=== PATIENT | male | born 1975 | race Caucasian/White ===

== ENCOUNTER 2019-09-05 20:43 | Emergency (ER) | payer SELFPAY ==
[~2019-09-05] VITALS: Ht 182.9 cm; Wt 65.8 kg
--- OUTSIDE RECORDS SUMMARY | 2019-09-05 20:46 | XMS REPORT ---
Author Author Admin, [place] Organization Unknown Address Unknown Phone Unavailable PROBLEMS Condition Status Date Provider Notes Hepatitis B immunity active Nela Santiikanth Hepatitis A immunity active Nela Santiikanth HIV infection active Nela Santiikabethanyh Osteopenia active Sandra Monge Increased transaminase level active Sandra Monge Hypercalcemia completed - Nela Blackh Hyperkalemia completed - Nela Blackh Hyponatremia completed - Nela Blackh Immunization update active Sandra Monge Onychomycosis, toenails active Sandra Monge SPECIAL SCREENING EXAMINATION OTH SPEC VIRAL DZ completed - Edgard Martin Presbyopia - OU active Chriss Martin Regular astigmatism, bilateral active Chriss Martin Myopia - OU active Chriss Martin Hx Bronchitis acute with bronchospasm completed - Nela Schroeder Hypertriglyceridemia active Sandra Monge Flu shot completed - Nela Blackh BMI < 20 active Sandra Monge Vitamin D deficiency active Sandra Monge Immunization update completed - Nela Schroeder Hx Latent tuberculosis, s/p INH/B6 active Sandra Monge Stop date 03/16/18 COPD active Sandra Monge seen on CXR TOBACCO USE DISORDER, MODERATE active Jasper Bobo ALCOHOL USE DISORDER, MODERATE active Jasper Bobo DEPRESSIVE DISORDER, OTHER SPECIFIED active Jasper Bobo Screening for hypercholesterolemia completed - Nela Schroeder ENCOUNTERS Date Type Provider Location Encounter Diagnosis - Ambulatory Encounter Dorothy Alberts [facility] Contact [facility] UNK - Ambulatory Encounter Isi Bliss [facility] Contact [facility] UNK - Ambulatory Encounter Buck Arringtons Isi Isbell [facility] Contact [facility] UNK - Ambulatory Encounter Nela Blackh [facility] UNK - Ambulatory Encounter Nela Canasnth [facility] UNK - Ambulatory Encounter Nela Schroeder [facility] UNK - Ambulatory Encounter Nela Pineda [facility] Screening for hypercholesterolemiaImmunization updateFlu shotHx Bronchitis acute with bronchospasmHyponatremiaHyperkalemiaHypercalcemia - Ambulatory Encounter Rinal Recinos [facility] UNK - Ambulatory Encounter Rinal Recinos Cliff Jackson [facility] UNK - Ambulatory Encounter Rinal Recinos [facility] UNK - Ambulatory Encounter Mare Carbajal [facility] UNK - Ambulatory Encounter Dorothy Nash [facility] Contact [facility] UNK - Ambulatory Encounter Rinal Recinos [facility] UNK - Ambulatory Encounter Cliff Arnold [facility] UNK - Ambulatory Encounter Nela Canasnth [facility] UNK - Ambulatory Encounter Nela Canasnth [facility] Adult Medicine UNK - Ambulatory Encounter Dorothy Edwin Nela Canasbethanykirill Canasbethanyh Srinath Alberts [facility] Contact Center UNK - Ambulatory Encounter Nela Canasbethanykirill Canasbethanyh [facility] Adult Medicine UNK - Ambulatory Encounter Martha Stallworth [facility] UNK - Ambulatory Encounter Nela Rondon Santikendrabethanyh [facility] Adult Medicine UNK - Ambulatory Encounter Nela Canasbethanykirill Rondon Santikendraanthony Stallworth [facility] Adult Medicine HIV infectionHepatitis A immunityHepatitis B immunity - Ambulatory Encounter Cliff Napier [facility] Contact Center UNK - Ambulatory Encounter Mare Carbajal [facility] Adult Medicine UNK - Ambulatory Encounter Rinal Recinos Cliff Napier [facility] Adult Medicine UNK - Ambulatory Encounter Cliff Recinos [facility] Adult [facility] UNK - Ambulatory Encounter Rinal Recinos [facility] Adult Medicine UNK - Ambulatory Encounter Rinal Recinos [facility] Adult Medicine UNK - Ambulatory Encounter Jazlyn Nash [facility] Adult Medicine UNK - Ambulatory Encounter Rinal Recinos [facility] Adult Medicine UNK - Ambulatory Encounter Rinal Recinos [facility] Adult Medicine UNK - Ambulatory Encounter Rinshara Recinos [facility] Adult Medicine UNK - Ambulatory Encounter Sandra Monge [facility] Adult Medicine UNK - Ambulatory Encounter Sandra Monge [facility] Adult Medicine Osteopenia - Ambulatory Encounter Cliff Jackson [facility] Adult Medicine UNK - Ambulatory Encounter Rinshara Recinos [facility] Adult Medicine UNK - Ambulatory Encounter Destinishara Jorje Jackson [facility] Adult Medicine UNK - Ambulatory Encounter Cliff Jackson [facility] Adult Medicine UNK - Ambulatory Encounter Cliff Jackson [facility] Adult Medicine UNK - Ambulatory Encounter Sandra Monge [facility] Jeromy Recinos [facility] Adult Medicine UNK - Ambulatory Encounter Sandra Monge [facility] Meghna Arnold [facility] Adult Medicine UNK - Ambulatory Encounter [facility] En[facility] Fax [facility] - Ambulatory Encounter Fax Status [facility] UNK - Ambulatory Encounter Fax Status [facility] UNK - Ambulatory Encounter Mare Jamison Rinal Recinos Ragini Murillo [facility] Adult Medicine UNK - Ambulatory Encounter Rinal Jorje Garvey Raven [facility] Adult Medicine UNK - Ambulatory Encounter Jeromy Recinos [facility] Adult Medicine UNK - Ambulatory Encounter Meghna Nash [facility] Adult Medicine UNK - Amb[facility] - Ambulatory Encounter Sandra Monge [facility] Adult Medicine UNK - Ambulatory Encounter Sandra Rubily Nash [facility] Adult Medicine UNK - Ambulatory Encounter Lashaun Monge [facility] UNK - Ambulatory Encounter Sandra Monge [facility] Adult Medicine UNK - Ambulatory Encounter Jeromy Recinos [facility] Adult Medicine UNK - Ambulatory Encounter Jeromy Jackson [facility] Adult Medicine UNK - Ambulatory Encounter Cliff Jackson [facility] Adult Medicine UNK - Ambulatory Encounter Meghna Nash [facility] Adult Medicine UNK - Ambulatory Encounter Cliff Jackson [facility] Adult Medicine UNK - Ambulatory Encounter Fax Status [facility] Services UNK - Ambulatory Encounter Fax Status [facility] Services UNK - Ambulatory Encounter Sandra Monge [facility] Adult Medicine UNK - Ambulatory Encounter Sandra Monge [facility] Adult Medicine UNK - Ambulatory Encounter Sandra Mariposa Coffman Charity Quiles [facility] Adult Medicine Increased transaminase level - Ambulatory Encounter Sandra GoldsteinLogkendrick [facility] Adult Medicine UNK - Ambulatory Encounter Sandra Mcgowan [facility] Adult Medicine UNK - Ambulatory Encounter Sandra GoldsteinLogkendrick [facility] Adult Medicine UNK - Ambulatory Encounter Sandra Monge [facility] Adult Medicine UNK - Ambulatory Encounter Sandra Martinez [facility] Adult Medicine Hx Bronchitis acute with bronchospasmHyponatremiaHyperkalemiaHypercalcemia - Ambulatory Encounter Sandra Lanza [facility], [facility] Adult Medicine UNK - Ambulatory Encounter Sandra Lanza [facility], [facility] Adult Medicine UNK - Ambulatory Encounter Cliff Jackson [facility] Adult Medicine UNK - Ambulatory Encounter Sandra Monge [facility] Adult Medicine UNK - Ambulatory Encounter Sandra GoldsteinLogkendrick Jackson [facility] Adult Medicine UNK - Ambulatory Encounter Sandra Lanza [facility], [facility] Adult Medicine UNK - Ambulatory Encounter Sandra Lanza [facility], [facility] Adult Medicine UNK - Ambulatory Encounter Boni Cristina [facility] Public Health Services UNK - Ambulatory Encounter Jazmin Bullard [facility] Vision UNK - Ambulatory Encounter Jazmin Bullard [facility] Vision UNK - Ambulatory Encounter Sandra Monge [facility] Adult Medicine UNK - Ambulatory Encounter Sandra Monge [facility] Adult Medicine UNK - Ambulatory Encounter Sandra Monge [facility] Adult Medicine UNK - Ambulatory Encounter Sandra Martinez [facility] Adult Medicine Onychomycosis, toenailsImmunization update - Ambulatory Encounter Jazmin Bullard [facility] Vision UNK - Ambulatory Encounter Edgard Song Mario Edgard Martin [facility] Vision UNK - Ambulatory Encounter Edgard Nohemi Mario Martin [facility] Vision UNK - Ambulatory Encounter Edgard Nohemi Mario Hoffmann [facility] Vision SPECIAL SCREENING EXAMINATION OTH SPEC VIRAL DZ - Ambulatory Encounter Chrissjesus Martin [facility] Vision UNK - Ambulatory Encounter Chrissjesus Martin [facility] Vision UNK - Ambulatory Encounter Chrissjesus Martin [facility] Vision UNK - Ambulatory Encounter Chrissjesus Martin Jazmin Bullard [facility] Vision Myopia - OURegular astigmatism, bilateralPresbyopia - OU - Ambulatory Encounter Sandra GoldsteinLogic [facility] Adult Medicine UNK - Ambulatory Encounter Sandra Vargas [facility] Adult Medicine UNK - Ambulatory Encounter Sandra Vargas [facility] Adult Medicine UNK - Ambulatory Encounter [facility] - Ambulatory Encounter Sandra Lanza [facility], [facility] Adult Medicine UNK - Ambulatory Encounter Sandra Lanza [facility], [facility] Adult Medicine UNK - Ambulatory Encounter Sandra Lanza [facility], [facility] Adult Medicine UNK - Ambulatory Encounter Sandra Lanza [facility], [facility] Adult Medicine UNK - Ambulatory Encounter Sandra Lanza [facility], [facility] Adult Medicine UNK - Ambulatory Encounter Sandra Lanza [facility], [facility] Adult Medicine UNK - Ambulatory Encounter Khloe Mckeon [facility] UNK - Ambulatory Encounter hKloe Lee [facility] UNK - Ambulatory Encounter Amaury Nath [facility] Adult Medicine UNK - Ambulatory Encounter Amaury Nath [facility] Adult Medicine UNK - Ambulatory Encounter Sandra Monge [facility] Adult Medicine UNK - Ambulatory Encounter Sandra Monge [facility] Adult Medicine UNK - Ambulatory Encounter Sandra Hill [facility] Adult Medicine Hx Latent tuberculosis, s/p INH/B6Hx Bronchitis acute with bronchospasm - Ambulatory Encounter Buck Ledesma [facility] Behavioral Health UNK - Ambulatory Encounter Buck Kowalski [facility] Health UNK - Ambulatory Encounter Sandra Vargas [facility] Adult Medicine UNK - Ambulatory Encounter Sandra aVrgas [facility] Adult Medicine UNK - Ambulatory Encounter Sandra Bush [facility] Services UNK - Ambulatory Encounter Buck Ledesma [facility] Behavioral Health UNK - Ambulatory Encounter Buck Ledesma [facility] Behavioral Health UNK - Ambulatory Encounter Buck Solares [facility] Contact Center UNK - Ambulatory Encounter Sandra Camarena [facility] Services UNK - Ambulatory Encounter Sandra Castro [facility] Adult Medicine UNK - Ambulatory Encounter Sandra Monge [facility] Adult Medicine UNK - Ambulatory Encounter Sandra Monge [facility] Adult Medicine UNK - Ambulatory Encounter Sandra Kessler [facility] Adult Medicine UNK - Ambulatory Encounter Sandra Monge [facility] Adult Medicine UNK - Ambulatory Encounter Sandra Kowalski [facility] Adult Medicine UNK - Ambulatory Encounter Nancy [facility] UNK - Ambulatory Encounter Khloe Lee [facility] UNK - Ambulatory Encounter Nancy GoldsteinLogic [facility] Adult Medicine UNK - Ambulatory Encounter Buck Burris [facility] Health UNK - Ambulatory Encounter Sandra Monge [facility] Adult Medicine UNK - Ambulatory Encounter Sandra Hill [facility] Adult Medicine Hx Latent tuberculosis, s/p INH/P6Tbyfzkyzoneeothnerrz - Ambulatory Encounter Sandra Monge [facility] Adult Medicine UNK - Ambulatory Encounter Sandra Boss [facility] Adult Medicine UNK - Ambulatory Encounter Buck Clarke [facility] UNK - Ambulatory Encounter Buck Ledesma [facility] Behavioral Health UNK - Ambulatory Encounter Buck GoldsteinLogic [facility] Behavioral Health UNK - Ambulatory Encounter Sandra Monge [facility] Adult Medicine UNK - Ambulatory Encounter Buck Caro [facility] Behavior[facility] Health UNK - Ambulatory Encounter Buck Burris [facility] Behavioral Health UNK - Ambulatory Encounter Lashaun Mckeon [facility] UNK - Ambulatory Encounter [facility] UNK - Ambulatory Encounter Buck Ledesma [facility] Health UNK - Ambulatory Encounter Buck Bliss [facility] Health UNK - Ambulatory Encounter Sandra Monge [employer] Adult Medicine UNK - Ambulatory Encounter Sandra Monge [facility] Adult Medicine UNK - Ambulatory Encounter Sandra Chen [facility] Adult Medicine Flu shot - Ambulatory Encounter Sandra GoldsteinLogkendrick [facility] Adult Medicine UNK - Ambulatory Encounter Sandra Chen [facility] Adult Medicine UNK - Ambulatory Encounter Sandra Monge [facility] Adult Medicine UNK - Ambulatory Encounter Sandra Chen [facility] Adult Medicine BMI < 20 - Ambulatory Encounter Sandra GoldsteinLogic [facility] Adult Medicine UNK - Ambulatory [facility] - Ambulatory Encounter Sandra Monge [facility] Adult Medicine UNK - Ambulatory Encounter Sandra Chen [facility] Adult Medicine Immunization updateVitamin D deficiency - Ambulatory Encounter [facility] UNK - Ambulatory Encounter Jason Gilliam [facility] UNK - Ambulatory Encounter Sandra Hill [facility] Adult Medicine UNK - Ambulatory Encounter [facility] Care Coordination Desktop Dex Martinez [facility] UNK - Ambulatory Encounter Sandra Monge [facility] Adult Medicine COPDHx Latent tuberculosis, s/p INH/B6 - Ambulatory Encounter Sandra Kowalski [facility] Adult Medicine UNK - Ambulatory Encounter Maximus Yancey [facility] Hook Up Driver UNK - Ambulatory Encounter Maximus Yancey [facility] Hook Up Driver UNK - Ambulatory Encounter Jason Nath [facility] UNK - Ambulatory Encounter Sandra Kowalski [facility] Adult Medicine UNK - Ambulatory Encounter Maximus Yancey [facility] Hook Up Driver UNK - Ambulatory Encounter Sandra Mcgowan [facility] Adult Medicine UNK - Ambulatory Encounter Maximus Yancey [facility] Hook Up Driver UNK - Ambulatory Encounter Sandra Monge [facility] Adult Medicine UNK - Ambulatory Encounter Jasper Keller [facility] Behavioral Health DEPRESSIVE DISORDER, OTHER SPECIFIEDALCOHOL USE DISORDER, MODERATETOBACCO USE DISORDER, MODERATE - Ambulatory Encounter Sandra Jamison [facility] Adult Medicine - Ambulatory Encounter Sandra Kowalski [facility] Adult Medicine UNK - Ambulatory Encounter Sandra Day [facility] Adult Medicine Screening for hypercholesterolemia - Ambulatory Encounter Adrian Cristina [facility] Public Health Services UNK - Ambulatory Encounter [facility] Vision UNK VITAL SIGNS No Information Available Allergies No Known Allergy Information REASON FOR REFERRAL No Information Available RESULTS Date Observation Value Provider Reference Range Interpretation Location alanine aminotransferase (SGPT), serum 26 1/L [facility] 0-44 " aspartate aminotransferase (SGOT), serum 37 1/L [facility] 0-40 " alkaline phosphatase, serum 62 1/L [facility] 39-117 " bilirubin, serum, total 0.7 mg/dL [facility] 0.0-1.2 " albumin/globulin ratio, serum 1.9 [facility] 1.2-2.2 " globulin, serum 2.6 [facility] 1.5-4.5 " albumin, serum 4.9 g/dL [facility] 3.5-5.5 " protein, total, serum 7.5 g/dL [facility] 6.0-8.5 " calcium, serum 10.9 mg/dL [facility] 8.7-10.2 High " carbon dioxide, venous blood 25 mmol/L [facility] 20-29 " chloride, serum 96 mmol/L [facility] 96-106 " potassium, serum 5.4 mmol/L [facility] 3.5-5.2 High " sodium, serum 137 mmol/L [facility] 134-144 " urea nitrogen/creatinine ratio, serum 12 [facility] 9-20 " eGFR if 73 mL/min/((173/100).m2) [facility] >59 " Estimated Glomerular Filtration Rate (calc) 64 mL/min/((173/100).m2) [facility] >59 " creatinine, serum 1.34 mg/dL [facility] 0.76-1.27 High " urea nitrogen, blood 16 mg/dL [facility] 6-24 " blood glucose, random 103 mg/dL [facility] 65-99 High calcium, urine, 24 hour 539.6 mg/24h [facility] 100.0-300.0 High " calcium, urine 9.9 mg/dL [facility] Not Estab. " creatinine, urine, 24 hour 2076 mg/24h [facility] [id number] High " creatinine, random, urine 38.1 mg/dL [facility] Not Estab. parathormone, serum 15 pg/mL [facility] 15-65 HIV-1RNA, serum, by PCR, quantitative <20 copies/mL [facility] " alanine aminotransferase (SGPT), serum 22 1/L [facility] 0-44 " aspartate aminotransferase (SGOT), serum 31 1/L [facility] 0-40 " alkaline phosphatase, serum 65 1/L [facility] 39-117 " bilirubin, serum, total 0.4 mg/dL [facility] 0.0-1.2 " albumin/globulin ratio, serum 2.2 [facility] 1.2-2.2 " globulin, serum 2.2 [facility] 1.5-4.5 " albumin, serum 4.9 g/dL [facility] 3.5-5.5 " protein, total, serum 7.1 g/dL [facility] 6.0-8.5 " calcium, serum 10.5 mg/dL [facility] 8.7-10.2 High " carbon dioxide, venous blood 26 mmol/L [facility] 20-29 " chloride, serum 92 mmol/L [facility] 96-106 Low " potassium, serum 5.0 mmol/L [facility] 3.5-5.2 " sodium, serum 135 mmol/L [facility] 134-144 " urea nitrogen/creatinine ratio, serum 10 [facility] 9-20 " eGFR if 89 mL/min/((173/100).m2) [facility] >59 " Estimated Glomerular Filtration Rate (calc) 77 mL/min/((173/100).m2) [facility] >59 " creatinine, serum 1.14 mg/dL [facility] 0.76-1.27 " urea nitrogen, blood 11 mg/dL [facility] 6-24 " blood glucose, random 89 mg/dL [facility] 65-99 " immature granulocytes, percentage of total cells, blood 0 % [facility] Not Estab. " basophil count, absolute 0.0 x10E3/uL [facility] 0.0-0.2 " Eosinophil Absolute Count 0.2 X10E3/UL [facility] 0.0-0.4 " monocyte count, blood, automated 0.6 X10E3/UL [facility] 0.1-0.9 " lymphocyte count, blood, automated 2.7 X10E3/UL [facility] 0.7-3.1 " Absolute Neutrophils 3.6 X10E3/UL [facility] 1.4-7.0 " basophils as percent of blood leukocytes 0 % [facility] Not Estab. " eosinophils as percent of blood leukocytes 2 % [facility] Not Estab. " monocytes as percent of blood leukocytes 8 % [facility] Not Estab. " lymphocytes as percent of blood leukocytes 38 % [facility] Not Estab. " neutrophils as percent of blood leukocytes 52 % [facility] Not Estab. " platelet count 213 X10E3/UL [facility] 150-450 " red blood cell distribution width 14.6 % [facility] 12.3-15.4 " mean corpuscular hemoglobin concentration, RBC 32.8 G/DL [facility] 31.5-35.7 " mean corpuscular hemoglobin, RBC 33.6 pg [facility] 26.6-33.0 High " mean corpuscular volume, RBC 102 fL [facility] 79-97 High " hematocrit, blood 45.7 % [facility] 37.5-51.0 " hemoglobin, blood 15.0 g/dL [facility] 13.0-17.7 " erythrocyte (RBC) count 4.47 X10E6/UL [facility] 4.14-5.80 " leukocyte count, blood 7.0 X10E3/UL [facility] 3.4-10.8 " CD4/CD8 ratio 1.06 [facility] 0.92-3.72 " T-suppressor cells (CD8) as percent of blood lymphocytes 47.4 % [facility] 12.0-35.5 High " absolute CD8 1280 [facility] 109-897 High " T-helper cells (CD4) as percent of blood lymphocytes 50.1 % [facility] 30.8-58.5 " T-helper cells (CD4) count 1353 /UL [facility] [id number] parathormone, serum 16 pg/mL [facility] 15-65 " magnesium, serum 2.0 mg/dL [facility] 1.6-2.3 " phosphate, serum 3.9 mg/dL [facility] 2.5-4.5 " vitamin D 25-hydroxy, serum 32.8 ng/mL [facility] 30.0-100.0 " globulins, serum, total 2.7 g/dL [facility] 2.2-3.9 " gamma globulin, serum, monoclonal spike Not Observed [facility] Not Observed " gamma globulin, serum 900 mg/dL [facility] Units converted. See lab report for original value. " beta globulin, serum 1.0 g/dL [facility] 0.7-1.3 " alpha-2 globulin, serum 0.6 g/dL [facility] 0.4-1.0 " alpha-1 globulin, serum 0.2 g/dL [facility] 0.0-0.4 " alanine aminotransferase (SGPT), serum 48 1/L [facility] 0-44 High " aspartate aminotransferase (SGOT), serum 49 1/L [facility] 0-40 High " alkaline phosphatase, serum 69 1/L [facility] 39-117 " bilirubin, serum, total 0.3 mg/dL [facility] 0.0-1.2 " albumin/globulin ratio, serum 1.5 [facility] 0.7-1.7 " globulin, serum 2.2 [facility] 1.5-4.5 " albumin, serum 4.1 g/dL [facility] 2.9-4.4 " protein, total, serum 6.8 g/dL [facility] 6.0-8.5 " calcium, serum 10.4 mg/dL [facility] 8.7-10.2 High " carbon dioxide, venous blood 26 mmol/L [facility] 20-29 " chloride, serum 95 mmol/L [facility] 96-106 Low " potassium, serum 4.9 mmol/L [facility] 3.5-5.2 " sodium, serum 135 mmol/L [facility] 134-144 " urea nitrogen/creatinine ratio, serum 9 [facility] 9-20 " eGFR if 90 mL/min/((173/100).m2) [facility] >59 " Estimated Glomerular Filtration Rate (calc) 78 mL/min/((173/100).m2) [facility] >59 " creatinine, serum 1.14 mg/dL [facility] 0.76-1.27 " urea nitrogen, blood 10 mg/dL [facility] 6-24 " blood glucose, random 78 mg/dL [facility] 65-99 osmolality, urine 157 MOSMOL/KG [facility] " calcium, urine, 24 hour 682.7 mg/24h [facility] 100.0-300.0 High " calcium, urine 11.1 mg/dL [facility] Not Estab. " creatinine, urine, 24 hour 1562 mg/24h [facility] [id number] " creatinine, random, urine 25.4 mg/dL [facility] Not Estab. " chloride, urine random <20 mmol/L [facility] Not Estab. " potassium, urine 7.7 mmol/L [facility] Not Estab. " sodium, urine 22 mmol/L [facility] Not Estab. hepatitis A antibody, total Positive [facility] Negative Abnormal " hepatitis B core antibody, total Negative [facility] Negative " hepatitis B surface antigen Negative [facility] Negative " hepatitis C antibody, serum <0.1 [facility] 0.0-0.9 " hepatitis B surface antibody Reactive [facility] " Hepatitis C virus (HCV) RNA, PCR, quantitative HCV Not Detected IU/mL [facility] " alanine aminotransferase (SGPT), serum 73 1/L [facility] 0-44 High " aspartate aminotransferase (SGOT), serum 71 1/L [facility] 0-40 High " alkaline phosphatase, serum 69 1/L [facility] 39-117 " bilirubin, serum, total 0.5 mg/dL [facility] 0.0-1.2 " albumin/globulin ratio, serum 2.0 [facility] 1.2-2.2 " globulin, serum 2.4 [facility] 1.5-4.5 " albumin, serum 4.9 g/dL [facility] 3.5-5.5 " protein, total, serum 7.3 g/dL [facility] 6.0-8.5 " calcium, serum 10.5 mg/dL [facility] 8.7-10.2 High " carbon dioxide, venous blood 29 mmol/L [facility] 20-29 " chloride, serum 96 mmol/L [facility] 96-106 " potassium, serum 5.1 mmol/L [facility] 3.5-5.2 " sodium, serum 136 mmol/L [facility] 134-144 " urea nitrogen/creatinine ratio, serum 9 [facility] 9-20 " eGFR if 102 mL/min/((173/100).m2) [facility] >59 " Estimated Glomerular Filtration Rate (calc) 88 mL/min/((173/100).m2) [facility] >59 " creatinine, serum 1.03 mg/dL [facility] 0.76-1.27 " urea nitrogen, blood 9 mg/dL [facility] 6-24 " blood glucose, random 101 mg/dL [facility] 65-99 High parathormone, serum 15 pg/mL [facility] 15-65 " calcium, serum, ionized 5.6 mg/dL [facility] 4.5-5.6 " LDL cholesterol, serum 44 mg/dL [facility] 0-99 " very low density lipoproteins 9 mg/dL [facility] 5-40 " HDL cholesterol, serum 115 mg/dL [facility] >39 " triglyceride, serum, fasting 43 mg/dL [facility] 0-149 " cholesterol, serum 168 mg/dL [facility] 100-199 " alanine aminotransferase (SGPT), serum 121 1/L [facility] 0-44 High " aspartate aminotransferase (SGOT), serum 167 1/L [facility] 0-40 High " alkaline phosphatase, serum 78 1/L [facility] 39-117 " bilirubin, serum, total 0.6 mg/dL [facility] 0.0-1.2 " albumin/globulin ratio, serum 1.8 [facility] 1.2-2.2 " globulin, serum 2.6 [facility] 1.5-4.5 " albumin, serum 4.8 g/dL [facility] 3.5-5.5 " protein, total, serum 7.4 g/dL [facility] 6.0-8.5 " calcium, serum 11.0 mg/dL [facility] 8.7-10.2 High " carbon dioxide, venous blood 27 mmol/L [facility] 20-29 " chloride, serum 90 mmol/L [facility] 96-106 Low " potassium, serum 5.3 mmol/L [facility] 3.5-5.2 High " sodium, serum 134 mmol/L [facility] 134-144 " urea nitrogen/creatinine ratio, serum 8 [facility] 9-20 Low " eGFR if 76 mL/min/((173/100).m2) [facility] >59 " Estimated Glomerular Filtration Rate (calc) 66 mL/min/((173/100).m2) [facility] >59 " creatinine, serum 1.31 mg/dL [facility] 0.76-1.27 High " urea nitrogen, blood 11 mg/dL [facility] 6-24 " blood glucose, random 92 mg/dL [facility] 65-99 creatinine, random, urine 76.1 mg/dL [facility] Not Estab. " sodium, urine <20 mmol/L [facility] Not Estab. " urinalysis, microscopic examination MICNIP [facility] " nitrate, urine Negative [facility] Negative " urobilinogen, urine, semiquantitative (dipstick) 0.2 [facility] 0.2-1.0 " bilirubin, urine Negative [facility] Negative " ketones, urine, by test strip Negative [facility] Negative " glucose, urine, semiquantitative Negative [facility] Negative " protein, urine, semiquantitative (dipstick) Negative [facility] Negative/Trace " leukocyte esterase, urine, by dipstick Negative [facility] Negative " appearance, urine Clear [facility] Clear " urine color Yellow [facility] Yellow " pH, urine, semiquantitative 6.5 [facility] 5.0-7.5 " specific gravity, body fluid 1.011 [facility] 1.005-1.030 vitamin D 25-hydroxy, serum 14.3 ng/mL [facility] 30.0-100.0 Low " rapid plasma reagin antibody, serum Non Reactive [facility] Non Reactive " HIV-1RNA, serum, by PCR, quantitative 160 /mL [facility] " LDL cholesterol, serum 36 mg/dL [facility] 0-99 " very low density lipoproteins 14 mg/dL [facility] 5-40 " HDL cholesterol, serum 109 mg/dL [facility] >39 " triglyceride, serum, fasting 71 mg/dL [facility] 0-149 " cholesterol, serum 159 mg/dL [facility] 100-199 " alanine aminotransferase (SGPT), serum 68 1/L [facility] 0-44 High " aspartate aminotransferase (SGOT), serum 98 1/L [facility] 0-40 High " alkaline phosphatase, serum 78 1/L [facility] 39-117 " bilirubin, serum, total 0.6 mg/dL [facility] 0.0-1.2 " albumin/globulin ratio, serum 2.2 [facility] 1.2-2.2 " globulin, serum 2.3 [facility] 1.5-4.5 " albumin, serum 5.0 g/dL [facility] 3.5-5.5 " protein, total, serum 7.3 g/dL [facility] 6.0-8.5 " calcium, serum 10.7 mg/dL [facility] 8.7-10.2 High " carbon dioxide, venous blood 23 mmol/L [facility] 20-29 " chloride, serum 91 mmol/L [facility] 96-106 Low " potassium, serum 5.6 mmol/L [facility] 3.5-5.2 High " sodium, serum 130 mmol/L [facility] 134-144 Low " urea nitrogen/creatinine ratio, serum 6 [facility] 9-20 Low " eGFR if 89 mL/min/((173/100).m2) [facility] >59 " Estimated Glomerular Filtration Rate (calc) 77 mL/min/((173/100).m2) [facility] >59 " creatinine, serum 1.15 mg/dL [facility] 0.76-1.27 " urea nitrogen, blood 7 mg/dL [facility] 6-24 " blood glucose, random 89 mg/dL [facility] 65-99 " immature granulocytes, percentage of total cells, blood 0 % [facility] Not Estab. " basophil count, absolute 0.0 x10E3/uL [facility] 0.0-0.2 " Eosinophil Absolute Count 0.1 X10E3/UL [facility] 0.0-0.4 " monocyte count, blood, automated 0.5 X10E3/UL [facility] 0.1-0.9 " lymphocyte count, blood, automated 1.9 X10E3/UL [facility] 0.7-3.1 " Absolute Neutrophils 3.3 X10E3/UL [facility] 1.4-7.0 " basophils as percent of blood leukocytes 1 % [facility] Not Estab. " eosinophils as percent of blood leukocytes 2 % [facility] Not Estab. " monocytes as percent of blood leukocytes 9 % [facility] Not Estab. " lymphocytes as percent of blood leukocytes 32 % [facility] Not Estab. " neutrophils as percent of blood leukocytes 56 % [facility] Not Estab. " platelet count 209 X10E3/UL [facility] 150-379 " red blood cell distribution width 15.2 % [facility] 12.3-15.4 " mean corpuscular hemoglobin concentration, RBC 34.1 G/DL [facility] 31.5-35.7 " mean corpuscular hemoglobin, RBC 33.1 pg [facility] 26.6-33.0 High " mean corpuscular volume, RBC 97 fL [facility] 79-97 " hematocrit, blood 51.9 % [facility] 37.5-51.0 High " hemoglobin, blood 17.7 g/dL [facility] 13.0-17.7 " erythrocyte (RBC) count 5.34 X10E6/UL [facility] 4.14-5.80 " leukocyte count, blood 5.9 X10E3/UL [facility] 3.4-10.8 " CD4/CD8 ratio 0.96 [facility] 0.92-3.72 " T-suppressor cells (CD8) as percent of blood lymphocytes 46.9 % [facility] 12.0-35.5 High " absolute CD8 891 [facility] 109-897 " T-helper cells (CD4) as percent of blood lymphocytes 45.2 % [facility] 30.8-58.5 " T-helper cells (CD4) count 859 /UL [facility] [phone] vitamin D 25-hydroxy, serum 35.4 ng/mL [facility] 30.0-100.0 " rapid plasma reagin antibody, serum Non Reactive [facility] Non Reactive " HIV-1RNA, serum, by PCR, quantitative <20 copies/mL [facility] " LDL cholesterol, serum 109 mg/dL [facility] 0-99 High " very low density lipoproteins 43 mg/dL [facility] 5-40 High " HDL cholesterol, serum 85 mg/dL [facility] >39 " triglyceride, serum, fasting 216 mg/dL [facility] 0-149 High " cholesterol, serum 237 mg/dL [facility] 100-199 High " alanine aminotransferase (SGPT), serum 21 1/L [facility] 0-44 " aspartate aminotransferase (SGOT), serum 31 1/L [facility] 0-40 " alkaline phosphatase, serum 78 1/L [facility] 39-117 " bilirubin, serum, total <0.2 mg/dL [facility] 0.0-1.2 " albumin/globulin ratio, serum 1.8 [facility] 1.2-2.2 " globulin, serum 2.8 [facility] 1.5-4.5 " albumin, serum 5.1 g/dL [facility] 3.5-5.5 " protein, total, serum 7.9 g/dL [facility] 6.0-8.5 " calcium, serum 11.0 mg/dL [facility] 8.7-10.2 High " carbon dioxide, venous blood 23 mmol/L [facility] 20-29 " chloride, serum 96 mmol/L [facility] 96-106 " potassium, serum 5.2 mmol/L [facility] 3.5-5.2 " sodium, serum 138 mmol/L [facility] 134-144 " urea nitrogen/creatinine ratio, serum 15 [facility] 9-20 " eGFR if 96 mL/min/((173/100).m2) [facility] >59 " Estimated Glomerular Filtration Rate (calc) 83 mL/min/((173/100).m2) [facility] >59 " creatinine, serum 1.08 mg/dL [facility] 0.76-1.27 " urea nitrogen, blood 16 mg/dL [facility] 6-24 " blood glucose, random 53 mg/dL [facility] 65-99 Low " immature granulocytes, percentage of total cells, blood 1 % [facility] Not Estab. " basophil count, absolute 0.0 x10E3/uL [facility] 0.0-0.2 " Eosinophil Absolute Count 0.1 X10E3/UL [facility] 0.0-0.4 " monocyte count, blood, automated 0.7 X10E3/UL [facility] 0.1-0.9 " lymphocyte count, blood, automated 2.7 X10E3/UL [facility] 0.7-3.1 " Absolute Neutrophils 3.6 X10E3/UL [facility] 1.4-7.0 " basophils as percent of blood leukocytes 0 % [facility] Not Estab. " eosinophils as percent of blood leukocytes 2 % [facility] Not Estab. " monocytes as percent of blood leukocytes 9 % [facility] Not Estab. " lymphocytes as percent of blood leukocytes 38 % [facility] Not Estab. " neutrophils as percent of blood leukocytes 50 % [facility] Not Estab. " platelet count 296 X10E3/UL [facility] 150-379 " red blood cell distribution width 14.3 % [facility] 12.3-15.4 " mean corpuscular hemoglobin concentration, RBC 33.6 G/DL [facility] 31.5-35.7 " mean corpuscular hemoglobin, RBC 34.5 pg [facility] 26.6-33.0 High " mean corpuscular volume, RBC 103 fL [facility] 79-97 High " hematocrit, blood 42.6 % [facility] 37.5-51.0 " hemoglobin, blood 14.3 g/dL [facility] 13.0-17.7 " erythrocyte (RBC) count 4.15 X10E6/UL [facility] 4.14-5.80 " leukocyte count, blood 7.2 X10E3/UL [facility] 3.4-10.8 " CD4/CD8 ratio 0.90 [facility] 0.92-3.72 Low " T-suppressor cells (CD8) as percent of blood lymphocytes 50.2 % [facility] 12.0-35.5 High " absolute CD8 1355 [facility] 109-897 High " T-helper cells (CD4) as percent of blood lymphocytes 45.1 % [facility] 30.8-58.5 " T-helper cells (CD4) count 1218 /UL [facility] [id number] rapid plasma reagin antibody, serum Non Reactive [facility] Non Reactive " HIV-1RNA, serum, by PCR, quantitative <20 copies/mL [facility] " LDL cholesterol, serum 65 mg/dL [facility] 0-99 " very low density lipoproteins 39 mg/dL [facility] 5-40 " HDL cholesterol, serum 36 mg/dL [facility] >39 Low " triglyceride, serum, fasting 194 mg/dL [facility] 0-149 High " cholesterol, serum 140 mg/dL [facility] 100-199 " alanine aminotransferase (SGPT), serum 51 1/L [facility] 0-44 High " aspartate aminotransferase (SGOT), serum 96 1/L [facility] 0-40 High " alkaline phosphatase, serum 74 1/L [facility] 39-117 " bilirubin, serum, total 1.3 mg/dL [facility] 0.0-1.2 High " albumin/globulin ratio, serum 1.5 [facility] 1.2-2.2 " globulin, serum 2.8 [facility] 1.5-4.5 " albumin, serum 4.1 g/dL [facility] 3.5-5.5 " protein, total, serum 6.9 g/dL [facility] 6.0-8.5 " calcium, serum 10.0 mg/dL [facility] 8.7-10.2 " carbon dioxide, venous blood 24 mmol/L [facility] 18-29 " chloride, serum 93 mmol/L [facility] 96-106 Low " potassium, serum 4.9 mmol/L [facility] 3.5-5.2 " sodium, serum 135 mmol/L [facility] 134-144 " urea nitrogen/creatinine ratio, serum 13 [facility] 9-20 " eGFR if 68 mL/min/((173/100).m2) [facility] >59 " Estimated Glomerular Filtration Rate (calc) 59 mL/min/((173/100).m2) [facility] >59 Low " creatinine, serum 1.44 mg/dL [facility] 0.76-1.27 High " urea nitrogen, blood 18 mg/dL [facility] 6-24 " blood glucose, random 106 mg/dL [facility] 65-99 High " immature granulocytes, percentage of total cells, blood 0 % [facility] Not Estab. " basophil count, absolute 0.0 x10E3/uL [facility] 0.0-0.2 " Eosinophil Absolute Count 0.1 X10E3/UL [facility] 0.0-0.4 " monocyte count, blood, automated 0.8 X10E3/UL [facility] 0.1-0.9 " lymphocyte count, blood, automated 3.1 X10E3/UL [facility] 0.7-3.1 " Absolute Neutrophils 4.6 X10E3/UL [facility] 1.4-7.0 " basophils as percent of blood leukocytes 0 % [facility] Not Estab. " eosinophils as percent of blood leukocytes 1 % [facility] Not Estab. " monocytes as percent of blood leukocytes 9 % [facility] Not Estab. " lymphocytes as percent of blood leukocytes 36 % [facility] Not Estab. " neutrophils as percent of blood leukocytes 54 % [facility] Not Estab. " platelet count 285 X10E3/UL [facility] 150-379 " red blood cell distribution width 14.7 % [facility] 12.3-15.4 " mean corpuscular hemoglobin concentration, RBC 34.2 G/DL [facility] 31.5-35.7 " mean corpuscular hemoglobin, RBC 34.5 pg [facility] 26.6-33.0 High " mean corpuscular volume, RBC 101 fL [facility] 79-97 High " hematocrit, blood 38.6 % [facility] 37.5-51.0 " hemoglobin, blood 13.2 g/dL [facility] 13.0-17.7 " erythrocyte (RBC) count 3.83 X10E6/UL [facility] 4.14-5.80 Low " leukocyte count, blood 8.5 X10E3/UL [facility] 3.4-10.8 " CD4/CD8 ratio 0.86 [facility] 0.92-3.72 Low " T-suppressor cells (CD8) as percent of blood lymphocytes 50.3 % [facility] 12.0-35.5 High " absolute CD8 1559 [facility] 109-897 High " T-helper cells (CD4) as percent of blood lymphocytes 43.2 % [facility] 30.8-58.5 " T-helper cells (CD4) count 1339 /UL [facility] [id number] rapid plasma reagin antibody, serum Non Reactive [facility] Non Reactive " HIV-1RNA, serum, by PCR, quantitative <20 copies/mL [facility] " LDL cholesterol, serum 45 mg/dL [facility] 0-99 " very low density lipoproteins 71 mg/dL [facility] 5-40 High " HDL cholesterol, serum 55 mg/dL [facility] >39 " triglyceride, serum, fasting 357 mg/dL [facility] 0-149 High " cholesterol, serum 171 mg/dL [facility] 100-199 " alanine aminotransferase (SGPT), serum 25 1/L [facility] 0-44 " aspartate aminotransferase (SGOT), serum 37 1/L [facility] 0-40 " alkaline phosphatase, serum 54 1/L [facility] 39-117 " bilirubin, serum, total 0.3 mg/dL [facility] 0.0-1.2 " albumin/globulin ratio, serum 2.0 [facility] 1.2-2.2 " globulin, serum 2.3 [facility] 1.5-4.5 " albumin, serum 4.6 g/dL [facility] 3.5-5.5 " protein, total, serum 6.9 g/dL [facility] 6.0-8.5 " calcium, serum 10.0 mg/dL [facility] 8.7-10.2 " carbon dioxide, venous blood 24 mmol/L [facility] 18-29 " chloride, serum 100 mmol/L [facility] 96-106 " potassium, serum 5.5 mmol/L [facility] 3.5-5.2 High " sodium, serum 140 mmol/L [facility] 134-144 " urea nitrogen/creatinine ratio, serum 15 [facility] 9-20 " eGFR if 93 mL/min/((173/100).m2) [facility] >59 " Estimated Glomerular Filtration Rate (calc) 80 mL/min/((173/100).m2) [facility] >59 " creatinine, serum 1.12 mg/dL [facility] 0.76-1.27 " urea nitrogen, blood 17 mg/dL [facility] 6-24 " blood glucose, random 87 mg/dL [facility] 65-99 " immature granulocytes, percentage of total cells, blood 0 % [facility] Not Estab. " basophil count, absolute 0.0 x10E3/uL [facility] 0.0-0.2 " Eosinophil Absolute Count 0.1 X10E3/UL [facility] 0.0-0.4 " monocyte count, blood, automated 0.6 X10E3/UL [facility] 0.1-0.9 " lymphocyte count, blood, automated 2.4 X10E3/UL [facility] 0.7-3.1 " Absolute Neutrophils 3.3 X10E3/UL [facility] 1.4-7.0 " basophils as percent of blood leukocytes 1 % [facility] Not Estab. " eosinophils as percent of blood leukocytes 2 % [facility] Not Estab. " monocytes as percent of blood leukocytes 9 % [facility] Not Estab. " lymphocytes as percent of blood leukocytes 37 % [facility] Not Estab. " neutrophils as percent of blood leukocytes 51 % [facility] Not Estab. " platelet count 243 X10E3/UL [facility] 150-379 " red blood cell distribution width 13.6 % [facility] 12.3-15.4 " mean corpuscular hemoglobin concentration, RBC 33.6 G/DL [facility] 31.5-35.7 " mean corpuscular hemoglobin, RBC 35.9 pg [facility] 26.6-33.0 High " mean corpuscular volume, RBC 107 fL [facility] 79-97 High " hematocrit, blood 43.7 % [facility] 37.5-51.0 " hemoglobin, blood 14.7 g/dL [facility] 13.0-17.7 " erythrocyte (RBC) count 4.10 X10E6/UL [facility] 4.14-5.80 Low " leukocyte count, blood 6.4 X10E3/UL [facility] 3.4-10.8 " CD4/CD8 ratio 1.01 [facility] 0.92-3.72 " T-suppressor cells (CD8) as percent of blood lymphocytes 47.6 % [facility] 12.0-35.5 High " absolute CD8 1142 [facility] 109-897 High " T-helper cells (CD4) as percent of blood lymphocytes 48.2 % [facility] 30.8-58.5 " T-helper cells (CD4) count 1157 /UL [facility] [phone] rapid plasma reagin antibody, serum Non Reactive [facility] Non Reactive " HIV-1RNA, serum, by PCR, quantitative <20 copies/mL [facility] " LDL cholesterol, serum 24 mg/dL [facility] 0-99 " very low density lipoproteins 74 mg/dL [facility] 5-40 High " HDL cholesterol, serum 68 mg/dL [facility] >39 " triglyceride, serum, fasting 368 mg/dL [facility] 0-149 High " cholesterol, serum 166 mg/dL [facility] 100-199 " alanine aminotransferase (SGPT), serum 28 1/L [facility] 0-44 " aspartate aminotransferase (SGOT), serum 34 1/L [facility] 0-40 " alkaline phosphatase, serum 53 1/L [facility] 39-117 " bilirubin, serum, total 0.3 mg/dL [facility] 0.0-1.2 " albumin/globulin ratio, serum 1.7 [facility] 1.2-2.2 " globulin, serum 2.5 [facility] 1.5-4.5 " albumin, serum 4.3 g/dL [facility] 3.5-5.5 " protein, total, serum 6.8 g/dL [facility] 6.0-8.5 " calcium, serum 10.2 mg/dL [facility] 8.7-10.2 " carbon dioxide, venous blood 23 mmol/L [facility] 18-29 " chloride, serum 95 mmol/L [facility] 96-106 Low " potassium, serum 5.0 mmol/L [facility] 3.5-5.2 " sodium, serum 136 mmol/L [facility] 134-144 " urea nitrogen/creatinine ratio, serum 17 [facility] 9-20 " eGFR if 96 mL/min/((173/100).m2) [facility] >59 " Estimated Glomerular Filtration Rate (calc) 83 mL/min/((173/100).m2) [facility] >59 " creatinine, serum 1.09 mg/dL [facility] 0.76-1.27 " urea nitrogen, blood 18 mg/dL [facility] 6-24 " blood glucose, random 83 mg/dL [facility] 65-99 " immature granulocytes, percentage of total cells, blood 0 % [facility] " basophil count, absolute 0.0 x10E3/uL [facility] 0.0-0.2 " Eosinophil Absolute Count 0.1 X10E3/UL [facility] 0.0-0.4 " monocyte count, blood, automated 0.7 X10E3/UL [facility] 0.1-0.9 " lymphocyte count, blood, automated 2.7 X10E3/UL [facility] 0.7-3.1 " Absolute Neutrophils 3.4 X10E3/UL [facility] 1.4-7.0 " basophils as percent of blood leukocytes 1 % [facility] " eosinophils as percent of blood leukocytes 2 % [facility] " monocytes as percent of blood leukocytes 10 % [facility] " lymphocytes as percent of blood leukocytes 39 % [facility] " neutrophils as percent of blood leukocytes 48 % [facility] " platelet count 247 X10E3/UL [facility] 150-379 " red blood cell distribution width 13.9 % [facility] 12.3-15.4 " mean corpuscular hemoglobin concentration, RBC 34.1 G/DL [facility] 31.5-35.7 " mean corpuscular hemoglobin, RBC 35.1 pg [facility] 26.6-33.0 High " mean corpuscular volume, RBC 103 fL [facility] 79-97 High " hematocrit, blood 43.7 % [facility] 37.5-51.0 " hemoglobin, blood 14.9 g/dL [facility] 12.6-17.7 " erythrocyte (RBC) count 4.25 X10E6/UL [facility] 4.14-5.80 " leukocyte count, blood 7.0 X10E3/UL [facility] 3.4-10.8 " CD4/CD8 ratio 0.97 [facility] 0.92-3.72 " T-suppressor cells (CD8) as percent of blood lymphocytes 47.9 % [facility] 12.0-35.5 High " absolute CD8 1293 [facility] [phone] High " T-helper cells (CD4) as percent of blood lymphocytes 46.6 % [facility] 30.8-58.5 " T-helper cells (CD4) count 1258 /UL [facility] [phone] vitamin D 25-hydroxy, serum 15.4 ng/mL [facility] 30.0-100.0 Low " rapid plasma reagin antibody, serum Non Reactive [facility] Non Reactive " HIV-1RNA, serum, by PCR, quantitative 30 /mL [facility] " LDL cholesterol, serum 78 mg/dL [facility] 0-99 " very low density lipoproteins 27 mg/dL [facility] 5-40 " HDL cholesterol, serum 92 mg/dL [facility] >39 " triglyceride, serum, fasting 134 mg/dL [facility] 0-149 " cholesterol, serum 197 mg/dL [facility] 100-199 " alanine aminotransferase (SGPT), serum 15 1/L [facility] 0-44 " aspartate aminotransferase (SGOT), serum 23 1/L [facility] 0-40 " alkaline phosphatase, serum 56 1/L [facility] 39-117 " bilirubin, serum, total 0.4 mg/dL [facility] 0.0-1.2 " albumin/globulin ratio, serum 1.9 [facility] 1.2-2.2 " globulin, serum 2.5 [facility] 1.5-4.5 " albumin, serum 4.8 g/dL [facility] 3.5-5.5 " protein, total, serum 7.3 g/dL [facility] 6.0-8.5 " calcium, serum 10.3 mg/dL [facility] 8.7-10.2 High " carbon dioxide, venous blood 22 mmol/L [facility] 18-29 " chloride, serum 97 mmol/L [facility] 96-106 " potassium, serum 4.4 mmol/L [facility] 3.5-5.2 " sodium, serum 137 mmol/L [facility] 134-144 " urea nitrogen/creatinine ratio, serum 13 [facility] 9-20 " eGFR if 104 mL/min/((173/100).m2) [facility] >59 " Estimated Glomerular Filtration Rate (calc) 90 mL/min/((173/100).m2) [facility] >59 " creatinine, serum 1.02 mg/dL [facility] 0.76-1.27 " urea nitrogen, blood 13 mg/dL [facility] 6-24 " blood glucose, random 90 mg/dL [facility] 65-99 " immature granulocytes, percentage of total cells, blood 0 % [facility] " basophil count, absolute 0.0 x10E3/uL [facility] 0.0-0.2 " Eosinophil Absolute Count 0.2 X10E3/UL [facility] 0.0-0.4 " monocyte count, blood, automated 0.8 X10E3/UL [facility] 0.1-0.9 " lymphocyte count, blood, automated 2.5 X10E3/UL [facility] 0.7-3.1 " Absolute Neutrophils 5.4 X10E3/UL [facility] 1.4-7.0 " basophils as percent of blood leukocytes 0 % [facility] " eosinophils as percent of blood leukocytes 2 % [facility] " monocytes as percent of blood leukocytes 9 % [facility] " lymphocytes as percent of blood leukocytes 28 % [facility] " neutrophils as percent of blood leukocytes 61 % [facility] " platelet count 221 X10E3/UL [facility] 150-379 " red blood cell distribution width 14.3 % [facility] 12.3-15.4 " mean corpuscular hemoglobin concentration, RBC 33.9 G/DL [facility] 31.5-35.7 " mean corpuscular hemoglobin, RBC 34.8 pg [facility] 26.6-33.0 High " mean corpuscular volume, RBC 103 fL [facility] 79-97 High " hematocrit, blood 44.2 % [facility] 37.5-51.0 " hemoglobin, blood 15.0 g/dL [facility] 12.6-17.7 " erythrocyte (RBC) count 4.31 X10E6/UL [facility] 4.14-5.80 " leukocyte count, blood 9.0 X10E3/UL [facility] 3.4-10.8 " CD4/CD8 ratio 0.91 [facility] 0.92-3.72 Low " T-suppressor cells (CD8) as percent of blood lymphocytes 50.8 % [facility] 12.0-35.5 High " absolute CD8 1270 [facility] [id number] High " T-helper cells (CD4) as percent of blood lymphocytes 46.3 % [facility] 30.8-58.5 " T-helper cells (CD4) count 1158 /UL [facility] [phone] HIV genotype result done Sandra Monge Non-nucleotide Reverse Transcriptase Inhibitors none Sandra Monge " Nucleotide Reverse transcriptase inhibitor none Sandra Monge c-reactive protein, quantitative, serum <0.3 mg/L [facility] 0.0-4.9 " erythrocyte sedimentation rate 2 mm/h [facility] 0-15 " Quantiferon Gold TB blood test for tuberculosis screening Positive [facility] Negative Abnormal " vitamin D 25-hydroxy, serum 16.9 ng/mL [facility] 30.0-100.0 Low " rheumatoid factor 10.4 [iU]/mL [facility] 0.0-13.9 " folate, serum 3.5 ng/mL [facility] >3.0 " B-12, serum 471 pg/mL [facility] [phone]/04/21 human leukocyte antigen B57 negative Sandra Monge hepatitis A antibody, total Positive [facility] Negative Abnormal " hepatitis B core antibody, total Negative [facility] Negative " hepatitis B surface antigen Negative [facility] Negative " rapid plasma reagin antibody, serum Non Reactive [facility] Non Reactive " hepatitis C antibody, serum 0.2 [facility] 0.0-0.9 " HIV-2 antibodies, western blot Negative [facility] Negative " HIV-1/HIV-2 Ab, serum Positive [facility] Negative Abnormal " HIV-CMIA (Chemiluminescent Microparticle Immuno Assay) REAALG [facility] Non Reactive " toxoplasma gondii antibody, IgG <3.0 [facility] 0.0-7.1 " hepatitis B surface antibody Reactive [facility] " HIV-1RNA, serum, by PCR, quantitative <20 copies/mL [facility] " LDL cholesterol, serum 80 mg/dL [facility] 0-99 " very low density lipoproteins 22 mg/dL [facility] 5-40 " HDL cholesterol, serum 88 mg/dL [facility] >39 " triglyceride, serum, fasting 112 mg/dL [facility] 0-149 " cholesterol, serum 190 mg/dL LinkLogic 100-199 " alanine aminotransferase (SGPT), serum 12 1/L LinkLogic 0-44 " aspartate aminotransferase (SGOT), serum 19 1/L LinkLog[facility] 0-40 " alkaline phosphatase, serum 57 1/L LinkLog[facility] 39-117 " bilirubin, serum, total 0.2 mg/dL [facility]Log[facility] 0.0-1.2 " albumin/globulin ratio, serum 2.0 [employer] 1.2-2.2 " globulin, serum 2.4 LinkLogic 1.5-4.5 " albumin, serum 4.8 g/dL [facility] 3.5-5.5 " protein, total, serum 7.2 g/dL [facility]Log[facility] 6.0-8.5 " calcium, serum 9.9 mg/dL [facility] 8.7-10.2 " carbon dioxide, venous blood 22 mmol/L LinkLog[facility] 18-29 " chloride, serum 100 mmol/L LinkLog[facility] 96-106 " potassium, serum 4.7 mmol/L [facility]Log[facility] 3.5-5.2 " sodium, serum 139 mmol/L LinkLogic 134-144 " urea nitrogen/creatinine ratio, serum 16 LinkLogic 9-20 " eGFR if 100 mL/min/((173/100).m2) LinkLogic >59 " Estimated Glomerular Filtration Rate (calc) 86 mL/min/((173/100).m2) LinkLogic >59 " creatinine, serum 1.06 mg/dL LinkLog[facility] 0.76-1.27 " urea nitrogen, blood 17 mg/dL LinkLog[facility] 6-24 " blood glucose, random 85 mg/dL LinkLog[facility] 65-99 " immature granulocytes, percentage of total cells, blood 0 % [facility]Log[facility] " basophil count, absolute 0.0 x10E3/uL [facility]Log[facility] 0.0-0.2 " Eosinophil Absolute Count 0.2 X10E3/UL LinkLog[facility] 0.0-0.4 " monocyte count, blood, automated 0.7 X10E3/UL LinkLog[facility] 0.1-0.9 " lymphocyte count, blood, automated 2.7 X10E3/UL [facility]Log[facility] 0.7-3.1 " Absolute Neutrophils 5.6 X10E3/UL LinkLog[facility] 1.4-7.0 " basophils as percent of blood leukocytes 0 % [facility]Log[facility] " eosinophils as percent of blood leukocytes 2 % [facility]Log[facility] " monocytes as percent of blood leukocytes 7 % [facility]Log[facility] " lymphocytes as percent of blood leukocytes 30 % LinkLog[facility] " neutrophils as percent of blood leukocytes 61 % [facility]Log[facility] " platelet count 221 X10E3/UL LinkLog[facility] 150-379 " red blood cell distribution width 13.5 % LinkLog[facility] 12.3-15.4 " mean corpuscular hemoglobin concentration, RBC 33.7 G/DL [facility]Log[facility] 31.5-35.7 " mean corpuscular hemoglobin, RBC 34.3 pg [facility]Log[facility] 26.6-33.0 High " mean corpuscular volume, RBC 102 fL LinkLog[facility] 79-97 High " hematocrit, blood 45.1 % LinkLog[facility] 37.5-51.0 " hemoglobin, blood 15.2 g/dL [facility]Log[facility] 12.6-17.7 " erythrocyte (RBC) count 4.43 X10E6/UL LinkLog[facility] 4.14-5.80 " leukocyte count, blood 9.3 X10E3/UL [facility] 3.4-10.8 " CD4/CD8 ratio 0.90 LinkLog[facility] 0.92-3.72 Low " T-suppressor cells (CD8) as percent of blood lymphocytes 50.6 % Link[facility] 12.0-35.5 High " absolute CD8 1366 LinkLogic 109-897 High " T-helper cells (CD4) as percent of blood lymphocytes 45.4 % LinkLog[facility] 30.8-58.5 " T-helper cells (CD4) count 1226 /UL LinkLogic [id number] HISTORY OF IMMUNIZATIONS Date Vaccine Dose Lot Number Status joleneactra [facility] [id number] sanofi pasteur 0.5 mL [id number] completed HISTORY OF MEDICATION USE Medication Instructions Dates Provider Comments PIFELTRO 100 MG ORAL TABLET Take 1 tablet orally once daily Nela Schroeder ONDANSETRON 4 MG ORAL TABLET DISINTEGRATING 1 By Mouth every 8 hours as needed for nausea/vomiting. Sandra Monge PREZCOBIX 800-150 MG ORAL TABLET 1 tab by mouth daily with food - Nela Schroeder FENOFIBRATE 48 MG ORAL TABLET tk 1 t By Mouth Every Day - Nela Schroeder B12 1GM DAILY Sandra Monge AZITHROMYCIN 250 MG ORAL TABLET 2 tablets by mouth on day one then one tablet by mouth each day for a total of 5 days - Sandra Monge XOPENEX HFA 45 MCG HFA AER AD INHALE TWO PUFFS BY MOUTH EVERY 4 TO 6 HOURS NEEDED Estrellita BowserAdherperez, ok to change per Dr. Monge, due to patient side effects with Albuterol HFA MEDROL 4 MG ORAL TABLET THERAPY PACK use as directed - Sandra Monge FENOFIBRATE 40 MG TABLET TAKE ONE TABLET BY MOUTH EVERY DAY - Lashaun Mckeon TIVICAY 50 MG ORAL TABLET 1 By Mouth once a day Sandra Monge DESCOVY 200-25 MG ORAL TABLET 1 tab by mouth daily with food - Nela Shrikanth PROZAC 40 MG ORAL CAPSULE 1 By Mouth Every Day - Sandra Monge DEON D3 1,000 IUS ONE A DAY Sandra Monge PYRIDOXINE HCL 100 MG ORAL TABLET 1 By Mouth Every Day for 9 mos. STOP DATE IS 01/17/18 - Sandra Monge ISONIAZID 300 MG ORAL TABLET 1 By Mouth Every Day for 9 mos. STOP DATE IS 03/16/18 - Sandra Monge PROZAC 20 MG ORAL CAPSULE 1 By Mouth Every Day - Sandra Monge METOPROLOL SUCCINATE ER 50 MG ORAL TABLET EXTENDED RELEASE 24 HOUR 1 tab by mouth daily Sandra Monge ENALAPRIL MALEATE 20 MG TABLET TAKE ONE TABLET BY MOUTH TWO TIMES A DAY Estrellita Meadows, EPZICOM 600-300 MG ORAL TABLET 1 By Mouth Every Day with food - Sandra Monge NORVIR 100 MG ORAL TABLET 1 By Mouth Every Day - Sandra Moneg PREZISTA 800 MG ORAL TABLET 1 by mouth once a day with food - Sandra Monge SOCIAL HISTORY Date Observation Value Provider time of call 08/02/2019 4:59 PM Apurva Isbell drug use, illicit Previously Dorothy Pineda " alcohol use Currently Dorothy Edwin " social history E&M Single. Single. Parents when pt was age 16, mother and father both remarried. Relationship with father "I love him but don't like him... we talk on phone 1x a week". Relationship with mother and step-father "perfect and very good". One younger brother, "get along well, he is very busy though". Not homeless. Born in [facility]. City: [place]. State: [place]. Lives w/ mom and step-father in [place], 2 cats. Unemployed since November 2016. Highest education level: bachelor's degree. Not in workforce. Not on disability. 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 Bachelor's degree in Welsh Literature at [employer]. Sex at : Male. Sexual orientation: Palacio. Gender identity: Male. Gender of partner(s): Male. Age of first sexual intercourse: 17. Sexually Active: No. Not sexually active. Dorothy Pineda " social history reviewed E&M reviewed today Dorothy Pineda " assessment of health literacy ([employer]ITY [employer] 2014 Standards, 3C10) Adequate Dorothy Pineda " passive cigarette smoke exposure No Dorothy Pineda " smoking status current every day smoker Dorothy Pineda drug use, illicit Previously Cliff Jackson " alcohol use Currently Cliff Jackson " social history E&M Single. Single. Parents when pt was age 16, mother and father both remarried. Relationship with father "I love him but don't like him... we talk on phone 1x a week". Relationship with mother and step-father "perfect and very good". One younger brother, "get along well, he is very busy though". Not homeless. Born in [place]. City: [place]. State: [place]. Lives w/ mom and step-father in [place], cats. Unemployed since November 2016. Highest education level: bachelor's degree. Not in workforce. Not on disability. 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 Bachelor's degree in Welsh Literature at [employer]. Sex at : Male. Sexual orientation: Palacio. Gender identity: Male. Gender of partner(s): Male. Age of first sexual intercourse: 17. Sexually Active: No. Not sexually active. Cliff Jackson " social history reviewed E&M reviewed today Bethanyjaswant Manuel " is there any chance that you could be ? No Cliff Jackson " assessment of health literacy (COMM[employer]ITY [employer] 2014 Standards, 3C10) Adequate Cliff Jackson " passive cigarette smoke exposure Yes Cliff Jackson " smoking status current every day smoker Cliff Jackson time of call 05/28/2019 1:25 PM Jazlyn Arnold time of call 05/25/2019 3:44 PM Srinath Edwin time of call 05/24/2019 9:01 AM Martha Stallworth smoking status current every day smoker Kari Crawford " drug use, illicit Previously Kari Crawford " alcohol use Currently Kari Crawford " is there any chance that you could be ? No Kari Crawford " Exercise Program Referral T Kari Crawford " Weight Management Counseling Provided T Kari Crawford " Nutrition intervention T Kari Crawford time of call 05/21/2019 4:17 PM Leonor Napier drug use, illicit Previously Cliff Jackson " alcohol use Currently Sheebarachell Manuel " social history E&M Single. Single. Parents when pt was age 16, mother and father both remarried. Relationship with father "I love him but don't like him... we talk on phone 1x a week". Relationship with mother and step-father "perfect and very good". One younger brother, "get along well, he is very busy though". Not homeless. Born in [facility]. City: [place]. State: [place]. Lives w/ mom and step-father in [place], 2 cats. Unemployed since November 2016. Highest education level: bachelor's degree. Not in workforce. Not on disability. 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 Bachelor's degree in Welsh Literature at [employer]. Sex at : Male. Sexual orientation: Palacio. Gender identity: Male. Gender of partner(s): Male. Age of first sexual intercourse: 17. Sexually Active: No. Not sexually active. Cliff Jackson " social history reviewed E&M reviewed today Cliff Manuel " is there any chance that you could be ? No Bethanyjaswant Manuel " assessment of health literacy (COMMUNITY HE[employer] 2014 Standards, 3C10) Adequate Bethanylouiserachell Jackson " passive cigarette smoke exposure Yes Trenasofia Manuel " smoking status current every day smoker Bethanyjaswant Manuel " smoking, advice to quit Yes Sandra Monge " Exercise Program Referral T Sandra Monge " Weight Management Counseling Provided T Sandra Monge " Nutrition intervention T Sandra Monge " drug use, illicit Previously Angi Juan " alcohol use Currently Angi Juan " social history E&M Single. Single. Parents when pt was age 16, mother and father both remarried. Relationship with father "I love him but don't like him... we talk on phone 1x a week". Relationship with mother and step-father "perfect and very good". One younger brother, "get along well, he is very busy though". Not homeless. Born in [facility]. City: [place]. State: [place]. Lives w/ mom and step-father in [place], cats. Unemployed since November 2016. Highest education level: bachelor's degree. Not in workforce. Not on disability. 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 Bachelor's degree in Welsh Literature at [employer]. Sex at : Male. Sexual orientation: Palacio. Gender identity: Male. Gender of partner(s): Male. Age of first sexual intercourse: 17. Sexually Active: No. Not sexually active. Angi Martinez " social history reviewed E&M reviewed today Angi Martinez " sexual orientation Palacio Angi Martinez " is there any chance that you could be ? No Angi Martinez " assessment of health literacy (COMMUNITY HE[employer] 2014 Standards, 3C10) Adequate Angi Hessrod " passive cigarette smoke exposure Yes Angi Martinez " smoking status current every day smoker Angi Hessrod time of call 12/02/2018 10:35 AM Adrian Cristina Exercise Program Referral T Sandra Monge " Weight Management Counseling Provided T Sandra Monge " Nutrition intervention T Sandra Mnoge " smoking, advice to quit Yes Sandra Monge " drug use, illicit Previously Angi Martinez " alcohol use Currently Angi Martinez " social history E&M Single. Single. Parents when pt was age 16, mother and father both remarried. Relationship with father "I love him but don't like him... we talk on phone 1x a week". Relationship with mother and step-father "perfect and very good". One younger brother, "get along well, he is very busy though". Not homeless. Born in [facility]. City: [place]. State: [place]. Lives w/ mom and step-father in [place], 2 cats. Unemployed since November 2016. Highest education level: bachelor's degree. Not in workforce. Not on disability. 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 Bachelor's degree in Welsh Literature at [employer]. Sex at : Male. Sexual orientation: Palacio. Gender identity: Male. Gender of partner(s): Male. Age of first sexual intercourse: 17. Sexually Active: No. Not sexually active. Angi Martinez " social history reviewed E&M reviewed today Angi Martinez " sexual orientation Palacio Angi Martinez " is there any chance that you could be ? No Angi Martinez " assessment of health literacy (COMMUNITY HEALTH 2014 Standards, 3C10) Adequate Angi Martinez " passive cigarette smoke exposure Yes Angi Martinez " smoking status current every day smoker Angi Martinez sexual orientation Palacio Alexandra Shun sexual orientation Palacio Jazmin Bullard Exercise Program Referral Mendez Monge " Weight Management Counseling Provided Mendez Monge " Nutrition intervention T Sandra Monge " social history E&M Single. Single. Parents when pt was age 16, mother and father both remarried. Relationship with father "I love him but don't like him... we talk on phone 1x a week". Relationship with mother and step-father "perfect and very good". One younger brother, "get along well, he is very busy though". Not homeless. Born in [facility]. City: [place]. State: [place]. Lives w/ mom and step-father in [place], cats. Unemployed since November 2016. Highest education level: bachelor's degree. Not in workforce. Not on disability. 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 Bachelor's degree in Welsh Literature at [employer]. Sex at : Male. Sexual orientation: Palacio. Gender identity: Male. Gender of partner(s): Male. Age of first sexual intercourse: 17. Sexually Active: No. Not sexually active. Sandra Monge " social history reviewed E&M reviewed today Sandra Monge " drug use, illicit Previously Michelle Hill " alcohol use Currently Michelleadam Hill " is there any chance that you could be ? No Michelel Sergio " assessment of health literacy (COMMUNITY HEALTH 2014 Standards, 3C10) Adequate Michelleadam Hill " passive cigarette smoke exposure Yes Michelle Hill " smoking status current every day smoker Michelle Sergio alcohol use Currently Elizabeth Kessler " drug use, illicit Previously Elizabeth Kessler " is there any chance that you could be ? No Elizabeth Kessler " sexual orientation Palacio Elizabeth Kessler " passive cigarette smoke exposure No Elizabeth Kessler " smoking status current every day smoker Elizabethnila Wolffley " assessment of health literacy (COMMUNITY HEALTH 2014 Standards, 3C10) Adequate Elizabeth Kessler " Exercise Program Referral T Elizabeth Kessler " Weight Management Counseling Provided T Elizabeth Kessler " Nutrition intervention T Elizabeth Kessler smoking status current every day smoker Buck Keatingjagdeep Exercise Program Referral T Sandra Monge " Weight Management Counseling Provided T Sandra Monge " Nutrition intervention T Sandra Monge " drug use, illicit Previously Michelle Hill " alcohol use Currently Michelleadam Hill " is there any chance that you could be ? No Michelle Sergio " passive cigarette smoke exposure No Michelle Sergio " smoking status current every day smoker Michelel Sergio " assessment of health literacy (COMMUNITY HEALTH 2014 Standards, 3C10) Adequate Michelle Sergio smoking status current every day smoker uBck Keatingjagdeep smoking status current every day smoker Buck Keatingjagdeep alcohol use, number maximum drinks per occasion 6 pack Buck Ledesma " alcohol use, frequency daily Buck Ledesma " alcohol use Currently Buck Ledesma " smoking status current every day smoker Buck Ledesma smoking, advice to quit Yes Sandra Monge " Exercise Program Referral T Sandra Monge " Weight Management Counseling Provided T Sandra Monge " Nutrition intervention T Sandra Monge " drug use, illicit Previously Deepika Valentinoierrez " alcohol use Currently Deepika Chen " social history E&M Single. Single. Parents when pt was age 16, mother and father both remarried. Relationship with father "I love him but don't like him... we talk on phone 1x a week". Relationship with mother and step-father "perfect and very good". One younger brother, "get along well, he is very busy though". Not homeless. Born in [facility]. City: [place]. State: [place]. Lives w/ mom and step-father in [place], 2 cats. Unemployed since November 2016. Highest education level: bachelor's degree. Not in workforce. Not on disability. 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 Bachelor's degree in Welsh Literature at [employer]. Sex at : Male. Sexual orientation: Palacio. Gender identity: Male. Gender of partner(s): Male. Age of first sexual intercourse: 17. Sexually Active: No. Not sexually active. Deepika Chen " social history reviewed E&M reviewed today Deepika Chen " sexual orientation Palacio Deepika Chen " passive cigarette smoke exposure No Deepika Chen " smoking status current every day smoker Deepika Gustavo " assessment of health literacy ([facility] 2014 Standards, 3C10) Adequate Deepika Chen Exercise Program Referral T Sandra Monge " Weight Management Counseling Provided T Sandra Monge " Nutrition intervention T Sandra Monge " social history E&M Single. Single. Parents when pt was age 16, mother and father both remarried. Relationship with father "I love him but don't like him... we talk on phone 1x a week". Relationship with mother and step-father "perfect and very good". One younger brother, "get along well, he is very busy though". Not homeless. Born in [facility]. City: [place]. State: [place]. Lives w/ mom and step-father in [place], 2 cats. Unemployed since November 2016. Highest education level: bachelor's degree. Not in workforce. Not on disability. 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 Bachelor's degree in Welsh Literature at [employer]. Sex at : Male. Sexual orientation: Palacio. Gender identity: Male. Gender of partner(s): Male. Age of first sexual intercourse: 17. Sexually Active: No. Not sexually active. Deepikabeatris Chen " social history reviewed E&M reviewed today Deepika Gustavo " drug use, illicit Previously Deepika Chen " alcohol use Currently Deepika Chen " sexual orientation Palacio Deepika Chen " passive cigarette smoke exposure No Deepika Chen " smoking, advice to quit Yes Deepikabeatris Chen " smoking status current every day smoker Deepika Valentinoierrez " assessment of health literacy (COMMUNITY HEALTH 2014 Standards, 3C10) Adequate Deepikabeatris Jessicarez Exercise Program Referral T Sandra Monge " Weight Management Counseling Provided Mendez Monge " Nutrition intervention T Sandra Monge " smoking, advice to quit Yes Sandra Monge " drug use, illicit Previously Deepika Jessicarez " alcohol use Currently Deepika Chen " social history E&M Single. Single. Parents when pt was age 16, mother and father both remarried. Relationship with father "I love him but don't like him... we talk on phone 1x a week". Relationship with mother and step-father "perfect and very good". One younger brother, "get along well, he is very busy though". Not homeless. Born in [facility]. City: [place]. State: [place]. Lives w/ mom and step-father in [place], 2 cats. Unemployed since November 2016. Highest education level: bachelor's degree. Not in workforce. Not on disability. 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 Bachelor's degree in [employer] Literature at [employer]. Sex at : Male. Sexual orientation: Palacio. Gender identity: Male. Gender of partner(s): Male. Age of first sexual intercourse: 17. Sexually Active: No. Not sexually active. Deepika Jessicarez " social history reviewed E&M reviewed today Deepika Valentinoierrez " sexual orientation Palacio Deepika Valentinoierrez " passive cigarette smoke exposure No Deepika Jessicarez " smoking status current every day smoker Deepika Jessicarez " assessment of health literacy (COMMUNITY HEALTH 2014 Standards, 3C10) Adequate Deepika Jessicarez social history reviewed E&M reviewed today Jasper Bobo " social history E&M Single. Single. Parents when pt was age 16, mother and father both remarried. Relationship with father "I love him but don't like him... we talk on phone 1x a week". Relationship with mother and step-father "perfect and very good". One younger brother, "get along well, he is very busy though". Not homeless. Born in [facility]. City: [place]. State: [place]. Lives w/ mom and step-father in [place], 2 cats. Unemployed since November 2016. Highest education level: bachelor's degree. Not in workforce. Not on disability. 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 Bachelor's degree in Welsh Literature at [employer]. Sex at : Male. Sexual orientation: Palacio. Gender identity: Male. Gender of partner(s): Male. Age of first sexual intercourse: 17. Sexually Active: No. Not sexually active. Jasper Bobo " drug use, illicit Previously Jasper Bobo" alcohol use, number maximum drinks per occasion 4-5 beers Jasper Bobo " alcohol use, frequency daily Jasper Bobo " alcohol use Currently Jasper Bobo " current cigarette packs per day 1-1.5 Jasper Bobo " smoking status current every day smoker Jasper Bobo " sexual orientation Palacio Jasper Bobo " sex at Male Jasper Bobo " Occupation #1 Unemployed Jasper Bobo " patient considered to be homeless No Jasper Bobo" social history - sexual practice Not sexually active. Jasper Bobo " family support Single. Parents when pt was age 16, mother and father both remarried. Relationship with father "I love him but don't like him... we talk on phone 1x a week". Relationship with mother and step-father "perfect and very good". One younger brother, "get along well, he is very busy though". Jasper Bobo " home/family situation, assessment Lives w/ mom and step-father in [place], 2 cats. Jasper Bobo " social history reviewed E&M reviewed today Sandra Monge " social history E&M Single. Spouse/Partner/Significant Other: n/a. Family is aware and supportive. Not homeless. Born in [facility]. City: [place]. State: [place]. Lives in [facility] [place] and stepdad in [place] in [facility]. Not employed. Highest education level: bachelor's degree. Not working at this time. Sex at : Male. Sexual orientation: Palacio. Gender identity: Male. Gender of partner(s): Male. Age of first sexual intercourse: 17 . Sexually Active: No. Not sexually active since he was diagnosed with HIV. Sandra Monge " social history - sexual practice Not sexually active since he was diagnosed with HIV. Sandra Monge " home/family situation, assessment Lives in [facility] [place] and stepdad in [place] in [facility]. Sandra Monge " family support Family is aware and supportive. Sandra Monge " smoking, advice to quit Yes Sandra Monge " assessment of health literacy (COMMUNITY HEALTH 2014 Standards, 3C10) Adequate Sandra Monge " Exercise Program Referral T Sandra Monge " Weight Management Counseling Provided T Sandra Monge " Nutrition intervention T Sandra Monge " drug use, illicit Previously Michelle Hill " alcohol use 4 to 5 beers a day Michelle Hill " sexual orientation Palacio Michelle Hill " sex at Male Michelle Hill " patient considered to be homeless No Michelle Hill " passive cigarette smoke exposure No Michelle Hill " cigarettes, number smoked per day 20 to 30 Michelle Hill " smoking status current every day smoker Michelle Hill " is there any chance that you could be ? No Michelle Hill FUNCTIONAL STATUS No Information Available MENTAL STATUS Date Observation Value Provider assessment of judgment and insight E&M intact Nela Schroeder " mental status examination: orientation E&M oriented to time, place, and person Nela Schroeder " assessment of mood and affect E&M no depression, anxiety, or agitation Nela Schroeder " Generalized Anxiety Disorder Questionnaire - Question 2 0 Dorothy Pineda " Generalized Anxiety Disorder Questionnaire - Question 1 0 Dorothy Pineda assessment of judgment and insight E&M intact Rinal Recinos " mental status examination: orientation E&M oriented to time, place, and person Rinal Recinos " assessment of mood and affect E&M no depression, anxiety, or agitation Rinal Recinos " Generalized Anxiety Disorder Questionnaire - Question 2 0 Cliff Jackson " Generalized Anxiety Disorder Questionnaire - Question 1 0 Cliff Jackson assessment of judgment and insight E&M intact Nela Shrikanth " mental status examination: orientation E&M oriented to time, place, and person Nela Shrikanth " assessment of mood and affect E&M no depression, anxiety, or agitation Nela Shrikanth " Generalized Anxiety Disorder Questionnaire - Question 2 0 Kari Crawford " Generalized Anxiety Disorder Questionnaire - Question 1 0 Krai Crawford assessment of judgment and insight E&M intact Rinal Recinos " mental status examination: orientation E&M oriented to time, place, and person Rinal Recinos " assessment of mood and affect E&M no depression, anxiety, or agitation Rinal Recinos " Generalized Anxiety Disorder Questionnaire - Question 2 0 Cliff Jackson " Generalized Anxiety Disorder Questionnaire - Question 1 0 Cliff Jackson assessment of mood and affect E&M good eye contact, normal affect Sandra Mariposa " Generalized Anxiety Disorder Questionnaire - Question 2 0 Angi Martinez " Generalized Anxiety Disorder Questionnaire - Question 1 0 Angi Martinez assessment of judgment and insight E&M intact Sandra Mariposa " mental status examination: orientation E&M alert and oriented to person, place, and time Sandra Mariposa " assessment of mood and affect E&M good eye contact, normal affect Sandra Mariposa " Generalized Anxiety Disorder Questionnaire - Question 2 0 Angi Hessrod " Generalized Anxiety Disorder Questionnaire - Question 1 0 Angi Hessrod assessment of mood and affect E&M good eye contact, normal affect Edgard S Martin " mental status examination: orientation E&M alert and oriented to person, place, and time Edgard S Martin assessment of judgment and insight E&M intact Sandra Mariposa " mental status examination: orientation E&M oriented to time, place, and person Sandra Mariposa " assessment of mood and affect E&M no depression, anxiety, or agitation Sanrda Mariposa " Generalized Anxiety Disorder Questionnaire - Question 2 0 Michelle Hill " Generalized Anxiety Disorder Questionnaire - Question 1 0 Michelle Hill assessment of judgment and insight E&M intact Sandra Donovanek " mental status examination: orientation E&M oriented to time, place, and person Sandra Mariposa " assessment of mood and affect E&M no depression, anxiety, or agitation Sandra Mariposa " Generalized Anxiety Disorder Questionnaire - Question 2 0 Elizabeth Kessler " Generalized Anxiety Disorder Questionnaire - Question 1 0 Elizabeth Kessler mental status assessment, judgment fair Buck Ledesma " insight (mental status exam) fair Maryan Bulmaroijagdeep " Mental Status Exam: intelligence adequate fund of information, intact memory processes, oriented to person, oriented to place, oriented to time, oriented to situation, oriented to reality Buck Ledesma " hallucinations none Garettmaritza Ledesma " thought content (mental status exam) (E&M) lucid Buck Ledesma " mental status assessment, process able to abstract, goal-directed, logical Buck Chamberlainiudzenon " mental status assessment, sensorium alert, attentive, clear Buck Chamberlainiudzenon " affect (mental status exam) congruent, euthymic, normal intensity, normal range Maryan Bulmaroiuddin " mood (mental status exam) pleasant Maryan Bulmaroiuddin " mental status assessment, speech activity normal flow, normal pace, normal pressure, normal rate, normal tone, normal volume, spontaneous, loud Buck Chamberlainiuddin " mental status assessment, motor activity normal gait, normal posture Buck Ledesma " behavior (mental status exam) appropriate, candid, cooperative, good eye contact, polite, responsive Buck Chamberlainijagdeep " mental appearance (mental status exam) adequate hygiene, appropriate dress, looks like stated age, neat Buck Ledesma assessment of judgment and insight E&M intact Sandra Donovanek " mental status examination: orientation E&M oriented to time, place, and person Sandra Mariposa " assessment of mood and affect E&M no depression, anxiety, or agitation Sandra Monge " Generalized Anxiety Disorder Questionnaire - Question 2 0 Michelle Hill " Generalized Anxiety Disorder Questionnaire - Question 1 0 Michelle Hill mental status assessment, judgment fair Zishan Samiuddin " insight (mental status exam) fair Zishan Samiuddin " Mental Status Exam: intelligence adequate fund of information, intact memory processes, oriented to person, oriented to place, oriented to time, oriented to situation, oriented to reality Zishan Samiuddin " hallucinations none Zishan Samiuddin " thought content (mental status exam) (E&M) lucid Zishan Samiuddin " mental status assessment, process able to abstract, goal-directed, logical Zishan Samiuddin " mental status assessment, sensorium alert, attentive, clear Zishan Samiuddin " affect (mental status exam) congruent, euthymic, normal intensity, normal range Zishan Samiuddin " mood (mental status exam) pleasant Zishan Samiuddin " mental status assessment, speech activity normal flow, normal pace, normal pressure, normal rate, normal tone, normal volume, spontaneous, loud Zishan Samiuddin " mental status assessment, motor activity normal gait, normal posture Zishan Samiuddin " behavior (mental status exam) appropriate, candid, cooperative, good eye contact, polite, responsive Zishan Samiuddin " mental appearance (mental status exam) adequate hygiene, appropriate dress, looks like stated age, neat Garettshan Samiuddin mental status assessment, judgment fair Zishan Samiuddin " insight (mental status exam) fair Zishan Samiuddin " Mental Status Exam: intelligence adequate fund of information, intact memory processes, oriented to person, oriented to place, oriented to time, oriented to situation, oriented to reality Zishan Samiuddin " hallucinations none Zishan Samiuddin " thought content (mental status exam) (E&M) lucid Zishan Samiuddin " mental status assessment, process able to abstract, goal-directed, logical Zishan Samiuddin " mental status assessment, sensorium alert, attentive, clear Zishan Samiuddin " affect (mental status exam) congruent, euthymic, normal intensity, normal range Zishan Samiuddin " mood (mental status exam) pleasant Zishan Samiuddin " mental status assessment, speech activity normal flow, normal pace, normal pressure, normal rate, normal tone, normal volume, spontaneous, loud Zishan Samiuddin " mental status assessment, motor activity normal gait, normal posture Zishan Samiuddin " behavior (mental status exam) appropriate, candid, cooperative, good eye contact, polite, responsive Zishan Samiuddin " mental appearance (mental status exam) adequate hygiene, appropriate dress, looks like stated age, neat Buck Chamberlainiudzenon mood (mental status exam) pleasant Zishan Samiuddin " anxiety worry a lot, sleep disturbance Zishan Samiuddin " mental status assessment, judgment fair Zishan Samiuddin " insight (mental status exam) fair Zishan Samiuddin " Mental Status Exam: intelligence adequate fund of information, intact memory processes, oriented to person, oriented to place, oriented to time, oriented to situation, oriented to reality Garettshan Bulmaroiuddin " hallucinations none [facility] " thought content (mental status exam) (E&M) lucid Maryan Bulmaroiudzenon " mental status assessment, process able to abstract, goal-directed, logical [facility] " mental status assessment, sensorium alert, attentive, clear shan Samiuddin " affect (mental status exam) congruent, euthymic, normal intensity, normal range Garettshan Samiuddin " mental status assessment, speech activity normal flow, normal pace, normal pressure, normal rate, normal tone, normal volume, spontaneous, loud Zishan Samiuddin " mental status assessment, motor activity normal gait, normal posture Zian Bulmaroiuddin " behavior (mental status exam) appropriate, candid, cooperative, good eye contact, polite, responsive Zishan Samiuddin " mental appearance (mental status exam) adequate hygiene, appropriate dress, looks like stated age, neat Buck Chamberlainiudzenon assessment of judgment and insight E&M intact Sandra Monge " mental status examination: orientation E&M oriented to time, place, and person Sandra Monge " assessment of mood and affect E&M no depression, anxiety, or agitation Sandra Monge " Generalized Anxiety Disorder Questionnaire - Question 2 0 Deepika Chen " Generalized Anxiety Disorder Questionnaire - Question 1 0 Deepika Chen Generalized Anxiety Disorder Questionnaire - Question 2 0 Deepika Chen " Generalized Anxiety Disorder Questionnaire - Question 1 0 Deepika Chen assessment of judgment and insight E&M intact Sandra Monge " mental status examination: orientation E&M oriented to time, place, and person Sandrakaylen Monge " assessment of mood and affect E&M no depression, anxiety, or agitation Sandra Monge " Generalized Anxiety Disorder Questionnaire - Question 2 0 Deepika Chen " Generalized Anxiety Disorder Questionnaire - Question 1 0 Deepika Chen delusion No Jasper Bobo" mental status assessment, judgment fair Jasper Bobo" insight (mental status exam) fair Jasper Bobo" Mental Status Exam: intelligence adequate fund of information, intact memory processes, oriented to person, oriented to place, oriented to time, oriented to situation, oriented to reality Jasper Bobo" hallucinations none Jasper Bobo" thought content (mental status exam) (E&M) lucid Jasper Bobo" mental status assessment, process able to abstract, logical, circumstantial Jasper Bobo" mental status assessment, sensorium alert, attentive, clear Jasper Bobo" affect (mental status exam) congruent, normal intensity, normal range Jasper Bobo" mood (mental status exam) happy Jasper Bobo" mental status assessment, speech activity normal flow, normal pace, normal pressure, normal rate, normal tone, normal volume, spontaneous, loud Jasper Bobo" mental status assessment, motor activity normal gait, normal posture Jasper Bobo" behavior (mental status exam) appropriate, candid, cooperative, good eye contact, responsive Jasper Bobo" mental appearance (mental status exam) adequate hygiene, appropriate dress, looks like stated age, neat Jasper Bobo Generalized Anxiety Disorder Questionnaire - Question 2 0 Michelle Hill " Generalized Anxiety Disorder Questionnaire - Question 1 0 Michelle Hill MEDICAL EQUIPMENT No Information Available FAMILY HISTORY No Information Available INSURANCE PROVIDERS Payer name Policy type / Coverage type Covered democrat ID *Jasper White 0-100% Other [id number] Sliding Fee - Cat 1 [employer] insurance [employer] [id number] *Jasper White 0-100% Other Sliding Fee - [employer] insurance company *Jasper White 0-100% Other [id number] *Jasper White 0-100% Other Sliding Fee - Cat 1 [employer] insurance [employer] [id number] *Jasper White 0-100% Other [id number] ADVANCE DIRECTIVES Name Date DISCUSSED - NO DECISION MADE TREATMENT PLAN Date Name [employer] PRIme(SM) RNA, Real Time PCR (Graph) Comp. Metabolic Panel (14) Vitamin D, 25-Hydroxy Comp. Metabolic Panel (14) PTH, Intact Calcium, 24hr Urine Creatinine, 24-Hour Urine PTH, Intact Comp. Metabolic Panel (14) RNA, Real Time PCR (Graph) RNA, Real Time PCR (Graph) Comp. Metabolic Panel (14) CD4/CD8 Ratio Profile RNA, Real Time PCR (Graph) Creatinine, 24-Hour Urine Calcium, 24hr Urine Vitamin D, 25-Hydroxy Comp. Metabolic Panel (14) Lipid Panel Protein Elec + Interp, Serum PTH, Intact PTHRP (PTH Related Peptide) Magnesium, Serum Phosphorus, Serum Comp. Metabolic Panel (14) Vitamin D, 25-Hydroxy Calcium, 24hr Urine Creatinine, 24-Hour Urine Urine Potassium, Chloride, Sodium Osmolality, Urine Osmolality HCV RNA by PCR, Qn Rfx Damaris HCV Antibody HBsAg Screen Hep B Surface Ab Hep B Core Ab, Tot Hep A Ab, Total Comp. Metabolic Panel (14) Creatinine, Urine Sodium, Urine Urinalysis, Routine PTH, Intact Calcium, Ionized, Serum Lipid Panel Comp. Metabolic Panel (14) Vitamin D, 25-Hydroxy RPR, Rfx Qn RPR/Confirm TP Comp. Metabolic Panel (14) CBC With Differential/Platelet CD4/CD8 Ratio Profile Lipid Panel RNA, Real Time PCR (Graph) Vitamin D, 25-Hydroxy RPR, Rfx Qn RPR/Confirm TP Comp. Metabolic Panel (14) CBC With Differential/Platelet CD4/CD8 Ratio Profile Lipid Panel RNA, Real Time PCR (Graph) RPR, Rfx Qn RPR/Confirm TP Comp. Metabolic Panel (14) CBC With Differential/Platelet CD4/CD8 Ratio Profile Lipid Panel RNA, Real Time PCR (Graph) Vitamin D, 25-Hydroxy RPR, Rfx Qn RPR/Confirm TP Comp. Metabolic Panel (14) CBC With Differential/Platelet CD4/CD8 Ratio Profile Lipid Panel RNA, Real Time PCR (Graph) RPR, Rfx Qn RPR/Confirm TP Comp. Metabolic Panel (14) CBC With Differential/Platelet CD4/CD8 Ratio Profile Lipid Panel RNA, Real Time PCR (Graph) Comp. Metabolic Panel (14) Vitamin D, 25-Hydroxy RPR, Rfx Qn RPR/Confirm TP Comp. Metabolic Panel (14) CBC With Differential/Platelet CD4/CD8 Ratio Profile Lipid Panel RNA, Real Time PCR (Graph) HIV- GS Archive QuantiFERON TB Gold (In Tube) Sedimentation Rate-Westergren C-Reactive Protein, Quant Vitamin B12 and Folate Rheumatoid Arthritis Factor Vitamin D, 25-Hydroxy Toxoplasma gondii Ab, IgG, Qn RPR RNA, Real Time PCR (Graph) Lipid Panel HLA [id number] Test HIV 1/2 ANTIGEN/ANTIBODY, FOURTH GENERATION W/RFL HCV Antibody HBsAg Screen Hep B Surface Ab Hep B Core Ab, Tot Hep A Ab, Total Comp. Metabolic Panel (14) Chlamydia/GC Amplification CBC With Differential/Platelet CD4/CD8 Ratio Profile - - - - hypercalcemia - - Est Patient Exp Problem - 74162 Ofc Vst, Est Level III Est Patient Detailed - 29084 First Vx - Ix admin via ID IM or jet injects without counseling by physician Menactra Intramuscular Injectable Vision Vaccines Ordered - Print Consent/Declination Forms Ofc Vst, Est Level IV Xray - Chest - 2 Views - InHouse Handling of specimen for transfer Venipuncture Est Patient Detailed - 31587 Dispensing Visit (UNLIVSTED OPHTHALMOLOGICAL SERVICE/PROCEDURE) INFLUENZA VACCINE QUADRIVALENT 3 YRS PLUS IM Pneumovax Vaccine PPSV23 Admin of Vaccine - Injection - Each Add'l Admin of Vaccine - Injection - 1 Est Patient Detailed - 39037 Progressive lens, per lens Frames, purchases Est Patient Comprehensive Opth - 06287 New Patient Intermediate Opth - 95847 Est Patient Detailed - 98337 Est Patient Detailed - 60031 Est Patient Detailed - 38116 Est Patient Detailed - 80258 Est Patient Exp Problem - 66471 Est Patient Detailed - 74113 Diagnostic evaluation with medical - 21592 INFLUENZA VACCINE QUADRIVALENT 3 YRS PLUS IM Admin of Vaccine - Injection - 1 Est Patient Detailed - 47000 Est Patient Detailed - 13254 Prevnar (PCV13) IM TDAP Admin of Vaccine - Injection - Each Add'l Admin of Vaccine - Injection - 1 Est Patient Well Exam (40 - 64 Yrs) - 94870 Primary Care Service [facility] - Psychiatry Diagnostic evaluation (no medical) - 51287 IB Assessment - BH Associate Pathologist Primary Care Service Linkage Xray - Chest - PA & Lat - InHouse Primary Care Service Linkage Handling of specimen for transfer Venipuncture Integrated Behavioral Health Assessment (IBH) New Patient Well Exam (40 - 64 Yrs) - 09668 Handling of specimen for transfer Venipuncture HISTORY OF PROCEDURES Procedure Date Procedure Name Provider Procedure Notes Status First Vx - Ix admin via ID IM or jet injects without counseling by physician Nela Schroeder completed Menactra Intramuscular Injectable Nela Schroeder completed Vaccines Ordered - Print Consent/Declination Forms Nela Schroeder completed Venipuncture Sandra Monge completed Dispensing Visit (UNLIVSTED OPHTHALMOLOGICAL SERVICE/PROCEDURE) Jazmin Bullard completed Progressive lens, per lens Jazmin Bullard completed Frames, purchases Jazmin Bullard Frame #[id number] (Pd 60.00) completed Est Patient Comprehensive Opt - 77970 Edgard Nohemi Martin completed New Patient Intermediate Opt - 26719 Chriss Martin completed Diagnostic evaluation with medical - 50306 Buck Ledesma completed Primary Care Service [facility] Maximus Yancey Time spent with patient: 30 completed Diagnostic evaluation (no medical) - 42518 Jasper Bobo completed [facility] Assessment - Associate Pathologist Jasper Bobo completed Primary Care Service Linkage Maximus Yancey Time spent with patient: 30 completed Primary Care Service Linkage Maximus Yancey Time spent with patient: 30 completed Venipuncture Sandra Monge completed Venipuncture Sandra Monge completed GOALS No Information Available [facility] No Information Available
[2019-09-05] MEDS ORDERED: BACTRIM DS TAB1 EACH PO (21:24)
[2019-09-05] MEDS ORDERED: NAPROSYN500 MG PO (21:24)
[2019-09-05] MEDS ORDERED: ULTRAM50 MG PO (21:24)
== END 2019-09-05 21:49 | disposition home or self-care (01) ==
LOC: FSED 20:43
DX: L02.413 Cutaneous abscess of right upper limb (principal); I10 Essential (primary) hypertension; J44.9 Chronic obstructive pulmonary disease, unspecified; B20 Human immunodeficiency virus [HIV] disease
CPT/HCPCS: 87071; 87205; 99283

== ENCOUNTER 2020-02-03 02:16 | Emergency (ER) | payer SELFPAY ==
[~2020-02-03] VITALS: Ht 182.9 cm; Wt 61.2 kg
[~2020-02-03 02:16] MED LIST: BACTRIM DS TAB1 EACH PO; NAPROSYN500 MG PO; ULTRAM50 MG PO
--- OUTSIDE RECORDS SUMMARY | 2020-02-03 02:21 | XMS REPORT ---
Author Author Admin, [place] Organization Unknown Address Unknown Phone Unavailable PROBLEMS Condition Status Date Provider Notes Abscess, axilla, right active Nela Shrikanth Hepatitis B immunity active Nela Shrikanth Hepatitis A immunity active Nela Shrikanth HIV infection active Nela Shrikanth Osteopenia active Sandra Monge Increased transaminase level active Sandra Monge Hypercalcemia completed - Nela Shrikanth Hyperkalemia completed - Nela Hancockikabethanyh Hyponatremia completed - Nela Shrikanth Immunization update active Sandra Monge Onychomycosis, toenails active Sandra Monge SPECIAL SCREENING EXAMINATION OTH SPEC VIRAL DZ completed - Edgard Martin Presbyopia - OU active Chriss Martin Regular astigmatism, bilateral active Chriss Martin Myopia - OU active Chriss Martin Hx Bronchitis acute with bronchospasm completed - Nela Santiikanth Hypertriglyceridemia active Sandra Monge Flu shot completed - Nela Shrikanth BMI < 20 active Sandra Monge Vitamin D deficiency active Sandra Monge Immunization update completed - Nela Blackh Hx Latent tuberculosis, s/p INH/B6 active Sandra Monge Stop date 03/16/18 COPD active Sandra Monge seen on CXR TOBACCO USE DISORDER, MODERATE active Jasper Bobo ALCOHOL USE DISORDER, MODERATE active Jasper Bobo DEPRESSIVE DISORDER, OTHER SPECIFIED active Jasper Bobo Screening for hypercholesterolemia completed - Nela Schroeder ENCOUNTERS Date Type Provider Location Encounter Diagnosis - Ambulatory Encounter Nela Canasnth [facility] LM Adult Medicine UNK - Ambulatory Encounter Nela Blackh LM Adult Medicine UNK - Ambulatory Encounter Nela Schroeder Dylon Walker LM Adult Medicine Abscess, axilla, right - Ambulatory Encounter Sandra Lanza [facility], LM Adult Medicine UNK - Ambulatory Encounter Dorothy Alberts [facility] Contact Center UNK - Ambulatory Encounter Isi Bliss [facility] Contact Center UNK - Ambulatory Encounter Buck Arringtons Isi Isbell [facility] Contact Center UNK - Ambulatory Encounter Nela Blackh [facility] LM Adult Medicine UNK - Ambulatory Encounter Nelairina Canasnth [facility] LM Adult Medicine UNK - Ambulatory Encounter Nelairina Blackh [facility] Adult Medicine UNK - Ambulatory Encounter Nelairina Pineda LM Adult Medicine Screening for hypercholesterolemiaImmunization updateFlu shotHx Bronchitis acute with bronchospasmHyponatremiaHyperkalemiaHypercalcemia - Ambulatory Encounter Jeromy Recinos LM Adult Medicine UNK - Ambulatory Encounter Jeromy Recinos Cliff Jackson LM Adult Medicine UNK - Ambulatory Encounter Jeromy Recinos [facility] LM Adult Medicine UNK - Ambulatory Encounter Mare Carbajal [facility] Adult Medicine UNK - Ambulatory Encounter Dorothy Nash [facility] Contact Center UNK - Ambulatory Encounter Jeromy Recinos [facility] Adult Medicine UNK - Ambulatory Encounter Cliff Arnold [facility] Adult Medicine UNK - Ambulatory Encounter Nela Schroeder [facility] Adult Medicine UNK - Ambulatory Encounter Nela Schroeder [facility] Adult Medicine UNK - Ambulatory Encounter Dorothy Javed [facility] Contact Center UNK - Ambulatory Encounter Nela Schroeder [facility] Adult Medicine UNK - Ambulatory Encounter Martha Stallworth [facility] Public Health Services UNK - Ambulatory Encounter Nela Schroeder [facility] Adult Medicine UNK - Ambulatory Encounter Nela GarciaSimons [facility] Adult Medicine HIV infectionHepatitis A immunityHepatitis B immunity - Ambulatory Encounter Cliff [facility] UNK - Ambulatory Encounter Mare Raven LM Adult Medicine UNK - Ambulatory Encounter Rinal Recinos Bethanyjaswant Manuel Napier LM Adult Medicine UNK - Ambulatory Encounter Trenasofia Pinzon Recinos [facility] Adult Medicine UNK - Ambulatory Encounter Rinal Recinos [facility] Adult Medicine UNK - Ambulatory Encounter Rinal Recinos [facility] Adult Medicine UNK - Ambulatory Encounter Jazlyn Nash [facility] Adult Medicine UNK - Ambulatory Encounter Rinal Recinos [facility] Adult Medicine UNK - Ambulatory Encounter Rinal Recinos [facility] Adult Medicine UNK - Ambulatory Encounter Rinal Recinos [facility] Adult Medicine UNK - Ambulatory Encounter Sandra Monge LM Adult Medicine UNK - Ambulatory Encounter Sandra Monge [facility] Adult Medicine Osteopenia - Ambulatory Encounter Cliff Jackson LM Adult Medicine UNK - Ambulatory Encounter Rinal Recinos [facility] Adult Medicine UNK - Ambulatory Encounter Rinal Recinos Bethanyjaswant Manuel [facility] Adult Medicine UNK - Ambulatory Encounter Cliff Jackson [facility] Adult Medicine UNK - Ambulatory Encounter Cliff Jackson [facility] LM Adult Medicine UNK - Ambulatory Encounter Sandra Monge [facility] Rinal Recinos [facility] Adult Medicine UNK - Ambulatory Encounter Sandra Monge [facility] Meghnacody Arnold [facility] Adult Medicine UNK - Ambulatory Encounter Fax Status [facility] UNK - Ambulatory Encounter [facility] - [facility]ulatory En[facility] - [facility] Encounter Mare Murillo [facility] Adult Medicine UNK - Ambulatory Encounter Jeromy Recinos Link[facility] Carbajal [facility] Adult Medicine UNK - Ambulatory Encounter Jeromy Recinos [facility] Adult Medicine UNK - Ambulatory Encounter Meghna Nash [facility] Adult Medicine UNK - Ambulatory Encounter [facility] - Ambulatory Encounter Fax Status [facility] Services UNK - Ambulatory Encounter Sandra Monge [facility] Adult Medicine UNK - Ambulatory Encounter Sandra Nash [facility] Adult Medicine UNK - Ambulatory Encounter Lashaun Monge [facility] UNK - Ambulatory Encounter Sandra Monge [facility] Adult Medicine UNK - Ambulatory Encounter Jeromy Recinos [facility] Adult Medicine UNK - Ambulatory Encounter Rinal Jorje Jackson [facility] Adult Medicine UNK - Ambulatory Encounter Cliff Jackosn [facility] Adult Medicine UNK - Ambulatory Encounter Meghna Nash [facility] Adult Medicine UNK - Ambulatory Encounter Cliff Jackson [facility] Adult Medicine UNK - Ambulatory Encounter [facility] - Ambulatory Encounter Fax Status [facility] UNK - Ambulatory Encounter Sandra GoldsteinLogic [facility] Adult Medicine UNK - Ambulatory Encounter Sandra Monge [facility] Adult Medicine UNK - Ambulatory Encounter Sandra Rubily Charity Quiles [facility] Adult Medicine Increased transaminase level - Ambulatory Encounter Sandra Monge [facility] Adult Medicine UNK - Ambulatory Encounter Sandra Mcgowan [facility] Adult Medicine UNK - Ambulatory Encounter Sandra Monge [facility] Adult Medicine UNK - Ambulatory Encounter Sandra Monge [facility] Adult Medicine UNK - Ambulatory Encounter Sandra Martinez [facility] Adult Medicine Hx Bronchitis acute with bronchospasmHyponatremiaHyperkalemiaHypercalcemia - Ambulatory Encounter Sandra Lanza [facility], [facility] Adult Medicine UNK - Ambulatory Encounter Sandra Lanza [facility], [facility] Adult Medicine UNK - Ambulatory Encounter Cliff Jackson [facility] Adult Medicine UNK - Ambulatory Encounter Sandra Monge [facility] Adult Medicine UNK - Ambulatory Encounter Sandra Kowalski Cliff Jackson [facility] Adult Medicine UNK - Ambulatory Encounter Sandra Lanza [facility], [facility] Adult Medicine UNK - Ambulatory Encounter Sandra Lanza [facility], [facility] Adult Medicine UNK - Ambulatory Encounter Boni Cristina [facility] Public Health Services UNK - Ambulatory Encounter Jazmin Bullard [facility] UNK - Ambulatory Encounter Jazmin Bullard [facility] UNK - Ambulatory Encounter Sandra GoldsteinLogkendrick [facility] Adult Medicine UNK - Ambulatory Encounter Sandra GoldsteinLogic [facility] Adult Medicine UNK - Ambulatory Encounter Sandra Monge [facility] Adult Medicine UNK - Ambulatory Encounter Sandra Martinez [facility] Adult Medicine Onychomycosis, toenailsImmunization update - Ambulatory Encounter Jazmin Bullard [facility] UNK - Ambulatory Encounter Edgard Martin [facility] UNK - Ambulatory Encounter Edgard Martin [facility] UNK - Ambulatory Encounter Edgard Hoffmann [facility] SPECIAL SCREENING EXAMINATION OTH SPEC VIRAL DZ - Ambulatory Encounter Chriss Martin [facility] UNK - Ambulatory Encounter Chriss Martin [facility] UNK - Ambulatory Encounter Chriss Martin [facility] UNK - Ambulatory Encounter Chriss Bullard [facility] Vision Myopia - OURegular astigmatism, bilateralPresbyopia - OU - Ambulatory Encounter Sandra Kowalski [facility] Adult Medicine UNK - Ambulatory Encounter Sandra Vargas [facility] Adult Medicine UNK - Ambulatory Encounter Sandra Vargas [facility] Adult Medicine UNK - Ambulatory Encounter Sandra Yancey [facility] Adult Medicine UNK - Ambulatory Encounter Sandra Lazna [facility], [facility] Adult Medicine UNK - Ambulatory Encounter Sandra Lanza [facility], [facility] Adult Medicine UNK - Ambulatory Encounter Sandra Lanza [facility], [facility] Adult Medicine UNK - Ambulatory Encounter Sandra Lanza [facility], [facility] Adult Medicine UNK - Ambulatory Encounter Sandra Lanza [facility], [facility] Adult Medicine UNK - Ambulatory Encounter Sandra Lanza [facility], [facility] Adult Medicine UNK - Ambulatory Encounter Khloe Mckeon [facility] UNK - Ambulatory Encounter Khloe Lee [facility] UNK - Ambulatory Encounter Amaury Nath [facility] Adult Medicine UNK - Ambulatory Encounter Amaury Nath [facility] Adult Medicine UNK - Ambulatory Encounter Sandra Monge LM Adult Medicine UNK - Ambulatory Encounter Sandra Monge LM Adult Medicine UNK - Ambulatory Encounter Sandra Hill [facility] Adult Medicine Hx Latent tuberculosis, s/p INH/B6Hx Bronchitis acute with bronchospasm - Ambulatory Encounter Buck Ledesma [facility] UNK - Ambulatory Encounter Buck Ledesma [facility] UNK - Ambulatory Encounter Sandra Vargas [facility] Adult Medicine UNK - Ambulatory Encounter Sandra GoldsteinLogkendrick Vargas [facility] Adult Medicine UNK - Ambulatory Encounter Sandra Bush [facility] Services UNK - Ambulatory Encounter Buck Ledesma [facility] UNK - Ambulatory Encounter Buck Ledesma [facility] UNK - Ambulatory Encounter Buck Solares [facility] Center UNK - Ambulatory Encounter Sandra Castro [facility] UNK - Ambulatory Encounter Sandra Monge [facility] Leny Nicol Castro [facility] Adult Medicine UNK - Ambulatory Encounter Sandra Monge LM Adult Medicine UNK - Ambulatory Encounter Sandra Monge LM Adult Medicine UNK - Ambulatory Encounter Sandra Kessler [facility] Adult Medicine UNK - Ambulatory Encounter Sandra Monge LM Adult Medicine UNK - Ambulatory Encounter Sandra Monge [facility] Adult Medicine UNK - Ambulatory Encounter Nancy [facility] Services UNK - Ambulatory Encounter Khloe Jesus [facility] UNK - Ambulatory Encounter Nancy Jones [facility] Adult Medicine UNK - Ambulatory Encounter Buck Burris [facility] UNK - Ambulatory Encounter Sandra Monge [facility] Adult Medicine UNK - Ambulatory Encounter Sandra Hill [facility] Adult Medicine Hx Latent tuberculosis, s/p INH/A3Mngsikdjjmkykbmcolna - Ambulatory Encounter Sandra Monge [facility] Adult Medicine UNK - Ambulatory Encounter Sandra Boss [facility] Adult Medicine UNK - Ambulatory Encounter Buck Clarke [facility] UNK - Ambulatory Encounter Buck Ledesma [facility] UNK - Ambulatory Encounter Buck GoldsteinLogic [facility] UNK - Ambulatory Encounter Sandra Monge [facility] Adult Medicine UNK - Ambulatory Encounter Buck Villeda [facility] UNK - Ambulatory Encounter Buck Burris [facility] UNK - Ambulatory Encounter Lashaun Mckeon [facility] UNK - Ambulatory Encounter [facility] UNK - Ambulatory Encounter Buck Ledesma [facility] UNK - Ambulatory Encounter Garetteamon Bliss [facility] UNK - Ambulatory Encounter Sandra GoldsteinLogic [facility] Adult Medicine UNK - Ambulatory Encounter Sandra Monge [facility] Adult Medicine UNK - Ambulatory Encounter Sandra Chen [facility] Adult Medicine Flu shot - Ambulatory Encounter Sandra GoldsteinLogkendrick [facility] Adult Medicine UNK - Ambulatory Encounter Sandra Chen [facility] Adult Medicine UNK - Ambulatory Encounter Sandra Monge [facility] Adult Medicine UNK - Ambulatory Encounter Sandra Chen [facility] Adult Medicine BMI < 20 - Ambulatory Encounter Sandra GoldsteinLogkendrick [facility] Adult Medicine UNK - Ambulatory Encounter Sandra Monge [facility] Services UNK - Ambulatory Encounter Sandra Monge [facility] Adult Medicine UNK - Ambulatory Encounter Sandra Chen [facility] Adult Medicine Immunization updateVitamin D deficiency - Ambulatory Encounter Sandra Monge [facility] Services UNK - Ambulatory Encounter Jason Gilliam [facility] UNK - Ambulatory Encounter Sandra Hill [facility] Adult Medicine UNK - Ambulatory Encounter LM Care Coordination Lori Hill [facility] UNK - Ambulatory Encounter Sandra Monge [facility] Adult Medicine COPDHx Latent tuberculosis, s/p INH/B6 - Ambulatory Encounter Sandra Kowalski [facility] Adult Medicine UNK - Ambulatory Encounter Maximus Yancey [facility] [employer] Production Manager UNK - Ambulatory Encounter Maximus Yancey [facility] Reproduction Production Manager UNK - Ambulatory Encounter Jason Nath [facility] UNK - Ambulatory Encounter Sandra Kowalski [facility] Adult Medicine UNK - Ambulatory Encounter Maximus Yancey [facility] Reproduction Production Manager UNK - Ambulatory Encounter Sandra Mcgowan [facility] Adult Medicine UNK - Ambulatory Encounter Maximus Yancey [facility] Reproduction Production Manager UNK - Ambulatory Encounter Sandra Monge [facility] Adult Medicine UNK - Ambulatory Encounter Jasper Keller [facility] DEPRESSIVE DISORDER, OTHER SPECIFIEDALCOHOL USE DISORDER, MODERATETOBACCO USE DISORDER, MODERATE - Ambulatory Encounter Sandra Jamison [facility] Adult Medicine - Ambulatory Encounter Sandra GoldsteinLogkendrick [facility] Adult Medicine UNK - Ambulatory Encounter Sandra Day [facility] Adult Medicine Screening for hypercholesterolemia - Ambulatory Encounter Adrian Cristina [facility] Public Health Services UNK - Ambulatory Encounter Sandra Monge [facility] C [facility] UNK VITAL SIGNS No Information Available Allergies No Known Allergy Information REASON FOR REFERRAL No Information Available RESULTS Date Observation Value Provider Reference Range Interpretation Location HIV-1RNA, serum, by PCR, quantitative <20 copies/mL [facility] " alanine aminotransferase (SGPT), serum 21 1/L [facility] 0-44 " aspartate aminotransferase (SGOT), serum 39 1/L [facility] 0-40 " alkaline phosphatase, serum 60 1/L [facility] 39-117 " bilirubin, serum, total 0.2 mg/dL [facility] 0.0-1.2 " albumin/globulin ratio, serum 1.7 [facility] 1.2-2.2 " globulin, serum 2.7 [facility] 1.5-4.5 " albumin, serum 4.6 g/dL [facility] 3.5-5.5 " protein, total, serum 7.3 g/dL [facility] 6.0-8.5 " calcium, serum 10.5 mg/dL [facility] 8.7-10.2 High " carbon dioxide, venous blood 24 mmol/L [facility] 20-29 " chloride, serum 95 mmol/L [facility] 96-106 Low " potassium, serum 5.4 mmol/L [facility] 3.5-5.2 High " sodium, serum 136 mmol/L [facility] 134-144 " urea nitrogen/creatinine ratio, serum 13 [facility] 9-20 " eGFR if 65 mL/min/((173/100).m2) [facility] >59 " Estimated Glomerular Filtration Rate (calc) 56 mL/min/((173/100).m2) [facility] >59 Low " creatinine, serum 1.49 mg/dL [facility] 0.76-1.27 High " urea nitrogen, blood 19 mg/dL [facility] 6-24 " blood glucose, random 58 mg/dL [facility] 65-99 Low alanine aminotransferase (SGPT), serum 26 1/L [facility] [...] creatinine, urine, 24 hour 2076 mg/24h [facility] [id number] High " creatinine, random, urine 38.1 mg/dL [...] creatinine, urine, 24 hour 1562 mg/24h [facility] [id number] " creatinine, random, urine 25.4 mg/dL [facility] [...] [facility] [id number] HIV genotype result done Sandra Mariposa Non-nucleotide Reverse Transcriptase Inhibitors none Sandra Mariposa " Nucleotide Reverse transcriptase inhibitor none Sandra Mariposa c-reactive protein, quantitative, serum <0.3 mg/L [facility] 0.0-4.9 " erythrocyte sedimentation rate 2 mm/h [facility] 0-15 " Quantiferon Gold TB blood test for tuberculosis screening Positive [facility] Negative Abnormal " vitamin D 25-hydroxy, serum 16.9 ng/mL [facility] 30.0-100.0 Low " rheumatoid factor 10.4 [iU]/mL [facility] 0.0-13.9 " folate, serum 3.5 ng/mL [facility] >3.0 " B-12, serum 471 pg/mL [facility] [id number] 6428/04/21 human leukocyte antigen B57 negative Sandra Mariposa hepatitis A antibody, total Positive [facility] Negative [...] IMMUNIZATIONS Date Vaccine Dose Lot Number Status joleneact im [facility] [id number] sanofi pasteur 0.5 mL [id number] completed HISTORY OF MEDICATION USE Medication Instructions [...] BY MOUTH TWO TIMES A DAY Estrellita BowserAdherperez, EPZICOM 600-300 MG ORAL TABLET 1 By Mouth Every Day with food - Sandra Monge NORVIR 100 MG ORAL TABLET 1 By Mouth Every Day - Sandra Monge PREZISTA 800 MG ORAL TABLET 1 by mouth once a day with food - Sandra Monge SOCIAL HISTORY Date Observation Value Provider " sexual orientation Pia Walker " is there any chance that you could be ? No Dylon Walker " assessment of health literacy ([facility] 2014 Standards, 3C10) Adequate Dylon Walker " passive cigarette smoke exposure No Dylon Walker " smoking status current every day smoker Dylon Walker " alcohol use Currently Dylon Walker " social history E&M Single. Single. Parents when pt was age 16, mother and father both remarried. Relationship with father "I love him but don't like him... we talk on phone 1x a week". Relationship with mother and step-father "perfect and very good". One younger brother, "get along well, he is very busy though". Not homeless. Born in [facility]. City: [place]. State: [place]. Lives w/ mom and step-father in [place], cats. Unemployed since November 2016. Highest education level: bachelor's degree. Not in workforce. Not on disability. 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 Bachelor's degree in [employer] Literature at [employer]. Sex at : Male. Sexual orientation: Palacio. Gender identity: Male. Gender of partner(s): Male. Age of first sexual intercourse: 17. Sexually Active: No. Not sexually active. Dylon Walker " social history reviewed E&M reviewed today Dylon Walker " Exercise Program Referral T Dylon Walker " Weight Management Counseling Provided T Dylon Walker " Nutrition intervention Mendez Walker time of call 08/02/2019 4:59 PM Apurva Isbell drug use, illicit Previously Dorothy Edwin " alcohol use Currently Dorothy Edwin " [...] very busy though". Not homeless. Born in [facility]. City: [place]. State: [place]. Lives w/ mom and step-father in [place], 2 cats. Unemployed since November 2016. Highest education level: bachelor's degree. Not in workforce. Not on disability. 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 Bachelor's degree in [place] Literature at [employer]. Sex at : Male. Sexual orientation: Palacio. Gender identity: Male. Gender of partner(s): Male. Age of first sexual intercourse: 17. Sexually Active: No. Not sexually active. Dorothy Pineda " social history reviewed E&M reviewed today Dorothy Pineda " assessment of health literacy ([facility] 2014 Standards, 3C10) Adequate Dorothy Pineda " [...] very busy though". Not homeless. Born in [facility]. City: [place]. State: [place]. Lives w/ mom and step-father in [place], 2 cats. Unemployed since November 2016. Highest education level: bachelor's degree. Not in workforce. Not on disability. 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 Bachelor's degree in [place] Literature at [employer]. Sex at : Male. Sexual orientation: Palacio. Gender identity: Male. Gender of partner(s): Male. Age of first sexual intercourse: 17. Sexually Active: No. Not sexually active. Cliff Jackson " social history reviewed E&M reviewed today Cliff Jackson " is there any chance that you could be ? No Cliff Jackson " assessment of health literacy ([facility] 2014 Standards, 3C10) Adequate Cliff Jackson " [...] Provided T Kari Crawford " Nutrition intervention Mendez Crawford time of call 05/21/2019 4:17 PM [...] very busy though". Not homeless. Born in [facility]. City: [place]. State: [place]. Lives w/ mom and step-father in [place], [facility]. Unemployed since November 2016. Highest education level: bachelor's degree. Not in workforce. Not on disability. 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 Bachelor's degree in [place] Literature at [employer]. Sex at : Male. Sexual orientation: Palacio. Gender identity: Male. Gender of partner(s): Male. Age of first sexual intercourse: 17. Sexually Active: No. Not sexually active. Cliff Jackson " social history reviewed E&M reviewed today Cliff Jackson " is there any chance that you could be ? No Cliff Jackson " assessment of health literacy ([facility] 2014 Standards, 3C10) Adequate Cliff Jackson " passive cigarette smoke exposure Yes Cliff Jackson " smoking status current every day smoker Cliff Jackson " smoking, advice to quit Yes Sandra [...] very busy though". Not homeless. Born in [facility]. City: [place]. State: [place]. Lives w/ mom and step-father in [place], 2 cats. Unemployed since November 2016. Highest education level: bachelor's degree. Not in workforce. Not on disability. 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 Bachelor's degree in [employer] Literature at [employer]. Sex at : Male. Sexual orientation: Palacio. Gender identity: Male. Gender of partner(s): Male. Age of first sexual intercourse: 17. Sexually Active: No. Not sexually active. Angi Martinez " social history reviewed E&M reviewed today Angi Martinez " sexual orientation Palacio Angi Martinez " is there any chance that you could be ? No Angi Martinez " assessment of health literacy ([facility] 2014 Standards, 3C10) Adequate Angi Martinez " passive cigarette smoke exposure Yes Angi Martinez " smoking status current every day smoker Angi Martinez time of call 12/02/2018 10:35 AM Adrian [...] very busy though". Not homeless. Born in [facility]. City: [place]. State: [place]. Lives w/ mom and step-father in [place], 2 cats. Unemployed since November 2016. Highest education level: bachelor's degree. Not in workforce. Not on disability. 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 Bachelor's degree in [employer] Literature at [employer]. Sex at : Male. Sexual orientation: Palacio. Gender identity: Male. Gender of partner(s): Male. Age of first sexual intercourse: 17. Sexually Active: No. Not sexually active. Angi Martinez " social history reviewed E&M reviewed today Angi Martinez " sexual orientation Palacio Angi Martinez " is there any chance that you could be ? No Angi Martinez " assessment of health literacy ([facility] 2014 Standards, 3C10) Adequate Angi Martinez " passive cigarette smoke exposure Yes Angi Martinez " smoking status current every day smoker Angi Martinez sexual orientation Palacio Alexandra Hoffmann sexual orientation Palacio Jazmin Aleah Exercise Program Referral Mendez Monge " Weight Management Counseling Provided Mendez Monge " Nutrition intervention Mendez Monge " social history E&M Single. Single. Parents when pt was age 16, mother and father both remarried. Relationship with father "I love him but don't like him... we talk on phone 1x a week". Relationship with mother and step-father "perfect and very good". One younger brother, "get along well, he is very busy though". Not homeless. Born in [facility]. City: [place]. State: [place]. Lives w/ mom and step-father in [place], 2 cats. Unemployed since November 2016. Highest education level: bachelor's degree. Not in workforce. Not on disability. 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 Bachelor's degree in [employer] Literature at [employer]. Sex at : Male. Sexual orientation: Palacio. Gender identity: Male. Gender of partner(s): Male. Age of first sexual intercourse: 17. Sexually Active: No. Not sexually active. Sandra Monge " social history reviewed E&M reviewed today Sandra Monge " drug use, illicit Previously Michelleadam Hill " alcohol use Currently Michelle Sergio " is there any chance that you could be ? No Michelle Sergio " assessment of health literacy ([facility] 2014 Standards, 3C10) Adequate Michelle Sergio " passive cigarette smoke exposure Yes Michelle Sergio " smoking status current every day smoker Michelle Sergio alcohol use Currently Elizabethnila Wolffley " drug use, illicit Previously Elizabeth Kessler " is there any chance that you could be ? No Elizabeth Kessler " sexual orientation Palacio Elizabeth Wolffley " passive cigarette smoke exposure No Elizabeth Kessler " smoking status current every day smoker Elizabeth Kessler " assessment of health literacy ([facility] 2014 Standards, 3C10) Adequate Elizabeth Kessler " Exercise Program Referral T Elizabeth Kessler " Weight Management Counseling Provided T Elizabeth Kessler " Nutrition intervention T Elizabeth Kessler smoking status current every day smoker Buck Ledesma Exercise Program Referral T Sandra Monge " Weight Management Counseling Provided T Sandra Monge " Nutrition intervention T Sandra Monge " drug use, illicit Previously Michelle Sergio " alcohol use Currently [place] " is there any chance that you could be ? No Michelle Sergio " passive cigarette smoke exposure No Michelle Sergio " smoking status current every day smoker Michelle Sergio " assessment of health literacy ([facility] 2014 Standards, 3C10) Adequate Michelle Sergio smoking status current every day smoker Buck Ledesma smoking status current every day smoker Buck Ledesma alcohol use, number maximum drinks per occasion 6 pack Buck Mireleszenon " alcohol use, frequency daily Buck Ledesma " alcohol use Currently Buck Ledesma " smoking status current every day smoker Buck Ledesma smoking, advice to quit Yes Sandra Monge " Exercise Program Referral T Sandra Monge " Weight Management Counseling Provided T Sandra Monge " Nutrition intervention T Sandra Monge " drug use, illicit Previously Deepika Gustavo " alcohol use Currently Deepika Gustavo " social history E&M Single. Single. Parents when pt was age 16, mother and father both remarried. Relationship with father "I love him but don't like him... we talk on phone 1x a week". Relationship with mother and step-father "perfect and very good". One younger brother, "get along well, he is very busy though". Not homeless. Born [place]. City: [place]. State: [place]. Lives w/ mom and step-father in [place], 2 cats. Unemployed since November 2016. Highest education level: bachelor's degree. Not in workforce. Not on disability. 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 Bachelor's degree in [employer] Literature at [employer]. Sex at : Male. Sexual orientation: Palacio. Gender identity: Male. Gender of partner(s): Male. Age of first sexual intercourse: 17. Sexually Active: No. Not sexually active. Deepika Chen " social history reviewed E&M reviewed today Deepika Chen " sexual orientation Palacio Deepika Chen " passive cigarette smoke exposure No Deepika Chen " smoking status current every day smoker Deepika Chen " assessment of health literacy ([facility] 2014 Standards, 3C10) Adequate Deepika Chen Exercise Program Referral Mendez Monge " Weight Management Counseling Provided Mendez Monge " Nutrition intervention Mendez Monge " social history E&M Single. Single. Parents when pt was age 16, mother and father both remarried. Relationship with father "I love him but don't like him... we talk on phone 1x a week". Relationship with mother and step-father "perfect and very good". One younger brother, "get along well, he is very busy though". Not homeless. Born in [facility]. City: [place]. State: [place]. Lives w/ mom and step-father in [place], cats. Unemployed since November 2016. Highest education level: bachelor's degree. Not in workforce. Not on disability. 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 Bachelor's degree in [employer] Literature at [employer]. Sex at : Male. Sexual orientation: Palacio. Gender identity: Male. Gender of partner(s): Male. Age of first sexual intercourse: 17. Sexually Active: No. Not sexually active. Deepika Jessicarez " social history reviewed E&M reviewed today Deepika Valentinoierrez " drug use, illicit Previously Deepika Jessicarez " alcohol use Currently Deeipka Jessicarez " sexual orientation Palacio Deepika Jessicarez " passive cigarette smoke exposure No Deepika Jessicarez " smoking, advice to quit Yes Deepika Jessicarez " smoking status current every day smoker Deepika Jessicarez " assessment of health literacy ([facility] 2014 Standards, 3C10) Adequate Deepika Chen Exercise Program Referral Mendez Monge " Weight Management Counseling Provided Mendez Monge " Nutrition intervention Mendez Monge " smoking, advice to quit Yes Sandra Monge " drug use, illicit Previously Deepika Jessicarez " alcohol use Currently Deepika Jessicarez " social history E&M Single. Single. Parents when pt was age 16, mother and father both remarried. Relationship with father "I love him but don't like him... we talk on phone 1x a week". Relationship with mother and step-father "perfect and very good". One younger brother, "get along well, he is very busy though". Not homeless. Born in [facility]. City: [place]. State: [place]. Lives w/ mom and step-father in [place], [facility]. Unemployed since November 2016. Highest education level: bachelor's degree. Not in workforce. Not on disability. 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 Bachelor's degree in [employer] Literature at [employer]. Sex at : Male. Sexual orientation: Palacio. Gender identity: Male. Gender of partner(s): Male. Age of first sexual intercourse: 17. Sexually Active: No. Not sexually active. Deepika Jessicarez " social history reviewed E&M reviewed today Deepika Jessicarez " sexual orientation Palacio Deepika Jessicarez " passive cigarette smoke exposure No Deepika Jessicarez " smoking status current every day smoker Deepika Jessicarez " assessment of health literacy ([facility] 2014 Standards, 3C10) Adequate Deepika Chen social history reviewed E&M reviewed today Jasper [...] very busy though". Not homeless. Born in [facility]. City: [place]. State: [place]. Lives w/ mom and step-father in [place], [facility]. Unemployed since November 2016. Highest education level: bachelor's degree. Not in workforce. Not on disability. 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 Bachelor's degree in [place] Literature at [employer]. Sex at : Male. Sexual orientation: [...] assessment Lives w/ mom and step-father in [address] Jasper Bobo " social history reviewed E&M reviewed today Sandra Monge " social history E&M Single. Spouse/Partner/Significant Other: n/a. Family is aware and supportive. Not homeless. Born in [facility]. City: [place]. State: [place]. Lives in [facility] and [facility] in [facility]. Not employed. Highest education level: bachelor's degree. [...] Monge " home/family situation, assessment Lives [place] [facility] [place] [facility] [place] in [facility]. Sandra Monge " family support Family is aware and supportive. Sandra Monge " smoking, advice to quit Yes Sandra Monge " assessment of health literacy ([facility] 2014 Standards, 3C10) Adequate Sandra Monge " [...] oriented to time, place, and person Nela Shrikant " assessment of mood and affect E&M no depression, anxiety, or agitation Nela Shrikanth assessment of judgment and insight E&M intact Nela Shrikanth " mental status examination: orientation E&M oriented to time, place, and person Nela Shrikanth " assessment of mood and affect E&M no depression, anxiety, or agitation Nela Shrikant " Generalized Anxiety Disorder Questionnaire - Question [...] Anxiety Disorder Questionnaire - Question 1 0 Kari Crawford assessment of judgment and insight E&M [...] Question 1 0 Angi Martinez assessment of mood and affect E&M good [...] Ledesma " insight (mental status exam) fair Buck Ledesma " Mental Status Exam: intelligence adequate fund of information, intact memory processes, oriented to person, oriented to place, oriented to time, oriented to situation, oriented to reality Buck Ledesma " hallucinations none Buck Ledesma " thought content (mental status exam) (E&M) lucid Buck Ledesma " mental status assessment, process able to abstract, goal-directed, logical Buck Ledesma " mental status assessment, sensorium alert, attentive, clear Buck Ledesma " affect (mental status exam) congruent, euthymic, normal intensity, normal range Buck Ledesma " mood (mental status exam) pleasant Buck Ledesma " mental status assessment, speech activity normal flow, normal pace, normal pressure, normal rate, normal tone, normal volume, spontaneous, loud Buck Ledesma " mental status assessment, motor activity normal gait, normal posture Buck Ledesma " behavior (mental status exam) appropriate, candid, cooperative, good eye contact, polite, responsive Buck Ledesma " mental appearance (mental status exam) adequate [...] Michelle Hill mental status assessment, judgment fair Buck Ledesma " insight (mental status exam) fair Zishan [...] candid, cooperative, good eye contact, polite, responsive Garettshan Samiuddin " mental appearance (mental status exam) adequate hygiene, appropriate dress, looks like stated age, satya Chamberlainiuddin mental status assessment, judgment fair Zishan Samiuddin [...] candid, cooperative, good eye contact, polite, responsive Garettmaritza Chamberlainkaden " mental appearance (mental status exam) adequate hygiene, appropriate dress, looks like stated age, neat Buck Mireleszenon mood (mental status exam) pleasant Garettmaritza Chamberlainkaden " anxiety worry a lot, sleep disturbance Garettmaritza Bulmarokaden " mental status assessment, judgment fair Garettmaritza Chamberlainkaden " insight (mental status exam) fair Garettmaritza Chamberlainkaden " Mental Status Exam: intelligence adequate fund of information, intact memory processes, oriented to person, oriented to place, oriented to time, oriented to situation, oriented to reality Garettmaritza Bulmarokaden " hallucinations none [facility] " thought content (mental status exam) (E&M) lucid Garettmaritza Ledesma " mental status assessment, process able to abstract, goal-directed, logical Garettmaritza Chamberlainkaden " mental status assessment, sensorium alert, attentive, clear Garettmaritza Chamberlainkaden " affect (mental status exam) congruent, euthymic, normal intensity, normal range Garettmaritza Keatingjagdeep " mental status assessment, speech activity normal flow, normal pace, normal pressure, normal rate, normal tone, normal volume, spontaneous, loud Garettmaritza Keatingjagdeep " mental status assessment, motor activity normal gait, normal posture Garettmaritza Chamberlainkaden " behavior (mental status exam) appropriate, candid, cooperative, good eye contact, polite, responsive Garettmaritza Keatingjagdeep " mental appearance (mental status exam) adequate hygiene, appropriate dress, looks like stated age, satya Keatingjagdeep assessment of judgment and insight E&M intact [...] of judgment and insight E&M intact Sandra Mariposa" mental status examination: orientation E&M oriented to [...] Bobo" mood (mental status exam) happy Jasper Bobo " mental status assessment, speech activity normal [...] Covered democrat ID *Jasper White 0-100% Other [id number] Sliding Fee - Cat 1 [employer] insurance [employer] [id number] *Jasper White 0-100% Other Sliding Fee - Cat 1 [employer] insurance company *Jasper White 0-100% Other [id number] *Jasper White 0-100% Other Sliding Fee - Cat 1 [employer] insurance [employer] [id number] *Jasper White 0-100% Other [id number] ADVANCE DIRECTIVES Name Date DISCUSSED - NO [...] - - Est Patient Exp Problem - 70215 Est Patient Exp Problem - 25752 Ofc Vst, Est Level III Est Patient Detailed - 05414 First Vx - Ix admin via ID IM or jet injects without counseling by physician Menactra Intramuscular Injectable Vision Vaccines Ordered - Print Consent/Declination Forms Ofc Vst, Est Level IV Xray - Chest - 2 Views - InHouse Handling of specimen for transfer Venipuncture Est Patient Detailed - 89187 Dispensing Visit (UNLIVSTED OPHTHALMOLOGICAL SERVICE/PROCEDURE) INFLUENZA VACCINE QUADRIVALENT 3 YRS PLUS IM Pneumovax Vaccine PPSV23 Admin of Vaccine - Injection - Each Add'l Admin of Vaccine - Injection - 1 Est Patient Detailed - 55382 Progressive lens, per lens Frames, purchases Est Patient Comprehensive Opth - 55787 New Patient Intermediate Opth - 84054 Est Patient Detailed - 19892 Est Patient Detailed - 71253 Est Patient Detailed - 34321 Est Patient Detailed - 92254 Est Patient Exp Problem - 04013 Est Patient Detailed - 00984 Diagnostic evaluation with medical - 21205 INFLUENZA VACCINE QUADRIVALENT 3 YRS PLUS IM Admin of Vaccine - Injection - 1 Est Patient Detailed - 91869 Est Patient Detailed - 59306 Prevnar (PCV13) IM TDAP Admin of Vaccine - Injection - Each Add'l Admin of Vaccine - Injection - 1 Est Patient Well Exam (40 - 64 Yrs) - 80757 Primary Care Service [facility] - Psychiatry Diagnostic evaluation (no medical) - 63568 IB Assessment - Parts Technician Primary Care Service Linkage Xray - Chest - PA & Lat - InHouse Primary Care Service Linkage Handling of specimen for transfer Venipuncture Integrated Behavioral Health Assessment (IBH) New Patient Well Exam (40 - 64 Yrs) - 22147 Handling of specimen for transfer Venipuncture HISTORY [...] 60.00) completed Est Patient Comprehensive Opt - 35385 Edgard Martin completed New Patient Intermediate Opt - 59144 Chriss Martin completed Diagnostic evaluation with medical - 82297 Buck Ledesma completed Primary Care Service Linkage Maximus Yancey Time spent with patient: 30 completed Diagnostic evaluation (no medical) - 81863 Jasper Bobo completed [facility] Assessment - Parts Technician Jasper Bobo completed Primary Care Service Linkage Maximus Yancey Time spent with patient: 30 completed Primary Care Service Linkage Maximus Yancey Time spent with patient: 30 completed Venipuncture Sandra Monge completed Venipuncture Sandra Monge completed GO[facility] No Information Available [facility] No Information Available
--- OUTSIDE RECORDS SUMMARY | 2020-02-03 02:22 | XMS REPORT ---
Author Author Admin, [place] Organization Unknown Address Unknown Phone Unavailable PROBLEMS [...] - Nela Shrikanth BMI < 20 active Sadnra Monge Vitamin D deficiency active Sandra Monge Immunization update completed - Nela Blackh Hx Latent tuberculosis, s/p INH/B6 active Sandra Monge Stop date 03/16/18 COPD active Sandra Monge seen on CXR TOBACCO USE DISORDER, MODERATE active Jasper Bobo ALCOHOL USE DISORDER, MODERATE active Jasper Bobo DEPRESSIVE DISORDER, OTHER SPECIFIED active Jasper Bobo Screening for hypercholesterolemia completed - Nela Blackh ENCOUNTERS Date Type Provider Location Encounter Diagnosis - Ambulatory Encounter Marcelino Breanneoz Callizo [facility] UNK - Ambulatory Encounter Marcelino Breanneoz Callizo Thida Santos [facility] UNK - Ambulatory Encounter Nela Santiikanth Nela Shrikanth [facility] Adult Medicine UNK - Ambulatory Encounter Nela Santiikanth Nela Santiikanth LM Adult Medicine UNK - Ambulatory Encounter Nela Santiikanth Nela Santiikanth Dylon Walker [facility] Abscess, axilla, right - Ambulatory Encounter Sandra Lanza [facility]Ad[facility], [facility] UNK - Ambulatory Encounter Dorothy Hancockikanth Nela Santiikabethanyh Trinidad Alberts [facility] Services Contact Center UNK - Ambulatory Encounter Isi Bliss [facility] Contact Center UNK - Ambulatory Encounter Buck Arringtons Isi Ramsaylermo Leoz Callizo Apurva Isbell [facility] Services Contact Center UNK - Ambulatory Encounter Nela Shrikanth Nela Shrikanth [facility] LM Adult Medicine UNK - Ambulatory Encounter Nela Shrikanth Nela Shrikanth [facility] LM Adult Medicine UNK - Ambulatory Encounter Nela Shrikanth Nela Shrikanth LM Adult Medicine UNK - Ambulatory Encounter Nela Shrikanth Nela Santiikabethanyh [facility] Adult [facility] Screening for hypercholesterolemiaImmunization updateFlu shotHx Bronchitis acute with bronchospasmHyponatremiaHyperkalemiaHypercalcemia - Ambulatory Encounter Destinishara Recinos [facility] Adult Medicine UNK - Ambulatory Encounter Jeromy Recinos Cliff Jackson [facility] Adult Medicine UNK - Ambulatory Encounter Jeromy Recinos [facility] Adult Medicine UNK - Ambulatory Encounter Marepam Carbajal [facility] Adult Medicine UNK - Ambulatory Encounter Dorothy Nash [facility] Contact Center UNK - Ambulatory Encounter Destinishara Recinos [facility] Adult Medicine UNK - Ambulatory Encounter Cliff Arnold [facility] UNK - Ambulatory Encounter Nela Schroeder [facility] Adult Medicine UNK - Ambulatory Encounter Nela Schroeder [facility] Adult [facility] UNK - Ambulatory Encounter Dorothy Alberts [facility] Contact Center UNK - Ambulatory Encounter Nela Schroeder [facility] Adult [facility] UNK - Ambulatory Encounter Martha Stallworth [facility] Public Health Services UNK - Ambulatory Encounter Nela Schroeder [facility] Adult Medicine UNK - Ambulatory Encounter Nela Stallworth [facility] HIV infectionHepatitis A immunityHepatitis B immunity - Ambulatory Encounter Cliff Napier [facility] UNK - Ambulatory Encounter Mare Carbajal [facility] Adult Medicine UNK - Ambulatory Encounter Rinal Jorje Napier [facility] Adult Medicine UNK - Ambulatory Encounter Cliff Recinos [facility] Adult Medicine UNK - Ambulatory Encounter Rinal Recinos [facility] Adult Medicine UNK - Ambulatory Encounter Rinal Recinos [facility] Adult Medicine UNK - Ambulatory Encounter Jazlyn Nash [facility] Medicine UNK - Ambulatory Encounter Rinal Recinos [facility] Adult Medicine UNK - Ambulatory Encounter Rinal Recinos [facility] Adult Medicine UNK - Ambulatory Encounter Rinal Recinos [facility] Adult Medicine UNK - Ambulatory Encounter Sandra Monge LM Adult Medicine UNK - Ambulatory Encounter Sandra Monge LM Adult Medicine Osteopenia - Ambulatory Encounter Cliff Jackson [facility] Adult Medicine UNK - Ambulatory Encounter Rinal Recinos [facility] Adult Medicine UNK - Ambulatory Encounter Rinal Recinos Cliff Jackson [facility] Medicine UNK - Ambulatory Encounter Cliff Jackson [facility] Adult Medicine UNK - Ambulatory Encounter Cliff Jackson [facility] Adult Medicine UNK - Ambulatory Encounter Sandra Monge [facility]Logic Jeromy Recinos [facility] Adult Medicine UNK - Ambulatory Encounter Sandra Monge [facility]Logic Meghna Arnold [facility] Adult Medicine UNK - Ambulatory Encounter Fax Status LinkLogic [facility] Services UNK - Ambulatory Encounter Fax Status LinkLogic [facility] Services UNK - Ambulatory Encounter Fax Status LinkLog[facility] UNK - Ambulatory Encounter Fax Status Link[facility] UNK - Ambulatory Encounter Mare Murillo [facility] Adult Medicine UNK - Ambulatory Encounter Jeromy Recinos [facility] Mare Carbajal [facility] Adult Medicine UNK - Ambulatory Encounter Destinishara Recinos LinkLogic [facility] Adult Medicine UNK - Ambulatory Encounter Meghna Nash [facility] Adult Medicine UNK - Ambulatory Encounter [facility] - Ambulatory Encounter Fax Status [facility] Services UNK - Ambulatory Encounter Sandra Monge [facility] Adult Medicine UNK - Ambulatory Encounter Sandra Nash [facility] Adult Medicine UNK - Ambulatory Encounter Lashaun Monge [facility] Services UNK - Ambulatory Encounter Sandra Monge LinkLogic [facility] Adult Medicine UNK - Ambulatory Encounter Rinal Recinos [facility] Adult Medicine UNK - Ambulatory Encounter Rinal Recinos Sheebarachell Manuel [facility] Medicine UNK - Ambulatory Encounter Bethanyjaswant Manuel [facility] Adult Medicine UNK - Ambulatory Encounter Meghna Virkira [facility] Adult Medicine UNK - Ambulatory Encounter Clfif Jackson [facility] Adult Medicine UNK - Ambulatory Encounter Fax Status [facility] Services UNK - Ambulatory Encounter Fax Status [facility] UNK - Ambulatory Encounter Sandra GoldsteinLogic [facility] Adult Medicine UNK - Ambulatory Encounter Sandra Monge [facility] Medicine UNK - Ambulatory Encounter Sandra Quiles [facility] Adult Medicine Increased transaminase level - Ambulatory Encounter Sandra Monge LinkLogic [facility] Medicine UNK - Ambulatory Encounter Sandra Mcgowan [facility] Medicine UNK - Ambulatory Encounter Sandra Monge LinkLogkendrick [facility] Medicine UNK - Ambulatory Encounter Sandra Monge [facility] Medicine UNK - Ambulatory Encounter Sandra Martinez [facility] Adult [facility] Hx Bronchitis acute with bronchospasmHyponatremiaHyperkalemiaHypercalcemia - Ambulatory Encounter Sandra Lanza MedAdherence, [facility] Adult Medicine UNK - Ambulatory Encounter Sandra Lanza MedAdherence, [facility] UNK - Ambulatory Encounter Cliff Jackson [facility] UNK - Ambulatory Encounter Sandra Monge [facility] Medicine UNK - Ambulatory Encounter Sandra Monge LinkLogic Cliff Jackson [facility] Medicine UNK - Ambulatory Encounter Sandra Lanza MedAdherence, [facility] Adult Medicine UNK - Ambulatory Encounter Sandra Lanza MedAdherence, [facility] Adult Medicine UNK - Ambulatory Encounter Boni Cristina [facility] Public Health Services UNK - Ambulatory Encounter Jazmin Bullard [facility] Vision UNK - Ambulatory Encounter Jazmin Bullard [facility] Vision UNK - Ambulatory Encounter Sandra Monge LinkLogkendrick [facility] Adult Medicine UNK - Ambulatory Encounter Sandra Monge LinkLogic [facility] Medicine UNK - Ambulatory Encounter Sandra Monge [facility] Adult Medicine UNK - Ambulatory Encounter Sandra Martinez [facility] Onychomycosis, toenailsImmunization update - Ambulatory Encounter Jazmin Bullard [facility] Vision UNK - Ambulatory Encounter Edgard Martin [facility] Vision UNK - Ambulatory Encounter Edgard Martin [facility] Vision UNK - Ambulatory Encounter Edgard Hoffmann [facility] Vision SPECIAL SCREENING EXAMINATION OTH SPEC VIRAL DZ - Ambulatory Encounter Chriss Martin [facility] Vision UNK - Ambulatory Encounter Chriss Martin [facility] Vision UNK - Ambulatory Encounter Chriss Martin [facility] Vision UNK - Ambulatory Encounter Chriss Bullard [facility] Vision Myopia - OURegular astigmatism, bilateralPresbyopia - OU - Ambulatory Encounter Sandra GoldsteinLogkendrick [facility] Adult Medicine UNK - Ambulatory Encounter Sandra Vargas [facility] Adult Medicine UNK - Ambulatory Encounter Sandra Vargas [facility] Adult Medicine UNK - Ambulatory Encounter Sandra Yancey MedAdherence [facility] Adult Medicine UNK - Ambulatory Encounter Sandra Lanza MedAdherence, [facility] Medicine UNK - Ambulatory Encounter Sandra Lanza MedAdherence, [facility] Adult Medicine UNK - Ambulatory Encounter Sandra Lanza MedAdherence, [facility] Adult Medicine UNK - Ambulatory Encounter Sandra Lanza MedAdherence, [facility] Adult Medicine UNK - Ambulatory Encounter Sandra Lanza MedAdherence, [facility] Adult Medicine UNK - Ambulatory Encounter Sandra Lanza MedAdherence, [facility] Adult Medicine UNK - Ambulatory Encounter Khloe Mckeon [facility] UNK - Ambulatory Encounter Khloe Lee [facility] UNK - Ambulatory Encounter Amaury Nath [facility] Adult Medicine UNK - Ambulatory Encounter Amaury Nath [facility] Adult Medicine UNK - Ambulatory Encounter Sandra Monge LM Adult Medicine UNK - Ambulatory Encounter Sandra Monge LM Adult Medicine UNK - Ambulatory Encounter Sandra Hill [facility] Adult Medicine Hx Latent tuberculosis, s/p INH/B6Hx Bronchitis acute with bronchospasm - Ambulatory Encounter Buck Ledesma [facility] UNK - Ambulatory Encounter Buck GoldsteinLogic [facility] UNK - Ambulatory Encounter Sandra Vargas [facility] Adult Medicine UNK - Ambulatory Encounter Sandra GoldsteinLogkendrick Vargas [facility] Adult Medicine UNK - Ambulatory Encounter Sandra Bush [facility] Services UNK - Ambulatory Encounter Buck Ledesma [facility] UNK - Ambulatory Encounter Buck GoldsteinLogic [facility] UNK - Ambulatory Encounter Buck Solares [facility] Contact Center UNK - Ambulatory Encounter Sandra Castro [facility] Services UNK - Ambulatory Encounter Sandra Castro [facility] Adult Medicine UNK - Ambulatory Encounter Sandra Monge LM Adult Medicine UNK - Ambulatory Encounter Sandra Monge LM Adult Medicine UNK - Ambulatory Encounter Sandra Kessler [facility] Adult Medicine UNK - Ambulatory Encounter Sandra Monge LM Adult Medicine UNK - Ambulatory Encounter Sandra Monge LinkLogic [facility] Adult Medicine UNK - Ambulatory Encounter Nancy Abrazo [facility] Services UNK - Ambulatory Encounter Khloe Jesus [facility] Services UNK - Ambulatory Encounter Nancy Jones [facility]Logic [facility] Adult Medicine UNK - Ambulatory Encounter Buck Burris [facility] UNK - Ambulatory Encounter Sandra Monge [facility] Adult Medicine UNK - Ambulatory Encounter Sandra Hill [facility] Adult Medicine Hx Latent tuberculosis, s/p INH/[id number] - Ambulatory Encounter Sandra Monge LinkLogic [facility] Adult Medicine UNK - Ambulatory Encounter Sandra Boss [facility] Adult Medicine UNK - Ambulatory Encounter Buck Clarke [facility] Services UNK - Ambulatory Encounter Buck Ledesma [facility] Health UNK - Ambulatory Encounter Buck GoldsteinLogkendrick [facility] UNK - Ambulatory Encounter Sandra GoldsteinLogic [facility] Adult Medicine UNK - Ambulatory Encounter Buck Villeda [facility] Behavioral Health UNK - Ambulatory Encounter Marymaritza Chamberlainkaden Angi Burris [facility] UNK - Ambulatory Encounter Lashaun Hallk [facility] Services UNK - Ambulatory Encounter Sigrid Abrams[facility]ulianne [facility] UNK - Ambulatory Encounter Garetteamon Chamberlainkaden [facility] UNK - Ambulatory Encounter Marymaritza Callie Isi Bliss [facility] UNK - Ambulatory Encounter Sandra GoldsteinLogic [facility] Adult Medicine UNK - Ambulatory Encounter Sandra Monge [facility] Adult Medicine UNK - Ambulatory Encounter Sandra Chen [facility] Adult Medicine Flu shot - Ambulatory Encounter Sandra GoldsteinLogic [facility] Adult Medicine UNK - Ambulatory Encounter Sandra Chen [facility] Adult Medicine UNK - Ambulatory Encounter Sandra Monge [facility] Adult Medicine UNK - Ambulatory Encounter Sandra Chen [facility] Adult Medicine BMI < 20 - Ambulatory Encounter Sandra GoldsteinLogic [facility] Adult Medicine UNK - Ambulatory Encounter Sandra GoldsteinLogic [facility] Services UNK - Ambulatory Encounter Sandra Monge [facility] Adult Medicine UNK - Ambulatory Encounter Sandra Chen [facility] Adult Medicine Immunization updateVitamin D deficiency - [facility] - [facility]ulatory Encounter Jason Gilliam [facility] Services UNK - Ambulatory Encounter Sandra Hill [facility] Adult Medicine UNK - Ambulatory Encounter [facility] Care Coordination Desktop [facility] Services UNK - Ambulatory Encounter Sandra Monge [facility] Adult Medicine COPDHx Latent tuberculosis, s/p INH/B6 - Ambulatory Encounter Sandra Kowalski [facility] Adult Medicine UNK - Ambulatory Encounter Maximus Yancey [facility] Education Rep UNK - Ambulatory Encounter Maximus Yancey [facility] Education Rep UNK - Ambulatory Encounter Jasonyoel Gilliam Idalia Nath [facility] Services UNK - Ambulatory Encounter Sandra Kowalski [facility] Adult Medicine UNK - Ambulatory Encounter Maximus Yancey [facility] Education Rep UNK - Ambulatory Encounter Sandra Mcgowan [facility] Adult Medicine UNK - Ambulatory Encounter Maximus Yancey [facility] Education Rep UNK - Ambulatory Encounter Sandra Monge [facility] Adult Medicine UNK - Ambulatory Encounter Jasper Keller [facility] Behavior[facility] DEPRESSIVE DISORDER, OTHER SPECIFIEDALCOHOL USE DISORDER, MODERATETOBACCO USE DISORDER, MODERATE - Ambulatory Encounter Sandra Jamison [facility] Adult Medicine - Ambulatory Encounter Sandra GoldsteinLogkendrick [facility] Adult Medicine UNK - Ambulatory Encounter Sandra Mariposa Monge Ashlee Day [facility] Adult Medicine Screening for hypercholesterolemia - Ambulatory Encounter Adrian Cristina [facility] Public Health Services UNK - Ambulatory Encounter Sandra Mariposa Garridoie Mariposa LinkLogic [facility] Vision UNK VITAL SIGNS No Information Available [...] creatinine, urine, 24 hour 2076 mg/24h LinkLogic [id number] High " creatinine, random, urine 38.1 mg/dL [...] creatinine, urine, 24 hour 1562 mg/24h LinkLogic [id number] " creatinine, random, urine 25.4 mg/dL LinkLogic [...] rapid plasma reagin antibody, serum Non Reactive LinkLog Non Reactive " HIV-1RNA, serum, by PCR, [...] rapid plasma reagin antibody, serum Non Reactive LinkLog Non Reactive " HIV-1RNA, serum, by PCR, [...] rapid plasma reagin antibody, serum Non Reactive LinkLog Non Reactive " HIV-1RNA, serum, by PCR, [...] [place] Non-nucleotide Reverse Transcriptase Inhibitors none Sandra Monge [...] >3.0 " B-12, serum 471 pg/mL LinkLogic [id number]/04/21 human leukocyte antigen B57 negative Sandra Mariposa [...] LinkLogic 12.0-35.5 High " absolute CD8 1366 LinkLog [id number] High " T-helper cells (CD4) as percent of blood lymphocytes 45.4 % LinkLogic 30.8-58.5 " T-helper cells (CD4) count 1226 /UL LinkLog [id number] HISTORY OF IMMUNIZATIONS Date Vaccine Dose Lot Number Status menactra [facility] [id number] sanofi pasteur 0.5 mL [id number] completed HISTORY OF MEDICATION USE Medication Instructions Dates Provider Comments PROZAC 20 MG ORAL CAPSULE Take one capsule daily. Marcelino Flores PIFELTRO 100 MG ORAL TABLET Take 1 tablet orally once daily Nela Schroeder ONDANSETRON 4 MG ORAL TABLET DISINTEGRATING 1 By Mouth every 8 hours as needed for nausea/vomiting. Sandra Monge PREZCOBIX 800-150 MG ORAL TABLET 1 tab by mouth daily with food - Nela Shrcaleb FENOFIBRATE 48 MG ORAL TABLET tk 1 t By Mouth Every Day - Nela Blackh B12 1GM DAILY Sandra Monge AZITHROMYCIN 250 MG ORAL TABLET 2 tablets by mouth on day one then one tablet by mouth each day for a total of 5 days - Sandra Monge XOPENEX HFA 45 MCG HFA AER AD INHALE TWO PUFFS BY MOUTH EVERY 4 TO 6 HOURS NEEDED Estrellita Lanza MedAdherence, ok to change per Dr. Monge, due [...] by mouth daily with food - Nela Blackh PROZAC 40 MG ORAL CAPSULE 1 By [...] BY MOUTH TWO TIMES A DAY Estrellita Lanza MedAdherperez, EPZICOM 600-300 MG ORAL TABLET 1 By Mouth Every Day with food - Sandra Monge NORVIR 100 MG ORAL TABLET 1 By Mouth Every Day - Sandra Monge PREZISTA 800 MG ORAL TABLET 1 by mouth once a day with food - Sandra Monge SOCIAL HISTORY Date Observation Value Provider drug use, illicit Previously Marcelino Li Flores " alcohol use Currently Marcelino Flores " smoking status current every day smoker Marcelino Flores " social history E&M Single. Single. Parents when pt was age 16, mother and father both remarried. Relationship with father "I love him but don't like him... we talk on phone 1x a week". Relationship with mother and step-father "perfect and very good". One younger brother, "get along well, he is very busy though". Not homeless. Born in [facility]. City: [place]. State: [place]. Lives w/ mom and step-father in [place], cats. Unemployed since November 2016. Highest education level: bachelor's degree. Not in workforce. Not on disability. 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 Bachelor's degree in [place] [employer] at [employer]. Sex at : Male. Sexual orientation: Palacio. Gender identity: Male. Gender of partner(s): Male. Age of first sexual intercourse: 17. Sexually Active: No. Not sexually active. Marcelino Flores " social history reviewed E&M reviewed today Marcelino Flores " sexual orientation Palacio Dylon Walker " is there any chance that you could be ? No Dylon Walker " assessment of health literacy (MSQA [facility] 2014 Standards, 3C10) Adequate Dylon Belle Walker " passive cigarette smoke exposure No Dylon E Aaron " smoking status current every day smoker Dylon Walker " alcohol use Currently Dylon E Aaron " social history E&M Single. Single. Parents when pt was age 16, mother and father both remarried. Relationship with father "I love him but don't like him... we talk on phone 1x a week". Relationship with mother and step-father "perfect and very good". One younger brother, "get along well, he is very busy though". Not homeless. Born in [facility]. City: [place]. State: [place]. Lives w/ mom and step-father in [place], cats. Unemployed since November 2016. Highest education level: bachelor's degree. Not in workforce. Not on disability. 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 Bachelor's degree in [place] at [employer]. Sex at : Male. Sexual orientation: Palacio. [...] Dorothy Pineda " alcohol use Currently Dorothy Pineda " social history E&M Single. Single. Parents when pt was age 16, mother and father both remarried. Relationship with father "I love him but don't like him... we talk on phone 1x a week". Relationship with mother and step-father "perfect and very good". One younger brother, "get along well, he is very busy though". Not homeless. Born in [facility]. City: [place]. State: [place]. Lives w/ mom and step-father in [address] Unemployed since November 2016. Highest education level: bachelor's degree. Not in workforce. Not on disability. 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 Bachelor's degree in [place] at [employer]. Sex at : Male. Sexual orientation: Palacio. Gender identity: Male. Gender of partner(s): Male. Age of first sexual intercourse: 17. Sexually Active: No. Not sexually active. Dorothy Pineda " social history reviewed E&M reviewed today Dorothy Pineda " assessment of health literacy (NCQA PCMH 2014 Standards, 3C10) Adequate Dorothy Pineda " passive cigarette smoke exposure No Dorothy Pineda " smoking status current every day smoker Dorothy Pineda drug use, illicit Previously Sheebarachell Manuel " alcohol use Currently Sheebarachell Manuel " [...] very busy though". Not homeless. Born in [facility]. City: [place]. State: [place]. Lives w/ mom and step-father in [place], 2 cats. Unemployed since November 2016. Highest education level: bachelor's degree. Not in workforce. Not on disability. 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 Bachelor's degree in [place] at [employer]. Sex at : Male. Sexual orientation: Palacio. Gender identity: Male. Gender of partner(s): Male. Age of first sexual intercourse: 17. Sexually Active: No. Not sexually active. Cliff Jackson " social history reviewed E&M reviewed today Cliff Jackson " is there any chance that you could be ? No Cliff Jackson " assessment of health literacy ([facility] 2014 Standards, 3C10) Adequate Cliff Jackson " passive cigarette smoke exposure Yes Cliff Jackson " smoking status current every day smoker Cliff Jackson time of call 05/28/2019 1:25 PM Jazlyn Arnold time of call 05/25/2019 3:44 PM Srinath Pineda time of call 05/24/2019 9:01 AM Martha [...] very busy though". Not homeless. Born in [facility]. City: [place]. State: [place]. Lives w/ mom and step-father in [place], cats. Unemployed since November 2016. Highest education level: bachelor's degree. Not in workforce. Not on disability. 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 Bachelor's degree in [place] [employer] at [employer]. Sex at : Male. Sexual orientation: Palacio. Gender identity: Male. Gender of partner(s): Male. Age of first sexual intercourse: 17. Sexually Active: No. Not sexually active. Cliff Jackson " social history reviewed E&M reviewed today Cliff Jackson " is there any chance that you could be ? No Cliff Jackson " assessment of health literacy ([facility] 2014 Standards, 3C10) Adequate Cliff Jackson " [...] very busy though". Not homeless. Born in [facility]. City: [place]. State: [place]. Lives w/ mom and step-father in [place], 2 cats. Unemployed since November 2016. Highest education level: bachelor's degree. Not in workforce. Not on disability. 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 Bachelor's degree in [place] at [employer]. Sex at : Male. Sexual orientation: Palacio. Gender identity: Male. Gender of partner(s): Male. Age of first sexual intercourse: 17. Sexually Active: No. Not sexually active. Angi Martinez " social history reviewed E&M reviewed today Angi Martinez " sexual orientation Palacio Angi Martinez " is there any chance that you could be ? No Angi Martinez " assessment of health literacy ([facility] 2014 Standards, 3C10) Adequate Angi Martinez " [...] very busy though". Not homeless. Born in [facility]. City: [place]. State: [place]. Lives w/ mom and step-father in [place], 2 cats. Unemployed since November 2016. Highest education level: bachelor's degree. Not in workforce. Not on disability. 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 Bachelor's degree in [place] at [employer]. Sex at : Male. Sexual orientation: Palacio. Gender identity: Male. Gender of partner(s): Male. Age of first sexual intercourse: 17. Sexually Active: No. Not sexually active. Angi Martinez " social history reviewed E&M reviewed today Angi Forsyth " sexual orientation Palacio Angi Martinez " is there any chance that you could be ? No Angi Forsyth " assessment of health literacy ([facility] 2014 Standards, 3C10) Adequate Angi Juan " passive cigarette smoke exposure Yes Angi Martinez " smoking status current every day smoker Angi Martinez sexual orientation Palacio Alexandra Hoffmann sexual orientation Palacio Jazmin Bullard Exercise Program [...] very busy though". Not homeless. Born in [facility]. City: [place]. State: [place]. Lives w/ mom and step-father in [place], cats. Unemployed since November 2016. Highest education level: bachelor's degree. Not in workforce. Not on disability. 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 Bachelor's degree in [place] at [employer] [facility]. Sex at : Male. Sexual orientation: Palacio. Gender identity: Male. Gender of partner(s): Male. Age of first sexual intercourse: 17. Sexually Active: No. Not sexually active. Sandra Monge " social history reviewed E&M reviewed today Sandra Monge " drug use, illicit Previously Michelle Hill " alcohol use Currently Michelle Hill " is there any chance that you could be ? No Michelle Hill " assessment of health literacy ([facility] 2014 Standards, 3C10) Adequate Michelle Hill " passive cigarette smoke exposure Yes Michelle Hill " smoking status current every day smoker Michelle Hill alcohol use Currently Elizabeth Kessler " drug use, illicit Previously Elizabeth Kessler " is there any chance that you could be ? No Elizabeth Kessler " sexual orientation Palacio Elizabeth Kessler " passive cigarette smoke exposure No Elizabeth Kessler " smoking status current every day smoker Elizabeth Kessler " assessment of health literacy ([facility] 2014 Standards, 3C10) Adequate Elizabeth Kessler " [...] Previously Michelleadam Hill " alcohol use Currently Michelleadam Hill " is there any chance that you could be ? No Michelleadam Hill " passive cigarette smoke exposure No Michelleadam Hill " smoking status current every day smoker Michelle Sergio " assessment of health literacy ([facility] 2014 Standards, 3C10) Adequate Michelle Sergio smoking [...] Sandra Monge " drug use, illicit Previously Deepikabeatris Chen " alcohol use Currently Deepika Gustavo " [...] very busy though". Not homeless. Born in [facility]. City: [place]. State: [place]. Lives w/ mom and step-father in [place], 2 cats. Unemployed since November 2016. Highest education level: bachelor's degree. Not in workforce. Not on disability. 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 Bachelor's degree in [place] at [employer]. Sex at : Male. Sexual orientation: Palacio. [...] Deepika Chen " assessment of health literacy ([facility] 2014 Standards, 3C10) Adequate Deepika Chen Exercise [...] very busy though". Not homeless. Born in [facility]. City: [place]. State: [place]. Lives w/ mom and step-father in [place], cats. Unemployed since November 2016. Highest education level: bachelor's degree. Not in workforce. Not on disability. 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 Bachelor's degree in [place] at [employer]. Sex at : Male. Sexual orientation: Palacio. Gender identity: Male. Gender of partner(s): Male. Age of first sexual intercourse: 17. Sexually Active: No. Not sexually active. Deepika Chen " social history reviewed E&M reviewed today Deepika Chen " drug use, illicit Previously Deepika Chen " alcohol use Currently Deepika Chen " sexual orientation Palacio Deepika Chen " passive cigarette smoke exposure No Deepika Chen " smoking, advice to quit Yes Deepika Chen " smoking status current every day smoker Deepika Chen " assessment of health literacy ([facility] 2014 Standards, 3C10) Adequate Deepika Chen Exercise Program Referral T Sandra Monge " Weight Management Counseling Provided T Sandra Monge " Nutrition intervention Mendez Monge " smoking, advice to quit Yes Sandra Monge " drug use, illicit Previously Deepika Valentinoierrez " alcohol use Currently Deepika Gustavo " [...] very busy though". Not homeless. Born in [facility]. City: [place]. State: [place]. Lives w/ mom and step-father in [place], 2 cats. Unemployed since November 2016. Highest education level: bachelor's degree. Not in workforce. Not on disability. 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 Bachelor's degree in [place] at [employer] [facility]. Sex at : Male. Sexual orientation: Palacio. Gender identity: Male. Gender of partner(s): Male. Age of first sexual intercourse: 17. Sexually Active: No. Not sexually active. Deepika Chen " social history reviewed E&M reviewed today Deepika Chen " sexual orientation Palacio Deepikamarco antonio Chen " passive cigarette smoke exposure No Deepika Chen " smoking status current every day smoker Deepika Valentinoierrez " assessment of health literacy ([facility] 2014 Standards, 3C10) Adequate Deepika Chen social [...] very busy though". Not homeless. Born in [facility]. City: [place]. State: [place]. Lives w/ mom and step-father in [place], 2 cats. Unemployed since November 2016. Highest education level: bachelor's degree. Not in workforce. Not on disability. 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 Bachelor's degree in [place] at [employer]. Sex at : Male. Sexual orientation: Palacio. Gender identity: Male. Gender of partner(s): Male. Age of first sexual intercourse: 17. Sexually Active: No. Not sexually active. Jasper Bobo" drug use, illicit Previously Jasper Bobo" alcohol use, number maximum drinks per occasion 4-5 beers Jasper Bobo" alcohol use, frequency daily Jasper Bobo" alcohol use Currently Jasper Bobo " current cigarette packs per day 1-1.5 Jasper Bobo" smoking status current every day smoker Jasper Bobo" sexual orientation Palacio Jasper Bobo" sex at Male Jasper Bobo" Occupation #1 Unemployed Jasper Bobo" patient considered to be homeless No Jasper Bobo" social history - sexual practice Not sexually active. Jasper Bobo" family support Single. Parents when pt was age 16, mother and father both remarried. Relationship with father "I love him but don't like him... we talk on phone 1x a week". Relationship with mother and step-father "perfect and very good". One younger brother, "get along well, he is very busy though". Jasper Bobo " home/family situation, assessment Lives w/ mom and step-father in [place], [facility]. Jasper Bobo" social history reviewed E&M reviewed today Sandra Monge" social history E&M Single. Spouse/Partner/Significant Other: n/a. Family is aware and supportive. Not homeless. Born in [facility]. City: [place]. State: [place]. [place] [facility] [place] [facility] [place] [facility]. Not employed. Highest education level: bachelor's degree. Not working at this time. Sex at : Male. Sexual orientation: Palacio. Gender identity: Male. Gender of partner(s): Male. Age of first sexual intercourse: 17 . Sexually Active: No. Not sexually active since he was diagnosed with HIV. Sandra Monge" social history - sexual practice Not sexually active since he was diagnosed with HIV. Sandra Monge" home/family situation, assessment [place] [facility] [place] stepdad in [facility]. Sandra Monge " family support Family is aware and supportive. Sandra Monge " smoking, advice to quit Yes Sandra Monge " assessment of health literacy ([facility] 2014 Standards, 3C10) Adequate Sandra Monge " [...] Available MENTAL STATUS Date Observation Value Provider mental status assessment, judgment fair Marcelino Leoz Callizo " insight (mental status exam) fair Marcelino Leoz Callizo " Mental Status Exam: intelligence adequate fund of information, intact memory processes, oriented to person, oriented to place, oriented to time, oriented to situation, oriented to reality Marcelino Leoz Callizo " hallucinations none Marcelino Leoz Callizo " thought content (mental status exam) (E&M) lucid Marcelino Leoz Callizo " mental status assessment, process able to abstract, goal-directed, logical Marcelino Leoz Callizo " mental status assessment, sensorium alert, attentive, clear Marcelino Leoz Callizo " affect (mental status exam) congruent, euthymic, normal intensity, normal range, reactive Marcelino Leoz Callizo " mood (mental status exam) pleasant Marcelino Leoz Callizo " mental status assessment, speech activity normal flow, normal pace, normal pressure, normal rate, normal tone, normal volume, spontaneous, loud Marcelino Leoz Callizo " mental status assessment, motor activity normal gait, normal posture Marcelino Leoz Callizo " behavior (mental status exam) appropriate, candid, cooperative, good eye contact, polite, responsive Marcelino Leoz Callizo " mental appearance (mental status exam) adequate hygiene, appropriate dress, looks like stated age, neat, smells of heavy cigarette smoke/tobacco Marcelino Leoz Callizo assessment of judgment and insight E&M intact [...] oriented to person, place, and time Sandra Monge " assessment of mood and affect E&M good eye contact, normal affect Sandra Monge " Generalized Anxiety Disorder Questionnaire - Question 2 0 Angi Martinez " Generalized Anxiety Disorder Questionnaire - Question 1 0 Angi Martinez assessment of mood and affect E&M good eye contact, normal affect Edgard Martin " mental status examination: orientation E&M alert and oriented to person, place, and time Edgard Martin assessment of judgment and insight E&M [...] E&M no depression, anxiety, or agitation Sandra Donovanek " Generalized Anxiety Disorder Questionnaire - Question [...] oriented to situation, oriented to reality Buck Chamberlainijagdeep " hallucinations none Zishan Samiuddin " thought content (mental status exam) (E&M) lucid Buck Ledesma " mental status assessment, process able to abstract, goal-directed, logical Garettshan Samiuddin " mental status assessment, sensorium alert, attentive, clear Garettshan Samiuddin " affect (mental status exam) congruent, euthymic, normal intensity, normal range Zishan Samiuddin " mood (mental status exam) pleasant Garettshan Samiuddin " mental status assessment, speech activity normal flow, normal pace, normal pressure, normal rate, normal tone, normal volume, spontaneous, loud Garettshan Samiuddin " mental status assessment, motor activity normal gait, normal posture Buck Ledesma " behavior (mental status exam) appropriate, candid, cooperative, good eye contact, polite, responsive Buck Ledesma " mental appearance (mental status exam) adequate hygiene, appropriate dress, looks like stated age, neat Buck Keatingjagdeep assessment of judgment and insight E&M intact Sandrakaylen Monge " mental status examination: orientation E&M [...] congruent, euthymic, normal intensity, normal range Buck Chamberlainiuddin " mood (mental status exam) pleasant Buck [...] appropriate dress, looks like stated age, satya Marymaritza Chamberlainkaden mental status assessment, judgment fair Buck Ledesma [...] appropriate dress, looks like stated age, neat Zishan Samiuddin mood (mental status exam) pleasant Zishan Samiuddin [...] normal intensity, normal range Zishan Samiuddin " mental status assessment, speech activity normal flow, normal pace, normal pressure, normal rate, normal tone, normal volume, spontaneous, loud Zishan Samiuddin " mental status assessment, motor activity normal gait, normal posture Zishan Samiuddin " behavior (mental status exam) appropriate, candid, cooperative, good eye contact, polite, responsive Garetteamon eKatingjanetzenon" mental appearance (mental status exam) adequate hygiene, appropriate dress, looks like stated age, neat Buck Ledesma assessment of judgment and insight E&M intact Sandra Monge " mental status examination: orientation E&M oriented to time, place, and person Sandra Mariposa " assessment of mood and affect E&M no depression, anxiety, or agitation Sandra Donovanek " Generalized Anxiety Disorder Questionnaire - Question 2 0 Deepika Gustavo " Generalized Anxiety Disorder Questionnaire - Question 1 0 Deepikabeatris Chen Generalized Anxiety Disorder Questionnaire - Question 2 0 Deepikabeatris Chen " Generalized Anxiety Disorder Questionnaire - Question 1 0 Deepika Gustavo assessment of judgment and insight E&M intact Sandra Donovanek " mental status examination: orientation E&M oriented to time, place, and person Sandra Mariposa " assessment of mood and affect E&M no depression, anxiety, or agitation Sandra Donovanek " Generalized Anxiety Disorder Questionnaire - Question 2 0 Deepikabeatris Chen " Generalized Anxiety Disorder Questionnaire - Question 1 0 Deepika Gustavo delusion No Jasper Bobo" mental status assessment, judgment fair Jasper Bobo" insight (mental status exam) fair Jasper Bobo " Mental Status Exam: intelligence adequate fund of information, intact memory processes, oriented to person, oriented to place, oriented to time, oriented to situation, oriented to reality Jasper Bobo " hallucinations none Jasper Bobo " thought content (mental status exam) (E&M) lucid Jasper Bobo " mental status assessment, process able to abstract, logical, circumstantial Jasper Bobo" mental status assessment, sensorium alert, attentive, clear Jasper Bobo " affect (mental status exam) congruent, normal intensity, normal range Jasper Bobo" mood (mental status exam) happy Jasper Bobo " mental status assessment, speech activity normal flow, normal pace, normal pressure, normal rate, normal tone, normal volume, spontaneous, loud Jasper Bobo" mental status assessment, motor activity normal gait, normal posture Jasper Bobo " behavior (mental status exam) appropriate, candid, cooperative, good eye contact, responsive Jasper Bobo " mental appearance (mental status exam) adequate hygiene, appropriate dress, looks like stated age, satya Bobo Generalized Anxiety Disorder Questionnaire - Question 2 0 Michelleadam Hill " Generalized Anxiety Disorder Questionnaire - Question 1 0 Michelleadam Hill MEDICAL EQUIPMENT No Information Available FAMILY HISTORY No Information Available INSURANCE PROVIDERS Payer name Policy type / Coverage type Covered alliance party ID *Jasper White 0-100% Other [id number] Sliding Fee - Cat 1 Commercial insurance [email or web address] [id number] *Jasper White 0-100% Other Sliding Fee - Cat 1 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 *Jasper White 0-100% Other [id number] *Jasper White 0-100% Other Sliding Fee - Cat 1 [employer] insurance [email or web address] [id number] *Jasper White 0-100% Other [id number] ADVANCE DIRECTIVES Name Date DISCUSSED - NO [...] - - hypercalcemia - - Est Patient Detailed - 55950 Est Patient Exp Problem - 07899 Est Patient Exp Problem - 82798 Ofc Vst, Est Level III Est Patient Detailed - 42530 First Vx - Ix admin via ID IM or jet injects without counseling by physician Menactra Intramuscular Injectable Vision Vaccines Ordered - Print Consent/Declination Forms Ofc Vst, Est Level IV Xray - Chest - 2 Views - InHouse Handling of specimen for transfer Venipuncture Est Patient Detailed - 14350 Dispensing Visit (UNLIVSTED OPHTHALMOLOGICAL SERVICE/PROCEDURE) INFLUENZA VACCINE QUADRIVALENT 3 YRS PLUS IM Pneumovax Vaccine PPSV23 Admin of Vaccine - Injection - Each Add'l Admin of Vaccine - Injection - 1 Est Patient Detailed - 92466 Progressive lens, per lens Frames, purchases Est Patient Comprehensive Opth - 94634 New Patient Intermediate Opth - 45022 Est Patient Detailed - 88880 Est Patient Detailed - 03399 Est Patient Detailed - 92425 Est Patient Detailed - 65053 Est Patient Exp Problem - 01014 Est Patient Detailed - 34869 Diagnostic evaluation with medical - 80093 INFLUENZA VACCINE QUADRIVALENT 3 YRS PLUS IM Admin of Vaccine - Injection - 1 Est Patient Detailed - 05707 Est Patient Detailed - 15645 Prevnar (PCV13) IM TDAP Admin of Vaccine - Injection - Each Add'l Admin of Vaccine - Injection - 1 Est Patient Well Exam (40 - 64 Yrs) - 91263 Primary Care Service [facility] Behavior[facility] - Psychiatry Diagnostic evaluation (no medical) - 10668 IB Assessment - Facility Manager Histology Primary Care Service Linkage Xray - Chest - PA & Lat - InHouse Primary Care Service Linkage Handling of specimen for transfer Venipuncture Integrated Behavioral Health Assessment (IBH) New Patient Well Exam (40 - 64 Yrs) - 42767 Handling of specimen for transfer Venipuncture HISTORY [...] 60.00) completed Est Patient Comprehensive Opt - 76428 Edgard Martin completed New Patient Intermediate Opt - 08249 Chriss Martin completed Diagnostic evaluation with medical - 25135 Buck Ledesma completed Primary Care Service Linkage Maximus Yancey Time spent with patient: 30 completed Diagnostic evaluation (no medical) - 00563 Jasper Bobo completed IB Assessment - Facility Manager Histology Jasper Bobo completed Primary Care Service Linkage Maximus Yancey Time spent with patient: 30 completed Primary Care Service Linkage Maximus Yancey Time spent with patient: 30 completed Venipuncture Sandra Monge completed Venipuncture Sandra Monge completed GOALS No Information Available [facility] No Information Available
--- OUTSIDE RECORDS SUMMARY | 2020-02-03 02:23 | XMS REPORT ---
Author Author Admin, [place] Organization Unknown Address Unknown Phone Unavailable PROBLEMS [...] Diagnosis - Ambulatory Encounter Marcelino Breanneoz Callizo [facility] - Ambulatory Encounter Marcelino Breanneoz Callizo Thida Santos [facility] - Ambulatory Encounter Nela Santiikanth Nela Shrikanth [facility] Adult Medicine UNK - Ambulatory Encounter Nela Santiikanth Nela Santiikanth LM Adult Medicine UNK - Ambulatory Encounter Nela Santiikanth Nela Santiikanth Dylon Walker [facility] Abscess, axilla, right - Ambulatory Encounter Sandra Lanza MedAdherence, [facility] UN[place] - Ambulatory Encounter Dorothy Hancockikanth Nela Santiikabethanyh Trinidad Albetrs [facility] Contact Center UNK - Ambulatory Encounter Isi Bliss [facility] Contact Center UNK - Ambulatory Encounter Buck Arringtons Isi Ramsaylermo Leoz Callizo Apurva Isbell [facility] Contact Center UNK - Ambulatory [...] Medicine UNK - Ambulatory Encounter Dorothy Nash [facility] Contact Center UNK - Ambulatory Encounter Destinishara Recinos [facility] Adult [facility] UNK - Ambulatory Encounter Cliff Arnold [facility] UNK - Ambulatory Encounter Nela Schroeder [facility] Adult Medicine UNK - Ambulatory Encounter Nela Schroeder [facility] Adult [facility] UNK - Ambulatory Encounter Dorothy Alberts [facility] Contact Center UNK - Ambulatory Encounter Nela Schroeder [facility] Adult Medicine UNK - Ambulatory Encounter Martha Stallworth [facility] Public Health Services UNK - Ambulatory Encounter Nela Schroeder [facility] Adult [facility] UNK - Ambulatory Encounter Nela Stallworth [facility] HIV infectionHepatitis A immunityHepatitis B immunity - Ambulatory Encounter Cliff Napier [facility] UNK - Ambulatory Encounter Mare Carbajal [facility] UNK - Ambulatory Encounter Rinal Jorje Napier [facility] UNK - Ambulatory Encounter Cliff Recinos [facility] Adult [facility] UNK - Ambulatory Encounter Rinal Recinos [facility] LM Adult Medicine UNK - Ambulatory Encounter Rinal Recinos [facility] LM Adult Medicine UNK - Ambulatory Encounter Jazlyn Nash [facility] UNK - Ambulatory Encounter [...] - Ambulatory Encounter Rinal Recinos Cliff Jackson [facility] UNK - Ambulatory Encounter Cliff Jackson LM Adult Medicine UNK - Ambulatory Encounter Cliff Jackson [facility] LM Adult Medicine UNK - Ambulatory Encounter Sandra Monge [facility] Jeromy Recinos [facility] UNK - Ambulatory Encounter Sandra Monge [facility] Meghna Arnold [facility] UNK - Ambulatory Encounter Fax Status [facility] UNK - Ambulatory Encounter Fax Status [facility] UNK - Ambulatory Encounter Fax Status [facility] UNK - Ambulatory Encounter Fax Status [facility] UNK - Ambulatory Encounter Mare Murillo [facility] UNK - Ambulatory Encounter Jeromy Recinos [facility] Mare Carbajal [facility] UNK - Ambulatory Encounter Destinishara Recinos [facility] UNK - Ambulatory Encounter Meghna Nash [facility] UNK - Ambulatory Encounter Fax Status [facility] UNK - Ambulatory Encounter Fax Status [facility] UNK - Ambulatory Encounter Sandra Monge [facility] UNK - Ambulatory Encounter Sandra Nash [facility] UNK - Ambulatory Encounter Lashaun Monge [facility] UNK - Ambulatory Encounter Sandra Monge LinkLogic [facility] UNK - Ambulatory Encounter Rinal Recinos [facility] UNK - Ambulatory Encounter Rinal Recinos Sheebarachell Manuel [facility] UNK - Ambulatory Encounter Bethanyjaswant Manuel [facility] UNK - Ambulatory Encounter Meghna Virkira [facility] UNK - Ambulatory Encounter Cliff Jackson [facility] UNK - Ambulatory Encounter Fax Status [facility] Services UNK - Ambulatory Encounter [facility] - Ambulatory Encounter Sandra GoldsteinLogic [facility] UNK - Ambulatory Encounter Sandra Monge [facility] UNK - Ambulatory Encounter Sandra Quiles [facility] Increased transaminase level - Ambulatory Encounter Sandra Monge LinkLogic [facility] UNK - Ambulatory Encounter Sandra Mcgowan [facility] UNK - Ambulatory Encounter Sandra Monge LinkLogkendrick [facility] UNK - Ambulatory Encounter Sandra Monge [facility] UNK - Ambulatory Encounter Sandra Martinez [facility] Hx Bronchitis acute with bronchospasmHyponatremiaHyperkalemiaHypercalcemia - Ambulatory Encounter Sandra Lanza MedAdherence, [facility] UNK - Ambulatory Encounter Sandra Lanza MedAdherence, [facility] UNK - Ambulatory Encounter Cliff Jackson [facility] UNK - Ambulatory Encounter Sandra Monge [facility] UNK - Ambulatory Encounter Sandra Monge [facility] Cliff Jackson [facility] UNK - Ambulatory Encounter Sandra Lanza MedAdherence, [facility] UNK - Ambulatory Encounter Sandra Lanza MedAdherence, [facility] UNK - Ambulatory Encounter Boni Cristina [facility] Public Health Services UNK - Ambulatory Encounter Jazmin Bullard [facility] UNK - Ambulatory Encounter Jazmin Bullard [facility] UNK - Ambulatory Encounter Sandra Monge LinkLogkendrick [facility] UNK - Ambulatory Encounter Sandra Monge LinkLogic [facility] UNK - Ambulatory Encounter Sandra Monge [facility] UNK - Ambulatory Encounter Sandra Martinez [facility] Onychomycosis, toenailsImmunization update - Ambulatory Encounter Jazmin Bullard [facility] UNK - Ambulatory Encounter Edgard Martin [facility] UNK - Ambulatory Encounter Edgard Martin [facility] UNK - Ambulatory Encounter Edgard Hoffmann [facility] SPECIAL SCREENING EXAMINATION OTH SPEC VIRAL DZ - Ambulatory Encounter Chriss Martin [facility] UNK - Ambulatory Encounter Chriss Martin [facility] UNK - Ambulatory Encounter Chriss Martin [facility] UNK - Ambulatory Encounter Chriss Bullard [facility] Vision Myopia - OURegular astigmatism, bilateralPresbyopia - OU - Ambulatory Encounter Sandra GoldsteinLogkendrick [facility] UNK - Ambulatory Encounter Sandra Vargas [facility] UNK - Ambulatory Encounter Sandra Vargas [facility] UNK - Ambulatory Encounter Sandra Yancey MedAdherence [facility] UNK - Ambulatory Encounter Sandra Lanza MedAdherence, [facility] UNK - Ambulatory Encounter Sandra Lanza MedAdherence, [facility] UNK - Ambulatory Encounter Sandra Lanza MedAdherence, [facility] UNK - Ambulatory Encounter Sandra Lanza MedAdherence, [facility] UNK - Ambulatory Encounter Sandra Lanza MedAdherence, [facility] UNK - Ambulatory Encounter Sandra Lanza MedAdherence, [facility] UNK - Ambulatory Encounter Khloe Mckeon [facility] UNK - Ambulatory Encounter Khloe Lee [facility] UNK - Ambulatory Encounter Amaury Nath [facility] Adult Medicine UNK - Ambulatory Encounter Amaury Nath [facility] Adult Medicine UNK - Ambulatory Encounter Sandra Monge LM Adult Medicine UNK - Ambulatory Encounter Sandra Monge LM Adult Medicine UNK - Ambulatory Encounter Sandra Hill [facility] Hx Latent tuberculosis, s/p INH/B6Hx Bronchitis acute with bronchospasm - Ambulatory Encounter Buck Ledesma [facility] UN[facility] - Ambulatory Encounter Buck GoldsteinLogic [facility] UNK - Ambulatory Encounter Sanrda Vargas [facility] UNK - Ambulatory Encounter Sandra GoldsteinLogkendrick Vargas [facility] UNK - Ambulatory Encounter Sandra Bush [facility] UNK - Ambulatory Encounter Buck Ledesma [facility] UNK - Ambulatory Encounter Buck GoldsteinLogic [facility] UNK - Ambulatory Encounter Buck Solares [facility] Contact Center UNK - Ambulatory Encounter Sandra Castro [facility] UNK - Ambulatory Encounter Sandra Castro LM Adult Medicine UNK - Ambulatory Encounter Sandra Monge LM Adult Medicine UNK - Ambulatory Encounter Sandra Monge LM Adult Medicine UNK - Ambulatory Encounter Sandra Kessler [facility] UNK - Ambulatory Encounter Sandra Monge LM Adult Medicine UNK - Ambulatory Encounter Sandra Monge LinkLogic [facility] UNK - Ambulatory Encounter Nancy Banner [facility] Services UNK - Ambulatory Encounter Khloe Jesus [facility] UNK - Ambulatory Encounter Nancy Jones [facility]Log[facility] UNK - Ambulatory Encounter Buck Burris [facility] UNK - Ambulatory Encounter Sandra Monge [facility] UNK - Ambulatory Encounter Sandra Hill [facility] Hx Latent tuberculosis, s/p INH/[id number] - Ambulatory Encounter Sandra Monge LinkLogic [facility] UNK - Ambulatory Encounter Sandra Boss [facility] UNK - Ambulatory Encounter Buck Clarke [facility] UNK - Ambulatory Encounter Buck Ledesma [facility] UNK - Ambulatory Encounter Buck GoldsteinLogkendrick [facility] UNK - Ambulatory Encounter Sandra GoldsteinLogic [facility] UNK - Ambulatory Encounter Buck Villeda [facility] Behavior[facility] Health UNK - Ambulatory Encounter Marymaritza Chamberlainkaden Angi Burris [facility] UNK - Ambulatory Encounter Lashaun Hallk [facility] UNK - Ambulatory Encounter Sigrid Abrams[facility]ulianne [facility] UNK - Ambulatory Encounter Garetteamon Chamberlainkaden [facility] UNK - Ambulatory Encounter Marymaritza Callie Isi Bliss [facility] UNK - Ambulatory Encounter Sandra GoldsteinLogic [facility] UNK - Ambulatory Encounter Sandra Monge [facility] UNK - Ambulatory Encounter Sandra Chen [facility] Flu shot - Ambulatory Encounter Sandra GoldsteinLogic [facility] UNK - Ambulatory Encounter Sandra Chen [facility] UNK - Ambulatory Encounter Sandra Monge [facility] UNK - Ambulatory Encounter Sandra Chen [facility] BMI < 20 - Ambulatory Encounter Sandra GoldsteinLogic [facility] UNK - Ambulatory Encounter Sandra GoldsteinLogic [facility] UNK - Ambulatory Encounter Sandra Monge [facility] UNK - Ambulatory Encounter Sandra Chen [facility] Immunization updateVitamin D deficiency - [facility]ulatory Encounter Jason Gilliam [facility] UNK - Ambulatory Encounter Sandra Hill [facility] UNK - Ambulatory Encounter [facility] Care Coordination Desktop [facility] UNK - Ambulatory Encounter Sandra Monge [facility] COPDHx Latent tuberculosis, s/p INH/B6 - Ambulatory Encounter Sandra Kowalski [facility] UNK - Ambulatory Encounter Maximus Yancey [facility] Sign Builder Supervisor UNK - Ambulatory Encounter Maximus Yancey [facility] Sign Builder Supervisor UNK - Ambulatory Encounter Jasonyoel Gilliam Idalia Nath [facility] UNK - Ambulatory Encounter Sandra Kowalski [facility] UNK - Ambulatory Encounter Maximus Yancey [facility] Sign Builder Supervisor UNK - Ambulatory Encounter Sandra Mcgowan [facility] UNK - Ambulatory Encounter Maximus Yancey [facility] Sign Builder Supervisor UNK - Ambulatory Encounter Sandra Monge [facility] UNK - Ambulatory Encounter Jasper Keller [facility] DEPRESSIVE DISORDER, OTHER SPECIFIEDALCOHOL USE DISORDER, MODERATETOBACCO USE DISORDER, MODERATE - Ambulatory Encounter Sandra Jamison [facility] - Ambulatory Encounter Sandra GoldsteinLogkendrick [facility] UNK - Ambulatory Encounter Sandra Mariposa Monge Ashlee Day [facility] Screening for hypercholesterolemia - Ambulatory Encounter Adrian Cristina [facility] Public Health Services UNK - Ambulatory Encounter Sandra Mariposa Garridoie Mariposa LinkLogic [facility] Vision UNK VITAL SIGNS No Information [...] creatinine, urine, 24 hour 2076 mg/24h [facility] [id number] High " creatinine, random, urine 38.1 mg/dL [...] creatinine, urine, 24 hour 1562 mg/24h [facility] [id number] " creatinine, random, urine 25.4 mg/dL [facility] [...] >3.0 " B-12, serum 471 pg/mL [facility] [id number] 9918/04/21 human leukocyte antigen B57 negative Sandra Mariposa [...] Date Vaccine Dose Lot Number Status [facility] [address]-21 sanofi pasteur 0.5 mL [id number] completed HISTORY OF MEDICATION USE Medication Instructions [...] very busy though". Not homeless. Born in [facility]. City: [place]. State: [place]. Lives w/ mom and step-father in [place], cats. Unemployed since November 2016. Highest education level: bachelor's degree. Not in workforce. Not on disability. 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 Sex at : Male. Sexual orientation: Palacio. Gender identity: Male. Gender of partner(s): Male. Age of first sexual intercourse: 17. Sexually Active: No. Not sexually active. Marcelino Flores " social history reviewed E&M reviewed today Marcelino Flores " sexual orientation Palacio Dylon Walker " is there any chance that you could be ? No Dylon Walker " assessment of health literacy ([facility] 2014 Standards, 3C10) Adequate Dylon Belle Walker [...] very busy though". Not homeless. Born in [facility]. City: [place]. State: [place]. Lives w/ mom and step-father in [place], cats. Unemployed since November 2016. Highest education level: bachelor's degree. Not in workforce. Not on disability. 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 Sex at : Male. Sexual orientation: Palacio. Gender identity: Male. Gender of partner(s): Male. Age of first sexual intercourse: 17. Sexually Active: No. Not sexually active. Dylon Walker " social history reviewed E&M reviewed today Dylon Walker " Exercise Program Referral T Dylon Walker " Weight Management Counseling Provided T Dylon Walker " Nutrition intervention Mendez Walker time of call 08/02/2019 4:59 PM Apurav Isbell drug use, illicit Previously Dorothy Pineda [...] very busy though". Not homeless. Born in [facility]. City: [place]. State: [place]. Lives w/ mom and step-father in [address] Unemployed since November 2016. Highest education level: bachelor's degree. Not in workforce. Not on disability. 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 Sex at : Male. Sexual orientation: Palacio. [...] very busy though". Not homeless. Born in [facility]. City: [place]. State: [place]. Lives w/ mom and step-father in [place], 2 cats. Unemployed since November 2016. Highest education level: bachelor's degree. Not in workforce. Not on disability. 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 Sex at : Male. Sexual orientation: Palacio. Gender identity: Male. Gender of partner(s): Male. Age of first sexual intercourse: 17. Sexually Active: No. Not sexually active. Cilff Jackson " social history reviewed E&M reviewed today Cliff Jackson " is there any chance that you could be ? No Cliff Jackson " assessment of health literacy ([facility] 2014 Standards, 3C10) Adequate Cliff Jackson " [...] very busy though". Not homeless. Born in [facility]. City: [place]. State: [place]. Lives w/ mom and step-father in [place], cats. Unemployed since November 2016. Highest education level: bachelor's degree. Not in workforce. Not on disability. 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 Sex at : Male. Sexual orientation: Palacio. Gender identity: Male. Gender of partner(s): Male. Age of first sexual intercourse: 17. Sexually Active: No. Not sexually active. Cliff Jackson " social history reviewed E&M reviewed today Cliff Jackson " is there any chance that you could be ? No Cliff Jackson " assessment of health literacy ([facility] 2014 Standards, 3C10) Adequate Cliff Jackson " [...] very busy though". Not homeless. Born in [facility]. City: [place]. State: [place]. Lives w/ mom and step-father in [place], 2 cats. Unemployed since November 2016. Highest education level: bachelor's degree. Not in workforce. Not on disability. 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 Sex at : Male. Sexual orientation: Palacio. Gender identity: Male. Gender of partner(s): Male. Age of first sexual intercourse: 17. Sexually Active: No. Not sexually active. Angi Martinez " social history reviewed E&M reviewed today Angi Martinez " sexual orientation Palacio Angi Martinez " is there any chance that you could be ? No Angi Martinez " assessment of health literacy ([facility] 2014 Standards, 3C10) Adequate Angi Martinez " [...] very busy though". Not homeless. Born in [facility]. City: [place]. State: [place]. Lives w/ mom and step-father in [place], 2 cats. Unemployed since November 2016. Highest education level: bachelor's degree. Not in workforce. Not on disability. 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 Sex at : Male. Sexual orientation: Palacio. Gender identity: Male. Gender of partner(s): Male. Age of first sexual intercourse: 17. Sexually Active: No. Not sexually active. Angi Martinez " social history reviewed E&M reviewed today Angi Bristol " sexual orientation Palacio Angi Martinez " is there any chance that you could be ? No Angi Bristol " assessment of health literacy ([facility] 2014 Standards, 3C10) Adequate Angi Juan " [...] very busy though". Not homeless. Born in [facility]. City: [place]. State: [place]. Lives w/ mom and step-father in [place], cats. Unemployed since November 2016. Highest education level: bachelor's degree. Not in workforce. Not on disability. 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 Sex at : Male. Sexual orientation: Palacio. [...] " assessment of health literacy ([facility] 2014 Standards, 3C10) Adequate Michelle Hill " [...] " assessment of health literacy ([facility] 2014 Standards, 3C10) Adequate Elizabeth Kessler " [...] " assessment of health literacy ([facility] 2014 Standards, 3C10) Adequate Michelle Sergio smoking [...] very busy though". Not homeless. Born in [facility]. City: [place]. State: [place]. Lives w/ mom and step-father in [place], 2 cats. Unemployed since November 2016. Highest education level: bachelor's degree. Not in workforce. Not on disability. 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 Sex at : Male. Sexual orientation: Palacio. [...] " assessment of health literacy ([facility] 2014 Standards, 3C10) Adequate Deepika Chen Exercise [...] very busy though". Not homeless. Born in [facility]. City: [place]. State: [place]. Lives w/ mom and step-father in [place], cats. Unemployed since November 2016. Highest education level: bachelor's degree. Not in workforce. Not on disability. 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 Sex at : Male. Sexual orientation: Palacio. [...] " assessment of health literacy ([facility] 2014 Standards, 3C10) Adequate Deepika Chen Exercise [...] very busy though". Not homeless. Born in [facility]. City: [place]. State: [place]. Lives w/ mom and step-father in [place], 2 cats. Unemployed since November 2016. Highest education level: bachelor's degree. Not in workforce. Not on disability. 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 Sex at : Male. Sexual orientation: Palacio. [...] Deepika Valentinoierrez " assessment of health literacy ([facility] 2014 Standards, 3C10) Adequate Deepika Chen social [...] very busy though". Not homeless. Born in [facility]. City: [place]. State: [place]. Lives w/ mom and step-father in [place], 2 cats. Unemployed since November 2016. Highest education level: bachelor's degree. Not in workforce. Not on disability. 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 Sex at : Male. Sexual orientation: Palacio. [...] assessment Lives w/ mom and step-father in [place], [facility]. Jasper Bobo" social history reviewed E&M reviewed today Sandra Monge" social history E&M Single. Spouse/Partner/Significant Other: n/a. Family is aware and supportive. Not homeless. Born in [facility]. City: [place]. State: [place]. [place] [facility] [place] in [facility]. Not employed. Highest education level: bachelor's [...] Sandra Monge" home/family situation, assessment Lives [place] [facility] [place] and stepdad in [facility]. Sandra Monge " family support Family is aware and supportive. Sandra Monge " smoking, advice to quit Yes Sandra Monge " assessment of health literacy ([facility] 2014 Standards, 3C10) Adequate Sandra Monge " [...] candid, cooperative, good eye contact, polite, responsive Garettaemon Keatingjanetzenon" mental appearance (mental status exam) adequate hygiene, [...] name Policy type / Coverage type Covered libertarian ID *Jasper White 0-100% Other [id number] Sliding Fee - Cat 1 Commercial insurance [employer] [id number] *Jasper White 0-100% Other Sliding Fee - Cat 1 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 *Jasper White 0-100% Other [id number] *Jasper White 0-100% Other Sliding Fee - Cat 1 [employer] [id number] *Jasper White 0-100% Other [id number] ADVANCE DIRECTIVES Name Date DISCUSSED - NO [...] hypercalcemia - - Est Patient Detailed - 21289 Est Patient Exp Problem - 28540 Est Patient Exp Problem - 17105 Ofc Vst, Est Level III Est Patient Detailed - 68875 First Vx - Ix admin via ID IM or jet injects without counseling by physician Menactra Intramuscular Injectable Vision Vaccines Ordered - Print Consent/Declination Forms Ofc Vst, Est Level IV Xray - Chest - 2 Views - InHouse Handling of specimen for transfer Venipuncture Est Patient Detailed - 44357 Dispensing Visit (UNLIVSTED OPHTHALMOLOGICAL SERVICE/PROCEDURE) INFLUENZA VACCINE QUADRIVALENT 3 YRS PLUS IM Pneumovax Vaccine PPSV23 Admin of Vaccine - Injection - Each Add'l Admin of Vaccine - Injection - 1 Est Patient Detailed - 09926 Progressive lens, per lens Frames, purchases Est Patient Comprehensive Opth - 57557 New Patient Intermediate Opth - 45854 Est Patient Detailed - 60196 Est Patient Detailed - 87021 Est Patient Detailed - 47054 Est Patient Detailed - 64465 Est Patient Exp Problem - 47782 Est Patient Detailed - 71172 Diagnostic evaluation with medical - 04674 INFLUENZA VACCINE QUADRIVALENT 3 YRS PLUS IM Admin of Vaccine - Injection - 1 Est Patient Detailed - 16253 Est Patient Detailed - 11499 Prevnar (PCV13) IM TDAP Admin of Vaccine - Injection - Each Add'l Admin of Vaccine - Injection - 1 Est Patient Well Exam (40 - 64 Yrs) - 69850 Primary [facility] - Psychiatry Diagnostic evaluation (no medical) - 48246 IB Assessment - Natural Gas Engineer Primary Care Service [facility] Xray - Chest - PA & Lat - InHouse Primary [facility] Service [facility] Handling of specimen for transfer Venipuncture Integrated Behavioral Health Assessment (IBH) New Patient Well Exam (40 - 64 Yrs) - 94037 Handling of specimen for transfer Venipuncture HISTORY [...] 60.00) completed Est Patient Comprehensive Opt - 66928 Edgard Martin completed New Patient Intermediate Opt - 81359 Chriss Martin completed Diagnostic evaluation with medical - 70873 Buck Ledesma completed Primary [facility] Maximus Yancey Time spent with patient: 30 completed Diagnostic evaluation (no medical) - 75010 Jasper Bobo completed IB Assessment - Natural Gas Engineer Jasper Bobo completed Primary Care Service [facility] Maximus Yancey Time spent with patient: 30 completed Primary Care Service [facility] Maximus Yancey Time spent with patient: 30 completed Venipuncture Sandra Monge completed Venipuncture Sandra Monge completed GOALS No Information Available HEALTH [facility]ERNS No Information Available
--- OUTSIDE RECORDS SUMMARY | 2020-02-03 02:25 | XMS REPORT ---
Author Author Admin, [place] Organization Unknown Address Unknown Phone Unavailable PROBLEMS [...] active Sandra Monge Vitamin D deficiency active Sadnra oMnge Immunization update completed - Nela Blackh Hx Latent tuberculosis, s/p INH/B6 active Sandra Monge Stop date 03/16/18 COPD active Sandra Monge seen on CXR TOBACCO USE DISORDER, MODERATE active Jasper Bobo ALCOHOL USE DISORDER, MODERATE active Jasper Bobo DEPRESSIVE DISORDER, OTHER SPECIFIED active Jasper Bobo Screening for hypercholesterolemia completed - Nela Schroeder ENCOUNTERS Date Type Provider Location Encounter Diagnosis - Ambulatory Encounter Nela Lanza [facility], [facility] [place] Medicine UNK - Ambulatory Encounter Nelairina Canasnth LM Adult Medicine UNK - Ambulatory Encounter Nelairina Blackh Dorothy Pineda [facility] Adult Medicine UNK - Ambulatory Encounter Nelairina Blackh Dorothy Lanza [facility], [facility] Adult Medicine UNK - Ambulatory Encounter Marcelino Leoz Callizo [facility] Behavioral Health UNK - Ambulatory Encounter Marcelino Leoz Callizo Thida Santos [facility] UNK - Ambulatory Encounter Nela Schroeder LinkLogic [facility] Adult Medicine UNK - Ambulatory Encounter Nelairina Hancockikanth [facility] Adult Medicine UNK - Ambulatory Encounter Nela Walker [facility] Adult Medicine Abscess, axilla, right - Ambulatory Encounter Sandra Lanza [facility], [facility] Adult Medicine UNK - Ambulatory Encounter Dorothy Alberts [facility] Contact Center UNK - Ambulatory Encounter Isi Bliss [facility] Contact Center UNK - Ambulatory Encounter Zishan Samiuddin Ganga Masters Isi Isbell [facility] Services Contact Center UNK - Ambulatory Encounter Nela Canasanthony Schroeder [facility]Logic [facility] Adult Medicine UNK - Ambulatory Encounter Nela Canasanthony Canasnth [facility]Logic [facility] Adult Medicine UNK - Ambulatory Encounter Nelairina Canasanthony Blackh [facility] Adult Medicine UNK - Ambulatory Encounter Nelairina Canasanthony Pineda [facility] Adult Medicine Screening for hypercholesterolemiaImmunization updateFlu shotHx Bronchitis acute with bronchospasmHyponatremiaHyperkalemiaHypercalcemia - Ambulatory Encounter Rinal Recinos [facility] Adult Medicine UNK - Ambulatory Encounter Rinshara Jackson [facility] Adult Medicine UNK - Ambulatory Encounter Rinshara Recinos [facility]ic [facility] Adult Medicine UNK - Ambulatory Encounter Mare Carbajal [facility] Adult Medicine UNK - Ambulatory Encounter Dorothy Nash [facility] Services Contact Center UNK - Ambulatory Encounter Jeromy Recinos [facility] Adult Medicine UNK - Ambulatory Encounter Cliff Arnold [facility] Adult Medicine UNK - Ambulatory Encounter Nela Schroeder LinkLogic [facility] Adult Medicine UNK - Ambulatory Encounter Nela Schroeder LinkLogic [facility] Adult Medicine UNK - Ambulatory Encounter Dorothy Rnodon Shrikabethanykirill Rondon Santikendrabethanykirill Srinath Alberts [facility] Services Contact Center UNK - Ambulatory Encounter Nela Rondon Santikendrabethanykirill LinkLogic [facility] Adult Medicine UNK - Ambulatory Encounter Martha Stallworth [facility] Public Health Services UNK - Ambulatory Encounter Nela Rondon Alexandre [facility] Adult Medicine UNK - Ambulatory Encounter Nela Canasbethanykirill Canasbethanykirill Kari Stallworth [facility] Adult Medicine HIV infectionHepatitis A immunityHepatitis B immunity - Ambulatory Encounter Cliff Napier [facility] Services Contact Center UNK - Ambulatory Encounter Mare Carbajal [facility] Adult Medicine UNK - Ambulatory Encounter Rinal Recinos Cliff Napier LM Adult Medicine UNK - Ambulatory Encounter Cliff Pinzon Recinos [facility] Adult Medicine UNK - Ambulatory Encounter Rinal Recinos [facility]Logic [facility] Adult Medicine UNK - Ambulatory Encounter Rinal Recinos [facility]Logic [facility] Adult Medicine UNK - Ambulatory Encounter Jazlyn Nash [facility] Adult Medicine UNK - Ambulatory Encounter Rinal Recinos [facility]Logic [facility] Adult Medicine UNK - Ambulatory Encounter Rinal Recinos [facility]ic [facility] Adult Medicine UNK - Ambulatory Encounter Rinal Recinos [facility]ic [facility] Adult Medicine UNK - Ambulatory Encounter Sandra Monge LM Adult Medicine UNK - Ambulatory Encounter Sandra Monge [facility] Adult Medicine Osteopenia - Ambulatory Encounter Cliff Jackson [facility] Adult Medicine UNK - Ambulatory Encounter Jeromy Recinos [facility] Adult Medicine UNK - Ambulatory Encounter Destinishara Recinos Cliff Jackson [facility] Adult Medicine UNK - Ambulatory Encounter Cliff Jackson [facility] Adult Medicine UNK - Ambulatory Encounter Cliff Jackson LinkLogic [facility] Adult Medicine UNK - Ambulatory Encounter Sandra Monge LinkLogic Jeromy Recinos [facility] Adult Medicine UNK - Ambulatory Encounter Sandra Monge LinkLogic Meghnarachell Arnold [facility] Adult Medicine UNK - Ambulatory Encounter Fax Status [facility] - Ambulatory Encounter Fax Status [facility] - Ambulatory Encounter Fax Status [facility] UN[facility] - Ambulatory Encounter Fax Status [facility] UNK - Ambulatory Encounter Mare Murillo [facility] Adult Medicine UNK - Ambulatory Encounter Jeromy Recinos LinkLogic Mare Carbajal [facility] Adult Medicine UNK - Ambulatory Encounter Jeromy Recinos LinkLogic [facility] Adult Medicine UNK - Ambulatory Encounter Meghna Nash [facility] Adult Medicine UNK - Ambulatory Encounter Fax Status [facility] UN[facility] - Ambulatory Encounter Fax Status [facility] UN[facility] - Ambulatory Encounter Sandra Monge [facility] Adult Medicine UNK - Ambulatory Encounter Sandra Nash [facility] Adult Medicine UNK - Ambulatory Encounter Lashaun Monge [facility] UNK - Ambulatory Encounter Sandra Monge LinkLogic [facility] Adult Medicine UNK - Ambulatory Encounter Jeromy Recinos [facility] Adult Medicine UNK - Ambulatory Encounter Jeromy Recinos Bethanyjaswant Manuel [facility] Adult Medicine UNK - Ambulatory Encounter Trenasofia Jackson [facility] Adult Medicine UNK - Ambulatory Encounter Meghna Nash [facility] Adult Medicine UNK - Ambulatory Encounter Betahnyjaswant Jackson [facility] Adult Medicine UNK - Ambulatory Encounter Fax Status [facility] UNK - Ambulatory Encounter Fax Status [facility] UNK - Ambulatory Encounter Sandra Monge LinkLogic [facility] Adult Medicine UNK - Ambulatory Encounter Sandra Monge [facility] Adult Medicine UNK - Ambulatory Encounter Sandra Quiles [facility] Adult Medicine Increased transaminase level - Ambulatory Encounter Sandra Monge LinkLogic [facility] Adult Medicine UNK - Ambulatory Encounter Sandra Mcgowan [facility] Adult Medicine UNK - Ambulatory Encounter Sandra Mnoge LinkLogic [facility] Adult Medicine UNK - Ambulatory Encounter Sandra Monge [facility] Adult Medicine UNK - Ambulatory Encounter Sandra Martinez [facility] Adult Medicine Hx Bronchitis acute with bronchospasmHyponatremiaHyperkalemiaHypercalcemia - Ambulatory Encounter Sandra Lanza MedAdherence, [facility] Adult Medicine UNK - Ambulatory Encounter Sandra Lanza MedAdherence, [facility] Adult Medicine UNK - Ambulatory Encounter Cliff Jackson [facility] Adult Medicine UNK - Ambulatory Encounter Sandra Monge [facility] Adult Medicine UNK - Ambulatory Encounter Sandra Monge LinkLogic Cliff Jackson [facility] Adult Medicine UNK - Ambulatory Encounter Sandra Lanza [facility]Adherence, [facility] Adult Medicine UNK - Ambulatory Encounter Sandra Lanza [facility]Adherence, [facility] Adult Medicine UNK - Ambulatory Encounter Boni Cristina [facility] Public Health Services UNK - Ambulatory Encounter Jazmin Bullard [facility] Vision UNK - Ambulatory Encounter Jazmin Bullard [facility] Vision UNK - Ambulatory Encounter Sandra Monge LinkLogic [facility] Adult Medicine UNK - Ambulatory Encounter Sandra Monge LinkLogic [facility] Adult Medicine UNK - Ambulatory Encounter Sandra Monge [facility] Adult Medicine UNK - Ambulatory Encounter Sandra Martinez [facility] Adult Medicine Onychomycosis, toenailsImmunization update - Ambulatory Encounter Jazmin Bullard [facility] Vision UNK - Ambulatory Encounter Edgard Martin [facility] Vision UNK - Ambulatory Encounter Edgard Martin [facility] Vision UNK - Ambulatory Encounter Edgard Martin Alexandra Hoffmann [facility] Vision SPECIAL SCREENING EXAMINATION OTH SPEC VIRAL DZ - Ambulatory Encounter Chriss Martin [facility] Vision UNK - Ambulatory Encounter Chriss Martin [facility] Vision UNK - Ambulatory Encounter Chriss Martin [facility] Vision UNK - Ambulatory Encounter Chrissjesus Russellkaylen Bullard [facility] Vision Myopia - OURegular astigmatism, bilateralPresbyopia - OU - Ambulatory Encounter Sandra Kowalski [facility] Adult Medicine UNK - Ambulatory Encounter Sandra Haro Vargas [facility] Adult Medicine UNK - Ambulatory Encounter Sandra Varags [facility] Adult Medicine UNK - Ambulatory Encounter Sanrda Yancey MedAdherence [facility] Adult Medicine UNK - Ambulatory Encounter Sandra Lanza MedAdherence, [facility] Adult Medicine UNK - Ambulatory Encounter Sandra Lanza MedAdherence, [facility] Adult Medicine UNK - Ambulatory Encounter Sandra Lanza MedAdherence, [facility] Adult Medicine UNK - Ambulatory Encounter Sandra Mariposa Sandrakaylen Lanza [facility], [facility] Adult Medicine UNK - Ambulatory Encounter Sandra Lanza [facility], [facility] Adult Medicine UNK - Ambulatory Encounter Sandra BowserAdherence, [facility] Adult Medicine UNK - Ambulatory Encounter Khloe Mckeon [facility] UNK - Ambulatory Encounter Khloe Lee [facility] UNK - Ambulatory Encounter Amaury Nath [facility] Adult Medicine UNK - Ambulatory Encounter Amaury Nath [facility] Adult Medicine UNK - Ambulatory Encounter Sandra Monge [facility] Adult Medicine UNK - Ambulatory Encounter Sandra Monge [facility] Adult Medicine UNK - Ambulatory Encounter Sandra Hill [facility] Adult Medicine Hx Latent tuberculosis, s/p INH/B6Hx Bronchitis acute with bronchospasm - Ambulatory Encounter Buck Ledesma [facility] UNK - Ambulatory Encounter Buck Kowalski [facility] UNK - Ambulatory Encounter Sandra Vargas [facility] Adult Medicine UNK - Ambulatory Encounter Sandra Vargas [facility] Adult Medicine UNK - Ambulatory Encounter Sandra Bush [facility] Services UNK - Ambulatory Encounter Buck Ledesma [facility] Behavior[facility] Health UNK - Ambulatory Encounter Buck Kowalski [facility] UNK - Ambulatory [facility] - Ambulatory Encounter Sandra Childsoc Yejesus Gloria [facility] Services UNK - Ambulatory Encounter Sandra Monge LinkLogic Leny Yejesus ChildsCastro [facility] Adult Medicine UNK - Ambulatory Encounter Sandra Monge [facility] Adult Medicine UNK - Ambulatory Encounter Sandra Monge [facility] Adult Medicine UNK - Ambulatory Encounter Sandra Kessler [facility] Adult Medicine UNK - Ambulatory Encounter Sandra Monge [facility] Adult Medicine UNK - Ambulatory Encounter Sandra GoldsteinLogic [facility] Adult Medicine UNK - Ambulatory Encounter Nancy [facility] Services UNK - Ambulatory Encounter Khloe Jesus [facility] UNK - Ambulatory Encounter Nancy GoldsteinLogic [facility] Adult Medicine UNK - Ambulatory Encounter Buck Burris [facility] Health UNK - Ambulatory Encounter Sandra Monge LM Adult Medicine UNK - Ambulatory Encounter Sandra Hill [facility] Adult Medicine Hx Latent tuberculosis, s/p INH/[id number] - Ambulatory Encounter Sandra Monge LinkLogic LM Adult Medicine UNK - Ambulatory Encounter Sandra Boss [facility] Adult Medicine UNK - Ambulatory Encounter Garetteamon Chamberlainkaden Clarke [facility] Health Services UNK - Ambulatory Encounter Garetteamon Chamberlainkaden LM Behavioral Health UNK - Ambulatory Encounter Garetteamon Chamberlainkaden LinkLogic [facility] UNK - Ambulatory Encounter Sandra Monge LinkLogic [facility] Adult Medicine UNK - Ambulatory Encounter Garetteamon Chamberlainkaden Caro [facility] Behavioral Health UNK - Ambulatory Encounter Garetteamon Chamberlainkaden Burris [facility] UNK - Ambulatory Encounter Lashaun Mckeon [facility] Services UNK - Ambulatory Encounter [facility] UNK - Ambulatory Encounter Garetteamon Keatingjagdeep [facility] UNK - Ambulatory Encounter Marymaritza Callie Bliss [facility] UNK - Ambulatory Encounter Sandra Monge LinkLogic [facility] Adult Medicine UNK - Ambulatory Encounter Sandra Monge [facility] Adult Medicine UNK - Ambulatory Encounter Sandra Chen [facility] Adult Medicine Flu shot - Ambulatory Encounter Sandra Monge LinkLogic LM Adult Medicine UNK - Ambulatory Encounter Sandra Chen [facility] Adult Medicine UNK - Ambulatory Encounter Sandra Monge LM Adult Medicine UNK - Ambulatory Encounter Sandra Chen [facility] Adult Medicine BMI < 20 - Ambulatory Encounter Sandra Kowalski [facility] Adult Medicine UNK - Ambulatory Encounter Sandra Monge [facility] Services UNK - Ambulatory Encounter Sandra Monge [facility] Adult Medicine UNK - Ambulatory Encounter Sandra Chen [facility] Adult Medicine Immunization updateVitamin D deficiency - Ambulatory Encounter Sandra Monge [facility] Services UNK - Ambulatory Encounter Jason Gilliam [facility] Services UNK - Ambulatory Encounter Sandra Hill [facility] Adult Medicine UNK - Ambulatory Encounter [facility] Care Coordination Desktop [facility] UNK - Ambulatory Encounter Sandra Monge [facility] Adult Medicine COPDHx Latent tuberculosis, s/p INH/B6 - Ambulatory Encounter Sandra GoldsteinKansas Voice Centerkendrick [facility] Adult Medicine UNK - Ambulatory Encounter Maximus Yancey [facility] Editorial Cartoonist UNK - Ambulatory Encounter Maximus Yancey [facility] Editorial Cartoonist UNK - Ambulatory Encounter Jason Torreencompass healthchanda [facility] Services UNK - Ambulatory Encounter Sandra GoldsteinKansas Voice Centerkendrick [facility] Adult Medicine UNK - Ambulatory Encounter Maximuskrys Yancey [facility] Editorial Cartoonist UNK - Ambulatory Encounter Sandra Mcgowan [facility] Adult Medicine UNK - Ambulatory Encounter Maximuskrys Yancey [facility] Editorial Cartoonist UNK - Ambulatory Encounter Sandra Monge [facility] Adult Medicine UNK - Ambulatory Encounter Jasper Keller [facility] Behavioral Health DEPRESSIVE DISORDER, OTHER SPECIFIEDALCOHOL USE DISORDER, MODERATETOBACCO USE DISORDER, MODERATE - Ambulatory Encounter Sandra Jamison [facility] Adult Medicine - Ambulatory Encounter Sandra Monge LinkLogic [facility] Adult Medicine UNK - Ambulatory Encounter Sandra Day [facility] Adult Medicine Screening for hypercholesterolemia - Ambulatory Encounter Adrian Cristina [facility] Public Health Services UNK - Ambulatory Encounter Sandra Monge LinkLogkendrick [facility] Vision UNK VITAL SIGNS No Information Available [...] creatinine, urine, 24 hour 2076 mg/24h LinkLogic [id number] High " creatinine, random, urine 38.1 mg/dL [...] creatinine, urine, 24 hour 1562 mg/24h LinkLogic [id number] " creatinine, random, urine 25.4 mg/dL LinkLogic [...] " T-helper cells (CD4) count 859 /UL LinkLog [phone] vitamin D 25-hydroxy, serum 35.4 ng/mL LinkLogic 30.0-100.0 " rapid plasma reagin antibody, serum Non Reactive LinkLogic Non Reactive " HIV-1RNA, serum, by PCR, quantitative <20 copies/mL LinkLog " LDL cholesterol, serum 109 mg/dL LinkLogic [...] " T-helper cells (CD4) count 1218 /UL LinkLog [phone] rapid plasma reagin antibody, serum Non Reactive LinkLog Non Reactive " HIV-1RNA, serum, by PCR, quantitative <20 copies/mL LinkLog " LDL cholesterol, serum 65 mg/dL LinkLogic [...] X10E3/UL LinkLogic 3.4-10.8 " CD4/CD8 ratio 0.86 LinkLog 0.92-3.72 Low " T-suppressor cells (CD8) as percent of blood lymphocytes 50.3 % LinkLogic 12.0-35.5 High " absolute CD8 1559 LinkLogic [phone] High " T-helper cells (CD4) as percent of blood lymphocytes 43.2 % LinkLog 30.8-58.5 " T-helper cells (CD4) count 1339 /UL LinkLog [phone] rapid plasma reagin antibody, serum Non [facility]active [facility] Non Reactive " HIV-1RNA, serum, by PCR, quantitative <20 copies/mL LinkLog " LDL cholesterol, serum 45 mg/dL LinkLogic [...] >3.0 " B-12, serum 471 pg/mL LinkLogic [phone]/04/21 human leukocyte antigen B57 negative Sandra Monge [...] T-helper cells (CD4) count 1226 /UL LinkLogic [phone] HISTORY OF IMMUNIZATIONS Date Vaccine Dose Lot Number Status [facility] [id number] sanofi pasteur 0.5 mL [id number] completed HISTORY OF MEDICATION USE Medication Instructions Dates Provider Comments HYPERCARE 15 % EXTERNAL SOLUTION Apply once daily as needed Nela Shrikanth PROZAC 20 MG ORAL CAPSULE Take one capsule daily. Marcelino Jefferson Callizo PIFELTRO 100 MG ORAL TABLET Take 1 tablet orally once daily Nela Shrikaanthony ONDANSETRON 4 MG ORAL TABLET DISINTEGRATING 1 [...] DAY - Lashaun Mckeon TIVICAY 50 MG TABLET TAKE ONE TABLET BY MOUTH ONCE DAILY Nela Shrikantkirill DESCOVY 200-25 MG ORAL TABLET 1 tab [...] mos. STOP DATE IS 03/16/18 - Sandra Mariposa PROZAC 20 MG ORAL CAPSULE 1 By Mouth Every Day - Sandra Monge METOPROLOL SUCCINATE 50 MG TAB ER 24H TAKE ONE TABLET BY MOUTH DAILY Estrellita Lanza MedAdherence, ENALAPRIL MALEATE 20 MG TABLET TAKE ONE TABLET BY MOUTH TWO TIMES A DAY Estrellita Lanza MedAdherence, EPZICOM 600-300 MG ORAL TABLET 1 By Mouth Every Day with food - Sandra Monge NORVIR 100 MG ORAL TABLET 1 By Mouth Every Day - Sandra Monge PREZISTA 800 MG ORAL TABLET 1 by mouth once a day with food - Sandra Monge SOCIAL HISTORY Date Observation Value Provider drug use, illicit Previously Dorothy Pineda " [...] very busy though". Not homeless. Born in [facility]. City: [place]. State: [place]. Lives w/ mom and step-father in [place], cats. Unemployed since November 2016. Highest education level: bachelor's degree. Not in workforce. Not on disability. 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 Sex at : Male. Sexual orientation: Palacio. Gender identity: Male. Gender of partner(s): Male. Age of first sexual intercourse: 17. Sexually Active: No. Not sexually active. Dorothy Pineda " social history reviewed E&M reviewed today Dorothy Pineda " assessment of health literacy ([employer] [facility] 2014 Standards, 3C10) Adequate Dorothy Pineda " passive cigarette smoke exposure No Dorothy Pineda " smoking status current every day smoker Dorothy Pineda drug use, illicit Previously Marcelino Bruceo " alcohol use Currently Marcelino Bruceo " smoking status current every day smoker Marcelino Bruceo " social history E&M Single. Single. Parents when pt was age 16, mother and father both remarried. Relationship with father "I love him but don't like him... we talk on phone 1x a week". Relationship with mother and step-father "perfect and very good". One younger brother, "get along well, he is very busy though". Not homeless. Born in [facility]. City: [place]. State: [place]. Lives w/ mom and step-father in [place], 2 cats. Unemployed since November 2016. Highest education level: bachelor's degree. Not in workforce. Not on disability. 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 Sex at : Male. Sexual orientation: Palacio. Gender identity: Male. Gender of partner(s): Male. Age of first sexual intercourse: 17. Sexually Active: No. Not sexually active. Marcelino Flores " social history reviewed E&M reviewed today Marcelino Bruceo " sexual orientation Palacio Dylon E Aaron " is there any chance that you could be ? No Dylon E Aaron " assessment of health literacy ([employer] [facility] 2014 Standards, 3C10) Adequate Dylon E Aaron " passive cigarette smoke exposure No Dylon E Aaorn " smoking status current every day smoker Dylon E Aaron " alcohol use Currently Dylon E Aaron [...] very busy though". Not homeless. Born in [facility]. City: [place]. State: [place]. Lives w/ mom and step-father in [place] [id number] cats. Unemployed since November 2016. Highest education level: bachelor's degree. Not in workforce. Not on disability. 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 Sex at : Male. Sexual orientation: [...] very busy though". Not homeless. Born in [facility]. City: [place]. State: [place]. Lives w/ mom and step-father in [address] Unemployed since November 2016. Highest education level: bachelor's degree. Not in workforce. Not on disability. 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 Sex at : Male. Sexual orientation: Palacio. Gender identity: Male. Gender of partner(s): Male. Age of first sexual intercourse: 17. Sexually Active: No. Not sexually active. Dorothy Pineda " social history reviewed E&M reviewed today Dorothy Pineda " assessment of health literacy ([facility] 2014 Standards, 3C10) Adequate Dorothy Pineda [...] very busy though". Not homeless. Born in [facility]. City: [place]. State: [place]. Lives w/ mom and step-father in [place], 2 cats. Unemployed since November 2016. Highest education level: bachelor's degree. Not in workforce. Not on disability. 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 Sex at : Male. Sexual orientation: Palacio. Gender identity: Male. Gender of partner(s): Male. Age of first sexual intercourse: 17. Sexually Active: No. Not sexually active. Cliff Jackson " social history reviewed E&M reviewed today Cliff Jackson " is there any chance that you could be ? No Cliff Jackson " assessment of health literacy ([facility] 2014 Standards, 3C10) Adequate Cliff Jackson [...] that you could be ? No Kari rCawford " Exercise Program Referral T Kari Crawford [...] very busy though". Not homeless. Born in [facility]. City: [place]. State: [place]. Lives w/ mom and step-father in [place], 2 cats. Unemployed since November 2016. Highest education level: bachelor's degree. Not in workforce. Not on disability. 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 Sex at : Male. Sexual orientation: Palacio. Gender identity: Male. Gender of partner(s): Male. Age of first sexual intercourse: 17. Sexually Active: No. Not sexually active. Cliff Jackson " social history reviewed E&M reviewed today Cliff Jackson " is there any chance that you could be ? No Cliff Jackson " assessment of health literacy ([facility] 2014 Standards, 3C10) Adequate Cliff Jackson " passive cigarette smoke exposure Yes Cliff Jackson " smoking status current every day smoker Cliff Jackson " smoking, advice to quit Yes Sandra Monge " Exercise Program Referral T Sandra Monge " Weight Management Counseling Provided T Sandra Monge " Nutrition intervention T Sandra Monge " drug use, illicit Previously Angi Prospect " alcohol use Currently Angi Juan " [...] very busy though". Not homeless. Born in [facility]. City: [place]. State: [place]. Lives w/ mom and step-father in [place] [id number] cats. Unemployed since November 2016. Highest education level: bachelor's degree. Not in workforce. Not on disability. 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 Sex at : Male. Sexual orientation: Palacio. Gender identity: Male. Gender of partner(s): Male. Age of first sexual intercourse: 17. Sexually Active: No. Not sexually active. Angi Martinez " social history reviewed E&M reviewed today Angi Martinez " sexual orientation Palacio Angi Martinez " is there any chance that you could be ? No Angi Martinez " assessment of health literacy ([facility] 2014 Standards, 3C10) Adequate Angi Martinez [...] very busy though". Not homeless. Born in [facility]. City: [place]. State: [place]. Lives w/ mom and step-father in [place], [facility]. Unemployed since November 2016. Highest education level: bachelor's degree. Not in workforce. Not on disability. 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 Sex at : Male. Sexual orientation: Palacio. Gender identity: Male. Gender of partner(s): Male. Age of first sexual intercourse: 17. Sexually Active: No. Not sexually active. Angi Martinez " social history reviewed E&M reviewed today Angi Martinez " sexual orientation Palacio Angi Martinez " is there any chance that you could be ? No Angi Hessrod " assessment of health literacy ([facility] 2014 Standards, 3C10) Adequate Angi Hessrod " passive cigarette smoke exposure Yes Angi Martinez " smoking status current every day smoker Angi Martinez sexual orientation Palacio Alexandra Hoffmann sexual orientation Palacio Jazmin Bullard Exercise Program Referral Mendez Monge " Weight Management Counseling Provided T [...] very busy though". Not homeless. Born in [facility]. City: [place]. State: [place]. Lives w/ mom and step-father in [place], 2 cats. Unemployed since November 2016. Highest education level: bachelor's degree. Not in workforce. Not on disability. 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 Sex at : Male. Sexual orientation: [...] could be ? No Michelleadam Hill " assessment of health literacy ([facility] 2014 Standards, 3C10) Adequate Michelle Hill " [...] Elizabeth Kessler " assessment of health literacy ([facility] 2014 Standards, 3C10) Adequate Elizabeth Kessler [...] " smoking status current every day smoker Michelleadam Hill " assessment of health literacy ([facility] 2014 Standards, 3C10) Adequate Michelle Sergio [...] Monge " drug use, illicit Previously Deepika Chen " alcohol use Currently Deepika Gustavo [...] very busy though". Not homeless. Born in [facility]. City: [place]. State: [place]. Lives w/ mom and step-father in [place], 2 cats. Unemployed since November 2016. Highest education level: bachelor's degree. Not in workforce. Not on disability. 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 Sex at : Male. Sexual orientation: [...] Deepika Chen " assessment of health literacy ([facility] 2014 Standards, 3C10) Adequate Deepika Chen Exercise [...] very busy though". Not homeless. Born in [facility]. City: [place]. State: [place]. Lives w/ mom and step-father in [place], 2 cats. Unemployed since November 2016. Highest education level: bachelor's degree. Not in workforce. Not on disability. 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 Sex at : Male. Sexual orientation: [...] smoking status current every day smoker Deepika Cehn " assessment of health literacy ([facility] 2014 Standards, 3C10) Adequate Deepika Chen Exercise [...] very busy though". Not homeless. Born in [facility]. City: [place]. State: [place]. Lives w/ mom and step-father in [place], cats. Unemployed since November 2016. Highest education level: bachelor's degree. Not in workforce. Not on disability. 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 Sex at : Male. Sexual orientation: [...] Deepika Chen " assessment of health literacy ([facility] 2014 Standards, 3C10) Adequate Deepika Chen social [...] very busy though". Not homeless. Born in [facility]. City: [place]. State: [place]. Lives w/ mom and step-father in [place], cats. Unemployed since November 2016. Highest education level: bachelor's degree. Not in workforce. Not on disability. 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 Sex at : Male. Sexual orientation: Palacio. Gender identity: Male. Gender of partner(s): Male. Age of first sexual intercourse: 17. Sexually Active: No. Not sexually active. Jasper Bobo" drug use, illicit Previously Jasper Bobo" alcohol use, number maximum drinks per occasion 4-5 beers Jasper Bobo" alcohol use, frequency daily Jasper Bobo" alcohol use Currently Jasper Bobo" current cigarette packs per day 1-1.5 Jasper [...] assessment Lives w/ mom and step-father in [place], 2 cats. Jasper Bobo " social history reviewed E&M reviewed today Sandra Monge" social history E&M Single. Spouse/Partner/Significant Other: n/a. Family is aware and supportive. Not homeless. Born in [facility]. City: [place]. State: [place]. Lives in [facility] and [facility]. Not employed. Highest education level: bachelor's [...] Sandra Monge" home/family situation, assessment Lives in [facility] and stepdad in [facility]. Sanrda Monge" family support Family is aware and supportive. Sandra Mariposa " smoking, advice to quit Yes Sandra Monge " assessment of health literacy ([facility] 2014 Standards, 3C10) Adequate Sandra Monge " Exercise Program Referral T Sandra Monge " Weight Management Counseling Provided T Sandra Monge " Nutrition intervention T Sandra Monge " drug use, illicit Previously Michelle Sergio " alcohol use 4 to 5 beers a day Michelle Hill " sexual orientation Palacio Michelle Hill " sex at Male Michelle Sergio " patient considered to be homeless No [...] Questionnaire - Question 1 0 Dorothy Pineda mental status assessment, judgment fair Marcelino Leoz [...] motor activity normal gait, normal posture Marcelino Brucegurwinder " behavior (mental status exam) appropriate, candid, cooperative, good eye contact, polite, responsive Marcelino Farahjudah " mental appearance (mental status exam) adequate hygiene, appropriate dress, looks like stated age, neat, smells of heavy cigarette smoke/tobacco Marcelino Farahjudah assessment of judgment and insight E&M intact [...] normal intensity, normal range Garettshan Samiuddin " mood (mental status exam) pleasant Garettshan Samiuddin " mental status assessment, speech activity normal flow, normal pace, normal pressure, normal rate, normal tone, normal volume, spontaneous, loud Garettshan Samiuddin " mental status assessment, motor activity normal gait, normal posture Zian Samiuddin " behavior (mental status exam) appropriate, candid, cooperative, good eye contact, polite, responsive Garettan Samiuddin " mental appearance (mental status exam) adequate hygiene, appropriate dress, looks like stated age, neat Garettmaritza Chamberlainabeludzenon assessment of judgment and insight E&M intact [...] Michelle Hill mental status assessment, judgment fair Garettreinaan Samiuddin " insight (mental status exam) fair Garettan Bulmaroiuddin " Mental Status Exam: intelligence adequate fund of information, intact memory processes, oriented to person, oriented to place, oriented to time, oriented to situation, oriented to reality Buck Chamberlainiuddin " hallucinations none Garettan Bulmaroiuddin " thought content (mental status exam) (E&M) lucid Buck Keatingudzenon " mental status assessment, process able to abstract, goal-directed, logical Garettan Bulmaroiuddin " mental status assessment, sensorium alert, attentive, clear Garettan Bulmaroiuddin " affect (mental status exam) congruent, euthymic, normal intensity, normal range Garettshan Samiuddin " mood (mental status exam) pleasant Maryan Bulmaroiuddin " mental status assessment, speech activity normal flow, normal pace, normal pressure, normal rate, normal tone, normal volume, spontaneous, loud Garettshan Samiuddin " mental status assessment, motor activity normal gait, normal posture Garettan Bulmaroiuddin " behavior (mental status exam) appropriate, candid, cooperative, good eye contact, polite, responsive Maryan Samiuddin " mental appearance (mental status exam) adequate hygiene, appropriate dress, looks like stated age, neat Buck Chamberlainiuddin mental status assessment, judgment fair Zishan Samiuddin " insight (mental status exam) fair Garettshan Samiuddin " Mental Status Exam: intelligence adequate fund of information, intact memory processes, oriented to person, oriented to place, oriented to time, oriented to situation, oriented to reality Zishan Samiuddin " hallucinations none Zishan Samiuddin " thought content (mental status exam) (E&M) lucid Garettshan Samiuddin " mental status assessment, process able to abstract, goal-directed, logical Zishan Samiuddin " mental status assessment, sensorium alert, attentive, clear Zishan Samiuddin " affect (mental status exam) congruent, euthymic, normal intensity, normal range Garettshan Samiuddin " mood (mental status exam) pleasant Garettshan Samiuddin " mental status assessment, speech activity normal flow, normal pace, normal pressure, normal rate, normal tone, normal volume, spontaneous, loud Zishan Samiuddin " mental status assessment, motor activity normal gait, normal posture Garettshan Bulmaroiuddin " behavior (mental status exam) appropriate, candid, cooperative, good eye contact, polite, responsive Garettshan Bulmaroiuddin " mental appearance (mental status exam) adequate hygiene, appropriate dress, looks like stated age, satya Chamberlainiudzenon mood (mental status exam) pleasant Garettshan Samiuddin " anxiety worry a lot, sleep disturbance Zishmaritza Chamberlainiuddin " mental status assessment, judgment fair Garettshan Bulmaroiuddin " insight (mental status exam) fair Garettshan Samiuddin " Mental Status Exam: intelligence adequate fund of information, intact memory processes, oriented to person, oriented to place, oriented to time, oriented to situation, oriented to reality Zishan Samiuddin " hallucinations none Zishan Samiuddin " thought content (mental status exam) (E&M) lucid Garettshan Samiuddin " mental status assessment, process able to abstract, goal-directed, logical Zishan Samiuddin " mental status assessment, sensorium alert, attentive, clear Zishan Samiuddin " affect (mental status exam) congruent, euthymic, normal intensity, normal range Garettreinamaritza Ledesma " mental status assessment, speech activity normal flow, normal pace, normal pressure, normal rate, normal tone, normal volume, spontaneous, loud Garetteamon Keatingjagdeep " mental status assessment, motor activity normal gait, normal posture Garetteamon Chamberlainkaden " behavior (mental status exam) appropriate, candid, cooperative, good eye contact, polite, responsive Garetteamon Chamberlainkaden " mental appearance (mental status exam) adequate hygiene, appropriate dress, looks like stated age, neat Garetteamon Chamberlainkaden assessment of judgment and insight E&M intact [...] Disorder Questionnaire - Question 2 0 Deepika Chen" Generalized Anxiety Disorder Questionnaire - Question 1 0 Deepika Chen delusion No Jasper Bobo " mental status assessment, judgment fair Jasper Bobo " insight (mental status exam) fair Jasper Bobo " Mental Status Exam: intelligence adequate fund of information, intact memory processes, oriented to person, oriented to place, oriented to time, oriented to situation, oriented to reality Jasper Bobo " hallucinations none Jasper Bobo " thought content (mental status exam) (E&M) lucid Jasper Bobo " mental status assessment, process able to abstract, logical, circumstantial Jasper Bobo " mental status assessment, sensorium alert, attentive, clear Jasper Bobo " affect (mental status exam) congruent, normal intensity, normal range Jasper Bobo " mood (mental status exam) happy Jasper Bboo " mental status assessment, speech activity normal flow, normal pace, normal pressure, normal rate, normal tone, normal volume, spontaneous, loud Jasper Bobo " mental status assessment, motor activity normal gait, normal posture Jasper Bobo " behavior (mental status exam) appropriate, candid, cooperative, good eye contact, responsive Jasper Bobo " mental appearance (mental status exam) adequate hygiene, appropriate dress, looks like stated age, neat Jasper Bobo Generalized Anxiety Disorder Questionnaire - Question 2 0 Michelle Hill " Generalized Anxiety Disorder Questionnaire - Question 1 0 [facility] MEDICAL EQUIPMENT No Information Available FAMILY HISTORY No Information Available INSURANCE PROVIDERS Payer name Policy type / Coverage type Covered libertarian ID *Jasper White 0-100% Other [id number] Sliding Fee - Cat 1 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 Metabolic Panel (14) RPR, Rfx Qn RPR/Confirm TP CBC With Differential/Platelet CD4/CD8 Ratio Profile RNA, Real Time PCR (Graph) GenoSure PRIme(SM) RNA, Real Time PCR (Graph) [...] hypercalcemia - - Est Patient Detailed - 41348 Est Patient Detailed - 06475 Est Patient Exp Problem - 33587 Est Patient Exp Problem - 49770 Ofc Vst, Est Level III Est Patient Detailed - 34268 First Vx - Ix admin via ID IM or jet injects without counseling by physician Menactra Intramuscular Injectable Vision Vaccines Ordered - Print Consent/Declination Forms Ofc Vst, Est Level IV Xray - Chest - 2 Views - InHouse Handling of specimen for transfer Venipuncture Est Patient Detailed - 17840 Dispensing Visit (UNLIVSTED OPHTHALMOLOGICAL SERVICE/PROCEDURE) INFLUENZA VACCINE QUADRIVALENT 3 YRS PLUS IM Pneumovax Vaccine PPSV23 Admin of Vaccine - Injection - Each Add'l Admin of Vaccine - Injection - 1 Est Patient Detailed - 28871 Progressive lens, per lens Frames, purchases Est Patient Comprehensive Opth - 94449 New Patient Intermediate Opth - 76459 Est Patient Detailed - 12236 Est Patient Detailed - 20196 Est Patient Detailed - 67614 Est Patient Detailed - 33552 Est Patient Exp Problem - 99087 Est Patient Detailed - 43703 Diagnostic evaluation with medical - 83110 INFLUENZA VACCINE QUADRIVALENT 3 YRS PLUS IM Admin of Vaccine - Injection - 1 Est Patient Detailed - 16951 Est Patient Detailed - 89106 Prevnar (PCV13) IM TDAP Admin of Vaccine - Injection - Each Add'l Admin of Vaccine - Injection - 1 Est Patient Well Exam (40 - 64 Yrs) - 35818 Primary [facility] - Psychiatry Diagnostic evaluation (no medical) - 68665 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 Primary [facility] Service [facility] Xray - Chest - PA & Lat - InHouse Primary Care Service [facility] Handling of specimen for transfer Venipuncture Integrated Behavioral Health Assessment (IBH) New Patient Well Exam (40 - 64 Yrs) - 42110 Handling of specimen for transfer Venipuncture HISTORY [...] lens Jazmin Bullard completed Frames, purchases Jazmin Azadi Frame #1111 (Pd 60.00) completed Est Patient Comprehensive Opt - 80221 Edgard Martin completed New Patient Intermediate Opt - 29467 Chriss Martin completed Diagnostic evaluation with medical - 71259 Buck Ledesma completed Primary Care Service [facility] Maximus Yancey Time spent with patient: 30 completed Diagnostic evaluation (no medical) - 89680 Jasper Bobo completed 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
--- OUTSIDE RECORDS SUMMARY | 2020-02-03 02:26 | XMS REPORT ---
Author Author Admin, [place] Organization Unknown Address Unknown Phone Unavailable PROBLEMS [...] Diagnosis - Ambulatory Encounter Marcelino Breanneoz Callizo Rosy Ghosh [facility] Behavioral Health UNK - Ambulatory Encounter Nelairina Lanza MedAdherence, [facility] Adult Medicine UNK - Ambulatory Encounter Nelairina Blackh [facility] Adult Medicine UNK - Ambulatory Encounter Nelairina Pineda [facility] Adult Medicine UNK - Ambulatory Encounter Nelairina Lanza MedAdherence, [facility] Adult Medicine UNK - Ambulatory Encounter Marcelino Leoz Callizo [facility] Behavioral Health UNK - Ambulatory Encounter Marcelino Leoz Callizo Thida Santos [facility] Behavioral Health UNK - Ambulatory Encounter Nelairina Blackh LinkLogic [facility] Adult Medicine UNK - Ambulatory Encounter Nelairina Canasnth [facility] Adult Medicine UNK - Ambulatory Encounter Nelairina Blackh Nela Walker [facility] Adult Medicine Abscess, axilla, right - Ambulatory Encounter Sandra Lanza MedAdherence, [facility] Adult Medicine UNK - Ambulatory Encounter Dorothy Blackh Nela Alberts [facility] [place] [facility] UNK - Ambulatory Encounter Isi Bliss [facility] Contact Center UNK - Ambulatory Encounter Buck Arringtons Isi Isbell [facility] Contact Center UNK - Ambulatory Encounter Nela Canasnth [facility] Adult Medicine UNK - Ambulatory Encounter Nelairina Hancockikanth [facility] Adult Medicine UNK - Ambulatory Encounter Nelairina Blackh [facility] Adult Medicine UNK - Ambulatory Encounter Nela Pineda [facility] Adult Medicine Screening for hypercholesterolemiaImmunization updateFlu shotHx Bronchitis acute with bronchospasmHyponatremiaHyperkalemiaHypercalcemia - Ambulatory Encounter Rinal Recinos [facility] Adult Medicine UNK - Ambulatory Encounter Rinal Recinoscaryl Jackson [facility] Adult Medicine UNK - Ambulatory Encounter Rinal Recinos [facility] Adult Medicine UNK - Ambulatory Encounter Mare Carbajal [facility] Adult Medicine UNK - Ambulatory Encounter Dorothy Nash [facility] Contact Center UNK - Ambulatory Encounter Rinal Recinos [facility] Adult Medicine UNK - Ambulatory Encounter Cliff Arnold [facility] Adult Medicine UNK - Ambulatory Encounter Nelairina lBackh [facility] Adult Medicine UNK - Ambulatory Encounter Nelairina Canasnth [facility] Adult Medicine UNK - Ambulatory Encounter Dorothy Travisirina Canasbtehanykirill Nela Santikendraanthony Alberts [facility] Contact Center UNK - Ambulatory Encounter Nela Canasbethanykirill Rondon Alexandre [facility]Logic LM Adult Medicine UNK - Ambulatory Encounter Martha Stallworth [facility] Public Health Services UNK - Ambulatory Encounter Nela Canasbethanykirill Rondon Alexandre [facility] Adult Medicine UNK - Ambulatory Encounter Nela Canasbethanykirill Rondon Santikendraanthony Crawford Marthaиван GarciaSimons [facility] Adult Medicine HIV infectionHepatitis A immunityHepatitis B immunity - Ambulatory Encounter Cliff Napier [facility] Contact Center UNK - Ambulatory Encounter Mare Carbajal [facility] Adult Medicine UNK - Ambulatory Encounter Rinal Recinoscaryl Napier [facility] Adult Medicine UNK - Ambulatory Encounter Cliff [...] Medicine Osteopenia - Ambulatory Encounter Cliff Jackson [facility] Adult Medicine UNK - Ambulatory Encounter Jeromy Recinos LM Adult Medicine UNK - Ambulatory Encounter Destinial Jorje Jackson [facility] Adult Medicine UNK - Ambulatory Encounter Cliff Jackson [facility] Adult Medicine UNK - Ambulatory Encounter Cliff Jackson LinkLogic [facility] Adult Medicine UNK - Ambulatory Encounter Sandra Monge [facility]Logic Jeromy Recinos [facility] Adult Medicine UNK - Ambulatory Encounter Sandra Monge LinkLogic Meghna Arnold [facility] Adult Medicine UNK - Ambulatory Encounter Fax Status [facility] UNK - Ambulatory Encounter Fax Status [facility] LegBob [facility] UNK - Ambulatory Encounter Fax Status Link[facility]ic [facility] Services UNK - Ambulatory Encounter Fax Status [facility]Log[facility] LegBob [facility] UNK - Ambulatory Encounter Mare Murillo [facility] Adult Medicine UNK - Ambulatory Encounter Destinial Recinos LinkLogkendrick Carbajal [facility] Adult Medicine UNK - Ambulatory Encounter Jeromy Recinos LinkLogkendrick [facility] Adult Medicine UNK - Ambulatory Encounter Meghna Nash [facility] Adult Medicine UNK - Ambulatory Encounter Fax Status [facility]Logic [facility]Bob [facility] UNK - Ambulatory Encounter Fax Status [facility] UNK - Ambulatory Encounter Sandra Monge [facility] Adult Medicine UNK - Ambulatory Encounter Sandra Nash [facility] Adult Medicine UNK - Ambulatory Encounter Lashaun Monge [facility] UNK - Ambulatory Encounter [facility] UNK - Ambulatory Encounter Rinshara Recinos [facility] Adult Medicine UNK - Ambulatory Encounter Jeromy Recinos Cliff Jackson [facility] Adult Medicine UNK - Ambulatory Encounter Cliff Jackson [facility] Adult Medicine UNK - Ambulatory Encounter Meghna Nash [facility] Adult Medicine UNK - Ambulatory Encounter Bethanyjaswant Manuel [facility] Adult Medicine UNK - Ambulatory Encounter Fax Status [facility] UNK - Ambulatory Encounter Fax Status [facility] UNK - Ambulatory Encounter Sandra Monge LinkLogic [facility] Adult Medicine UNK - Ambulatory Encounter Sandra Monge [facility] Adult Medicine UNK - Ambulatory Encounter Sandra Quiles [facility] Adult Medicine Increased transaminase level - Ambulatory Encounter [facility] UNK - Ambulatory Encounter Sandra Mcgowan [facility] Adult Medicine UNK - Ambulatory Encounter Sandra GoldsteinLogkendrick LM Adult Medicine UNK - Ambulatory Encounter Sandra Monge [facility] Adult Medicine UNK - Ambulatory Encounter Sandra Martinez [facility] Adult Medicine Hx Bronchitis acute with bronchospasmHyponatremiaHyperkalemiaHypercalcemia - Ambulatory Encounter Sandra Lanza MedAdherence, [facility] Adult Medicine UNK - Ambulatory Encounter Sandra Lanza MedAdherence, [facility] Adult Medicine UNK - Ambulatory Encounter Cliff Jackson [facility] Adult Medicine UNK - Ambulatory Encounter Sandra Monge [facility] Adult Medicine UNK - Ambulatory Encounter Sandra Monge LinkLogic Cliff Jackson [facility] Adult Medicine UNK - Ambulatory Encounter Sandra Lanza MedAdherence, [facility] Adult Medicine UNK - Ambulatory Encounter Sandra Lanza MedAdherence, [facility] Adult Medicine UNK - Ambulatory Encounter Boni Cristina [facility] Public Health Services UNK - Ambulatory Encounter Jazmin Bullard [facility] Vision UNK - Ambulatory Encounter Jazmin Bullard [facility] Vision UNK - Ambulatory Encounter Sandra Monge LinkLogic [facility] Adult Medicine UNK - Ambulatory Encounter Sandra Monge LinkLogic [facility] Adult Medicine UNK - Ambulatory Encounter Sandra Monge [facility] Adult Medicine UNK - Ambulatory Encounter Sandra Martinez [facility] Adult Medicine Onychomycosis, toenailsImmunization update - Ambulatory Encounter Jazmin Bullard [facility] Vision UNK - Ambulatory Encounter Edgard Martin [facility] Vision UNK - Ambulatory Encounter Edgard Martin [facility] Vision UNK - Ambulatory Encounter Edgard Morris Hoffmann [facility] Vision SPECIAL SCREENING EXAMINATION OTH SPEC VIRAL DZ - Ambulatory Encounter Chriss Martin [facility] Vision UNK - Ambulatory Encounter Chrissjesus Martin [facility] Vision UNK - Ambulatory Encounter Chriss Martin [facility] Vision UNK - Ambulatory Encounter Chrissjesus Bullard [facility] Vision Myopia - OURegular astigmatism, bilateralPresbyopia - OU - Ambulatory Encounter Sandra Monge LinkLogkendrick [facility] Adult Medicine UNK - Ambulatory Encounter Sandra Vargas [facility] Adult Medicine UNK - Ambulatory Encounter Sandra Vargas [facility] Adult Medicine UNK - Ambulatory Encounter Sandra Yancey MedAdherence [facility] Adult Medicine UNK - Ambulatory Encounter Sandra Lanza MedAdherence, [facility] Adult Medicine UNK - Ambulatory Encounter Sandra Lanza MedAdherence, [facility] Adult Medicine UNK - Ambulatory Encounter Sandra Lanza MedAdherence, [facility] Adult Medicine UNK - Ambulatory Encounter Sandra Lanza MedAdherence, [facility] Adult Medicine UNK - Ambulatory Encounter Sandra Lanza MedAdherence, [facility] Adult Medicine UNK - Ambulatory Encounter Sandra Lanza MedAdherence, [facility] Adult Medicine UNK - Ambulatory Encounter Khloe Mckeon [facility] UNK - Ambulatory Encounter Khloe Lee [facility] UNK - Ambulatory Encounter Amaury Nath [facility] Adult Medicine UNK - Ambulatory Encounter Amaury Nath [facility] Adult Medicine UNK - Ambulatory Encounter Sandra Monge [facility] Adult Medicine UNK - Ambulatory Encounter Sandra Monge [facility] Adult Medicine UNK - Ambulatory Encounter Sandra Hill [facility] Adult Medicine Hx Latent tuberculosis, s/p INH/B6Hx Bronchitis acute with bronchospasm - Ambulatory Encounter Buck Ledesma [facility] Behavioral Health UNK - Ambulatory Encounter Buck GoldsteinLogkendrick [facility] Behavioral Health UNK - Ambulatory Encounter Sandra Vargas [facility] Adult Medicine UNK - Ambulatory Encounter Sandra Vargas [facility] Adult Medicine UNK - Ambulatory Encounter Sandra Bush [facility] UNK - Ambulatory Encounter Buck Bulmarokaden [facility] Behavioral Health UNK - Ambulatory Encounter Garetteamon Chamberlainkaden LinkLogic [facility] Behavioral Health UNK - Ambulatory Encounter Marymaritza Chamberlainkaden Luiiega [facility] Contact Center UNK - Ambulatory Encounter Sandra Castro [facility] UNK - Ambulatory Encounter Sandra Monge LinkLogic Leny Nicol Catsro [facility] Adult Medicine UNK - Ambulatory Encounter Sandra Monge [facility] Adult Medicine UNK - Ambulatory Encounter Sandra Monge [facility] Adult Medicine UNK - Ambulatory Encounter Sandra Kessler [facility] Adult Medicine UNK - Ambulatory Encounter Sandra Monge [facility] Adult Medicine UNK - Ambulatory Encounter Sandra GoldsteinLogic [facility] Adult Medicine UNK - Ambulatory Encounter Nancy [facility] Services UNK - Ambulatory Encounter Khloe Lee [facility] UNK - Ambulatory Encounter Nancy GoldsteinLogic [facility] Adult Medicine UNK - Ambulatory Encounter Buck Bulmarokaden Burris [facility] Behavioral Health UNK - Ambulatory Encounter Sandra Monge [facility] Adult Medicine UNK - Ambulatory Encounter Sandra Hill [facility] Adult Medicine Hx Latent tuberculosis, s/p [id number] - Ambulatory Encounter Sandra Monge [facility]Logic [facility] Adult Medicine UNK - Ambulatory Encounter Sandra Boss [facility] Adult Medicine UNK - Ambulatory Encounter Buck Clarke [facility] UNK - Ambulatory Encounter Buck Ledesma [facility] Behavioral Health UNK - Ambulatory Encounter Buck Ledesma LinkLogic [facility] Behavioral Health UNK - Ambulatory Encounter Sandra Monge LinkLogic [facility] Adult Medicine UNK - Ambulatory Encounter Buck Caro [facility] Behavioral Health UNK - Ambulatory Encounter Buck Burris [facility] Behavioral Health UNK - Ambulatory Encounter Lashaun Mckeon [facility] UNK - Ambulatory Encounter [facility] UNK - Ambulatory Encounter Buck Ledesma [facility] Behavioral Health UNK - Ambulatory Encounter Buck Bliss [facility] Behavioral Health UNK - Ambulatory Encounter Sandra Monge [facility]Log[facility] Adult Medicine UNK - Ambulatory Encounter Sandra Monge LM Adult Medicine UNK - Ambulatory Encounter Sandra Chen [facility] Adult Medicine Flu shot - Ambulatory Encounter Sandra Monge [facility]Logic LM Adult Medicine UNK - Ambulatory Encounter Sandra Chen LM Adult Medicine UNK - Ambulatory Encounter Sandra Monge [facility] Adult Medicine UNK - Ambulatory Encounter Sandra Monge Deepika Valentinoierrez [facility] Adult Medicine BMI < 20 - Ambulatory Encounter Sandra GoldsteinLogkendrick [facility] Adult Medicine UNK - Ambulatory Encounter Sandra Monge [facility] Services UNK - Ambulatory Encounter Sandra Monge [facility] Adult Medicine UNK - Ambulatory Encounter Sandra Hill Deepika Valentinoierrez [facility] Adult Medicine Immunization updateVitamin D deficiency - Ambulatory Encounter Sandra Monge [facility] Services UNK - Ambulatory Encounter Jason Gilliam [facility] UNK - Ambulatory Encounter Sandra Hill [facility] Adult Medicine UNK - Ambulatory Encounter [facility] Care Coordination Desktop [facility] Services UNK - Ambulatory Encounter Sandra Monge [facility] Adult Medicine COPDHx Latent tuberculosis, s/p INH/B6 - Ambulatory Encounter Sandra Kowalski [facility] Adult Medicine UNK - Ambulatory Encounter Maximus Yancey [facility] Pre Billing Specialist UNK - Ambulatory Encounter Maximus Yancey [facility] Pre Billing Specialist UNK - Ambulatory [facility]K - Ambulatory Encounter Sandra GoldsteinLogkendrick [facility] Adult Medicine UNK - Ambulatory Encounter Maximuskrys Yancey [facility] Pre Billing Specialist UNK - Ambulatory Encounter Sandra Mcgowan [facility] Adult Medicine UNK - Ambulatory Encounter Maximus Yancey [facility] Pre Billing Specialist UNK - Ambulatory Encounter Sandra Monge [facility] Adult Medicine UNK - Ambulatory Encounter Jasper Keller [facility] Behavioral Health DEPRESSIVE DISORDER, OTHER SPECIFIEDALCOHOL USE DISORDER, MODERATETOBACCO USE DISORDER, MODERATE - Ambulatory Encounter Sandra Jamison [facility] Adult Medicine - Ambulatory Encounter Sandra Monge LinkLogkendrick [facility] Adult Medicine UNK - Ambulatory Encounter Sandra Day [facility] Adult Medicine Screening for hypercholesterolemia - Ambulatory Encounter Adrian Cristina [facility] Health Services UNK - Ambulatory Encounter Sandra [facility]ge [facility] Vision UNK VITAL SIGNS No Information Available [...] creatinine, urine, 24 hour 2076 mg/24h LinkLogic [id number] High " creatinine, random, urine 38.1 mg/dL [...] creatinine, urine, 24 hour 1562 mg/24h LinkLogic [id number] " creatinine, random, urine 25.4 mg/dL LinkLogic [...] LinkLogic 12.0-35.5 High " absolute CD8 891 LinkLog [phone] " T-helper cells (CD4) as percent of blood lymphocytes 45.2 % [facility] 30.8-58.5 " T-helper cells (CD4) count 859 /UL [facility] [phone] vitamin D 25-hydroxy, serum 35.4 ng/mL LinkLog 30.0-100.0 " rapid plasma reagin antibody, serum Non Reactive LinkLog Non Reactive " HIV-1RNA, serum, by PCR, quantitative <20 copies/mL [facility] " LDL cholesterol, serum 109 mg/dL LinkLogic [...] 13.0-17.7 " erythrocyte (RBC) count 3.83 X10E6/UL LinkLog 4.14-5.80 Low " leukocyte count, blood 8.5 [...] rapid plasma reagin antibody, serum Non Reactive [facility] Non Reactive " HIV-1RNA, serum, by [...] >3.0 " B-12, serum 471 pg/mL LinkLogic [phone]/04/21 human leukocyte antigen B57 negative Sandra Monge [...] Vaccine Dose Lot Number Status riri klein [facility] [id number] sanofi pasteur 0.5 mL [id number] completed HISTORY OF MEDICATION USE Medication Instructions Dates Provider Comments HYPERCARE 15 % EXTERNAL SOLUTION Apply once daily as needed Nela Shrikanth PROZAC 20 MG ORAL CAPSULE Take one capsule daily. Marcelino Jefferson Callizo PIFELTRO 100 MG ORAL TABLET Take 1 tablet orally once daily Nela Blackh ONDANSETRON 4 MG ORAL TABLET DISINTEGRATING 1 By Mouth every 8 hours as needed for nausea/vomiting. Sandra Monge PREZCOBIX 800-150 MG ORAL TABLET 1 tab by mouth daily with food - Nela Schroeder FENOFIBRATE 48 MG ORAL TABLET tk 1 t By Mouth Every Day - Nela Hancockikabethanyh B12 1GM DAILY Sandra Monge AZITHROMYCIN 250 [...] ONE TABLET BY MOUTH ONCE DAILY Nela Shrikanth DESCOVY 200-25 MG ORAL TABLET 1 tab by mouth daily with food - Nela Shrikanth PROZAC 40 MG ORAL CAPSULE 1 By Mouth Every Day - Sandra Donovanek DEON D3 1,000 IUS ONE A DAY Sandra Mariposa PYRIDOXINE HCL 100 MG ORAL TABLET 1 By Mouth Every Day for 9 mos. STOP DATE IS 01/17/18 - Sandra Mariposa ISONIAZID 300 MG ORAL TABLET 1 By [...] Value Provider drug use, illicit Previously Marcelino Flores " alcohol use Currently Marcelino Flores [...] busy though". Not homeless. Born in [facility]. City: [place]. State: [place]. Lives w/ mom and step-father in [place], 2 cats. Unemployed since November 2016. Highest education level: bachelor's degree. Not in workforce. Not on disability. 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 Bachelor's degree in [place] [employer] at [employer]. Sex at : Male. Sexual orientation: Palacio. Gender identity: Male. Gender of partner(s): Male. Age of first sexual intercourse: 17. Sexually Active: No. Not sexually active. Marcelino Li Flores " social history reviewed E&M reviewed today Marcelino Li Callizo drug use, illicit Previously Dorothy Pineda " [...] busy though". Not homeless. Born in [facility]. City: [place]. State: [place]. Lives w/ mom and step-father in [place], cats. Unemployed since November 2016. Highest education level: bachelor's degree. Not in workforce. Not on disability. 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 Bachelor's degree in [place] Literature at [employer]. Sex at : Male. Sexual orientation: Palacio. Gender identity: Male. Gender of partner(s): Male. Age of first sexual intercourse: 17. Sexually Active: No. Not sexually active. Dorothy Pineda " social history reviewed E&M reviewed today Dorothy Pineda " assessment of health literacy ([facility] 2014 Standards, 3C10) Adequate Dorothy Pineda " passive cigarette smoke exposure No Dorothy Pineda " smoking status current every day smoker Dorothy Pineda drug use, illicit Previously Marcelino Leolga Callizo " alcohol use Currently Marcelino Leoz Callizo " smoking status current every day smoker Marcelino Leoz Callizo " social history E&M Single. Single. Parents when pt was age 16, mother and father both remarried. Relationship with father "I love him but don't like him... we talk on phone 1x a week". Relationship with mother and step-father "perfect and very good". One younger brother, "get along well, he is very busy though". Not homeless. Born in [facility]. City: [place]. State: [place]. Lives w/ mom and step-father in [place], 2 cats. Unemployed since November 2016. Highest education level: bachelor's degree. Not in workforce. Not on disability. 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 Bachelor's degree in [place] at [employer]. Sex at : Male. Sexual orientation: Palacio. Gender identity: Male. Gender of partner(s): Male. Age of first sexual intercourse: 17. Sexually Active: No. Not sexually active. Marcelino Flores " social history reviewed E&M reviewed today Marcelino Flores " sexual orientation Palacio Dylon Walker " is there any chance that you could be ? No Dylon Walker " assessment of health literacy ([facility] 2014 Standards, 3C10) Adequate Dylon Walker [...] busy though". Not homeless. Born in [facility]. City: [place]. State: [place]. Lives w/ mom and step-father in [place], cats. Unemployed since November 2016. Highest education level: bachelor's degree. Not in workforce. Not on disability. 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 Bachelor's degree in [place] at [employer]. Sex at : Male. Sexual orientation: Palacio. [...] PM Apurva Isbell drug use, illicit Previously Dorothychanda Pineda " alcohol use Currently Dorothychanda Pineda " social history E&M Single. Single. Parents when pt was age 16, mother and father both remarried. Relationship with father "I love him but don't like him... we talk on phone 1x a week". Relationship with mother and step-father "perfect and very good". One younger brother, "get along well, he is very busy though". Not homeless. Born in [facility]. City: [place]. State: [place]. Lives w/ mom and step-father in [place], 2 cats. Unemployed since November 2016. Highest education level: bachelor's degree. Not in workforce. Not on disability. 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 Bachelor's degree in [place] Literature at [employer]. Sex at : Male. Sexual orientation: Palacio. Gender identity: Male. Gender of partner(s): Male. Age of first sexual intercourse: 17. Sexually Active: No. Not sexually active. Dorothy Pineda " social history reviewed E&M reviewed today Dorothychanda Pineda " assessment of health literacy ([facility] Standards, 3C10) Adequate Dorothy Edwin " passive cigarette smoke exposure No Dorothy Edwin " smoking status current every day smoker Dorothy Pineda drug use, illicit Previously Cliff Jackson " alcohol use Currently Sheebarachell Jackson " social history E&M Single. Single. Parents when pt was age 16, mother and father both remarried. Relationship with father "I love him but don't like him... we talk on phone 1x a week". Relationship with mother and step-father "perfect and very good". One younger brother, "get along well, he is very busy though". Not homeless. Born in [facility]. City: [place]. State: [place]. Lives w/ mom and step-father in [place], 2 cats. Unemployed since November 2016. Highest education level: bachelor's degree. Not in workforce. Not on disability. 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 Bachelor's degree in [place] Literature at [employer]. Sex at : Male. Sexual orientation: Palacio. Gender identity: Male. Gender of partner(s): Male. Age of first sexual intercourse: 17. Sexually Active: No. Not sexually active. Cliff Jackson " social history reviewed E&M reviewed today Cliff Jackson " is there any chance that you could be ? No Cliff Jackson " assessment of health literacy ([facility] 2014 Standards, 3C10) Adequate Cliff Jackson [...] busy though". Not homeless. Born in [facility]. City: [place]. State: [place]. Lives w/ mom and step-father in [place], 2 cats. Unemployed since November 2016. Highest education level: bachelor's degree. Not in workforce. Not on disability. 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 Bachelor's degree in [place] Literature at [employer]. Sex at : Male. Sexual orientation: Palacio. Gender identity: Male. Gender of partner(s): Male. Age of first sexual intercourse: 17. Sexually Active: No. Not sexually active. Cliff Jackson" social history reviewed E&M reviewed today Cliff Jackson " is there any chance that you could be ? No Cliff Jackson " assessment of health literacy ([facility] 2014 Standards, 3C10) Adequate Cliff Jackson [...] busy though". Not homeless. Born in [facility]. City: [place]. State: [place]. Lives w/ mom and step-father in [place], 2 cats. Unemployed since November 2016. Highest education level: bachelor's degree. Not in workforce. Not on disability. 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 Bachelor's degree in [employer] Literature at [employer]. Sex at : Male. Sexual orientation: Palacio. Gender identity: Male. Gender of partner(s): Male. Age of first sexual intercourse: 17. Sexually Active: No. Not sexually active. Angi Martinez " social history reviewed E&M reviewed today Angi Martinez " sexual orientation Palacio Angi Martinez " is there any chance that you could be ? No Angi Martinez " assessment of health literacy ([facility] 2014 Standards, 3C10) Adequate Angi Martinez " passive cigarette smoke exposure Yes Angi Martinez " smoking status current every day smoker Angi Martinez time of call 12/02/2018 10:35 AM Adrianaga Cristina Exercise Program Referral Mendez Monge " Weight [...] busy though". Not homeless. Born in [facility]. City: [place]. State: [place]. Lives w/ mom and step-father in [place], 2 cats. Unemployed since November 2016. Highest education level: bachelor's degree. Not in workforce. Not on disability. 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 Bachelor's degree in [place]ese Literature at [employer]. Sex at : Male. Sexual orientation: Palacio. Gender identity: Male. Gender of partner(s): Male. Age of first sexual intercourse: 17. Sexually Active: No. Not sexually active. Angi Martinez " social history reviewed E&M reviewed today Angi Martinez " sexual orientation Palacio Angi Martinez " is there any chance that you could be ? No Angi Martinez " assessment of health literacy ([facility] 2014 Standards, 3C10) Adequate Angi Martinez " passive cigarette smoke exposure Yes Angi Martinez " smoking status current every day smoker Angi Juan sexual orientation Palacio Alexandra Shun sexual orientation [...] busy though". Not homeless. Born in [facility]. City: [place]. State: [place]. Lives w/ mom and step-father in [place], 2 cats. Unemployed since November 2016. Highest education level: bachelor's degree. Not in workforce. Not on disability. 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 Bachelor's degree in [place] Literature at [employer]. Sex at : Male. Sexual orientation: Palacio. [...] Michelle Hill " assessment of health literacy ([facility] 2014 Standards, 3C10) Adequate Michelle Hill " passive cigarette smoke exposure Yes Michelle Hill " smoking status current every day smoker Michelleadam Hill alcohol use Currently Elizabeth Kessler " drug use, illicit Previously Elizabeth Kessler " is there any chance that you could be ? No Elizabeth Kessler " sexual orientation Palacio Elizabeth Kessler " passive cigarette smoke exposure No Elizabeth Kessler " smoking status current every day smoker Elizabeth Kessler " assessment of health literacy ([facility] 2014 Standards, 3C10) Adequate Elizabeth Kessler [...] Michelle Sergio " assessment of health literacy ([facility] 2014 Standards, 3C10) Adequate Michelle Sergio [...] busy though". Not homeless. Born in [facility]. City: [place]. State: [place]. Lives w/ mom and step-father in [place], cats. Unemployed since November 2016. Highest education level: bachelor's degree. Not in workforce. Not on disability. 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 Bachelor's degree in [place] Literature at [employer]. Sex at : Male. Sexual orientation: Palacio. [...] Deepika Chen " assessment of health literacy ([facility] 2014 Standards, 3C10) Adequate Deepika Chen [...] busy though". Not homeless. Born in [facility]. City: [place]. State: [place]. Lives w/ mom and step-father in [place], 2 cats. Unemployed since November 2016. Highest education level: bachelor's degree. Not in workforce. Not on disability. 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 Bachelor's degree in [employer] Literature at [employer]. Sex at : Male. Sexual orientation: Palacio. Gender identity: Male. Gender of partner(s): Male. Age of first sexual intercourse: 17. Sexually Active: No. Not sexually active. Deepika Chen " social history reviewed E&M reviewed today Deepika Chen " drug use, illicit Previously Deepikabeatris Chen " alcohol use Currently Deepikabeatris Chen " sexual orientation Palacio Deepika Chen " passive cigarette smoke exposure No Deepika Gustavo " smoking, advice to quit Yes Deepika Chen " smoking status current every day smoker Deepika Valentinoierrez " assessment of health literacy ([facility] 2014 Standards, 3C10) Adequate Deepika Jessicarez Exercise Program Referral T Sandra Monge [...] busy though". Not homeless. Born in [facility]. City: [place]. State: [place]. Lives w/ mom and step-father in [place], 2 cats. Unemployed since November 2016. Highest education level: bachelor's degree. Not in workforce. Not on disability. 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 Bachelor's degree in [place]ese Literature at [employer]. Sex at : Male. Sexual orientation: Palacio. [...] Deepika Valentinoierrez " assessment of health literacy ([facility] 2014 Standards, 3C10) Adequate Deepika Valentinoierrez social history reviewed E&M reviewed today Jasper Bobo" social history E&M Single. Single. Parents when pt was age 16, mother and father both remarried. Relationship with father "I love him but don't like him... we talk on phone 1x a week". Relationship with mother and step-father "perfect and very good". One younger brother, "get along well, he is very busy though". Not homeless. Born in [facility]. City: [place]. State: [place]. Lives w/ mom and step-father in [place], cats. Unemployed since November 2016. Highest education level: bachelor's degree. Not in workforce. Not on disability. 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 Bachelor's degree in [place] Literature at [employer]. Sex at : Male. Sexual orientation: Palacio. [...] patient considered to be homeless No Jasper Jeramie " social history - sexual practice Not [...] assessment Lives w/ mom and step-father in [place], 2 cats. Jasper Bobo " social history reviewed E&M reviewed today Sandra Monge " social history E&M Single. Spouse/Partner/Significant Other: n/a. Family is aware and supportive. Not homeless. Born in [facility]. City: [place]. State: [place]. Lives in [facility] [place] [facility] in [place] in [facility]. Not employed. Highest education level: [...] Monge " home/family situation, assessment Lives in [facility] and stepdad in [facility]. Sandra Monge " family support Family is aware and supportive. Sandra Monge " smoking, advice to quit Yes Sandra Monge " assessment of health literacy ([facility] 2014 Standards, 3C10) Adequate Sandra Monge [...] neat, smells of heavy cigarette smoke/tobacco Marcelino Breanneoz Callizo assessment of judgment and insight E&M intact Nela Santiikabethanyh " mental status examination: orientation E&M oriented to time, place, and person Nela Wayneh " assessment of mood and affect E&M [...] E&M no depression, anxiety, or agitation Nela Santiikanth " Generalized Anxiety Disorder Questionnaire - Question [...] Question 1 0 Angi Hessrod assessment of judgment and insight E&M intact Sandra Mariposa " mental status examination: orientation E&M alert and oriented to person, place, and time Sandra Mariposa " assessment of mood and affect E&M good eye contact, normal affect Sandra Mariposa " Generalized Anxiety Disorder Questionnaire - Question 2 0 Angi Juan " Generalized Anxiety Disorder Questionnaire - Question 1 0 Angi Plessis assessment of mood and affect E&M good eye contact, normal affect Edgard Song Martin " mental status examination: orientation E&M [...] Kessler mental status assessment, judgment fair Buck Keatinguddin " insight (mental status exam) fair Garettmaritza Callie " Mental Status Exam: intelligence adequate fund of information, intact memory processes, oriented to person, oriented to place, oriented to time, oriented to situation, oriented to reality Marymaritza Chamberlainiuddin " hallucinations none Marymaritza Chamberlainiuddin " thought content (mental status exam) (E&M) lucid Buck Ledesma " mental status assessment, process able to abstract, goal-directed, logical Garettmaritza Keatinguddin " mental status assessment, sensorium alert, attentive, clear Garettmaritza Ledesma " affect (mental status exam) congruent, euthymic, normal intensity, normal range Garettmaritza Ledesma " mood (mental status exam) pleasant Buck Ledesma " mental status assessment, speech activity normal flow, normal pace, normal pressure, normal rate, normal tone, normal volume, spontaneous, loud Garettmaritza Bulmarokaden " mental status assessment, motor activity normal gait, normal posture Garettmaritza Ledesma " behavior (mental status exam) appropriate, candid, cooperative, good eye contact, polite, responsive Garettmaritza Bulmarokaden " mental appearance (mental status exam) adequate hygiene, appropriate dress, looks like stated age, neat Garettmaritza Chamberlainkaden assessment of judgment and insight E&M [...] Michelle Hill mental status assessment, judgment fair Garetteamon Chamberlainkaden " insight (mental status exam) fair Garettmaritza Callie " Mental Status Exam: intelligence adequate fund of information, intact memory processes, oriented to person, oriented to place, oriented to time, oriented to situation, oriented to reality Buck Bulmarokaden " hallucinations none Marymaritza Chamberlainkaden " thought content (mental status exam) (E&M) lucid Buck Ledesma " mental status assessment, process able to abstract, goal-directed, logical Garettan Samiuddin " mental status assessment, sensorium alert, [...] oriented to situation, oriented to reality Garettshan Samiuddin " hallucinations none Zishan Samiuddin " [...] " mental status assessment, judgment fair Zishan Samkaden " insight (mental status exam) fair [facility] " Mental Status Exam: intelligence adequate fund of information, intact memory processes, oriented to person, oriented to place, oriented to time, oriented to situation, oriented to reality [facility] " hallucinations none [facility] " thought content (mental status exam) (E&M) lucid Garettmaritza Ledesma " mental status assessment, process able to abstract, goal-directed, logical [facility] " mental status assessment, sensorium alert, attentive, clear [facility] " affect (mental status exam) congruent, euthymic, normal intensity, normal range [facility] " mental status assessment, speech activity normal flow, normal pace, normal pressure, normal rate, normal tone, normal volume, spontaneous, loud [facility] " mental status assessment, motor activity normal gait, normal posture [facility] " behavior (mental status exam) appropriate, candid, cooperative, good eye contact, polite, responsive [facility] " mental appearance (mental status exam) adequate hygiene, appropriate dress, looks like stated age, neat [facility] assessment of judgment and insight E&M intact [...] Anxiety Disorder Questionnaire - Question 2 0 Deeipka Chen " Generalized Anxiety Disorder Questionnaire - Question 1 0 Deepika Chen delusion No Jasper Jeramie " mental status assessment, judgment fair Jasper Bobo" [...] Covered democrat ID *Jasper White 0-100% Other [id number] Sliding Fee - Cat 1 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 [id number] *Jasper White 0-100% Other Sliding Fee - Cat 1 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 *Jasper White 0-100% Other [id number] *Jasper White 0-100% Other Sliding Fee - Cat 1 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 [id number] *Jasper White 0-100% Other [id number] ADVANCE DIRECTIVES Name Date DISCUSSED - NO [...] - - Est Patient Exp Problem - 80704 Est Patient Detailed - 75018 Est Patient Detailed - 57999 Est Patient Exp Problem - 79847 Est Patient Exp Problem - 17175 Ofc Vst, Est Level III Est Patient Detailed - 82868 First Vx - Ix admin via ID IM or jet injects without counseling by physician Menactra Intramuscular Injectable Vision Vaccines Ordered - Print Consent/Declination Forms Ofc Vst, Est Level IV Xray - Chest - 2 Views - InHouse Handling of specimen for transfer Venipuncture Est Patient Detailed - 23454 Dispensing Visit (UNLIVSTED OPHTHALMOLOGICAL SERVICE/PROCEDURE) INFLUENZA VACCINE QUADRIVALENT 3 YRS PLUS IM Pneumovax Vaccine PPSV23 Admin of Vaccine - Injection - Each Add'l Admin of Vaccine - Injection - 1 Est Patient Detailed - 93611 Progressive lens, per lens Frames, purchases Est Patient Comprehensive Opth - 73933 New Patient Intermediate Opth - 71161 Est Patient Detailed - 79334 Est Patient Detailed - 64784 Est Patient Detailed - 23975 Est Patient Detailed - 64846 Est Patient Exp Problem - 51887 Est Patient Detailed - 94412 Diagnostic evaluation with medical - 04110 INFLUENZA VACCINE QUADRIVALENT 3 YRS PLUS IM Admin of Vaccine - Injection - 1 Est Patient Detailed - 57772 Est Patient Detailed - 04596 Prevnar (PCV13) IM TDAP Admin of Vaccine - Injection - Each Add'l Admin of Vaccine - Injection - 1 Est Patient Well Exam (40 - 64 Yrs) - 54885 [facility] - Psychiatry Diagnostic evaluation (no medical) - 07154 IB 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 Primary [facility] Xray - Chest - PA & Lat - InHouse [facility] Handling of specimen for transfer Venipuncture Integrated [facility]al [facility] Assessment (IBH) New Patient Well Exam (40 - 64 Yrs) - 60765 Handling of specimen for transfer Venipuncture HISTORY [...] per lens Jazmin Bullard completed Frames, purchases Jazminkaylen Bullard Frame #1111 (Pd 60.00) completed Est Patient Comprehensive Opt - 64154 Edgard Martin completed New Patient Intermediate Opt - 46651 Chriss Martin completed Diagnostic evaluation with medical - 58374 Buck Ledesma completed [facility] Maximus Yancey Time spent with patient: 30 completed Diagnostic evaluation (no medical) - 36031 Jasper Bobo completed [facility] 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 Jasper Bobo completed [facility] Service [facility] Maximus Yancey Time spent with patient: 30 completed Primary [facility] Service [facility] Maximus Yancey Time spent with patient: 30 completed Venipuncture Sandra Monge completed Venipuncture Sandra Monge completed [facility] No Information Available [facility] No Information Available
--- OUTSIDE RECORDS SUMMARY | 2020-02-03 02:27 | XMS REPORT ---
Author Author Admin, [employer] Organization Unknown Address Unknown Phone Unavailable PROBLEMS [...] Location Encounter Diagnosis - Ambulatory Encounter Nela Alexandre Schroeder [facility] Adult Medicine UNK - Ambulatory Encounter Nelairina Cruz [facility] UNK - Ambulatory Encounter Marcelino Leoz Callizo Rosy Ghosh [facility] Behavioral Health UNK - Ambulatory Encounter Nelairina Lanza MedAdherence, [facility] Adult Medicine UNK - Ambulatory Encounter Nelairina Schroeder [facility] Adult Medicine UNK - Ambulatory Encounter Nelairina Pineda [facility] Adult Medicine UNK - Ambulatory Encounter Nelairina Lanza MedAdherence, LM Adult Medicine UNK - Ambulatory Encounter Marcelino Leoz Callizo [facility] Behavioral Health UNK - Ambulatory Encounter Marcelino Leoz Callizo Thida Santos [facility] UNK - Ambulatory Encounter Nela Wayneh Nela Schroeder LinkLogkendrick LM Adult Medicine UNK - Ambulatory Encounter Nela Wayneh Nela Canasnth LM Adult Medicine UNK - Ambulatory Encounter Nela Missaelnth Nela Blackh Dylon Walker [facility] Adult Medicine Abscess, axilla, right - Ambulatory Encounter Sandra Lanza MedAdherence, [facility] Adult Medicine UNK - Ambulatory Encounter Dorothy Alberts [facility] Contact Center UNK - Ambulatory Encounter Isi Bliss [facility] Contact Center UNK - Ambulatory Encounter Buck Arringtons Isi Isbell [facility] Contact Center UNK - Ambulatory Encounter Nela Santiikanth Nela Santiikanth [facility] Adult Medicine UNK - Ambulatory Encounter Nela Missaelnth Nlea Santiikanth [facility]ic [facility] Adult Medicine UNK - Ambulatory Encounter Nelairina Blackh [facility] Adult Medicine UNK - Ambulatory Encounter Nelairina Blackh Nela Alexandre Pineda LM Adult Medicine Screening for hypercholesterolemiaImmunization updateFlu shotHx Bronchitis acute with bronchospasmHyponatremiaHyperkalemiaHypercalcemia - Ambulatory Encounter Rinal Recinos [facility] Adult Medicine UNK - Ambulatory Encounter Rinal Recinos Cliff Jackson [facility] Adult Medicine UNK - Ambulatory Encounter Rinal Recinos [facility] Adult Medicine UNK - Ambulatory Encounter Mare Carbajal [facility] Adult Medicine UNK - Ambulatory Encounter Dorothy Nash [facility] Contact Center UNK - Ambulatory Encounter Rinal Recinos LinkLogic LM Adult Medicine UNK - Ambulatory Encounter Nazjely Manuel Arnold [facility] Adult Medicine UNK - Ambulatory Encounter Nela Canasbethanykirill [facility]ic [facility] Adult Medicine UNK - Ambulatory Encounter Nela Canasnth [facility]Logic [facility] Adult Medicine UNK - Ambulatory Encounter Dorothy Travisirina Canasbethanykirill Canasbethanyh Srinath Javed [facility] Contact Center UNK - Ambulatory Encounter Nela Canasbethanykirill Rondon Santikendraanthony LinkLogic LM Adult Medicine UNK - Ambulatory Encounter Martha Stallworth [facility] Public Health Services UNK - Ambulatory Encounter Nela Canasbethanykirill Rondon Santikendraanthony LM Adult Medicine UNK - Ambulatory Encounter Nela Canasbethanykirill Kari Stallworth [facility] Adult Medicine HIV infectionHepatitis A immunityHepatitis B immunity - Ambulatory Encounter Cliff Napier [facility] Contact Center UNK - Ambulatory Encounter Mare Carbajal LM Adult Medicine UNK - Ambulatory Encounter Rinal Recinos Cliff Napier LM Adult Medicine UNK - Ambulatory Encounter Cliff Annel [facility] Adult Medicine UNK - Ambulatory Encounter Rinal Recinos [facility]ic [facility] Adult Medicine UNK - Ambulatory Encounter Rinal Recinos LinkLogic LM Adult Medicine UNK - Ambulatory Encounter Jazlyn Nash LM Adult Medicine UNK - Ambulatory Encounter Rinal Recinos LinkLogic LM Adult Medicine UNK - Ambulatory Encounter Rinal Recinos LinkLogic LM Adult Medicine UNK - Ambulatory Encounter Rinal Recinos LinkLogic LM Adult Medicine UNK - Ambulatory Encounter Sandra Monge LM Adult Medicine UNK - Ambulatory Encounter Sandra Monge [facility] Adult Medicine Osteopenia - Ambulatory Encounter Cliff Jackson LM Adult Medicine UNK - Ambulatory Encounter Destinishara Recinos LM Adult Medicine UNK - Ambulatory Encounter Rinal Recinos Cliff Jackson [facility] Adult Medicine UNK - Ambulatory Encounter Cliff Jackson [facility] Adult Medicine UNK - Ambulatory Encounter Cliff Jackson LinkLogic [facility] Adult Medicine UNK - Ambulatory Encounter Sandra Monge LinkLogic Destinial Recinos [facility] Adult Medicine UNK - Ambulatory Encounter Sandra Monge LinkLogic Meghna Arnold [facility] Adult Medicine UNK - Ambulatory Encounter Fax Status [facility] UNK - Ambulatory Encounter Fax Status [facility] UNK - Ambulatory Encounter Fax Status LinkLogic [facility] UNK - Ambulatory Encounter Fax Status [facility] UNK - Ambulatory Encounter Mare Georgesal Recinos Ragini Murillo [facility] Adult Medicine UNK - Ambulatory Encounter Rinal Recinos LinkLogic Mare Carbajla [facility] Adult Medicine UNK - Ambulatory Encounter Jeromy Recinos TristonLogic [facility] Adult Medicine UNK - Ambulatory Encounter Meghna Nash [facility] Adult Medicine UNK - Ambulatory Encounter Fax Status [facility] Services UNK - Ambulatory Encounter Fax Status [facility] UNK - Ambulatory Encounter Sandra Monge [facility] Adult Medicine UNK - Ambulatory Encounter Sandra Nash [facility] Adult Medicine UNK - Ambulatory Encounter Lashaun Monge [facility] UNK - Ambulatory Encounter Sandra Monge [facility] Adult Medicine UNK - Ambulatory Encounter Jeromy Recinos [facility] Adult Medicine UNK - Ambulatory Encounter Jeromy Jackson [facility] Adult Medicine UNK - Ambulatory Encounter Cliff Jackson [facility] Adult Medicine UNK - Ambulatory Encounter Meghna Nash [facility] Adult Medicine UNK - Ambulatory Encounter Cliff Jackson [facility] Adult Medicine UNK - Ambulatory Encounter Fax Status [facility] Services UNK - Ambulatory Encounter Fax Status [facility] Services UNK - Ambulatory Encounter Sandra Monge LinkLogic [facility] Adult Medicine UNK - Ambulatory Encounter Sandra Monge [facility] Adult Medicine UNK - Ambulatory Encounter Sandra Zhaoberrachell Quiles [facility] Adult Medicine Increased transaminase level - Ambulatory Encounter Sandra GoldsteinLogkendrick [facility] Adult Medicine UNK - Ambulatory Encounter Sandra Ballardra [facility] Adult Medicine UNK - Ambulatory Encounter Sandra GoldsteinLogkendrick [facility] Adult Medicine UNK - Ambulatory Encounter Sandra Monge [facility] Adult Medicine UNK - Ambulatory Encounter Sandra Tellez Ausra Anginava Martinez [facility] Adult Medicine Hx Bronchitis acute with bronchospasmHyponatremiaHyperkalemiaHypercalcemia - Ambulatory Encounter Sandra Lanza MedAdherence, [facility] Adult Medicine UNK - Ambulatory Encounter Sandra Lanza MedAdherence, [facility] Adult Medicine UNK - Ambulatory Encounter Cliff Jackson [facility] Adult Medicine UNK - Ambulatory Encounter Sandra Monge [facility] Adult Medicine UNK - Ambulatory Encounter Sandra Jackson [facility] Adult Medicine UNK - Ambulatory Encounter Sandra Lanza MedAdherence, [facility] Adult Medicine UNK - Ambulatory Encounter Sandra Lanza MedAdherence, [facility] Adult Medicine UNK - Ambulatory Encounter Boni Cristina [facility] Public Health Services UNK - Ambulatory Encounter Jazmin Bullard [facility] Vision UNK - Ambulatory Encounter Jazmin Bullard [facility] Vision UNK - Ambulatory Encounter Sandra GoldsteinLogic [facility] Adult Medicine UNK - Ambulatory Encounter Sandra GoldsteinLogkendrick [facility] Adult Medicine UNK - Ambulatory Encounter Sandra Monge [facility] Adult Medicine UNK - Ambulatory Encounter Sandra Martinez [facility] Adult Medicine Onychomycosis, toenailsImmunization update - Ambulatory Encounter Jazmin Bullard [facility] Vision UNK - Ambulatory Encounter Edgard Song Martinmargi Martin [facility] Vision UNK - Ambulatory Encounter Edgard Martin [facility] Vision UNK - Ambulatory Encounter Edgard Song Mario Hoffmann [facility] Vision SPECIAL SCREENING EXAMINATION OTH SPEC VIRAL DZ - Ambulatory Encounter Chriss Martin [facility] Vision UNK - Ambulatory Encounter Chrissjesus Martin [facility] UNK - Ambulatory Encounter Chrissjesus Martin [facility] UNK - Ambulatory Encounter Chrissjesus Bullard [facility] Vision Myopia - OURegular astigmatism, bilateralPresbyopia - OU - Ambulatory Encounter Sandra Monge LinkLogic [facility] Adult Medicine UNK - Ambulatory Encounter Sandra Vargas [facility] Adult Medicine UNK - Ambulatory Encounter Sandra Vargas [facility] Adult Medicine UNK - Ambulatory Encounter Sandra Yancey MedAdherence [facility] Adult Medicine UNK - Ambulatory Encounter Sandra Lanza MedAdherence, [facility] Adult Medicine UNK - Ambulatory Encounter Sandra Lanza MedAdherence, LM Adult Medicine UNK - Ambulatory Encounter Sandra Lanza MedAdherence, [facility] Adult Medicine UNK - Ambulatory Encounter Sandra Lanza MedAdherence, [facility] Adult Medicine UNK - Ambulatory Encounter Sandra Lanza MedAdherence, [facility] Adult Medicine UNK - Ambulatory Encounter Sandra Lanza MedAdherence, [facility] Adult Medicine UNK - Ambulatory Encounter Khloe Mckeon [facility] UNK - Ambulatory Encounter Khloe Lee [facility] UNK - Ambulatory Encounter Amaury Nath [facility] Adult Medicine UNK - Ambulatory Encounter Amaury Nath [facility] Adult Medicine UNK - Ambulatory Encounter Sandra Monge [facility] Adult Medicine UNK - Ambulatory Encounter Sandra Monge [facility] Adult Medicine UNK - Ambulatory Encounter Sandra Hill [facility] Adult Medicine Hx Latent tuberculosis, s/p INH/B6Hx Bronchitis acute with bronchospasm - Ambulatory Encounter Buck Ledesma [facility] Behavioral Health UNK - Ambulatory Encounter Buck Kowalski [facility] UNK - Ambulatory Encounter Sandra Vargas [facility] Adult Medicine UNK - Ambulatory Encounter Sandra Vargas [facility] Adult Medicine UNK - Ambulatory Encounter aSndra Bush [facility] UNK - Ambulatory Encounter Buck Ledesma [facility]al Health UNK - Ambulatory Encounter Buck Ledesma LinkLogic [facility] Behavioral Health UNK - Ambulatory Encounter Buck Solares [facility] Contact Center UNK - Ambulatory Encounter Sandra Castro [facility] UNK - Ambulatory Encounter Sandra Castro [facility] Adult Medicine UNK - Ambulatory Encounter Sandra Monge [facility] Adult Medicine UNK - Ambulatory Encounter Sandra Monge [facility] Adult Medicine UNK - Ambulatory Encounter Sandra Kessler [facility] Adult Medicine UNK - Ambulatory Encounter Sandra Monge LM Adult Medicine UNK - Ambulatory Encounter Sandra Kowalski [facility] Adult Medicine UNK - Ambulatory Encounter Nancy [facility] Services UNK - Ambulatory Encounter Khloe Lee [facility] UNK - Ambulatory Encounter Nancy Grafic [facility] Adult Medicine UNK - Ambulatory Encounter Buck Burris [facility]al [facility] UNK - Ambulatory Encounter Sandra Monge [facility] Adult Medicine UNK - Ambulatory Encounter Sandra Hill [facility] Adult Medicine Hx Latent tuberculosis, s/p INH/H6Mwfiicobmxcybkvgslkh - Ambulatory Encounter Sandra Monge LinkLogic [facility] Adult Medicine UNK - Ambulatory Encounter Sandra Boss [facility] Adult Medicine UNK - Ambulatory Encounter Buck Clarke [facility] UNK - Ambulatory Encounter Buck Ledesma [facility] Behavioral Health UNK - Ambulatory Encounter Buck GoldsteinLogic [facility] Behavioral Health UNK - Ambulatory Encounter Sandra GoldsteinLogkendrick [facility] Adult Medicine UNK - Ambulatory Encounter Buck Caro [facility] Behavioral Health UNK - Ambulatory Encounter Buck Burris [facility] Behavioral Health UNK - Ambulatory Encounter Lashaun Mckeon [facility] UNK - Ambulatory Encounter [facility] UNK - Ambulatory Encounter Buck Ledesma [facility] Behavioral Health UNK - Ambulatory Encounter Buck Bliss [facility] UNK - Ambulatory Encounter Sandra GoldsteinLogic [facility] Adult Medicine UNK - Ambulatory Encounter Sandra Monge [facility] Adult Medicine UNK - Ambulatory Encounter Sadnra Chen [facility] Adult Medicine Flu shot - Ambulatory Encounter Sandra GoldsteinLogkendrick [facility] Adult Medicine UNK - Ambulatory Encounter Sandra Chen [facility] Adult Medicine UNK - Ambulatory Encounter Sandra Monge [facility] Adult Medicine UNK - Ambulatory Encounter Sandra Chen [facility] Adult Medicine BMI < 20 - Ambulatory Encounter Sandra GoldsteinLogic [facility] Adult Medicine UNK - Ambulatory Encounter Sandra Monge [facility] Services UNK - Ambulatory Encounter Sandra Monge [facility] Adult Medicine UNK - Ambulatory Encounter Sandra Chen [facility] Adult Medicine Immunization updateVitamin D deficiency - [facility] - [facility]ulatory Encounter Jason Gilliam [facility] UNK - Ambulatory Encounter Sandra Hill [facility] Adult Medicine UNK - Ambulatory Encounter [facility] Care Coordination Desktop Dex Hill [facility] UNK - Ambulatory Encounter Sandra Monge [facility] Adult Medicine COPDHx Latent tuberculosis, s/p INH/B6 - Ambulatory Encounter Sandra Kowalski [facility] Adult Medicine UNK - Ambulatory Encounter Maximus Yancey [facility] [employer] UNK - Ambulatory Encounter Maximus Yancey [facility] [employer] UNK - Ambulatory Encounter Jason Nath [facility] UNK - Ambulatory Encounter Sandra GoldsteinLogkendrick [facility] Adult Medicine UNK - Ambulatory Encounter Maximus Yancey [facility] [employer] UNK - Ambulatory Encounter Sandra Mcgowan [facility] Adult Medicine UNK - Ambulatory Encounter Maximus Yancey [facility] San[employer] UNK - Ambulatory Encounter Sandra Monge [facility] Adult Medicine UNK - Ambulatory Encounter Jasper Keller [facility] Behavioral Health DEPRESSIVE DISORDER, OTHER SPECIFIEDALCOHOL USE DISORDER, MODERATETOBACCO USE DISORDER, MODERATE - Ambulatory Encounter Sandra Jamison [facility] Adult Medicine - Ambulatory Encounter Sandra GoldsteinLogkendrick [facility] Adult Medicine UNK - Ambulatory Encounter Sandra Day [facility] Adult Medicine Screening for hypercholesterolemia - Ambulatory Encounter Adrian Cristina [facility] Public Health Services UNK - Ambulatory Encounter Sandra Monge LinkLogkendrick [facility] Vision UNK VITAL SIGNS No Information Available [...] creatinine, urine, 24 hour 2076 mg/24h LinkLogic [id number] High " creatinine, random, urine 38.1 mg/dL [...] creatinine, urine, 24 hour 1562 mg/24h LinkLogic [id number] " creatinine, random, urine 25.4 mg/dL LinkLogic [...] % LinkLogic " platelet count 247 X10E3/UL LinkLog 150-379 " red blood cell distribution width 13.9 % LinkLogic 12.3-15.4 " mean corpuscular hemoglobin concentration, RBC 34.1 G/DL LinkLogic 31.5-35.7 " mean corpuscular hemoglobin, RBC 35.1 pg LinkLogic 26.6-33.0 High " mean corpuscular volume, RBC 103 fL LinkLog 79-97 High " hematocrit, blood 43.7 % LinkLog 37.5-51.0 " hemoglobin, blood 14.9 g/dL LinkLog 12.6-17.7 " erythrocyte (RBC) count 4.25 X10E6/UL LinkLog 4.14-5.80 " leukocyte count, blood 7.0 X10E3/UL LinkLog 3.4-10.8 " CD4/CD8 ratio 0.97 LinkLog 0.92-3.72 " T-suppressor cells (CD8) as percent of blood lymphocytes 47.9 % LinkLogic 12.0-35.5 High " absolute CD8 1293 [phone] High " T-helper cells (CD4) as percent of blood lymphocytes 46.6 % [facility] 30.8-58.5 " T-helper cells (CD4) count 1258 /UL LinkLog [phone] vitamin D 25-hydroxy, serum 15.4 ng/mL [facility] 30.0-100.0 Low " rapid plasma reagin antibody, serum Non Reactive LinkLog Non Reactive " HIV-1RNA, serum, by PCR, quantitative 30 /mL [facility] " LDL cholesterol, serum 78 mg/dL LinkLog 0-99 " very low density lipoproteins 27 mg/dL LinkLogic 5-40 " HDL cholesterol, serum 92 mg/dL LinkLogic >39 " triglyceride, serum, fasting 134 mg/dL LinkLog 0-149 " cholesterol, serum 197 mg/dL LinkLogic [...] LinkLogic 12.0-35.5 High " absolute CD8 1270 LinkLog [phone] High " T-helper cells (CD4) [...] >3.0 " B-12, serum 471 pg/mL LinkLogic [phone]/04/21 human leukocyte antigen B57 negative Sandra Monge [...] Vaccine Dose Lot Number Status joleneact im [facility] [address]-64 sanofi pasteur 0.5 mL [id number] completed HISTORY OF MEDICATION USE Medication Instructions Dates Provider Comments DRYSOL 20 % EXTERNAL SOLUTION Apply once daily Nela Shrikanth HYPERCARE 15 % EXTERNAL SOLUTION Apply once daily as needed Nela Hancockikaanthony PROZAC 20 MG ORAL CAPSULE Take one [...] ONE TABLET BY MOUTH ONCE DAILY Nela Schroeder DESCOVY 200-25 MG ORAL TABLET 1 tab by mouth daily with food - Nela Schroeder PROZAC 40 MG ORAL CAPSULE 1 By [...] very busy though". Not homeless. Born in [facility]. City: [place]. State: [place]. Lives w/ mom and step-father in [address] Unemployed since November 2016. Highest education level: bachelor's degree. Not in workforce. Not on disability. 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 Sex at : Male. Sexual orientation: Palacio. Gender identity: Male. Gender of partner(s): Male. Age of first sexual intercourse: 17. Sexually Active: No. Not sexually active. Marcelino Flores " social history reviewed E&M reviewed today Marcelino Flores drug use, illicit Previously Dorothy Pineda " [...] very busy though". Not homeless. Born in [facility]. City: [place]. State: [place]. Lives w/ mom and step-father in [address] Unemployed since November 2016. Highest education level: bachelor's degree. Not in workforce. Not on disability. 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 Sex at : Male. Sexual orientation: Palacio. Gender identity: Male. Gender of partner(s): Male. Age of first sexual intercourse: 17. Sexually Active: No. Not sexually active. Dorothy Pineda " social history reviewed E&M reviewed today Dorothy Pineda " assessment of health literacy ([facility] 2014 Standards, 3C10) Adequate Dorothy Pineda " passive cigarette smoke exposure No Dorothy Pineda " smoking status current every day smoker Dorothy Pineda drug use, illicit Previously Marcelino Bruceo " alcohol use Currently Marcelino Li Farahizo " smoking status current every day smoker [...] though". Not homeless. Born in [place]. City: [place] State: [place]. Lives w/ mom and step-father in [place], [place]. Unemployed since November 2016. Highest education level: bachelor's degree. Not in workforce. Not on disability. 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 Sex at : Male. Sexual orientation: Palacio. Gender identity: Male. Gender of partner(s): Male. Age of first sexual intercourse: 17. Sexually Active: No. Not sexually active. Marcelino Flores " social history reviewed E&M reviewed today Marcelino Flores " sexual orientation Palacio Dylon Walker " is there any chance that you could be ? No Dylon Walker " assessment of health literacy ([facility] 2014 Standards, 3C10) Adequate Dylon Belle SuárezAaron " passive cigarette smoke exposure No Dylon [...] though". Not homeless. Born in [place]. City: [place]. State: [place]. Lives w/ mom and step-father in [place], [place]. Unemployed since November 2016. Highest education level: bachelor's degree. Not in workforce. Not on disability. 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 Sex at : Male. Sexual orientation: Palacio. Gender identity: Male. Gender of partner(s): Male. Age of first sexual intercourse: 17. Sexually Active: No. Not sexually active. Dylon Walker " social history reviewed E&M reviewed today Dylon Walker " Exercise Program Referral Mendez Walker " Weight Management Counseling Provided Mendez Walker " Nutrition intervention Mendez Walker time of call 08/02/2019 4:59 PM pAurva Isbell drug use, illicit Previously Dorothy Pineda [...] very busy though". Not homeless. Born in [facility]. City: [place]. State: [place]. Lives w/ mom and step-father in [place], [place]. Unemployed since November 2016. Highest education level: bachelor's degree. Not in workforce. Not on disability. 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 Sex at : Male. Sexual orientation: Palacio. Gender identity: Male. Gender of partner(s): Male. Age of first sexual intercourse: 17. Sexually Active: No. Not sexually active. Dorothy Pineda " social history reviewed E&M reviewed today Dorothy Pineda " assessment of health literacy ([facility] 2014 Standards, 3C10) Adequate Dorothy Pineda [...] very busy though". Not homeless. Born in [facility]. City: [place]. State: [place]. Lives w/ mom and step-father in [place], 2 cats. Unemployed since November 2016. Highest education level: bachelor's degree. Not in workforce. Not on disability. 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 Sex at : Male. Sexual orientation: Palacio. Gender identity: Male. Gender of partner(s): Male. Age of first sexual intercourse: 17. Sexually Active: No. Not sexually active. Cliff Jackson " social history reviewed E&M reviewed today Cliff Jackson " is there any chance that you could be ? No Cliff Jackson " assessment of health literacy ([facility] 2014 Standards, 3C10) Adequate Cliff Jackson " [...] very busy though". Not homeless. Born in [facility]. City: [place]. State: [place]. Lives w/ mom and step-father in [place], 2 cats. Unemployed since November 2016. Highest education level: bachelor's degree. Not in workforce. Not on disability. 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 Sex at : Male. Sexual orientation: Palacio. Gender identity: Male. Gender of partner(s): Male. Age of first sexual intercourse: 17. Sexually Active: No. Not sexually active. Cliff Jackson " social history reviewed E&M reviewed today Cliff Jackson " is there any chance that you could be ? No Cliff Jackson " assessment of health literacy ([facility] 2014 Standards, 3C10) Adequate Cliff Jackson " passive cigarette smoke exposure Yes Cliff Jackson " smoking status current every day smoker Cliff Jackson " smoking, advice to quit Yes Sandra Monge " Exercise Program Referral T Sandra Monge " Weight Management Counseling Provided T Sandra Monge " Nutrition intervention T Sandra Monge " drug use, illicit Previously Angi Blue [place] " alcohol use Currently Angi Juan " [...] though". Not homeless. Born in [place]. City: [place]. State: [place]. Lives w/ mom and step-father in [place], cats. Unemployed since November 2016. Highest education level: bachelor's degree. Not in workforce. Not on disability. 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 Sex at : Male. Sexual orientation: Palacio. Gender identity: Male. Gender of partner(s): Male. Age of first sexual intercourse: 17. Sexually Active: No. Not sexually active. Angi [place] " social history reviewed E&M reviewed today Angi Juan " sexual orientation Palacio Angi Hessrod " is there any chance that you could be ? No Angi Juan " assessment of health literacy ([facility] 2014 Standards, 3C10) Adequate Angi Juan " passive cigarette smoke exposure Yes Angi Hessrod " smoking status current every day smoker Angi Martinez time of call 12/02/2018 10:35 AM Adrian Cristina Exercise Program Referral T Sandra Monge " Weight Management Counseling Provided T Sandra Monge " Nutrition intervention T Sandra Monge " smoking, advice to quit Yes Sandra Monge " drug use, illicit Previously Angi [place] " alcohol use Currently Anginava Martinez " social history E&M Single. Single. Parents when pt was age 16, mother and father both remarried. Relationship with father "I love him but don't like him... we talk on phone 1x a week". Relationship with mother and step-father "perfect and very good". One younger brother, "get along well, he is very busy though". Not homeless. Born in [facility]. City: [place]. State: [place]. Lives w/ mom and step-father in [place], [facility]. Unemployed since November 2016. Highest education level: bachelor's degree. Not in workforce. Not on disability. 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 Sex at : Male. Sexual orientation: Palacio. Gender identity: Male. Gender of partner(s): Male. Age of first sexual intercourse: 17. Sexually Active: No. Not sexually active. Angi Blue [place] " social history reviewed E&M reviewed today Angi Juan " sexual orientation Palacio Angi Hessrod " is there any chance that you could be ? No Angi [place] " assessment of health literacy ([facility] 2014 Standards, 3C10) Adequate Angi Juan " passive cigarette smoke exposure Yes Angi Hessrod " smoking status current every day smoker Angi [place] sexual orientation Palacio Alexandra Hoffmann sexual orientation Palacio Jazminkaylen Bullard Exercise Program Referral T Sandra Monge " [...] very busy though". Not homeless. Born in [facility]. City: [place]. State: [place]. Lives w/ mom and step-father in [place], 2 cats. Unemployed since November 2016. Highest education level: bachelor's degree. Not in workforce. Not on disability. 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 Sex at : Male. Sexual orientation: Palacio. Gender identity: Male. Gender of partner(s): Male. Age of first sexual intercourse: 17. Sexually Active: No. Not sexually active. Sandra Monge " social history reviewed E&M reviewed today Sandra Monge " drug use, illicit Previously Michelle Hill " alcohol use Currently iMchelle Hill " is there any chance that you could be ? No Michelle Hill " assessment of health literacy ([facility] 2014 Standards, 3C10) Adequate Michelleadam Hill " [...] Elizabeth Kessler " assessment of health literacy ([facility] 2014 Standards, 3C10) Adequate Elizabeth Kessler " Exercise Program Referral T Elizabeth Kessler " Weight Management Counseling Provided Mendez Kessler " Nutrition intervention Mendez Kessler smoking status current every day smoker Buck Ledesma Exercise Program Referral T Sandra Monge " Weight Management Counseling Provided T Sandra Monge " Nutrition intervention T Sandra Monge " drug use, illicit Previously Michelle Hill " alcohol use Currently Michelle Sergio " is there any chance that you could be ? No Michelle Hill " passive cigarette smoke exposure No Michelle Hill " smoking status current every day smoker Michelle Hill " assessment of health literacy ([facility] 2014 Standards, 3C10) Adequate Michelle Sergio smoking [...] very busy though". Not homeless. Born in [facility]. City: [place]. State: [place]. Lives w/ mom and step-father in [place], 2 cats. Unemployed since November 2016. Highest education level: bachelor's degree. Not in workforce. Not on disability. 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 Sex at : Male. Sexual orientation: [...] Deepika Chen " assessment of health literacy ([facility] 2014 Standards, 3C10) Adequate Deepika Chen Exercise [...] very busy though". Not homeless. Born in [facility]. City: [place]. State: [place]. Lives w/ mom and step-father in [place], 2 cats. Unemployed since November 2016. Highest education level: bachelor's degree. Not in workforce. Not on disability. 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 Sex at : Male. Sexual orientation: Palacio. Gender identity: Male. Gender of partner(s): Male. Age of first sexual intercourse: 17. Sexually Active: No. Not sexually active. Deepika Chen " social history reviewed E&M reviewed today Deepika Chen " drug use, illicit Previously Deepika Chen " alcohol use Currently Deepika Chen " sexual orientation Palacio Deepika Valentinoierrez " passive cigarette smoke exposure No Deepika Chen " smoking, advice to quit Yes Deepika Valentinoierrez " smoking status current every day smoker Deepika Chen " assessment of health literacy ([facility] 2014 Standards, 3C10) Adequate Deepika Chen Exercise [...] very busy though". Not homeless. Born in [facility]. City: [place]. State: [place]. Lives w/ mom and step-father in [place], cats. Unemployed since November 2016. Highest education level: bachelor's degree. Not in workforce. Not on disability. 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 Sex at : Male. Sexual orientation: [...] Deepika Chen " assessment of health literacy ([facility] 2014 Standards, 3C10) Adequate Deepika Chen social [...] very busy though". Not homeless. Born in [facility]. City: [place]. State: [place]. Lives w/ mom and step-father in [place], cats. Unemployed since November 2016. Highest education level: bachelor's degree. Not in workforce. Not on disability. 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 Sex at : Male. Sexual orientation: Palacio. Gender identity: Male. Gender of partner(s): Male. Age of first sexual intercourse: 17. Sexually Active: No. Not sexually active. Jasper Bobo " drug use, illicit Previously Jasper Bobo " alcohol use, number maximum drinks per occasion [...] patient considered to be homeless No Jasper Bobo " social history - sexual practice Not [...] assessment Lives w/ mom and step-father in [place], 2 cats. Jasper Bobo " social history reviewed E&M reviewed today Sandra Monge " social history E&M Single. Spouse/Partner/Significant Other: n/a. Family is aware and supportive. Not homeless. Born in [facility]. City: [place]. State: [place]. Lives in [facility] in [facility]. Not employed. Highest education level: bachelor's [...] Monge " home/family situation, assessment Lives [place] [facility] [facility] [place] and stepdad in [facility]. Sandra Monge " family support Family is aware and supportive. Sandra Monge " smoking, advice to quit Yes Sandra Monge " assessment of health literacy ([facility] 2014 Standards, 3C10) Adequate Sandra Monge [...] oriented to time, place, and person Nela Santiikabethanyh " assessment of mood and affect E&M no depression, anxiety, or agitation Nela Wayneh " Generalized Anxiety Disorder Questionnaire - Question [...] oriented to situation, oriented to reality Marcelino Leolga Callizo " hallucinations none Marcelino Leoz Callizo " thought content (mental status exam) (E&M) lucid Marcelino Breanneolga Callizo " mental status assessment, process able to abstract, goal-directed, logical Marcelino Breanneolga Callizo " mental status assessment, sensorium alert, attentive, clear Marcelino Leoz Callizo " affect (mental status exam) congruent, euthymic, normal intensity, normal range, reactive Marcelino Leoz Callizo " mood (mental status exam) pleasant Marcelino Leoz Callizo " mental status assessment, speech activity normal flow, normal pace, normal pressure, normal rate, normal tone, normal volume, spontaneous, loud Marcelino Breanneolga Callizo " mental status assessment, motor activity normal gait, normal posture Marcelino Li Callizo " behavior (mental status exam) appropriate, candid, cooperative, good eye contact, polite, responsive Marcelinojoaquin Jefferson Callizo " mental appearance (mental status exam) adequate hygiene, appropriate dress, looks like stated age, neat, smells of heavy cigarette smoke/tobacco Marcelino Jefferson Callizo assessment of judgment and insight E&M [...] of judgment and insight E&M intact Rinal Recions " mental status examination: orientation E&M oriented [...] process able to abstract, goal-directed, logical Garettmaritza Ledesma " mental status assessment, sensorium alert, attentive, clear Garettmaritza Ledesma " affect (mental status exam) congruent, euthymic, normal intensity, normal range Garettmaritza Ledesma " mood (mental status exam) pleasant Buck Ledesma " mental status assessment, speech activity normal flow, normal pace, normal pressure, normal rate, normal tone, normal volume, spontaneous, loud Garettmaritza Ledesma " mental status assessment, motor activity normal gait, normal posture Garettmaritza Ledesma " behavior (mental status exam) appropriate, candid, cooperative, good eye contact, polite, responsive Garettmaritza Ledesma " mental appearance (mental status exam) [...] appropriate dress, looks like stated age, satya Bajwamaritza Chamberlainkaden mood (mental status exam) pleasant Garettmaritza Bulmarokaden " anxiety worry a lot, sleep disturbance Garettmaritza Bulmarokaden " mental status assessment, judgment fair Buck Ledesma " insight (mental status exam) fair Garettmaritza Ledesma " Mental Status Exam: intelligence adequate fund of information, intact memory processes, oriented to person, oriented to place, oriented to time, oriented to situation, oriented to reality Garettmaritza Ledesma " hallucinations none [facility] " thought content (mental status exam) (E&M) lucid Garettmaritza Ledesma " mental status assessment, process able to abstract, goal-directed, logical Garettmaritza Bulmarokaden " mental status assessment, sensorium alert, attentive, clear Garettmaritza Bulmarokaden " affect (mental status exam) congruent, euthymic, normal intensity, normal range Garettmaritza Bulmarokaden " mental status assessment, speech activity normal flow, normal pace, normal pressure, normal rate, normal tone, normal volume, spontaneous, loud Garettmaritza Chamberlainkaden " mental status assessment, motor activity normal gait, normal posture Garettmaritza Bulmarokaden " behavior (mental status exam) appropriate, candid, cooperative, good eye contact, polite, responsive Garettmaritza Chamberlainkaden " mental appearance (mental status exam) adequate hygiene, appropriate dress, looks like stated age, satya Garetteamon Chamberlainkaden assessment of judgment and insight [...] of judgment and insight E&M intact Sandra Monge" mental status examination: orientation E&M oriented to [...] alliance party ID *Jasper White 0-100% Other [id number] Sliding Fee - Cat 1 [email or web address] [id number] *Jasper White 0-100% Other Sliding Fee - Cat 1 [email or web address] insurance company *Jasper White 0-100% Other [id number] *Jasper White 0-100% Other Sliding Fee - Cat 1 [email or web address] [id number] *Jasper White 0-100% Other [id number] ADVANCE DIRECTIVES Name Date DISCUSSED - NO [...] - - Est Patient Exp Problem - 52224 Est Patient Detailed - 53866 Est Patient Detailed - 46770 Est Patient Exp Problem - 73750 Est Patient Exp Problem - 06510 Ofc Vst, Est Level III Est Patient Detailed - 51950 First Vx - Ix admin via ID IM or jet injects without counseling by physician Menactra Intramuscular Injectable Vision Vaccines Ordered - Print Consent/Declination Forms Ofc Vst, Est Level IV Xray - Chest - 2 Views - InHouse Handling of specimen for transfer Venipuncture Est Patient Detailed - 44320 Dispensing Visit (UNLIVSTED OPHTHALMOLOGICAL SERVICE/PROCEDURE) INFLUENZA VACCINE QUADRIVALENT 3 YRS PLUS IM Pneumovax Vaccine PPSV23 Admin of Vaccine - Injection - Each Add'l Admin of Vaccine - Injection - 1 Est Patient Detailed - 51264 Progressive lens, per lens Frames, purchases Est Patient Comprehensive Opth - 17004 New Patient Intermediate Opth - 52803 Est Patient Detailed - 32701 Est Patient Detailed - 60337 Est Patient Detailed - 51505 Est Patient Detailed - 82508 Est Patient Exp Problem - 41607 Est Patient Detailed - 93810 Diagnostic evaluation with medical - 65293 INFLUENZA VACCINE QUADRIVALENT 3 YRS PLUS IM Admin of Vaccine - Injection - 1 Est Patient Detailed - 48217 Est Patient Detailed - 54539 Prevnar (PCV13) IM TDAP Admin of Vaccine - Injection - Each Add'l Admin of Vaccine - Injection - 1 Est Patient Well Exam (40 - 64 Yrs) - 72227 Primary Care Service [facility] Behavior[facility] - Psychiatry Diagnostic evaluation (no medical) - 58709 [facility] Assessment - Line Controller Primary Care Service Linkage Xray - Chest - PA & Lat - InHouse Primary Care Service Linkage Handling of specimen for transfer Venipuncture Integrated Behavioral Health Assessment (IBH) New Patient Well Exam (40 - 64 Yrs) - 13159 Handling of specimen for transfer Venipuncture HISTORY OF PROCEDURES Procedure Date Procedure Name Provider Procedure Notes Status First Vx - Ix admin via ID IM or jet injects without counseling by physician Nela Schroeder completed Menactra Intramuscular Injectable Nela Schroeder completed Vaccines Ordered - Print Consent/Declination Forms Nelairian Schroeder completed Venipuncture Sandra Monge completed Dispensing Visit (UNLIVSTED OPHTHALMOLOGICAL SERVICE/PROCEDURE) Jazmin Bullard completed Progressive lens, per lens Jazmin Bullard completed Frames, purchases Jazmin Bullard Frame #1111 (Pd 60.00) completed Est Patient Comprehensive Opt - 15855 Edgard Martin completed New Patient Intermediate Opth - 72021 Chriss Martin completed Diagnostic evaluation with medical - 06617 Buck Ledesma completed Primary Care Service Linkage Maximus Yancey Time spent with patient: 30 completed Diagnostic evaluation (no medical) - 81883 Jasper Bobo completed [facility] Assessment - Line Controller Jasper Bobo completed Primary Care Service Linkage Maxiums Yancey Time spent with patient: 30 completed Primary Care Service Linkage Maximus Yancey Time spent with patient: 30 completed Venipuncture Sandra Monge completed Venipuncture Sandra Monge completed [facility] No Information Available [facility] No Information Available
--- OUTSIDE RECORDS SUMMARY | 2020-02-03 02:28 | XMS REPORT ---
Author Author Admin, [place] Organization Unknown Address Unknown Phone Unavailable PROBLEMS [...] Diagnosis - Ambulatory Encounter Nela Alexandre Schroeder [facility] Adult Medicine UNK - Ambulatory Encounter Nelairina Cruz [facility] UNK - Ambulatory Encounter Marcelino Leoz Callizo Rosy Ghosh [facility] Behavioral Health UNK - Ambulatory Encounter Nelairina Lanza MedAdherence, [facility] Adult Medicine UNK - Ambulatory Encounter Nelairina Schroeder [facility] Adult Medicine UNK - Ambulatory Encounter Nelairina Pineda [facility] Adult Medicine UNK - Ambulatory Encounter Nelairina Lanza MedAdherence, [facility] Adult Medicine UNK - Ambulatory Encounter Marcelino Leoz Callizo [facility] Behavioral Health UNK - Ambulatory Encounter Marcelino Leoz Callizo Thida Santos [facility] Behavior[facility] UNK - Ambulatory Encounter Nela Wayneh Nela Schroeder LinkLogkendrick [facility] Adult Medicine UNK - Ambulatory Encounter Nela Wayneh Nela Canasnth LM Adult Medicine UNK - Ambulatory Encounter Nela Missaelnth Nela Blackh Dylon Walker [facility] Adult Medicine Abscess, axilla, right - Ambulatory Encounter Sandra Lanza MedAdherence, [facility] Adult Medicine UNK - Ambulatory Encounter Dorothy Alberts [facility] UNK - Ambulatory Encounter Isi Bliss [facility] UNK - Ambulatory Encounter Buck Arringtons Isi Isbell [facility] UNK - Ambulatory Encounter Nela Santiikanth Nela Santiikanth [facility] Adult Medicine UNK - Ambulatory Encounter Nela Missaelnth Nela Santiikanth [facility] Adult Medicine UNK [...] Medicine UNK - Ambulatory Encounter Dorothy Nash [facility] Contact [facility] UNK - Ambulatory Encounter Rinal Recinos LinkLogic LM Adult Medicine UNK - Ambulatory Encounter Nazjely Manuel Arnold [facility] Adult Medicine UNK - Ambulatory Encounter Nela Canasbethanykirill [facility] Adult Medicine UNK - Ambulatory Encounter Nela Canasnth [facility] Adult Medicine UNK - Ambulatory Encounter Dorothy Travisirina Canasbethanykirill Canasbethanyh Srinath Javed [facility] Contact Center UNK - Ambulatory Encounter Nela Canasbethanykirill Rondon Santikendraanthony LinkLogic LM Adult Medicine UNK - Ambulatory Encounter Martha Stallworth [facility] Public Health Services UNK - Ambulatory Encounter Nela Canasbethanykirill Rondon Santikendraanthony LM Adult Medicine UNK - Ambulatory Encounter Nela Canasbethanykirill Kari Stallworth [facility] Adult Medicine HIV infectionHepatitis A immunityHepatitis B immunity - Ambulatory Encounter Cliff Napier [facility] Contact [facility] UNK - Ambulatory Encounter [...] Medicine UNK - Ambulatory Encounter Sandra Monge [facility] Adult Medicine Osteopenia - Ambulatory Encounter Cliff Jackson [facility] Adult Medicine UNK - Ambulatory Encounter Destinishara Recinos [facility] Adult Medicine UNK - Ambulatory Encounter Rinal Recinos Cliff Jackson [facility] Adult Medicine UNK - Ambulatory Encounter Cliff Jackson [facility] Adult Medicine UNK - Ambulatory Encounter Cliff Jackson LinkLogic [facility] Adult Medicine UNK - Ambulatory Encounter Sandra Monge LinkLogic Destinial Recinos [facility] Adult Medicine UNK - Ambulatory Encounter Sandra Monge LinkLogic Meghna Arnold [facility] Adult Medicine UNK - Ambulatory Encounter Fax Status [facility] UNK - Ambulatory Encounter Fax Status [facility] UNK - Ambulatory Encounter Fax Status [facility] Health [facility] UNK - Ambulatory Encounter Fax Status [facility] UNK - Ambulatory Encounter Mare Georgesal Recinos Ragini Murillo [facility] Adult Medicine UNK - Ambulatory Encounter Rinal Recinos LinkLogic Mare Carbajal [facility] Adult Medicine UNK - Ambulatory Encounter Jeromy Recinos TristonLogic [facility] Adult Medicine UNK - Ambulatory Encounter Meghna Nash [facility] Adult Medicine UNK - Ambulatory Encounter Fax Status [facility] Services UNK - Ambulatory Encounter Fax Status [facility] UNK - Ambulatory Encounter Sandra Monge [facility] Adult Medicine UNK - Ambulatory Encounter Sandra Nash [facility] Adult Medicine UNK - Ambulatory Encounter Lashaun Monge [facility] UNK - Ambulatory En[facility] - Ambulatory Encounter Jeromy Recinos [facility] Adult Medicine UNK - Ambulatory Encounter Jeromy Jackson [facility] Adult Medicine UNK - Ambulatory Encounter Cliff Jackson [facility] Adult Medicine UNK - Ambulatory Encounter Meghna Nash [facility] Adult Medicine UNK - Ambulatory Encounter Cliff Jackson [facility] Adult Medicine UNK - Ambulatory Encounter Fax Status [facility] Services UNK - Ambulatory Encounter Fax Status [facility] Services UNK - Ambulatory Encounter Sandra Monge LinkLogic [facility] Adult Medicine UNK - Ambulatory Encounter Sandra Monge [facility] Adult Medicine UNK - Ambulatory Encounter Sandra Zhaoberrachell Quiles [facility] Adult Medicine Increased transaminase level - Ambulatory Encounter Sandra GoldsteinLogkendrick [facility] Adult Medicine UNK - Ambulatory Encounter Sandra Ballardra [facility] Adult Medicine UNK - Ambulatory Encounter Sandra GoldsteinLogkendrick [facility] Adult Medicine UNK - Ambulatory Encounter Sandra Monge [facility] Adult Medicine UNK - Ambulatory Encounter Sandra Tellez Ausra Anginava Martinez [facility] Adult Medicine Hx Bronchitis acute with bronchospasmHyponatremiaHyperkalemiaHypercalcemia - Ambulatory Encounter Sandra Lanza MedAdherence, [facility] Adult Medicine UNK - Ambulatory Encounter Sandra Lanza MedAdherence, [facility] Adult Medicine UNK - Ambulatory Encounter Cliff Jackson [facility] Adult Medicine UNK - Ambulatory Encounter Sandra Monge [facility] Adult Medicine UNK - Ambulatory Encounter Sandra Jackson [facility] Adult Medicine UNK - Ambulatory Encounter Sandra Lanza MedAdherence, [facility] Adult Medicine UNK - Ambulatory Encounter Sandra Lanza MedAdherence, [facility] Adult Medicine UNK - Ambulatory Encounter Boni Cristina [facility] Public Health Services UNK - Ambulatory Encounter Jazmin Bullard [facility] Vision UNK - Ambulatory Encounter Jazmin Bullard [facility] Vision UNK - Ambulatory Encounter Sandra GoldsteinLogic [facility] Adult Medicine UNK - Ambulatory Encounter Sandra GoldsteinLogkendrick [facility] Adult Medicine UNK - Ambulatory Encounter Sandra Monge [facility] Adult Medicine UNK - Ambulatory Encounter Sandra Martinez [facility] Adult Medicine Onychomycosis, toenailsImmunization update - Ambulatory Encounter Jazmin Bullard [facility] Vision UNK - Ambulatory Encounter Edgard Song Martinmargi Martin [facility] Vision UNK - Ambulatory Encounter Edgard Martin [facility] Vision UNK - Ambulatory Encounter Edgard Song Mario Hoffmann [facility] Vision SPECIAL SCREENING EXAMINATION OTH SPEC VIRAL DZ - Ambulatory Encounter Chriss Martin [facility] UNK - Ambulatory Encounter Chrissjesus Martin [facility] UNK - Ambulatory Encounter Chrissjesus Martin [facility] UNK - Ambulatory Encounter Chrissjesus Bullard [facility] Vision Myopia - OURegular astigmatism, bilateralPresbyopia - OU - Ambulatory Encounter Sandra Monge LinkLogic [facility] Adult Medicine UNK - Ambulatory Encounter Sandra Vargas [facility] Adult Medicine UNK - Ambulatory Encounter Sandra Vargas [facility] Adult Medicine UNK - Ambulatory Encounter Sandra Yancey MedAdherence [facility] Adult Medicine UNK - Ambulatory Encounter Sandra Lanza MedAdherence, [facility] Adult Medicine UNK - Ambulatory Encounter Sandra Lanza MedAdherence, [facility] Adult Medicine UNK - Ambulatory Encounter Sandra Lanza MedAdherence, [facility] Adult Medicine UNK - Ambulatory Encounter Snadra Lanza MedAdherence, [facility] Adult Medicine UNK - Ambulatory Encounter Sandra Lanza MedAdherence, [facility] Adult Medicine UNK - Ambulatory Encounter Sandra Lanza MedAdherence, [facility] Adult Medicine UNK - Ambulatory Encounter Khloe Mckeon [facility] UNK - Ambulatory Encounter Khloe Lee [facility] UNK - Ambulatory Encounter Amaury Nath [facility] Adult Medicine UNK - Ambulatory Encounter Amaury Nath [facility] Adult Medicine UNK - Ambulatory Encounter Sandra Monge [facility] Adult Medicine UNK - Ambulatory Encounter Sandra Monge [facility] Adult Medicine UNK - Ambulatory Encounter Sandra Hill [facility] Adult Medicine Hx Latent tuberculosis, s/p INH/B6Hx Bronchitis acute with bronchospasm - Ambulatory Encounter Buck Ledesma [facility] Behavioral Health UNK - Ambulatory Encounter Buck Kowalski [facility] UNK - Ambulatory Encounter Sandra Vargas [facility] Adult Medicine UNK - Ambulatory Encounter Sandra Vargas [facility] Adult Medicine UNK - Ambulatory Encounter Sandra Bush [facility] Services UNK - Ambulatory Encounter Buck Ledesma [facility] Behavioral Health UNK - Ambulatory Encounter Buck Ledesma LinkLogic [facility] Behavioral Health UNK - Ambulatory Encounter Buck Solarse [facility] Contact Center UNK - Ambulatory Encounter Sandra Castro [facility] Services UNK - Ambulatory Encounter Sandra Castro [facility] Adult Medicine UNK - Ambulatory Encounter Sandra Monge [facility] Adult Medicine UNK - Ambulatory Encounter Sandra Monge [facility] Adult Medicine UNK - Ambulatory Encounter Sandra Kessler [facility] Adult Medicine UNK - Ambulatory Encounter Sandra Monge LM Adult Medicine UNK - Ambulatory Encounter Sandra Kowalski [facility] Adult Medicine UNK - Ambulatory Encounter Nancy [facility] Services UNK - Ambulatory Encounter Khloe Lee [facility] Services UNK - Ambulatory Encounter Nancy Grafic [facility] Adult Medicine UNK - Ambulatory Encounter Buck Burris [facility] Behavioral Health UNK - Ambulatory Encounter Sandra Monge [facility] Adult Medicine UNK - Ambulatory Encounter Sandra Hill [facility] Adult Medicine Hx Latent tuberculosis, s/p [id number]/[id number] - Ambulatory Encounter Sandra Monge LinkLogic [facility] Adult Medicine UNK - Ambulatory Encounter Sandra Boss [facility] Adult Medicine UNK - Ambulatory Encounter Buck Clarke [facility] Services UNK - Ambulatory Encounter Buck Ledesma [facility] Behavioral Health UNK - Ambulatory Encounter Buck GoldsteinLogic [facility] Behavioral Health UNK - Ambulatory Encounter Sandra GoldsteinLogkendrick [facility] Adult Medicine UNK - Ambulatory Encounter Buck Caro Me[facility] Behavioral Health UNK - Ambulatory Encounter Buck Burris [facility] UNK - Ambulatory Encounter Lashaun Mckeon [facility] Services UNK - Ambulatory Encounter [facility] UNK - Ambulatory Encounter Buck Ledesma [facility] UNK - Ambulatory Encounter Buck Bliss [facility] UNK - Ambulatory Encounter Sandra GoldsteinLogic [facility] Adult Medicine UNK - Ambulatory Encounter Sandra Monge [facility] Adult Medicine UNK - Ambulatory Encounter Sandra Chen [facility] Adult Medicine Flu shot - Ambulatory Encounter Sandra GoldsteinLogkendrick [facility] Adult Medicine UNK - Ambulatory Encounter Sandra Chen [facility] Adult Medicine UNK - Ambulatory Encounter Sandra Monge [facility] Adult Medicine UNK - Ambulatory Encounter Sandra Chen [facility] Adult Medicine BMI < 20 - Ambulatory Encounter Sandra GoldsteinLogic [facility] Adult Medicine UNK - Ambulatory Encounter Sandra Monge [facility] Services UNK - Ambulatory Encounter Sandra Monge [facility] Adult Medicine UNK - Ambulatory Encounter Sandra Chen [facility] Adult Medicine Immunization updateVitamin D deficiency - [facility] - [facility] Encounter Jason Gilliam [facility] Services UNK - Ambulatory Encounter Sandra Hill [facility] Adult Medicine UNK - Ambulatory Encounter [facility] Care Coordination Desktop Dex Hill [facility] Services UNK - Ambulatory Encounter Sandra Monge [facility] Adult Medicine COPDHx Latent tuberculosis, s/p INH/B6 - Ambulatory Encounter Sandar Kowalski [facility] Adult Medicine UNK - Ambulatory Encounter Maximus Yancey [facility] [employer] UNK - Ambulatory Encounter Maximus Yancey [facility] [employer] UNK - Ambulatory Encounter Jason Nath [facility] Services UNK - Ambulatory Encounter Sandra GoldsteinLogkendrick [facility] Adult Medicine UNK - Ambulatory Encounter Maximus Yancey [facility] [employer] UNK - Ambulatory Encounter Sandra Mcgowan [facility] Adult Medicine UNK - Ambulatory Encounter Maximus Yancey [facility] [employer] UNK - Ambulatory Encounter Sandra Monge [facility] Adult Medicine UNK - Ambulatory Encounter Jasper Keller [facility] Behavioral Health DEPRESSIVE DISORDER, OTHER SPECIFIEDALCOHOL USE DISORDER, MODERATETOBACCO USE DISORDER, MODERATE - Ambulatory Encounter Sandra Jamison [facility] Adult Medicine - Ambulatory Encounter Sandra GoldsteinLogkendrick [facility] Adult Medicine UNK - Ambulatory Encounter Sandra Day [facility] Adult Medicine Screening for hypercholesterolemia - Ambulatory Encounter Adrian Cristina [facility] Public Health Services UNK - Ambulatory Encounter Sandra Monge LinkLogkendrick [facility] Vision UNK VITAL SIGNS No Information Available [...] creatinine, urine, 24 hour 2076 mg/24h LinkLogic [id number] High " creatinine, random, urine 38.1 mg/dL [...] creatinine, urine, 24 hour 1562 mg/24h LinkLogic [id number] " creatinine, random, urine 25.4 mg/dL LinkLogic [...] LinkLogic 12.0-35.5 High " absolute CD8 1293 [phone] High " T-helper cells (CD4) as percent of blood lymphocytes 46.6 % [facility] 30.8-58.5 " T-helper cells (CD4) count 1258 /UL LinkLog [phone] vitamin D 25-hydroxy, serum 15.4 ng/mL [facility] 30.0-100.0 Low " rapid plasma reagin antibody, serum Non Reactive LinkLog Non Reactive " HIV-1RNA, serum, by PCR, quantitative 30 /mL [facility] " LDL cholesterol, serum 78 mg/dL LinkLog [...] >3.0 " B-12, serum 471 pg/mL LinkLogic [phone]/04/21 human leukocyte antigen B57 negative Sandra Monge [...] Vaccine Dose Lot Number Status joleneact im [facility] [address]-26 sanofi pasteur 0.5 mL [id number] completed HISTORY OF MEDICATION USE Medication Instructions [...] very busy though". Not homeless. Born in [facility]. City: [place]. State: [place]. Lives w/ mom and step-father in [address] Unemployed since November 2016. Highest education level: bachelor's degree. Not in workforce. Not on disability. 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 Bachelor's degree in [employer] Literature at [employer]. Sex at : Male. Sexual orientation: Palacio. [...] very busy though". Not homeless. Born in [facility]. City: [place]. State: [place]. Lives w/ mom and step-father in [address] Unemployed since November 2016. Highest education level: bachelor's degree. Not in workforce. Not on disability. 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 Bachelor's degree in [employer] Literature at [employer]. Sex at : Male. Sexual orientation: Palacio. Gender identity: Male. Gender of partner(s): Male. Age of first sexual intercourse: 17. Sexually Active: No. Not sexually active. Dorothy Pineda " social history reviewed E&M reviewed today Dorohty Pineda " assessment of health literacy ([facility] 2014 Standards, 3C10) Adequate Dorothy Pineda [...] though". Not homeless. Born [place]. City: [place]. State: [place]. Lives w/ mom and step-father in [place], cats. Unemployed since November 2016. Highest education level: bachelor's degree. Not in workforce. Not on disability. 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 Bachelor's degree in [place] Literature at [employer]. Sex at : Male. Sexual orientation: Palacio. Gender identity: Male. Gender of partner(s): Male. Age of first sexual intercourse: 17. Sexually Active: No. Not sexually active. Marcelino Flores " social history reviewed E&M reviewed today Marcelino Flores " sexual orientation Palacio Dylon Walker " is there any chance that you could be ? No Dylon Walker " assessment of health literacy ([facility] 2014 Standards, 3C10) Adequate Dylon Belle SuárezAaron " passive cigarette smoke exposure No Dylon E Aaron " smoking status current every day smoker Dylon Walker " alcohol use Currently Ydlon E Aaron " social history E&M Single. Single. Parents when pt was age 16, mother and father both remarried. Relationship with father "I love him but don't like him... we talk on phone 1x a week". Relationship with mother and step-father "perfect and very good". One younger brother, "get along well, he is very busy though". Not homeless. Born [place] City: [place]. State: [place]. Lives w/ mom and step-father in [place], cats. Unemployed since November 2016. Highest education level: bachelor's degree. Not in workforce. Not on disability. 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 Bachelor's degree in [place] Literature at [employer]. Sex at : Male. Sexual orientation: Palacio. [...] very busy though". Not homeless. Born in [facility]. City: [place]. State: [place]. Lives w/ mom and step-father in [place], cats. Unemployed since November 2016. Highest education level: bachelor's degree. Not in workforce. Not on disability. 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 Bachelor's degree in [place] Literature at [employer]. Sex at : Male. Sexual orientation: Palacio. Gender identity: Male. Gender of partner(s): Male. Age of first sexual intercourse: 17. Sexually Active: No. Not sexually active. Dorothy Pineda " social history reviewed E&M reviewed today Dorothy Pineda " assessment of health literacy ([facility] 2014 Standards, 3C10) Adequate Dorothy Pineda [...] very busy though". Not homeless. Born in [facility]. City: [place]. State: [place]. Lives w/ mom and step-father in [place], 2 cats. Unemployed since November 2016. Highest education level: bachelor's degree. Not in workforce. Not on disability. 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 Bachelor's degree in [place] Literature at [employer]. Sex at : Male. Sexual orientation: Palacio. Gender identity: Male. Gender of partner(s): Male. Age of first sexual intercourse: 17. Sexually Active: No. Not sexually active. Cliff Jackson " social history reviewed E&M reviewed today Cliff Jackson " is there any chance that you could be ? No Cliff Jackson " assessment of health literacy ([facility] 2014 Standards, 3C10) Adequate Cliff Jackson [...] very busy though". Not homeless. Born in [facility]. City: [place]. State: [place]. Lives w/ mom and step-father in [place], 2 cats. Unemployed since November 2016. Highest education level: bachelor's degree. Not in workforce. Not on disability. 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 Bachelor's degree in [place] Literature at [employer]. Sex at : Male. Sexual orientation: Palacio. Gender identity: Male. Gender of partner(s): Male. Age of first sexual intercourse: 17. Sexually Active: No. Not sexually active. Cliff Jackson " social history reviewed E&M reviewed today Cliff Jackson " is there any chance that you could be ? No Cliff Jackson " assessment of health literacy ([facility] 2014 Standards, 3C10) Adequate Cliff Jackson " passive cigarette smoke exposure Yes Cliff Jackson " smoking status current every day smoker Cliff Jackson " smoking, advice to quit Yes Sandra Monge " Exercise Program Referral T Sandra Monge " Weight Management Counseling Provided T Sandra Monge " Nutrition intervention T Sandra Monge " drug use, illicit Previously Angi [place] " alcohol use Currently Angi Juan " [...] though". Not homeless. Born [place] City: [place]. State: [place]. Lives w/ mom and step-father in [place], cats. Unemployed since November 2016. Highest education level: bachelor's degree. Not in workforce. Not on disability. 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 Bachelor's degree in [place] Literature at [employer]. Sex at : Male. Sexual orientation: Palacio. Gender identity: Male. Gender of partner(s): Male. Age of first sexual intercourse: 17. Sexually Active: No. Not sexually active. Angi [place] " social history reviewed E&M reviewed today Angi Juan " sexual orientation Palacio Angi Hessrod " is there any chance that you could be ? No Angi Juan " assessment of health literacy ([facility] 2014 Standards, 3C10) Adequate Angi Juan " [...] Monge " drug use, illicit Previously Angi [place] " alcohol use Currently Anginava Martinez " [...] very busy though". Not homeless. Born in [facility]. City: [place]. State: [place]. Lives w/ mom and step-father in [place], [facility]. Unemployed since November 2016. Highest education level: bachelor's degree. Not in workforce. Not on disability. 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 Bachelor's degree in [place] Literature at [employer]. Sex at : Male. Sexual orientation: Palacio. Gender identity: Male. Gender of partner(s): Male. Age of first sexual intercourse: 17. Sexually Active: No. Not sexually active. Angi [place] " social history reviewed E&M reviewed today Angi Juan " sexual orientation Palacio Angi Hessrod " is there any chance that you could be ? No Angi [place] " assessment of health literacy ([facility] 2014 Standards, 3C10) Adequate Angi Juan " passive cigarette smoke exposure Yes Angi Hessrod " smoking status current every day smoker Angi [place] sexual orientation Palacio Alexandra Hoffmann sexual orientation [...] very busy though". Not homeless. Born in [facility]. City: [place]. State: [place]. Lives w/ mom and step-father in [place], 2 cats. Unemployed since November 2016. Highest education level: bachelor's degree. Not in workforce. Not on disability. 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 Bachelor's degree in [place] Literature at [employer]. Sex at : Male. Sexual orientation: Palacio. [...] Michelle Hill " assessment of health literacy ([facility] 2014 Standards, 3C10) Adequate Michelleadam Hill " [...] " assessment of health literacy ([facility] 2014 Standards, 3C10) Adequate Elizabeth Kessler " Exercise Program Referral T Elizabeth Kessler " Weight Management Counseling Provided Mendez Kessler " Nutrition intervention Mendez Kessler smoking status current every day smoker Buck Ledesma Exercise Program Referral T Sandra Monge " Weight Management Counseling Provided T Sandra Monge " Nutrition intervention T Sandra Monge " drug use, illicit Previously Micehlle Hill " alcohol use Currently Michelle Sergio " is there any chance that you could be ? No Michelle Hill " passive cigarette smoke exposure No Michelle Hill " smoking status current every day smoker Michelle Hill " assessment of health literacy ([facility] 2014 Standards, 3C10) Adequate Michelle Sergio [...] very busy though". Not homeless. Born in [facility]. City: [place]. State: [place]. Lives w/ mom and step-father in [place], 2 cats. Unemployed since November 2016. Highest education level: bachelor's degree. Not in workforce. Not on disability. 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 Bachelor's degree in [place] Literature at [employer]. Sex at : Male. Sexual orientation: Palacio. [...] Deepika Chen " assessment of health literacy ([facility] 2014 Standards, 3C10) Adequate Depeika Chen Exercise Program Referral Mendez Monge " [...] very busy though". Not homeless. Born in [facility]. City: [place]. State: [place]. Lives w/ mom and step-father in [place], 2 cats. Unemployed since November 2016. Highest education level: bachelor's degree. Not in workforce. Not on disability. 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 Bachelor's degree in [place] Literature at [employer]. Sex at : Male. Sexual orientation: Palacio. [...] Deepika Chen " assessment of health literacy ([facility] 2014 Standards, 3C10) Adequate Deepika Chen Exercise Program Referral Mendez Monge " Weight Management Counseling Provided Mendez Monge " Nutrition intervention Mendez Monge " smoking, advice to quit Yes Sandra Monge " drug use, illicit Previously Deepika Chen " alcohol use Currently Deepika Cehn " social history E&M Single. Single. Parents when pt was age 16, mother and father both remarried. Relationship with father "I love him but don't like him... we talk on phone 1x a week". Relationship with mother and step-father "perfect and very good". One younger brother, "get along well, he is very busy though". Not homeless. Born in [facility]. City: [place]. State: [place]. Lives w/ mom and step-father in [place], cats. Unemployed since November 2016. Highest education level: bachelor's degree. Not in workforce. Not on disability. 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 Bachelor's degree in [place] Literature at [employer]. Sex at : Male. Sexual orientation: Palacio. [...] Deepika Chen " assessment of health literacy ([facility] 2014 Standards, 3C10) Adequate Deepika Chen [...] very busy though". Not homeless. Born in [facility]. City: [place]. State: [place]. Lives w/ mom and step-father in [place], cats. Unemployed since November 2016. Highest education level: bachelor's degree. Not in workforce. Not on disability. 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 Bachelor's degree in [place] Literature at [employer]. Sex at : Male. Sexual orientation: Palacio. [...] assessment Lives w/ mom and step-father in [place], 2 cats. Jasper Bobo " social history reviewed E&M reviewed today Sandra Monge " social history E&M Single. Spouse/Partner/Significant Other: n/a. Family is aware and supportive. Not homeless. Born in [facility]. City: [place]. State: [place]. Lives in [facility] in [facility]. Not employed. Highest education level: bachelor's degree. [...] Monge " home/family situation, assessment [place] in [facility] and stepdad in [facility]. Sandra Monge " family support Family is aware and supportive. Sandra Monge " smoking, advice to quit Yes Sandra Monge " assessment of health literacy ([facility] 2014 Standards, 3C10) Adequate Sandra Monge [...] reality Garettmaritza Ledesma " hallucinations none [facility]itza [facility] " thought content (mental status exam) (E&M) [...] E&M no depression, anxiety, or agitation Sandra oMnge " Generalized Anxiety Disorder Questionnaire - Question [...] name Policy type / Coverage type Covered republican ID *Jasper White 0-100% Other [id number] Sliding Fee - Cat 1 [employer] insurance [place] [id number] *Jasper White 0-100% Other Sliding Fee - Cat 1 [employer] insurance company *Jasper White 0-100% Other [id number] *Jasper White 0-100% Other Sliding Fee - Cat 1 [employer] insurance [place] [id number] *Jasper White 0-100% Other [id number] ADVANCE DIRECTIVES Name Date DISCUSSED - NO [...] - - Est Patient Exp Problem - 41963 Est Patient Detailed - 94499 Est Patient Detailed - 12410 Est Patient Exp Problem - 79449 Est Patient Exp Problem - 44525 Ofc Vst, Est Level III Est Patient Detailed - 58435 First Vx - Ix admin via ID IM or jet injects without counseling by physician Menactra Intramuscular Injectable Vision Vaccines Ordered - Print Consent/Declination Forms Ofc Vst, Est Level IV Xray - Chest - 2 Views - InHouse Handling of specimen for transfer Venipuncture Est Patient Detailed - 97621 Dispensing Visit (UNLIVSTED OPHTHALMOLOGICAL SERVICE/PROCEDURE) INFLUENZA VACCINE QUADRIVALENT 3 YRS PLUS IM Pneumovax Vaccine PPSV23 Admin of Vaccine - Injection - Each Add'l Admin of Vaccine - Injection - 1 Est Patient Detailed - 08122 Progressive lens, per lens Frames, purchases Est Patient Comprehensive Opth - 75653 New Patient Intermediate Opth - 43461 Est Patient Detailed - 39417 Est Patient Detailed - 84341 Est Patient Detailed - 62759 Est Patient Detailed - 92127 Est Patient Exp Problem - 07197 Est Patient Detailed - 43677 Diagnostic evaluation with medical - 69843 INFLUENZA VACCINE QUADRIVALENT 3 YRS PLUS IM Admin of Vaccine - Injection - 1 Est Patient Detailed - 80761 Est Patient Detailed - 06772 Prevnar (PCV13) IM TDAP Admin of Vaccine - Injection - Each Add'l Admin of Vaccine - Injection - 1 Est Patient Well Exam (40 - 64 Yrs) - 33069 Primary Care Service [facility] - Psychiatry Diagnostic evaluation (no medical) - 54810 [facility] Assessment - French Professor Primary Care Service Link[facility] Xray - Chest - PA & Lat - InHouse Primary Care Service Linkage Handling of specimen for transfer Venipuncture Integrated Behavioral Health Assessment (IBH) New Patient Well Exam (40 - 64 Yrs) - 70030 Handling of specimen for transfer Venipuncture HISTORY OF PROCEDURES Procedure Date Procedure Name Provider Procedure Notes Status First Vx - Ix admin via ID IM or jet injects without counseling by physician Nela Schroeder completed Menactra Intramuscular Injectable Nela Schroeder completed Vaccines Ordered - Print Consent/Declination Forms Nelairina Schroeder completed Venipuncture Sandra Monge completed Dispensing Visit (UNLIVSTED OPHTHALMOLOGICAL SERVICE/PROCEDURE) Jazmin Bullard completed Progressive lens, per lens Jazmin Bullard completed Frames, purchases Jazmin Bullard Frame #1111 (Pd 60.00) completed Est Patient Comprehensive Opt - 36588 Edgard Martin completed New Patient Intermediate Opth - 45353 Chriss Martin completed Diagnostic evaluation with medical - 04348 Buck Ledesma completed Primary [facility] Service [facility] Maximus Yancey Time spent with patient: 30 completed Diagnostic evaluation (no medical) - 13311 Jasper Bobo completed [facility] Assessment - French Professor Jasper Bobo completed Primary Care Service Linkage Maximus Yancey Time spent with patient: 30 completed Primary Care Service Linkage Maximus Yancey Time spent with patient: 30 completed Venipuncture Sandra Monge completed Venipuncture Sandra Monge completed GOALS No Information Available [facility] No Information Available
--- OUTSIDE RECORDS SUMMARY | 2020-02-03 02:29 | XMS REPORT ---
Author Author Admin, [place] Organization Unknown Address Unknown Phone Unavailable PROBLEMS [...] Diagnosis - Ambulatory Encounter Nela Alexandre Schroeder [facility] Adult Medicine UNK - Ambulatory Encounter Nelairina Cruz [facility] UNK - Ambulatory Encounter Marcelino Leoz Callizo Rosy Ghosh [facility] Behavioral Health UNK - Ambulatory Encounter Nelairina Lanza MedAdherence, [facility] Adult Medicine UNK - Ambulatory Encounter Nelairina Schroeder [facility] Adult Medicine UNK - Ambulatory Encounter Nelairina Pineda [facility] Adult Medicine UNK - Ambulatory Encounter Nelairina Lanza MedAdherence, [facility] Adult Medicine UNK - Ambulatory Encounter Marcelino Leoz Callizo [facility] Behavioral Health UNK - Ambulatory Encounter Marcelino Leoz Callizo Thida Santos [facility] Behavioral Health UNK - Ambulatory Encounter Nela Wayneh Nela Schroeder LinkLogkendrick LM Adult Medicine UNK - Ambulatory Encounter Nela Wayneh Nela Canasnth [facility] Adult Medicine UNK - Ambulatory Encounter Nela Missaelnth Nela Blackh Dylon Walker [facility] Adult Medicine Abscess, axilla, right - Ambulatory Encounter Sandra Lanza MedAdherence, [facility] Adult Medicine UNK - Ambulatory Encounter Dorothy Alberts [facility] Contact Center UNK - Ambulatory Encounter Isi Bliss [facility] Contact Center UNK - Ambulatory Encounter Buck Arringtons Isi Isbell [facility] Contact Center UNK - Ambulatory [...] Medicine UNK - Ambulatory Encounter Dorothy Nash [facility] Contact Center UNK - Ambulatory Encounter Rinal Recinos LinkLogic LM Adult Medicine UNK - Ambulatory Encounter Nazjely Manuel [facility] Adult Medicine UNK - Ambulatory Encounter Nela Canasbethanykirill [facility]ic [facility] Adult Medicine UNK - Ambulatory Encounter Nela Canasnth [facility] Adult Medicine UNK - Ambulatory Encounter Dorothy Travisirina Canasbethanykirill Canasbethanyh Srinath Javed [facility] Contact Center UNK - Ambulatory Encounter Nela Canasbethanykirill Rondon Santikendraanthony LinkLogic LM Adult Medicine UNK - Ambulatory Encounter Martha Stallworth [facility] Public Health Services UNK - Ambulatory Encounter Nela Canasbethanykirill [place]ondon Santikendraanthony LM Adult Medicine UNK - Ambulatory Encounter Nela Canasbethanykirill Kari Stallworth [facility] Adult Medicine HIV infectionHepatitis A immunityHepatitis B immunity - Ambulatory Encounter Cliff Napier [facility] Contact Center UNK - Ambulatory [...] Medicine UNK - Ambulatory Encounter Sandra Monge [facility] Adult Medicine Osteopenia - Ambulatory Encounter Cliff Jackson [facility] Adult Medicine UNK - Ambulatory Encounter Destinishara Recinos [facility] Adult Medicine UNK - Ambulatory Encounter Rinal Recinos Cliff Jackson [facility] Adult Medicine UNK - Ambulatory Encounter Cliff Jackson [facility] Adult Medicine UNK - Ambulatory Encounter Cliff Jackson LinkLogic [facility] Adult Medicine UNK - Ambulatory Encounter Sandra Monge LinkLogic Destinial Recinos [facility] Adult Medicine UNK - Ambulatory Encounter Sandra Monge LinkLogic Meghna Arnold [facility] Adult Medicine UNK - Ambulatory Encounter Fax Status [facility] - [facility]ulatory Encounter Fax Status [facility] UN[facility] - Ambulatory Encounter Fax Status LinkLogic [facility] Services UNK - Ambulatory Encounter Fax Status [facility] UN[facility] - Ambulatory Encounter Mare Georgesal Recinos Ragini Murillo [facility] Adult Medicine UNK - Ambulatory Encounter Rinal Recinos LinkLogic Mare Carbajal [facility] Adult Medicine UNK - Ambulatory Encounter Jeromy Recinos TristonLogic [facility] Adult Medicine UNK - Ambulatory Encounter Meghna Nash [facility] Adult Medicine UNK - Ambulatory Encounter Fax Status [facility] Services UNK - Ambulatory Encounter Fax Status [facility] UNK - Ambulatory Encounter Sandra Monge [facility] Adult Medicine UNK - Ambulatory Encounter Sandra Nash [facility] Adult Medicine UNK - Ambulatory Encounter Lashaun Monge [facility] UNK - Ambulatory [facility] - Ambulatory Encounter Jeromy Recinos [facility] Adult Medicine UNK - Ambulatory Encounter Jeromy Jackson [facility] Adult Medicine UNK - Ambulatory Encounter Cliff Jackson [facility] Adult Medicine UNK - Ambulatory Encounter Meghna Nash [facility] Adult Medicine UNK - Ambulatory Encounter Cliff Jackson [facility] Adult Medicine UNK - Ambulatory Encounter Fax Status [facility] Services UNK - Ambulatory Encounter Fax Status [facility] UNK - Ambulatory Encounter Sandra Monge LinkLogic [facility] Adult Medicine UNK - Ambulatory Encounter Sandra Monge [facility] Adult Medicine UNK - Ambulatory Encounter Sandra Zhaoberrachell Quiles [facility] Adult Medicine Increased transaminase level - Ambulatory Encounter Sandra GoldsteinLogkendrick [facility] Adult Medicine UNK - Ambulatory Encounter Sandra Ballardra [facility] Adult Medicine UNK - Ambulatory Encounter Sandra GoldsteinLogkendrick [facility] Adult Medicine UNK - Ambulatory Encounter Sandra Monge [facility] Adult Medicine UNK - Ambulatory Encounter Sandra Tellez Ausra Anginava Martinez [facility] Adult Medicine Hx Bronchitis acute with bronchospasmHyponatremiaHyperkalemiaHypercalcemia - Ambulatory Encounter Sandra Lanza MedAdherence, [facility] Adult Medicine UNK - Ambulatory Encounter Sandra Lanza MedAdherence, [facility] Adult Medicine UNK - Ambulatory Encounter Cliff Jackson [facility] Adult Medicine UNK - Ambulatory Encounter Sandra Monge [facility] Adult Medicine UNK - Ambulatory Encounter Sandra Jackson [facility] Adult Medicine UNK - Ambulatory Encounter Sandra Lanza MedAdherence, [facility] Adult Medicine UNK - Ambulatory Encounter Sandra Lanza MedAdherence, [facility] Adult Medicine UNK - Ambulatory Encounter Boni Cristina [facility] Public Health Services UNK - Ambulatory Encounter Jazmin Bullard [facility] Vision UNK - Ambulatory Encounter Jazmin Bullard [facility] Vision UNK - Ambulatory Encounter Sandra GoldsteinLogic [facility] Adult Medicine UNK - Ambulatory Encounter Sandra GoldsteinLogkendrick [facility] Adult Medicine UNK - Ambulatory Encounter Sandra Monge [facility] Adult Medicine UNK - Ambulatory Encounter Sandra Martinez [facility] Adult Medicine Onychomycosis, toenailsImmunization update - Ambulatory Encounter Jazmin Bullard [facility] Vision UNK - Ambulatory Encounter Edgard Song Martinmargi Martin [facility] Vision UNK - Ambulatory Encounter Edgard Martin [facility] Vision UNK - Ambulatory Encounter Edgard Song Mario Hoffmann [facility] Vision SPECIAL SCREENING EXAMINATION OTH SPEC VIRAL DZ - Ambulatory Encounter Chriss [facility] Vision UNK - Ambulatory Encounter Chrissjesus Martin [facility] Vision UNK - Ambulatory Encounter Chrissjesus Martin [facility] Vision UNK - Ambulatory Encounter Chrissjesus Bullard [facility] Vision Myopia - OURegular astigmatism, bilateralPresbyopia - OU - Ambulatory Encounter Sandra Monge LinkLogic [facility] Adult Medicine UNK - Ambulatory Encounter Sandra Vargas [facility] Adult Medicine UNK - Ambulatory Encounter Sandra Vargas [facility] Adult Medicine UNK - Ambulatory Encounter Sandra Yancey MedAdherence [facility] Adult Medicine UNK - Ambulatory Encounter Sandra Lanza MedAdherence, [facility] Adult Medicine UNK - Ambulatory Encounter Sandra Lanza [facility]herence, [facility] Adult Medicine UNK - Ambulatory Encounter Sandra Lanza MedAdherence, [facility] Adult Medicine UNK - Ambulatory Encounter Sandra Lanza MedAdherence, [facility] Adult Medicine UNK - Ambulatory Encounter Sandra Lanza MedAdherence, [facility] Adult Medicine UNK - Ambulatory Encounter Sandra Lanza MedAdherence, [facility] Adult Medicine UNK - Ambulatory Encounter Khloe Mckeon [facility] UNK - Ambulatory Encounter Khloe Lee [facility] UNK - Ambulatory Encounter Amaury Nath [facility] Adult Medicine UNK - Ambulatory Encounter Amaury Nath [facility] Adult Medicine UNK - Ambulatory Encounter Sandra Monge [facility] Adult Medicine UNK - Ambulatory Encounter Sandra Monge [facility] Adult Medicine UNK - Ambulatory Encounter Sandra Hill [facility] Adult Medicine Hx Latent tuberculosis, s/p INH/B6Hx Bronchitis acute with bronchospasm - Ambulatory Encounter Buck Ledesma [facility] Behavioral Health UNK - Ambulatory Encounter Buck Kowalski [facility] Behavioral Health UNK - Ambulatory Encounter Sandra Vargas [facility] Adult Medicine UNK - Ambulatory Encounter Sandra Vargas [facility] Adult Medicine UNK - Ambulatory Encounter Sandra Bush [facility] Services UNK - Ambulatory Encounter Buck Ledesma [facility] Behavioral Health UNK - Ambulatory Encounter Buck Ledesma LinkLogic [facility] Behavioral Health UNK - Ambulatory Encounter Buck Solares [facility] Services Contact Center UNK - Ambulatory Encounter Sandra Castro [facility] Services UNK - Ambulatory Encounter Sandra Castro [facility] Adult Medicine UNK - Ambulatory Encounter Sandra Monge [facility] Adult Medicine UNK - Ambulatory Encounter Sandra Monge [facility] Adult Medicine UNK - Ambulatory Encounter Sandra Kessler [facility] Adult Medicine UNK - Ambulatory Encounter Sandra Monge [facility] Adult Medicine UNK - Ambulatory Encounter Sandra Kowalski [facility] Adult Medicine UNK - Ambulatory Encounter Nancy [facility] Services UNK - Ambulatory Encounter Khloe Lee [facility] Services UNK - Ambulatory Encounter Nancy Grafic [facility] Adult Medicine UNK - Ambulatory Encounter Buck Burris [facility] Behavioral Health UNK - Ambulatory Encounter Sandra Monge [facility] Adult Medicine UNK - Ambulatory Encounter Sandra Hill [facility] Adult Medicine Hx Latent tuberculosis, s/p [id number] - Ambulatory Encounter Sandra Monge LinkLogic [facility] Adult Medicine UNK - Ambulatory Encounter Sandra Boss [facility] Adult Medicine UNK - Ambulatory Encounter Buck Clarke [facility] Services UNK - Ambulatory Encounter Buck Ledesma [facility] Behavioral Health UNK - Ambulatory Encounter Buck GoldsteinLogic [facility] Behavioral Health UNK - Ambulatory Encounter Sandra GoldsteinLogkendrick [facility] Adult Medicine UNK - Ambulatory Encounter Buck Caro [facility] Behavioral Health UNK - Ambulatory Encounter Buck Burris [facility] Behavioral Health UNK - Ambulatory Encounter Lashaun Mckeon [facility] Services UNK - Ambulatory Encounter [facility] UNK - Ambulatory Encounter Buck Ledesma [facility] Behavioral Health UNK - Ambulatory Encounter Buck Bliss [facility] Behavioral Health UNK - Ambulatory Encounter Sandra GoldsteinLogic [facility] Adult Medicine UNK - Ambulatory Encounter Sandra Monge [facility] Adult Medicine UNK - Ambulatory Encounter Sandra Chen [facility] Adult Medicine Flu shot - Ambulatory Encounter Sandra GoldsteinLogkendrick [facility] Adult Medicine UNK - Ambulatory Encounter Sandra Chen [facility] Adult Medicine UNK - Ambulatory Encounter Sandra Monge [facility] Adult Medicine UNK - Ambulatory Encounter Sandra Chen [facility] Adult Medicine BMI < 20 - Ambulatory Encounter Sandra GoldsteinLogic [facility] Adult Medicine UNK - Ambulatory Encounter Sandra Monge [facility] UNK - Ambulatory Encounter Sandra Monge [facility] Adult Medicine UNK - Ambulatory Encounter Sandra Chen [facility] Adult Medicine Immunization updateVitamin D deficiency - [facility] - Ambulatory Encounter Jason Gilliam [facility] Services UNK - Ambulatory Encounter Sandra Hill [facility] Adult Medicine UNK - Ambulatory Encounter [facility] Care Coordination Desktop Dex Hill [facility] Services UNK - Ambulatory Encounter Sandra Monge [facility] Adult Medicine COPDHx Latent tuberculosis, s/p INH/B6 - Ambulatory Encounter Sandra Kowalski [facility] Adult Medicine UNK - Ambulatory Encounter Maximus Yancey [facility] Machine [employer] UNK - Ambulatory Encounter Maximus Yancey [facility] Machine [employer] UNK - Ambulatory Encounter Jason Nath [facility] Services UNK - Ambulatory Encounter Sandra GoldsteinLogkendrick [facility] Adult Medicine UNK - Ambulatory Encounter Maximus Yancey [facility] Machine [employer] UNK - Ambulatory Encounter Sandra Mcgowan [facility] Adult Medicine UNK - Ambulatory Encounter Maximus Yancey [facility] Machine [employer] UNK - Ambulatory Encounter Sandra Monge [facility] Adult Medicine UNK - Ambulatory Encounter Jasper Keller [facility] Behavioral Health DEPRESSIVE DISORDER, OTHER SPECIFIEDALCOHOL USE DISORDER, MODERATETOBACCO USE DISORDER, MODERATE - Ambulatory Encounter Sandra Jamison [facility] Adult Medicine - Ambulatory Encounter Sandra GoldsteinLogkendrick [facility] Adult Medicine UNK - Ambulatory Encounter Sandra Day [facility] Adult Medicine Screening for hypercholesterolemia - Ambulatory Encounter Adrian Cristina [facility] Public Health Services UNK - Ambulatory Encounter Sandra Monge LinkLogkendrick [facility] Vision UNK VITAL SIGNS No [...] creatinine, urine, 24 hour 2076 mg/24h LinkLogic [id number] High " creatinine, random, urine 38.1 mg/dL [...] creatinine, urine, 24 hour 1562 mg/24h LinkLogic [id number] " creatinine, random, urine 25.4 mg/dL LinkLogic [...] LinkLogic 12.0-35.5 High " absolute CD8 1293 [phone] High " T-helper cells (CD4) as percent of blood lymphocytes 46.6 % [facility] 30.8-58.5 " T-helper cells (CD4) count 1258 /UL LinkLog [phone] vitamin D 25-hydroxy, serum 15.4 ng/mL [facility] 30.0-100.0 Low " rapid plasma reagin antibody, serum Non Reactive LinkLog Non Reactive " HIV-1RNA, serum, by PCR, quantitative 30 /mL [facility] " LDL cholesterol, serum 78 mg/dL LinkLog [...] >3.0 " B-12, serum 471 pg/mL LinkLogic [phone]/04/21 human leukocyte antigen B57 negative Sandra Monge [...] Vaccine Dose Lot Number Status joleneact im [facility] [address]-41 sanofi pasteur 0.5 mL [id number] completed HISTORY OF MEDICATION USE Medication Instructions [...] very busy though". Not homeless. Born in [facility]. City: [place]. State: [place]. Lives w/ mom and step-father in [address] Unemployed since November 2016. Highest education level: bachelor's degree. Not in workforce. Not on disability. 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 Sex at : Male. [...] very busy though". Not homeless. Born in [facility]. City: [place]. State: [place]. Lives w/ mom and step-father in [address] Unemployed since November 2016. Highest education level: bachelor's degree. Not in workforce. Not on disability. 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 Sex at : Male. Sexual orientation: Palacio. Gender identity: Male. Gender of partner(s): Male. Age of first sexual intercourse: 17. Sexually Active: No. Not sexually active. Dorothy Pineda " social history reviewed E&M reviewed today Dorothy Pineda " assessment of health literacy ([facility] 2014 Standards, 3C10) Adequate Dorothy Pineda " [...] though". Not homeless. Born in [place]. City: [place]. State: [place]. Lives w/ mom and step-father in [place], cats. Unemployed since November 2016. Highest education level: bachelor's degree. Not in workforce. Not on disability. 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 Sex at : Male. [...] Dylon Walker " assessment of health literacy ([facility] 2014 Standards, 3C10) Adequate Dylon Belle SuárezAaron [...] though". Not homeless. Born in [place]. City: [place]. State: [place]. Lives w/ mom and step-father in [place], cats. Unemployed since November 2016. Highest education level: bachelor's degree. Not in workforce. Not on disability. 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 Sex at : Male. [...] very busy though". Not homeless. Born in [facility]. City: [place]. State: [place]. Lives w/ mom and step-father in [place], cats. Unemployed since November 2016. Highest education level: bachelor's degree. Not in workforce. Not on disability. 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 Sex at : Male. Sexual orientation: Palacio. Gender identity: Male. Gender of partner(s): Male. Age of first sexual intercourse: 17. Sexually Active: No. Not sexually active. Dorothy Pineda " social history reviewed E&M reviewed today Dorothy Pineda " assessment of health literacy ([facility] 2014 Standards, 3C10) Adequate Dorothy Pineda " [...] very busy though". Not homeless. Born in [facility]. City: [place]. [place]: [place]. Lives w/ mom and step-father in [place], 2 cats. Unemployed since November 2016. Highest education level: bachelor's degree. Not in workforce. Not on disability. 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 Sex at : Male. Sexual orientation: Palacio. Gender identity: Male. Gender of partner(s): Male. Age of first sexual intercourse: 17. Sexually Active: No. Not sexually active. Cliff Jackson " social history reviewed E&M reviewed today Cliff Jackson " is there any chance that you could be ? No Cliff Jackson " assessment of health literacy ([facility] 2014 Standards, 3C10) Adequate Cliff Jackson " [...] very busy though". Not homeless. Born in [facility]. City: [place]. [place]: [place]. Lives w/ mom and step-father in [place], 2 cats. Unemployed since November 2016. Highest education level: bachelor's degree. Not in workforce. Not on disability. 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 Sex at : Male. Sexual orientation: Palacio. Gender identity: Male. Gender of partner(s): Male. Age of first sexual intercourse: 17. Sexually Active: No. Not sexually active. Cliff Jackson " social history reviewed E&M reviewed today Cliff Jackson " is there any chance that you could be ? No Cliff Jackson " assessment of health literacy ([facility] 2014 Standards, 3C10) Adequate Cliff Jackson " passive cigarette smoke exposure Yes Cliff Jackson " smoking status current every day smoker Cliff Jackson " smoking, advice to quit Yes Sandra Monge " Exercise Program Referral T Sandra Monge " Weight Management Counseling Provided T Sandra Monge " Nutrition intervention T Sandra Monge " drug use, illicit Previously Angi Stowell " alcohol use Currently Angi Juan " [...] though". Not homeless. Born in [place]. City: [place]. [place]: [place]. Lives w/ mom and step-father in [place], cats. Unemployed since November 2016. Highest education level: bachelor's degree. Not in workforce. Not on disability. 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 Sex at : Male. Sexual orientation: Palacio. Gender identity: Male. Gender of partner(s): Male. Age of first sexual intercourse: 17. Sexually Active: No. Not sexually active. Angi Stowell " social history reviewed E&M reviewed today Angi Juan " sexual orientation Palacio Angi Hessrod " is there any chance that you could be ? No Angi Juan " assessment of health literacy ([facility] 2014 Standards, 3C10) Adequate Angi Juan " [...] Monge " drug use, illicit Previously Angi Stowell " alcohol use Currently Anginava Martinez " [...] very busy though". Not homeless. Born in [facility]. City: [place]. State: [place]. Lives w/ mom and step-father in [place], [facility]. Unemployed since November 2016. Highest education level: bachelor's degree. Not in workforce. Not on disability. 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 Sex at : Male. Sexual orientation: Palacio. Gender identity: Male. Gender of partner(s): Male. Age of first sexual intercourse: 17. Sexually Active: No. Not sexually active. Angi Stowell " social history reviewed E&M reviewed today Angi Juan " sexual orientation Palacio Angi Hessrod " is there any chance that you could be ? No Angi Stowell " assessment of health literacy ([facility] 2014 Standards, 3C10) Adequate Angi Juan " passive cigarette smoke exposure Yes Angi Hessrod " smoking status current every day smoker Angi Stowell sexual orientation Palacio Alexandra Hoffmann sexual orientation [...] very busy though". Not homeless. Born in [facility]. City: [place]. State: [place]. Lives w/ mom and step-father in [place], 2 cats. Unemployed since November 2016. Highest education level: bachelor's degree. Not in workforce. Not on disability. 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 Sex at : Male. [...] Michelle Hill " assessment of health literacy ([facility] 2014 Standards, 3C10) Adequate Michelleadam Hill " [...] " assessment of health literacy ([facility] 2014 Standards, 3C10) Adequate Elizabeth Kessler " [...] Michelle Hill " assessment of health literacy ([facility] 2014 Standards, 3C10) Adequate Michelle Sergio smoking [...] very busy though". Not homeless. Born in [facility]. City: [place]. State: [place]. Lives w/ mom and step-father in [place], 2 cats. Unemployed since November 2016. Highest education level: bachelor's degree. Not in workforce. Not on disability. 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 Sex at : Male. [...] " assessment of health literacy ([facility] 2014 Standards, 3C10) Adequate Deepika Chen Exercise [...] very busy though". Not homeless. Born in [facility]. City: [place]. State: [place]. Lives w/ mom and step-father in [place], 2 cats. Unemployed since November 2016. Highest education level: bachelor's degree. Not in workforce. Not on disability. 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 Sex at : Male. Sexual orientation: Palacio. Gender identity: Male. Gender of partner(s): Male. Age of first sexual intercourse: 17. Sexually Active: No. Not sexually active. Deepika Chen " social history reviewed E&M reviewed today Deepika Chen " drug use, illicit Previously Deepika Chen " alcohol use Currently Deepika Chen " sexual orientation Aplacio Deepika Valentinoierrez " passive cigarette smoke exposure No Deepika Chen " smoking, advice to quit Yes Deepika Valentinoierrez " smoking status current every day smoker Deepika Chen " assessment of health literacy ([facility] 2014 Standards, 3C10) Adequate Deepika Chen Exercise [...] very busy though". Not homeless. Born in [facility]. City: [place]. [place]: [place]. Lives w/ mom and step-father in [place], cats. Unemployed since November 2016. Highest education level: bachelor's degree. Not in workforce. Not on disability. 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 Sex at : Male. [...] " assessment of health literacy ([facility] 2014 Standards, 3C10) Adequate Deepika Chen social [...] very busy though". Not homeless. Born in [facility]. City: [place]. [place]: [place]. Lives w/ mom and step-father in [place], cats. Unemployed since November 2016. Highest education level: bachelor's degree. Not in workforce. Not on disability. 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 Sex at : Male. [...] assessment Lives w/ mom and step-father in [place], 2 cats. Jasper Bobo " social history reviewed E&M reviewed today Sandra Monge " social history E&M Single. Spouse/Partner/Significant Other: n/a. Family is aware and supportive. Not homeless. Born in [facility]. City: [place]. State: [place]. Lives in [facility] in [facility]. Not employed. Highest education level: bachelor's [...] Monge " home/family situation, assessment Lives in [place] [facility] and stepdad in [facility] [facility]. Sandra Monge " family support Family is aware and supportive. Sandra Monge " smoking, advice to quit Yes Sandra Monge " assessment of health literacy ([facility] 2014 Standards, 3C10) Adequate Sandra [...] reality Garettmaritza Ledesma " hallucinations none [facility]itza [facility] " thought content (mental status exam) (E&M) [...] Covered republican ID *Jasper White 0-100% Other [id number] Sliding Fee - Cat 1 Docurated insurance [employer] [id number] *Jasper White 0-100% Other Sliding Fee - Cat 1 Docurated insurance company *Jasper White 0-100% Other [id number] *Jasper White 0-100% Other Sliding Fee - Cat 1 Docurated insurance [employer] [id number] *Jasper White 0-100% Other [id number] ADVANCE DIRECTIVES Name Date DISCUSSED - NO [...] - - Est Patient Exp Problem - 37915 Est Patient Detailed - 89427 Est Patient Detailed - 08578 Est Patient Exp Problem - 02411 Est Patient Exp Problem - 89806 Ofc Vst, Est Level III Est Patient Detailed - 17661 First Vx - Ix admin via ID IM or jet injects without counseling by physician Menactra Intramuscular Injectable Vision Vaccines Ordered - Print Consent/Declination Forms Ofc Vst, Est Level IV Xray - Chest - 2 Views - InHouse Handling of specimen for transfer Venipuncture Est Patient Detailed - 13076 Dispensing Visit (UNLIVSTED OPHTHALMOLOGICAL SERVICE/PROCEDURE) INFLUENZA VACCINE QUADRIVALENT 3 YRS PLUS IM Pneumovax Vaccine PPSV23 Admin of Vaccine - Injection - Each Add'l Admin of Vaccine - Injection - 1 Est Patient Detailed - 78513 Progressive lens, per lens Frames, purchases Est Patient Comprehensive Opth - 12242 New Patient Intermediate Opth - 32448 Est Patient Detailed - 16243 Est Patient Detailed - 97620 Est Patient Detailed - 92298 Est Patient Detailed - 57650 Est Patient Exp Problem - 44539 Est Patient Detailed - 64784 Diagnostic evaluation with medical - 30876 INFLUENZA VACCINE QUADRIVALENT 3 YRS PLUS IM Admin of Vaccine - Injection - 1 Est Patient Detailed - 42200 Est Patient Detailed - 90636 Prevnar (PCV13) IM TDAP Admin of Vaccine - Injection - Each Add'l Admin of Vaccine - Injection - 1 Est Patient Well Exam (40 - 64 Yrs) - 56026 Primary Care Service [facility] - Psychiatry Diagnostic evaluation (no medical) - 58937 [facility] Assessment - [employer] Fixed Income Primary Care Service Linkage Xray - Chest - PA & Lat - InHouse Primary Care Service Linkage Handling of specimen for transfer Venipuncture Integrated Behavioral Health Assessment (IBH) New Patient Well Exam (40 - 64 Yrs) - 83670 Handling of specimen for transfer Venipuncture HISTORY [...] 60.00) completed Est Patient Comprehensive Opt - 65736 Edgard Martin completed New Patient Intermediate Opth - 03851 Chriss Martin completed Diagnostic evaluation with medical - 94565 Buck Ledesma completed Primary Care Service [facility] Maximus Yancey Time spent with patient: 30 completed Diagnostic evaluation (no medical) - 74597 Jasper Bobo completed [facility] Assessment - [employer] Income Jasper Bobo completed Primary Care Service Link[facility] Maximus Yancey Time spent with patient: 30 completed Primary Care Service Linkage Maximus Yancey Time spent with patient: 30 completed Venipuncture Sandra Moneg completed Venipuncture Sandra Monge completed [facility] No Information Available [facility] No Information Available
--- OUTSIDE RECORDS SUMMARY | 2020-02-03 02:30 | XMS REPORT ---
Author Author Admin, [employer] Organization Unknown Address Unknown Phone Unavailable PROBLEMS [...] Jasper Bobo Screening for hypercholesterolemia completed - Nelairina Canasnth ENCOUNTERS Date Type Provider Location Encounter Diagnosis - Ambulatory Encounter Martha Stallworth [facility] Public Health Services UNK - Ambulatory Encounter Nela Santiikanth Nela Hancockikanth [facility] [place] [place] Adult Medicine UNK - Ambulatory Encounter Nela Santiikanth Nela Santiikanth Nancy [facility] UNK - Ambulatory Encounter Marcelino Bruceo Rosy Ghosh [facility] [place] [place] Behavioral Health UNK - Ambulatory Encounter Nela Santiikanth Nela Missaelnth Estrellita Lanza [facility], [facility] [place] [place] Adult Medicine UNK - Ambulatory Encounter Nela Santiikanth Nela Santiikanth [facility] [place] [place] Adult Medicine UNK - Ambulatory Encounter Nela Santiikanth Nela Santiikabethanyh Dorothy Pineda [facility] [place] [place] Adult Medicine UNK - Ambulatory Encounter Nela Santiikanth Nela Santiikanth Dorothy Lanza MedAdherence, [facility] [place] [place] Adult Medicine UNK - Ambulatory Encounter Marcelino Breanneoz Callizo [facility] [place] [place] Behavioral Health UNK - Ambulatory Encounter Marcelino Leoz Callizo Natalyada Danielle [facility] [place] [place] Behavioral Health UNK - Ambulatory Encounter Nela Santiikanth Nela Santiikanth [employer] [facility] [place] [place] Adult Medicine UNK - Ambulatory Encounter Nela Shrikanth Nela Shrikanth [facility] [place] [place] Adult Medicine UNK - Ambulatory Encounter Nela Shrikanth Nela Santiikanth Dylon Walker [facility] [place] [place] Adult Medicine Abscess, axilla, right - Ambulatory Encounter [facility] - [facility] - Ambulatory Encounter Isi Bliss [facility] UNK - Ambulatory Encounter Buck Arringtons Isi Isbell [facility] Contact Center UNK - Ambulatory Encounter Nela Canasntkirill [facility] Adult Medicine UNK - Ambulatory Encounter Nela Blackh LinkLogic [...] Ambulatory Encounter Dorothy Edwin Nela Canasbethanykirill Canasbethanyh Sirnath Alberts [facility] Contact Center UNK - Ambulatory Encounter Nela Canasbethanykirill Canasbethanyh LinkLogic [facility] [place] [place] Adult Medicine UNK - Ambulatory Encounter Martha Stallworth [facility] Public Health Services UNK - Ambulatory Encounter Nela Canasbethanykirill Rondon Santikendrabethanyh [facility] [place] [place] Adult Medicine UNK - Ambulatory Encounter Nela Canasbethanykirill Rondon Alexandre Stallworth [facility] [place] [place] Adult Medicine HIV infectionHepatitis A immunityHepatitis B immunity - Ambulatory Encounter Cliff Napier [facility] Contact Center UNK - Ambulatory Encounter Mare Carbajal LM Adult Medicine UNK - Ambulatory Encounter Rinal Recinos Cliff Napier LM Adult Medicine UNK - Ambulatory Encounter Cliff Recinos [facility] Adult Medicine UNK - Ambulatory Encounter Rinal Recinos [facility] LM Adult Medicine UNK - Ambulatory Encounter Rinal Recinos [facility] LM Adult Medicine UNK - Ambulatory Encounter Jazlyn Nash [facility] [place] [place] Adult Medicine UNK - Ambulatory Encounter Rinal Recinos [facility] LM Adult Medicine UNK - Ambulatory Encounter Rinal Recinos [facility] LM Adult Medicine UNK - Ambulatory Encounter Rinshara Recinos [facility] Adult Medicine UNK - Ambulatory Encounter Sandra Monge [facility] [place] [place] Adult Medicine UNK - Ambulatory Encounter Sandra Monge [facility] [place] [place] Adult Medicine Osteopenia - Ambulatory Encounter Cliff Jackson [facility] [place] [place] Adult Medicine UNK - Ambulatory Encounter Rinshara Recinos [facility] [place] [place] Adult Medicine UNK - Ambulatory Encounter Destinishara Anncaryl Jackson [facility] [place] [place] Adult Medicine UNK - Ambulatory Encounter Cliff Jackson [facility] [place] [place] Adult Medicine UNK - Ambulatory Encounter Cliff Jackson LinkLogic [facility] [place] [place] Adult Medicine UNK - Ambulatory Encounter Sandra Monge [employer]Logic Destinishara Recinos [facility] [place] [place] Adult Medicine UNK - Ambulatory Encounter Sandra Monge [employer]Logic Meghna Arnold [facility] [place] [place] Adult Medicine UNK - Ambulatory Encounter Fax Status [facility] UN[facility] - Ambulatory Encounter Fax Status [facility] Health Services UNK - Ambulatory Encounter Fax Status [facility] Health Services UNK - Ambulatory Encounter Fax Status [facility] UNK - Ambulatory Encounter Mare Jamison Rinal Recinos Ragini Murillo [facility] [place] [place] Adult Medicine UNK - Ambulatory Encounter Rinal Jorje GodlsteinLogkendrick NolenMare Raven [facility] [place] [place] Adult Medicine UNK - Ambulatory Encounter Jeromy GoldsteinLogic [facility] [place] [place] Adult Medicine UNK - Ambulatory Encounter Meghna Nash [facility] [place] [place] Adult Medicine UNK - Ambulatory Encounter F[facility] - Ambulatory Encounter F[facility] - Ambulatory Encounter Sandra Monge [facility] [place] [place] Adult Medicine UNK - Ambulatory Encounter Sandra Rubirachell Nash [facility] [place] [place] Adult Medicine UNK - Ambulatory Encounter Lashaun Monge [facility] UNK - Ambulatory Encounter Sandra Monge [employer] [facility] [place] [place] Adult Medicine UNK - Ambulatory Encounter Jeromy Recinos [facility] [place] [place] Adult Medicine UNK - Ambulatory Encounter Jeromy Jackson [facility] [place] [place] Adult Medicine UNK - Ambulatory Encounter Cliff Jackson [facility] [place] [place] Adult Medicine UNK - Ambulatory Encounter Meghna Nash [facility] [place] [place] Adult Medicine UNK - Ambulatory Encounter Cliff Jackson [facility] [place] [place] Adult Medicine UNK - Ambulatory Encounter Fax Status [facility] - Ambulatory Encounter Fax Status [facility] Services UNK - Ambulatory Encounter Sandra Monge LinkLogic [facility] [place] [place] Adult Medicine UNK - Ambulatory Encounter Sandra Monge [facility] [place] [place] Adult Medicine UNK - Ambulatory Encounter Sandra Mariposamelly Coffman Charity Frederick Kb [facility] [place] [place] Adult Medicine Increased transaminase level - Ambulatory Encounter Sandra GoldsteinLogkendrick [facility] [place] [place] Adult Medicine UNK - Ambulatory Encounter Sandra Mcgowan [facility] [place] [place] Adult Medicine UNK - Ambulatory Encounter Sandra GoldsteinLogkendrick [facility] [place] [place] Adult Medicine UNK - Ambulatory Encounter Sandra Monge [facility] [place] [place] Adult Medicine UNK - Ambulatory Encounter Sandra Martinez [facility] [place] [place] Adult Medicine Hx Bronchitis acute with bronchospasmHyponatremiaHyperkalemiaHypercalcemia - Ambulatory Encounter Sandra Lanza MedAdherence, [facility] [place] [place] Adult Medicine UNK - Ambulatory Encounter Sandra Lanza MedAdherence, [facility] [place] [place] Adult Medicine UNK - Ambulatory Encounter Cliff Jackson [facility] [place] [place] Adult Medicine UNK - Ambulatory Encounter Sandra Monge [facility] [place] [place] Adult Medicine UNK - Ambulatory Encounter Sandra Jackson [facility] [place] [place] Adult Medicine UNK - Ambulatory Encounter Sandra Lanza Med[facility]herence, [facility] [place] [place] Adult Medicine UNK - Ambulatory Encounter Sandra Lanza MedAdherence, [facility] [place] [place] Adult Medicine UNK - Ambulatory Encounter Boni Cristina [facility] Public Health Services UNK - Ambulatory Encounter Jazmin Bullard [facility] [place] [place] Vision UNK - Ambulatory Encounter Jazmin Bullard [facility] [place] [place] Vision UNK - Ambulatory Encounter Sandra Monge LinkLogic [facility] [place] [place] Adult Medicine UNK - Ambulatory Encounter Sandra Monge LinkLogic [facility] [place] [place] Adult Medicine UNK - Ambulatory Encounter Sandra Monge [facility] [place] [place] Adult Medicine UNK - Ambulatory Encounter Sandra Martinez [facility] [place] [place] Adult Medicine Onychomycosis, toenailsImmunization update - Ambulatory Encounter Jazmin Bullard [facility] [place] [place] Vision UNK - Ambulatory Encounter Edgard Song Mario Edgard Martin [facility] [place] [place] Vision UNK - Ambulatory Encounter Edgard Song Mario Rene Nohemi Mario [facility] [place] [place] Vision UNK - Ambulatory Encounter Edgard Sogn Mario Rene Nohemi Mario Hoffmann [facility] [place] [place] Vision SPECIAL SCREENING EXAMINATION OTH SPEC VIRAL DZ - Ambulatory Encounter Chrissjesus Martin [facility] Vision UNK - Ambulatory Encounter Chrissjesus Martin LM Vision UNK - Ambulatory Encounter Chriss Martin [facility] [place] [place] Vision UNK - Ambulatory Encounter Chrissjesus Martin Jazmin Bullard [facility] [place] [place] Vision Myopia - OURegular astigmatism, bilateralPresbyopia - OU - Ambulatory Encounter Sandra GoldsteinLogic [facility] [place] [place] Adult Medicine UNK - Ambulatory Encounter Sandra Vargas [facility] [place] [place] Adult Medicine UNK - Ambulatory Encounter Sandra Vargas [facility] [place] [place] Adult Medicine UNK - Ambulatory Encounter Sandra Yancey MedAdherence [facility] [place] [place] Adult Medicine UNK - Ambulatory Encounter Sandra Lanza MedAdherence, [facility] [place] [place] Adult Medicine UNK - Ambulatory Encounter Sandra Lanza MedAdherence, [facility] [place] [place] Adult Medicine UNK - Ambulatory Encounter Sandra Lanza MedAdherence, [facility] [place] [place] Adult Medicine UNK - Ambulatory Encounter Sandra Lanza MedAdherence, [facility] [place] [place] Adult Medicine UNK - Ambulatory Encounter Sandra Lanza MedAdherence, [facility] [place] [place] Adult Medicine UNK - Ambulatory Encounter Sandra Lanza MedAdherence, [facility] [place] [place] Adult Medicine UNK - Ambulatory Encounter Khloe Mckeon [facility] UNK - Ambulatory Encounter Khloe Lee [facility] UNK - Ambulatory Encounter Amaury Nath [facility] [place] [place] Adult Medicine UNK - Ambulatory Encounter Amaury Nath [facility] [place] [place] Adult Medicine UNK - Ambulatory Encounter Sandra Monge [facility] [place] [place] Adult Medicine UNK - Ambulatory Encounter Sandra Monge [facility] [place] [place] Adult Medicine UNK - Ambulatory Encounter Sandra Hill [facility] [place] [place] Adult Medicine Hx Latent tuberculosis, s/p INH/B6Hx Bronchitis acute with bronchospasm - Ambulatory Encounter Buck Ledesma [facility] [place] [place] Behavior[facility] Health UNK - Ambulatory Encounter Buck Kowalski [facility] [place] [place] [facility] UNK - Ambulatory Encounter Sandra Vargas [facility] [place] [place] Adult Medicine UNK - Ambulatory Encounter Sandra Vargas [facility] [place] [place] Adult Medicine UNK - Ambulatory Encounter Sandra Bush [facility] UNK - Ambulatory Encounter Buck Ledesma [facility] [place] [place] [facility] Health UNK - Ambulatory Encounter Buck Ledesma LinkLogic [facility] [place] [place] [facility] UNK - Ambulatory Encounter Buck Solares [facility] Contact Center UNK - Ambulatory Encounter Sandra Camarena [facility] Services UNK - Ambulatory Encounter Sandra Childsuyen [facility] [place] [place] Adult Medicine UNK - Ambulatory Encounter Sandra Monge [facility] [place] [place] Adult Medicine UNK - Ambulatory Encounter Sandra Monge [facility] [place] [place] Adult Medicine UNK - Ambulatory Encounter Sandra Kessler [facility] [place] [place] Adult Medicine UNK - Ambulatory Encounter Sandra Monge LM Adult Medicine UNK - Ambulatory Encounter Sandra Kowalski [facility] [place] [place] Adult Medicine UNK - Ambulatory Encounter Nancy [facility] Services UNK - Ambulatory Encounter Khloe Lee [facility] UNK - Ambulatory Encounter Nancy GoldsteinLogic [facility] [place] [place] Adult Medicine UNK - Ambulatory Encounter Buck Burris [facility] [place] [place] [facility] UNK - Ambulatory Encounter Sandra Monge [facility] [place] [place] Adult Medicine UNK - Ambulatory Encounter Sandra Hill [facility] [place] [place] Adult Medicine Hx Latent tuberculosis, s/p [id number] - Ambulatory Encounter Sandra Monge LinkLogic [facility] [place] [place] Adult Medicine UNK - Ambulatory Encounter Sandra Boss [facility] [place] [place] Adult Medicine UNK - Ambulatory Encounter Buck Clarke [facility] UNK - Ambulatory Encounter Buck Ledesma [facility] [place] [place] [facility] UNK - Ambulatory Encounter Buck GoldsteinLogic [facility] [place] [place] [facility] UNK - Ambulatory Encounter Sandra Monge LinkLogic [facility] [place] [place] Adult Medicine UNK - [facility] - Ambulatory Encounter Buck Burris [facility] [place] [place] [facility] UNK - Ambulatory Encounter Lashaun Mckeon [facility] UNK - Ambulatory Encounter Sig[facility] UNK - Ambulatory Encounter Buck Ledesma [facility] [place] [place] [facility] UNK - Ambulatory Encounter Buck Bliss [facility] [place] [place] [facility] UNK - Ambulatory Encounter Sandra Monge [employer]Logic [facility] [place] [place] Adult Medicine UNK - Ambulatory Encounter Sandra Monge [facility] [place] [place] Adult Medicine UNK - Ambulatory Encounter Sandra Chen [facility] [place] [place] Adult Medicine Flu shot - Ambulatory Encounter Sandra GoldsteinLogkendrick [facility] [place] [place] Adult Medicine UNK - Ambulatory Encounter Sandra Chen [facility] [place] [place] Adult Medicine UNK - Ambulatory Encounter Sandra Monge [facility] [place] [place] Adult Medicine UNK - Ambulatory Encounter Sandra Chen [facility] [place] [place] Adult Medicine BMI < 20 - Ambulatory Encounter Sandra Monge LinkLogic [facility] [place] [place] Adult Medicine UNK - Ambulatory Encounter [facility] UN[facility] - Ambulatory Encounter Sandra Monge [facility] [place] [place] Adult Medicine UNK - Ambulatory Encounter Sandra Chen [facility] [place] [place] Adult Medicine Immunization updateVitamin D deficiency - Ambulatory Encounter [facility] UNK - Ambulatory Encounter Jason Gilliam [facility] UNK - Ambulatory Encounter Sandra Hill [facility] [place] [place] Adult Medicine UNK - Ambulatory Encounter [facility] [place] [place] Care Coordination Desktop Dex Hill [facility] UNK - Ambulatory Encounter Sandra Monge [facility] [place] [place] Adult Medicine COPDHx Latent tuberculosis, s/p INH/B6 - Ambulatory Encounter Sandra Kowalski [facility] [place] [place] Adult Medicine UNK - Ambulatory Encounter Maximus Yancey [facility] [place] [place] Manager Combination UNK - Ambulatory Encounter Maximus Yancey [facility] [place] [place] Manager Combination UNK - Ambulatory Encounter Jason Gilliam Idaliakirill Nath [facility] UNK - Ambulatory Encounter Sandra Kowalski [facility] [place] [place] Adult Medicine UNK - Ambulatory Encounter Maximus Yancey [facility] [place] [place] Manager Combination UNK - Ambulatory Encounter Sandra Mcgowan [facility] [place] [place] Adult Medicine UNK - Ambulatory Encounter Maximus Yancey [facility] [place] [place] Manager Combination UNK - Ambulatory Encounter Sandra Monge [facility] [place] [place] Adult Medicine UNK - Ambulatory Encounter Jasper Keller [facility] [place] [place] [facility] DEPRESSIVE DISORDER, OTHER SPECIFIEDALCOHOL USE DISORDER, MODERATETOBACCO USE DISORDER, MODERATE - Ambulatory Encounter Sandra Jamison [facility] [place] [place] Adult Medicine - Ambulatory Encounter Sandra Kowalski [facility] [place] [place] Adult Medicine UNK - Ambulatory Encounter Sandra Day [facility] [place] [place] Adult Medicine Screening for hypercholesterolemia - Ambulatory Encounter Adrian Cristina [facility] Public Health Services UNK - Ambulatory Encounter Sandra GoldsteinWilson County Hospitalkendrick [facility] [place] [place] Vision UNK VITAL SIGNS Date Observation Value Provider method used to obtain blood pressure automatic Rosy Ghosh " Blood Pressure Position 01 sitting Rosy Ghosh " blood pressure, site #1 right arm Rosy Ghosh " blood pressure, diastolic 86 mm[Hg] Rosy Ghosh " blood pressure, systolic 128 mm[Hg] Rosy Ghosh " pulse rate E&M 85 /min Rosy Ghosh " weight E&M 137.38 lbs. Rosy Ghosh " weight in kilograms E&M 62.45 kg Rosy Ghosh " height E&M 72 [in_i] Rosy Ghosh " height in centimeters E&M 182.88 cm Rosy Ghosh oxygen saturation, oximetry 98 % Dorothy Pineda " pulse rate E&M 72 /min Dorothychanda Pineda " blood pressure, diastolic 89 mm[Hg] Dorothy Pineda " blood pressure, systolic 134 mm[Hg] Dorothy Pineda " temperature E&M 98.7 [degF] Dorothy Pineda " weight E&M 138.13 lbs. Dorothy Pineda " weight in kilograms E&M 62.79 kg Dorothy Pineda " method used to obtain blood pressure automatic Dorothy Pineda " Blood Pressure Position 01 sitting Dorothy Pineda " blood pressure, site #1 left arm Dorothy Pineda " temperature site oral Dorothy Pineda " height E&M 72 [in_i] Dorothy Pineda " height in centimeters E&M 182.88 cm Dorothy Edwin method used to obtain blood pressure automatic Thida Santos " Blood Pressure Position 01 sitting Thida Santos " blood pressure, site #1 left arm Thida Santos " blood pressure, diastolic 84 mm[Hg] Thida Santos " blood pressure, systolic 133 mm[Hg] Thida Santos " pulse rate E&M 121 /min Thida Santos " weight E&M 140.80 lbs. Thida Santos " weight in kilograms E&M 64 kg Thida Santos " height E&M 72 [in_i] Thida Santos " height in centimeters E&M 182.88 cm Thida Santos blood pressure, site #1 right arm Dylon Walker " Blood Pressure Position 01 sitting Dylon E Aaron " method used to obtain blood pressure automatic Dylon E Aaron " temperature site oral Dylon Walker " weight E&M 141 lbs. Dylon Walker " weight in kilograms E&M 64.09 kg Dylon Walker " height E&M 72 [in_i] Dylon Walker " height in centimeters E&M 182.88 cm Dylon Walker blood pressure, diastolic 96 mm[Hg] Dorothybarby Pineda " blood pressure, systolic 125 mm[Hg] Dorothy Pindea " oxygen saturation, oximetry 98 % Dorothybarby Pineda " pulse rate E&M 82 /min Dorothy Pineda " temperature E&M 98.5 [degF] Dorothy Pineda " weight E&M 139 lbs. Dorothy Pineda " weight in kilograms E&M 63.18 kg Dorothy Pineda " method used to obtain blood pressure automatic Dorothy Pineda " Blood Pressure Position 01 sitting Dorothy Pineda " blood pressure, site #1 left arm Dorothy Pineda " temperature site oral Dorothy Pineda " height E&M 72 [in_i] Dorothy Pineda " height in centimeters E&M 182.88 cm Dorothy Pineda oxygen saturation, oximetry 98 % Bethanyjaswant Manuel " blood pressure, diastolic 70 mm[Hg] Bethanyjaswant Jackson " blood pressure, systolic 108 mm[Hg] Bethanyjaswant Jackson " pulse rate E&M 86 /min Trenasofia Jackson " temperature E&M 98.9 [degF] Cliff Jackson " weight E&M 140.40 lbs. Cliff Jackson " weight in kilograms E&M 63.82 kg Cliff Jackson " blood pressure, site #1 right arm Cliff Jackson " Blood Pressure Position 01 sitting Cliff Jackson " method used to obtain blood pressure automatic Trenatolouiserachell Jackson " temperature site oral Cliff Jackson " height E&M 72 [in_i] Cliff Jackson " height in centimeters E&M 182.88 cm Bethanyjaswant Jackson temperature site oral Kari Crawford " oxygen saturation, oximetry 98 % Kari Crawford " pulse rate E&M 88 /min Kari Crawford " temperature E&M 98.3 [degF] Kari Crawford " blood pressure, diastolic 82 mm[Hg] Kari Crawford " blood pressure, systolic 117 mm[Hg] Kari Mcdermottvez " weight E&M 145.13 lbs. Kari Crawford " weight in kilograms E&M 65.97 kg Kari Crawford " height E&M 72 [in_i] Kari Crawford " height in centimeters E&M 182.88 cm Kari Crawford " method used to obtain blood pressure automatic Kari Crawford " Blood Pressure Position 01 sitting Kari Ty " blood pressure, site #1 left arm Kari Ty blood pressure, diastolic 84 mm[Hg] Cliff Jackson " blood pressure, systolic 122 mm[Hg] Cliff Jackson " pulse rate E&M 90 /min Cliff Jackson " oxygen saturation, oximetry 97 % Cliff Jackson " temperature E&M 99.1 [degF] Cliff Jackson " weight E&M 146 lbs. Cliff Jackson " weight in kilograms E&M 66.36 kg Cliff Jackson " blood pressure, site #1 right arm Cliff Jackson " Blood Pressure Position 01 sitting Cliff Jackson " method used to obtain blood pressure automatic Trenatolouiserachell Jackson " temperature site oral Cliff Jackson " height E&M 72 [in_i] Cliff Jackson " height in centimeters E&M 182.88 cm Bethanyjaswant Jackson blood pressure, diastolic 79 mm[Hg] Angi [place] " blood pressure, systolic 114 mm[Hg] Angi [place] " oxygen saturation, oximetry 98 % Angi [place] " pulse rate E&M 88 /min Angi [place] " temperature E&M 98.9 [degF] Angi [place] " weight E&M 145.13 lbs. Angi Juan " weight in kilograms E&M 65.97 kg Agni [place] " method used to obtain blood pressure automatic Angi Juan " Blood Pressure Position 01 sitting Angi [place] " blood pressure, site #1 left arm Angi Juan " temperature site oral Angi Juan " height E&M 72 [in_i] Agni Juan " height in centimeters E&M 182.88 cm Angi Juan oxygen saturation, oximetry 95 % Angi Juan " blood pressure, diastolic 88 mm[Hg] Angi Juan " blood pressure, systolic 129 mm[Hg] Angi [place] " pulse rate E&M 96 /min Angi [place] " temperature E&M 98.4 [degF] Angi [place] " weight E&M 142 lbs. Angi [place] " weight in kilograms E&M 64.55 kg Angi [place] " method used to obtain blood pressure automatic Angi Juan " Blood Pressure Position 01 sitting Angi Juan " blood pressure, site #1 left arm Angi [place] " temperature site oral Angi [place] " height E&M 72 [in_i] Angi [place] " height in centimeters E&M 182.88 cm Angi Juan blood pressure, diastolic 62 mm[Hg] Michelle Hill " blood pressure, systolic 99 mm[Hg] Michelle Hill " oxygen saturation, oximetry 96 % Michelle Hill " pulse rate E&M 105 /min Michelle Hill " temperature E&M 97.4 [degF] Michelle Hill " weight E&M 129 lbs. Michelle Hill " weight in kilograms E&M 58.64 kg Michelle Hill " method used to obtain blood pressure automatic Michelle Hill " Blood Pressure Position 01 sitting Michelleadam Hill " blood pressure, site #1 right arm Michelleadam Hill " temperature site oral Michelleadam Hill " height E&M 72 [in_i] Michelleadam Hill " height in centimeters E&M 182.88 cm Michelle Sergio oxygen saturation, oximetry 99 % Elizabeth Kessler " blood pressure, diastolic 64 mm[Hg] Elizabeth Kessler " blood pressure, systolic 98 mm[Hg] Elizabeth Checo " pulse rate E&M 83 /min Elizabeth Kessler " temperature E&M 98.5 [degF] Elizabeth Wolffley " weight E&M 130.40 lbs. Elizabeth Kessler " weight in kilograms E&M 59.27 kg Elizabeth Kessler " method used to obtain blood pressure automatic Elizabeth Checo " Blood Pressure Position 01 sitting Elizabeth Checo " blood pressure, site #1 right arm Elizabeth Checo " temperature site tympanic Elizabeth Checo " height E&M 72 [in_i] Elizabeth Checo " height in centimeters E&M 182.88 cm Elizabeth Wolffley method used to obtain blood pressure automatic Angi Burris " Blood Pressure Position 01 sitting Angi Burris " blood pressure, site #1 left arm Angi Burris " blood pressure, diastolic 80 mm[Hg] Angi Burris " blood pressure, systolic 113 mm[Hg] Angi Burris " pulse rate E&M 80 /min Nagi Burris " weight E&M 128.80 lbs. Angi Burris " weight in kilograms E&M 58.55 kg Anginava Burris " height E&M 72 [in_i] Anginava Burris " height in centimeters E&M 182.88 cm Angi Burris blood pressure, diastolic 106 mm[Hg] Michelle Sergio " blood pressure, systolic 151 mm[Hg] Michelle Hill " pulse rate E&M 98 /min Michelle Sergio " oxygen saturation, oximetry 99 % Michelle Sergio " temperature E&M 97.8 [degF] Michelleadam Hill " weight E&M 127 lbs. Michelle Hill " weight in kilograms E&M 57.73 kg Michelleadam Hill " method used to obtain blood pressure automatic Michelle Sergio " Blood Pressure Position 01 sitting Michelle Sergio " blood pressure, site #1 right arm Michelle Sergio " temperature site tympanic Michelle Hill " height E&M 72 [in_i] Michelle Sergio " height in centimeters E&M 182.88 cm Michelle Hill method used to obtain blood pressure automatic Emil Caro " Blood Pressure Position 01 sitting Emil Caro " blood pressure, site #1 right arm Emil Caro " blood pressure, diastolic 71 mm[Hg] Emil Caro " blood pressure, systolic 104 mm[Hg] Emil Caro " pulse rate E&M 89 /min Emil Caro " weight E&M 131.25 lbs. Buck Ledesma " weight in kilograms E&M 59.66 kg Buck Ledesma " height E&M 72 [in_i] Emil Caro " height in centimeters E&M 182.88 cm Emil Caro method used to obtain blood pressure automatic Angi Burris " Blood Pressure Position 01 sitting Angi Burris " blood pressure, site #1 left arm Angi Burris " blood pressure, diastolic 74 mm[Hg] Angi Burris " blood pressure, systolic 105 mm[Hg] Angi Burris " pulse rate E&M 97 /min Angi Burris " weight E&M 130 lbs. Angi Burris " weight in kilograms E&M 59.09 kg Angi Burris " height E&M 72 [in_i] Angi Burris " height in centimeters E&M 182.88 cm Angi Burris method used to obtain blood pressure automatic Isi Bliss " Blood Pressure Position 01 sitting Isi Bliss " blood pressure, site #1 right arm Isi Bliss " blood pressure, diastolic 75 mm[Hg] Isi Bliss " blood pressure, systolic 110 mm[Hg] Isi Bliss " pulse rate E&M 120 /min Isi Bliss " weight E&M 136 lbs. Isi lBiss " weight in kilograms E&M 61.82 kg Isi Bliss " height E&M 72 [in_i] Isi Bliss " height in centimeters E&M 182.88 cm Isichanda Bliss blood pressure, diastolic 74 mm[Hg] Deepika Chen " blood pressure, systolic 109 mm[Hg] Deepika Chen " pulse rate E&M 80 /min Deepika Chen " oxygen saturation, oximetry 99 % Deepika Chen " temperature E&M 97.0 [degF] Deepika Chen " weight E&M 136.80 lbs. Deepika Chen " weight in kilograms E&M 62.18 kg Deepika Chen " method used to obtain blood pressure automatic Deepika Chen " Blood Pressure Position 01 sitting Deepika Chen " blood pressure, site #1 left arm Deepika Chen " temperature site tympanic Deepika Chen " height E&M 72 [in_i] Deepika Chen " height in centimeters E&M 182.88 cm Deepika Chen blood pressure, diastolic 78 mm[Hg] Deepika Chen " blood pressure, systolic 113 mm[Hg] Deepika Chen " pulse rate E&M 81 /min Deepika Chen " oxygen saturation, oximetry 98 % Deepika Chen " temperature E&M 97.6 [degF] Deepika Chen " weight E&M 141.60 lbs. Deepika Chen " weight in kilograms E&M 64.36 kg Deepika Chen " method used to obtain blood pressure automatic Deepika Chen " Blood Pressure Position 01 sitting Deepika Chen " blood pressure, site #1 left arm Deepika Chen " temperature site tympanic Deeipka Chen " height E&M 72 [in_i] Deepika Chen " height in centimeters E&M 182.88 cm Deepika Chen blood pressure, diastolic 73 mm[Hg] Deepika Chen " blood pressure, systolic 113 mm[Hg] Deepika Chen " respiratory rate E&M 14 /min Deepika Chen " pulse rate E&M 86 /min Deepika Chen " method used to obtain blood pressure automatic Deepika Chen " Blood Pressure Position 01 sitting Deepika Chen " blood pressure, site #1 right arm Deepika Chen " temperature site tympanic Deepika Chen " oxygen saturation, oximetry 97 % Deepika Chen " temperature E&M 96.2 [degF] Deepika Chen " weight E&M 140.20 lbs. Deepika Chen " weight in kilograms E&M 63.73 kg Deepika Chen " height E&M 72 [in_i] Deepika Chen " height in centimeters E&M 182.88 cm Deepika Chen blood pressure, diastolic 109 mm[Hg] Michelle Hill " blood pressure, systolic 156 mm[Hg] Michelle Hill " oxygen saturation, oximetry 98 % Michelle Hill " pulse rate E&M 86 /min Michelle Hill " temperature E&M 97.4 [degF] Michelle Hill " height E&M 72 [in_i] Michelle Hill " height in centimeters E&M 182.88 cm Michelle Hill " weight E&M 141 lbs. Michelle Hill " weight in kilograms E&M 64.09 kg Michelle Hill " method used to obtain blood pressure automatic Michelle Hill " Blood Pressure Position 01 sitting Michelle Hill " blood pressure, site #1 right arm Michelle Hill " temperature site tympanic Michelle Hill Allergies No Known Allergy Information REASON FOR [...] creatinine, urine, 24 hour 2076 mg/24h [facility] [id number] High " creatinine, random, urine 38.1 mg/dL [...] creatinine, urine, 24 hour 1562 mg/24h [facility] [id number] " creatinine, random, urine 25.4 mg/dL [facility] [...] >3.0 " B-12, serum 471 pg/mL [facility] [id number]/04/21 human leukocyte antigen B57 negative Sandra Mariposa [...] Date Vaccine Dose Lot Number Status menactra im [facility] [address]-40 sanofi pasteur 0.5 mL [id number] completed HISTORY OF MEDICATION USE Medication Instructions Dates Provider Comments DRYSOL 20 % EXTERNAL SOLUTION Apply once daily Nela Shrikanth HYPERCARE 15 % EXTERNAL SOLUTION Apply once daily as needed Nela Schroeder PROZAC 20 MG ORAL CAPSULE Take one capsule daily. Marcelino Farahizo PIFELTRO 100 MG ORAL TABLET Take 1 [...] by mouth daily with food - Nela Hancockikabethanyh PROZAC 40 MG ORAL CAPSULE 1 By [...] Date Observation Value Provider time of call 11/15/2019 1:21 PM Martha Stallworth drug use, illicit Previously Marcelino Brucegurwinder " alcohol use Currently Marcelino Farahjudah " smoking status current every day smoker Marcelinochayito Farahjudah " social history E&M Single. Single. Parents when pt was age 16, mother and father both remarried. Relationship with father "I love him but don't like him... we talk on phone 1x a week". Relationship with mother and step-father "perfect and very good". One younger brother, "get along well, he is very busy though". Not homeless. Born in [facility]. City: [place]. State: [place]. Lives w/ mom and step-father in [place], cats. Unemployed since November 2016. Highest education level: bachelor's degree. Not in workforce. Not on disability. 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 Bachelor's degree in [place] Literature at [employer]. Sex at : Male. Sexual orientation: Palacio. Gender identity: Male. Gender of partner(s): Male. Age of first sexual intercourse: 17. Sexually Active: No. Not sexually active. Marcelino Farahjudah " social history reviewed E&M reviewed today Marcelino Farahjudah drug use, illicit Previously Dorothy Pineda " [...] very busy though". Not homeless. Born in [facility]. City: [place]. State: [place]. Lives w/ mom and step-father in [place], 2 cats. Unemployed since November 2016. Highest education level: bachelor's degree. Not in workforce. Not on disability. 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 Bachelor's degree in [place] Literature at [employer]. Sex at : Male. Sexual orientation: Palacio. Gender identity: Male. Gender of partner(s): Male. Age of first sexual intercourse: 17. Sexually Active: No. Not sexually active. Dorothychanda Pineda " social history reviewed E&M reviewed today Dorothy Pineda " assessment of health literacy ([facility] 2014 Standards, 3C10) Adequate Dorothy Edwin " passive cigarette smoke exposure No Dorothychanda Pineda " smoking status current every day smoker Dorothy Pineda drug use, illicit Previously Marcelino Leoz Callizo " alcohol use Currently Marcelino Leoz [...] very busy though". Not homeless. Born in [facility]. City: [place]. State: [place]. Lives w/ mom and step-father in [place], [facility]. Unemployed since November 2016. Highest education level: bachelor's degree. Not in workforce. Not on disability. 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 Bachelor's degree in [place] Literature at [employer]. Sex at : Male. Sexual orientation: Palacio. Gender identity: Male. Gender of partner(s): Male. Age of first sexual intercourse: 17. Sexually Active: No. Not sexually active. Marcelino Leoz Callizo " social history reviewed E&M reviewed today Marcelino Leoz Callizo " sexual orientation Palacio Dylon E Aaron " is there any chance that you could be ? No Dylon E Aaron " assessment of health literacy ([facility] 2014 Standards, 3C10) Adequate Dylon E Aaron [...] very busy though". Not homeless. Born in [facility]. City: [place]. State: [place]. Lives w/ mom and step-father in [place], 2 cats. Unemployed since November 2016. Highest education level: bachelor's degree. Not in workforce. Not on disability. 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 Bachelor's degree in [place] Literature at [employer]. Sex at : Male. Sexual orientation: Palacio. [...] though". Not homeless. Born in [place]. City: [place]. State: [place]. Lives w/ mom and step-father in [place], 2 cats. Unemployed since November 2016. Highest education level: bachelor's degree. Not in workforce. Not on disability. 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 Bachelor's degree in [place] Literature at [employer]. Sex at : Male. Sexual orientation: Palacio. Gender identity: Male. Gender of partner(s): Male. Age of first sexual intercourse: 17. Sexually Active: No. Not sexually active. Dorothy Pineda " social history reviewed E&M reviewed today Dorothychanda Pineda " assessment of health literacy ([facility] 2014 Standards, 3C10) Adequate Dorothy Pineda " passive cigarette smoke exposure No Dorothy Pineda " smoking status current every day smoker Dorothybarby Pineda drug use, illicit Previously Cliff Jackson [...] very busy though". Not homeless. Born in [facility]. City: [place]. State: [place]. Lives w/ mom and step-father in [place], 2 cats. Unemployed since November 2016. Highest education level: bachelor's degree. Not in workforce. Not on disability. 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 Bachelor's degree in [place] Literature at [employer]. Sex at : Male. Sexual orientation: Palacio. Gender identity: Male. Gender of partner(s): Male. Age of first sexual intercourse: 17. Sexually Active: No. Not sexually active. Cliff Jackson " social history reviewed E&M reviewed today Cliff Jackson " is there any chance that you could be ? No Cliff Jackson " assessment of health literacy ([facility] 2014 Standards, 3C10) Adequate Cliff Jackson " [...] T Kari Crawford " Nutrition intervention Mendez Carwford time of call 05/21/2019 4:17 PM Leonor [...] very busy though". Not homeless. Born in [facility]. City: [place]. State: [place]. Lives w/ mom and step-father in [place], cats. Unemployed since November 2016. Highest education level: bachelor's degree. Not in workforce. Not on disability. 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 Bachelor's degree in [place] Literature at [employer]. Sex at : Male. Sexual orientation: Palacio. Gender identity: Male. Gender of partner(s): Male. Age of first sexual intercourse: 17. Sexually Active: No. Not sexually active. Cliff Jackson " social history reviewed E&M reviewed today Cliff Jackson " is there any chance that you could be ? No Cliff Jackson " assessment of health literacy ([facility] 2014 Standards, 3C10) Adequate Cliff Jackson " passive cigarette smoke exposure Yes Cliff Jackson " smoking status current every day smoker Cliff Jackson " smoking, advice to quit Yes Sandra Monge " Exercise Program Referral T Sandra Monge " Weight Management Counseling Provided T Sandra Monge " Nutrition intervention T Sandra Monge " drug use, illicit Previously Angi [place] " alcohol use Currently Angi [place] " social history E&M Single. Single. Parents when pt was age 16, mother and father both remarried. Relationship with father "I love him but don't like him... we talk on phone 1x a week". Relationship with mother and step-father "perfect and very good". One younger brother, "get along well, he is very busy though". Not homeless. Born in [place]. City: [place]. State: [place]. Lives w/ mom and step-father in [place], 2 cats. Unemployed since November 2016. Highest education level: bachelor's degree. Not in workforce. Not on disability. 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 Bachelor's degree in [place] Literature at [employer]. Sex at : Male. Sexual orientation: Palacio. Gender identity: Male. Gender of partner(s): Male. Age of first sexual intercourse: 17. Sexually Active: No. Not sexually active. Angi Martinez " social history reviewed E&M reviewed today Angi Martinez " sexual orientation Palacio Angi Martinez " is there any chance that you could be ? No Angi Martinez " assessment of health literacy ([facility] 2014 Standards, 3C10) Adequate Angi Martinez " [...] very busy though". Not homeless. Born in [facility]. City: [place]. State: [place]. Lives w/ mom and step-father in [place], 2 cats. Unemployed since November 2016. Highest education level: bachelor's degree. Not in workforce. Not on disability. 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 Bachelor's degree in [place] Literature at [employer]. Sex at : Male. Sexual orientation: Palacio. Gender identity: Male. Gender of partner(s): Male. Age of first sexual intercourse: 17. Sexually Active: No. Not sexually active. Angi Martinez " social history reviewed E&M reviewed today Angi Martinez " sexual orientation Palacio Angi Juan " is there any chance that you could be ? No Angi Martinez " assessment of health literacy ([facility] 2014 Standards, 3C10) Adequate Angi Martinez " passive cigarette smoke exposure Yes Angi Martinez " smoking status current every day smoker Angi [place] sexual orientation Palacio Alexandra Hoffmann sexual orientation Palacio Jazmin Bullard Exercise Program Referral T Sandra Monge [...] very busy though". Not homeless. Born in [facility]. City: [place]. State: [place]. Lives w/ mom and step-father in [place], [facility]. Unemployed since November 2016. Highest education level: bachelor's degree. Not in workforce. Not on disability. 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 Bachelor's degree in [place] Literature at [employer]. Sex at : Male. Sexual orientation: Palacio. [...] Michelle Hill " assessment of health literacy ([facility] 2014 Standards, 3C10) Adequate Michelle Hill " passive cigarette smoke exposure Yes Michelle Hill " smoking status current every day smoker Michelle Hill alcohol use Currently Elizabeth Wolffley " drug use, illicit Previously Elizabeth Wolffley " is there any chance that you could be ? No Elizabeth Checo " sexual orientation Palacio Elizabeth Kessler " passive cigarette smoke exposure No Elizabeth Cehco " smoking status current every day smoker Elizabeth Kessler " assessment of health literacy ([facility] 2014 Standards, 3C10) Adequate Elizabeth Kessler " [...] Michelleadam Hill " alcohol use Currently Michelle Hill " is there any chance that you could be ? No Michelleadam Hill " passive cigarette smoke exposure No Michelle Hill " smoking status current every day smoker Michelle Hill " assessment of health literacy ([facility] 2014 Standards, 3C10) Adequate Michelle Sergio smoking status current every day smoker Buck Ledesma smoking status current every day smoker Buck Ledesma alcohol use, number maximum drinks per occasion 6 pack Buck Keatingudzenon " alcohol use, frequency daily Buck Keatingudzenon " alcohol use Currently Buck Ledesma " [...] very busy though". Not homeless. Born in [facility]. City: [place]. State: [place]. Lives w/ mom and step-father in [place], 2 cats. Unemployed since November 2016. Highest education level: bachelor's degree. Not in workforce. Not on disability. 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 Bachelor's degree in [place] Literature at [employer]. Sex at : Male. Sexual orientation: Palacio. [...] Deepika Chen " assessment of health literacy ([facility] 2014 Standards, 3C10) Adequate Deepika Chen Exercise [...] very busy though". Not homeless. Born in [facility]. City: [place]. State: [place]. Lives w/ mom and step-father in [place], 2 cats. Unemployed since November 2016. Highest education level: bachelor's degree. Not in workforce. Not on disability. 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 Bachelor's degree in [place] Literature at [employer]. Sex at : Male. Sexual orientation: Palacio. [...] Deepika Chen " assessment of health literacy ([facility] 2014 Standards, 3C10) Adequate Deepika Jessicarez Exercise Program Referral T Sandra Monge " Weight Management Counseling Provided T Sandra Monge " Nutrition intervention T Sandra Monge " smoking, advice to quit Yes Sandra Mariposa " drug use, illicit Previously Deepika Chen [...] very busy though". Not homeless. Born in [facility]. City: [place]. State: [place]. Lives w/ mom and step-father in [place], cats. Unemployed since November 2016. Highest education level: bachelor's degree. Not in workforce. Not on disability. 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 Bachelor's degree in [place] Literature at [employer]. Sex at : Male. Sexual orientation: Palacio. Gender identity: Male. Gender of partner(s): Male. Age of first sexual intercourse: 17. Sexually Active: No. Not sexually active. Deepika Valentinoierrez " social history reviewed E&M reviewed today Deepika Gustavo " sexual orientation Palacio Deepika Chen " passive cigarette smoke exposure No Deepika Chen " smoking status current every day smoker Deepika Chen " assessment of health literacy ([facility] 2014 Standards, 3C10) Adequate Deepika Valentinoierrez social [...] very busy though". Not homeless. Born in [facility]. City: [place]. State: [place]. Lives w/ mom and step-father in [address] Unemployed since November 2016. Highest education level: bachelor's degree. Not in workforce. Not on disability. 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 Bachelor's degree in [place] Literature at [employer]. Sex at : Male. Sexual orientation: Palacio. Gender identity: Male. Gender of partner(s): Male. Age of first sexual intercourse: 17. Sexually Active: No. Not sexually active. aJsper Bobo" drug use, illicit Previously Jasper Bobo" alcohol use, number maximum drinks per occasion 4-5 beers Jasper Bobo" alcohol use, frequency daily Jasper Bobo" alcohol use Currently Jasper Bobo " current cigarette packs per day 1-1.5 Jasper Bobo" smoking status current every day smoker Jasper Bobo" sexual orientation Palacio Jasper Bobo " sex [...] assessment Lives w/ mom and step-father in [address] Jasper Bobo " social history reviewed E&M reviewed today Sandra Monge " social history E&M Single. Spouse/Partner/Significant Other: n/a. Family is aware and supportive. Not homeless. Born in [facility]. City: [place]. State: [place]. Lives in [facility] and stepdad in [place] in [facility]. Not employed. Highest education level: bachelor's degree. Not working at this time. Sex at : Male. Sexual orientation: Palacoi. Gender identity: Male. Gender of partner(s): Male. Age of first sexual intercourse: 17 . Sexually Active: No. Not sexually active since he was diagnosed with HIV. Sandra Monge " social history - sexual practice Not sexually active since he was diagnosed with HIV. Sandra Monge " home/family situation, assessment Lives in [facility] and stepdad in [place] in [facility]. Sandra Monge " family support Family is aware and supportive. Sandra Monge " smoking, advice to quit Yes Sandra Monge " assessment of health literacy ([facility] 2014 Standards, 3C10) Adequate Sandra Monge " [...] assessment of judgment and insight E&M intact [facility] " mental status examination: orientation E&M oriented to time, place, and person [facility] " assessment of mood and affect E&M no depression, anxiety, or agitation [facility] " Generalized Anxiety Disorder Questionnaire - Question [...] of judgment and insight E&M intact Nela [facility] " mental status examination: orientation E&M oriented to time, place, and person Nela Shrikanth " assessment of mood and affect E&M no depression, anxiety, or agitation Nela Shrikanth assessment of judgment and insight E&M intact Nlea Shrikanth " mental status examination: orientation E&M [...] Elizabeth Kessler mental status assessment, judgment fair Zishan Samijanetdin " insight (mental status exam) fair Zishan Samiuddin " Mental Status Exam: intelligence adequate fund of information, intact memory processes, oriented to person, oriented to place, oriented to time, oriented to situation, oriented to reality Maryan Samiudzenon " hallucinations none Zishan Samiuddin " thought content (mental status exam) (E&M) lucid Garettshan Bulmaroijanetdin " mental status assessment, process able to [...] " insight (mental status exam) fair Maryan Bulmaroiudzenon " Mental Status Exam: intelligence adequate fund of information, intact memory processes, oriented to person, oriented to place, oriented to time, oriented to situation, oriented to reality Garettshan Samiuddin " hallucinations none Zishan Samiuddin " thought content (mental status exam) (E&M) lucid Buck Ledesma " mental status assessment, process able to abstract, goal-directed, logical Maryan Bulmaroiuddin " mental status assessment, sensorium alert, attentive, clear Garettshan Samiuddin " affect (mental status exam) congruent, euthymic, normal intensity, normal range Garettshan Samiuddin " mood (mental status exam) pleasant Garettshan Bulmaroiuddin " mental status assessment, speech activity [...] dress, looks like stated age, satya Marymaritza Callie mental status assessment, judgment fair Garettshan Bulmaroiuddin " insight (mental status exam) fair Garettshan Bulmaroiuddin " Mental Status Exam: intelligence adequate [...] dress, looks like stated age, satya Garetteamon Callie assessment of judgment and insight E&M intact [...] Questionnaire - Question 1 0 Deepikabeatris Chen assessment of judgment and insight E&M [...] Bobo" mental status assessment, judgment fair Jasper Bobo [...] appropriate dress, looks like stated age, satya Jasper Bobo Generalized Anxiety Disorder Questionnaire - Question 2 0 Michelle Hill " Generalized Anxiety Disorder Questionnaire - Question 1 0 Michelle Sergio MEDICAL EQUIPMENT No Information Available FAMILY HISTORY No Information Available INSURANCE PROVIDERS Payer name Policy type / Coverage type Covered green party ID *Jasper White 0-100% Other [id number] Sliding Fee - Cat 1 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 [id number] *Jasper White 0-100% Other Sliding Fee - Cat 1 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 *Jasper White 0-100% Other [id number] *Jasper White 0-100% Other Sliding Fee - Cat 1 [employer] [place] [id number] *Jasper White 0-100% Other [id number] ADVANCE DIRECTIVES Name Date DISCUSSED - NO [...] - - Est Patient Exp Problem - 21864 Est Patient Detailed - 70043 Est Patient Detailed - 27526 Est Patient Exp Problem - 16432 Est Patient Exp Problem - 46591 Ofc Vst, Est Level III Est Patient Detailed - 37937 First Vx - Ix admin via ID IM or jet injects without counseling by physician Menactra Intramuscular Injectable Vision Vaccines Ordered - Print Consent/Declination Forms Ofc Vst, Est Level IV Xray - Chest - 2 Views - InHouse Handling of specimen for transfer Venipuncture Est Patient Detailed - 93776 Dispensing Visit (UNLIVSTED OPHTHALMOLOGICAL SERVICE/PROCEDURE) INFLUENZA VACCINE QUADRIVALENT 3 YRS PLUS IM Pneumovax Vaccine PPSV23 Admin of Vaccine - Injection - Each Add'l Admin of Vaccine - Injection - 1 Est Patient Detailed - 93258 Progressive lens, per lens Frames, purchases Est Patient Comprehensive Opth - 78267 New Patient Intermediate Opth - 56797 Est Patient Detailed - 90304 Est Patient Detailed - 54490 Est Patient Detailed - 70332 Est Patient Detailed - 96681 Est Patient Exp Problem - 07396 Est Patient Detailed - 79340 Diagnostic evaluation with medical - 56752 INFLUENZA VACCINE QUADRIVALENT 3 YRS PLUS IM Admin of Vaccine - Injection - 1 Est Patient Detailed - 41074 Est Patient Detailed - 89878 Prevnar (PCV13) IM TDAP Admin of Vaccine - Injection - Each Add'l Admin of Vaccine - Injection - 1 Est Patient Well Exam (40 - 64 Yrs) - 16487 Primary [facility] - Psychiatry Diagnostic evaluation (no medical) - 87460 [facility] Assessment - Testing Director Primary Care Service [facility] Xray - Chest - PA & Lat - InHouse Primary Care Service [facility] Handling of specimen for transfer Venipuncture Integrated [facility]al [facility] Assessment (IB) New Patient Well Exam (40 - 64 Yrs) - 06635 Handling of specimen for transfer Venipuncture HISTORY [...] lens Jazmin Bullard completed Frames, purchases Jazmin Face-Me Frame #1111 (Pd 60.00) completed Est Patient Comprehensive Opt - 26158 Edgard Martin completed New Patient Intermediate Opth - 80258 Chriss Martin completed Diagnostic evaluation with medical - 96730 Buck Ledesma completed [facility] Maximus Yancey Time spent with patient: 30 completed Diagnostic evaluation (no medical) - 58934 Jasper Bobo completed [facility] 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
--- OUTSIDE RECORDS SUMMARY | 2020-02-03 02:31 | XMS REPORT ---
Author Author Admin, Santa [employer] Organization Unknown Address Unknown Phone Unavailable PROBLEMS Condition Status Date Provider Notes Encounter for exam of eyes and vision- abnormal findings active Chriss Martin Abscess, axilla, right active Nela Shrikanth Hepatitis B immunity active Nela Shrikanth Hepatitis A immunity active Nela Shrikanth HIV infection active Nela Shrikanth Osteopenia active Sandra Monge Increased transaminase level active Sandra Monge Hypercalcemia completed - Nela Shrikanth Hyperkalemia completed - Nela Shrikanth Hyponatremia completed - Nela Shrikanth Immunization update active Sandra Monge Onychomycosis, toenails active Sandra Monge SPECIAL SCREENING EXAMINATION OTH SPEC VIRAL DZ completed - Edgard Martin Presbyopia - OU active Chriss Martin Regular astigmatism, bilateral active Chriss Martin Myopia - OU active Chriss Martin Hx Bronchitis acute with bronchospasm completed - Nela Shrikanth Hypertriglyceridemia active Sandra Monge Flu shot completed - Nela Shrikabethanyh BMI < 20 active Sandra Monge Vitamin D deficiency active Sandra Monge Immunization update completed - Nela Blackh Hx Latent tuberculosis, s/p INH/B6 active Sandra Monge Stop date 03/16/18 COPD active Sandra Monge seen on CXR TOBACCO USE DISORDER, MODERATE active Jasper Bobo ALCOHOL USE DISORDER, MODERATE active Jasper Bobo DEPRESSIVE DISORDER, OTHER SPECIFIED active Jasper Bobo Screening for hypercholesterolemia completed - Nelairina Blackh ENCOUNTERS Date Type Provider Location Encounter Diagnosis - Ambulatory Encounter Chriss [place] [facility] [place] - Ambulatory Encounter Chrissjesus Martin [facility] [place] [facility] [place] - Ambulatory Encounter Chriss Martin [facility] [place] [facility] [place] - Ambulatory Encounter Chrissjesus Barajas [facility] [place] [facility] Encounter for exam of eyes and vision- abnormal findings - Ambulatory Encounter Betzaida Dunlap [facility] UNK - Ambulatory Encounter Martha Stallworth [facility] UNK - Ambulatory Encounter Nela Missaelnth Nela Schroeder [facility] [facility] UNK - Ambulatory Encounter Nela Santiikabethanyh Nela Wayneh Nancy Jones [facility] UNK - Ambulatory Encounter Marcelino Ghosh [facility] [place] [facility] UNK - Ambulatory Encounter Nela Santiikanth Nela Alexandre Lanza [facility], [facility] [facility] UNK - Ambulatory Encounter Nela Shrikanth Nela Santiikabethanyh [facility] [place] [facility] UNK - Ambulatory Encounter Nela Shrikanth Nela Shrikanth Dorothy Pineda [facility] [facility] UNK - Ambulatory Encounter Nela Shrikanth Nela Santiikanth Dorothy Lanza [facility], [facility] [place] [facility] UNK - Ambulatory Encounter Marcelinojoaquin Jefferson Callizo LM Behavioral Health UNK - Ambulatory Encounter Marcelino Breanneoz Callizo Natalyada Santos [facility] [facility] UNK - Ambulatory Encounter Nela Schroeder [facility] LM Adult Medicine UNK - Ambulatory Encounter Nela Schroeder LM Adult Medicine UNK - Ambulatory Encounter Nela Schroeder Dylongurwinder Walker LM Adult Medicine Abscess, axilla, right - Ambulatory Encounter Sandra Lanza [facility], [facility] [place] [facility] UN[place] - Ambulatory Encounter Dorothy Alberts [facility] UNK - Ambulatory Encounter Isi Bliss [facility] UNK - Ambulatory Encounter Buck Arringtons Isi Jefferson Callizo Apurva Isbell [facility] Contact Center UNK - Ambulatory Encounter Nela Schroeder LinkLogic [facility] [place] [facility] UNK - Ambulatory Encounter Nela Schroeder [facility] LM Adult Medicine UNK - Ambulatory Encounter Nela Schroeder LM Adult Medicine UNK - Ambulatory Encounter Nela Pineda [facility] [place] [facility] Screening for hypercholesterolemiaImmunization updateFlu shotHx Bronchitis acute with bronchospasmHyponatremiaHyperkalemiaHypercalcemia - Ambulatory Encounter Jeromy Recinos [facility] Adult [facility] UNK - Ambulatory Encounter Jeromy Recinos Cliff Jackson [facility] Adult [facility] UNK - Ambulatory Encounter Jeromy Recinos [facility] LM Adult Medicine UNK - Ambulatory Encounter Mare Carbajal [facility] Adult Medicine UNK - Ambulatory Encounter Dorothy Nash [facility] UNK - Ambulatory Encounter Jeromy Recinos [facility] LM Adult Medicine UNK - Ambulatory Encounter Cliff Arnold [facility] [place] [facility] UNK - Ambulatory Encounter Nela Schroeder [facility] Adult Medicine UNK - Ambulatory Encounter Nela Schroeder [facility] Adult Medicine UNK - [facility] - Ambulatory Encounter Nela Schroeder LinkLogic [facility] [facility] UNK - Ambulatory Encounter Martha Stallworth [facility] UNK - Ambulatory Encounter Nela Schroeder LM Adult Medicine UNK - Ambulatory Encounter Nela Stallworth [facility] [place] Adult Medicine HIV infectionHepatitis A immunityHepatitis B immunity - Ambulatory Encounter Cliff Galvez [facility] UNK - Ambulatory Encounter Mare Raven [facility] Adult Medicine UNK - Ambulatory Encounter Rinal Recinos Sheebaracehll Manuel [facility] Adult Medicine UNK - Ambulatory Encounter Bethanyjaswant Pinzon [facility] UNK - Ambulatory Encounter Rinal Recinos [facility] Adult [facility] UNK - Ambulatory Encounter Rinal Recinos [facility] Adult [facility] UNK - Ambulatory Encounter Jazlyn Nash [facility] [facility] UNK - Ambulatory Encounter Rinal Recinos [facility] LM Adult Medicine UNK - Ambulatory Encounter Rinal Recinos [facility] LM Adult Medicine UNK - Ambulatory Encounter Rinal Recinos [facility] UNK - Ambulatory Encounter Sandra Monge LM Adult Medicine UNK - Ambulatory Encounter Sandra Monge [facility] [place] [facility] Osteopenia - Ambulatory Encounter Cliff Jackson [facility] Adult Medicine UNK - Ambulatory Encounter Destinial Recinos [facility] Adult [facility] UNK - Ambulatory Encounter Rinal Recinos Cliff Jackson LM Adult Medicine UNK - Ambulatory Encounter Cliff Jackson LM Adult Medicine UNK - Ambulatory Encounter Cliff Jackson [facility] LM Adult Medicine UNK - Ambulatory Encounter Sandra Monge [facility] Rinal Recinos LM Adult Medicine UNK - Ambulatory Encounter Sandra Monge [facility] Meghnarachell Arnold [facility] [place] [place] [facility] UNK - Ambulatory Encounter Fax Status [facility] UNK - Ambulatory Encounter F[facility] - Ambulatory Encounter Fax [facility] - Ambulatory Encounter Fax Status [facility] UNK - Ambulatory Encounter Mare Murillo [facility] [place] [facility] UNK - Ambulatory Encounter Jeromy Recinos LinkLogkendrick Carbajal [facility] [facility] Medicine UNK - Ambulatory Encounter Jeromy Recinos LinkLogic [facility] [place] [facility] Medicine UNK - Ambulatory Encounter Meghna Nash [facility] [place] [facility] Medicine UNK - Ambulatory Encounter Fax Status [facility] - Ambulatory Encounter F[facility]ulatory Encounter Sandra Monge [facility] [place] [facility] Medicine UNK - Ambulatory Encounter Sandra Nash [facility] [place] [facility] UNK - Ambulatory Encounter Lashaun Monge [facility] UNK - Ambulatory Encounter Sandra Monge LinkLogic [facility] [place] [facility] Medicine UNK - Ambulatory Encounter Jeromy Recinos [facility] [place] [place] [facility] Medicine UNK - Ambulatory Encounter Rinal Jorje Jackson [facility] [place] [facility] UNK - Ambulatory Encounter Cliff Jackson [facility] [place] [facility] UNK - Ambulatory Encounter Meghna Nash [facility] [place] [facility] Medicine UNK - Ambulatory Encounter Cliff Jackson [facility] [place] [place] [facility] Medicine UNK - Ambulatory Encounter Fax Status [facility] - Ambulatory Encounter Fax Status [facility] UNK - Ambulatory Encounter Sandra GoldsteinLogic [facility] [place] [facility] UNK - Ambulatory Encounter Sandra Monge [facility] [place] [facility] Medicine UNK - Ambulatory Encounter Sandra Rubirachell Virktim Quiles [facility] [place] [facility] Medicine Increased transaminase level - Ambulatory Encounter Sandra Monge LinkLogic [facility] [place] [facility] Medicine UNK - Ambulatory Encounter Sandra Mcgowan [facility] [place] [facility] Medicine UNK - Ambulatory Encounter Sandra Monge LinkLogkendrick [facility] [place] [facility] UNK - Ambulatory Encounter Sandra Monge [facility] [place] [facility] Medicine UNK - Ambulatory Encounter Sandra Martinez [facility] [place] [facility] Hx Bronchitis acute with bronchospasmHyponatremiaHyperkalemiaHypercalcemia - Ambulatory Encounter Sandra Lanza [facility], [facility] [place] [facility] UNK - Ambulatory Encounter Sandra Lanza [facility], [facility] [place] [facility] UNK - Ambulatory Encounter Cliff Jackson [facility] [place] [facility] UNK - Ambulatory Encounter Sandra Monge [facility] UNK - Ambulatory Encounter Sandra Kowalski Cliff Jackson [facility] [place] [facility] UNK - Ambulatory Encounter Sandra Lanza [facility], [facility] [place] [facility] UNK - Ambulatory Encounter Sandra Lanza [facility], [facility] [place] [facility] UNK - Ambulatory Encounter Boni Cristina [facility] UNK [facility] Ambulatory Encounter Jazmin Bullard [facility] [place] [facility] - Ambulatory Encounter Jazmin Bullard [facility] [place] [facility]K - Ambulatory Encounter Sandra GoldsteinLogkendrick [facility] [place] [facility] UNK - Ambulatory Encounter Sandra GoldsteinLogic [facility] Medicine UNK - Ambulatory Encounter Sanrda Monge [facility] [place] [facility] UNK - Ambulatory Encounter Sandra Martinez [facility] Onychomycosis, toenailsImmunization update - Ambulatory Encounter Jazmin Bullard [facility] [place] [place] [facility] - Ambulatory Encounter Edgard Martin [facility] [place] [facility] Ambulatory Encounter Edgard [facility] UNK - Ambulatory Encounter Edgard Hoffmann [facility] [place] [facility] SPECIAL SCREENING EXAMINATION OTH SPEC VIRAL DZ - Ambulatory Encounter Chriss Martin [facility] UNK - Ambulatory Encounter Chriss Martin [facility] UNK - Ambulatory Encounter Chriss Martin [facility] UNK - Ambulatory Encounter Chriss Bullard [facility] Myopia - OURegular astigmatism, bilateralPresbyopia - OU - Ambulatory Encounter Sandra Kowalski [facility] [place] [facility] UNK - Ambulatory Encounter Sandra Vargas [facility] [place] [facility] UNK - Ambulatory Encounter Sandra Vargas [facility] UNK - Ambulatory Encounter Sandra Yancey MedAdherence [facility] UNK - Ambulatory Encounter Sandra Lanza [facility], [facility] UNK - Ambulatory Encounter Sandra Lanza [facility], [facility] UNK - Ambulatory Encounter Sandra Lanza [facility], [facility] UNK - Ambulatory Encounter Sandra Lanza [facility], [facility] UNK - Ambulatory Encounter Sandra Lanza [facility], [facility] UNK - Ambulatory Encounter Sandra Lanza [facility], [facility] UNK - Ambulatory Encounter Khloe Mckeon [facility] UNK - Ambulatory Encounter Khloe Lee [facility] UNK - Ambulatory Encounter Amaury Nath [facility] UNK - Ambulatory Encounter Amaury Nath [facility] UNK - Ambulatory Encounter Sandra Monge LM Adult Medicine UNK - Ambulatory Encounter Sandra Monge LM Adult Medicine UNK - Ambulatory Encounter Sandra Hill [facility] Hx Latent tuberculosis, s/p INH/B6Hx Bronchitis acute with bronchospasm - Ambulatory Encounter Buck Ledesma [facility] UNK - Ambulatory Encounter Buck Ledesma LinkLogic [facility] UNK - Ambulatory Encounter Sandra Vargas [facility] Medicine UNK - Ambulatory Encounter Sandra GoldsteinLogkendrick Vargas [facility] Medicine UNK - Ambulatory Encounter Sandra Bush [facility] UNK - Ambulatory Encounter Buck Ledesma [facility] UNK - Ambulatory Encounter Buck Ledesma LinkLogic [facility] UNK - Ambulatory Encounter Buck Solares [facility] UNK - Ambulatory Encounter Sandra Castro [facility] UNK - Ambulatory Encounter Sandra Monge [employer]Log[employer] Leny Nicol Castro [facility] UNK - Ambulatory Encounter Sandra Monge LM Adult Medicine UNK - Ambulatory Encounter Sandra Monge LM Adult Medicine UNK - Ambulatory Encounter Sandra Kessler [facility] UNK - Ambulatory Encounter Sandra Monge LM Adult Medicine UNK - Ambulatory Encounter Sandra Monge [facility] LM Adult Medicine UNK - Ambulatory Encounter Nancy [facility] UNK - Ambulatory Encounter Khloe Jesus [facility] UNK - Ambulatory Encounter Nancy Jones LinkLogic [facility] UNK - Ambulatory Encounter Buck Burris [facility] UNK [facility] Ambulatory Encounter Sandra Monge [facility] UNK - Ambulatory Encounter Sandra Hill [facility] Hx Latent tuberculosis, s/p INH/[id number] - Ambulatory Encounter Sandra Monge [facility] LM Adult Medicine UNK - Ambulatory Encounter Sandra Boss [facility] UNK - Ambulatory Encounter Buck Clarke [facility] UNK - Ambulatory Encounter Buck Ledesma [facility] UNK - Ambulatory Encounter Buck GoldsteinLogic [facility] UNK - Ambulatory Encounter Sandra Monge LinkLogic [facility] UNK - Ambulatory Encounter Buck Villeda [facility] UNK - Ambulatory Encounter Buck Burris [facility] UNK - Ambulatory Encounter Lashaun Mckeon [facility] UNK - Ambulatory Encounter [facility] UNK - Ambulatory Encounter Garetteamon Keatingjanetzenon [facility] UNK - Ambulatory Encounter Garetteamon Bliss [facility] UNK - Ambulatory Encounter Sandra GoldsteinLogkendrick [facility] UNK - Ambulatory Encounter Sandra Monge [facility] UNK - Ambulatory Encounter Sandra Chen [facility] [place] Adult Medicine Flu shot - Ambulatory Encounter Sandra GoldsteinLogkendrick [facility] UNK - Ambulatory Encounter Sandra Chen [facility] Medicine UNK - Ambulatory Encounter Sandra Monge [facility] Medicine UNK - Ambulatory Encounter Sandra Chen [facility] Adult Medicine BMI < 20 - Ambulatory Encounter Sandra GoldsteinLogkendrick [facility] [place] [facility] UNK - Amb[facility] - Ambulatory Encounter Sandra Monge [facility] UNK - Ambulatory Encounter Sandra Chen [facility] Adult Medicine Immunization updateVitamin D deficiency - Ambulatory Encounter Sandra Monge [facility] UNK - Ambulatory Encounter Jason Gilliam [facility] UNK - Ambulatory Encounter Sandra Hill [facility] Medicine UNK - Ambulatory Encounter [facility] Care Coordination Desktop Dex Hill [facility] UNK - Ambulatory Encounter Sandra Monge [facility] Adult Medicine COPDHx Latent tuberculosis, s/p INH/B6 - Ambulatory Encounter Sandra Kowalski [facility] [place] [facility] UNK - Ambulatory Encounter Maximus Yancey [facility] Final Inspector Shuttle UNK - Ambulatory Encounter Maximus Yancey [facility] [place] Final Inspector Shuttle UNK - Ambulatory Encounter Jason Nath [facility] UNK - Ambulatory Encounter Sandra Kowalski [facility] Medicine UNK - Ambulatory Encounter Maximus Yancey [facility] [place] Final Inspector Shuttle UNK - Ambulatory Encounter Sandra Mcgowan [facility] Medicine UNK - Ambulatory Encounter Maximus Yancey [facility] [place] Final Inspector Shuttle UNK - Ambulatory Encounter Sandra Monge [facility] Medicine UNK - Ambulatory Encounter Jasper Keller [facility] DEPRESSIVE DISORDER, OTHER SPECIFIEDALCOHOL USE DISORDER, MODERATETOBACCO USE DISORDER, MODERATE - Ambulatory Encounter Sandra Jamison [facility] [place] [facility] Medicine - Amb[facility] - Ambulatory Encounter Sandra Day [facility] Adult Medicine Screening for hypercholesterolemia - Ambulatory Encounter Adrian Cristina [facility] UNK - Ambulatory Encounter Sandra Mariposamelly Flores Mariposa LinkLogic [facility] Vision UNK VITAL SIGNS Date Observation Value [...] Pineda " pulse rate E&M 72 /min Dorothy Pineda " blood pressure, diastolic 89 mm[Hg] Dorothy Pineda " blood pressure, systolic 134 mm[Hg] Dorothy Pineda " temperature E&M 98.7 [degF] Dorothy Pineda " weight E&M 138.13 lbs. Dorothy Pineda " weight in kilograms E&M 62.79 kg Dorothy Pineda " method used to obtain blood pressure automatic Dorothy Pindea " Blood Pressure Position 01 sitting Dorothy Pineda " blood pressure, site #1 left arm Dorothy Pineda " temperature site oral Dorothy Pineda " height E&M 72 [in_i] Dorothy Pineda " height in centimeters E&M 182.88 cm Dorothy Pineda method used to obtain blood pressure automatic [...] blood pressure, site #1 right arm Dylon E Aaron " Blood Pressure Position 01 sitting Dylon Walker " method used to obtain blood pressure automatic Dylon Belle Walker " temperature site oral Dylon Walker " weight E&M 141 lbs. Dylon Belle Walker " weight in kilograms E&M 64.09 kg Dylon Walker " height E&M 72 [in_i] Dylon Walker " height in centimeters E&M 182.88 cm Dylon Walker blood pressure, diastolic 96 mm[Hg] Dorothy Edwin " blood pressure, systolic 125 mm[Hg] Dorothy Edwin " oxygen saturation, oximetry 98 % Dorothy Pineda " pulse rate E&M 82 /min Dorothy Pineda " temperature E&M 98.5 [degF] Dorothy Edwin " weight E&M 139 lbs. Dorothy Edwin " weight in kilograms E&M 63.18 kg Dorothy Edwin " method used to obtain blood pressure automatic Dorothy Pineda " Blood Pressure Position 01 sitting Dorothy Edwin " blood pressure, site #1 left arm Dorothy Edwin " temperature site oral Dorothychanda Pineda " height E&M 72 [in_i] Dorothy Edwin " height in centimeters E&M 182.88 cm Dorothy Pineda oxygen saturation, oximetry 98 % Cliff Jackson " blood pressure, diastolic 70 mm[Hg] Cliff Jackson " blood pressure, systolic 108 mm[Hg] Cliff Jackson " pulse rate E&M 86 /min Cliff Jackson " temperature E&M 98.9 [degF] Cliff Jackson " weight E&M 140.40 lbs. Cliff Jackson " weight in kilograms E&M 63.82 kg Cliff Jackson " blood pressure, site #1 right arm Cliff Jackson " Blood Pressure Position 01 sitting Cliff Jackson " method used to obtain blood pressure automatic Cliff Jackson " temperature site oral Cliff Jackson " height E&M 72 [in_i] Cliff Jackson " height in centimeters E&M 182.88 cm Cliff Jackson temperature site oral Kari Crawford " oxygen saturation, oximetry 98 % Kari Crawford " pulse rate E&M 88 /min Kari Crawford " temperature E&M 98.3 [degF] Kari Crawford " blood pressure, diastolic 82 mm[Hg] Kari Crawford " blood pressure, systolic 117 mm[Hg] Kari Crawford " weight E&M 145.13 lbs. Karianam Vegaz " weight in kilograms E&M 65.97 kg Kari Crawford " height E&M 72 [in_i] Kari Crawford " height in centimeters E&M 182.88 cm Kari Crawford " method used to obtain blood pressure automatic Kari Crawford " Blood Pressure Position 01 sitting Kari Ty " blood pressure, site #1 left arm Kari Crawford blood pressure, diastolic 84 mm[Hg] Cliff Jackson " blood pressure, systolic 122 mm[Hg] Cliff Jackson " pulse rate E&M 90 /min Cliff Jackson " oxygen saturation, oximetry 97 % Bethanyjaswant Jackson " temperature E&M 99.1 [degF] Bethanyjaswant Jackson " weight E&M 146 lbs. Trenasofia Jackson " weight in kilograms E&M 66.36 kg Bethanyjaswant Jackson " blood pressure, site #1 right arm Bethanyjaswant Jackson " Blood Pressure Position 01 sitting Bethanyjaswant Jackson " method used to obtain blood pressure automatic Cliff Jackson " temperature site oral Bethanyjaswant Jackson " height E&M 72 [in_i] Bethanylouiserachell Manuel " height in centimeters E&M 182.88 cm Bethanylouiserachell Manuel blood pressure, diastolic 79 mm[Hg] Angi Gold Creek " blood pressure, systolic 114 mm[Hg] Angi Gold Creek " oxygen saturation, oximetry 98 % Angi Gold Creek " pulse rate E&M 88 /min Angi Gold Creek " temperature E&M 98.9 [degF] Angi Juan " weight E&M 145.13 lbs. Angi Gold Creek " weight in kilograms E&M 65.97 kg Angi Gold Creek " method used to obtain blood pressure automatic Angi Gold Creek " Blood Pressure Position 01 sitting Angi Gold Creek " blood pressure, site #1 left arm Angi Juan " temperature site oral Angi Hessrod " height E&M 72 [in_i] Angi Hessrod " height in centimeters E&M 182.88 cm Angi Martinez oxygen saturation, oximetry 95 % Angi Hessrod " blood pressure, diastolic 88 mm[Hg] Angi Gold Creek " blood pressure, systolic 129 mm[Hg] Angi Gold Creek " pulse rate E&M 96 /min Angi Juan " temperature E&M 98.4 [degF] Angi Juan " weight E&M 142 lbs. Angi Hessrod " weight in kilograms E&M 64.55 kg Angi Gold Creek " method used to obtain blood pressure automatic Angi Hessrod " Blood Pressure Position 01 sitting Angi Martinez " blood pressure, site #1 left arm Angi Gold Creek " temperature site oral Angi Hessrod " height E&M 72 [in_i] Angi Hessrod " height in centimeters E&M 182.88 cm Angi Martinez blood pressure, diastolic 62 mm[Hg] Michelle Sergio " blood pressure, systolic 99 mm[Hg] Michelle Sergio " oxygen saturation, oximetry 96 % Michelle Sergio " pulse rate E&M 105 /min Michelle Sergio " temperature E&M 97.4 [degF] Michelle Sergio " weight E&M 129 lbs. Michelle Sergio " weight in kilograms E&M 58.64 kg Mcihelle Sergio " method used to obtain blood pressure automatic Michelle Sergio " Blood Pressure Position 01 sitting Michelle Sergio " blood pressure, site #1 right arm Michelle Sergio " temperature site oral Michelle Sergio " height E&M 72 [in_i] Michelle Sergio " height in centimeters E&M 182.88 cm Michelle Sergio oxygen saturation, oximetry 99 % Elizabeth Kessler " blood pressure, diastolic 64 mm[Hg] Elizabeth Kessler " blood pressure, systolic 98 mm[Hg] Elizabeth Kessler " pulse rate E&M 83 /min Elizabeth Kessler " temperature E&M 98.5 [degF] Elizabeth Kessler " weight E&M 130.40 lbs. Elizabeth Kessler " weight in kilograms E&M 59.27 kg Elizabeth Kessler " method used to obtain blood pressure automatic Elizabeth Kessler " Blood Pressure Position 01 sitting Elizabeth Checo " blood pressure, site #1 right arm Elizabeth Checo " temperature site tympanic Elizabeth Checo " height E&M 72 [in_i] Elizabeth Checo " height in centimeters E&M 182.88 cm Elizabeth Checo method used to obtain blood pressure automatic Angi Burris " Blood Pressure Position 01 sitting Angi Burris " blood pressure, site #1 left arm Angi Burris " blood pressure, diastolic 80 mm[Hg] Angi Burris " blood pressure, systolic 113 mm[Hg] Angi Burris " pulse rate E&M 80 /min Angi Burris " weight E&M 128.80 lbs. Angi Burris " weight in kilograms E&M 58.55 kg Angi Burris " height E&M 72 [in_i] Angi Burris " height in centimeters E&M 182.88 cm Angi Burris blood pressure, diastolic 106 mm[Hg] Michelle Hill " blood pressure, systolic 151 mm[Hg] Michelle Hill " pulse rate E&M 98 /min Michelle Hill " oxygen saturation, oximetry 99 % Michelle Hill " temperature E&M 97.8 [degF] Michelle Hill " weight E&M 127 lbs. Michelle Hill " weight in kilograms E&M 57.73 kg Michelle Hill " method used to obtain blood pressure automatic Michelle Hill " Blood Pressure Position 01 sitting Michelle Hill " blood pressure, site #1 right arm Michelle Hill " temperature site tympanic Michelle Hill " height E&M 72 [in_i] Michelle Hill " height in centimeters E&M 182.88 cm Michelle Hill method used to obtain blood pressure automatic Emil Caro " Blood Pressure Position 01 sitting Emil Caro " blood pressure, site #1 right arm Emil Caro " blood pressure, diastolic 71 mm[Hg] Emil Najeramez " blood pressure, systolic 104 mm[Hg] Emil Caro " pulse rate E&M 89 /min Emil Caro " weight E&M 131.25 lbs. Buck Ledesma " weight in kilograms E&M 59.66 kg Buck Ledesma " height E&M 72 [in_i] Emil Caro " height in centimeters E&M 182.88 cm Emil Gordo method used to obtain blood pressure automatic [...] " blood pressure, systolic 110 mm[Hg] Isi Ruthy " pulse rate E&M 120 /min Isi Ruthy " weight E&M 136 lbs. Isi Bliss " weight in kilograms E&M 61.82 kg Isi Bliss " height E&M 72 [in_i] Isi Bliss " height in centimeters E&M 182.88 cm Isi Bliss blood pressure, diastolic 74 mm[Hg] Deepika Chen " blood pressure, systolic 109 mm[Hg] Deepika Chen " pulse rate E&M 80 /min Deepika Gustavo " oxygen saturation, oximetry 99 % Deepika Chen " temperature E&M 97.0 [degF] Deepika Chen " weight E&M 136.80 lbs. Deepika Chen " weight in kilograms E&M 62.18 kg Deepika Chen " method used to obtain blood pressure automatic Deepika Chen " Blood Pressure Position 01 sitting Deepikabeatris Chen " blood pressure, site #1 left [...] creatinine, urine, 24 hour 2076 mg/24h [employer] [id number] High " creatinine, random, urine 38.1 mg/dL [...] creatinine, urine, 24 hour 1562 mg/24h [employer] [id number] " creatinine, random, urine 25.4 mg/dL [employer] [...] >3.0 " B-12, serum 471 pg/mL [employer] 359-029 3061/04/21 human leukocyte antigen B57 negative Sandra Monge [...] Vaccine Dose Lot Number Status riri klein [facility] [id number] sanofi pasteur 0.5 mL [id number] completed HISTORY OF MEDICATION USE Medication Instructions Dates Provider Comments DRYSOL 20 % EXTERNAL SOLUTION Apply once daily Nela Hancockikaanthony HYPERCARE 15 % EXTERNAL SOLUTION Apply once daily as needed Nela Shrikanth PROZAC 20 MG ORAL CAPSULE Take one capsule daily. Marcelino Flores PIFELTRO 100 MG ORAL TABLET Take 1 tablet orally once daily Nela Santikendranth ONDANSETRON 4 MG ORAL TABLET DISINTEGRATING 1 By Mouth every 8 hours as needed for nausea/vomiting. Sandra Monge PREZCOBIX 800-150 MG ORAL TABLET 1 tab by mouth daily with food - Nela Santicaleb FENOFIBRATE 48 MG ORAL TABLET tk 1 [...] Mouth Every Day with food - Sandra Mariposa NORVIR 100 MG ORAL TABLET 1 By Mouth Every Day - Sandra Mariposa PREZISTA 800 MG ORAL TABLET 1 by mouth once a day with food - Sandra Monge SOCIAL HISTORY Date Observation Value Provider sexual orientation Palacio Jess Karl time of call 11/15/2019 1:21 PM Martha Stallworth drug use, illicit Previously Marcelino Flores " [...] very busy though". Not homeless. Born in [facility]. City: [place]. State: [place]. Lives w/ mom and step-father in [place], cats. Unemployed since November 2016. Highest education level: bachelor's degree. Not in workforce. Not on disability. 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 Bachelor's degree in Norwegian Literature at [employer]. Sex at : Male. Sexual orientation: Palacio. Gender identity: Male. Gender of partner(s): Male. Age of first sexual intercourse: 17. Sexually Active: No. Not sexually active. Marcelino Flores " social history reviewed E&M reviewed today Marcelino Flores drug use, illicit Previously Dorothy Edwin " alcohol use Currently Dorothychanda Pineda " [...] though". Not homeless. Born in [place] City: [place]. State: [place]. Lives w/ mom and step-father in [place], 2 cats. Unemployed since November 2016. Highest education level: bachelor's degree. Not in workforce. Not on disability. 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 Bachelor's degree in Norwegian Literature at [employer]. Sex at : Male. Sexual orientation: Palacio. Gender identity: Male. Gender of partner(s): Male. Age of first sexual intercourse: 17. Sexually Active: No. Not sexually active. Dorothy Edwin " social history reviewed E&M reviewed today Dorothychanda Pineda " assessment of health literacy (COMMUNITY HEALTH 2014 Standards, 3C10) Adequate Dorothy Edwin " passive cigarette smoke exposure No Dorothychanda Pineda " smoking status current every day smoker Dorothybarby Pineda drug use, illicit Previously Marcelino Leoz Callizo " alcohol use Currently Marcelino Leolga Callizo " smoking status current every day [...] very busy though". Not homeless. Born in [facility]. City: [place]. State: [place]. Lives w/ mom and step-father in [place], 2 cats. Unemployed since November 2016. Highest education level: bachelor's degree. Not in workforce. Not on disability. 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 Bachelor's degree in Norwegian Literature at [employer]. Sex at : Male. Sexual orientation: Palacio. Gender identity: Male. Gender of partner(s): Male. Age of first sexual intercourse: 17. Sexually Active: No. Not sexually active. Marcelino Flores " social history reviewed E&M reviewed today Marcelino Flores " sexual orientation Palacio Dylon Walker " is there any chance that you could be ? No Dylon Walker " assessment of health literacy (COMMUNITY HEALTH 2014 Standards, 3C10) Adequate Dylon Walker " [...] very busy though". Not homeless. Born in [facility]. City: [place]. State: [place]. Lives w/ mom and step-father in [place], [facility]. Unemployed since November 2016. Highest education level: bachelor's degree. Not in workforce. Not on disability. 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 Bachelor's degree in Norwegian Literature at [employer]. Sex at : Male. Sexual orientation: [...] very busy though". Not homeless. Born in [facility]. City: [place]. State: [place]. Lives w/ mom and step-father in [place], 2 cats. Unemployed since November 2016. Highest education level: bachelor's degree. Not in workforce. Not on disability. 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 Bachelor's degree in [employer] Literature at [employer]. Sex at : Male. Sexual orientation: [...] though". Not homeless. Born [place] City: [place]. State: [place]. Lives w/ mom and step-father in [place], 2 cats. Unemployed since November 2016. Highest education level: bachelor's degree. Not in workforce. Not on disability. 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 Bachelor's degree in [employer] Literature at [employer]. Sex at : Male. Sexual orientation: [...] PM Leonor Napier drug use, illicit Previously Sheebarachell Manuel " alcohol use Currently Bethanyjaswant Jackson " social history E&M Single. Single. Parents when pt was age 16, mother and father both remarried. Relationship with father "I love him but don't like him... we talk on phone 1x a week". Relationship with mother and step-father "perfect and very good". One younger brother, "get along well, he is very busy though". Not homeless. Born in [facility]. City: [place]. State: [place]. Lives w/ mom and step-father in [place], 2 cats. Unemployed since November 2016. Highest education level: bachelor's degree. Not in workforce. Not on disability. 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 Bachelor's degree in [employer] Literature at [employer]. Sex at : Male. Sexual orientation: Palacio. Gender identity: Male. Gender of partner(s): Male. Age of first sexual intercourse: 17. Sexually Active: No. Not sexually active. Cliff Jackson " social history reviewed E&M reviewed today Cliff Manuel " is there any chance that you could be ? No Sheebarachell Manuel " assessment of health literacy (COMMUNITY HEALTH 2014 Standards, 3C10) Adequate Bethanylouiserachell Jackson " passive cigarette smoke exposure Yes Sheebarachell Manuel " smoking status current every day smoker Sheebarachell Manuel " smoking, advice to quit Yes Sandra Monge " Exercise Program Referral T Sandra Monge " Weight Management Counseling Provided T Sandra Monge " Nutrition intervention T Sandra Monge " drug use, illicit Previously Angi Gold Creek " alcohol use Currently Angi Gold Creek " social history E&M Single. Single. Parents when pt was age 16, mother and father both remarried. Relationship with father "I love him but don't like him... we talk on phone 1x a week". Relationship with mother and step-father "perfect and very good". One younger brother, "get along well, he is very busy though". Not homeless. Born in [facility]. City: [place]. State: [place]. Lives w/ mom and step-father in [place], cats. Unemployed since November 2016. Highest education level: bachelor's degree. Not in workforce. Not on disability. 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 Bachelor's degree in Norwegian Literature at [employer]. Sex at : Male. Sexual orientation: [...] very busy though". Not homeless. Born in [facility]. City: [place]. State: [place]. Lives w/ mom and step-father in [place], 2 cats. Unemployed since November 2016. Highest education level: bachelor's degree. Not in workforce. Not on disability. 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 Bachelor's degree in Norwegian Literature at [employer]. Sex at : Male. Sexual orientation: [...] very busy though". Not homeless. Born in [facility]. City: [place]. State: [place]. Lives w/ mom and step-father in [place], cats. Unemployed since November 2016. Highest education level: bachelor's degree. Not in workforce. Not on disability. 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 Bachelor's degree in [employer] Literature at [employer]. Sex at : Male. Sexual orientation: [...] Michelle Sergio " assessment of health literacy (COMMUNITY [...] Kessler " Exercise Program Referral T Elizabeth Ksesler " Weight Management Counseling Provided T Elizabeth [...] Michelle Sergio " assessment of health literacy (COMMUNITY HEALTH 2014 Standards, 3C10) Adequate Michelle Sergio smoking status current every day smoker Buck Chamberlainkaden smoking status current every day smoker Buck Chamberlainijagdeep alcohol use, number maximum drinks per occasion [...] very busy though". Not homeless. Born in [facility]. City: [place]. State: [place]. Lives w/ mom and step-father in [place], 2 cats. Unemployed since November 2016. Highest education level: bachelor's degree. Not in workforce. Not on disability. 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 Bachelor's degree in [employer] Literature at [employer]. Sex at : Male. Sexual orientation: [...] Deepika Gustavo " assessment of health literacy ([facility] 2014 Standards, 3C10) Adequate Deepika Chen [...] very busy though". Not homeless. Born in [facility]. City: [place]. State: [place]. Lives w/ mom and step-father in [place], 2 cats. Unemployed since November 2016. Highest education level: bachelor's degree. Not in workforce. Not on disability. 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 Bachelor's degree in [employer] Literature at [employer]. Sex at : Male. Sexual orientation: Palacio. Gender identity: Male. Gender of partner(s): Male. Age of first sexual intercourse: 17. Sexually Active: No. Not sexually active. Deepikabeatris Chen " social history reviewed E&M reviewed today Deepika Gustavo " drug use, illicit Previously Deepika Chen " alcohol use Currently Deepika Chen " sexual orientation Palacio Deepikabeatris Chen " passive cigarette smoke exposure No Deepikabeatris Jessicarez " smoking, advice to quit Yes Deepiakbeatris Chen " smoking status current every day smoker Deepika Chen " assessment of health literacy (COMMUNITY HEALTH 2014 Standards, 3C10) Adequate Deepika Jessicarez Exercise Program Referral T Sandra Monge " Weight Management Counseling Provided T Sandra Monge " Nutrition intervention T Sandra Monge " smoking, advice to quit Yes Sandra Monge " drug use, illicit Previously Deepika Jessicarez " alcohol use Currently Deepika Chne " social history E&M Single. Single. Parents when pt was age 16, mother and father both remarried. Relationship with father "I love him but don't like him... we talk on phone 1x a week". Relationship with mother and step-father "perfect and very good". One younger brother, "get along well, he is very busy though". Not homeless. Born in [facility]. City: [place]. State: [place]. Lives w/ mom and step-father in [place], 2 cats. Unemployed since November 2016. Highest education level: bachelor's degree. Not in workforce. Not on disability. 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 Bachelor's degree in [employer] Literature at [employer]. Sex at : Male. Sexual orientation: Palacio. Gender identity: Male. Gender of partner(s): Male. Age of first sexual intercourse: 17. Sexually Active: No. Not sexually active. Deepika Jessicarez " social history reviewed E&M reviewed today Deepika Jessicarez " sexual orientation Palacio Deepika Valentinoierrez " passive cigarette smoke exposure No Deepika Jessicarez " smoking status current every day smoker Deepika Chen " assessment of health literacy (COMMUNITY HEALTH [...] very busy though". Not homeless. Born in [facility]. City: [place]. State: [place]. Lives w/ mom and step-father in [place], 2 cats. Unemployed since November 2016. Highest education level: bachelor's degree. Not in workforce. Not on disability. 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 Bachelor's degree in [employer] Literature at [employer]. Sex at : Male. Sexual orientation: [...] assessment Lives w/ mom and step-father in [place], 2 cats. Jasper Bobo " social history reviewed E&M reviewed today Sandra Monge " social history E&M Single. Spouse/Partner/Significant Other: n/a. Family is aware and supportive. Not homeless. Born in [facility]. City: [place]. State: [place]. Lives in [facility] and stepdad in [place] in [facility]. Not employed. Highest education level: bachelor's [...] Monge " home/family situation, assessment Lives in Mom and stepdad in [place] in [facility]. Sandra Monge " family support Family [...] Provider mental status assessment, judgment fair Marcelino Flores " insight (mental status exam) fair Marcelino Flores " Mental Status Exam: intelligence adequate fund of information, intact memory processes, oriented to person, oriented to place, oriented to time, oriented to situation, oriented to reality Marcelino Flores " hallucinations none Marcelino Leoz Callizo " [...] euthymic, normal intensity, normal range, reactive Marcelino Breanneoz Callizo " mood (mental status exam) pleasant Marcelino Leoz Callizo " mental status assessment, speech activity normal flow, normal pace, normal pressure, normal rate, normal tone, normal volume, spontaneous, loud Marcelino Li Callizo " mental status assessment, motor activity normal gait, normal posture Marcelino Li Callizo " behavior (mental status exam) appropriate, candid, cooperative, good eye contact, polite, responsive Marcelino Li Callizo " mental appearance (mental status exam) adequate hygiene, appropriate dress, looks like stated age, neat, smells of heavy cigarette smoke/tobacco Marcelino Li Callizo assessment of judgment and insight E&M [...] E&M good eye contact, normal affect Edgard Nohemi Mario " mental status examination: orientation E&M alert and oriented to person, place, and time Edgard Martin assessment of judgment and insight E&M intact Sanrda Mariposa " mental status examination: orientation E&M [...] content (mental status exam) (E&M) lucid Maryan Bulmaroiuddin " mental status assessment, process able to [...] normal tone, normal volume, spontaneous, loud Garettmaritza Keatinguddin " mental status assessment, motor activity normal gait, normal posture Garettmaritza Ledesma " behavior (mental status exam) appropriate, candid, cooperative, good eye contact, polite, responsive Garettmaritza Keatingudzenon " mental appearance (mental status exam) adequate hygiene, appropriate dress, looks like stated age, neat Marymaritza Callie assessment of judgment and insight E&M [...] Michelle Hill mental status assessment, judgment fair Maryan Bulmaroiudzenon " insight (mental status exam) fair Buck Chamberlainijagdeep " Mental Status Exam: intelligence adequate fund of information, intact memory processes, oriented to person, oriented to place, oriented to time, oriented to situation, oriented to reality Buck Ledesma " hallucinations none Garettan Bulmaroiuddin " thought content (mental status exam) (E&M) lucid Buck Ledesma " mental status assessment, process able to abstract, goal-directed, logical Garettan Bulmaroiuddin " mental status assessment, sensorium alert, attentive, clear Garettan Bulmaroiuddin " affect (mental status exam) congruent, euthymic, normal intensity, normal range Maryan Samiuddin " mood (mental status exam) pleasant [...] appropriate dress, looks like stated age, neat Maryan Bulmaroiuddin mental status assessment, judgment fair Zishan Samiuddin " insight (mental status exam) fair Zishan Samiuddin " Mental Status Exam: intelligence adequate fund of information, intact memory processes, oriented to person, oriented to place, oriented to time, oriented to situation, oriented to reality Zishan Samiuddin " hallucinations none Zishan Samiuddin " thought content (mental status exam) (E&M) lucid Maryan Bulmaroiuddin " mental status assessment, process able to [...] appropriate dress, looks like stated age, neat Maryan Bulmaroiuddin mood (mental status exam) pleasant Zishan Samiuddin [...] reality Zishan Samiuddin " hallucinations none Zishan Samiudzenon " thought content (mental status exam) (E&M) lucid [facility] " mental status assessment, process able to abstract, goal-directed, logical [facility] " mental status assessment, sensorium alert, attentive, clear [facility] " affect (mental status exam) congruent, euthymic, normal intensity, normal range [facility] " mental status assessment, speech activity normal flow, normal pace, normal pressure, normal rate, normal tone, normal volume, spontaneous, loud [facility] Chamberlainjagdeep " mental status assessment, motor activity normal gait, normal posture [facility], [facility] [facility] " behavior (mental status exam) appropriate, candid, cooperative, good eye contact, polite, responsive [facility] " mental appearance (mental status exam) adequate hygiene, appropriate dress, looks like stated age, neat [facility] Chamberlainjagdeep assessment of judgment and insight E&M intact [...] Jasper Bobo " mental status assessment, judgment beck Bobo " insight (mental status exam) beck Bobo " Mental Status Exam: intelligence adequate [...] alliance party ID *Jasper White [id number]% Other [id number] Sliding Fee - Cat 1 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 [id number] *Jasper White 0-100% Other Sliding Fee - [employer] 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 *Jasper White 0-100% Other [id number] *Jasper White 0-100% Other Sliding Fee - [employer] 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 [id number] *Jasper White 0-100% Other [id number] ADVANCE DIRECTIVES Name Date DISCUSSED - NO [...] - - hypercalcemia - - Est Patient Intermediate Opth - 02056 Est Patient Exp Problem - 88630 Est Patient Detailed - 43868 Est Patient Detailed - 73957 Est Patient Exp Problem - 81757 Est Patient Exp Problem - 22285 Ofc Vst, Est Level III Est Patient Detailed - 38566 First Vx - Ix admin via ID IM or jet injects without counseling by physician Menactra Intramuscular Injectable Vision Vaccines Ordered - Print Consent/Declination Forms Ofc Vst, Est Level IV Xray - Chest - 2 Views - InHouse Handling of specimen for transfer Venipuncture Est Patient Detailed - 31787 Dispensing Visit (UNLIVSTED OPHTHALMOLOGICAL SERVICE/PROCEDURE) INFLUENZA VACCINE QUADRIVALENT 3 YRS PLUS IM Pneumovax Vaccine PPSV23 Admin of Vaccine - Injection - Each Add'l Admin of Vaccine - Injection - 1 Est Patient Detailed - 87276 Progressive lens, per lens Frames, purchases Est Patient Comprehensive Opth - 41315 New Patient Intermediate Opth - 81912 Est Patient Detailed - 18635 Est Patient Detailed - 72979 Est Patient Detailed - 30076 Est Patient Detailed - 71128 Est Patient Exp Problem - 24190 Est Patient Detailed - 52594 Diagnostic evaluation with medical - 88313 INFLUENZA VACCINE QUADRIVALENT 3 YRS PLUS IM Admin of Vaccine - Injection - 1 Est Patient Detailed - 64585 Est Patient Detailed - 24810 Prevnar (PCV13) IM TDAP Admin of Vaccine - Injection - Each Add'l Admin of Vaccine - Injection - 1 Est Patient Well Exam (40 - 64 Yrs) - 50483 [facility] - Psychiatry Diagnostic evaluation (no medical) - 85580 [facility] Assessment - Photograph Retoucher [facility] Xray - Chest - PA & Lat - InHouse [facility] Handling of specimen for transfer Venipuncture Integrated Behavioral [facility] Assessment (IBH) New Patient Well Exam (40 - 64 Yrs) - 79704 Handling of specimen for transfer Venipuncture HISTORY OF PROCEDURES Procedure Date Procedure Name Provider Procedure Notes Status Est Patient Intermediate Opt - 40996 Chriss Martin completed First Vx - Ix admin via ID [...] 60.00) completed Est Patient Comprehensive Opt - 53088 Edgard Martin completed New Patient Intermediate Opt - 28593 Chriss Martin completed Diagnostic evaluation with medical - 31591 Buck Ledesma completed [facility] Maximus Yancey Time spent with patient: 30 completed Diagnostic evaluation (no medical) - 36570 Jasper Bobo completed [facility] Assessment - Photograph Retoucher Jasper Bobo completed [facility] Maximus Yancey Time spent with patient: 30 completed [facility] Maximus Yancey Time spent with patient: 30 completed Venipuncture Sandra Monge completed Venipuncture Sandra Monge completed GOALS No Information Available [facility] No Information Available
--- OUTSIDE RECORDS SUMMARY | 2020-02-03 02:33 | XMS REPORT ---
Author Author Admin, [place] Organization Unknown Address Unknown Phone Unavailable PROBLEMS Condition Status Date Provider Notes SPECIAL SCREENING EXAMINATION OTH SPEC VIRAL DZ active Edgard Martin Encounter for exam of eyes and vision- abnormal findings active Chriss aMrtin Abscess, axilla, right active Nela Shrikanth Hepatitis [...] Provider Location Encounter Diagnosis - Ambulatory Encounter Edgard Song [facility] Vision UNK - Ambulatory Encounter Edgard Martin [facility] Vision UNK - Ambulatory Encounter Edgard Martin [facility] Vision SPECIAL SCREENING EXAMINATION OTH SPEC VIRAL DZ - Ambulatory Encounter Chrissjesus Martin [facility] Vision UNK - Ambulatory Encounter Chrissjesus Martin LM Vision UNK - Ambulatory Encounter Chrissjesus Martin [facility] Vision UNK - Ambulatory Encounter Chrissjesus Barajas [facility] Vision Encounter for exam of eyes and vision- abnormal findings - Ambulatory Encounter Betzaida Dunlap [facility] UNK - Ambulatory Encounter Martha Stallworth [facility] Public Health Services UNK - Ambulatory Encounter Nela Schroeder [facility] Adult Medicine UNK - Ambulatory Encounter Nela Jones [facility] UNK - Ambulatory Encounter Marcelino Ghosh [facility] Behavioral Health UNK - Ambulatory Encounter Nela Lanza [facility], [facility] Adult Medicine UNK - Ambulatory Encounter Nela Schroeder LM Adult Medicine UNK - Ambulatory Encounter Nela Pineda LM Adult Medicine UNK - Ambulatory Encounter Nela Waynekirill Nela Alexandre Lanza [facility], [facility] Adult Medicine UNK - Ambulatory Encounter Marcelino Leoz Callizo LM Behavioral Health UNK - Ambulatory Encounter Marcelino Leoz Callizo Thida Santos [facility] Behavioral Health UNK - Ambulatory Encounter Nela Schroeder [facility] LM Adult Medicine UNK - Ambulatory Encounter Nela Schroeder LM Adult Medicine UNK - Ambulatory Encounter Nela Walker LM Adult Medicine Abscess, axilla, right - Ambulatory Encounter Sandra Lanza [facility]herence, [facility] Adult Medicine UNK - Ambulatory Encounter Dorothy Alberts [facility] Contact Center UNK - Ambulatory Encounter Isi Bliss [facility] Contact Center UNK - Ambulatory Encounter Buck Arringtons Isi Ramsaylermo Leoz Callizo Apurva Sukhi [facility] Contact Center UNK - Ambulatory Encounter Nelairina Schroeder [facility] LM Adult Medicine UNK - Ambulatory Encounter Nelairina Blackh [facility] LM Adult Medicine UNK - Ambulatory Encounter Nela Schroeder [facility] Adult Medicine UNK - Ambulatory Encounter Nela Pineda [facility] Adult Medicine Screening for hypercholesterolemiaImmunization updateFlu shotHx Bronchitis acute with bronchospasmHyponatremiaHyperkalemiaHypercalcemia - Ambulatory Encounter Destinishara Jorje [facility] Adult Medicine UNK - Ambulatory Encounter Rinal Recinos Cliff Jackson [facility] Adult Medicine UNK - Ambulatory Encounter Rinshara Recinos [facility] Adult Medicine UNK - Ambulatory Encounter Mare Carbajal [facility] Adult Medicine UNK - Ambulatory Encounter Dorothy Nash [facility] Contact Center UNK - Ambulatory Encounter Destinishara Recinos [facility] Adult Medicine UNK - Ambulatory Encounter Cliff Arnold LM Adult Medicine UNK - Ambulatory Encounter Nela Schroeder [facility] Adult Medicine UNK - Ambulatory Encounter Nela Schroeder [facility] Adult [facility] UNK - [facility]ulatory Encounter Nela Schroeder [facility] LM Adult Medicine UNK - Ambulatory Encounter Martha Stallworth [facility] Public Health Services UNK - Ambulatory Encounter Nela Schroeder LM Adult Medicine UNK - Ambulatory Encounter Nela Stallworth [facility] Adult Medicine HIV infectionHepatitis A immunityHepatitis B immunity - Ambulatory Encounter Cliff Napier [facility] UNK - Ambulatory Encounter Mare Carbajal [facility] Adult Medicine UNK - Ambulatory Encounter Rinal Recinoscaryl Napier [facility] Adult Medicine UNK - Ambulatory Encounter Cliff Recinos LM Adult Medicine UNK - Ambulatory [...] Medicine UNK - Ambulatory Encounter Sandra Monge [facility] Adult Medicine UNK - Ambulatory Encounter Sandra Monge LM Adult Medicine Osteopenia - Ambulatory Encounter Cliff Jackson LM Adult Medicine UNK - Ambulatory Encounter Rinal Jorje [facility] Adult Medicine UNK - Ambulatory Encounter Rinal Recinoscaryl Jackson LM Adult Medicine UNK - Ambulatory Encounter Cliff Jackson [facility] Adult Medicine UNK - Ambulatory Encounter Cliff Jackson [facility] Adult Medicine UNK - Ambulatory Encounter Sandra Monge [facility] Jeromy Recinos [facility] Adult Medicine UNK - Ambulatory Encounter Sandra Monge [facility] Meghna Arnold [facility] Adult Medicine UNK - Ambulatory Encounter Fax Status [facility] UNK - Ambulatory Encounter Fax Status [facility] UNK - Ambulatory Encounter Fax Status [facility] UNK - Ambulatory Encounter Fax Status [facility] UNK - Ambulatory Encounter Mare Murillo [facility] Adult Medicine UNK - Ambulatory Encounter Jeromy Recinos [facility] Mare Carbajal [facility] Adult Medicine UNK - Ambulatory Encounter Jeromy Recinos [facility] Adult Medicine UNK - Ambulatory Encounter Meghna Nash [facility] Adult Medicine UNK - Ambulatory Encounter Fax Status [facility] UNK - Ambulatory Encounter Fax Status [facility] UNK - Ambulatory Encounter Sandra Monge [facility] Adult Medicine UNK - Ambulatory Encounter Sandra Nash [facility] Adult Medicine UNK - Ambulatory Encounter Lashaun Monge [facility] UNK - Ambulatory Encounter Sandra Monge [facility] Adult Medicine UNK - Ambulatory Encounter Jeromy Recinos [facility] Adult Medicine UNK - Ambulatory Encounter Jeromy Jackson [facility] Adult Medicine UNK - Ambulatory Encounter Cliff Jackson [facility] Adult Medicine UNK - Ambulatory Encounter Meghna Nash [facility] Adult Medicine UNK - Ambulatory Encounter Cliff Jackson [facility] Adult Medicine UNK - Ambulatory Encounter [facility] - [facility] - [facility] Encounter Sandra Monge [facility] Adult Medicine UNK - Ambulatory Encounter Sandra Monge [facility] Adult Medicine UNK - Ambulatory Encounter Sandra Quiles [facility] Adult Medicine Increased transaminase level - Ambulatory Encounter Sandra Monge [facility] Adult Medicine UNK - Ambulatory Encounter Sandra Mcgowan [facility] Adult Medicine UNK - Ambulatory Encounter Sandra Monge [facility] Adult Medicine UNK - Ambulatory Encounter Sandra Monge [facility] Adult Medicine UNK - Ambulatory Encounter Sandra Martinez [facility] Adult Medicine Hx Bronchitis acute with bronchospasmHyponatremiaHyperkalemiaHypercalcemia - Ambulatory Encounter Sandra Lanza [facility]Adherence, [facility] Adult Medicine UNK - Ambulatory Encounter Sandra Lanza [facility]herence, [facility] Adult Medicine UNK - Ambulatory Encounter Cliff Jackson [facility] Adult Medicine UNK - Ambulatory Encounter Sandra Monge [facility] Adult Medicine UNK - Ambulatory Encounter Sandra Monge [facility] Cliff Jackson [facility] Adult Medicine UNK - Ambulatory Encounter Sandra Lanza [facility], [facility] Adult Medicine UNK - Ambulatory Encounter Sandra Lanza [facility]herence, [facility] Adult Medicine UNK - Ambulatory Encounter Boni Cristina [facility] Public Health Services UNK - Ambulatory Encounter Jazmin Perezers [facility] Vision UNK - Ambulatory Encounter Jazmin Bullard [facility] Vision UNK - Ambulatory Encounter Sandra Monge [facility] Adult Medicine UNK - Ambulatory Encounter Sandra Monge [facility] Adult Medicine UNK - Ambulatory Encounter Sandra Monge [facility] Adult Medicine UNK - Ambulatory Encounter Sandra Martinez [facility] Adult Medicine Onychomycosis, toenailsImmunization update - Ambulatory Encounter Jazmin Perezers [facility] Vision UNK - Ambulatory Encounter Edgard Martin [facility] Vision UNK - Ambulatory Encounter Edgard Martin [facility] Vision UNK - Ambulatory Encounter Edgard Hoffmann [facility] Vision SPECIAL SCREENING EXAMINATION OTH SPEC VIRAL DZ - Ambulatory Encounter Chriss Martin [facility] Vision UNK - Ambulatory Encounter Chriss Martin [facility] Vision UNK - Ambulatory Encounter Chriss Martin [facility] Vision UNK - Ambulatory Encounter Chrissjseus Bullard [facility] Vision Myopia - OURegular astigmatism, bilateralPresbyopia - OU - Ambulatory Encounter Sandra Kowalski [facility] Adult Medicine UNK - Ambulatory Encounter Sandra Vargas [facility] Adult Medicine UNK - Ambulatory Encounter Sandra Vargas [facility] Adult Medicine UNK - Ambulatory Encounter Sandra Yancey MedAdherence [facility] Adult Medicine UNK - Ambulatory Encounter Sandra Lanza [facility]herence, [facility] Adult Medicine UNK - Ambulatory Encounter Sandra Lanza MedAdherence, [facility] Adult Medicine UNK - Ambulatory Encounter Sandra Lanza MedAdherence, [facility] Adult Medicine UNK - Ambulatory Encounter Sandra Lanza [facility]herence, [facility] Adult Medicine UNK - Ambulatory Encounter Sandra Lanza [facility]herence, [facility] Adult Medicine UNK - Ambulatory Encounter Sandra Lanza [facility]Adherence, [facility] Adult Medicine UNK - Ambulatory Encounter Khloe Mckeon [facility] UNK - Ambulatory Encounter Khloe Jesus [facility] UNK - Ambulatory Encounter Amaury Nath [facility] Adult Medicine UNK - Ambulatory Encounter Amaury Marquezchanda [facility] Adult Medicine UNK - Ambulatory Encounter Sandra Monge [facility] Adult Medicine UNK - Ambulatory Encounter Sandra Monge [facility] Adult Medicine UNK - Ambulatory Encounter Sandra Hill [facility] Adult Medicine Hx Latent tuberculosis, s/p INH/B6Hx Bronchitis acute with bronchospasm - Ambulatory Encounter Buck Ledesma [facility] Behavioral Health UNK - Ambulatory Encounter Buck Ledesma LinkLogic [facility] Behavioral Health UNK - Ambulatory Encounter Sandra Vargas [facility] Adult Medicine UNK - Ambulatory Encounter Sandra GoldsteinLogkendrick Vargas [facility] Adult Medicine UNK - Ambulatory Encounter Sandra Bush [facility] UNK - Ambulatory Encounter Buck Ledesma [facility] Behavioral Health UNK - Ambulatory Encounter Buck Ledesma [facility] Behavioral Health UNK - Ambulatory Encounter Buck Solares [facility] Contact Center UNK - Ambulatory Encounter Sandra Castro [facility] UNK - Ambulatory Encounter Sandra Monge [facility] Leny Nicol Castro LM Adult Medicine UNK - Ambulatory Encounter Sandra Monge LM Adult Medicine UNK - Ambulatory Encounter Sandra Monge LM Adult Medicine UNK - Ambulatory Encounter Sandra Kessler [facility] Adult Medicine UNK - Ambulatory Encounter Sandra Monge [facility] Adult Medicine UNK - Ambulatory Encounter Sandra Monge [facility] Adult Medicine UNK - Ambulatory Encounter Nancy [facility] UNK - Ambulatory Encounter Khloe Lee [facility] UNK - Ambulatory Encounter Nancy GoldsteinLogic [facility] Adult Medicine UNK - Ambulatory Encounter Buck Burris [facility] Behavioral Health UNK - Ambulatory Encounter Sandra Monge [facility] Adult Medicine UNK - Ambulatory Encounter Sandra Hill [facility] Adult Medicine Hx Latent tuberculosis, s/p INH/[id number] - Ambulatory Encounter Sandra GoldsteinLogic LM Adult Medicine UNK - Ambulatory Encounter Sandra Boss [facility] Adult Medicine UNK - Ambulatory Encounter Buck Clarke [facility] UNK - Ambulatory Encounter Buck Ledesma [facility] Behavioral Health UNK - Ambulatory Encounter Buck Kowalski [facility] Behavioral Health UNK - Ambulatory Encounter Sandra GoldsteinLogkendrick LM Adult Medicine UNK - Ambulatory Encounter Garetteamon Chamberlainkaden [facility] UN[facility] - Ambulatory Encounter Garetteamon Chamberlaincorbinzenon Burris [facility] Behavioral Health UNK - Ambulatory Encounter Lashaun Mckeon [facility] UNK - Ambulatory Encounter Sigridrach [facility] UNK - Ambulatory Encounter Garetteamon Chamberlainkaden [facility] Behavioral Health UNK - Ambulatory Encounter Marymaritza Callie Isifilippo Bliss [facility] Behavioral Health UNK - Ambulatory Encounter Sandra GoldsteinLogic [facility] Adult Medicine UNK - Ambulatory Encounter Sandra Monge [facility] Adult Medicine UNK - Ambulatory Encounter Sandra Chen [facility] Adult Medicine Flu shot - Ambulatory Encounter Sandra Monge [employer] [facility] Adult Medicine UNK - Ambulatory Encounter Sandra Chen [facility] Adult Medicine UNK - Ambulatory Encounter Sandra Monge [facility] Adult Medicine UNK - Ambulatory Encounter Sandra Chen [facility] Adult Medicine BMI < 20 - Ambulatory Encounter Sandra Monge [employer] [facility] Adult Medicine UNK - Ambulatory Encounter Sandra GoldsteinLogic [facility] UNK - Ambulatory Encounter Sandra Monge [facility] Adult Medicine UNK - Ambulatory Encounter Sandra Hill Deepika Jessicarez [facility] Adult Medicine Immunization updateVitamin D deficiency - Ambulatory Encounter Sandra Monge [facility] Services UNK - Ambulatory Encounter Jason Gilliam [facility] UNK - Ambulatory Encounter Sandra Hill [facility] Adult Medicine UNK - Ambulatory Encounter [facility] Care Coordination Desktop [facility] UNK - Ambulatory Encounter Sandra Monge [facility] Adult Medicine COPDHx Latent tuberculosis, s/p INH/B6 - Ambulatory Encounter Sandra GoldsteinHeartland Lasik Centerkendrick [facility] Adult Medicine UNK - Ambulatory Encounter Maximus Yancey [facility] [employer] UNK - Ambulatory Encounter Maximus Yancey [facility] [employer] UNK - Ambulatory Encounter Jasonyoel Gilliam [facility] UNK - Ambulatory Encounter Sandra Kowalski [facility] Adult Medicine UNK - Ambulatory Encounter Maximus Yancey [facility] [employer] UNK - Ambulatory Encounter Sandra Mcgowan [facility] Adult Medicine UNK - Ambulatory Encounter Maximus Yancey [facility] [employer] UNK - Ambulatory Encounter Sandra Monge [facility] Adult Medicine UNK - Ambulatory Encounter Jasper Keller [facility] Behavioral Health DEPRESSIVE DISORDER, OTHER SPECIFIEDALCOHOL USE DISORDER, MODERATETOBACCO USE DISORDER, MODERATE - Ambulatory Encounter Sandra Jamison [facility] Adult Medicine - Ambulatory Encounter Sandra Kowalski [facility] Adult Medicine UNK - Ambulatory Encounter Sandra Day [facility] Adult Medicine Screening for hypercholesterolemia - Ambulatory Encounter Adrian Cristina [facility] Public Health Services UNK - Ambulatory Encounter Sandra Monge [facility] Vision UNK VITAL SIGNS Date Observation Value [...] arm Dorothy Pineda " temperature site oral Dortohy Pineda " height E&M 72 [in_i] Dorothy Pineda " height in centimeters E&M 182.88 cm Dorothy Pineda method used to obtain blood pressure automatic Thida Santos " Blood Pressure Position 01 sitting Thida Santos " blood pressure, site #1 left arm Thida Santso " blood pressure, diastolic 84 mm[Hg] Thida Santos " blood pressure, systolic 133 mm[Hg] Thida Santos " pulse rate E&M 121 /min Thida Santos " weight E&M 140.80 lbs. Thida Santos " weight in kilograms E&M 64 kg Thida Santos " height E&M 72 [in_i] Thida Santos " height in centimeters E&M 182.88 cm Thida Santos blood pressure, site #1 right arm Dylon Belle Aaron " Blood Pressure Position 01 sitting Dylon E Aaron " method used to obtain blood pressure automatic Dylon Belle Aaron " temperature site oral Dylon E Aaron " weight E&M 141 lbs. Dylon Belle Walker " weight in kilograms E&M 64.09 kg Dylon Belle Aaron " height E&M 72 [in_i] Dylon Belle Aaron " height in centimeters E&M 182.88 cm Dylon Walker blood pressure, diastolic 96 mm[Hg] Dorothy Pineda " blood pressure, systolic 125 mm[Hg] Dorothy Pineda " oxygen saturation, oximetry 98 % Dorothy [...] arm Dorothy Edwin " temperature site oral Dorothy Pineda " [...] blood pressure, site #1 right arm Bethanyjaswant Manuel " Blood Pressure Position 01 sitting Cliff [...] Kari Crawford " weight E&M 145.13 lbs. Kari Crawford " weight in kilograms E&M 65.97 kg Kari Crawford " height E&M 72 [in_i] Kari Crawford " height in centimeters E&M 182.88 cm Kari Crawford " method used to obtain blood pressure automatic Kari Crawford " Blood Pressure Position 01 sitting Kari Crawford " blood pressure, site #1 left arm [...] blood pressure, site #1 right arm Bethanyjaswant Manuel " Blood Pressure Position 01 sitting Cliff Jackson " method used to obtain blood pressure automatic Cliff Jackson " temperature site oral Cliff Jackson " height E&M 72 [in_i] Cliff Jackson " height in centimeters E&M 182.88 cm Cliff Jackson blood pressure, diastolic 79 mm[Hg] Angi Martinez " blood pressure, systolic 114 mm[Hg] Angi Juan " oxygen saturation, oximetry 98 % Angi Juan " pulse rate E&M 88 /min Angi Aplington " temperature E&M 98.9 [degF] Angi Juan " weight E&M 145.13 lbs. Angi Aplington " weight in kilograms E&M 65.97 kg Angi Aplington " method used to obtain blood pressure automatic Angi Aplington " Blood Pressure Position 01 sitting Angi Aplington " blood pressure, site #1 left arm Angi Juan " temperature site oral Angi Aplington " height E&M 72 [in_i] Angi Aplington " height in centimeters E&M 182.88 cm Angi Aplington oxygen saturation, oximetry 95 % Angi Juan " blood pressure, diastolic 88 mm[Hg] Angi Juan " blood pressure, systolic 129 mm[Hg] Angi Aplington " pulse rate E&M 96 /min Angi Aplington " temperature E&M 98.4 [degF] Angi Juan " weight E&M 142 lbs. Angi Aplington " weight in kilograms E&M 64.55 kg Angi Juan " method used to obtain blood pressure automatic Angi Aplington " Blood Pressure Position 01 sitting Angi Aplington " blood pressure, site #1 left arm Angi Aplington " temperature site oral Angi Juan " height E&M 72 [in_i] Angi Aplington " height in centimeters E&M 182.88 cm [...] right arm Michelle Hill " temperature site oral Michelle Hill " height E&M 72 [in_i] Michelle Hill " height in centimeters E&M 182.88 cm Michelle Hill oxygen saturation, oximetry 99 % Elizabeth Kessler [...] " Blood Pressure Position 01 sitting Elizabeth Kessler " blood pressure, site #1 right arm Elizabeth Kessler " temperature site tympanic Elizabeth Kessler " height E&M 72 [in_i] Elizabeth Kessler " height in centimeters E&M 182.88 cm [...] used to obtain blood pressure automatic Isi Ruthy " Blood Pressure Position 01 sitting Isi Bliss " blood pressure, site #1 right arm Isichanda Bliss " blood pressure, diastolic 75 mm[Hg] Isi Ruthy " blood pressure, systolic 110 mm[Hg] Isi Ruthy " pulse rate E&M 120 /min Isichanda Bliss " weight E&M 136 lbs. Isi Bliss " weight in kilograms E&M 61.82 kg Isi Bliss " height E&M 72 [in_i] Isi Balboa " height in centimeters E&M 182.88 cm Isi Bliss blood pressure, diastolic 74 mm[Hg] Deepika Chen " blood pressure, systolic 109 mm[Hg] Deepika Chen " pulse rate E&M 80 /min Deepika Chen " oxygen saturation, oximetry 99 % Deepiak Chen " temperature E&M 97.0 [degF] Deepika [...] Chen " temperature E&M 96.2 [degF] Deepika Jessicarez " weight E&M 140.20 lbs. Deepika Jessicarez " weight in kilograms E&M 63.73 kg Deepika Jessicarez " height E&M 72 [in_i] Deepika Jessicarez " height in centimeters E&M 182.88 cm Deepika Jessicarez blood pressure, diastolic 109 mm[Hg] Michelle Hill [...] creatinine, urine, 24 hour 2076 mg/24h [facility] [id number] High " creatinine, random, urine 38.1 mg/dL [...] creatinine, urine, 24 hour 1562 mg/24h [facility] [id number] " creatinine, random, urine 25.4 mg/dL [facility] [...] 13.0-17.7 " erythrocyte (RBC) count 4.15 X10E6/UL LinkLog 4.14-5.80 " leukocyte count, blood 7.2 X10E3/UL [...] " T-helper cells (CD4) count 1157 /UL [facility] [phone] rapid plasma reagin antibody, [...] >3.0 " B-12, serum 471 pg/mL [facility] [phone]/04/21 human leukocyte antigen B57 negative Sandra Monge [...] T-helper cells (CD4) count 1226 /UL [facility] [phone] HISTORY OF IMMUNIZATIONS Date Vaccine Dose Lot Number Status riri klein [facility] [id number] sanofi pasteur 0.5 mL [id number] completed HISTORY OF MEDICATION USE Medication Instructions [...] Observation Value Provider sexual orientation Palacio Jess Barajas time of call 11/15/2019 1:21 PM Martha [...] very busy though". Not homeless. Born in [facility]. City: [place]. State: [place]. Lives w/ mom and step-father in [place], 2 cats. Unemployed since November 2016. Highest education level: bachelor's degree. Not in workforce. Not on disability. 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 Bachelor's degree in [place] Literature at [employer]. Sex at : Male. Sexual orientation: Palacio. [...] very busy though". Not homeless. Born in [facility]. City: [place]. State: [place]. Lives w/ mom and step-father in [place], 2 cats. Unemployed since November 2016. Highest education level: bachelor's degree. Not in workforce. Not on disability. 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 Bachelor's degree in [place] Literature at [employer]. Sex at : Male. Sexual orientation: Palacio. Gender identity: Male. Gender of partner(s): Male. Age of first sexual intercourse: 17. Sexually Active: No. Not sexually active. Dorothy Pineda " social history reviewed E&M reviewed today Dorothy Pineda " assessment of health literacy ([facility] 2014 Standards, 3C10) Adequate Dorothy Pineda " passive cigarette smoke exposure No Dorothy Pineda " smoking status current every day smoker Dorothy Pineda drug use, illicit Previously Marcelino Flores " alcohol use Currently Marcelino Flores " smoking status current every day smoker Marcleino Bruceo " social history E&M Single. Single. Parents when pt was age 16, mother and father both remarried. Relationship with father "I love him but don't like him... we talk on phone 1x a week". Relationship with mother and step-father "perfect and very good". One younger brother, "get along well, he is very busy though". Not homeless. Born in [facility]. City: [place]. State: [place]. Lives w/ mom and step-father in [place], cats. Unemployed since November 2016. Highest education level: bachelor's degree. Not in workforce. Not on disability. 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 Bachelor's degree in [place] [employer] at [employer]. Sex at : Male. Sexual orientation: Palacio. Gender identity: Male. Gender of partner(s): Male. Age of first sexual intercourse: 17. Sexually Active: No. Not sexually active. Marcelino Flores " social history reviewed E&M reviewed today Marcelino Flores " sexual orientation Palacio Dylon Walker " is there any chance that you could be ? No Dylon Walker " assessment of health literacy ([facility] 2014 Standards, 3C10) Adequate Dylon Belle Walker " passive cigarette smoke exposure No Dylon Belle Walker " smoking status current every day smoker Dylon Belle Walker " alcohol use Currently Dylon E [...] very busy though". Not homeless. Born in [facility]. City: [place]. State: [place]. Lives w/ mom and step-father in [place], cats. Unemployed since November 2016. Highest education level: bachelor's degree. Not in workforce. Not on disability. 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 Bachelor's degree in [place] Literature at [employer]. Sex at : Male. Sexual orientation: Palacio. Gender identity: Male. Gender of partner(s): Male. Age of first sexual intercourse: 17. Sexually Active: No. Not sexually active. Dylon Walker " social history reviewed E&M reviewed today Dylon Walker " Exercise Program Referral Mendez Walker " Weight Management Counseling Provided Mendez Walker " Nutrition intervention Mendez Walker time of call 08/02/2019 4:59 PM Apurva Elliottubias drug use, illicit Previously Dorothy Pineda " [...] very busy though". Not homeless. Born in [facility]. City: [place]. State: [place]. Lives w/ mom and step-father in [place], 2 cats. Unemployed since November 2016. Highest education level: bachelor's degree. Not in workforce. Not on disability. 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 Bachelor's degree in [place] Literature at [employer]. Sex at : Male. Sexual orientation: Palacio. Gender identity: Male. Gender of partner(s): Male. Age of first sexual intercourse: 17. Sexually Active: No. Not sexually active. Dorothy Pineda " social history reviewed E&M reviewed today Dorothy Edwin " assessment of health literacy ([facility] 2014 Standards, 3C10) Adequate Dorothy Pineda " passive cigarette smoke exposure No Dorothy Edwin " smoking status current every day smoker Dorothychanda Pineda drug use, illicit Previously Cliff Jackson [...] very busy though". Not homeless. Born in [facility]. City: [place]. State: [place]. Lives w/ mom and step-father in [place], 2 cats. Unemployed since November 2016. Highest education level: bachelor's degree. Not in workforce. Not on disability. 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 Bachelor's degree in [place] Literature at [employer]. Sex at : Male. Sexual orientation: Palacio. Gender identity: Male. Gender of partner(s): Male. Age of first sexual intercourse: 17. Sexually Active: No. Not sexually active. Cliff Jackson " social history reviewed E&M reviewed today Cliff Jackson " is there any chance that you could be ? No Cliff Jackson " assessment of health literacy ([facility] 2014 Standards, 3C10) Adequate Cliff Jackson " [...] very busy though". Not homeless. Born in [facility]. City: [place]. State: [place]. Lives w/ mom and step-father in [place], 2 cats. Unemployed since November 2016. Highest education level: bachelor's degree. Not in workforce. Not on disability. 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 Bachelor's degree in [place] Literature at [employer]. Sex at : Male. Sexual orientation: Palacio. Gender identity: Male. Gender of partner(s): Male. Age of first sexual intercourse: 17. Sexually Active: No. Not sexually active. Cliff Jackson " social history reviewed E&M reviewed today Cliff Jackson " is there any chance that you could be ? No Cliff Jackson " assessment of health literacy ([facility] 2014 Standards, 3C10) Adequate Cliff Jackson [...] very busy though". Not homeless. Born in [facility]. City: [place]. State: [place]. Lives w/ mom and step-father in [place], 2 cats. Unemployed since November 2016. Highest education level: bachelor's degree. Not in workforce. Not on disability. 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 Bachelor's degree in [place] Literature at [employer]. Sex at : Male. Sexual orientation: Palacio. Gender identity: Male. Gender of partner(s): Male. Age of first sexual intercourse: 17. Sexually Active: No. Not sexually active. Angi Martinez " social history reviewed E&M reviewed today Angi Martinez " sexual orientation Palacio Angi Martinez " is there any chance that you could be ? No Angi Martinez " assessment of health literacy ([facility] 2014 Standards, 3C10) Adequate Angi Juan " passive cigarette smoke exposure Yes Angi Martinez " smoking status current every day smoker Anginava Martinez time of call 12/02/2018 10:35 AM Adrian Jonnie Exercise Program Referral T Sandra Monge " Weight Management Counseling Provided T Sandra Monge " Nutrition intervention T Sandra Monge " smoking, advice to quit Yes Sandra Monge " drug use, illicit Previously Angi Martinez " alcohol use Currently Angi Aplington " social history E&M Single. Single. Parents when pt was age 16, mother and father both remarried. Relationship with father "I love him but don't like him... we talk on phone 1x a week". Relationship with mother and step-father "perfect and very good". One younger brother, "get along well, he is very busy though". Not homeless. Born in [facility]. City: [place]. State: [place]. Lives w/ mom and step-father in [place], 2 cats. Unemployed since November 2016. Highest education level: bachelor's degree. Not in workforce. Not on disability. 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 Bachelor's degree in [place] Literature at [employer]. Sex at : Male. Sexual orientation: Palacio. Gender identity: Male. Gender of partner(s): Male. Age of first sexual intercourse: 17. Sexually Active: No. Not sexually active. Angi Martinez " social history reviewed E&M reviewed today Angi Martinez " sexual orientation Palacio Angi Martinez " is there any chance that you could be ? No Angi Hessrod " assessment of health literacy ([facility] 2014 Standards, 3C10) Adequate Angi Hessrod " passive cigarette smoke exposure Yes Angi Martinez " smoking status current every day smoker Angi Juan sexual orientation Palacio Alexandra Hoffmann sexual orientation Palacio Jazmin Aleah Exercise Program Referral T Sandra Monge " [...] very busy though". Not homeless. Born in [facility]. City: [place]. State: [place]. Lives w/ mom and step-father in [place], 2 cats. Unemployed since November 2016. Highest education level: bachelor's degree. Not in workforce. Not on disability. 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 Bachelor's degree in [place] Literature at [employer]. Sex at : Male. Sexual orientation: Palacio. [...] " assessment of health literacy ([facility] 2014 Standards, 3C10) Adequate Michelle Hill " passive cigarette smoke exposure Yes Michelleadam Hill " smoking status current every [...] " assessment of health literacy ([facility] 2014 Standards, 3C10) Adequate Elizabeth Kessler " Exercise Program Referral T Elizabeth Kessler " Weight Management Counseling Provided T Elizabeth Kessler " Nutrition intervention Mendez Kessler smoking status current every day smoker Garetteamon Callie Exercise Program Referral T Sandra Monge " [...] Michelle Sergio " assessment of health literacy ([facility] 2014 Standards, 3C10) Adequate Michelle Sergio smoking [...] very busy though". Not homeless. Born in [facility]. City: [place]. State: [place]. Lives w/ mom and step-father in [place], [facility]. Unemployed since November 2016. Highest education level: bachelor's degree. Not in workforce. Not on disability. 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 Bachelor's degree in [place] Literature at [employer]. Sex at : Male. Sexual orientation: Palacio. [...] " assessment of health literacy ([facility] 2014 Standards, 3C10) Adequate Deepika Chen Exercise [...] very busy though". Not homeless. Born in [facility]. City: [place]. State: [place]. Lives w/ mom and step-father in [place], 2 cats. Unemployed since November 2016. Highest education level: bachelor's degree. Not in workforce. Not on disability. 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 Bachelor's degree in [place] Literature at [employer]. Sex at : Male. Sexual orientation: Palacio. [...] " assessment of health literacy ([facility] 2014 Standards, 3C10) Adequate Deepika Chen Exercise [...] though". Not homeless. Born [place] City: [place]. State: [place]. Lives w/ mom and step-father in [place], cats. Unemployed since November 2016. Highest education level: bachelor's degree. Not in workforce. Not on disability. 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 Bachelor's degree in [place] Literature at [employer]. Sex at : Male. Sexual orientation: Palacio. [...] " assessment of health literacy ([facility] 2014 Standards, 3C10) Adequate Deepika Chen social [...] very busy though". Not homeless. Born in [facility]. City: [place]. [place]: [place]. Lives w/ mom and step-father in [place], cats. Unemployed since November 2016. Highest education level: bachelor's degree. Not in workforce. Not on disability. 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 Bachelor's degree in [place] Literature at [employer]. Sex at : Male. Sexual orientation: Palacio. [...] assessment Lives w/ mom and step-father in [place], 2 cats. Jasper Bobo " social history reviewed E&M reviewed today Sandra Monge " social history E&M Single. Spouse/Partner/Significant Other: n/a. Family is aware and supportive. Not homeless. Born in [facility]. City: [place]. State: [place]. Lives in [facility] and stepdad in [facility]. Not employed. Highest education level: bachelor's [...] Monge " home/family situation, assessment Lives in [facility] [place] and stepdad in [facility]. Sandra Monge " family support Family is aware and supportive. Sandra Monge " smoking, advice to quit Yes Sandra Monge " assessment of health literacy ([facility] 2014 Standards, 3C10) Adequate Sandra Monge [...] STATUS Date Observation Value Provider assessment of mood and affect E&M good eye contact, normal affect Edgard Martin " mental status examination: orientation E&M alert and oriented to person, place, and time Edgard Croninyer mental status assessment, judgment fair Marcelino Leoz [...] oriented to time, place, and person Nela Santiikanth " assessment of mood and affect E&M [...] time, oriented to situation, oriented to reality Marcelinojoaqiun Bruceo " hallucinations none Marcelino Leolga Farahizo " thought content (mental status exam) (E&M) lucid Marcelino Farahizo " mental status assessment, process able to abstract, goal-directed, logical Marcelinojoaquin Farahizo " mental status assessment, sensorium alert, attentive, clear Marcelino Leolga Callizo " affect (mental status exam) congruent, euthymic, normal intensity, normal range, reactive Marcelino Leoz Callizo " mood (mental status exam) pleasant Marcelino Leoz Callizo " mental status assessment, speech activity normal flow, normal pace, normal pressure, normal rate, normal tone, normal volume, spontaneous, loud Marcelinojoaquin Farahizo " mental status assessment, motor activity normal gait, normal posture Marcelinojoaquin Bruceo " behavior (mental status exam) appropriate, candid, cooperative, good eye contact, polite, responsive Marcelino Jefferson Callizo " mental appearance (mental status exam) adequate hygiene, appropriate dress, looks like stated age, neat, smells of heavy cigarette smoke/tobacco Marcelino Farahizo assessment of judgment and insight E&M intact [...] Disorder Questionnaire - Question 2 0 Angi Aplington " Generalized Anxiety Disorder Questionnaire - Question 1 0 Angi Aplington assessment of mood and affect E&M good eye contact, normal affect Edgard S Martin " mental status examination: orientation E&M alert and oriented to person, place, and time Edgard Song Martin assessment of judgment and insight E&M [...] Elizabeth Kessler mental status assessment, judgment fair Garettreinamaritza Ledesma " insight (mental status exam) fair Garettmaritza Ledesma " Mental Status Exam: intelligence adequate fund of information, intact memory processes, oriented to person, oriented to place, oriented to time, oriented to situation, oriented to reality Garettmaritza Ledesma " hallucinations none [facility] " thought content (mental status exam) (E&M) lucid Garettmaritza Ledesma " mental status assessment, process able to abstract, goal-directed, logical Garettmaritza Ledesma " mental status assessment, sensorium alert, attentive, clear Garettmaritza Ledesma " affect (mental status exam) congruent, euthymic, normal intensity, normal range Garettmaritza Ledesma " mood (mental status exam) pleasant Garettmaritza Ledesma " mental status assessment, speech activity normal flow, normal pace, normal pressure, normal rate, normal tone, normal volume, spontaneous, loud Garettamritza Ledesma " mental status assessment, motor activity normal gait, normal posture Garettmaritza [facility] " behavior (mental status exam) appropriate, candid, cooperative, good eye contact, polite, responsive Garettmaritza Ledesma " mental appearance (mental status exam) adequate hygiene, appropriate dress, looks like stated age, neat Garettmaritza Ledesma assessment of judgment and insight E&M [...] looks like stated age, neat Garetteamon Chamberlainkaden mood (mental status exam) pleasant Buck Ledesma " anxiety worry a lot, sleep disturbance Garettmraitza Ledesma " mental status assessment, judgment fair Garettmaritza Ledesma " insight (mental status exam) fair Garettmaritza Ledesma " Mental Status Exam: intelligence adequate fund of information, intact memory processes, oriented to person, oriented to place, oriented to time, oriented to situation, oriented to reality Garettmaritza Ledesma " hallucinations none Garettmaritza Ledesma " thought content (mental status exam) (E&M) lucid Buck Ledesma " mental status assessment, process able to abstract, goal-directed, logical Garettmaritza Ledesma " mental status assessment, sensorium alert, attentive, clear Garettmaritza Ledesma " affect (mental status exam) congruent, euthymic, normal intensity, normal range Garettmaritza Ledesma " mental status assessment, speech activity [...] Covered democrat ID *Jasper White 0-100% Other [id number] Sliding Fee - Cat 1 [id number] [id number] *Jasper White 0-100% Other Sliding Fee - Cat 1 [employer] insurance company *Jasper White 0-100% Other [id number] *Jasper White 0-100% Other Sliding Fee - Cat 1 [employer] insurance [employer] [id number] *Jasper White 0-100% Other [id number] ADVANCE DIRECTIVES Name Date DISCUSSED - NO [...] - - hypercalcemia - - Est Patient Comprehensive Opth - 46753 Est Patient Intermediate Opth - 26425 Est Patient Exp Problem - 45763 Est Patient Detailed - 88672 Est Patient Detailed - 63046 Est Patient Exp Problem - 68729 Est Patient Exp Problem - 62973 Ofc Vst, Est Level III Est Patient Detailed - 36762 First Vx - Ix admin via ID IM or jet injects without counseling by physician Menactra Intramuscular Injectable Vision Vaccines Ordered - Print Consent/Declination Forms Ofc Vst, Est Level IV Xray - Chest - 2 Views - InHouse Handling of specimen for transfer Venipuncture Est Patient Detailed - 86600 Dispensing Visit (UNLIVSTED OPHTHALMOLOGICAL SERVICE/PROCEDURE) INFLUENZA VACCINE QUADRIVALENT 3 YRS PLUS IM Pneumovax Vaccine PPSV23 Admin of Vaccine - Injection - Each Add'l Admin of Vaccine - Injection - 1 Est Patient Detailed - 49222 Progressive lens, per lens Frames, purchases Est Patient Comprehensive Opth - 91321 New Patient Intermediate Opth - 17002 Est Patient Detailed - 08246 Est Patient Detailed - 36611 Est Patient Detailed - 58386 Est Patient Detailed - 86855 Est Patient Exp Problem - 90147 Est Patient Detailed - 01168 Diagnostic evaluation with medical - 99342 INFLUENZA VACCINE QUADRIVALENT 3 YRS PLUS IM Admin of Vaccine - Injection - 1 Est Patient Detailed - 50515 Est Patient Detailed - 48688 Prevnar (PCV13) IM TDAP Admin of Vaccine - Injection - Each Add'l Admin of Vaccine - Injection - 1 Est Patient Well Exam (40 - 64 Yrs) - 01505 Primary Care Service [facility] - Psychiatry Diagnostic evaluation (no medical) - 05139 [facility] 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 Primary Care Service Link[facility] Xray - Chest - PA & Lat - InHouse Primary Care Service [facility] Handling of specimen for transfer Venipuncture Integrated Behavioral [facility] Assessment (IBH) New Patient Well Exam (40 - 64 Yrs) - 72552 Handling of specimen for transfer Venipuncture HISTORY OF PROCEDURES Procedure Date Procedure Name Provider Procedure Notes Status Est Patient Comprehensive Opt - 73428 Edgard Martin completed Est Patient Intermediate Opt - 87809 Chriss Martin completed First Vx - Ix [...] 60.00) completed Est Patient Comprehensive Opt - 45847 Edgard Martin completed New Patient Intermediate Opt - 99488 Chriss Martin completed Diagnostic evaluation with medical - 81163 Buck Ledesma completed [facility] Maximus Yancey Time spent with patient: 30 completed Diagnostic evaluation (no medical) - 58850 Jasper Bobo completed [facility] 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 Jasper Bobo completed Primary Care Service [facility] Maximus Yancey Time spent with patient: 30 completed Primary Care Service Link[facility] Maximus Yancey Time spent with patient: 30 completed Venipuncture Sandra Monge completed Venipuncture Sandra Mnoge completed [facility] No Information Available [facility] No Information Available
--- OUTSIDE RECORDS SUMMARY | 2020-02-03 02:34 | XMS REPORT ---
Author Author Admin, [place] Organization Unknown Address Unknown Phone Unavailable PROBLEMS [...] Encounter Diagnosis - Ambulatory Encounter Edgard Song [facility] Vision UNK - Ambulatory Encounter Edgard Martin [facility] Vision UNK - Ambulatory Encounter Edgard Martin [facility] Vision SPECIAL SCREENING EXAMINATION OTH SPEC VIRAL DZ - Ambulatory Encounter Chrissjesus Martin [facility] Vision UNK - Ambulatory Encounter Chrissjesus Martin LM Vision UNK - Ambulatory Encounter Chrissjesus Martin [facility] Vision UNK - Ambulatory Encounter Chrissjesus Barajas [facility] Vision Encounter for exam of eyes and vision- abnormal findings - Ambulatory Encounter Betzaida Dunlap [facility] Services UNK - Ambulatory Encounter Martha Stallworth [facility] Public Health Services UNK - Ambulatory Encounter Nela Schroeder [facility] Adult Medicine UNK - Ambulatory Encounter Nela Jones [facility] Services UNK - Ambulatory Encounter Marcelino Ghosh [facility] Behavioral Health UNK - Ambulatory Encounter Nela Lanza MedAdherence, [facility] Adult Medicine UNK - Ambulatory Encounter Nela Schroeder LM Adult Medicine UNK - Ambulatory Encounter Nela Pineda LM Adult Medicine UNK - Ambulatory Encounter Nela Waynekirill Nela Alexandre Lanza [facility]herence, [facility] Adult Medicine UNK - Ambulatory Encounter Marcelino Leoz Callizo LM Behavioral Health UNK - Ambulatory Encounter Marcelino Leoz Callizo Thida Santos [facility] Behavioral Health UNK - Ambulatory Encounter Nela Schroeder [facility] LM Adult Medicine UNK - Ambulatory Encounter Nela Schroeder LM Adult Medicine UNK - Ambulatory Encounter Nela Walker LM Adult Medicine Abscess, axilla, right - Ambulatory Encounter Sandra Lanza MedAdherence, [facility] Adult Medicine UNK - Ambulatory Encounter Dorothy Alberts [facility] Services Contact Center UNK - Ambulatory Encounter Isi Bliss [facility] Contact Center UNK - Ambulatory Encounter Buck Arringtons Isi Ramsaylermo Leoz Callizo Apurva Sukhi [facility] Services Contact Center [...] - Ambulatory Encounter Rinal Recinos Cliff Jackson [facility] Adult Medicine UNK - Ambulatory Encounter Rinshara Recinos [facility] Adult Medicine UNK - Ambulatory Encounter Mare Carbajal LM Adult Medicine UNK - Ambulatory Encounter Dorothy Nash [facility] Contact Center UNK - Ambulatory Encounter Destinishara Recinos [facility] Adult Medicine UNK - Ambulatory Encounter Cliff Arnold LM Adult Medicine UNK - Ambulatory Encounter Nela Schroeder [facility] Adult Medicine UNK - Ambulatory Encounter Nela Schroeder [facility] Adult Medicine UNK - [facility] - Ambulatory Encounter Nela Schroeder [facility] LM Adult Medicine UNK - Ambulatory Encounter Martha Stallworth [facility] Public Health Services UNK - Ambulatory Encounter Nela Schroeder LM Adult Medicine UNK - Ambulatory Encounter Nela Stallworth [facility] Adult Medicine HIV infectionHepatitis A immunityHepatitis B immunity - Ambulatory Encounter Cliff Napier [facility] UNK - Ambulatory Encounter Mare Carbajal [facility] Adult Medicine UNK - Ambulatory Encounter Rinal Recinoscaryl Napier [facility] Adult Medicine UNK - Ambulatory Encounter Cliff [...] Medicine UNK - Ambulatory Encounter Cliff Jackson [facility] Adult Medicine UNK - Ambulatory Encounter Cliff Jackson [facility] Adult Medicine UNK - Ambulatory Encounter Sandra Monge [facility] Jeromy Recinos [facility] Adult Medicine UNK - Ambulatory Encounter Sandra Monge [facility] Meghna Arnold [facility] Adult Medicine UNK - Ambulatory Encounter Fax Status [facility] Services UNK - Ambulatory Encounter Fax Status [facility] UNK - Ambulatory Encounter Fax Status [facility] Services UNK - Ambulatory Encounter Fax Status [facility] Services UNK - Ambulatory Encounter Mare Murillo [facility] Adult Medicine UNK - Ambulatory Encounter Jeromy Recinos [facility] Mare Carbajal [facility] Adult Medicine UNK - Ambulatory Encounter Jeromy Recinos [employer]ic [facility] Adult Medicine UNK - Ambulatory Encounter Meghna Nash [facility] Adult Medicine UNK - Ambulatory Encounter Fax Status [facility] Services UNK - Ambulatory Encounter Fax Status [facility] Services UNK - Ambulatory Encounter Sandra Monge [facility] Adult Medicine UNK - Ambulatory Encounter Sandra Nash [facility] Adult Medicine UNK - Ambulatory Encounter Lashaun Monge [facility] Services UNK - Ambulatory Encounter Sandra Monge [employer]ic [facility] Adult Medicine UNK - Ambulatory Encounter Jeromy Recinos [facility] Adult Medicine UNK - Ambulatory Encounter Jeromy Jackson [facility] Adult Medicine UNK - Ambulatory Encounter Cliff Jackson [facility] Adult Medicine UNK - Ambulatory Encounter Meghna Nash [facility] Adult Medicine UNK - Ambulatory Encounter Cliff Jackson [facility] Adult Medicine UNK - Ambulatory Encounter [facility] - [facility]ulatory Encounter Sandra Monge [facility]Logic [facility] Adult Medicine UNK - Ambulatory Encounter Sandra Monge [facility] Adult Medicine UNK - Ambulatory Encounter Sandra Quiles [facility] Adult Medicine Increased transaminase level - Ambulatory Encounter Sandra Monge LinkLogic [facility] Adult Medicine UNK - Ambulatory Encounter Sandra Mcgowan [facility] Adult Medicine UNK - Ambulatory Encounter Sandra Monge [employer] Adult Medicine UNK - Ambulatory Encounter Sandra Monge [facility] Adult Medicine UNK - Ambulatory Encounter Sandra Martinez [facility] Adult Medicine Hx Bronchitis acute with bronchospasmHyponatremiaHyperkalemiaHypercalcemia - Ambulatory Encounter Sandra Lanza MedAdherence, [facility] Adult Medicine UNK - Ambulatory Encounter Sandra Lanza MedAdherence, [facility] Adult Medicine UNK - Ambulatory Encounter Cliff Jackson [facility] Adult Medicine UNK - Ambulatory Encounter Sandra Monge [facility] Adult Medicine UNK - Ambulatory Encounter Sandra Monge [facility] Cliff Jackson [facility] Adult Medicine UNK - Ambulatory Encounter Sandra Lanza MedAdherence, [facility] Adult Medicine UNK - Ambulatory Encounter Sandra Lanza MedAdherence, [facility] Adult Medicine UNK - Ambulatory Encounter Boni Cristina [facility] Public Health Services UNK - Ambulatory Encounter Jazmin Perezers [facility] Vision UNK - Ambulatory Encounter Jazmin Bullard [facility] Vision UNK - Ambulatory Encounter Sandra Monge [employer]ic [facility] Adult Medicine UNK - Ambulatory Encounter Sandra Monge LinkLogic [facility] Adult Medicine UNK - Ambulatory Encounter Sandra Monge [facility] Adult Medicine UNK - Ambulatory Encounter Sandra Martinez [facility] Adult Medicine Onychomycosis, toenailsImmunization update - Ambulatory Encounter Jazmin Perezers [facility] Vision UNK - Ambulatory Encounter Edgard Martin [facility] Vision UNK - Ambulatory Encounter Edgard Martin [facility] Vision UNK - Ambulatory Encounter Edgard Hoffmann [facility] Vision SPECIAL SCREENING EXAMINATION OTH SPEC VIRAL DZ - Ambulatory Encounter Chriss Martin [facility] Vision UNK - Ambulatory Encounter Chriss Martin [facility] Vision UNK - Ambulatory Encounter Chriss Martin [facility] Vision UNK - Ambulatory Encounter Chrissjesus Bullard [facility] Vision Myopia - OURegular astigmatism, bilateralPresbyopia - OU - Ambulatory Encounter Sandra Kowalski [facility] Adult Medicine UNK - Ambulatory Encounter Sandra Vargas [facility] Adult Medicine UNK - Ambulatory Encounter Sandra Vargas [facility] Adult Medicine UNK - Ambulatory Encounter Sandra Yancey MedAdherence [facility] Adult Medicine UNK - Ambulatory Encounter Sandra Lanza MedAdherence, [facility] Adult Medicine UNK - Ambulatory Encounter Sandra Lanza MedAdherence, [facility] Adult Medicine UNK - Ambulatory Encounter Sandra Lanza MedAdherence, [facility] Adult Medicine UNK - Ambulatory Encounter Sandra Lanza MedAdherence, [facility] Adult Medicine UNK - Ambulatory Encounter Sandra Lanza MedAdherence, [facility] Adult Medicine UNK - Ambulatory Encounter Sandra Lanza MedAdherence, [facility] Adult Medicine UNK - Ambulatory Encounter Khloe Mckeon [facility] Services UNK - Ambulatory Encounter Khloe Jesus [facility] UNK - Ambulatory Encounter Amaury Nath [facility] Adult Medicine UNK - Ambulatory Encounter Amaury Marquezchanda [facility] Adult Medicine UNK - Ambulatory Encounter Sandra Monge [facility] Adult Medicine UNK - Ambulatory Encounter Sandra Monge [facility] Adult Medicine UNK - Ambulatory Encounter Sandra Hill [facility] Adult Medicine Hx Latent tuberculosis, s/p INH/B6Hx Bronchitis acute with bronchospasm - Ambulatory Encounter Buck Ledesma [facility] Behavioral Health UNK - Ambulatory Encounter Buck Ledesma LinkLogic [facility] Behavioral Health UNK - Ambulatory Encounter Sandra Vargas [facility] Adult Medicine UNK - Ambulatory Encounter Sandra GoldsteinLogkendrick Vargas [facility] Adult Medicine UNK - Ambulatory Encounter Sandra Bush [facility] Services UNK - Ambulatory Encounter Buck Ledesma [facility] Behavioral Health UNK - Ambulatory Encounter Buck Ledesma LinkLogic [facility] Behavioral Health UNK - Ambulatory Encounter Buck Solares [facility] Contact Center UNK - Ambulatory Encounter Sandra Castro [facility] UNK - Ambulatory Encounter Sandra Monge [facility] Leny Nicol Castro LM Adult Medicine UNK - Ambulatory Encounter Sandra Monge LM Adult Medicine UNK - Ambulatory Encounter Sandra Monge LM Adult Medicine UNK - Ambulatory Encounter Sandra Kessler [facility] Adult Medicine UNK - Ambulatory Encounter Sandra Monge [facility] Adult Medicine UNK - Ambulatory Encounter Sandra Monge LinkLogic [facility] Adult Medicine UNK - Ambulatory Encounter Nancy [facility] UNK - Ambulatory Encounter Khloe Lee [facility] UNK - Ambulatory Encounter Nancy GoldsteinLogic [facility] Adult Medicine UNK - Ambulatory Encounter uBck Burris [facility] Behavioral Health UNK - Ambulatory Encounter Sandra Monge [facility] Adult Medicine UNK - Ambulatory Encounter Sandra Hill [facility] Adult Medicine Hx Latent tuberculosis, s/p [id number] - Ambulatory Encounter Sandra GoldsteinLogic LM Adult Medicine UNK - Ambulatory Encounter Sandra Boss [facility] Adult Medicine UNK - Ambulatory Encounter Buck Clarke [facility] Services UNK - Ambulatory Encounter Buck Ledesma [facility] Behavioral Health UNK - Ambulatory Encounter Buck Kowalski [facility] Behavioral Health UNK - Ambulatory Encounter Sandra GoldsteinLogkendrick LM Adult Medicine UNK - Ambulatory Encounter Garetteamon Chamberlainkaden [facility] UNK - Ambulatory Encounter Garetteamon Chamberlaincorbinzenon Burris [facility] Behavioral Health UNK - Ambulatory Encounter Lashaun Mckeon [facility] UNK - Ambulatory Encounter Sigridrach [facility] UNK - Ambulatory Encounter Garetteamon Chamberlainkaden [facility] Behavioral Health UNK - Ambulatory Encounter Maryamritza Callie Isifilippo Bliss [facility] Behavioral Health UNK - Ambulatory Encounter Sandra GoldsteinLogic [facility] Adult Medicine UNK - Ambulatory Encounter Sandra Monge [facility] Adult Medicine UNK - Ambulatory Encounter Sandra Chen [facility] Adult Medicine Flu shot - Ambulatory Encounter Sandra Monge LinkLogic [facility] Adult Medicine UNK - Ambulatory Encounter Sandra Chen [facility] Adult Medicine UNK - Ambulatory Encounter Sandra Monge [facility] Adult Medicine UNK - Ambulatory Encounter Sandra Chen [facility] Adult Medicine BMI < 20 - Ambulatory Encounter Sandra Monge LinkLogic [facility] Adult Medicine UNK - Ambulatory Encounter Sandra GoldsteinLogic [facility] Services UNK - Ambulatory Encounter Sandra Monge [facility] Adult Medicine UNK - Ambulatory Encounter Sandra Hill Deepika Jessicarez [facility] Adult Medicine Immunization updateVitamin D deficiency - Ambulatory Encounter Sandra Monge [facility] Services UNK - Ambulatory Encounter Jason Gilliam [facility] UNK - Ambulatory Encounter Sandra Hill [facility] Adult Medicine UNK - Ambulatory Encounter [facility] Care Coordination Desktop [facility] UNK - Ambulatory Encounter Sandra Monge [facility] Adult Medicine COPDHx Latent tuberculosis, s/p INH/B6 - Ambulatory Encounter [facility] Adult Medicine UNK - Ambulatory Encounter Maximus Yancey [facility] Insurance Licensing Supervisor UNK - Ambulatory Encounter Maximus Yancey [facility] Insurance Licensing Supervisor UNK - Ambulatory Encounter Jasonyoel Gilliam [place] [facility] UNK - Ambulatory Encounter Sandra Kowalski [facility] Adult Medicine UNK - Ambulatory Encounter Maximus Yancey [facility] Insurance Licensing Supervisor UNK - Ambulatory Encounter Sandra Mcgowan [facility] Adult Medicine UNK - Ambulatory Encounter Maximus Yancey [facility] Insurance Licensing Supervisor UNK - Ambulatory Encounter Sandra Monge [facility] Adult Medicine UNK - Ambulatory Encounter Jasper Keller [facility] Behavioral Health DEPRESSIVE DISORDER, OTHER SPECIFIEDALCOHOL USE DISORDER, MODERATETOBACCO USE DISORDER, MODERATE - Ambulatory Encounter Sandra Jamison [facility] Adult Medicine - Ambulatory Encounter Sandra Kowalski [facility] Adult Medicine UNK - Ambulatory Encounter Sandra Day [facility] Adult Medicine Screening for hypercholesterolemia - Ambulatory Encounter Adrian Cristina [facility] Public Health Services UNK - Ambulatory Encounter Sandra Monge [facility] Vision UNK VITAL SIGNS Date Observation Value [...] " pulse rate E&M 88 /min Angi Zeeland " temperature E&M 98.9 [degF] Angi Juan " weight E&M 145.13 lbs. Angi Zeeland " weight in kilograms E&M 65.97 kg Angi Zeeland " method used to obtain blood pressure automatic Angi Zeeland " Blood Pressure Position 01 sitting Angi Zeeland " blood pressure, site #1 left arm Angi Juan " temperature site oral Angi Zeeland " height E&M 72 [in_i] Angi Zeeland " height in centimeters E&M 182.88 cm Angi Zeeland oxygen saturation, oximetry 95 % Angi Juan " blood pressure, diastolic 88 mm[Hg] Angi Juan " blood pressure, systolic 129 mm[Hg] Angi Zeeland " pulse rate E&M 96 /min Angi Zeeland " temperature E&M 98.4 [degF] Angi Juan " weight E&M 142 lbs. Angi Zeeland " weight in kilograms E&M 64.55 kg Angi Juan " method used to obtain blood pressure automatic Angi Zeeland " Blood Pressure Position 01 sitting Angi Zeeland " blood pressure, site #1 left arm Angi Zeeland " temperature site oral Angi Juan " height E&M 72 [in_i] Angi Zeeland " height in centimeters E&M 182.88 cm [...] weight in kilograms E&M 59.09 kg Angi Burirs " height E&M 72 [in_i] Angi Burris [...] creatinine, urine, 24 hour 2076 mg/24h [facility] [id number] High " creatinine, random, urine 38.1 mg/dL [...] creatinine, urine, 24 hour 1562 mg/24h [facility] [id number] " creatinine, random, urine 25.4 mg/dL [facility] [...] >3.0 " B-12, serum 471 pg/mL [facility] [id number] 5095/04/21 human leukocyte antigen B57 negative Sandra Monge [...] T-helper cells (CD4) count 1226 /UL [facility] [id number] HISTORY OF IMMUNIZATIONS Date Vaccine Dose Lot Number Status riri klein [facility] [address]-61 sanofi pasteur 0.5 mL [id number] completed HISTORY OF MEDICATION USE Medication Instructions [...] very busy though". Not homeless. Born in [facility]. City: [place]. State: [place]. Lives w/ mom and step-father in [place], 2 cats. Unemployed since November 2016. Highest education level: bachelor's degree. Not in workforce. Not on disability. 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 Bachelor's degree in [place] [employer] at [employer]. Sex at : Male. Sexual orientation: [...] very busy though". Not homeless. Born in [facility]. City: [place]. State: [place]. Lives w/ mom and step-father in [place], 2 cats. Unemployed since November 2016. Highest education level: bachelor's degree. Not in workforce. Not on disability. 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 Bachelor's degree in [place] [employer] at [employer]. Sex at : Male. Sexual orientation: Palacio. Gender identity: Male. Gender of partner(s): Male. Age of first sexual intercourse: 17. Sexually Active: No. Not sexually active. Dorothy Pineda " social history reviewed E&M reviewed today Dorothy Pineda " assessment of health literacy (MDQA [facility] 2014 Standards, 3C10) Adequate Dorothy Pineda " [...] very busy though". Not homeless. Born in [facility]. City: [place]. State: [place]. Lives w/ mom and step-father in [place], cats. Unemployed since November 2016. Highest education level: bachelor's degree. Not in workforce. Not on disability. 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 Bachelor's degree in [place] [employer] at [employer]. Sex at : Male. Sexual orientation: Palacio. Gender identity: Male. Gender of partner(s): Male. Age of first sexual intercourse: 17. Sexually Active: No. Not sexually active. Marcelino Flores " social history reviewed E&M reviewed today Marcelino Flores " sexual orientation Palacio Dylon Walker " is there any chance that you could be ? No Dylon Walker " assessment of health literacy ([facility] 2014 Standards, 3C10) Adequate Dylon Belle Walker [...] very busy though". Not homeless. Born in [facility]. City: [place]. State: [place]. Lives w/ mom and step-father in [place], cats. Unemployed since November 2016. Highest education level: bachelor's degree. Not in workforce. Not on disability. 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 Bachelor's degree in [place] [employer] at [employer]. Sex at : Male. Sexual orientation: [...] very busy though". Not homeless. Born in [facility]. City: [place]. State: [place]. Lives w/ mom and step-father in [place], 2 cats. Unemployed since November 2016. Highest education level: bachelor's degree. Not in workforce. Not on disability. 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 Bachelor's degree in [place] [employer] at [employer]. Sex at : Male. Sexual orientation: Palacio. Gender identity: Male. Gender of partner(s): Male. Age of first sexual intercourse: 17. Sexually Active: No. Not sexually active. Dorothy Pineda " social history reviewed E&M reviewed today Dorothy Edwin " assessment of health literacy ([facility] 2014 Standards, 3C10) Adequate Dorothy [...] very busy though". Not homeless. Born in [facility]. City: [place]. State: [place]. Lives w/ mom and step-father in [place], 2 cats. Unemployed since November 2016. Highest education level: bachelor's degree. Not in workforce. Not on disability. 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 Bachelor's degree in [place] [employer] at [employer]. Sex at : Male. Sexual orientation: Palacio. Gender identity: Male. Gender of partner(s): Male. Age of first sexual intercourse: 17. Sexually Active: No. Not sexually active. Cliff Jackson " social history reviewed E&M reviewed today Cliff Jackson " is there any chance that you could be ? No Cliff Jackson " assessment of health literacy ([facility] 2014 Standards, 3C10) Adequate Cliff Jackson " [...] very busy though". Not homeless. Born in [facility]. City: [place]. State: [place]. Lives w/ mom and step-father in [place], 2 cats. Unemployed since November 2016. Highest education level: bachelor's degree. Not in workforce. Not on disability. 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 Bachelor's degree in [place] [employer] at [employer]. Sex at : Male. Sexual orientation: Palacio. Gender identity: Male. Gender of partner(s): Male. Age of first sexual intercourse: 17. Sexually Active: No. Not sexually active. Cliff Jackson " social history reviewed E&M reviewed today Cliff Jackson " is there any chance that you could be ? No Cliff Jackson " assessment of health literacy (NCQA [facility] 2014 Standards, 3C10) Adequate Cliff Jackson " [...] very busy though". Not homeless. Born in [facility]. City: [place]. State: [place]. Lives w/ mom and step-father in [place], 2 cats. Unemployed since November 2016. Highest education level: bachelor's degree. Not in workforce. Not on disability. 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 Bachelor's degree in [place] [employer] at [employer]. Sex at : Male. Sexual orientation: [...] " assessment of health literacy ([facility] 2014 Standards, 3C10) Adequate Angi Juan " [...] Angi Martinez " alcohol use Currently Angi Zeeland " social history E&M Single. Single. Parents when pt was age 16, mother and father both remarried. Relationship with father "I love him but don't like him... we talk on phone 1x a week". Relationship with mother and step-father "perfect and very good". One younger brother, "get along well, he is very busy though". Not homeless. Born in [facility]. City: [place]. State: [place]. Lives w/ mom and step-father in [place], 2 cats. Unemployed since November 2016. Highest education level: bachelor's degree. Not in workforce. Not on disability. 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 Bachelor's degree in [place] [employer] at [employer]. Sex at : Male. Sexual orientation: Palacio. Gender identity: Male. Gender of partner(s): Male. Age of first sexual intercourse: 17. Sexually Active: No. Not sexually active. Anig Martinez " social history reviewed E&M reviewed today Angi Martinez " sexual orientation Palacio Angi Martinez " is there any chance that you could be ? No Angi Hessrod " assessment of health literacy ([facility] 2014 Standards, 3C10) Adequate Angi Hessrod " [...] very busy though". Not homeless. Born in [facility]. City: [place]. State: [place]. Lives w/ mom and step-father in [place], 2 cats. Unemployed since November 2016. Highest education level: bachelor's degree. Not in workforce. Not on disability. 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 Bachelor's degree in [place] [employer] at [employer]. Sex at : Male. Sexual orientation: [...] " assessment of health literacy ([facility] 2014 Standards, 3C10) Adequate Michelle Hill " [...] " assessment of health literacy ([facility] 2014 Standards, 3C10) Adequate Elizabeth Kessler " [...] " assessment of health literacy ([facility] 2014 Standards, 3C10) Adequate Michelle Sergio smoking [...] very busy though". Not homeless. Born in [facility]. City: [place]. State: [place]. Lives w/ mom and step-father in [place], [facility]. Unemployed since November 2016. Highest education level: bachelor's degree. Not in workforce. Not on disability. 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 Bachelor's degree in [place] [employer] at [employer]. Sex at : Male. Sexual orientation: [...] " assessment of health literacy ([facility] 2014 Standards, 3C10) Adequate Deepika Chen Exercise [...] very busy though". Not homeless. Born in [facility]. City: [place]. State: [place]. Lives w/ mom and step-father in [place], 2 cats. Unemployed since November 2016. Highest education level: bachelor's degree. Not in workforce. Not on disability. 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 Bachelor's degree in [place] [employer] at [employer]. Sex at : Male. Sexual orientation: [...] " assessment of health literacy ([facility] 2014 Standards, 3C10) Adequate Deepika Chen Exercise [...] though". Not homeless. Born in [place]. City: [place]. State: [place]. Lives w/ mom and step-father in [place], cats. Unemployed since November 2016. Highest education level: bachelor's degree. Not in workforce. Not on disability. 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 Bachelor's degree in [place] [employer] at [employer]. Sex at : Male. Sexual orientation: [...] " assessment of health literacy ([facility] 2014 Standards, 3C10) Adequate Deepika Chen social [...] very busy though". Not homeless. Born in [facility]. City: [place]. State: [place]. Lives w/ mom and step-father in [place], cats. Unemployed since November 2016. Highest education level: bachelor's degree. Not in workforce. Not on disability. 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 Bachelor's degree in [place] [employer] at [employer]. Sex at : Male. Sexual orientation: [...] assessment Lives w/ mom and step-father in [place], 2 cats. Jasper Bobo " social history reviewed E&M reviewed today Sandra Monge " social history E&M Single. Spouse/Partner/Significant Other: n/a. Family is aware and supportive. Not homeless. Born in [facility]. City: [place]. State: [place]. Lives in [facility] and stepdad in [facility]. Not employed. Highest education level: bachelor's [...] [facility] and stepdad in [facility]. Sandra Monge " family support Family is aware and supportive. Sandra Monge " smoking, advice to quit Yes Sandra Monge " assessment of health literacy (NCQA [facility] 2014 Standards, 3C10) Adequate Sandra Monge [...] time, oriented to situation, oriented to reality Marcelinojoaquin Bruceo " hallucinations none Marcelino Leolga aFrahizo " thought content (mental status exam) (E&M) [...] Disorder Questionnaire - Question 2 0 Angi Zeeland " Generalized Anxiety Disorder Questionnaire - Question 1 0 Angi Zeeland assessment of mood and affect E&M good [...] to reality Garettmaritza Ledesma " hallucinations none [facility] " thought content (mental status exam) [...] motor activity normal gait, normal posture Garettmaritza [facility] " behavior (mental status exam) appropriate, candid, [...] anxiety worry a lot, sleep disturbance Garettmaritza Ledesma " mental status assessment, judgment fair [...] green party ID *Jasper White 0-100% Other [id number] Sliding Fee - Cat 1 [employer] [id number] *Jasper White 0-100% Other Sliding Fee - Cat 1 [employer] insurance company *Jasper White 0-100% Other [id number] *Jasper White 0-100% Other Sliding Fee - Cat 1 [employer] [id number] *Jasper White 0-100% Other [id number] ADVANCE DIRECTIVES Name Date DISCUSSED - NO [...] - - Est Patient Comprehensive Opth - 05930 Est Patient Intermediate Opth - 84895 Est Patient Exp Problem - 56079 Est Patient Detailed - 34868 Est Patient Detailed - 24987 Est Patient Exp Problem - 70701 Est Patient Exp Problem - 84363 Ofc Vst, Est Level III Est Patient Detailed - 59181 First Vx - Ix admin via ID IM or jet injects without counseling by physician Menactra Intramuscular Injectable Vision Vaccines Ordered - Print Consent/Declination Forms Ofc Vst, Est Level IV Xray - Chest - 2 Views - InHouse Handling of specimen for transfer Venipuncture Est Patient Detailed - 71841 Dispensing Visit (UNLIVSTED OPHTHALMOLOGICAL SERVICE/PROCEDURE) INFLUENZA VACCINE QUADRIVALENT 3 YRS PLUS IM Pneumovax Vaccine PPSV23 Admin of Vaccine - Injection - Each Add'l Admin of Vaccine - Injection - 1 Est Patient Detailed - 56900 Progressive lens, per lens Frames, purchases Est Patient Comprehensive Opth - 60354 New Patient Intermediate Opth - 09796 Est Patient Detailed - 72233 Est Patient Detailed - 42344 Est Patient Detailed - 70061 Est Patient Detailed - 07210 Est Patient Exp Problem - 87273 Est Patient Detailed - 13390 Diagnostic evaluation with medical - 67418 INFLUENZA VACCINE QUADRIVALENT 3 YRS PLUS IM Admin of Vaccine - Injection - 1 Est Patient Detailed - 33891 Est Patient Detailed - 51779 Prevnar (PCV13) IM TDAP Admin of Vaccine - Injection - Each Add'l Admin of Vaccine - Injection - 1 Est Patient Well Exam (40 - 64 Yrs) - 48196 [facility] - Psychiatry Diagnostic evaluation (no medical) - 48548 [facility] Assessment - Registered Massage Therapist Primary Care Service [facility] Xray - Chest - PA & Lat - InHouse Primary Care Service [facility] Handling of specimen for transfer Venipuncture Integrated [facility]al [facility] Assessment (IBH) New Patient Well Exam (40 - 64 Yrs) - 69290 Handling of specimen for transfer Venipuncture HISTORY OF PROCEDURES Procedure Date Procedure Name Provider Procedure Notes Status Est Patient Comprehensive Opt - 75301 Edgard Martin completed Est Patient Intermediate Opt - 20298 Chriss Martin completed First Vx - Ix [...] 60.00) completed Est Patient Comprehensive Opt - 84056 Edgard Martin completed New Patient Intermediate Opt - 67212 Chriss Martin completed Diagnostic evaluation with medical - 16188 Buck Ledesma completed [facility] Maximus Yancey Time spent with patient: 30 completed Diagnostic evaluation (no medical) - 59174 Jasper Bobo completed [facility] Assessment - Registered Massage Therapist Jasper Bobo completed [facility] Maximus Yancey Time spent with patient: 30 completed Primary [facility] Service [facility] Maximus Yancey Time spent with patient: 30 completed Venipuncture Sandra Monge completed Venipuncture Sandra Monge completed [facility] No Information Available [facility] No Information Available
--- OUTSIDE RECORDS SUMMARY | 2020-02-03 02:35 | XMS REPORT ---
Author Author Admin, [place] Organization Unknown Address Unknown Phone Unavailable PROBLEMS [...] Encounter Diagnosis - Ambulatory Encounter Edgard Song [facility] Vision UNK - Ambulatory Encounter Edgard Martin [facility] Vision UNK - Ambulatory Encounter Edgard Martin [facility] Vision SPECIAL SCREENING EXAMINATION OTH SPEC VIRAL DZ - Ambulatory Encounter Chrissjesus Martin [facility] Vision UNK - Ambulatory Encounter Chrissjesus Martin LM Vision UNK - Ambulatory Encounter Chrissjesus Martin [facility] Vision UNK - Ambulatory Encounter Chrissjesus Barajas [facility] Vision Encounter for exam of eyes and vision- abnormal findings - Ambulatory Encounter Betzaida Dunlap [facility] UNK - Ambulatory Encounter Martha Stallworth [facility] Public Health Services UNK - Ambulatory Encounter Nela Schroeder [facility] Adult Medicine UNK - Ambulatory Encounter Nela Jones [facility] UNK - Ambulatory Encounter Marcelino Ghosh [facility] Behavioral Health UNK - Ambulatory Encounter Nela Lanza [facility], [facility] Adult Medicine UNK - Ambulatory Encounter Nela Schroeder LM Adult Medicine UNK - Ambulatory Encounter Nela Pineda LM Adult Medicine UNK - Ambulatory Encounter Nela Waynekirill Nela Alexandre Lanza [facility], [facility] Adult Medicine UNK - Ambulatory Encounter Marcelino Leoz Callizo LM Behavioral Health UNK - Ambulatory Encounter Marcelino Leoz Callizo Thida Santos [facility] Behavioral Health UNK - Ambulatory Encounter Nela Schroeder [facility] LM Adult Medicine UNK - Ambulatory Encounter Nela Schroeder LM Adult Medicine UNK - Ambulatory Encounter Nela Walker LM Adult Medicine Abscess, axilla, right - Ambulatory Encounter Sandra Lanza [facility], [facility] Adult Medicine UNK - Ambulatory Encounter Dorothy Alberts [facility] Contact Center UNK - Ambulatory Encounter Isi Bliss [facility] Contact Center UNK - Ambulatory Encounter Buck Arringtons Isi Ramsaylermo Leoz Callizo Apurva Sukhi [facility] Contact Center UNK - Ambulatory [...] - Ambulatory Encounter Rinal Recinos Cliff Jackson [facility] Adult Medicine UNK - Ambulatory Encounter Rinshara Recinos [facility] Adult Medicine UNK - Ambulatory Encounter Mare Carbajal LM Adult Medicine UNK - Ambulatory Encounter Dorothy Nash [facility] Contact Center UNK - Ambulatory Encounter Destinishara Recinos [facility] Adult Medicine UNK - Ambulatory Encounter Cliff Arnold LM Adult Medicine UNK - Ambulatory Encounter Nela Schroeder [facility] Adult Medicine UNK - Ambulatory Encounter Nela Schroeder [facility] Adult [facility] UNK - [facility] - Ambulatory Encounter Nela Schroedre [facility] LM Adult Medicine UNK - Ambulatory Encounter Martha Stallworth [facility] Public Health Services UNK - Ambulatory Encounter Nela Schroeder LM Adult Medicine UNK - Ambulatory Encounter Nela Stallworth [facility] Adult Medicine HIV infectionHepatitis A immunityHepatitis B immunity - Ambulatory Encounter Cliff Napier [facility] UNK - Ambulatory Encounter Mare Carbajal [facility] Adult Medicine UNK - Ambulatory Encounter Rinal Recinoscaryl Napier [facility] Adult Medicine UNK - Ambulatory Encounter Cliff [...] Medicine UNK - Ambulatory Encounter Cliff Jackson [facility] Adult Medicine UNK - Ambulatory Encounter Cliff Jackson [facility] Adult Medicine UNK - Ambulatory Encounter Sandra Monge [facility] Jeromy Recinos [facility] Adult Medicine UNK - Ambulatory Encounter Sandra Monge [facility] Meghna Arnold [facility] Adult Medicine UNK - Ambulatory Encounter Fax Status [facility] UNK - Ambulatory Encounter Fax Status [facility] UNK - Ambulatory Encounter Fax Status [facility] UNK - Ambulatory Encounter Fax Status [facility] UNK - Ambulatory Encounter Mare Murillo [facility] Adult Medicine UNK - Ambulatory Encounter Jeromy Recinos [facility] Mare Carbajal [facility] Adult Medicine UNK - Ambulatory Encounter Jeromy Recinos [facility] Adult Medicine UNK - Ambulatory Encounter Meghna Nash [facility] Adult Medicine UNK - Ambulatory Encounter Fax Status [facility] UNK - Ambulatory Encounter Fax Status [facility] UNK - Ambulatory Encounter Sandra Monge [facility] Adult Medicine UNK - Ambulatory Encounter Sandra Nash [facility] Adult Medicine UNK - Ambulatory Encounter Lashaun Monge [facility] UNK - Ambulatory Encounter Sandra Monge [employer] Adult Medicine UNK - Ambulatory Encounter Jeromy Recinos [facility] Adult Medicine UNK - Ambulatory Encounter Jeromy Jackson [facility] Adult Medicine UNK - Ambulatory Encounter Cliff Jackson [facility] Adult Medicine UNK - Ambulatory Encounter Meghna Nash [facility] Adult Medicine UNK - Ambulatory Encounter Cliff Jackson [facility] Adult Medicine UNK - Ambulatory Encounter F[facility] - [facility]ulatory Encounter Sandra Monge [employer] Adult Medicine UNK - Ambulatory Encounter Sandra Monge [facility] Adult Medicine UNK - Ambulatory Encounter Sandra Quiles [facility] Adult Medicine Increased transaminase level - Ambulatory Encounter Sandra Monge [employer] Adult Medicine UNK - Ambulatory Encounter Sandra Mcgowan [facility] Adult Medicine UNK - Ambulatory Encounter Sandra Monge [facility] Adult Medicine UNK - Ambulatory Encounter Sandra Monge [facility] Adult Medicine UNK - Ambulatory Encounter Sandra Martinez [facility] Adult Medicine Hx Bronchitis acute with bronchospasmHyponatremiaHyperkalemiaHypercalcemia - Ambulatory Encounter Sandra Lanza [facility], [facility] Adult Medicine UNK - Ambulatory Encounter Sandra Lanza [facility], [facility] Adult Medicine UNK - Ambulatory Encounter Cliff Jackson [facility] Adult Medicine UNK - Ambulatory Encounter Sandra Monge [facility] Adult Medicine UNK - Ambulatory Encounter Sandra Monge [facility] Cliff Jackson [facility] Adult Medicine UNK - Ambulatory Encounter Sandra Lanza [facility], [facility] Adult Medicine UNK - Ambulatory Encounter Sandra Lanza [facility], [facility] Adult Medicine UNK - Ambulatory Encounter Boni Cristina [facility] Public Health Services UNK - Ambulatory Encounter Jazmin Perezers [facility] Vision UNK - Ambulatory Encounter Jazmin Bullard [facility] Vision UNK - Ambulatory Encounter Sandra Monge [employer] Adult Medicine UNK - Ambulatory Encounter Sandra Monge [employer]ic [facility] Adult Medicine UNK - Ambulatory Encounter Sandra Monge [facility] Adult Medicine UNK - Ambulatory Encounter Sandra Martinez [facility] Adult Medicine Onychomycosis, toenailsImmunization update - Ambulatory Encounter Jazmin Perezers [facility] Vision UNK - Ambulatory Encounter Edgard Martin [facility] Vision UNK - Ambulatory Encounter Edgard Martin [facility] Vision UNK - Ambulatory Encounter Edgard Hoffmann [facility] Vision SPECIAL SCREENING EXAMINATION OTH SPEC VIRAL DZ - Ambulatory Encounter Chriss Martin [facility] Vision UNK - Ambulatory Encounter Chriss Martin [facility] Vision UNK - Ambulatory Encounter Chriss Martin [facility] Vision UNK - Ambulatory Encounter Chrissjesus Bullard [facility] Vision Myopia - OURegular astigmatism, bilateralPresbyopia - OU - Ambulatory Encounter Sandra Kowalski [facility] Adult Medicine UNK - Ambulatory Encounter Sandra Vargas [facility] Adult Medicine UNK - Ambulatory Encounter Sandra Vargas [facility] Adult Medicine UNK - Ambulatory Encounter Sandra Yancey [facility] Adult Medicine UNK - Ambulatory Encounter Sandra Lanza [facility], [facility] Adult Medicine UNK - Ambulatory Encounter Sandra Lanza [facility], [facility] Adult Medicine UNK - Ambulatory Encounter Sandra Lanza [facility], [facility] Adult Medicine UNK - Ambulatory Encounter Sandra Lanza [facility], [facility] Adult Medicine UNK - Ambulatory Encounter Sandra Lanza [facility], [facility] Adult Medicine UNK - Ambulatory Encounter Sandra Lanza [facility], [facility] Adult Medicine UNK - Ambulatory Encounter Khloe Mckeon [facility] UNK - Ambulatory Encounter Khloe Jesus [facility] UNK - Ambulatory Encounter Amaury Nath [facility] Adult Medicine UNK - Ambulatory Encounter Amaury Marquezchanda [facility] Adult Medicine UNK - Ambulatory Encounter Sandra Monge [facility] Adult Medicine UNK - Ambulatory Encounter Sandra Monge [facility] Adult Medicine UNK - Ambulatory Encounter Sandra Hill [facility] Adult Medicine Hx Latent tuberculosis, s/p INH/B6Hx Bronchitis acute with bronchospasm - Ambulatory Encounter Buck Ledesma [facility] Behavioral Health UNK - Ambulatory Encounter Buck Ledesma [facility]ic [facility] Behavioral Health UNK - Ambulatory Encounter Sandra Vargas [facility] Adult Medicine UNK - Ambulatory Encounter Sandra GoldsteinLogkendrick Vargas [facility] Adult Medicine UNK - Ambulatory Encounter Sandra Bush [facility] UNK - Ambulatory Encounter Buck Ledesma [facility] Behavioral Health UNK - Ambulatory Encounter Buck Ledesma [employer]ic [facility] Behavioral Health UNK - Ambulatory Encounter Buck Solares [facility] Contact Center UNK - Ambulatory Encounter Sandra Castro [facility] UNK - Ambulatory Encounter Sandra Monge [facility] Leny Nicol Castro LM Adult Medicine UNK - Ambulatory Encounter Sandra Monge LM Adult Medicine UNK - Ambulatory Encounter Sandra Monge LM Adult Medicine UNK - Ambulatory Encounter Sandra Kessler [facility] Adult Medicine UNK - Ambulatory Encounter Sandra Monge [facility] Adult Medicine UNK - Ambulatory Encounter Sandra Monge [employer] [facility] Adult Medicine UNK - Ambulatory Encounter Nancy [facility] UNK - Ambulatory Encounter Khloe Lee [facility] UNK - Ambulatory Encounter Nancy GoldsteinLogic [facility] Adult Medicine UNK - Ambulatory Encounter Buck Burris [facility] Behavioral Health UNK - Ambulatory Encounter Sandra Monge [facility] Adult Medicine UNK - Ambulatory Encounter Sandra Hill [facility] Adult Medicine Hx Latent tuberculosis, s/p INH/[id number] - Ambulatory Encounter Sandra GoldsteinLogic LM Adult Medicine UNK - Ambulatory Encounter Sandra Boss [facility] Adult Medicine UNK - Ambulatory Encounter Buck Clarke [facility] UNK - Ambulatory Encounter Buck Ledesma [facility] Behavioral Health UNK - Ambulatory Encounter Buck Kowalski [facility] Behavioral Health UNK - Ambulatory Encounter Sandra GoldsteinLogkendrick LM Adult Medicine UNK - Ambulatory Encounter Garetteamon Chamberlainkaden [facility] UNK - Ambulatory Encounter Garetteamon Chamberlaincorbinzenon Burris [facility] Behavioral Health UNK - Ambulatory Encounter Lashaun Mckeon [facility] UNK - Ambulatory Encounter Sigridrach [facility] UNK - Ambulatory Encounter Garetteamon Chamberlainkaden [facility] Behavioral Health UNK - Ambulatory Encounter Marymaritza Callie Isifilippo Bliss [facility] Behavioral Health UNK - Ambulatory Encounter Sandra GoldsteinLogic [facility] Adult Medicine UNK - Ambulatory Encounter Sandra Monge [facility] Adult Medicine UNK - Ambulatory Encounter Sandra Chen [facility] Adult Medicine Flu shot - Ambulatory Encounter Sandra Monge [employer] [facility] Adult Medicine UNK - Ambulatory Encounter Sandra Chen [facility] Adult Medicine UNK - Ambulatory Encounter Sandra Monge [facility] Adult Medicine UNK - Ambulatory Encounter Sandra Chen [facility] Adult Medicine BMI < 20 - Ambulatory Encounter Sandra Monge [employer] [facility] Adult Medicine UNK - Ambulatory Encounter Sandra GoldsteinLogic [facility] UNK - Ambulatory Encounter Sandra Monge [facility] Adult Medicine UNK - Ambulatory Encounter Sandra Hill Deepika Jessicarez [facility] Adult Medicine Immunization updateVitamin D deficiency - Ambulatory Encounter Sandra Monge [facility] UNK - Ambulatory Encounter Jason Gilliam [facility] UNK - Ambulatory Encounter Sandra Hill [facility] Adult Medicine UNK - Ambulatory Encounter [facility] Care Coordination Desktop [facility] UNK - Ambulatory Encounter Sandra Monge [facility] Adult Medicine COPDHx Latent tuberculosis, s/p INH/B6 - Ambulatory Encounter Sadn[facility] Adult Medicine UNK - Ambulatory Encounter Maximus Yancey [facility] Auto Phone Installer UNK - Ambulatory Encounter Maximus Yancey [facility] Auto Phone Installer UNK - Ambulatory Encounter Jasonyoel Gilliam Id[facility] UNK - Ambulatory Encounter Sandra Kowalski [facility] Adult Medicine UNK - Ambulatory Encounter Maximus Yancey [facility] Auto Phone Installer UNK - Ambulatory Encounter Sandra Mcgowan [facility] Adult Medicine UNK - Ambulatory Encounter Maximus Yancey [facility] Auto Phone Installer UNK - Ambulatory Encounter Sandra Monge [facility] Adult Medicine UNK - Ambulatory Encounter Jasper Keller [facility] Behavioral Health DEPRESSIVE DISORDER, OTHER SPECIFIEDALCOHOL USE DISORDER, MODERATETOBACCO USE DISORDER, MODERATE - Ambulatory Encounter Sandra Jamison [facility] Adult Medicine - Ambulatory Encounter Sandra Kowalski [facility] Adult Medicine UNK - Ambulatory Encounter Sandra Day [facility] Adult Medicine Screening for hypercholesterolemia - Ambulatory Encounter Adrian Cristina [facility] Public Health Services UNK - Ambulatory Encounter Sandra Monge [facility] Vision UNK VITAL SIGNS Date Observation Value [...] " blood pressure, systolic 133 mm[Hg] Thida Sanots " pulse rate E&M 121 /min Thida [...] Pineda " temperature E&M 98.5 [degF] Dorothy Pnieda " weight E&M 139 lbs. Dorothy Pineda [...] " pulse rate E&M 88 /min Angi Spraggs " temperature E&M 98.9 [degF] Angi Juan " weight E&M 145.13 lbs. Angi Spraggs " weight in kilograms E&M 65.97 kg Angi Spraggs " method used to obtain blood pressure automatic Angi Spraggs " Blood Pressure Position 01 sitting Angi Spraggs " blood pressure, site #1 left arm Angi Juan " temperature site oral Angi Spraggs " height E&M 72 [in_i] Angi Spraggs " height in centimeters E&M 182.88 cm Angi Spraggs oxygen saturation, oximetry 95 % Angi Juan " blood pressure, diastolic 88 mm[Hg] Angi Juan " blood pressure, systolic 129 mm[Hg] Angi Spraggs " pulse rate E&M 96 /min Angi Spraggs " temperature E&M 98.4 [degF] Angi Juan " weight E&M 142 lbs. Angi Spraggs " weight in kilograms E&M 64.55 kg Angi Juan " method used to obtain blood pressure automatic Angi Spraggs " Blood Pressure Position 01 sitting Angi Spraggs " blood pressure, site #1 left arm Angi Spraggs " temperature site oral Angi Juan " height E&M 72 [in_i] Angi Spraggs " height in centimeters E&M 182.88 cm [...] creatinine, urine, 24 hour 2076 mg/24h [facility] [id number] High " creatinine, random, urine 38.1 mg/dL [...] creatinine, urine, 24 hour 1562 mg/24h [facility] [id number] " creatinine, random, urine 25.4 mg/dL [facility] [...] >3.0 " B-12, serum 471 pg/mL [facility] [id number] 4933/04/21 human leukocyte antigen B57 negative Sandra Monge [...] T-helper cells (CD4) count 1226 /UL [facility] [id number] HISTORY OF IMMUNIZATIONS Date Vaccine Dose Lot Number Status riri klein [facility] [id number] sanofi pasteur 0.5 mL [id number] completed HISTORY OF MEDICATION USE Medication Instructions [...] very busy though". Not homeless. Born in [facility]. City: [place]. State: [place]. Lives w/ mom and step-father in [place], 2 cats. Unemployed since November 2016. Highest education level: bachelor's degree. Not in workforce. Not on disability. 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 Sex at : Male. Sexual orientation: Palacio. [...] very busy though". Not homeless. Born in [facility]. City: [place]. State: [place]. Lives w/ mom and step-father in [place], 2 cats. Unemployed since November 2016. Highest education level: bachelor's degree. Not in workforce. Not on disability. 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 Sex at : Male. Sexual orientation: Palacio. Gender identity: Male. Gender of partner(s): Male. Age of first sexual intercourse: 17. Sexually Active: No. Not sexually active. Dorothy Pineda " social history reviewed E&M reviewed today Dorothy Pineda " assessment of health literacy ([facility] 2014 Standards, 3C10) Adequate Dorothy [...] very busy though". Not homeless. Born in [facility]. City: [place]. State: [place]. Lives w/ mom and step-father in [place], cats. Unemployed since November 2016. Highest education level: bachelor's degree. Not in workforce. Not on disability. 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 Sex at : Male. Sexual orientation: Palacio. [...] [facility] 2014 Standards, 3C10) Adequate Dylon Belle Walker [...] very busy though". Not homeless. Born in [facility]. City: [place]. State: [place]. Lives w/ mom and step-father in [place], cats. Unemployed since November 2016. Highest education level: bachelor's degree. Not in workforce. Not on disability. 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 Sex at : Male. Sexual orientation: Palacio. [...] very busy though". Not homeless. Born in [facility]. City: [place]. State: [place]. Lives w/ mom and step-father in [place], 2 cats. Unemployed since November 2016. Highest education level: bachelor's degree. Not in workforce. Not on disability. 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 Sex at : Male. Sexual orientation: Palacio. Gender identity: Male. Gender of partner(s): Male. Age of first sexual intercourse: 17. Sexually Active: No. Not sexually active. Dorothy Pineda " social history reviewed E&M reviewed today Dorothy Edwin " assessment of health literacy ([facility] 2014 Standards, 3C10) Adequate Dorothy Pineda " [...] very busy though". Not homeless. Born in [facility]. City: [place]. State: [place]. Lives w/ mom and step-father in [place], 2 cats. Unemployed since November 2016. Highest education level: bachelor's degree. Not in workforce. Not on disability. 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 Sex at : Male. Sexual orientation: Palacio. [...] very busy though". Not homeless. Born in [facility]. City: [place]. State: [place]. Lives w/ mom and step-father in [place], 2 cats. Unemployed since November 2016. Highest education level: bachelor's degree. Not in workforce. Not on disability. 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 Sex at : Male. Sexual orientation: Palacio. Gender identity: Male. Gender of partner(s): Male. Age of first sexual intercourse: 17. Sexually Active: No. Not sexually active. Cliff Jackson " social history reviewed E&M reviewed today Cliff Jackson " is there any chance that you could be ? No Cliff Jackson " assessment of health literacy ([facility] 2014 Standards, 3C10) Adequate Cliff Jackson [...] very busy though". Not homeless. Born in [facility]. City: [place]. State: [place]. Lives w/ mom and step-father in [place], 2 cats. Unemployed since November 2016. Highest education level: bachelor's degree. Not in workforce. Not on disability. 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 Sex at : Male. Sexual orientation: Palacio. [...] [facility] 2014 Standards, 3C10) Adequate Angi Juan [...] Angi Martinez " alcohol use Currently Angi Spraggs " social history E&M Single. Single. Parents when pt was age 16, mother and father both remarried. Relationship with father "I love him but don't like him... we talk on phone 1x a week". Relationship with mother and step-father "perfect and very good". One younger brother, "get along well, he is very busy though". Not homeless. Born in [facility]. City: [place]. State: [place]. Lives w/ mom and step-father in [place], 2 cats. Unemployed since November 2016. Highest education level: bachelor's degree. Not in workforce. Not on disability. 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 Sex at : Male. Sexual orientation: Palacio. Gender identity: Male. Gender of partner(s): Male. Age of first sexual intercourse: 17. Sexually Active: No. Not sexually active. Angi Martinez " social history reviewed E&M reviewed today Angi Martinez " sexual orientation Palacio Angi Martinez " is there any chance that you could be ? No Angi Hessrod " assessment of health literacy ([facility] 2014 Standards, 3C10) Adequate Angi Hessrod " [...] very busy though". Not homeless. Born in [facility]. City: [place]. State: [place]. Lives w/ mom and step-father in [place], 2 cats. Unemployed since November 2016. Highest education level: bachelor's degree. Not in workforce. Not on disability. 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 Sex at : Male. Sexual orientation: Palacio. [...] Garetteamon Callie Exercise Program Referral T Sandra oMnge " Weight Management Counseling Provided T Sandra [...] very busy though". Not homeless. Born in [facility]. City: [place]. State: [place]. Lives w/ mom and step-father in [place], [facility]. Unemployed since November 2016. Highest education level: bachelor's degree. Not in workforce. Not on disability. 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 Sex at : Male. Sexual orientation: Palacio. [...] Deepika Chen " assessment of health literacy ([facility] 2014 Standards, 3C10) Adequate Deepika Chen [...] very busy though". Not homeless. Born in [facility]. City: [place]. State: [place]. Lives w/ mom and step-father in [place], 2 cats. Unemployed since November 2016. Highest education level: bachelor's degree. Not in workforce. Not on disability. 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 Sex at : Male. Sexual orientation: Palacio. [...] Deepika Chen " assessment of health literacy ([facility] 2014 Standards, 3C10) Adequate Deepika Chen [...] though". Not homeless. Born in [place]. City: [place]. State: [place]. Lives w/ mom and step-father in [place], cats. Unemployed since November 2016. Highest education level: bachelor's degree. Not in workforce. Not on disability. 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 Sex at : Male. Sexual orientation: Palacio. [...] Deepika Chen " assessment of health literacy ([facility] 2014 Standards, 3C10) Adequate Deepika Chen [...] very busy though". Not homeless. Born in [facility]. City: [place]. State: [place]. Lives w/ mom and step-father in [place], cats. Unemployed since November 2016. Highest education level: bachelor's degree. Not in workforce. Not on disability. 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 Sex at : Male. Sexual orientation: Palacio. [...] assessment Lives w/ mom and step-father in [place], 2 cats. Jasper Bobo " social history reviewed E&M reviewed today Sandra Monge " social history E&M Single. Spouse/Partner/Significant Other: n/a. Family is aware and supportive. Not homeless. Born in [facility]. City: [place]. State: [place]. Lives in [facility] and stepdad in [facility]. Not employed. Highest education level: bachelor's [...] Monge " home/family situation, assessment Lives in [facility] and stepdad in [facility]. Sandra Monge " family support Family is aware and supportive. Sandra Monge " smoking, advice to quit Yes Sandra Monge " assessment of health literacy ([facility] 2014 Standards, 3C10) Adequate Sandra [...] Marcelinojoaquin Bruceo " hallucinations none Marcelino Leolga Farahizo [...] Disorder Questionnaire - Question 2 0 Angi Spraggs " Generalized Anxiety Disorder Questionnaire - Question 1 0 Angi Spraggs assessment of mood and affect E&M good [...] to reality Garettmaritza Ledesma " hallucinations [facility] " thought content (mental status [...] motor activity normal gait, normal posture [facility]itza [facility] " behavior (mental status exam) appropriate, [...] Hill mental status assessment, judgment fair Buck Ledemsa " insight (mental status exam) fair Garettmaritza [...] name Policy type / Coverage type Covered constitution party ID *Jasper White 0-100% Other [id number] Sliding Fee - Cat 1 [employer] [id number] *Jasper White 0-100% Other Sliding Fee - Cat 1 [employer] insurance company *Jasper White 0-100% Other [id number] *Jasper White 0-100% Other Sliding Fee - Cat 1 [employer] insurance [employer] [facility] [facility] [id number] *Jasper White 0-100% Other [id number] ADVANCE DIRECTIVES Name Date DISCUSSED - NO [...] - - Est Patient Comprehensive Opth - 75179 Est Patient Intermediate Opth - 38411 Est Patient Exp Problem - 47833 Est Patient Detailed - 59021 Est Patient Detailed - 55766 Est Patient Exp Problem - 30296 Est Patient Exp Problem - 83952 Ofc Vst, Est Level III Est Patient Detailed - 92560 First Vx - Ix admin via ID IM or jet injects without counseling by physician Menactra Intramuscular Injectable Vision Vaccines Ordered - Print Consent/Declination Forms Ofc Vst, Est Level IV Xray - Chest - 2 Views - InHouse Handling of specimen for transfer Venipuncture Est Patient Detailed - 51496 Dispensing Visit (UNLIVSTED OPHTHALMOLOGICAL SERVICE/PROCEDURE) INFLUENZA VACCINE QUADRIVALENT 3 YRS PLUS IM Pneumovax Vaccine PPSV23 Admin of Vaccine - Injection - Each Add'l Admin of Vaccine - Injection - 1 Est Patient Detailed - 54321 Progressive lens, per lens Frames, purchases Est Patient Comprehensive Opth - 79590 New Patient Intermediate Opth - 43606 Est Patient Detailed - 30604 Est Patient Detailed - 22007 Est Patient Detailed - 21119 Est Patient Detailed - 94494 Est Patient Exp Problem - 27762 Est Patient Detailed - 00654 Diagnostic evaluation with medical - 23140 INFLUENZA VACCINE QUADRIVALENT 3 YRS PLUS IM Admin of Vaccine - Injection - 1 Est Patient Detailed - 30395 Est Patient Detailed - 10144 Prevnar (PCV13) IM TDAP Admin of Vaccine - Injection - Each Add'l Admin of Vaccine - Injection - 1 Est Patient Well Exam (40 - 64 Yrs) - 17005 [facility] - Psychiatry Diagnostic evaluation (no medical) - 44598 [facility] Assessment - Loop Tacker Primary Care Service [facility] Xray - Chest - PA & Lat - InHouse Primary Care Service [facility] Handling of specimen for transfer Venipuncture Integrated Behavioral Health Assessment (IBH) New Patient Well Exam (40 - 64 Yrs) - 94406 Handling of specimen for transfer Venipuncture HISTORY OF PROCEDURES Procedure Date Procedure Name Provider Procedure Notes Status Est Patient Comprehensive Opt - 40936 Edgard Martin completed Est Patient Intermediate Opt - 25482 Chriss Martin completed First Vx - Ix [...] 60.00) completed Est Patient Comprehensive Opt - 09464 Edgard Martin completed New Patient Intermediate Opt - 38237 Chriss Martin completed Diagnostic evaluation with medical - 52865 Buck Ledesma completed [facility] Maximus Yancey Time spent with patient: 30 completed Diagnostic evaluation (no medical) - 87721 Jasper Bobo completed [facility] Assessment - Loop Tacker Jasper Bobo completed [facility] Maximus Yancey Time spent with patient: 30 completed [facility] Service [facility] Maximus Yancey Time spent with patient: 30 completed Venipuncture Sandra Monge completed Venipuncture Sandra Monge completed [facility] No Information Available [facility] No Information Available
--- OUTSIDE RECORDS SUMMARY | 2020-02-03 02:36 | XMS REPORT ---
Author Author Admin, [place] Organization Unknown Address Unknown Phone Unavailable PROBLEMS Condition Status Date Provider Notes Chronic back pain active Nela Shrikanth Arthralgia active Nela Shrikanth SPECIAL SCREENING EXAMINATION OTH SPEC VIRAL DZ [...] Bronchitis acute with bronchospasm completed - Nela Shrikabethanyh Hypertriglyceridemia active Sandra Monge Flu shot completed [...] Location Encounter Diagnosis - Ambulatory Encounter Nela Schroeder [facility] Adult Medicine UNK - Ambulatory Encounter Nela Pineda [facility] Adult Medicine ArthralgiaChronic back pain - Ambulatory Encounter Edgard Martin [facility] Vision UNK - Ambulatory Encounter Edgard Martin [facility] Vision UNK - Ambulatory Encounter Edgard Martin [facility] Vision SPECIAL SCREENING EXAMINATION OTH SPEC VIRAL DZ - Ambulatory Encounter Chrissjesus Martin [facility] Vision UNK - Ambulatory Encounter Chrissjesus Martin [facility] Vision UNK - Ambulatory Encounter Chrissjesus Martin [facility] Vision UNK - Ambulatory Encounter Chrissjesus Barajas [facility] Vision Encounter for exam of eyes and vision- abnormal findings - Ambulatory Encounter Betzaida Dunlap [facility] Services UNK - Ambulatory Encounter Martha Stallworth [facility] Public Health Services UNK - Ambulatory Encounter Nela Schroeder [facility] Adult Medicine UNK - Ambulatory Encounter Nela Jones [facility] Services UNK - Ambulatory Encounter Marcelino Leoz Callizo Rosy Ghosh [facility] Behavioral Health UNK - Ambulatory Encounter Nelairina Lanza MedAdherence, [facility] Adult Medicine UNK - Ambulatory Encounter Nelairina Schroeder [facility] Adult Medicine UNK - Ambulatory Encounter Nelairina Pineda [facility] Adult Medicine UNK - Ambulatory Encounter Nelairina Lanza MedAdherence, [facility] Adult Medicine UNK - Ambulatory Encounter Marcelino Leoz Callizo [facility] Behavioral Health UNK - Ambulatory Encounter Marcelino Leoz Callizo Natalyada Santos [facility] Behavioral Health UNK - Ambulatory Encounter Nelairina Schroeder LinkLogkendrick [facility] Adult Medicine UNK - Ambulatory Encounter Nelairina Schroeder [facility] Adult Medicine UNK - Ambulatory Encounter Nelairina Walker [facility] Adult Medicine Abscess, axilla, right - Ambulatory Encounter Sandra Lanza MedAdherence, [facility] Adult Medicine UNK - Ambulatory Encounter Dorothy Alberts [facility] Contact Center UNK - Ambulatory Encounter Isi Bliss [facility] Contact Center UNK - Ambulatory Encounter Buck Arringtons Isi Isbell [facility] Contact Center UNK - Ambulatory Encounter [...] Medicine UNK - Ambulatory Encounter Dorothy Nash [facility] Contact Center UNK - Ambulatory Encounter Rinal Recinos [facility] Adult Medicine UNK - Ambulatory Encounter Cliff Arnold [facility] Adult Medicine UNK - Ambulatory Encounter Nela Schroeder [facility] Adult Medicine UNK - Ambulatory Encounter Nela Schroeder [facility] Adult Medicine UNK - Ambulatory Encounter Dorothy Blackkirill Srinath Alberts [facility] Services Contact Center UNK - Ambulatory Encounter Nela Rondon Santikendraanthony [facility] Adult Medicine UNK - Ambulatory Encounter Martha Stallworth [facility] Public Health Services UNK - Ambulatory Encounter Nela Canasbethanykirill Rondon [facility] Adult Medicine UNK - Ambulatory Encounter Nela Canasbethanykirill Canasbethanykirill Kari Stallworth [facility] Adult Medicine HIV infectionHepatitis A immunityHepatitis B immunity - Ambulatory Encounter Cliff Napier [facility] Contact Center UNK - Ambulatory Encounter Mare Carbajal [facility] Adult Medicine UNK - Ambulatory Encounter Rinal Recinos Cliff Napier [facility] Adult Medicine UNK - Ambulatory Encounter [...] Medicine UNK - Ambulatory Encounter Sandra Monge [facility] Adult Medicine Osteopenia - Ambulatory Encounter Cliff Jackson [facility] Adult Medicine UNK - Ambulatory Encounter Jeromy Recinos [facility] Adult Medicine UNK - Ambulatory Encounter Destinishara Jorje Jackson [facility] Adult Medicine UNK - Ambulatory Encounter Cliff Jackson [facility] Adult Medicine UNK - Ambulatory Encounter Cliff Jackson LinkLogic [facility] Adult Medicine UNK - Ambulatory Encounter Sandra Monge [facility] Jeromy Recinos [facility] Adult Medicine UNK - Ambulatory Encounter Sandra Monge [facility]Logic Meghna Arnold [facility] Adult Medicine UNK - Ambulatory Encounter Fax Status [facility] UN[facility] - Ambulatory Encounter Fax Status [facility] Health Services UNK - Ambulatory Encounter Fax Status [facility] Services UNK - Ambulatory Encounter Fax Status [facility] Health Services UNK - Ambulatory Encounter Mare Murillo [facility] Adult Medicine UNK - Ambulatory Encounter Jeromy Recinos [facility] Mare Carbajal [facility] Adult Medicine UNK - Ambulatory Encounter Jeromy Recinos LinkLogic [facility] Adult Medicine UNK - Ambulatory Encounter Meghna Nash [facility] Adult Medicine UNK - Ambulatory Encounter Fax Status [facility] UNK - Ambulatory Encounter Fax Status [facility] Services UNK - Ambulatory Encounter Sandra Monge [facility] Adult Medicine UNK - Ambulatory Encounter Sandra Nash [facility] Adult Medicine UNK - Ambulatory Encounter Lashaun Monge [facility] Services UNK - Ambulatory Encounter Sandra Monge LinkLogic [facility] Adult Medicine UNK - Ambulatory Encounter Rinshara Recinos [facility] Adult Medicine UNK - Ambulatory Encounter Jeromy Recinos Trenasofia Manuel [facility] Adult Medicine UNK - Ambulatory Encounter Trenasofia Jackson [facility] Adult Medicine UNK - Ambulatory Encounter Meghna Nash [facility] Adult Medicine UNK - Ambulatory Encounter Bethanyjaswant Jackson [facility] Adult Medicine UNK - Ambulatory Encounter Fax Status [facility] Services UNK - Ambulatory Encounter Fax Status [facility] Services UNK - Ambulatory Encounter Sandra Monge LinkLogic [facility] Adult Medicine UNK - Ambulatory Encounter Sandra Monge [facility] Adult Medicine UNK - Ambulatory Encounter Sandra Quiles [facility] Adult Medicine Increased transaminase level - Ambulatory Encounter Sandra Monge LinkLogic [facility] Adult Medicine UNK - Ambulatory Encounter Sandra Mcgowan [facility] Adult Medicine UNK - Ambulatory Encounter Sandra Monge LinkLogic [facility] Adult Medicine UNK - Ambulatory Encounter Sandra Monge [facility] Adult Medicine UNK - Ambulatory Encounter Sandra Martinez [facility] Adult Medicine Hx Bronchitis acute with bronchospasmHyponatremiaHyperkalemiaHypercalcemia - Ambulatory Encounter Sandra Lanza MedAdherence, [facility] Adult Medicine UNK - Ambulatory Encounter Sandra Lanza MedAdherence, [facility] Adult Medicine UNK - Ambulatory Encounter Cliff Jackson [facility] Adult Medicine UNK - Ambulatory Encounter Sandra Monge [facility] Adult Medicine UNK - Ambulatory Encounter Sandra Monge LinkLogic Cliff Jackson [facility] Adult Medicine UNK - Ambulatory Encounter Sandra Lanza MedAdherence, [facility] Adult Medicine UNK - Ambulatory Encounter Sandra Lomashmisela [facility], [facility] Adult Medicine UNK - Ambulatory Encounter Boni Cristina [facility] Public Health Services UNK - Ambulatory Encounter Jazmin Bullard [facility] Vision UNK - Ambulatory Encounter Jazmin Bullard [facility] Vision UNK - Ambulatory Encounter Sandra Monge LinkLogic [facility] Adult Medicine UNK - Ambulatory Encounter Sandra Monge LinkLogic [facility] Adult Medicine UNK - Ambulatory Encounter Sandra Monge [facility] Adult Medicine UNK - Ambulatory Encounter Sandra Martinez [facility] Adult Medicine Onychomycosis, toenailsImmunization update - Ambulatory Encounter Jazmin Perezers [facility] Vision UNK - Ambulatory Encounter Edgard Martin [facility] Vision UNK - Ambulatory Encounter Edgard Martin [facility] Vision UNK - Ambulatory Encounter Edgard Martin Alexandra Hoffmann [facility] Vision SPECIAL SCREENING EXAMINATION OTH SPEC VIRAL DZ - Ambulatory Encounter Chrissjesus Martin [facility] Vision UNK - Ambulatory Encounter Chriss Martin [facility] Vision UNK - Ambulatory Encounter Chriss Martin [facility] Vision UNK - Ambulatory Encounter Chrissjesus Martin Jazmin Bullard [facility] Vision Myopia - OURegular astigmatism, bilateralPresbyopia - OU - Ambulatory Encounter Sandra Kowalski [facility] Adult Medicine UNK - Ambulatory Encounter Sandra Vargas [facility] Adult Medicine UNK - Ambulatory Encounter Sandra Vargas [facility] Adult Medicine UNK - Ambulatory Encounter Sandra Yancey MedAdherence [facility] Adult Medicine UNK - Ambulatory Encounter Sandra Lanza MedAdherence, [facility] Adult Medicine UNK - Ambulatory Encounter Sandra Lanza MedAdherence, [facility] Adult Medicine UNK - Ambulatory Encounter Sandra Lanza MedAdherence, [facility] Adult Medicine UNK - Ambulatory Encounter Sandra GoldsteinLogkendrick Lanza [facility], [facility] Adult Medicine UNK - Ambulatory Encounter Sandra Lanza [facility], [facility] Adult Medicine UNK - Ambulatory Encounter Sandra Lanza MedAdherence, [facility] Adult Medicine UNK - Ambulatory Encounter Khloe Mckeon [facility] UNK - Ambulatory Encounter Khloe Lee [facility] UNK - Ambulatory Encounter Amaury Nath [facility] Adult Medicine UNK - Ambulatory Encounter Amaury Nath [facility] Adult Medicine UNK - Ambulatory Encounter Sandra Monge [facility] Adult Medicine UNK - Ambulatory Encounter Sandra Monge [facility] Adult Medicine UNK - Ambulatory Encounter Sandra Hill [facility] Adult Medicine Hx Latent tuberculosis, s/p [id number] Bronchitis acute with bronchospasm - Ambulatory Encounter Buck Ledesma [facility] Behavioral Health UNK - Ambulatory Encounter Buck Kowalski [facility] Behavioral Health UNK - Ambulatory Encounter Sandra Vargas [facility] Adult Medicine UNK - Ambulatory Encounter Sandra Vargas [facility] Adult Medicine UNK - Ambulatory Encounter Sandra Bush [facility] Services UNK - Ambulatory Encounter Buck Ledesma [facility] Behavioral Health UNK - Ambulatory Encounter Buck GoldsteinLogic [facility] Behavioral Health UNK - Ambulatory Encounter Buck Luiiega [facility] Contact Center UNK - Ambulatory Encounter Sandra Michele Yejesus Gloria [facility] Services UNK - Ambulatory Encounter Sandra Monge [facility] Leny Yejesus ChildsCastro [facility] Adult Medicine UNK - Ambulatory Encounter Sandra Monge [facility] Adult Medicine UNK - Ambulatory Encounter Sandra Monge [facility] Adult Medicine UNK - Ambulatory Encounter Sandra Kessler [facility] Adult Medicine UNK - Ambulatory Encounter Sandra Monge [facility] Adult Medicine UNK - Ambulatory Encounter Sandra Monge LinkLogic [facility] Adult Medicine UNK - Ambulatory Encounter Nancy [facility] Services UNK - Ambulatory Encounter Khloe Jesus [facility] UNK - Ambulatory Encounter [facility] UNK - Ambulatory Encounter Buck Burris [facility] Behavioral Health UNK - Ambulatory Encounter Sandra Monge [facility] Adult Medicine UNK - Ambulatory Encounter Sandra Hill [facility] Adult Medicine Hx Latent tuberculosis, s/p [id number]/[id number] - Ambulatory Encounter Sandra Monge [facility]ic [facility] Adult Medicine UNK - Ambulatory Encounter Sandra Boss [facility] Adult Medicine UNK - Ambulatory Encounter Marymaritza Callie Ashlee Vince [facility] Services UNK - Ambulatory Encounter Garetteamon Chamberlainkaden [facility] Behavioral Health UNK - Ambulatory Encounter Garetteamon Chamberlainkaden LinkLogic [facility] Behavioral Health UNK - Ambulatory Encounter Sandra Monge LinkLogic [facility] Adult Medicine UNK - Ambulatory Encounter Garetteamon Chamberlainkaden Caro [facility] Behavior[facility] Health UNK - Ambulatory Encounter Garetteamon Chamberlainkaden Burris [facility] Behavioral Health UNK - Ambulatory Encounter Lashaun Mckeon [facility] Services UNK - Ambulatory Encounter Sigrid [facility] UNK - Ambulatory Encounter Garetteamon Keatingjagdeep [facility] Behavioral Health UNK - Ambulatory Encounter Marymaritza Chamberlainkaden Bliss [facility] Behavioral Health UNK - Ambulatory Encounter Sandra GoldsteinLogic [facility] Adult Medicine UNK - Ambulatory Encounter Sandra Monge [facility] Adult Medicine UNK - Ambulatory Encounter Sandra Chen [facility] Adult Medicine Flu shot - Ambulatory Encounter Sandra Monge [facility] LM Adult Medicine UNK - Ambulatory Encounter Sandra Chen [facility] Adult Medicine UNK - Ambulatory Encounter Sandra Monge [facility] Adult Medicine UNK - Ambulatory Encounter Sandra Chen [facility] Adult Medicine BMI < 20 - Ambulatory Encounter Sandra Kowalski [facility] Adult Medicine UNK - Ambulatory Encounter Sandra Monge [facility] Services UNK - Ambulatory Encounter Sandra Monge [facility] Adult Medicine UNK - Ambulatory Encounter Sandra Chen [facility] Adult Medicine Immunization updateVitamin D deficiency - Ambulatory Encounter Sandra Monge [facility] Services UNK - Ambulatory Encounter Jason Gilliam [facility] Services UNK - Ambulatory Encounter Sandra Hill [facility] Adult Medicine UNK - Ambulatory Encounter [facility] Care Coordination Desktop [facility] Michelle [facility] Services UNK - Ambulatory Encounter Sandra Monge [facility] Adult Medicine COPDHx Latent tuberculosis, s/p INH/B6 - Ambulatory Encounter [facility] Adult Medicine UNK - Ambulatory Encounter Maximus Yancey [facility] Condenser Setter UNK - Ambulatory Encounter Maximuskrys Yancey [facility] Condenser Setter UNK - Ambulatory Encounter Jason Nath [facility] Services UNK - Ambulatory Encounter Sandra GoldsteinLogkendrick [facility] Adult Medicine UNK - Ambulatory Encounter Maximuskrys Yancey [facility] Condenser Setter UNK - Ambulatory Encounter Sandra Mcgowan [facility] Adult Medicine UNK - Ambulatory Encounter Maximuskrys Yancey [facility] Condenser Setter UNK - Ambulatory Encounter Sandra Monge [facility] Adult Medicine UNK - Ambulatory Encounter aJsper Keller [facility] Behavioral Health DEPRESSIVE DISORDER, OTHER SPECIFIEDALCOHOL USE DISORDER, MODERATETOBACCO USE DISORDER, MODERATE - Ambulatory Encounter Sandra Jamison [facility] Adult Medicine - Ambulatory Encounter Sandra Monge LinkLogkendrick [facility] Adult Medicine UNK - Ambulatory Encounter Sandra Day [facility] Adult Medicine Screening for hypercholesterolemia - Ambulatory Encounter Adrian Cristina [facility] Public Health Services UNK - Ambulatory Encounter Sandra Monge [facility] Vision UNK VITAL SIGNS Date Observation Value Provider BP diastolic #1 102 mm[Hg] Nela Shrikanth " BP systolic #1 162 mm[Hg] Nela Shrikanth " blood pressure, diastolic, second observation 100 mm[Hg] Nela Shrikanth " blood pressure, systolic, second observation 150 mm[Hg] Nela Shrikanth " blood pressure, diastolic 100 mm[Hg] Nela Shrikanth " blood pressure, systolic 150 mm[Hg] Nela Shrikanth " oxygen saturation, oximetry 96 % Dorothy Pineda " pulse rate E&M 103 /min Dorothy Pineda " temperature E&M 98.4 [degF] Dorothy Pineda " weight E&M 139.38 lbs. Dorothy Pineda " weight in kilograms E&M 63.35 kg Dorothy Pineda " method used to [...] " weight in kilograms E&M 62.45 kg oRsy Ghosh " height E&M 72 [in_i] Rosy [...] Dorothy Pineda " temperature site oral Dorothy Edwin " height E&M 72 [in_i] Dorothy Pineda [...] used to obtain blood pressure automatic Dylon Walker " temperature site oral Dylon Walker " weight E&M 141 lbs. Dylon Walker " weight in kilograms E&M 64.09 kg Dylon Walker " height E&M 72 [in_i] Dylon Walker " height in centimeters E&M 182.88 cm Dylon Walker blood pressure, diastolic 96 mm[Hg] Dorothy Edwin " blood pressure, systolic 125 mm[Hg] Dorothy Edwin " oxygen saturation, oximetry 98 % Dorothy Edwin " pulse rate E&M 82 /min Dorothy Pineda " temperature E&M 98.5 [degF] Dorothy Edwin " weight E&M 139 lbs. Dorothychanda Pineda " weight in kilograms E&M 63.18 kg Dorothychanda Pineda " method used to obtain blood pressure automatic Dorothy iPneda " Blood Pressure Position 01 sitting Dorothy Edwin " blood pressure, site #1 left arm Dorothy Edwin " temperature site oral Dorothy Pineda " height E&M 72 [in_i] Dorothychanda Pineda " height in centimeters E&M 182.88 cm Dorothy Edwin oxygen saturation, oximetry 98 % Cliff Jackson [...] Kari Crawford " height E&M 72 [in_i] Karianam Mcdermottvez " height in centimeters E&M 182.88 cm Kari Crawford " method used to obtain blood pressure automatic Kari Crawford " Blood Pressure Position 01 sitting Kari Crawford " blood pressure, site #1 left arm Kari Crawford blood pressure, diastolic 84 mm[Hg] Sheebaly Manuel " blood pressure, systolic 122 mm[Hg] Cliff Jackson " pulse rate E&M 90 /min Trenacolumbaly Manuel " oxygen saturation, oximetry 97 % Trenasofia Jackson " temperature E&M 99.1 [degF] Cliff Jackson " weight E&M 146 lbs. Cliff Jackson " weight in kilograms E&M 66.36 kg Cliff Jackson " blood pressure, site #1 right arm Cliff Jackson " Blood Pressure Position 01 sitting Cliff Jackson " method used to obtain blood pressure automatic Sheebaly Manuel " temperature site oral Cliff Jackson " height E&M 72 [in_i] Cliff Jackson " height in centimeters E&M 182.88 cm Bethanyjaswant Jackson blood pressure, diastolic 79 mm[Hg] Angi Northridge " blood pressure, systolic 114 mm[Hg] Angi Juan " oxygen saturation, oximetry 98 % Angi Juan " pulse rate E&M 88 /min Angi Juan " temperature E&M 98.9 [degF] Angi Juan " weight E&M 145.13 lbs. Angi Juan " weight in kilograms E&M 65.97 kg Angi Northridge " method used to obtain blood pressure automatic Angi Northridge " Blood Pressure Position 01 sitting Angi Northridge " blood pressure, site #1 left arm Angi Northridge " temperature site oral Angi Northridge " height E&M 72 [in_i] Angi Northridge " height in centimeters E&M 182.88 cm Angi Northridge oxygen saturation, oximetry 95 % Angi Northridge " blood pressure, diastolic 88 mm[Hg] Angi Northridge " blood pressure, systolic 129 mm[Hg] Angi Juan " pulse rate E&M 96 /min Angi Juan " temperature E&M 98.4 [degF] Angi Northridge " weight E&M 142 lbs. Angi Northridge " weight in kilograms E&M 64.55 kg Angi Northridge " method used to obtain blood pressure automatic Angi Northridge " Blood Pressure Position 01 sitting Angi Juan " blood pressure, site #1 left arm Angi Northridge " temperature site oral Angi Northridge " height E&M 72 [in_i] Angi Northridge " height in centimeters E&M 182.88 cm Angi Juan blood pressure, diastolic 62 mm[Hg] Michelle Sergio " blood pressure, systolic 99 mm[Hg] Michelle Sergio " oxygen saturation, oximetry 96 % Michelle Sergio " pulse rate E&M 105 /min Michelle Hill " temperature E&M 97.4 [degF] Michelleadam Hill " weight E&M 129 lbs. Michelleadam Hill " weight in kilograms E&M 58.64 kg Michelle Sergio " method used to obtain blood pressure automatic Michelle Sergio " Blood Pressure Position 01 sitting Michelleadam Hill " blood pressure, site #1 right arm Michelle Sergio " temperature site oral Michelleadam Hill " height E&M 72 [in_i] Michelle Sergio " height in centimeters E&M 182.88 cm Michelle Hill oxygen saturation, oximetry 99 % Elizabeth Kessler " blood pressure, diastolic 64 mm[Hg] Elizabeth Kessler " blood pressure, systolic 98 mm[Hg] Elizabeth Kessler " pulse rate E&M 83 /min Elizabeth Kessler " temperature E&M 98.5 [degF] Elizabeth Checo " weight E&M 130.40 lbs. Elizabeth Kessler " weight in kilograms E&M 59.27 kg Elizabeth Kessler " method used to obtain blood pressure automatic Elizabeth Kessler " Blood Pressure Position 01 sitting Elizabeth Kessler " blood pressure, site #1 right arm Elizabeth Checo " temperature site tympanic Elizabeth Kessler " height E&M 72 [in_i] Elizabeth Kessler " height in centimeters E&M 182.88 cm Elizabeth Kessler method used to obtain blood pressure automatic [...] Michelle Hill " temperature site tympanic Michelle iHll " height E&M 72 [in_i] Michelle Hill [...] " Blood Pressure Position 01 sitting Deepikabeatris Jessicarez " blood pressure, site #1 left arm Deepika Chen " temperature site tympanic Deepika Chen " height E&M 72 [in_i] Deepika Chen " height in centimeters E&M 182.88 cm Deepikabeatris Chen blood pressure, diastolic 78 mm[Hg] Deepika [...] Hill " temperature E&M 97.4 [degF] Michelle Sergio " height E&M 72 [in_i] Michelle Hill " height in centimeters E&M 182.88 cm Michelle Hill " weight E&M 141 lbs. Michelle Sergio " weight in kilograms E&M 64.09 kg Michelle Sergio " method used to obtain blood pressure automatic Michelle Hill " Blood Pressure Position 01 sitting Michelle Sergio " blood pressure, site #1 right arm Michelle Sergio " temperature site tympanic Michelle Hill Allergies [...] creatinine, urine, 24 hour 2076 mg/24h [facility] [id number] High " creatinine, random, urine 38.1 mg/dL [...] creatinine, urine, 24 hour 1562 mg/24h [employer] [id number] " creatinine, random, urine 25.4 mg/dL [employer] [...] >3.0 " B-12, serum 471 pg/mL [employer] [id number] 0964/04/21 human leukocyte antigen B57 negative Sandra Monge [...] Vaccine Dose Lot Number Status menactra im [facility] [address]-12 sanofi pasteur 0.5 mL [id number] completed HISTORY OF MEDICATION USE Medication Instructions Dates Provider Comments MELOXICAM 7.5 MG ORAL TABLET Take 1 tablet orally once daily as needed Nela Shrikanth DRYSOL 20 % EXTERNAL SOLUTION Apply once daily Nela Shrikanth HYPERCARE 15 % EXTERNAL SOLUTION Apply once daily as needed Nela Shrikanth PROZAC 20 MG ORAL CAPSULE Take one capsule daily. Marcelino Flores PIFELTRO 100 MG ORAL TABLET Take 1 tablet orally once daily Nelairina Cnaasbethanykirill ONDANSETRON 4 MG ORAL TABLET DISINTEGRATING 1 [...] ONE TABLET BY MOUTH ONCE DAILY Nela Santiikabethanyh DESCOVY 200-25 MG ORAL TABLET 1 tab by mouth daily with food - Nela Santiikanth PROZAC 40 MG ORAL CAPSULE 1 By [...] By Mouth Every Day - Sandra Mariposa METOPROLOL SUCCINATE 50 MG TAB ER 24H [...] busy though". Not homeless. Born in [facility]. City: [place]. State: [place]. Lives w/ mom and step-father in [place], [facility]. Unemployed since November 2016. Highest education level: bachelor's degree. Not in workforce. Not on disability. 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 Bachelor's degree in [employer] at [employer]. Sex at : Male. Sexual orientation: Palacio. Gender identity: Male. Gender of partner(s): Male. Age of first sexual intercourse: 17. Sexually Active: No. Not sexually active. Dorothy Pineda " social history reviewed E&M reviewed today Dorothy Pineda " assessment of health literacy ([facility] 2014 Standards, 3C10) Adequate Dorothy Pineda " passive cigarette smoke exposure No Dorothy Pineda " smoking status current every day smoker Dorothy Pineda sexual orientation Palacio Jess Karl time of call 11/15/2019 1:21 PM Martha AustinMichaelSimons drug use, illicit Previously Marcelino Brucegurwinder " [...] busy though". Not homeless. Born in [facility]. City: [place]. State: [place]. Lives w/ mom and step-father in [address] Unemployed since November 2016. Highest education level: bachelor's degree. Not in workforce. Not on disability. 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 Bachelor's degree in [employer] Literature at [employer]. Sex at : Male. Sexual orientation: Palacio. Gender identity: Male. Gender of partner(s): Male. Age of first sexual intercourse: 17. Sexually Active: No. Not sexually active. Marcelino Farahjudah " social history reviewed E&M reviewed today Marcelino Farahjudah drug use, illicit Previously Dorothy Edwin " [...] busy though". Not homeless. Born in [facility]. City: [place]. State: [place]. Lives w/ mom and step-father in [place], cats. Unemployed since November 2016. Highest education level: bachelor's degree. Not in workforce. Not on disability. 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 Bachelor's degree in [employer] Literature at [employer]. Sex at : Male. Sexual orientation: Palacio. Gender identity: Male. Gender of partner(s): Male. Age of first sexual intercourse: 17. Sexually Active: No. Not sexually active. Dorothychanda Pineda " social history reviewed E&M reviewed today Dorothy Pineda " assessment of health literacy ([facility] 2014 Standards, 3C10) Adequate Dorothy Pineda [...] busy though". Not homeless. Born in [facility]. City: [place]. State: [place]. Lives w/ mom and step-father in [place], cats. Unemployed since November 2016. Highest education level: bachelor's degree. Not in workforce. Not on disability. 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 Bachelor's degree in [employer] Literature at [employer]. Sex at : Male. Sexual orientation: Palacio. [...] E Aaron " assessment of health literacy ([facility] 2014 Standards, 3C10) Adequate Dylon E Aaron [...] though". Not homeless. Born in [place] City[place]. State: [place]. Lives w/ mom and step-father in [place], 2 cats. Unemployed since November 2016. Highest education level: bachelor's degree. Not in workforce. Not on disability. 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 Bachelor's degree in [employer] Literature at [employer]. Sex at : Male. Sexual orientation: Palacio. [...] Dorothy Edwin " alcohol use Currently Dorothy Pineda " [...] though". Not homeless. Born in [place] City[place] State: [place]. Lives w/ mom and step-father in [place], cats. Unemployed since November 2016. Highest education level: bachelor's degree. Not in workforce. Not on disability. 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 Bachelor's degree in [employer] Literature at [employer]. Sex at : Male. Sexual orientation: Palacio. Gender identity: Male. Gender of partner(s): Male. Age of first sexual intercourse: 17. Sexually Active: No. Not sexually active. Dorothy Pineda " social history reviewed E&M reviewed today Dorothy Pineda " assessment of health literacy ([facility] 2014 Standards, 3C10) Adequate Dorothychanda Pineda " passive cigarette smoke exposure No Dorothychanda [...] busy though". Not homeless. Born in [facility]. City: [place]. State: [place]. Lives w/ mom and step-father in [place], cats. Unemployed since November 2016. Highest education level: bachelor's degree. Not in workforce. Not on disability. 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 Bachelor's degree in [employer] Literature at [employer]. Sex at : Male. Sexual orientation: Palacio. Gender identity: Male. Gender of partner(s): Male. Age of first sexual intercourse: 17. Sexually Active: No. Not sexually active. Cilff Jackson " social history reviewed E&M reviewed today Sheebarachell Manuel " is there any chance that you could be ? No Cliff Jackson " assessment of health literacy ([facility] 2014 Standards, 3C10) Adequate Cliff Jackson " passive cigarette smoke exposure Yes Cliff Jackson " smoking status current every day smoker Bethanyjaswatn Manuel time of call 05/28/2019 1:25 PM Jazlyn [...] busy though". Not homeless. Born in [facility]. City: [place]. State: [place]. Lives w/ mom and step-father in [place], 2 cats. Unemployed since November 2016. Highest education level: bachelor's degree. Not in workforce. Not on disability. 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 Bachelor's degree in [employer] Literature at [employer]. Sex at : Male. Sexual orientation: Palacio. Gender identity: Male. Gender of partner(s): Male. Age of first sexual intercourse: 17. Sexually Active: No. Not sexually active. Cliff Jackson " social history reviewed E&M reviewed today Cliff Jackson " is there any chance that you could be ? No Cliff Jackson " assessment of health literacy ([facility] Standards, 3C10) Adequate Cliff Jackson [...] busy though". Not homeless. Born in [facility]. City: [place]. State: [place]. Lives w/ mom and step-father in [place], 2 cats. Unemployed since November 2016. Highest education level: bachelor's degree. Not in workforce. Not on disability. 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 Bachelor's degree in [employer] Literature at [employer]. Sex at : Male. Sexual orientation: Palacio. Gender identity: Male. Gender of partner(s): Male. Age of first sexual intercourse: 17. Sexually Active: No. Not sexually active. Angi Martinez " social history reviewed E&M reviewed today Angi Martinez " sexual orientation Palacio Angi Martinez " is there any chance that you could be ? No Angi Martinez " assessment of health literacy ([facility] 2014 Standards, 3C10) Adequate Angi Martinez [...] busy though". Not homeless. Born in [facility]. City: [place]. State: [place]. Lives w/ mom and step-father in [place], 2 cats. Unemployed since November 2016. Highest education level: bachelor's degree. Not in workforce. Not on disability. 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 Bachelor's degree in [employer] Literature at [employer]. Sex at : Male. Sexual orientation: Palacio. Gender identity: Male. Gender of partner(s): Male. Age of first sexual intercourse: 17. Sexually Active: No. Not sexually active. Angi Juan " social history reviewed E&M reviewed today Anginava Martinez " sexual orientation Palacio Angi Martinez " is there any chance that you could be ? No Angi Martinez " assessment of health literacy ([facility] 2014 Standards, 3C10) Adequate Angi Martinez [...] busy though". Not homeless. Born in [facility]. City: [place]. State: [place]. Lives w/ mom and step-father in [place], cats. Unemployed since November 2016. Highest education level: bachelor's degree. Not in workforce. Not on disability. 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 Bachelor's degree in [employer] Literature at [employer]. Sex at : Male. Sexual orientation: Palacio. [...] Michelle Hill " assessment of health literacy ([facility] 2014 Standards, 3C10) Adequate Michelle Hill [...] Elizabeth Kessler " assessment of health literacy ([facility] 2014 Standards, 3C10) Adequate Elizabeth Kessler [...] Michelleadam Hill " assessment of health literacy ([facility] 2014 Standards, 3C10) Adequate Michelle Sergio [...] busy though". Not homeless. Born in [facility]. City: [place]. State: [place]. Lives w/ mom and step-father in [place], 2 cats. Unemployed since November 2016. Highest education level: bachelor's degree. Not in workforce. Not on disability. 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 Bachelor's degree in [employer] Literature at [employer]. Sex at : Male. Sexual orientation: Palacio. [...] Deepika Chen " assessment of health literacy ([facility] 2014 Standards, 3C10) Adequate Deepika Chen [...] busy though". Not homeless. Born in [facility]. City: [place]. State: [place]. Lives w/ mom and step-father in [place], [facility]. Unemployed since November 2016. Highest education level: bachelor's degree. Not in workforce. Not on disability. 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 Bachelor's degree in [employer] Literature at [employer]. Sex at : Male. Sexual orientation: Palacio. [...] Deepika Chen " assessment of health literacy ([facility] 2014 Standards, 3C10) Adequate Deepika Gustavo Exercise Program Referral T Sandra Monge " Weight Management Counseling Provided T Sandra Monge " Nutrition intervention T Sandra Monge " smoking, advice to quit Yes Sandra Monge " drug use, illicit Previously Deepika Valentinoierrez " alcohol use Currently Deepika Valentinoierrez " social history E&M Single. Single. Parents when pt was age 16, mother and father both remarried. Relationship with father "I love him but don't like him... we talk on phone 1x a week". Relationship with mother and step-father "perfect and very good". One younger brother, "get along well, he is very busy though". Not homeless. Born in [facility]. City: [place]. State: [place]. Lives w/ mom and step-father in [place], cats. Unemployed since November 2016. Highest education level: bachelor's degree. Not in workforce. Not on disability. 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 Bachelor's degree in [employer] Literature at [employer]. Sex at : Male. Sexual orientation: Palacio. Gender identity: Male. Gender of partner(s): Male. Age of first sexual intercourse: 17. Sexually Active: No. Not sexually active. Deepika Chen " social history reviewed E&M reviewed today Deepika Chen " sexual orientation Palacio Deepika Chen " passive cigarette smoke exposure No Deepikabeatris Chen " smoking status current every day smoker Deepika Jessicarez " assessment of health literacy ([facility] 2014 Standards, 3C10) Adequate Deepika Gustavo social history reviewed E&M reviewed today Jasper [...] busy though". Not homeless. Born in [facility]. City: [place]. State: [place]. Lives w/ mom and step-father in [place], 2 cats. Unemployed since November 2016. Highest education level: bachelor's degree. Not in workforce. Not on disability. 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 Bachelor's degree in [employer] Literature at [employer]. Sex at : Male. Sexual orientation: Palacio. [...] assessment Lives w/ mom and step-father in [place], [facility]. Jasper Bobo " social history reviewed E&M reviewed today Sandra Monge " social history E&M Single. Spouse/Partner/Significant Other: n/a. Family is aware and supportive. Not homeless. Born in [facility]. City: [place]. State: [place]. Lives in [facility] and stepdad in [place] in [facility]. Not employed. Highest education level: [...] Monge " home/family situation, assessment Lives in [facility] and stepdad in [place] in [facility]. Sandra Mariposa " family support Family is aware and supportive. Sandra Donovanek " smoking, advice to quit Yes Sandra Mariposa " assessment of health literacy ([facility] 2014 Standards, 3C10) Adequate Sandra Monge [...] and insight E&M intact Nela Schroeder " assessment of mood and affect E&M good eye contact, normal affect Nela Schroeder " Generalized Anxiety Disorder Questionnaire - Question 2 0 Dorothy Pineda " Generalized Anxiety Disorder Questionnaire - Question 1 0 Dorothy Pineda assessment of mood and affect E&M good eye contact, normal affect Edgard Martin " mental status examination: orientation E&M alert and oriented to person, place, and time Edgard Martin mental status assessment, judgment fair Marcelino Raymundooz Teoo " insight (mental status exam) fair Marcelino Leoz Callizo " Mental Status Exam: intelligence adequate fund of information, intact memory processes, oriented to person, oriented to place, oriented to time, oriented to situation, oriented to reality Marcelino Leoz Calltyo " hallucinations none Marcelino Leoz Callizo " thought content (mental status exam) (E&M) lucid Marcelino Raymundooz Teoo " mental status assessment, process able to abstract, goal-directed, logical Marcelino Breanneoz Callizo " mental status assessment, sensorium alert, attentive, clear Marcelino Breanneoz Callizo " affect (mental status exam) congruent, [...] cooperative, good eye contact, polite, responsive Marcelino Flores " mental appearance (mental status exam) adequate hygiene, appropriate dress, looks like stated age, neat, smells of heavy cigarette smoke/tobacco Marcelino Flores assessment of judgment and insight E&M intact [...] looks like stated age, neat Zishan Samiuddin assessment of judgment and insight E&M intact [...] looks like stated age, neat Zishan Samiuddin mental status assessment, judgment fair Zishan [...] appropriate dress, looks like stated age, satya Keatingudzenon mood (mental status exam) pleasant Zishan Samiuddin " anxiety worry a lot, sleep disturbance Garettshan Samiuddin " mental status assessment, judgment fair [...] congruent, euthymic, normal intensity, normal range Zishan Samijagdeep " mental status assessment, speech activity normal flow, normal pace, normal pressure, normal rate, normal tone, normal volume, spontaneous, loud Garetteamon Keatingjanetzenon " mental status assessment, motor activity normal gait, normal posture Garetteamon Keatingjanetzenon " behavior (mental status exam) appropriate, candid, cooperative, good eye contact, polite, responsive Garetteamon Keatingjanetzenon " mental appearance (mental status exam) adequate hygiene, appropriate dress, looks like stated age, neat Garetteamon Keatingjagdeep assessment of judgment and insight E&M [...] Disorder Questionnaire - Question 2 0 Michelle Sergio " Generalized Anxiety Disorder Questionnaire - Question 1 0 Michelle Sergio MEDICAL EQUIPMENT No Information Available FAMILY HISTORY No Information Available INSURANCE PROVIDERS Payer name Policy type / Coverage type Covered libertarian ID *Jasper White 0-100% Other [id number] Sliding Fee - Cat 1 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 Metabolic Panel (14) RPR, Rfx Qn [...] hypercalcemia - - Est Patient Detailed - 87604 Est Patient Comprehensive Opth - 80687 Est Patient Intermediate Opth - 28222 Est Patient Exp Problem - 49629 Est Patient Detailed - 70422 Est Patient Detailed - 01131 Est Patient Exp Problem - 90301 Est Patient Exp Problem - 68344 Ofc Vst, Est Level III Est Patient Detailed - 08052 First Vx - Ix admin via ID IM or jet injects without counseling by physician Menactra Intramuscular Injectable Vision Vaccines Ordered - Print Consent/Declination Forms Ofc Vst, Est Level IV Xray - Chest - 2 Views - InHouse Handling of specimen for transfer Venipuncture Est Patient Detailed - 58291 Dispensing Visit (UNLIVSTED OPHTHALMOLOGICAL SERVICE/PROCEDURE) INFLUENZA VACCINE QUADRIVALENT 3 YRS PLUS IM Pneumovax Vaccine PPSV23 Admin of Vaccine - Injection - Each Add'l Admin of Vaccine - Injection - 1 Est Patient Detailed - 90595 Progressive lens, per lens Frames, purchases Est Patient Comprehensive Opth - 70013 New Patient Intermediate Opth - 81198 Est Patient Detailed - 48979 Est Patient Detailed - 35404 Est Patient Detailed - 06395 Est Patient Detailed - 94721 Est Patient Exp Problem - 86344 Est Patient Detailed - 96466 Diagnostic evaluation with medical - 30292 INFLUENZA VACCINE QUADRIVALENT 3 YRS PLUS IM Admin of Vaccine - Injection - 1 Est Patient Detailed - 79366 Est Patient Detailed - 74399 Prevnar (PCV13) IM TDAP Admin of Vaccine - Injection - Each Add'l Admin of Vaccine - Injection - 1 Est Patient Well Exam (40 - 64 Yrs) - 51835 Primary Care Service [facility] - Psychiatry Diagnostic evaluation (no medical) - 65524 [facility] 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 Primary Care Service Link[facility] Xray - Chest - PA & Lat - InHouse Primary Care Service Linkage Handling of specimen for transfer Venipuncture Integrated Behavioral Health Assessment (IBH) New Patient Well Exam (40 - 64 Yrs) - 99924 Handling of specimen for transfer Venipuncture HISTORY OF PROCEDURES Procedure Date Procedure Name Provider Procedure Notes Status Est Patient Comprehensive Opt - 98028 Edgard Martin completed Est Patient Intermediate Opt - 26556 Chriss Martin completed First Vx - Ix [...] #1111 (Pd 60.00) completed Est Patient Comprehensive Opth - 54137 Edgard Martin completed New Patient Intermediate Opth - 86615 Chriss Martin completed Diagnostic evaluation with medical - 34108 Buck Ledesma completed Primary [facility] Service [facility] Maximus Yancey Time spent with patient: 30 completed Diagnostic evaluation (no medical) - 61195 Jasper Bobo completed [facility] 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
--- OUTSIDE RECORDS SUMMARY | 2020-02-03 02:38 | XMS REPORT ---
Author Author Admin, [place] Organization Unknown Address Unknown Phone Unavailable PROBLEMS [...] active Sandra Monge Onychomycosis, toenails active Sandra Moneg SPECIAL SCREENING EXAMINATION OTH SPEC VIRAL DZ [...] Encounter Diagnosis - Ambulatory Encounter Nela Schroeder [facility] Adult Medicine UNK - Ambulatory Encounter Nela Pineda [facility] Adult Medicine ArthralgiaChronic back pain - Ambulatory Encounter Edgard Martin [facility] Vision UNK - Ambulatory Encounter Edgard Martin [facility] Vision UNK - Ambulatory Encounter Edgard Martin [facility] Vision SPECIAL SCREENING EXAMINATION OTH SPEC VIRAL DZ - Ambulatory Encounter Chrissjesus Martin [facility] Vision UNK - Ambulatory Encounter Chrissjesus Martin [facility] Vision UNK - Ambulatory Encounter Chrsisjesus Martin [facility] Vision UNK - Ambulatory Encounter Chrissjesus Barajas [facility] Vision Encounter for exam of eyes and vision- abnormal findings - Ambulatory Encounter Betzaida Dunlap [facility] Services UNK - Ambulatory Encounter Martha Stallworth [facility] Public Health Services UNK - Ambulatory Encounter Nela Schroeder [facility] Adult Medicine UNK - Ambulatory Encounter Nela Jones [facility] Services UNK - Ambulatory Encounter Marcelino Leoz Callizo Rosy Ghosh [facility] Behavioral Health UNK - Ambulatory Encounter Nelairina Lanza [facility], [facility] Adult Medicine UNK - Ambulatory Encounter Nelairina Schroeder [facility] Adult Medicine UNK - Ambulatory Encounter Nelairina Pineda [facility] Adult Medicine UNK - Ambulatory Encounter Nelairina Lanza MedAdherence, [facility] Adult Medicine UNK - Ambulatory Encounter Marcelino Leoz Callizo [facility] Behavioral Health UNK - Ambulatory Encounter Marcelino Leoz Callizo Natalyada Santos [facility] Behavioral Health UNK - Ambulatory Encounter Nelairina Schroeder LinkLogkendrick [facility] Adult Medicine UNK - Ambulatory Encounter Nelairina Schroeder [facility] Adult Medicine UNK - Ambulatory Encounter Nelairina Walker [facility] Adult Medicine Abscess, axilla, right - Ambulatory Encounter Sandra Lanza MedAdherence, [facility] Adult Medicine UNK - Ambulatory Encounter Dorothy Alberts [facility] Contact Center UNK - Ambulatory Encounter Isi Bliss [facility] Contact Center UNK - Ambulatory Encounter Buck Arringtons Isi Isbell [facility] Services Contact Center UNK - [...] Medicine UNK - Ambulatory Encounter Dorothy Nash [facility] Services Contact Center UNK - Ambulatory Encounter Rinal Recinos [facility] Adult Medicine UNK - Ambulatory Encounter Cliff Arnold [facility] Adult Medicine UNK - Ambulatory Encounter Nela Schroeder [facility] Adult Medicine UNK - Ambulatory Encounter Nela Schroeder [facility] Adult Medicine UNK - Ambulatory Encounter Dorothy Blackkirill Srinath Alberts [facility] Services Contact Center UNK - Ambulatory Encounter Nela Rondon Santikendraanthony [facility] Adult Medicine UNK - Ambulatory Encounter Martha Stallworth [facility] Public Health Services UNK - Ambulatory Encounter Nela Canasbethanykirill Rondon Alexandre LM Adult Medicine UNK - Ambulatory Encounter Nela Canasbethanykirill Canasbethanykirill Kari Stallworth [facility] Adult Medicine HIV infectionHepatitis A immunityHepatitis B immunity - Ambulatory Encounter Cliff Napier [facility] Services Contact Center UNK - [...] Medicine UNK - Ambulatory Encounter Sandra Monge [facility] Adult Medicine Osteopenia - Ambulatory Encounter Cliff Jackson [facility] Adult Medicine UNK - Ambulatory Encounter Jeromy Recinos [facility] Adult Medicine UNK - Ambulatory Encounter Destinishara Jorje Jackson [facility] Adult Medicine UNK - Ambulatory Encounter Cliff Jackson [facility] Adult Medicine UNK - Ambulatory Encounter Cliff Jackson LinkLogic [facility] Adult Medicine UNK - Ambulatory Encounter Sandra Monge LinkLogic Jeromy Recinos [facility] Adult Medicine UNK - Ambulatory Encounter Sandar Monge [facility] Meghna Arnold [facility] Adult Medicine UNK - Ambulatory Encounter Fax Status [facility] Services UNK - Ambulatory Encounter Fax Status [facility] Health Services UNK - Ambulatory Encounter Fax Status [facility] Health Services UNK - Ambulatory Encounter Fax Status [facility]Log[facility] Health Services UNK - Ambulatory Encounter Mare Murillo [facility] Adult Medicine UNK - Ambulatory Encounter Jeromy Recinos [facility]Logic Mare Carbajal [facility] Adult Medicine UNK - Ambulatory Encounter Jeromy Recinos LinkLogic [facility] Adult Medicine UNK - Ambulatory Encounter Meghna Nash [facility] Adult Medicine UNK - Ambulatory Encounter Fax Status [facility] Services UNK - Ambulatory Encounter Fax Status [facility] Health Services UNK - Ambulatory Encounter Sandra Monge [facility] Adult Medicine UNK - Ambulatory Encounter Sandra Nash [facility] Adult Medicine UNK - Ambulatory Encounter Lashaun Monge [facility] Services UNK - Ambulatory Encounter Sandra Monge LinkLogic [facility] Adult Medicine UNK - Ambulatory Encounter Rinshara Recinos [facility] Adult Medicine UNK - Ambulatory Encounter Jeromy Recinos Trenasofia Manuel [facility] Adult Medicine UNK - Ambulatory Encounter Trenasofia Jackson [facility] Adult Medicine UNK - Ambulatory Encounter Meghna Nash [facility] Adult Medicine UNK - Ambulatory Encounter Bethanyjaswant Jackson [facility] Adult Medicine UNK - Ambulatory Encounter Fax Status [facility] Services UNK - Ambulatory Encounter Fax Status [facility] Services UNK - Ambulatory Encounter Sandra Monge LinkLogic [facility] Adult Medicine UNK - Ambulatory Encounter Sandra Monge [facility] Adult Medicine UNK - Ambulatory Encounter Sandra Quiles [facility] Adult Medicine Increased transaminase level - Ambulatory Encounter Sandra Monge LinkLogic [facility] Adult Medicine UNK - Ambulatory Encounter Sandra Mcgowan [facility] Adult Medicine UNK - Ambulatory Encounter Sandra Monge LinkLogic [facility] Adult Medicine UNK - Ambulatory Encounter Sandra Monge [facility] Adult Medicine UNK - Ambulatory Encounter Sandra Martinez [facility] Adult Medicine Hx Bronchitis acute with bronchospasmHyponatremiaHyperkalemiaHypercalcemia - Ambulatory Encounter Sandra Lanza MedAdherence, [facility] Adult Medicine UNK - Ambulatory Encounter Sandra Lanza MedAdherence, [facility] Adult Medicine UNK - Ambulatory Encounter Cliff Jackson [facility] Adult Medicine UNK - Ambulatory Encounter Sandra Monge [facility] Adult Medicine UNK - Ambulatory Encounter Sandra Monge LinkLogic Cliff Jackson [facility] Adult Medicine UNK - Ambulatory Encounter Sandra Lanza MedAdherence, [facility] Adult Medicine UNK - Ambulatory Encounter Sandra Lomashmisela MedAdherence, [facility] Adult Medicine UNK - Ambulatory Encounter Boni Cristina [facility] Public Health Services UNK - Ambulatory Encounter Jazmin Bullard [facility] Vision UNK - Ambulatory Encounter Jazmin Bullard [facility] Vision UNK - Ambulatory Encounter Sandra Monge LinkLogic [facility] Adult Medicine UNK - Ambulatory Encounter Sandra Monge LinkLogic [facility] Adult Medicine UNK - Ambulatory Encounter Sandra Monge [facility] Adult Medicine UNK - Ambulatory Encounter Sandra Martinez [facility] Adult Medicine Onychomycosis, toenailsImmunization update - Ambulatory Encounter Jazmin Perezers [facility] Vision UNK - Ambulatory Encounter Edgard Martin [facility] Vision UNK - Ambulatory Encounter Edgard Martin [facility] Vision UNK - Ambulatory Encounter Edgard Martin Alexandra Hoffmann [facility] Vision SPECIAL SCREENING EXAMINATION OTH SPEC VIRAL DZ - Ambulatory Encounter Chrissjesus Martin [facility] Vision UNK - Ambulatory Encounter Chriss Martin [facility] Vision UNK - Ambulatory Encounter Chriss Martin [facility] Vision UNK - Ambulatory Encounter Chrissjesus Martin Jazmin Bullard [facility] Vision Myopia - OURegular astigmatism, bilateralPresbyopia - OU - Ambulatory Encounter Sandra Kowalski [facility] Adult Medicine UNK - Ambulatory Encounter Sandra Vargas [facility] Adult Medicine UNK - Ambulatory Encounter Sandra Vargas [facility] Adult Medicine UNK - Ambulatory Encounter Sandra Yancey MedAdherence [facility] Adult Medicine UNK - Ambulatory Encounter Sandra Lanza MedAdherence, [facility] Adult Medicine UNK - Ambulatory Encounter Sandra Lanza MedAdherence, [facility] Adult Medicine UNK - Ambulatory Encounter Sandra Lanza MedAdherence, [facility] Adult Medicine UNK - Ambulatory Encounter Sandra GoldsteinLogkendrick Lanza [facility] Adult Medicine UNK - Ambulatory Encounter Sandra Lanza [facility], [facility] Adult Medicine UNK - Ambulatory Encounter Sandra Lanza MedAdherence, [facility] Adult Medicine UNK - Ambulatory Encounter Khloe Mckeon [facility] UNK - Ambulatory Encounter Khloe Lee [facility] UNK - Ambulatory Encounter Amaury Nath [facility] Adult Medicine UNK - Ambulatory Encounter Amaury Nath [facility] Adult Medicine UNK - Ambulatory Encounter Sandra Monge [facility] Adult Medicine UNK - Ambulatory Encounter Sandra Monge [facility] Adult Medicine UNK - Ambulatory Encounter Sandra Hill [facility] Adult Medicine Hx Latent tuberculosis, s/p INH/B6Hx Bronchitis acute with bronchospasm - Ambulatory Encounter Buck Ledesma [facility] Behavioral Health UNK - Ambulatory Encounter Buck Kowalski [facility] Behavioral Health UNK - Ambulatory Encounter Sandra Vargsa [facility] Adult Medicine UNK - Ambulatory Encounter Sandra Vargas [facility] Adult Medicine UNK - Ambulatory Encounter Sandra Bush [facility] Services UNK - Ambulatory Encounter Buck Ledesma [facility] Behavioral Health UNK - Ambulatory Encounter Buck GoldsteinLogic [facility] Behavioral Health UNK - Ambulatory Encounter Buck Luiiega [facility] Contact Center UNK - Ambulatory Encounter Sandra Michele Yejesus Gloria [facility] Services UNK - Ambulatory Encounter Sandra Monge LinkLogic Leny Yejesus ChildsCastro [facility] Adult Medicine UNK - Ambulatory Encounter Sandra Monge [facility] Adult Medicine UNK - Ambulatory Encounter Sandra Monge [facility] Adult Medicine UNK - Ambulatory Encounter Sandra Kessler [facility] Adult Medicine UNK - Ambulatory Encounter Sandra Monge [facility] Adult Medicine UNK - Ambulatory Encounter Sandra Monge LinkLogic [facility] Adult Medicine UNK - Ambulatory Encounter Nancy [facility] Services UNK - Ambulatory Encounter Khloe Jesus [facility] UNK - Ambulatory Encounter [facility] - Ambulatory Encounter Buck Burris [facility] Behavioral Health UNK - Ambulatory Encounter Sandra Monge LM Adult Medicine UNK - Ambulatory Encounter Sandra Hill [facility] Adult Medicine Hx Latent tuberculosis, s/p [id number] - Ambulatory Encounter Sandra Monge [facility]Logic [facility] Adult Medicine UNK - Ambulatory Encounter Sandra Boss [facility] Adult Medicine UNK - Ambulatory Encounter Marymaritza Callie Ashlee Vince [facility] Health Services UNK - Ambulatory Encounter Garetteamon Chamberlainkaden [facility] Behavioral Health UNK - Ambulatory Encounter Garetteamon Chamberlainkaden LinkLogic [facility] Behavioral Health UNK - Ambulatory Encounter Sandra Monge LinkLogic [facility] Adult Medicine UNK - Ambulatory Encounter Garetteamon Chamberlainkaden Caro [facility] Behavioral Health UNK - Ambulatory Encounter Garetteamon Chamberlainkaden Burris [facility] Behavioral Health UNK - Ambulatory Encounter Lashaun Mckeon [facility] Services UNK - Ambulatory Encounter [facility] UNK - Ambulatory Encounter Garetteamon Keatingjagdeep [facility] Behavioral Health UNK - Ambulatory Encounter Marymaritza Chamberlainkaden Bliss [facility] Behavioral Health UNK - Ambulatory Encounter Sandra GoldsteinLogic [facility] Adult Medicine UNK - Ambulatory Encounter Sandra Monge [facility] Adult Medicine UNK - Ambulatory Encounter Sandra Chen [facility] Adult Medicine Flu shot - Ambulatory Encounter Sandra Monge [facility]Log[facility] LM Adult Medicine UNK - Ambulatory Encounter Sandra Chen LM Adult Medicine UNK - Ambulatory Encounter Sandra Monge LM Adult Medicine UNK - Ambulatory Encounter Sandra Chen [facility] Adult Medicine BMI < 20 - Ambulatory Encounter Sandra Kowalski [facility] Adult Medicine UNK - Ambulatory Encounter Sandra Monge [facility] Services UNK - Ambulatory Encounter Sandra Monge [facility] Adult Medicine UNK - Ambulatory Encounter Sandra Chen [facility] Adult Medicine Immunization updateVitamin D deficiency - Ambulatory Encounter Sandra Monge [facility] Services UNK - Ambulatory Encounter Jason Gilliam [facility] Services UNK - Ambulatory Encounter Sandra Hill [facility] Adult Medicine UNK - Ambulatory Encounter [facility] Care Coordination Desktop [facility] Michelle [facility] Services UNK - Ambulatory Encounter Sandra Monge [facility] Adult Medicine COPDHx Latent tuberculosis, s/p INH/B6 - Ambulatory Encounter [facility] Health[facility] Adult Medicine UNK - Ambulatory Encounter Maximus Yancey [facility] Clinical Specialist UNK - Ambulatory Encounter Maximuskrys Yancey [facility] Clinical Specialist UNK - Ambulatory Encounter Jason Nath [facility] Services UNK - Ambulatory Encounter Sandra GoldsteinLogkendrick [facility] Adult Medicine UNK - Ambulatory Encounter Maximuskrys Yancey [facility] Clinical Specialist UNK - Ambulatory Encounter Sandra Mcgowan [facility] Adult Medicine UNK - Ambulatory Encounter Maximuskrys Yancey [facility] Clinical Specialist UNK - Ambulatory Encounter Sandra Monge [facility] Adult Medicine UNK - Ambulatory Encounter Jasper Keller [facility] Behavioral Health DEPRESSIVE DISORDER, OTHER SPECIFIEDALCOHOL USE DISORDER, MODERATETOBACCO USE DISORDER, MODERATE - Ambulatory Encounter Sandra Jamison [facility] Adult Medicine - Ambulatory Encounter Sandra Monge LinkLogkendrick [facility] Adult Medicine UNK - Ambulatory Encounter Sandra Day [facility] Adult Medicine Screening for hypercholesterolemia - Ambulatory Encounter Adrian Cristina [facility] Public Health Services UNK - Ambulatory Encounter Sandra Monge [facility] Vision UNK VITAL SIGNS Date Observation Value [...] Jackson blood pressure, diastolic 79 mm[Hg] Angi Roseglen " blood pressure, systolic 114 mm[Hg] Angi Juan " oxygen saturation, oximetry 98 % Angi Juan " pulse rate E&M 88 /min Angi Juan " temperature E&M 98.9 [degF] Angi Juan " weight E&M 145.13 lbs. Angi Juan " weight in kilograms E&M 65.97 kg Angi Roseglen " method used to obtain blood pressure automatic Angi Roseglen " Blood Pressure Position 01 sitting Angi Roseglen " blood pressure, site #1 left arm Angi Roseglen " temperature site oral Angi Roseglen " height E&M 72 [in_i] Angi Roseglen " height in centimeters E&M 182.88 cm Angi Roseglen oxygen saturation, oximetry 95 % Angi Roseglen " blood pressure, diastolic 88 mm[Hg] Angi Roseglen " blood pressure, systolic 129 mm[Hg] Angi Juan " pulse rate E&M 96 /min Angi Juan " temperature E&M 98.4 [degF] Angi Roseglen " weight E&M 142 lbs. Angi Roseglen " weight in kilograms E&M 64.55 kg Angi Roseglen " method used to obtain blood pressure automatic Angi Roseglen " Blood Pressure Position 01 sitting Angi Juan " blood pressure, site #1 left arm Angi Roseglen " temperature site oral Angi Roseglen " height E&M 72 [in_i] Angi Roseglen " height in centimeters E&M 182.88 cm [...] Angi Burris " weight E&M 130 lbs. nAgi Burris " weight in kilograms E&M 59.09 [...] Deepikabeatris Chen blood pressure, diastolic 78 mm[Hg] Deepkia Chen " blood pressure, systolic 113 mm[Hg] [...] creatinine, urine, 24 hour 2076 mg/24h [facility]Logic [id number] High " creatinine, random, urine 38.1 mg/dL [...] creatinine, urine, 24 hour 1562 mg/24h [facility] [id number] " creatinine, random, urine 25.4 mg/dL [employer]ic [...] >3.0 " B-12, serum 471 pg/mL [facility] 982-010 8913/04/21 human leukocyte antigen B57 negative Sandra Monge [...] Vaccine Dose Lot Number Status menactra im [facility] [address]-83 sanofi pasteur 0.5 mL [id number] completed HISTORY OF MEDICATION USE Medication Instructions [...] Take 1 tablet orally once daily Nelairina Canasbethanykirill ONDANSETRON 4 MG ORAL TABLET DISINTEGRATING 1 [...] busy though". Not homeless. Born in [facility]. City: [place]. State: [place]. Lives w/ mom and step-father in [place], [facility]. Unemployed since November 2016. Highest education level: bachelor's degree. Not in workforce. Not on disability. 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 Bachelor's degree in [employer] Literature at [employer]. Sex at : Male. Sexual orientation: Palacio. Gender identity: Male. Gender of partner(s): Male. Age of first sexual intercourse: 17. Sexually Active: No. Not sexually active. Dorothy Pineda " social history reviewed E&M reviewed today Dorothy Pineda " assessment of health literacy ([employer] [facility] 2014 Standards, 3C10) Adequate Dorothy Pineda [...] busy though". Not homeless. Born in [facility]. City: [place]. State: [place]. Lives w/ mom and step-father in [address] Unemployed since November 2016. Highest education level: bachelor's degree. Not in workforce. Not on disability. 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 Bachelor's degree in [employer] Literature at [employer]. Sex at : Male. Sexual orientation: [...] busy though". Not homeless. Born in [facility]. City: [place]. State: [place]. Lives w/ mom and step-father in [place], [place]. Unemployed since November 2016. Highest education level: bachelor's degree. Not in workforce. Not on disability. 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 Bachelor's degree in [employer] Literature at [employer]. Sex at : Male. Sexual orientation: Palacio. Gender identity: Male. Gender of partner(s): Male. Age of first sexual intercourse: 17. Sexually Active: No. Not sexually active. Dorothychanda Pineda " social history reviewed E&M reviewed today Dorothy Pineda " assessment of health literacy ([facility] 2014 Standards, 3C10) Adequate Dorothy Pineda " [...] busy though". Not homeless. Born in [facility]. City: [place]. State: [place]. Lives w/ mom and step-father in [place], cats. Unemployed since November 2016. Highest education level: bachelor's degree. Not in workforce. Not on disability. 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 Bachelor's degree in [employer] Literature at [employer]. Sex at : Male. Sexual orientation: [...] E Aaron " assessment of health literacy ([facility] 2014 Standards, 3C10) Adequate Dylon E Aaron [...] though". Not homeless. Born [place]. City: [place]. State: [place]. Lives w/ mom and step-father in [place], 2 cats. Unemployed since November 2016. Highest education level: bachelor's degree. Not in workforce. Not on disability. 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 Bachelor's degree in [employer] Literature at [employer]. Sex at : Male. Sexual orientation: [...] though". Not homeless. Born in [place]. City: [place]. State: [place]. Lives w/ mom and step-father in [place], cats. Unemployed since November 2016. Highest education level: bachelor's degree. Not in workforce. Not on disability. 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 Bachelor's degree in [employer] Literature at [employer]. Sex at : Male. Sexual orientation: Palacio. Gender identity: Male. Gender of partner(s): Male. Age of first sexual intercourse: 17. Sexually Active: No. Not sexually active. Dorothy Pineda " social history reviewed E&M reviewed today Dorothy Pineda " assessment of health literacy ([facility] 2014 Standards, 3C10) Adequate Dorothychanda Pineda " [...] busy though". Not homeless. Born in [facility]. City: [place]. State: [place]. Lives w/ mom and step-father in [place], cats. Unemployed since November 2016. Highest education level: bachelor's degree. Not in workforce. Not on disability. 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 Bachelor's degree in [employer] Literature at [employer]. Sex at : Male. Sexual orientation: Palacio. Gender identity: Male. Gender of partner(s): Male. Age of first sexual intercourse: 17. Sexually Active: No. Not sexually active. Cliff Jackson " social history reviewed E&M reviewed today Sheebarachell Manuel " is there any chance that you could be ? No Cliff Jackson " assessment of health literacy ([facility] 2014 Standards, 3C10) Adequate Cliff Jackson " passive cigarette smoke exposure Yes Cliff Jackson " smoking status current every day smoker Bethanyjaswant Manuel time of call 05/28/2019 1:25 PM [...] busy though". Not homeless. Born in [facility]. City: [place]. State: [place]. Lives w/ mom and step-father in [place], 2 cats. Unemployed since November 2016. Highest education level: bachelor's degree. Not in workforce. Not on disability. 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 Bachelor's degree in [employer] Literature at [employer]. Sex at : Male. Sexual orientation: Palacio. Gender identity: Male. Gender of partner(s): Male. Age of first sexual intercourse: 17. Sexually Active: No. Not sexually active. Cliff Jackson " social history reviewed E&M reviewed today Cliff Jackson " is there any chance that you could be ? No Cliff Jackson " assessment of health literacy ([facility] 2014 Standards, 3C10) Adequate Cliff Jackson " [...] busy though". Not homeless. Born in [facility]. City: [place]. State: [place]. Lives w/ mom and step-father in [place], 2 cats. Unemployed since November 2016. Highest education level: bachelor's degree. Not in workforce. Not on disability. 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 Bachelor's degree in [employer] Literature at [employer]. Sex at : Male. Sexual orientation: Palacio. Gender identity: Male. Gender of partner(s): Male. Age of first sexual intercourse: 17. Sexually Active: No. Not sexually active. Angi Martinez " social history reviewed E&M reviewed today Angi Martinez " sexual orientation Palacio Angi Martinez " is there any chance that you could be ? No Angi Martinez " assessment of health literacy ([facility] 2014 Standards, 3C10) Adequate Angi Martinez " [...] busy though". Not homeless. Born in [facility]. City: [place]. State: [place]. Lives w/ mom and step-father in [place], 2 cats. Unemployed since November 2016. Highest education level: bachelor's degree. Not in workforce. Not on disability. 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 Bachelor's degree in [employer] Literature at [employer]. Sex at : Male. Sexual orientation: Palacio. Gender identity: Male. Gender of partner(s): Male. Age of first sexual intercourse: 17. Sexually Active: No. Not sexually active. Angi Juan " social history reviewed E&M reviewed today Anginava Martinez " sexual orientation Palacio Angi Martinez " is there any chance that you could be ? No Angi Martinez " assessment of health literacy ([facility] 2014 Standards, 3C10) Adequate Angi Martinez " [...] busy though". Not homeless. Born in [facility]. City: [place]. State: [place]. Lives w/ mom and step-father in [place], cats. Unemployed since November 2016. Highest education level: bachelor's degree. Not in workforce. Not on disability. 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 Bachelor's degree in [employer] Literature at [employer]. Sex at : Male. Sexual orientation: [...] Michelle Hill " assessment of health literacy ([facility] 2014 Standards, 3C10) Adequate Michelle Hill " [...] Elizabeth Kessler " assessment of health literacy ([facility] 2014 Standards, 3C10) Adequate Elizabeth Kessler " [...] Michelleadam Hill " assessment of health literacy ([facility] 2014 Standards, 3C10) Adequate Michelle Sergio smoking status current every day smoker Bukc Ledesma smoking status current every day smoker [...] busy though". Not homeless. Born in [facility]. City: [place]. State: [place]. Lives w/ mom and step-father in [place], 2 cats. Unemployed since November 2016. Highest education level: bachelor's degree. Not in workforce. Not on disability. 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 Bachelor's degree in [employer] Literature at [employer]. Sex at : Male. Sexual orientation: [...] Deepika Chen " assessment of health literacy ([facility] 2014 Standards, 3C10) Adequate Deepika Chen Exercise [...] busy though". Not homeless. Born in [facility]. City: [place]. State: [place]. Lives w/ mom and step-father in [place], [facility]. Unemployed since November 2016. Highest education level: bachelor's degree. Not in workforce. Not on disability. 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 Bachelor's degree in [employer] Literature at [employer]. Sex at : Male. Sexual orientation: [...] Deepika Chen " assessment of health literacy ([facility] 2014 Standards, 3C10) Adequate Deepika Gustavo Exercise [...] busy though". Not homeless. Born in [facility]. City: [place]. State: [place]. Lives w/ mom and step-father in [place], cats. Unemployed since November 2016. Highest education level: bachelor's degree. Not in workforce. Not on disability. 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 Bachelor's degree in [employer] Literature at [employer]. Sex at : Male. Sexual orientation: [...] Deepika Jessicarez " assessment of health literacy ([facility] 2014 Standards, 3C10) Adequate Deepika Gustavo social [...] busy though". Not homeless. Born in [facility]. City: [place]. State: [place]. Lives w/ mom and step-father in [place], 2 cats. Unemployed since November 2016. Highest education level: bachelor's degree. Not in workforce. Not on disability. 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 Bachelor's degree in [employer] Literature at [employer]. Sex at : Male. Sexual orientation: [...] assessment Lives w/ mom and step-father in [place], [facility]. Jasper Bobo " social history reviewed E&M reviewed today Sandra Monge " social history E&M Single. Spouse/Partner/Significant Other: n/a. Family is aware and supportive. Not homeless. Born in [facility]. City: [place]. State: [place]. Lives in [place] [facility] [place] and stepdad in [place] in [facility]. Not employed. Highest education level: bachelor's [...] Monge " home/family situation, assessment Lives in [place] [place] and stepdad in [place] in [facility]. Sandra Mariposa " family support Family is aware and supportive. 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 [id number] *Jasper White 0-100% Other [id number] ADVANCE DIRECTIVES Name Date DISCUSSED - NO [...] hypercalcemia - - Est Patient Detailed - 13801 Est Patient Comprehensive Opth - 06988 Est Patient Intermediate Opth - 80271 Est Patient Exp Problem - 93118 Est Patient Detailed - 22046 Est Patient Detailed - 63618 Est Patient Exp Problem - 56243 Est Patient Exp Problem - 89638 Ofc Vst, Est Level III Est Patient Detailed - 73275 First Vx - Ix admin via ID IM or jet injects without counseling by physician Menactra Intramuscular Injectable Vision Vaccines Ordered - Print Consent/Declination Forms Ofc Vst, Est Level IV Xray - Chest - 2 Views - InHouse Handling of specimen for transfer Venipuncture Est Patient Detailed - 84822 Dispensing Visit (UNLIVSTED OPHTHALMOLOGICAL SERVICE/PROCEDURE) INFLUENZA VACCINE QUADRIVALENT 3 YRS PLUS IM Pneumovax Vaccine PPSV23 Admin of Vaccine - Injection - Each Add'l Admin of Vaccine - Injection - 1 Est Patient Detailed - 00697 Progressive lens, per lens Frames, purchases Est Patient Comprehensive Opth - 68299 New Patient Intermediate Opth - 52822 Est Patient Detailed - 66673 Est Patient Detailed - 70130 Est Patient Detailed - 11806 Est Patient Detailed - 91723 Est Patient Exp Problem - 03919 Est Patient Detailed - 63546 Diagnostic evaluation with medical - 46912 INFLUENZA VACCINE QUADRIVALENT 3 YRS PLUS IM Admin of Vaccine - Injection - 1 Est Patient Detailed - 16829 Est Patient Detailed - 50354 Prevnar (PCV13) IM TDAP Admin of Vaccine - Injection - Each Add'l Admin of Vaccine - Injection - 1 Est Patient Well Exam (40 - 64 Yrs) - 31582 [facility] - Psychiatry Diagnostic evaluation (no medical) - 56712 [facility] Assessment - Shirring Tender Primary [facility] Service [facility] Xray - Chest - PA & Lat - InHouse [facility] Handling of specimen for transfer Venipuncture [facility] Assessment ([facility]) New Patient Well Exam (40 - 64 Yrs) - 33637 Handling of specimen for transfer Venipuncture HISTORY OF PROCEDURES Procedure Date Procedure Name Provider Procedure Notes Status Est Patient Comprehensive Opt - 23905 Edgard Martin completed Est Patient Intermediate Opt - 69713 Chriss Martin completed First Vx - Ix [...] 60.00) completed Est Patient Comprehensive Opth - 08467 Edgard Martin completed New Patient Intermediate Opth - 32763 Chriss Martin completed Diagnostic evaluation with medical - 12724 Buck Ledesma completed [facility] Maximus Yancey Time spent with patient: 30 completed Diagnostic evaluation (no medical) - 19961 Jasper Bobo completed [facility] Assessment - [place]ring Tender Jasper Bobo completed [facility] Maximus Yancey Time spent with patient: 30 completed Primary [facility] Service [facility] Maximus Yancey Time spent with patient: 30 completed Venipuncture Sandra Monge completed Venipuncture Sandra Monge completed [facility] No Information Available [facility] No Information Available
--- OUTSIDE RECORDS SUMMARY | 2020-02-03 02:39 | XMS REPORT ---
Author Author Admin, [place] Organization Unknown Address Unknown Phone Unavailable PROBLEMS [...] Provider Location Encounter Diagnosis - Ambulatory Encounter Nelairina Mcgowan LM Adult Medicine UNK - Ambulatory Encounter Nelairina Blackh Nela Canasnth [facility] LM Adult Medicine UNK - Ambulatory Encounter Nelairina Blackh Nela Santiikanth [facility] Services UNK - Ambulatory Encounter [facility]elairina Blackh [facility] - Ambulatory Encounter Nelairina Blakch LM Adult Medicine UNK - Ambulatory Encounter Nelairina Blackh Nela Blackh Dorothy Mcgowan LM Adult Medicine ArthralgiaChronic back pain - Ambulatory Encounter Edgard Martin [facility] Vision UNK - Ambulatory Encounter Edgard Martin [facility] Vision UNK - Ambulatory Encounter Edgard Martin [facility] Vision SPECIAL SCREENING EXAMINATION OTH SPEC VIRAL DZ - Ambulatory Encounter Chriss Martin [facility] Vision UNK - Ambulatory Encounter Chriss Martin [facility] Vision UNK - Ambulatory Encounter Chriss Martin [facility] Vision UNK - Ambulatory Encounter Chrissjesus Barajas [facility] Vision Encounter for exam of eyes and vision- abnormal findings - Ambulatory Encounter Betzaida Dunlap [facility], [facility] Services UNK - Ambulatory Encounter Martha AustinMichaelRonak [facility] Public Health Services UNK - Ambulatory Encounter Nela Schroeder [facility] Adult Medicine UNK - Ambulatory Encounter Nelairina Blackh Nela Blackh [facility] UNK - Ambulatory Encounter Marcelino Leoz Callizo Rosy Ghosh [facility] Behavioral Health UNK - Ambulatory Encounter Nela Lanza [facility], [facility] Adult Medicine UNK - Ambulatory Encounter Nela Alexandre Blackh [facility] Adult Medicine UNK - Ambulatory Encounter Nelairina Pineda [facility] Adult Medicine UNK - Ambulatory Encounter Nela Wayneh Nela Lanza [facility], [facility] Adult Medicine UNK - Ambulatory Encounter Marcelino Leoz Callizo [facility] Behavioral Health UNK - Ambulatory Encounter Marcelino Leoz Callizo Thida Santos [facility] Health UNK - Ambulatory Encounter Nela Missaelnth Nela Schroeder [facility] LM Adult Medicine UNK - Ambulatory Encounter Nela Santiikanth Nela Santiikanth [facility] Adult Medicine UNK - Ambulatory Encounter Nela Missaelnth Nela Walker [facility] Adult Medicine Abscess, axilla, right - Ambulatory En[facility] UNK - Ambulatory Encounter Dorothy Alberts [facility] Contact Center UNK - Ambulatory Encounter Isi Bliss [facility], [facility] Services Contact Center UNK - Ambulatory Encounter Buck Arringtons Isi Isbell [facility] Contact Center UNK - Ambulatory Encounter Nela Canasnth [facility] LM Adult Medicine UNK - Ambulatory Encounter Nela Canasnth [facility] LM Adult Medicine UNK - Ambulatory Encounter Nela Schroeder LM Adult Medicine UNK - Ambulatory Encounter Nela Pineda [facility] Adult Medicine Screening for hypercholesterolemiaImmunization updateFlu shotHx Bronchitis acute with bronchospasmHyponatremiaHyperkalemiaHypercalcemia - Ambulatory Encounter Rinal Recinos [facility] Adult Medicine UNK - Ambulatory Encounter Rinal Recinos Cliff Jackson LM Adult Medicine UNK - Ambulatory Encounter Rinal Recinos [facility] LM Adult Medicine UNK - Ambulatory Encounter Mare Carbajal LM Adult Medicine UNK - Ambulatory Encounter Dorothy Nash [facility], [facility] Services Contact Center UNK - Ambulatory Encounter Rinal Recinos [facility] Adult Medicine UNK - Ambulatory Encounter Cliff Arnold LM Adult Medicine UNK - Ambulatory Encounter Nela Canasbethanykirill Hancockikanth [facility] Adult Medicine UNK - Ambulatory Encounter Nela Canasbethanykirill Rondon Santiikanth [facility] LM Adult Medicine UNK - Ambulatory Encounter Dorothy Travisirina Canasbethanyh Nela Wayneh Srinath Javed [facility] Contact Center UNK - Ambulatory Encounter Nela Canasbethanykirill Rondon Wayneh [facility] Adult Medicine UNK - Ambulatory Encounter Martha Stallworth [facility] Public Health Services UNK - Ambulatory Encounter Nela Canasbethanykirill Rondon Wayneh LM Adult Medicine UNK - Ambulatory Encounter Nela Canasbethanykirill Rondon Alexandre Stallworth [facility] Adult Medicine HIV infectionHepatitis A immunityHepatitis B immunity - Ambulatory Encounter Cliff Napier [facility] Contact Center UNK - [...] Medicine UNK - Ambulatory Encounter Sandra Monge [facility] Adult Medicine UNK - Ambulatory Encounter Sandra Monge [facility] Adult Medicine Osteopenia - Ambulatory Encounter Cliff Jackson [facility] Adult Medicine UNK - Ambulatory Encounter Rinshara Recinos [facility] Adult Medicine UNK - Ambulatory Encounter Destinial Jorje Jackson [facility] Adult Medicine UNK - Ambulatory Encounter Cliff Jackson [facility] Adult Medicine UNK - Ambulatory Encounter Cliff Jackson [facility] Adult Medicine UNK - Ambulatory Encounter Sandra Monge [facility] Rinal Recinos [facility] Adult Medicine UNK - Ambulatory Encounter Sandra Monge [facility] Meghna Arnold [facility] Adult Medicine UNK - Ambulatory Encounter Fax Status [facility] - Ambulatory Encounter Fax Status [facility] UNK - Ambulatory Encounter Fax Status [facility] UNK - Ambulatory Encounter Fax Status [facility] - Ambulatory Encounter Mare Jamison Rinal Recinos Ragini Murillo [facility] Adult Medicine UNK - Ambulatory Encounter Rinal Recinos LinkLogkendrick Carbajal [facility] Adult Medicine UNK - Ambulatory Encounter Rinshara Recinos [facility] Adult Medicine UNK - Ambulatory Encounter Meghna Nash [facility] Adult Medicine UNK - Ambulatory Encounter Fax Status [employer] [facility] Services UNK - Ambulatory Encounter Fax Status [facility] UNK - Ambulatory Encounter Sandra Monge [facility] Adult Medicine UNK - Ambulatory Encounter Sandra Rubirachell Nash [facility] Adult Medicine UNK - Ambulatory Encounter Lashaun Monge [facility] Services UNK - Ambulatory Encounter Sandra Monge [facility] Adult Medicine UNK - Ambulatory Encounter Jeromy Recinos [facility] Adult Medicine UNK - Ambulatory Encounter Destinial Jorje Jackson [facility] Adult Medicine UNK - Ambulatory Encounter Cliff Jackson [facility] Adult Medicine UNK - Ambulatory Encounter Meghna Nash [facility] Adult Medicine UNK - Ambulatory Encounter Cliff Jackson [facility] Adult Medicine UNK - Ambulatory Encounter Fax Status [employer] [facility] Services UNK - Ambulatory Encounter Fax Status [employer] [facility] Services UNK - Ambulatory Encounter Sandra Monge [facility] Adult Medicine UNK - Ambulatory Encounter Sandra Monge [facility] Adult Medicine UNK - Ambulatory Encounter Sandra Coffman Charity Frederick Kb [facility] Adult Medicine Increased transaminase level - Ambulatory Encounter Sandra GoldsteinLogkendrick [facility] Adult Medicine UNK - Ambulatory Encounter Sandra Mcgowan [facility] Adult Medicine UNK - Ambulatory Encounter Sandra GoldsteinLogkendrick [facility] Adult Medicine UNK - Ambulatory Encounter Sandra Monge [facility] Adult Medicine UNK - Ambulatory Encounter Sandra Tellez Ausra Angi Martinez [facility] Adult Medicine Hx Bronchitis acute with bronchospasmHyponatremiaHyperkalemiaHypercalcemia - Ambulatory Encounter Sandra Lanza [facility]herence, [facility] Adult Medicine UNK - Ambulatory Encounter Sandra Lanaz [facility], [facility] Adult Medicine UNK - Ambulatory Encounter Cliff Jackson [facility] Adult Medicine UNK - Ambulatory Encounter Sandra Monge [facility] Adult Medicine UNK - Ambulatory Encounter Sandra GoldsteinLogkendrick Jackson [facility] Adult Medicine UNK - Ambulatory Encounter Sandra Lanza Med[facility]herence, [facility] Adult Medicine UNK - Ambulatory Encounter Sandra Lanza MedAdherence, [facility] Adult Medicine UNK - Ambulatory Encounter Boni Cristina [facility] Public Health Services UNK - Ambulatory Encounter Jazmin Bullard [facility] Vision UNK - Ambulatory Encounter Jazmin Bullard [facility] Vision UNK - Ambulatory Encounter Sandra Monge [facility] Adult Medicine UNK - Ambulatory Encounter Sandra Monge [facility] Adult Medicine UNK - Ambulatory Encounter Sandra Monge [facility] Adult Medicine UNK - Ambulatory Encounter Sandra Martinez [facility] Adult Medicine Onychomycosis, toenailsImmunization update - Ambulatory Encounter Jazmin Bullard [facility] Vision UNK - Ambulatory Encounter Edgard Martin [facility] Vision UNK - Ambulatory Encounter Edgard Martin [facility] Vision UNK - Ambulatory Encounter Edgard Hoffmann [facility] Vision SPECIAL SCREENING EXAMINATION OTH SPEC VIRAL DZ - Ambulatory Encounter Chrissjesus Martin [facility] Vision UNK - Ambulatory Encounter Chrissjesus Martin [facility] Vision UNK - Ambulatory Encounter Chriss Martin [facility] Vision UNK - Ambulatory Encounter Chrissjesus Martin Jazmin Bullard [facility] Vision Myopia - OURegular astigmatism, bilateralPresbyopia - OU - Ambulatory Encounter Sandra GoldsteinLogic [facility] Adult Medicine UNK - Ambulatory Encounter Sandra Haro Vargas [facility] Adult Medicine UNK - Ambulatory Encounter Sandra Vargas [facility] Adult Medicine UNK - Ambulatory Encounter Sandra Yancey MedAdherence [facility] Adult Medicine UNK - Ambulatory Encounter Sandra Lanza MedAdherence, [facility] Adult Medicine UNK - Ambulatory Encounter Sandra Lanza MedAdherence, [facility] Adult Medicine UNK - Ambulatory Encounter Sandra Lanza MedAdherence, [facility] Adult Medicine UNK - Ambulatory Encounter Sandra Lanza MedAdherence, [facility] Adult Medicine UNK - Ambulatory Encounter Sandra Lanza [facility]herence, [facility] Adult Medicine UNK - Ambulatory Encounter Sandra Lanza MedAdherence, [facility] Adult Medicine UNK - Ambulatory Encounter Khloe Mckeon [facility] UNK - Ambulatory Encounter Khloe Lee [facility] UNK - Ambulatory Encounter Amaury Nath [facility] Adult Medicine UNK - Ambulatory Encounter Amaury Nath [facility] Adult Medicine UNK - Ambulatory Encounter Sandra Monge [facility] Adult Medicine UNK - Ambulatory Encounter Sandra Monge [facility] Adult Medicine UNK - Ambulatory Encounter Sandra Hill [facility] Adult Medicine Hx Latent tuberculosis, s/p INH/B6Hx Bronchitis acute with bronchospasm - Ambulatory Encounter Buck Ledesma [facility] Behavioral Health UNK - Ambulatory Encounter Buck Kowalski [facility] Health UNK - Ambulatory Encounter Sandra Vargas LM Adult Medicine UNK - Ambulatory Encounter Sandra Monge LinkLogkendrick Vargas [facility] Adult Medicine UNK - Ambulatory Encounter Sandra Bush [facility] Services UNK - Ambulatory Encounter Buck Ledesma C Behavioral Health UNK - Ambulatory Encounter Buck Ledesma [facility] Behavioral Health UNK - Ambulatory Encounter Buck Solares [facility] Contact Center UNK - Ambulatory Encounter Sandra Camarena [facility] Services UNK - Ambulatory Encounter Sandra Monge [facility] Leny Nicol Castro [facility] Adult Medicine UNK - Ambulatory Encounter Sandra Monge [facility] Adult Medicine UNK - Ambulatory Encounter Sandra Monge [facility] Adult Medicine UNK - Ambulatory Encounter Sandra Kessler [facility] Adult Medicine UNK - Ambulatory Encounter Sandra Monge LM Adult Medicine UNK - Ambulatory Encounter Sandra GoldsteinLogkendrick LM Adult Medicine UNK - Ambulatory Encounter Nancy [facility] Services UNK - Ambulatory Encounter Khloe Lee [facility] Services UNK - Ambulatory Encounter Nancy GoldsteinLogic [facility] Adult Medicine UNK - Ambulatory Encounter Buck Burris [facility] Behavioral Health UNK - Ambulatory Encounter Sandra Monge [facility] Adult Medicine UNK - Ambulatory Encounter Sandra Hill [facility] Adult Medicine Hx Latent tuberculosis, s/p INH/[id number] - Ambulatory Encounter Sandra Monge [facility] Adult Medicine UNK - Ambulatory Encounter Sandra Varelao [facility] Adult Medicine UNK - Ambulatory Encounter Buck Clarke [facility] Services UNK - Ambulatory Encounter Buck Bulmarokaden [facility] Behavioral Health UNK - Ambulatory Encounter Buck GoldsteinLogic [facility] UNK - Ambulatory Encounter Sandra Monge LinkLogic [facility] Adult Medicine UNK - Ambulatory Encounter Buck Caro [facility] Behavioral Health UNK - Ambulatory Encounter Buck Whitley Burris [facility] Health UNK - Ambulatory Encounter Lashaun Mckeon [facility] Services UNK - Ambulatory Encounter [facility] UNK - Ambulatory Encounter Buck Bulmarokaden [facility] Health UNK - Ambulatory Encounter Buck Bliss [facility] UNK - Ambulatory Encounter Sandra Monge [employer] Adult Medicine UNK - Ambulatory Encounter Sandra Monge LM Adult Medicine UNK - Ambulatory Encounter Sandra Chen [facility] Adult Medicine Flu shot - Ambulatory Encounter Sandra GoldsteinLogkendrick [facility] Adult Medicine UNK - Ambulatory Encounter Sandra Chen [facility] Adult Medicine UNK - Ambulatory Encounter Sandra Monge [facility] Adult Medicine UNK - Ambulatory Encounter Sandra Jessicarez [facility] Adult Medicine BMI < 20 - Ambulatory Encounter Sandra Monge [facility] Adult Medicine UNK - [facility] - Ambulatory Encounter Sandra Monge [facility] Adult Medicine UNK - Ambulatory Encounter Sandra Chen [facility] Adult Medicine Immunization updateVitamin D deficiency - [facility] - Ambulatory Encounter Jason Gilliam [facility] Services UNK - Ambulatory Encounter Sandra Hill [facility] Adult Medicine UNK - Ambulatory Encounter [facility] Care Coordination Desktop Dex Hill [facility] Services UNK - Ambulatory Encounter Sandra Monge [facility] Adult Medicine COPDHx Latent tuberculosis, s/p INH/B6 - Ambulatory Encounter Sandra Kowalski [facility] Adult Medicine UNK - Ambulatory Encounter Maximus Yancey [facility] Inventory Control Associate UNK - Ambulatory Encounter Maximus Yancey [facility] Inventory Control Associate UNK - Ambulatory Encounter Jason Nolenles Idaliakirill Nath [facility] Services UNK - Ambulatory Encounter Sandra Kowalski [facility] Adult Medicine UNK - Ambulatory Encounter Maximus Yancey [facility] Inventory Control Associate UNK - Ambulatory Encounter Sandra Mcgowan [facility] Adult Medicine UNK - Ambulatory Encounter Maximus Yancey [facility] Inventory Control Associate UNK - Ambulatory Encounter Sandra Monge [facility] Adult Medicine UNK - Ambulatory Encounter Jasper Keller [facility]al Health DEPRESSIVE DISORDER, OTHER SPECIFIEDALCOHOL USE DISORDER, MODERATETOBACCO USE DISORDER, MODERATE - Ambulatory Encounter Sandra Jamison [facility] Adult Medicine - Ambulatory Encounter Sandra Kowalski [facility] Adult Medicine UNK - Ambulatory Encounter Sandra Day [facility] Adult Medicine Screening for hypercholesterolemia - Ambulatory Encounter Adrian Cristina [facility] Public Health Services UNK - Ambulatory Encounter [facility] Hospit[facility] Vision UNK VITAL SIGNS Date Observation Value Provider BP diastolic #1 102 mm[Hg] Nela Shrikanth " BP systolic #1 162 mm[Hg] Nela Santiikaanthony " blood pressure, diastolic, second observation 100 mm[Hg] Nela Shrikanth " blood pressure, systolic, second observation 150 mm[Hg] Nela Shrikantkirill " blood pressure, diastolic 100 mm[Hg] Nela Shrikanth " blood pressure, systolic 150 mm[Hg] Nela Shrikanth " oxygen saturation, oximetry 96 % Dorothy Pineda " pulse rate E&M 103 /min Dorothy Pineda " temperature E&M 98.4 [degF] Dorothychanda Pineda " weight E&M 139.38 lbs. Dorothychanda Pineda " weight in kilograms E&M 63.35 kg Dorothybarby Pineda " method used to obtain blood pressure automatic Dorothy Edwin " Blood Pressure Position 01 sitting Dorothychanda Pineda " blood pressure, site #1 left [...] Rosy Ghosh " weight E&M 137.38 lbs. Rosyelsa Ghosh " weight in kilograms E&M 62.45 kg Rosy Weber " height E&M 72 [in_i] Rosy Ghosh " height in centimeters E&M 182.88 cm Rosy Ghosh oxygen saturation, oximetry 98 % Dorothy Edwin " pulse rate E&M 72 /min Dorothy Edwin " blood pressure, diastolic 89 mm[Hg] Dorothychanda Pineda " blood pressure, systolic 134 mm[Hg] Dorothy Edwin " temperature E&M 98.7 [degF] Dorothychanda Pineda " weight E&M 138.13 lbs. Dorothy Edwin " weight in kilograms E&M 62.79 kg Dorothy Edwin " method used to obtain blood pressure automatic Dorothy Edwin " Blood Pressure Position 01 sitting Dorothychanda Pineda " blood pressure, site #1 left arm Dorothybarby Pineda " temperature site oral Dorothychanda Pineda " [...] E Aaron " temperature site oral Dylon Belle Walker " weight E&M 141 lbs. Dylon Belle SuárezAaron " weight in kilograms E&M 64.09 kg Dylon Belle Walker " height E&M 72 [in_i] Dylon Belle Aaron " height in centimeters E&M 182.88 cm Dylon Walker blood pressure, diastolic 96 mm[Hg] Dorothy Pineda " blood pressure, systolic 125 mm[Hg] Dorothy Edwin " oxygen saturation, oximetry 98 % Dorothy Pineda " pulse rate E&M 82 /min Dorothy Pineda " temperature E&M 98.5 [degF] Dorothy Edwin " weight E&M 139 lbs. Dorothy Pineda [...] " blood pressure, site #1 right arm Sheebarachell Manuel " Blood Pressure Position 01 sitting Cliff Jackson " method used to obtain blood pressure automatic Cliff Jackson " temperature site oral Cliff Jackson " height E&M 72 [in_i] Cliff Jackson " height in centimeters E&M 182.88 cm Cliff Jackson temperature site oral Kari Crawford " oxygen saturation, oximetry 98 % Kair Crawford " pulse rate E&M 88 /min [...] Jackson blood pressure, diastolic 79 mm[Hg] Angi Juan " blood pressure, systolic 114 mm[Hg] Angi Juan " oxygen saturation, oximetry 98 % Angi Corona " pulse rate E&M 88 /min Angi Corona " temperature E&M 98.9 [degF] Angi Juan " weight E&M 145.13 lbs. Angi Juan " weight in kilograms E&M 65.97 kg Angi Juan " method used to obtain blood pressure automatic Angi Corona " Blood Pressure Position 01 sitting Angi Juan " blood pressure, site #1 left arm Angi Juan " temperature site oral Angi Corona " height E&M 72 [in_i] Angi Juan " height in centimeters E&M 182.88 cm Angi Corona oxygen saturation, oximetry 95 % Angi Corona " blood pressure, diastolic 88 mm[Hg] Angi Juan " blood pressure, systolic 129 mm[Hg] Angi Juan " pulse rate E&M 96 /min Angi Juan " temperature E&M 98.4 [degF] Angi Corona " weight E&M 142 lbs. Angi Juan " weight in kilograms E&M 64.55 kg Angi Corona " method used to obtain blood pressure automatic Angi Corona " Blood Pressure Position 01 sitting Angi Juan " blood pressure, site #1 left arm Angi Corona " temperature site oral Angi Corona " height E&M 72 [in_i] Angi Juan " height in centimeters E&M 182.88 cm Angi Corona blood pressure, diastolic 62 mm[Hg] Michelle Hill [...] Hill oxygen saturation, oximetry 99 % Elizabeth Checo " blood pressure, diastolic 64 mm[Hg] Elizabeth [...] blood pressure, site #1 right arm Isi Balbleon " blood pressure, diastolic 75 mm[Hg] Isichanda Bliss " blood pressure, systolic 110 mm[Hg] Isichanda Bliss " pulse rate E&M 120 /min Isi Ruthy " weight E&M 136 lbs. Isi Bliss " weight in kilograms E&M 61.82 kg Isi Bliss " height E&M 72 [in_i] Isichanda Bliss " height in centimeters E&M 182.88 [...] Observation Value Provider Reference Range Interpretation Location c-reactive protein, quantitative, serum <1 mg/L [facility] 0-10 " erythrocyte sedimentation rate 2 mm/h [facility] 0-15 " uric acid, serum 6.2 mg/dL [facility] 3.7-8.6 " rheumatoid factor 11.5 [iU]/mL [facility] 0.0-13.9 HIV-1RNA, serum, by PCR, quantitative <20 copies/mL [...] creatinine, urine, 24 hour 2076 mg/24h [facility] [id number] High " creatinine, random, urine 38.1 mg/dL [...] creatinine, urine, 24 hour 1562 mg/24h [facility] [id number] " creatinine, random, urine 25.4 mg/dL [facility] [...] X10E3/UL [facility] 3.4-10.8 " CD4/CD8 ratio 0.97 [facility] 0.92-3.72 " T-suppressor cells (CD8) as percent of blood lymphocytes 47.9 % [facility] 12.0-35.5 High " absolute CD8 1293 [phone] High " T-helper cells (CD4) as percent of blood lymphocytes 46.6 % [facility] 30[facility]8-58.5 " T-helper cells (CD4) count 1258 /UL [facility] [phone] vitamin D 25-hydroxy, serum 15.4 ng/mL [facility] 30.0-100.0 Low " rapid plasma reagin antibody, serum Non Reactive [facility] Non Reactive " HIV-1RNA, serum, by PCR, quantitative 30 /mL [facility] " LDL cholesterol, serum 78 mg/dL [facility] [...] >3.0 " B-12, serum 471 pg/mL [facility] [phone]/04/21 human leukocyte antigen B57 negative Sandra Moneg hepatitis A antibody, total Positive LinkLogic Negative [...] Dose Lot Number Status joleneact im [facility] [id number] sanofi pasteur 0.5 mL [id number] completed HISTORY OF MEDICATION USE Medication Instructions Dates Provider Comments MELOXICAM 7.5 MG ORAL TABLET Take 1 tablet orally once daily as needed Nela Shrikanth DRYSOL 20 % EXTERNAL SOLUTION Apply once daily Neal Shrikanth HYPERCARE 15 % EXTERNAL SOLUTION Apply once daily as needed Nela Hancockikabethanyh PROZAC 20 MG ORAL CAPSULE Take one [...] very busy though". Not homeless. Born in [facility]. City: [place]. State: [place]. Lives w/ mom and step-father in [place], 2 cats. Unemployed since November 2016. Highest education level: bachelor's degree. Not in workforce. Not on disability. 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 Bachelor's degree in [place] [employer] at [employer]. Sex at : Male. Sexual orientation: Palacio. Gender identity: Male. Gender of partner(s): Male. Age of first sexual intercourse: 17. Sexually Active: No. Not sexually active. Dorothy Pineda " social history reviewed E&M reviewed today Dorothy Pineda " assessment of health literacy ([facility] 2014 Standards, 3C10) Adequate Dorothy Pineda " passive cigarette smoke exposure No Dorothy Pineda " smoking status current every day smoker Dorothy Pineda sexual orientation Palacio Jess Karl time of call 11/15/2019 1:21 PM Martha Stallworth drug use, illicit Previously Marcelino Li Calljudah " alcohol use Currently Marcelino Leoz Calltyo " smoking status current every day smoker [...] very busy though". Not homeless. Born in [facility]. City: [place]. State: [place]. Lives w/ mom and step-father in [place], cats. Unemployed since November 2016. Highest education level: bachelor's degree. Not in workforce. Not on disability. 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 Bachelor's degree in [place] [employer] at [employer]. Sex at : Male. Sexual orientation: Palacio. Gender identity: Male. Gender of partner(s): Male. Age of first sexual intercourse: 17. Sexually Active: No. Not sexually active. Marcelino Leoz Callizo " social history reviewed E&M reviewed today Marcelino Farahizo drug use, illicit Previously Dorothy Edwin " [...] though". Not homeless. Born in [place]. City: [place]. State: [place]. Lives w/ mom and step-father in [place], 2 cats. Unemployed since November 2016. Highest education level: bachelor's degree. Not in workforce. Not on disability. 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 Bachelor's degree in [place] [employer] at [employer]. Sex at : Male. Sexual orientation: Palacio. Gender identity: Male. Gender of partner(s): Male. Age of first sexual intercourse: 17. Sexually Active: No. Not sexually active. Dorothy Edwin " social history reviewed E&M reviewed today Dorothychanda Pineda " assessment of health literacy ([facility] 2014 Standards, 3C10) Adequate Dorothy Edwin " passive cigarette smoke exposure No Dorothychanda Pineda " smoking status current every day smoker Dorothychanda Pineda drug use, illicit Previously Marcelino Li Bruceo " alcohol use Currently Marcelino Li Farahizo " smoking status current every day smoker Marcelino Leolga Callizo " social history E&M Single. Single. Parents when pt was age 16, mother and father both remarried. Relationship with father "I love him but don't like him... we talk on phone 1x a week". Relationship with mother and step-father "perfect and very good". One younger brother, "get along well, he is very busy though". Not homeless. Born in [facility]. City: [place]. State: [place]. Lives w/ mom and step-father in [place], 2 cats. Unemployed since November 2016. Highest education level: bachelor's degree. Not in workforce. Not on disability. 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 Bachelor's degree in [place] [employer] at [employer]. Sex at : Male. Sexual orientation: Palacio. Gender identity: Male. Gender of partner(s): Male. Age of first sexual intercourse: 17. Sexually Active: No. Not sexually active. Marcelino Flores " social history reviewed E&M reviewed today Marcelino Flores " sexual orientation Palacio Dylon Walker " is there any chance that you could be ? No Dylon Walker " assessment of health literacy ([facility] 2014 Standards, 3C10) Adequate Dylon Walker " [...] very busy though". Not homeless. Born in [facility]. City: [place]. State: [place]. Lives w/ mom and step-father in [place], cats. Unemployed since November 2016. Highest education level: bachelor's degree. Not in workforce. Not on disability. 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 Bachelor's degree in [place] [employer] at [employer]. Sex at : Male. Sexual orientation: Palacio. Gender identity: Male. Gender of partner(s): Male. Age of first sexual intercourse: 17. Sexually Active: No. Not sexually active. Dylon Walker " social history reviewed E&M reviewed today Dylon Walker " Exercise Program Referral T Dylon Walker " Weight Management Counseling Provided Mendez [...] very busy though". Not homeless. Born in [facility]. City: [place]. State: [place]. Lives w/ mom and step-father in [place], cats. Unemployed since November 2016. Highest education level: bachelor's degree. Not in workforce. Not on disability. 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 Bachelor's degree in [place] [employer] at [employer]. Sex at : Male. Sexual orientation: Palacio. Gender identity: Male. Gender of partner(s): Male. Age of first sexual intercourse: 17. Sexually Active: No. Not sexually active. Dorothy Edwin " social history reviewed E&M reviewed today Dorothy Edwin " assessment of health literacy ([facility] 2014 Standards, 3C10) Adequate Dorothy Edwin " passive cigarette smoke exposure No Dorothy Edwin " smoking status current every day smoker Dorothychanda Pineda drug use, illicit Previously Cliff Jackson " alcohol use Currently Trenasofia Jackson " social history E&M Single. Single. Parents when pt was age 16, mother and father both remarried. Relationship with father "I love him but don't like him... we talk on phone 1x a week". Relationship with mother and step-father "perfect and very good". One younger brother, "get along well, he is very busy though". Not homeless. Born in [facility]. City: [place]. State: [place]. Lives w/ mom and step-father in [place], cats. Unemployed since November 2016. Highest education level: bachelor's degree. Not in workforce. Not on disability. 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 Bachelor's degree in [place] [employer] at [employer]. Sex at : Male. Sexual orientation: Palacio. Gender identity: Male. Gender of partner(s): Male. Age of first sexual intercourse: 17. Sexually Active: No. Not sexually active. Cliff Jackson " social history reviewed E&M reviewed today Bethanyjaswant Manuel " is there any chance that you could be ? No Cliff Jackson " assessment of health literacy ([facility] 2014 Standards, 3C10) Adequate Bethanyjaswant Manuel " passive cigarette smoke exposure Yes Cliff [...] PM Leonor Napier drug use, illicit Previously Trenasofia Jackson " alcohol use Currently Trenasofia Jackson " social history E&M Single. Single. Parents when pt was age 16, mother and father both remarried. Relationship with father "I love him but don't like him... we talk on phone 1x a week". Relationship with mother and step-father "perfect and very good". One younger brother, "get along well, he is very busy though". Not homeless. Born in [facility]. City: [place]. State: [place]. Lives w/ mom and step-father in [place], 2 cats. Unemployed since November 2016. Highest education level: bachelor's degree. Not in workforce. Not on disability. 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 Bachelor's degree in [place] [employer] at [employer]. Sex at : Male. Sexual orientation: Palacio. Gender identity: Male. Gender of partner(s): Male. Age of first sexual intercourse: 17. Sexually Active: No. Not sexually active. Cliff Jackson " social history reviewed E&M reviewed today Bethanyjaswant Manuel " is there any chance that you could be ? No Cliff Jackson " assessment of health literacy ([facility] 2014 Standards, 3C10) Adequate Cliff Jackson " passive cigarette smoke exposure Yes Cliff Jackson " smoking status current every day smoker Cliff Jackson " smoking, advice to quit Yes Sandra Monge " Exercise Program Referral Mendez Monge " Weight [...] very busy though". Not homeless. Born in [facility]. City: [place]. State: [place]. Lives w/ mom and step-father in [place], cats. Unemployed since November 2016. Highest education level: bachelor's degree. Not in workforce. Not on disability. 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 Bachelor's degree in [place] [employer] at [employer]. Sex at : Male. Sexual orientation: Palacio. Gender identity: Male. Gender of partner(s): Male. Age of first sexual intercourse: 17. Sexually Active: No. Not sexually active. Angi Martinez " social history reviewed E&M reviewed today Angi Corona " sexual orientation Palacio Angi Juan " is there any chance that you could be ? No Angi Martinez " assessment of health literacy ([facility] 2014 Standards, 3C10) Adequate Angi [...] very busy though". Not homeless. Born in [facility]. City: [place]. State: [place]. Lives w/ mom and step-father in [place], 2 cats. Unemployed since November 2016. Highest education level: bachelor's degree. Not in workforce. Not on disability. 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 Bachelor's degree in [place] [employer] at [employer]. Sex at : Male. Sexual orientation: Palacio. Gender identity: Male. Gender of partner(s): Male. Age of first sexual intercourse: 17. Sexually Active: No. Not sexually active. Angi Martinez " social history reviewed E&M reviewed today Angi Martinez " sexual orientation Palacio Angi Martinez " is there any chance that you could be ? No Angi Martinez " assessment of health literacy ([facility] 2014 Standards, 3C10) Adequate Angi [...] very busy though". Not homeless. Born in [facility]. City: [place]. State: [place]. Lives w/ mom and step-father in [place], 2 cats. Unemployed since November 2016. Highest education level: bachelor's degree. Not in workforce. Not on disability. 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 Bachelor's degree in [place] [employer] at [employer]. Sex at : Male. Sexual orientation: Palacio. [...] Michelle Hill " assessment of health literacy ([facility] 2014 Standards, 3C10) Adequate Michelle [...] Elizabethnila Wolffley " assessment of health literacy ([facility] 2014 Standards, 3C10) Adequate Elizabeth Kessler " Exercise Program Referral T Elizabeth Kessler " Weight Management Counseling Provided Mendez Kessler " Nutrition intervention Mnedez Kessler smoking status current every day smoker [...] Michelleadam Hill " assessment of health literacy ([facility] 2014 Standards, 3C10) Adequate Michelleadam Hill smoking status current every day smoker Buck Bulmaroijagdeep smoking status current every day smoker Garetteamon Bulmaroijagdeep alcohol use, number maximum drinks per occasion [...] Deepika Jessicarez " alcohol use Currently Deepika Valentinoierrez " [...] very busy though". Not homeless. Born in [facility]. City: [place]. State: [place]. Lives w/ mom and step-father in [place], cats. Unemployed since November 2016. Highest education level: bachelor's degree. Not in workforce. Not on disability. 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 Bachelor's degree in [place] [employer] at [employer]. Sex at : Male. Sexual orientation: Palacio. [...] Deepika Valentinoierrez " assessment of health literacy ([facility] 2014 Standards, 3C10) Adequate Deepika Chen [...] very busy though". Not homeless. Born in [facility]. City: [place]. State: [place]. Lives w/ mom and step-father in [place], 2 cats. Unemployed since November 2016. Highest education level: bachelor's degree. Not in workforce. Not on disability. 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 Bachelor's degree in [place] [employer] at [employer]. Sex at : Male. Sexual orientation: Palacio. Gender identity: Male. Gender of partner(s): Male. Age of first sexual intercourse: 17. Sexually Active: No. Not sexually active. Deepika Valentinoierrez " social history reviewed E&M reviewed today Deepika Valentinoierrez " drug use, illicit Previously Deepika Chen " alcohol use Currently Deepika Chen " sexual orientation Palacio Deepika Valentinoierrez " passive cigarette smoke exposure No Deepika Chen " smoking, advice to quit Yes Deepika Valentinoierrez " smoking status current every day smoker Deepika Jessicarez " assessment of health literacy ([facility] 2014 Standards, 3C10) Adequate Deepika [...] very busy though". Not homeless. Born in [facility]. City: [place]. State: [place]. Lives w/ mom and step-father in [place], 2 cats. Unemployed since November 2016. Highest education level: bachelor's degree. Not in workforce. Not on disability. 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 Bachelor's degree in [place] [employer] at [employer]. Sex at : Male. Sexual orientation: Palacio. [...] Deepika Jessicarez " assessment of health literacy ([facility] 2014 Standards, 3C10) Adequate Deepika [...] very busy though". Not homeless. Born in [facility]. City: [place]. State: [place]. Lives w/ mom and step-father in [place], cats. Unemployed since November 2016. Highest education level: bachelor's degree. Not in workforce. Not on disability. 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 Bachelor's degree in [place] [employer] at [employer]. Sex at : Male. Sexual orientation: Palacio. Gender identity: Male. Gender of partner(s): Male. Age of first sexual intercourse: 17. Sexually Active: No. Not sexually active. Jasper Bobo" drug use, illicit Previously Jasper Bobo" alcohol use, number maximum drinks per occasion 4-5 beers Jasper Bobo " alcohol use, frequency daily Jasper Bobo " alcohol use Currently Jasper Bboo " current cigarette packs per day 1-1.5 [...] assessment Lives w/ mom and step-father in [place], 2 cats. Jasper Bobo " social history reviewed E&M reviewed today Sandra Monge " social history E&M Single. Spouse/Partner/Significant Other: n/a. Family is aware and supportive. Not homeless. Born in [facility]. City: [place]. State: [place]. Lives in [facility] [place] and stepdad in [place] in [facility]. Not employed. Highest [...] assessment Lives in Mom and stepdad in [place] in [facility]. Sandra Monge " family support Family is aware and supportive. Sandra Monge " smoking, advice to quit Yes Sandra Monge " assessment of health literacy ([facility] 2014 Standards, 3C10) Adequate [...] oriented to person, place, and time Edgard Nohemi Mario mental status assessment, judgment fair Marcelino Leoz [...] oriented to situation, oriented to reality Marcelinojoaquin Farahizo " hallucinations none Marcelino Leoz Callizo " thought content (mental status exam) (E&M) lucid Marcelino Farahizo " mental status assessment, process able to abstract, goal-directed, logical Marcelino Leoz Callizo " mental status assessment, sensorium alert, attentive, clear Marcelino Leoz Callizo " affect (mental status exam) congruent, euthymic, normal intensity, normal range, reactive Marcelino Leoz Callizo " mood (mental status exam) pleasant Marcelino Breanneoz Callizo " mental status assessment, speech activity normal flow, normal pace, normal pressure, normal rate, normal tone, normal volume, spontaneous, loud Marcelinojoaquin Jefferson Callizo " mental status assessment, motor activity [...] looks like stated age, neat Garettmaritza Chamberlainkaden mood (mental status exam) pleasant Garettmaritza Ledesma " anxiety worry a lot, sleep disturbance Garettmaritza Ledesma " mental status assessment, judgment fair Garettmaritza Ledesma " insight (mental status exam) fair Garettmaritza Ledesma " Mental Status Exam: intelligence adequate fund of information, intact memory processes, oriented to person, oriented to place, oriented to time, oriented to situation, oriented to reality Garettmaritza Ledesma " hallucinations none [facility] " thought content (mental status exam) [...] Covered democrat ID *Jasper White 0-100% Other [id number] Sliding Fee - Cat 1 [employer] [id number] *Jasper White 0-100% Other Sliding Fee - Cat 1 [employer] insurance company *Jasper White 0-100% Other [id number] *Jasper White 0-100% Other Sliding Fee - Cat 1 [employer] [id number] *Jasper White 0-100% Other [id number] ADVANCE DIRECTIVES Name Date DISCUSSED - NO [...] CD4/CD8 Ratio Profile - - - - - hypercalcemia - - Xray - Spine - Lumboacral - InHouse Est Patient Detailed - 41216 Est Patient Comprehensive Opth - 89818 Est Patient Intermediate Opth - 40409 Est Patient Exp Problem - 99567 Est Patient Detailed - 19780 Est Patient Detailed - 20234 Est Patient Exp Problem - 54114 Est Patient Exp Problem - 03916 Ofc Vst, Est Level III Est Patient Detailed - 64731 First Vx - Ix admin via ID IM or jet injects without counseling by physician Menactra Intramuscular Injectable Vision Vaccines Ordered - Print Consent/Declination Forms Ofc Vst, Est Level IV Xray - Chest - 2 Views - InHouse Handling of specimen for transfer Venipuncture Est Patient Detailed - 98264 Dispensing Visit (UNLIVSTED OPHTHALMOLOGICAL SERVICE/PROCEDURE) INFLUENZA VACCINE QUADRIVALENT 3 YRS PLUS IM Pneumovax Vaccine PPSV23 Admin of Vaccine - Injection - Each Add'l Admin of Vaccine - Injection - 1 Est Patient Detailed - 99963 Progressive lens, per lens Frames, purchases Est Patient Comprehensive Opth - 33586 New Patient Intermediate Opth - 66219 Est Patient Detailed - 04105 Est Patient Detailed - 18884 Est Patient Detailed - 80812 Est Patient Detailed - 62105 Est Patient Exp Problem - 81808 Est Patient Detailed - 01402 Diagnostic evaluation with medical - 69694 INFLUENZA VACCINE QUADRIVALENT 3 YRS PLUS IM Admin of Vaccine - Injection - 1 Est Patient Detailed - 82885 Est Patient Detailed - 88416 Prevnar (PCV13) IM TDAP Admin of Vaccine - Injection - Each Add'l Admin of Vaccine - Injection - 1 Est Patient Well Exam (40 - 64 Yrs) - 25532 Primary Care Service [facility] - Psychiatry Diagnostic evaluation (no medical) - 81478 IB Assessment - Contract Agent Primary Care Service [facility] Xray - Chest - PA & Lat - InHouse Primary [facility] Service [facility] Handling of specimen for transfer Venipuncture Integrated Behavioral Health Assessment (IBH) New Patient Well Exam (40 - 64 Yrs) - 11137 Handling of specimen for transfer Venipuncture HISTORY OF PROCEDURES Procedure Date Procedure Name Provider Procedure Notes Status Est Patient Comprehensive Opt - 23296 Edgard Nohemi Martin completed Est Patient Intermediate Opt - 27141 Chriss Martin completed First Vx - Ix [...] 60.00) completed Est Patient Comprehensive Opt - 89138 Edgard Martin completed New Patient Intermediate Opt - 42988 Chriss Martin completed Diagnostic evaluation with medical - 83236 Buck Ledesma completed Primary [facility] Service [facility] Maximus Yancey Time spent with patient: 30 completed Diagnostic evaluation (no medical) - 04848 Jasper Bobo completed IBH Assessment - Contract Agent Jasper Bobo completed Primary Care Service Linkage Maximus Yancey Time spent with patient: 30 completed Primary Care Service Linkage Maximus Yancey Time spent with patient: 30 completed Venipuncture Sandra Monge completed Venipuncture Sandra Monge completed GOALS No Information Available [facility] No Information Available
--- OUTSIDE RECORDS SUMMARY | 2020-02-03 02:40 | XMS REPORT ---
Author Author Admin, Maljamar Organization Unknown Address Unknown Phone Unavailable PROBLEMS [...] Location Encounter Diagnosis - Ambulatory Encounter Nela Wayneh Nela Santiikanth [facility] UNK - Ambulatory Encounter Nela Missaelnth Nela Santiikanth [facility] UNK - Ambulatory Encounter Nela Santiikanth Nela Santiikanth [facility] UNK - Ambulatory Encounter Nelairina Mcgowan [facility] UNK - Ambulatory Encounter Nela Santiikanth Nela Santiikanth [facility] UNK - Ambulatory Encounter Nela Santiikanth Nela Santiikanth [facility] UNK - Ambulatory Encounter Nela Santiikanth Nela Santiikanth [facility] UNK - Ambulatory Encounter Nela Santiikanth Nela Santiikanth [facility] UNK - Ambulatory Encounter Nela Santiikanth Nela Missaelnth Dorothy Mcgowan [facility] ArthralgiaChronic back pain - Ambulatory Encounter Edgard Martin [facility] UNK - Ambulatory Encounter Edgard Martin [facility] Vision UNK - Ambulatory Encounter Edgard Martin [facility] Vision SPECIAL SCREENING EXAMINATION OTH SPEC VIRAL DZ - Ambulatory Encounter Chriss Martin [facility] Vision UNK - Ambulatory Encounter Chrissjesus Martin [facility] Vision UNK - Ambulatory Encounter Chriss Martin [facility] Vision UNK - Ambulatory Encounter Chrissjesus Barajas [facility] Vision Encounter for exam of eyes and vision- abnormal findings - Ambulatory Encounter Betzaida Dunlap [facility] Services UNK - Ambulatory Encounter Martha Stallworth [facility] Services UNK - Ambulatory Encounter Nela Schroeder [facility] Adult Medicine UNK - Ambulatory Encounter Nela Jones [facility] Services UNK - Ambulatory Encounter Marcelino Leoz Callizo Rosy Ghosh [facility] Behavioral Health UNK - Ambulatory Encounter Nela Lanza MedAdherence, [facility] Adult Medicine UNK - Ambulatory Encounter Nela Schroeder [facility] Adult Medicine UNK - Ambulatory Encounter Nela Pineda [facility] Adult Medicine UNK - Ambulatory Encounter Nelairina Lanza MedAdherence, [facility] Adult Medicine UNK - Ambulatory Encounter Marcelino Leoz Callizo [facility] Behavioral Health UNK - Ambulatory Encounter Marcelino Leoz Callizo Thida Danielle [facility] Behavioral Health UNK - Ambulatory Encounter Nela Schroeder [facility] UNK - Ambulatory Encounter Nela Schroeder [facility] UNK - Ambulatory Encounter Nela Schroeder Dylon Belle Walker [facility] Abscess, axilla, right - Ambulatory Encounter Sandra Lanza MedAdherence, [facility] UNK - Ambulatory Encounter Dorothy [facility] UNK - Ambulatory Encounter Isi [facility] UNK - Ambulatory Encounter Buck Arringtons Isi Jefferson Calljudah [facility] UNK - Ambulatory Encounter [...] Medicine UNK - Ambulatory Encounter Dorothy Nash [facility] UNK - Ambulatory Encounter Jeromy Recinos [facility] UNK - Ambulatory Encounter Cliff Arnold [facility] UNK - Ambulatory Encounter Nela Schroeder [facility] UNK - Ambulatory Encounter Nela Schroeder [facility] UNK - Ambulatory Encounter Dorothy [facility] UNK - Ambulatory Encounter Nela Schroeder [facility] UNK - Ambulatory Encounter Martha Stallworth [facility] Public Health Services UNK - Ambulatory Encounter Nela Schroeder [facility] UNK - Ambulatory Encounter Nela Stallworth [facility] Adult Medicine HIV infectionHepatitis A immunityHepatitis B immunity - Ambulatory Encounter Cliff [facility] UNK - Ambulatory Encounter Mare Carbajal [facility] UNK - Ambulatory Encounter Jeromy Galvez Napier [facility] UNK - Ambulatory Encounter Bethanyjaswant Annel [facility] UNK - Ambulatory [...] Medicine UNK - Ambulatory Encounter Sandra Monge [facility] Adult Medicine Osteopenia - Ambulatory Encounter Cliff Jackson [facility] Adult Medicine UNK - Ambulatory Encounter Rinal Recinos [facility] UNK - Ambulatory Encounter Rinal Recinos Cliff Jackson [facility] Adult Medicine UNK - Ambulatory Encounter Cliff Jackson [facility] UNK - Ambulatory Encounter Cliff Jackson [facility] UNK - Ambulatory Encounter Sandra Monge [facility] Rinal Recinos [facility] UNK - Ambulatory Encounter Sandra Monge [facility] Meghna Arnold [facility] Adult Medicine UNK - Ambulatory Encounter Fax Status [facility] Services UNK - Ambulatory Encounter Fax Status [facility] Services UNK - Ambulatory Encounter Fax Status [facility] UNK - Ambulatory Encounter Fax Status [facility] UNK - Ambulatory Encounter Mare Jamison Rinal Jorje Murillo [facility] Adult Medicine UNK - Ambulatory Encounter Rinal Recinos [facility] Mare Carbajal [facility] Adult Medicine UNK - Ambulatory Encounter Jeromy Recinos [facility] Adult Medicine UNK - Ambulatory Encounter Meghna Nsah [facility] Adult Medicine UNK - Ambulatory Encounter Fax Status [facility] UNK - Ambulatory Encounter Fax Status [facility] UNK - Ambulatory Encounter Sandra Monge [facility] Adult Medicine UNK - Ambulatory Encounter Sandra Nash [facility] Adult Medicine UNK - Ambulatory Encounter Lashaun Monge [facility] Services UNK - Ambulatory Encounter Sandra Monge [facility] Adult Medicine UNK - Ambulatory Encounter Jeromy Recinos [facility] Adult Medicine UNK - Ambulatory Encounter Destinial Recinoscaryl Jackson [facility] Adult Medicine UNK - Ambulatory Encounter Cliff Jackson [facility] Adult Medicine UNK - Ambulatory Encounter Meghna Nash [facility] Adult Medicine UNK - Ambulatory Encounter Cliff Jackson [facility] Adult Medicine UNK - Ambulatory Encounter [facility] - [facility] - Ambulatory Encounter Sandra GoldsteinLogkendrick [facility] Adult Medicine UNK - Ambulatory Encounter Sandra Monge [facility] Adult Medicine UNK - Ambulatory Encounter Sandra Quiles [facility] Adult Medicine Increased transaminase level - Ambulatory Encounter Sandra GoldsteinLogkendrick [facility] Adult Medicine UNK - Ambulatory Encounter Sandra Mcgowan [facility] Adult Medicine UNK - Ambulatory Encounter Sandra GoldsteinLogkendrick [facility] Adult Medicine UNK - Ambulatory Encounter Sandra Monge [facility] Adult Medicine UNK - Ambulatory Encounter Sandra Martinez [facility] Adult Medicine Hx Bronchitis acute with bronchospasmHyponatremiaHyperkalemiaHypercalcemia - Ambulatory Encounter Sandra Lanza MedAdherence, [facility] Adult Medicine UNK - Ambulatory Encounter Sandra Lanza MedAdherence, [facility] Adult Medicine UNK - Ambulatory Encounter Cliff Jackson [facility] Adult Medicine UNK - Ambulatory Encounter Sandra Monge [facility] Adult Medicine UNK - Ambulatory Encounter Sandra Monge [facility] Cliff Jackson [facility] Adult Medicine UNK - Ambulatory Encounter Sandra Lanza MedAdherence, [facility] Adult Medicine UNK - Ambulatory Encounter Sandra Lanza MedAdherence, [facility] Adult Medicine UNK - Ambulatory Encounter Bonichanda Cristina [facility] Public Health Services UNK - Ambulatory Encounter Jazmin Bullard [facility] Vision UNK - Ambulatory Encounter Jazmin Bullard [facility] Vision UNK - Ambulatory Encounter Sandra Monge [facility] Adult Medicine UNK - Ambulatory Encounter Sandra Monge [facility] Adult Medicine UNK - Ambulatory Encounter Sandra Monge [facility] Adult Medicine UNK - Ambulatory Encounter Sandra Martinez [facility] Adult Medicine Onychomycosis, toenailsImmunization update - Ambulatory Encounter Jazmin Aleah [facility] Vision UNK - Ambulatory Encounter Edgard Martin [facility] Vision UNK - Ambulatory Encounter Edgard Martin [facility] Vision UNK - Ambulatory Encounter Edgard Hoffmann [facility] Vision SPECIAL SCREENING EXAMINATION OTH SPEC VIRAL DZ - Ambulatory Encounter Chriss Martin [facility] Vision UNK - Ambulatory Encounter Chriss Martin [facility] Vision UNK - Ambulatory Encounter Chriss Martin [facility] Vision UNK - Ambulatory Encounter Chrissjesus Martin Jazmin Bullard [facility] Vision Myopia - OURegular astigmatism, bilateralPresbyopia - OU - Ambulatory Encounter Sandra GoldsteinLogic [facility] Adult Medicine UNK - Ambulatory Encounter Sandra Tijerinaan [facility] Adult Medicine UNK - Ambulatory Encounter Sandra Vargas [facility] Adult Medicine UNK - Ambulatory Encounter Sandra Yancye [facility]herence [facility] Adult Medicine UNK - Ambulatory Encounter Sandra Lanza [facility], [facility] UNK - Ambulatory Encounter Sandra Lanza [facility]herence, [facility] UNK - Ambulatory Encounter Sandra Lanza [facility], [facility] Adult Medicine UNK - Ambulatory Encounter Sandra GoldsteinLogic Estrellita Lanza [facility], [facility] Adult Medicine UNK - Ambulatory Encounter Sandra GoldsteinLogkendrick Lanza [facility], [facility] Adult Medicine UNK - Ambulatory Encounter Sandra GoldsteinLogkendrick Lanza [facility], [facility] Adult Medicine UNK - Ambulatory Encounter Khloe Mckeon [facility] Services UNK - Ambulatory Encounter Khloe Lee [facility] Services UNK - Ambulatory Encounter Amaury Nath [facility] Adult Medicine UNK - Ambulatory Encounter Amaury Nath [facility] Adult Medicine UNK - Ambulatory Encounter Sandra Monge [facility] Adult Medicine UNK - Ambulatory Encounter Sandra Monge [facility] Adult Medicine UNK - Ambulatory Encounter Sandra Hill [facility] Adult Medicine Hx Latent tuberculosis, s/p INH/B6Hx Bronchitis acute with bronchospasm - Ambulatory Encounter Buck Ledesma [facility] Behavioral Health UNK - Ambulatory Encounter Buck Ledesma [facility]ic [facility] Behavioral Health UNK - Ambulatory Encounter Sandra Vargas [facility] Adult Medicine UNK - Ambulatory Encounter Sandra GoldsteinLogkendrick Vargas [facility] Adult Medicine UNK - Ambulatory Encounter Sandra Bush [facility] UNK - Ambulatory Encounter Buck Ledesma [facility] Behavioral Health UNK - Ambulatory Encounter Garettmaritza Bulmarokaden [facility]ic [facility] Behavioral Health UNK - Ambulatory Encounter Buck Solares [facility] Contact Center UNK - Ambulatory Encounter Sandra Casrto [facility] Services UNK - Ambulatory Encounter Sandra Castro [facility] Adult Medicine UNK - Ambulatory Encounter Sandra Monge [facility] Adult Medicine UNK - Ambulatory Encounter Sandra Monge [facility] Adult Medicine UNK - Ambulatory Encounter Sandra Kessler [facility] Adult Medicine UNK - Ambulatory Encounter Sandra Monge [facility] Adult Medicine UNK - Ambulatory Encounter Sandra GoldsteinLogic [facility] Adult Medicine UNK - Ambulatory Encounter Nancy Jones [facility] Services UNK - Ambulatory Encounter Khloe Lee [facility] Services UNK - Ambulatory Encounter Jamesdavis Jones [facility] Adult Medicine UNK - Ambulatory Encounter Buck Burris [facility] Behavioral Health UNK - Ambulatory Encounter Sandra Monge [facility] Adult Medicine UNK - Ambulatory Encounter Sandra Hill [facility] Adult Medicine Hx Latent tuberculosis, s/p INH/D5Okarykeapsrwqtbuievd - Ambulatory Encounter Sandra Monge [facility] Adult Medicine UNK - Ambulatory Encounter Sandra Boss [facility] Adult Medicine UNK - Ambulatory Encounter Buck Clarke [facility] Services UNK - Ambulatory Encounter Buck Ledesma [facility] Behavioral Health UNK - Ambulatory Encounter Buck GoldsteinLogic [facility] Behavioral Health UNK - Ambulatory Encounter Sandra Monge [facility] Adult Medicine UNK - Ambulatory Encounter Buck Villeda [facility] Behavior[facility] Health UNK - Ambulatory Encounter Buck Burris [facility] Behavioral Health UNK - Ambulatory Encounter Lashaun Mckeon [facility] Services UNK - Ambulatory Encounter [facility] UNK - Ambulatory Encounter Buck Ledesma [facility] Behavioral Health UNK - Ambulatory Encounter Marymaritza Keatingjanetzenon Bliss [facility] Behavioral Health UNK - Ambulatory Encounter Sandra GoldsteinLogic [facility] Adult Medicine UNK - Ambulatory Encounter Sandra Monge [facility] Adult Medicine UNK - Ambulatory Encounter Sandra Chen [facility] Adult Medicine Flu shot - Ambulatory Encounter Sandra GoldsteinLogic [facility] Adult Medicine UNK - Ambulatory Encounter Sandra Chen [facility] Adult Medicine UNK - Ambulatory Encounter Sandra Monge [facility] Adult Medicine UNK - Ambulatory Encounter Sandra Chen [facility] Adult Medicine BMI < 20 - Ambulatory Encounter Sandra GoldsteinLogic [facility] Adult Medicine UNK - Ambulatory Encounter Sandra Monge [facility] Services UNK - Ambulatory Encounter Sandra Monge [facility] Adult Medicine UNK - Ambulatory Encounter Sandra Chen [facility] Adult Medicine Immunization updateVitamin D deficiency - Ambulatory Encounter [facility] - Ambulatory Encounter Jason Gilliam [facility] UNK - Ambulatory Encounter Sandra Hill [facility] Adult Medicine UNK - Ambulatory Encounter LM Care Coordination Desktop [facility] UNK - Ambulatory Encounter Sandra Monge [facility] Adult Medicine COPDHx Latent tuberculosis, s/p INH/B6 - Ambulatory Encounter Sandra Kowalski [facility] Adult Medicine UNK - Ambulatory Encounter Maximus Yancey [facility] Women'S Studies Lecturer UNK - Ambulatory Encounter Maximus Yancey [facility] Women'S Studies Lecturer UNK - Ambulatory Encounter [facility] UNK - Ambulatory Encounter Sandra Kowalski [facility] Adult Medicine UNK - Ambulatory Encounter Maximus Yancey [facility] Women'S Studies Lecturer UNK - Ambulatory Encounter Sandra Mcgowan [facility] Adult Medicine UNK - Ambulatory Encounter Maximus Yancey [facility] Women'S Studies Lecturer UNK - Ambulatory Encounter Sandra Monge [facility] Adult Medicine UNK - Ambulatory Encounter Jasper Keller [facility] Behavioral Health DEPRESSIVE DISORDER, OTHER SPECIFIEDALCOHOL USE DISORDER, MODERATETOBACCO USE DISORDER, MODERATE - Ambulatory Encounter Sandra Jamison [facility] Adult Medicine - Ambulatory Encounter Sandra Kowalski [facility] Adult Medicine UNK - Ambulatory Encounter Sandra Day [facility] Adult Medicine Screening for hypercholesterolemia - Ambulatory Encounter Adrian Cristina [facility] Public Health Services UNK - Ambulatory Encounter [facility] Vision UNK VITAL SIGNS Date Observation Value Provider BP diastolic #1 102 mm[Hg] Nela Schroeder" BP systolic #1 162 mm[Hg] Nela Shrikanth [...] Dorothy Edwin " temperature site oral Dorothy Edwin " [...] pressure, site #1 right arm Dylon Belle Walker " Blood Pressure Position 01 sitting Dylon E Aaron " method used to obtain blood pressure automatic Dylon E Aaron " temperature site oral Dylon Belle Walker " weight E&M 141 lbs. Dylon E Aaron " weight in kilograms E&M 64.09 kg Dylon E Aaron " height E&M 72 [in_i] Dylon E Aaron " height in centimeters E&M 182.88 cm Dylon Belle SuárezAaron blood pressure, diastolic 96 mm[Hg] Dorothy Edwin [...] " weight in kilograms E&M 63.82 kg lCiff Jackson " blood pressure, site #1 right [...] Jackson blood pressure, diastolic 79 mm[Hg] Angi [place] " blood pressure, systolic 114 mm[Hg] Angi [place] " oxygen saturation, oximetry 98 % Angi Juan " pulse rate E&M 88 /min Angi [place] " temperature E&M 98.9 [degF] Angi [place] " weight E&M 145.13 lbs. Angi [place] " weight in kilograms E&M 65.97 kg Angi [place] " method used to obtain blood pressure automatic Angi [place] " Blood Pressure Position 01 sitting Angi [place] " blood pressure, site #1 left arm Angi Juan " temperature site oral Angi Juan " height E&M 72 [in_i] Angi Juan " height in centimeters E&M 182.88 cm Angi Juan oxygen saturation, oximetry 95 % Angi [place] " blood pressure, diastolic 88 mm[Hg] Angi [place] " blood pressure, systolic 129 mm[Hg] Angi Juan " pulse rate E&M 96 /min Angi Jaun " temperature E&M 98.4 [degF] Angi [place] " weight E&M 142 lbs. Angi [place] " weight in kilograms E&M 64.55 kg Angi Juan " method used to obtain blood pressure automatic Angi [place] " Blood Pressure Position 01 sitting Angi [place] " blood pressure, site #1 left arm Angi Juan " temperature site oral Angi Juan " height E&M 72 [in_i] Angi [place] " height in centimeters E&M 182.88 cm [...] Michelle Sergio " temperature site oral Michelle Hill " [...] Burris " Blood Pressure Position 01 sitting Anginava Burris " blood pressure, site #1 left arm Angi Burris " blood pressure, diastolic 80 mm[Hg] Angi Burris " blood pressure, systolic 113 mm[Hg] Angi Burris " pulse rate E&M 80 /min Angi Burris " weight E&M 128.80 lbs. Angi Burris " weight in kilograms E&M 58.55 kg Angi Burris " height E&M 72 [in_i] Nagi Burris " height in centimeters E&M 182.88 [...] right arm Michelleadam Hill " temperature site tympanic Michelle Hill [...] Caro " weight E&M 131.25 lbs. Buck Keatingjagdeep " weight in kilograms E&M 59.66 kg Buck Keatingjagdeep " height E&M 72 [in_i] Emil Caro [...] used to obtain blood pressure automatic Isi Balboa " Blood Pressure Position 01 sitting Isi Balboa " blood pressure, site #1 right arm Isi Balboa " blood pressure, diastolic 75 mm[Hg] Isi Balboa " blood pressure, systolic 110 mm[Hg] Isi Balboa " pulse rate E&M 120 /min Isi Balboa " weight E&M 136 lbs. Isi Balboa " weight in kilograms E&M 61.82 kg Isi Balboa " height E&M 72 [in_i] Isi Balbleon " height in centimeters E&M 182.88 cm [facility] blood pressure, diastolic 74 mm[Hg] Deepika Chen [...] " respiratory rate E&M 14 /min Deepika Jessicarez " pulse rate E&M 86 /min Deepika Jessicarez " method used to obtain blood pressure automatic Deepika Chen " Blood Pressure Position 01 sitting Deepika Valentinoierrez " blood pressure, site #1 right arm Deepika Jessicarez " temperature site tympanic Deepika Jessicarez " oxygen saturation, oximetry 97 % Deepika Valentinoierrez " temperature E&M 96.2 [degF] Deepika Jessicarez [...] creatinine, urine, 24 hour 2076 mg/24h [facility] [id number] High " creatinine, random, urine 38.1 mg/dL [...] creatinine, urine, 24 hour 1562 mg/24h [facility] [id number] " creatinine, random, urine 25.4 mg/dL [facility] [...] >3.0 " B-12, serum 471 pg/mL [facility] [id number] 5535/04/21 human leukocyte antigen B57 negative Sandra Monge [...] Date Vaccine Dose Lot Number Status [facility] [id number] sanofi pasteur 0.5 mL [id number] completed HISTORY OF MEDICATION USE Medication Instructions Dates Provider Comments MELOXICAM 7.5 MG ORAL TABLET Take 1 tablet orally once daily as needed Nela Shrikanth DRYSOL 20 % EXTERNAL SOLUTION Apply once daily Nela Shrikanth HYPERCARE 15 % EXTERNAL SOLUTION Apply once daily as needed Nela Shrikanth PROZAC 20 MG ORAL CAPSULE Take one capsule daily. Marcelino Bruceo PIFELTRO 100 MG ORAL TABLET Take 1 tablet orally once daily Nela Black ONDANSETRON 4 MG ORAL TABLET DISINTEGRATING 1 By Mouth every 8 hours as needed for nausea/vomiting. Sandra Monge PREZCOBIX 800-150 MG ORAL TABLET 1 tab by mouth daily with food - Nela Shrikabethany FENOFIBRATE 48 MG ORAL TABLET tk 1 [...] EVERY 4 TO 6 HOURS NEEDED Estrellita BowserAdherence, ok to change per Dr. Monge, due [...] TAKE ONE TABLET BY MOUTH DAILY Estrellita BowserAdherperez, ENALAPRIL MALEATE 20 MG TABLET TAKE ONE [...] Observation Value Provider drug use, illicit Previously Dorothychanda Pineda " [...] very busy though". Not homeless. Born in [facility]. City: [place]. State: [place]. Lives w/ mom and step-father in [place], 2 cats. Unemployed since November 2016. Highest education level: bachelor's degree. Not in workforce. Not on disability. 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 Bachelor's degree in Malaysian Literature at [employer]. Sex at : Male. Sexual orientation: Palacio. Gender identity: Male. Gender of partner(s): Male. Age of first sexual intercourse: 17. Sexually Active: No. Not sexually active. Dorothy Pineda " social history reviewed E&M reviewed today Dorothychanda Pineda " assessment of health literacy ([facility] 2014 Standards, 3C10) Adequate Dorothy Pineda " passive cigarette smoke exposure No Dorothy Edwin " smoking status current every day smoker Dorothychanda Pineda sexual orientation Palacio Jess Barajas time of call 11/15/2019 1:21 PM Martha Stallworth drug use, illicit Previously Marcelino Leoz Calltyo " alcohol use Currently Marcelino Leoz Callizo [...] very busy though". Not homeless. Born in [facility]. City: [place]. State: [place]. Lives w/ mom and step-father in [place], 2 cats. Unemployed since November 2016. Highest education level: bachelor's degree. Not in workforce. Not on disability. 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 Bachelor's degree in Malaysian Literature at [employer]. Sex at : Male. Sexual orientation: Palacio. Gender identity: Male. Gender of partner(s): Male. Age of first sexual intercourse: 17. Sexually Active: No. Not sexually active. Marcelino Li Calljudah " social history reviewed E&M reviewed today Marcelino Breanneoz Callizo drug use, illicit Previously Dorothy Pineda [...] very busy though". Not homeless. Born in [facility]. City: [place]. State: [place]. Lives w/ mom and step-father in [place], 2 cats. Unemployed since November 2016. Highest education level: bachelor's degree. Not in workforce. Not on disability. 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 Bachelor's degree in Malaysian Literature at [employer]. Sex at : Male. Sexual orientation: Palacio. Gender identity: Male. Gender of partner(s): Male. Age of first sexual intercourse: 17. Sexually Active: No. Not sexually active. Dorothy Pineda " social history reviewed E&M reviewed today Dorothy Pineda " assessment of health literacy ([facility] 2014 Standards, 3C10) Adequate Dorothy Pineda " passive cigarette smoke exposure No Dorothy Pineda " smoking status current every day smoker Dorothy Pineda drug use, illicit Previously Marcelino Li Callizo " alcohol use Currently Marcelino Leolga [...] though". Not homeless. Born in [place]. City: [place]. State: [place]. Lives w/ mom and step-father in [place], 2 cats. Unemployed since November 2016. Highest education level: bachelor's degree. Not in workforce. Not on disability. 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 Bachelor's degree in Malaysian Literature at [employer]. Sex at : Male. Sexual orientation: [...] " assessment of health literacy ([facility] 2014 Standards, 3C10) Adequate Dylon Belle [...] though". Not homeless. Born in [place]. City: [place]. State: [place]. Lives w/ mom and step-father in [place], 2 cats. Unemployed since November 2016. Highest education level: bachelor's degree. Not in workforce. Not on disability. 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 Bachelor's degree in Malaysian Literature at [employer]. Sex at : Male. Sexual orientation: [...] very busy though". Not homeless. Born in [facility]. City: [place]. State: [place]. Lives w/ mom and step-father in [place], [facility]. Unemployed since November 2016. Highest education level: bachelor's degree. Not in workforce. Not on disability. 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 Bachelor's degree in Malaysian Literature at [employer]. Sex at : Male. Sexual orientation: Palacio. Gender identity: Male. Gender of partner(s): Male. Age of first sexual intercourse: 17. Sexually Active: No. Not sexually active. Dorothy Pineda " social history reviewed E&M reviewed today Dorothy Pineda " assessment of health literacy ([facility] 2014 Standards, 3C10) Adequate Dorothy Pineda " [...] though". Not homeless. Born in [place]. City: [place]. State: [place]. Lives w/ mom and step-father in [place], 2 cats. Unemployed since November 2016. Highest education level: bachelor's degree. Not in workforce. Not on disability. 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 Bachelor's degree in Malaysian Literature at [employer]. Sex at : Male. Sexual orientation: Palacio. Gender identity: Male. Gender of partner(s): Male. Age of first sexual intercourse: 17. Sexually Active: No. Not sexually active. Cliff Jackson " social history reviewed E&M reviewed today Cliff Jackson " is there any chance that you could be ? No Cliff Jackson " assessment of health literacy ([facility] 2014 Standards, 3C10) Adequate Cliff Jackson [...] very busy though". Not homeless. Born in [facility]. City: [place]. State: [place]. Lives w/ mom and step-father in [place], cats. Unemployed since November 2016. Highest education level: bachelor's degree. Not in workforce. Not on disability. 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 Bachelor's degree in Malaysian Literature at [employer]. Sex at : Male. Sexual orientation: Palacio. Gender identity: Male. Gender of partner(s): Male. Age of first sexual intercourse: 17. Sexually Active: No. Not sexually active. Cliff Jackson " social history reviewed E&M reviewed today Cliff Jackson " is there any chance that you could be ? No Cliff Jackson " assessment of health literacy ([facility] 2014 Standards, 3C10) Adequate Cliff Jackson " passive cigarette smoke exposure Yes Cliff Jackson " smoking status current every day smoker Cliff Jackson " smoking, advice to quit Yes Sandra Monge " Exercise Program Referral T Sandra Monge " Weight Management Counseling Provided T Sandra Monge " Nutrition intervention T Sandra Monge " drug use, illicit Previously Angi [place] " alcohol use Currently Angi Juan " [...] very busy though". Not homeless. Born in [facility]. City: [place]. State: [place]. Lives w/ mom and step-father in [place], cats. Unemployed since November 2016. Highest education level: bachelor's degree. Not in workforce. Not on disability. 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 Bachelor's degree in Malaysian Literature at [employer]. Sex at : Male. Sexual orientation: Palacio. Gender identity: Male. Gender of partner(s): Male. Age of first sexual intercourse: 17. Sexually Active: No. Not sexually active. Angi Martinez " social history reviewed E&M reviewed today Angi Martinez " sexual orientation Palacio Angi Martinez " is there any chance that you could be ? No Angi Hessrod " assessment of health literacy ([facility] 2014 Standards, 3C10) Adequate Angi Juan " passive cigarette smoke exposure Yes Angi Hessrod " smoking status current every day smoker Angi Hessrod time of call 12/02/2018 10:35 AM Adrian Merlosez Exercise Program Referral T Sandra Monge " Weight Management Counseling Provided Mendez Monge " Nutrition intervention T Sandra Monge " smoking, advice to quit Yes Sandra Monge " drug use, illicit Previously Angi Martinez " alcohol use Currently Angi Juan " [...] very busy though". Not homeless. Born in [facility]. City: [place]. State: [place]. Lives w/ mom and step-father in [place], cats. Unemployed since November 2016. Highest education level: bachelor's degree. Not in workforce. Not on disability. 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 Bachelor's degree in Malaysian Literature at [employer]. Sex at : Male. Sexual orientation: Palacio. Gender identity: Male. Gender of partner(s): Male. Age of first sexual intercourse: 17. Sexually Active: No. Not sexually active. Angi Martinez " social history reviewed E&M reviewed today Angi Juan " sexual orientation Palacio Angi Martinez " is there any chance that you could be ? No Angi [place] " assessment of health literacy ([facility] 2014 Standards, 3C10) Adequate Angi [place] " passive cigarette smoke exposure Yes Angi [...] very busy though". Not homeless. Born in [facility]. City: [place]. State: [place]. Lives w/ mom and step-father in [place], 2 cats. Unemployed since November 2016. Highest education level: bachelor's degree. Not in workforce. Not on disability. 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 Bachelor's degree in Malaysian Literature at [employer]. Sex at : Male. Sexual orientation: [...] " assessment of health literacy ([facility] 2014 Standards, 3C10) Adequate Michelle Hill [...] " assessment of health literacy ([facility] 2014 Standards, 3C10) Adequate Elizabeth Kessler [...] " assessment of health literacy ([facility] 2014 Standards, 3C10) Adequate Michelle Hill smoking status current every day smoker [...] Deepika Gustavo " alcohol use Currently Deepika Chen " [...] very busy though". Not homeless. Born in [facility]. City: [place]. State: [place]. Lives w/ mom and step-father in [place], [facility]. Unemployed since November 2016. Highest education level: bachelor's degree. Not in workforce. Not on disability. 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 Bachelor's degree in Malaysian Literature at [employer]. Sex at : Male. Sexual orientation: [...] " assessment of health literacy ([facility] 2014 Standards, 3C10) Adequate Deepika Chen [...] very busy though". Not homeless. Born in [facility]. City: [place]. State: [place]. Lives w/ mom and step-father in [place], 2 cats. Unemployed since November 2016. Highest education level: bachelor's degree. Not in workforce. Not on disability. 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 Bachelor's degree in Malaysian Literature at [employer]. Sex at : Male. Sexual orientation: Palacio. Gender identity: Male. Gender of partner(s): Male. Age of first sexual intercourse: 17. Sexually Active: No. Not sexually active. Deepika Chen " social history reviewed E&M reviewed today Deepika Chen " drug use, illicit Previously Deepika Gustavo " alcohol use Currently Deepikabeatris Chen " sexual orientation Palacio Deepika Chen " passive cigarette smoke exposure No Deepika Chen " smoking, advice to quit Yes Deepika Chen " smoking status current every day smoker Deepika Chen " assessment of health literacy ([facility] 2014 Standards, 3C10) Adequate Deepika Chen [...] very busy though". Not homeless. Born in [facility]. City: [place]. State: [place]. Lives w/ mom and step-father in [address] Unemployed since November 2016. Highest education level: bachelor's degree. Not in workforce. Not on disability. 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 Bachelor's degree in Malaysian Literature at [employer]. Sex at : Male. Sexual orientation: Palacio. Gender identity: Male. Gender of partner(s): Male. Age of first sexual intercourse: 17. Sexually Active: No. Not sexually active. Deepika Chen " social history reviewed E&M reviewed today Deepika Chen " sexual orientation Palacio Deepika Chne " passive cigarette smoke exposure No Deepika Chen " smoking status current every day smoker Deepika Chen " assessment of health literacy ([facility] 2014 Standards, 3C10) Adequate Deepika Chen [...] very busy though". Not homeless. Born in [facility]. City: [place]. State: [place]. Lives w/ mom and step-father in [address] Unemployed since November 2016. Highest education level: bachelor's degree. Not in workforce. Not on disability. 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 Bachelor's degree in Malaysian Literature at [employer]. Sex at : Male. Sexual orientation: [...] assessment Lives w/ mom and step-father in [place], 2 cats. Jasper Bobo " social history reviewed E&M reviewed today Sandra Monge " social history E&M Single. Spouse/Partner/Significant Other: n/a. Family is aware and supportive. Not homeless. Born in [facility]. City: [place]. State: [place]. Lives in [facility] in [facility]. Not employed. Highest education level: bachelor's [...] Monge " home/family situation, assessment [place] [facility] [place] [facility] in [facility]. Sandra Monge " family support Family is aware and supportive. Sandra Monge " smoking, advice to quit Yes Sandra Monge " assessment of health literacy ([facility] 2014 Standards, 3C10) Adequate Sandra Monge " [...] good eye contact, normal affect Edgard Nohemi Martin " mental status examination: orientation E&M alert and oriented to person, place, and time Edgard Martin mental status assessment, judgment fair Marcelino Leoz [...] oriented to time, place, and person Nela [facility] " assessment of mood and affect E&M no depression, anxiety, or agitation [facility] " Generalized Anxiety Disorder Questionnaire - Question 2 0 Dorothy Edwin " Generalized Anxiety Disorder Questionnaire - Question 1 0 Dorothy Edwin mental status assessment, judgment fair Marcelino Leoz [...] of judgment and insight E&M intact [facility] " mental status examination: orientation E&M oriented to time, place, and person [facility]ela [facility] " assessment of mood and affect E&M no depression, anxiety, or agitation Nela Shrikanth assessment of judgment and insight E&M intact Nela [facility] " mental status examination: orientation E&M oriented to time, place, and person Nela [facility] " assessment of mood and affect [...] affect E&M no depression, anxiety, or agitation Asndra Mariposa " Generalized Anxiety Disorder Questionnaire - [...] oriented to time, place, and person Sandra Donovanek " assessment of mood and affect E&M [...] appropriate dress, looks like stated age, satya Mireleszenon mood (mental status exam) pleasant Garettshan Samiuddin " anxiety worry a lot, sleep disturbance Garettan Bulmaroiuddin " mental status assessment, judgment fair Zishan Samiuddin " insight (mental status exam) fair shan Samiuddin " Mental Status Exam: intelligence adequate fund of information, intact memory processes, oriented to person, oriented to place, oriented to time, oriented to situation, oriented to reality Garettan Bulmaroiudzenon " hallucinations none [facility] " thought content (mental status exam) (E&M) lucid Maryan Bulmaroiuddin " mental status assessment, process able to abstract, goal-directed, logical [facility] Sami[facility] " mental status assessment, sensorium alert, [...] adequate hygiene, appropriate dress, looks like stated emma, satya Mireleszenon assessment of judgment and insight E&M intact Sandra Monge " mental status examination: orientation E&M oriented to time, place, and person Sandra Monge " assessment of mood and affect E&M no depression, anxiety, or agitation Sandra Monge " Generalized Anxiety Disorder Questionnaire - Question 2 0 Deepika Gustavo " Generalized Anxiety Disorder Questionnaire - Question 1 0 Deepika Gustavo Generalized Anxiety Disorder Questionnaire - Question 2 0 Deepika Gustavo " Generalized Anxiety Disorder Questionnaire - Question 1 0 Deepika Jessicarez assessment of judgment and insight E&M intact Sandra Mariposa " mental status examination: orientation E&M oriented to time, place, and person Sandra Mariposa " assessment of mood and affect E&M no depression, anxiety, or agitation Sandra Mariposa " Generalized Anxiety Disorder Questionnaire - Question 2 0 Deepika Gustavo " Generalized Anxiety Disorder Questionnaire - Question 1 0 Deepika Gustavo delusion No Jasper Bobo " mental status [...] status exam) congruent, normal intensity, normal range Jasepr Bobo" mood (mental status exam) happy Jasper [...] alliance party ID *Jasper White 0-100% Other [id number] Sliding Fee - Cat 1 quitchen insurance [employer] [id number] *Jasper White 0-100% Other Sliding Fee - Cat 1 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 *Jasper White 0-100% Other [id number] *Jasper White 0-100% Other Sliding Fee - Cat 1 Commercial insurance [employer] [id number] *Jasper White 0-100% Other [id number] ADVANCE DIRECTIVES Name Date DISCUSSED - NO [...] Lumboacral - InHouse Est Patient Detailed - 70378 Est Patient Comprehensive Opth - 53920 Est Patient Intermediate Opth - 95325 Est Patient Exp Problem - 96080 Est Patient Detailed - 33093 Est Patient Detailed - 65176 Est Patient Exp Problem - 66340 Est Patient Exp Problem - 82216 Ofc Vst, Est Level III Est Patient Detailed - 52027 First Vx - Ix admin via ID IM or jet injects without counseling by physician Menactra Intramuscular Injectable Vision Vaccines Ordered - Print Consent/Declination Forms Ofc Vst, Est Level IV Xray - Chest - 2 Views - InHouse Handling of specimen for transfer Venipuncture Est Patient Detailed - 05981 Dispensing Visit (UNLIVSTED OPHTHALMOLOGICAL SERVICE/PROCEDURE) INFLUENZA VACCINE QUADRIVALENT 3 YRS PLUS IM Pneumovax Vaccine PPSV23 Admin of Vaccine - Injection - Each Add'l Admin of Vaccine - Injection - 1 Est Patient Detailed - 02110 Progressive lens, per lens Frames, purchases Est Patient Comprehensive Opth - 41616 New Patient Intermediate Opth - 10609 Est Patient Detailed - 82419 Est Patient Detailed - 33751 Est Patient Detailed - 57399 Est Patient Detailed - 33493 Est Patient Exp Problem - 77855 Est Patient Detailed - 33578 Diagnostic evaluation with medical - 98376 INFLUENZA VACCINE QUADRIVALENT 3 YRS PLUS IM Admin of Vaccine - Injection - 1 Est Patient Detailed - 16793 Est Patient Detailed - 95667 Prevnar (PCV13) IM TDAP Admin of Vaccine - Injection - Each Add'l Admin of Vaccine - Injection - 1 Est Patient Well Exam (40 - 64 Yrs) - 67614 [facility] - Psychiatry Diagnostic evaluation (no medical) - 55097 [facility] Assessment - Drying Machine Back Tender Primary Care Service [facility] Xray - Chest - PA & Lat - InHouse Primary Care Service [facility] Handling of specimen for transfer Venipuncture Integrated Behavioral Health Assessment (IBH) New Patient Well Exam (40 - 64 Yrs) - 04878 Handling of specimen for transfer Venipuncture HISTORY OF PROCEDURES Procedure Date Procedure Name Provider Procedure Notes Status Est Patient Comprehensive Opt - 39152 Edgard Martin completed Est Patient Intermediate Opt - 70656 Chriss Martin completed First Vx - Ix admin via ID IM or jet injects without counseling by physician Nela Schroeder completed Menactra Intramuscular Injectable Nela Schroeder completed Vaccines Ordered - Print Consent/Declination Forms Nela Schroeder completed Venipuncture Sandra Monge completed Dispensing Visit (UNLIVSTED OPHTHALMOLOGICAL SERVICE/PROCEDURE) Jazmin Bullard completed Progressive lens, per lens Jazmin Bullard completed Frames, purchases Jazmin Respicardia Frame #1111 (Pd 60.00) completed Est Patient Comprehensive Opt - 80366 Edgard Martin completed New Patient Intermediate Opt - 71082 Chriss Martin completed Diagnostic evaluation with medical - 65631 Buck Ledesma completed [facility] Maximus Yancey Time spent with patient: 30 completed Diagnostic evaluation (no medical) - 52487 Jasper Bobo completed [facility] Assessment - Drying Machine Back Tender Jasper Bobo completed Primary Care Service Link[facility] Maximus Yancey Time spent with patient: 30 completed Primary Care Service [facility] Maximus Yancey Time spent with patient: 30 completed Venipuncture Sandra Monge completed Venipuncture Sandra Monge completed GOALS No Information Available HEALTH CONCERNS No Information Available
--- NOTE | 2020-02-03 02:45 | NUR ---
PER . PT TO BE MSE.
[2020-02-03 02:50] VITALS: BP 126/83
[2020-02-04] MEDS ORDERED: TIVICAY50 MG PO (21:10)
[2020-02-04] MEDS ORDERED: VASOTEC5 MG PO (21:10)
[2020-02-04] MEDS ORDERED: PROZAC20 MG PO (21:10)
[2020-02-04] MEDS ORDERED: PIFELTRO100 MG PO (21:10)
[2020-02-04] MEDS ORDERED: METOPROLOL SUCC50 MG PO (21:10)
[2020-02-04] MEDS ORDERED: LEVALBUTEROL TA15 GM IH (21:10)
== END 2020-02-03 02:52 | disposition left against medical advice (07) ==
LOC: FSED 02:16
DX: G47.00 Insomnia, unspecified (principal)

== ENCOUNTER 2020-02-03 08:33 | Emergency (ER) | payer SELFPAY ==
[~2020-02-03] VITALS: Ht 182.9 cm; Wt 61.2 kg
[2020-02-04] MEDS ORDERED: PIFELTRO100 MG PO (21:10)
[2020-02-04] MEDS ORDERED: PROZAC20 MG PO (21:10)
[2020-02-04] MEDS ORDERED: METOPROLOL SUCC50 MG PO (21:10)
[2020-02-04] MEDS ORDERED: VASOTEC5 MG PO (21:10)
[2020-02-04] MEDS ORDERED: LEVALBUTEROL TA15 GM IH (21:10)
[2020-02-04] MEDS ORDERED: TIVICAY50 MG PO (21:10)
== END 2020-02-03 09:37 | disposition home or self-care (01) ==
LOC: ER 08:33
DX: F51.04 Psychophysiologic insomnia (principal); I10 Essential (primary) hypertension; J44.9 Chronic obstructive pulmonary disease, unspecified; B20 Human immunodeficiency virus [HIV] disease; F41.9 Anxiety disorder, unspecified; F17.210 Nicotine dependence, cigarettes, uncomplicated
CPT/HCPCS: 99283

== ENCOUNTER 2020-02-03 21:19 | Inpatient (IN) | payer SELFPAY ==
[~2020-02-03] VITALS: Ht 182.9 cm; Wt 60.5 kg
--- NOTE | 2020-02-03 21:20 | NUR ---
PT TO ROOM AND PLACED IN GOWN AND ON CARDIAC MACHINE, NO ACUTE DISTRESS NOTED AT THIS TIME; RESP EVEN/UNLABORED; SKIN WNL; NO NEURO DEFICITS NOTED; EQUAL HAND HEALTH COORDINATOR; PT HAS UPRIGHT AND STEADY GAIT; PT STATED HE FEELS DEHYDRATED AND UNABLE TO URINATE AT THIS TIME, PT APPEARS ANXIOUS AND JUST KEEPS STATING HE DOESNT FEEL GOOD.
[2020-02-03] MEDS ORDERED: SODIUM CHLORIDE 0.9% 1000ML 1,000 ML IV ONE (22:00)
[2020-02-03 22:03] LABS: BASOPHILS % 0.1 % (0.0-1.0); EOSINOPHILS % 0.2 % (0.0-6.0); HEMATOCRIT 36.3 % (38.2-49.6); LYMPHOCYTES # (AUTO) 1.5 (1.0-3.2); LYMPHOCYTES % 12.9 % (18.0-39.1); MEAN CORPUSCULAR HEMOGLOBIN 33.6 pg (28-32); MEAN CORPUSCULAR HGB CONC 38.6 g/dL (31-35); MEAN CORPUSCULAR VOLUME 87.1 fL (81-99); MONOCYTES # (AUTO) 1.6 (0.2-0.8); MONOCYTES % 13.7 % (4.4-11.3); NEUTROPHILS # (AUTO) 8.6 (2.1-6.9); NEUTROPHILS % 72.4 % (38.7-80.0); PLATELET COUNT 152 x10e3/uL (140-360); RED BLOOD COUNT 4.17 x10e6/uL (4.3-5.7); RED CELL DISTRIBUTION WIDTH 10.9 % (11.7-14.4)
[2020-02-03] MEDS ORDERED: SODIUM CHLORIDE 0.9% 1000ML 1,000 ML ONE (22:06)
[2020-02-03 22:19] LABS: ANION GAP 21.7 mmol/L (8-16); BLOOD UREA NITROGEN 10 mg/dL (7-26); BUN/CREATININE RATIO 8 (6-25); CALCIUM 9.7 mg/dL (8.4-10.2); CARBON DIOXIDE 29 mmol/L (22-29); CHLORIDE 58 mmol/L (98-107); CREATININE, SERUM 1.21 mg/dL (0.72-1.25); EST GLOMERULAR FILTRATION RATE > 60 ML/MIN (60-); GLUCOSE 98 mg/dL (74-118)
[2020-02-03 22:27] LABS: POTASSIUM 2.7 mmol/L (3.5-5.1); SODIUM 106 mmol/L (136-145)
--- NOTE | 2020-02-03 22:28 | Diagnostic Imaging Report ---
EXAMINATION: CHEST 2 VIEWS INDICATION: ^SOB, H/PO COPD ^[id number] ^2199 ^Y COMPARISON: None FINDINGS: PA and lateral views TUBES and LINES: None. LUNGS: Diffuse hyperinflation. There is no evidence of pneumonia or pulmonary edema. No mass. PLEURA: No pleural effusion or pneumothorax. Bilateral costophrenic angle blunting suggesting pleural thickening. HEART AND MEDIASTINUM: The cardiomediastinal silhouette is unremarkable.. BONES AND SOFT TISSUES: No focal osseous lesions. Soft tissues are unremarkable. UPPER ABDOMEN: Unremarkable. IMPRESSION: Diffuse air trapping without pneumothorax. No infiltrates. Signed by: Dr. Gregg Billings MD on 02/03/2020 10:24 PM
[2020-02-03] MEDS ORDERED: POTASSIUM CHLORIDE 20 MEQ TAB CR PO STA (22:44)
[2020-02-03] MEDS ORDERED: ONDANSETRON HCL INJ 2MG/ML 2ML 2 MG/ML VIAL IV PRN (22:45)
--- OUTSIDE RECORDS SUMMARY | 2020-02-03 22:57 | XMS REPORT ---
Author Author [facility] Address Unknown Phone Unavailable Care Team Providers Care Temporary Receptionist Name Role Phone Joi HAM Unavailable Unavailable Problems This patient has no known problems. Allergies, Adverse Reactions, Alerts This patient has no known allergies or adverse reactions. Medications This patient has no known medications. Results Test Description Test Time Test Comments Text Results Atomic Results Result Comments CHEST 2 VIEWS 2020-02-03 22:23:00 [facility] [address] [address] Patient Name: WHITNEY MORALES MR #: [id number] : 1975 Age/Sex: 44/M Req #: [id number] Adm Physician: Ordered by: GALLO HAM MD Report #: [id number] Location: ER Room/Bed: Procedure: [id number] DX/CHEST 2 VIEWS Exam Date: 02/03/20 Exam Time: 2199 REPORT STATUS: Signed EXAMINATION: CHEST 2 VIEWS INDICATION: SOB, H/PO COPD [id number] Y COMPARISON: None FINDINGS: PA and lateral views TUBES and LINES: None. LUNGS: Diffuse hyperinflation. There is no evidence of pneumonia or pulmonary edema. No mass. PLEURA: No pleural effusion or pneumothorax. Bilateral costophrenic angle blunting suggesting pleural thickening. HEART AND MEDIASTINUM: The cardiomed iastinal silhouette is unremarkable.. BONES AND SOFT TISSUES: No focal osseous lesions. Soft tissues are unremarkable. UPPER ABDOMEN: Unremarkable. IMPRESSION: Diffuse air trapping without pneumothorax. No infiltrates. Signed by: Dr. Braydon Billings MD on 02/03/2020 10:24 PM Dictated By: BRAYDON BILLINGS MD 23 Transcribed By: BETO on 02/03/202223 COPY TO: GALLO HAM MD
[2020-02-03] MEDS: FOLIC ACID 1 MG TAB PO SCH (23:10)
[2020-02-03] MEDS: THIAMINE HCL 100 MG TAB PO SCH (23:10)
[2020-02-03] MEDS: KCL 20MEQ/.9 SOD CHL 1,000 ML IV SCH (23:10)
--- NOTE | 2020-02-03 23:18 | NUR ---
PT TO BE ADMITTED TO ICU, PT AWARE OF POC, VITAL SIGNS STABLE,
[2020-02-04] VITALS (25 sets, daily range): BP systolic 105–149; BP diastolic 67–99
--- NOTE | 2020-02-04 | NUR ---
Received to 190 from ER. Placed on EKG, pulse ox & NBP for monitoring. Room air with sats 98-100%. IV NS with 20KCL @ 50ml/hr. Admission history, initial admission assessmet and vaccine history completed.
--- NOTE | 2020-02-04 01:00 | NUR ---
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 I asked "Are you sure". Repeated that he wanted me to throw them away.
[2020-02-04 01:10] LABS: AMPHETAMINES SCREEN,URINE NEGATIVE (NEGATIVE); BENZODIAZEPINES SCREEN,URINE NEGATIVE (NEGATIVE); BILIRUBIN,URINE NEGATIVE (NEGATIVE); CLARITY,URINE CLEAR (CLEAR); COLOR,URINE YELLOW (YELLOW); KETONES,URINE TRACE (NEGATIVE); LEUKOCYTE ESTERASE ,URINE NEGATIVE (NEGATIVE); NITRITE,URINE NEGATIVE (NEGATIVE); PHENCYCLIDINE SCREEN,URINE NEGATIVE (NEGATIVE); PROTEIN,URINE DIPSTICK 1+ (NEGATIVE); URINE UROBILINOGEN 0.2 mg/dL (0.2 - 1)
--- NOTE | 2020-02-04 01:15 | NUR ---
Blood drawn for lab.
[2020-02-04 01:16] LABS: BACTERIA,URINE FEW /HPF; EPITHELIAL CELLS,URINE FEW /LPF; RBC,URINE 0-5 /HPF (0-5); RENAL EPITHELIAL CELLS,URINE FEW; TRANSITIONAL EPI CELLS,URINE FEW; WBC,URINE (MAN) 0-5 /HPF (0-5)
[2020-02-04 01:52] LABS: ANION GAP 17.9 mmol/L (8-16); BLOOD UREA NITROGEN 10 mg/dL (7-26); BUN/CREATININE RATIO 10 (6-25); CALCIUM 9.7 mg/dL (8.4-10.2); CARBON DIOXIDE 28 mmol/L (22-29); CHLORIDE 62 mmol/L (98-107); CREATININE, SERUM 1.02 mg/dL (0.72-1.25); EST GLOMERULAR FILTRATION RATE > 60 ML/MIN (60-); GLUCOSE 98 mg/dL (74-118)
[2020-02-04 01:59] LABS: SODIUM 105 mmol/L (136-145)
[2020-02-04 02:00] LABS: POTASSIUM 2.9 mmol/L (3.5-5.1)
--- NOTE | 2020-02-04 02:10 | NUR ---
Call to Dr. Ortiz. Awaiting call back.
--- NOTE | 2020-02-04 02:12 | NUR ---
Dr. Villatoro called back. Advised of Sodium & potassium. Orders given.
[2020-02-04] MEDS ORDERED: POTASSIUM CHLORIDE 20 MEQ TAB CR PO STA (02:13)
--- NOTE | 2020-02-04 02:15 | NUR ---
Potassium 40 mEq po given.
--- NOTE | 2020-02-04 02:50 | NUR ---
Vomited dark green emesis. Medicated with Zofran,
[2020-02-04 05:42] LABS: ANION GAP 18.3 mmol/L (8-16); BLOOD UREA NITROGEN 10 mg/dL (7-26); BUN/CREATININE RATIO 11 (6-25); CALCIUM 9.2 mg/dL (8.4-10.2); CARBON DIOXIDE 29 mmol/L (22-29); CHLORIDE 63 mmol/L (98-107); EST GLOMERULAR FILTRATION RATE > 60 ML/MIN (60-); GLUCOSE 88 mg/dL (74-118); POTASSIUM 3.3 mmol/L (3.5-5.1)
[2020-02-04 05:46] LABS: SODIUM 107 mmol/L (136-145)
--- NOTE | 2020-02-04 06:15 | NUR ---
Paged Dr. Ortiz re: labs. Awaiting call back.
[2020-02-04] MEDS ORDERED: POTASSIUM CHLORIDE 20 MEQ TAB CR PO ONE ×2 (06:45→11:58)
--- NOTE | 2020-02-04 07:53 | NUR ---
GAVE PACKET OF INFORMATION WITH [facility] FOR ASSISTANCE WITH LOW TO NO INCOME TO PATIENT. RESOURCES THAT PATIENT MAY BE ABLE TO FOLLOW UP UPON DISCHARGE. PT EDUCATED ON EACH RESOURCE AND UNDERSTANDING HOW TO FOLLOW UP TO SEE IF QUALIFIED FOR EACH RESOURCE.
[2020-02-04] MEDS: SODIUM CHLORIDE 1 GM TAB PO SCH ×3 (08:26→18:06)
[2020-02-04] MEDS: FOLIC ACID 1 MG TAB PO SCH (08:26)
[2020-02-04] MEDS: THIAMINE HCL 100 MG TAB PO SCH (08:26)
[2020-02-04] MEDS ORDERED: LORAZEPAM INJ 2 MG/ML VIAL ONE (08:39)
[2020-02-04] MEDS: LORAZEPAM INJ 2 MG/ML VIAL IV PRN ×2 (08:40→12:19)
--- NOTE | 2020-02-04 08:41 | Consultation ---
DATE OF CONSULTATION: 02/04/2020 Renal Consultation REASON FOR CONSULTATION: Hyponatremia and hypokalemia. HISTORY OF PRESENT ILLNESS: A 44-year-old male with history of HIV, hypertension, and hyponatremia, who presented to [facility], because he was feeling "terrible." The patient had multiple complaints including hallucinations, shortness of breath, insomnia, and severe fatigue. The patient apparently was in his normal state of health until approximately one week ago when he developed congestion and fatigue. He went to [facility], was given Medrol Dosepak and azithromycin. He denies having any fever or cough at that time. The patient has had insomnia and has not been eating, but has been drinking at least 9 to 10 beers daily. The patient's symptoms progressively got worse and he eventually presented to [facility]. When he arrived, his blood pressure is 102/74 with a heart rate of 90 and temperature of 98.2 and 100% saturation on room air. The patient was found to have severe hyponatremia, suspected beer potomania, hypokalemia, and Nephrology consultation was called. The patient has been also taking Naprosyn for pain. REVIEW OF SYSTEMS: A 12-point review of systems completed. All systems negative other than in the HPI above. PAST MEDICAL HISTORY: 1. History of hyponatremia. 2. HIV for more than 20 years. 3. COPD. 4. Hypertension. PAST SURGICAL HISTORY: 1. Tympanoplasty in 1982. 2. Lipoma removed. 3. Sebaceous cyst removed. SOCIAL HISTORY: At least 9-10 beers daily. Positive tobacco. Denies IV drugs. FAMILY HISTORY: Positive for diabetes. ALLERGIES: NO KNOWN DRUG ALLERGIES. CURRENT MEDICATIONS: See list. Home medications does not recall except for Bactrim and Naprosyn. PHYSICAL EXAMINATION: VITAL SIGNS: Blood pressure 126/91, pulse 88, respiratory rate 17,and temperature 98.3. GENERAL: In no apparent distress. HEENT: Oropharynx clear. No scleral icterus. No peripheral edema. NECK: Supple. No elevation in jugular venous pressure. CHEST: Clear to auscultation anteriorly bilaterally. CARDIOVASCULAR: Regular rhythm. No murmurs or rubs. ABDOMEN: Soft. Positive bowel sounds. No tenderness. No rebound. EXTREMITIES: No edema. No clubbing. No cyanosis. SKIN: Warm. IMAGING: Chest x-ray, diffuse air trapping without pneumothorax, no infiltrate. LABORATORY DATA: Sodium was 107, was 106 on admission, potassium 3.3, chloride 63, CO2 29, BUN 10, creatinine 0.9. White count 11.7, hemoglobin 14, hematocrit 36, platelets 152. Urine, 1+ protein, trace ketones, 1-5 granular casts. Urine sodium 25, urine osmolarity pending. ASSESSMENT AND PLAN: 1. Severe hyponatremia, chronic, asymptomatic, suspect secondary to multiple reasons including beer potomania, non-steroidal anti-inflammatory drugs, and possibly medication/HIV related. The patient has not been eating, but just drinking beer for the last five days. We will add sodium chloride tablets. Continue with normal saline with 20 mEq of potassium chloride at 50 mL an hour and continue checking sodium q.6 hours. The patient is at high risk for osmotic demyelination syndrome. We will raise his sodium no faster than 0.25 millimoles per liter per hour with a goal of reaching 112 this evening and await for urine osmolarity. 2. Volume depleted on exam. Continue with IV fluids as above. 3. Human immunodeficiency virus. Nurse to call pharmacy and get his medications. 4. Hypertension. Blood pressure currently controlled. 5. Chronic obstructive pulmonary disease, compensated. MD NAYELI Galvez/MODL /[id number]
--- NOTE | 2020-02-04 08:43 | NUR ---
pt was observed what appeared to be a seizure. pt also stated to dr crandall of daily alcohol intake being "9-10 beers a day". updated dr torres, new orders recvd. pt stable and resting but anxious at this time
[2020-02-04 09:34] LABS: ANION GAP 19.4 mmol/L (8-16); BLOOD UREA NITROGEN 10 mg/dL (7-26); BUN/CREATININE RATIO 9 (6-25); CALCIUM 9.6 mg/dL (8.4-10.2); CARBON DIOXIDE 27 mmol/L (22-29); CHLORIDE 65 mmol/L (98-107); EST GLOMERULAR FILTRATION RATE > 60 ML/MIN (60-); GLUCOSE 103 mg/dL (74-118); POTASSIUM 3.4 mmol/L (3.5-5.1)
[2020-02-04 09:38] LABS: SODIUM 108 mmol/L (136-145)
[2020-02-04] MEDS ORDERED: CHLORDIAZEPOXIDE HCL 25 MG CAP PO SCH (12:00)
[2020-02-04] MEDS ORDERED: ACETAMINOPHEN 325 MG TAB PO PRN (13:00)
[2020-02-04] MEDS ORDERED: ALBUTEROL/IPRATROPIUM 3 ML NEB NEB PRN (13:00)
[2020-02-04] MEDS ORDERED: BENZONATATE 100 MG CAP PO PRN (13:00)
[2020-02-04] MEDS: ALBUTEROL/IPRATROPIUM 3 ML NEB NEB SCH ×2 (13:00→20:20)
[2020-02-04] MEDS: CHLORDIAZEPOXIDE HCL 25 MG CAP PO SCH ×2 (13:01→21:30)
[2020-02-04] MEDS: NICOTINE 21 MG/EA PATCH TOP SCH (13:56)
[2020-02-04 15:29] LABS: ANION GAP 15.8 mmol/L (8-16); BLOOD UREA NITROGEN 10 mg/dL (7-26); BUN/CREATININE RATIO 10 (6-25); CALCIUM 9.5 mg/dL (8.4-10.2); CARBON DIOXIDE 30 mmol/L (22-29); CHLORIDE 68 mmol/L (98-107); CREATININE, SERUM 1.04 mg/dL (0.72-1.25); EST GLOMERULAR FILTRATION RATE > 60 ML/MIN (60-); GLUCOSE 86 mg/dL (74-118); POTASSIUM 3.8 mmol/L (3.5-5.1)
[2020-02-04 15:34] LABS: SODIUM 110 mmol/L (136-145)
[2020-02-04] MEDS: KCL 20MEQ/.9 SOD CHL 1,000 ML IV SCH (16:39)
[2020-02-04] MEDS: ENOXAPARIN SOD INJ 40 MG/0.4 ML SYR SC SCH (18:06)
--- NOTE | 2020-02-04 19:02 | NUR ---
pt rested through shift. levels of confusion vary. vs stable.
--- NOTE | 2020-02-04 19:16 | NUR ---
1800 bmp results still pending, night nurse made aware to call dr corrales with results
[2020-02-04 19:32] LABS: ANION GAP 17.8 mmol/L (8-16); BLOOD UREA NITROGEN 10 mg/dL (7-26); BUN/CREATININE RATIO 10 (6-25); CALCIUM 9.5 mg/dL (8.4-10.2); CARBON DIOXIDE 27 mmol/L (22-29); CHLORIDE 72 mmol/L (98-107); CREATININE, SERUM 1.01 mg/dL (0.72-1.25); EST GLOMERULAR FILTRATION RATE > 60 ML/MIN (60-); GLUCOSE 91 mg/dL (74-118); POTASSIUM 3.8 mmol/L (3.5-5.1)
[2020-02-04 19:40] LABS: SODIUM 113 mmol/L (136-145)
--- NOTE | 2020-02-04 20:15 | NUR ---
lab results called to dr soria. orders received to d/c ivf, continue bmp q6h, call with next results only if Na is greater than 115.
--- NOTE | 2020-02-04 21:00 | NUR ---
Spoke with Dr Santos, orders received to continue home meds. Patient family member brought new unopened bottles of antiviral meds. Call placed to pharmacy to verify meds, was instructed to use pill identifier in clinical pharmacaology to very meds. Meds were in sealed factory bottles with prescription labels attached. bottles opened and pills identified as being the medications as labeled per matching picture and imprint using clinical pharmacology pill identifier.
[2020-02-04] MEDS ORDERED: PIFELTRO100 MG PO (21:10)
[2020-02-04] MEDS ORDERED: TIVICAY50 MG PO (21:10)
[2020-02-04] MEDS ORDERED: VASOTEC5 MG PO (21:10)
[2020-02-04] MEDS ORDERED: PROZAC20 MG PO (21:10)
[2020-02-04] MEDS ORDERED: METOPROLOL SUCC50 MG PO (21:10)
[2020-02-04] MEDS ORDERED: LEVALBUTEROL TA15 GM IH (21:10)
[2020-02-04] MEDS ORDERED: TRAMADOL HCL 50 MG TAB PO PRN (21:15)
[2020-02-04] MEDS ORDERED: FLUOXETINE HCL 20 MG CAP ONE (21:28)
[2020-02-04] MEDS: FLUOXETINE HCL 20 MG CAP PO SCH (21:30)
[2020-02-04] MEDS: HOME MEDICATION--PATIENTS OWN PO SCH ×2 (21:30)
[2020-02-05] VITALS (16 sets, daily range): BP systolic 107–145; BP diastolic 67–96
[2020-02-05 01:15] LABS: ANION GAP 14.5 mmol/L (8-16); BLOOD UREA NITROGEN 9 mg/dL (7-26); BUN/CREATININE RATIO 9 (6-25); CALCIUM 8.9 mg/dL (8.4-10.2); CARBON DIOXIDE 24 mmol/L (22-29); CHLORIDE 78 mmol/L (98-107); CREATININE, SERUM 0.96 mg/dL (0.72-1.25); EST GLOMERULAR FILTRATION RATE > 60 ML/MIN (60-); GLUCOSE 90 mg/dL (74-118); POTASSIUM 5.5 mmol/L (3.5-5.1)
[2020-02-05 01:21] LABS: SODIUM 111 mmol/L (136-145)
[2020-02-05 05:07] LABS: BASOPHILS % 0.1 % (0.0-1.0); EOSINOPHILS # (AUTO) 0.1 (0.0-0.4); EOSINOPHILS % 0.6 % (0.0-6.0); HEMATOCRIT 33.5 % (38.2-49.6); HEMOGLOBIN 12.5 g/dL (14.0-18.0); LYMPHOCYTES # (AUTO) 1.5 (1.0-3.2); LYMPHOCYTES % 14.2 % (18.0-39.1); MEAN CORPUSCULAR HEMOGLOBIN 32.7 pg (28-32); MEAN CORPUSCULAR HGB CONC 37.3 g/dL (31-35); MEAN CORPUSCULAR VOLUME 87.7 fL (81-99); MONOCYTES % 9.8 % (4.4-11.3); NEUTROPHILS # (AUTO) 7.8 (2.1-6.9); NEUTROPHILS % 74.6 % (38.7-80.0); PLATELET COUNT 142 x10e3/uL (140-360); RED BLOOD COUNT 3.82 x10e6/uL (4.3-5.7); RED CELL DISTRIBUTION WIDTH 10.9 % (11.7-14.4)
[2020-02-05 05:51] LABS: ANION GAP 14.2 mmol/L (8-16); BLOOD UREA NITROGEN 9 mg/dL (7-26); BUN/CREATININE RATIO 10 (6-25); CALCIUM 9.3 mg/dL (8.4-10.2); CARBON DIOXIDE 25 mmol/L (22-29); CHLORIDE 77 mmol/L (98-107); CREATININE, SERUM 0.94 mg/dL (0.72-1.25); EST GLOMERULAR FILTRATION RATE > 60 ML/MIN (60-); GLUCOSE 88 mg/dL (74-118); MAGNESIUM 1.9 MG/DL (1.3-2.1); PHOSPHORUS 0.8 MG/DL (2.3-4.7); POTASSIUM 3.2 mmol/L (3.5-5.1)
[2020-02-05 06:03] LABS: SODIUM 113 mmol/L (136-145)
[2020-02-05] MEDS: CHLORDIAZEPOXIDE HCL 25 MG CAP PO SCH ×3 (06:28→21:58)
--- NOTE | 2020-02-05 06:47 | NUR ---
Call placed to Dr Ortiz to report AM labs, awaiting return call
[2020-02-05] MEDS ORDERED: POTASSIUM CHLORIDE 20 MEQ TAB CR PO STA (06:50)
--- NOTE | 2020-02-05 06:51 | NUR ---
Dr Rashid returned call, new orders received for PO potassium replacement
[2020-02-05] MEDS: ALBUTEROL/IPRATROPIUM 3 ML NEB NEB SCH ×5 (07:00→18:50)
[2020-02-05] MEDS: THIAMINE HCL 100 MG TAB PO SCH (08:58)
[2020-02-05] MEDS: FLUOXETINE HCL 20 MG CAP PO SCH (08:58)
[2020-02-05] MEDS: NICOTINE 21 MG/EA PATCH TOP SCH (08:58)
[2020-02-05] MEDS: HOME MEDICATION--PATIENTS OWN PO SCH ×2 (08:58)
[2020-02-05] MEDS: CYANOCOBALAMIN INJ 1,000 MCG/ML VIAL IM SCH (08:58)
[2020-02-05] MEDS: FOLIC ACID 1 MG TAB PO SCH (08:58)
[2020-02-05] MEDS: SODIUM CHLORIDE 1 GM TAB PO SCH ×2 (08:58→12:55)
[2020-02-05] MEDS ORDERED: NICOTINE 21 MG/EA PATCH TOP SCH (09:00)
[2020-02-05] MEDS ORDERED: HOME MEDICATION--PATIENTS OWN PO SCH ×2 (09:00)
[2020-02-05 13:22] LABS: ANION GAP 14.7 mmol/L (8-16); BLOOD UREA NITROGEN 9 mg/dL (7-26); BUN/CREATININE RATIO 8 (6-25); CALCIUM 9.8 mg/dL (8.4-10.2); CARBON DIOXIDE 29 mmol/L (22-29); CHLORIDE 79 mmol/L (98-107); CREATININE, SERUM 1.14 mg/dL (0.72-1.25); EST GLOMERULAR FILTRATION RATE > 60 ML/MIN (60-); GLUCOSE 164 mg/dL (74-118); POTASSIUM 3.7 mmol/L (3.5-5.1)
[2020-02-05 13:23] LABS: SODIUM 119 mmol/L (136-145)
--- NOTE | 2020-02-05 13:55 | NUR ---
RCD PT FROM ICU BY WHEEL CHAIR PT IS ALERT AND ORIENTED VITALS CHECKED PT RESTING ON BED BED LOW AND LOCKED CALL LIGHT IN REACH
[2020-02-05] MEDS: ENOXAPARIN SOD INJ 40 MG/0.4 ML SYR SC SCH (16:56)
[2020-02-05 18:32] LABS: ANION GAP 15.4 mmol/L (8-16); BLOOD UREA NITROGEN 12 mg/dL (7-26); BUN/CREATININE RATIO 10 (6-25); CALCIUM 9.9 mg/dL (8.4-10.2); CARBON DIOXIDE 29 mmol/L (22-29); CHLORIDE 81 mmol/L (98-107); CREATININE, SERUM 1.17 mg/dL (0.72-1.25); EST GLOMERULAR FILTRATION RATE > 60 ML/MIN (60-); GLUCOSE 161 mg/dL (74-118); POTASSIUM 3.4 mmol/L (3.5-5.1); SODIUM 122 mmol/L (136-145)
--- NOTE | 2020-02-05 18:40 | NUR ---
PT RESTING ON BED BED SIDE REPORT GIVEN TO ONCOMING NURSE
--- NOTE | 2020-02-05 19:09 | NUR ---
PAGED DR BENITEZ TO NOTIFY THE LABS
--- NOTE | 2020-02-05 19:56 | NUR ---
SPOKE TO DR. POWER COVERING FOR DR. JHA AT THIS TIME. NEW ORDERS RECEIVED FOR POTASSIUM 40MG PO ONCE, STOP Q6H BMP, CHECK BMP AND MAGNESIUM TOMORROW AT 0600, INCREASE FLUID RESTRICTION TO 1.5L.
[2020-02-05] MEDS ORDERED: POTASSIUM CHLORIDE 20 MEQ TAB CR PO ONE (20:00)
[2020-02-06] VITALS: BP 142/94
[2020-02-06] MEDS: ALBUTEROL/IPRATROPIUM 3 ML NEB NEB SCH ×2 (01:00→07:30)
[2020-02-06 06:00] VITALS: BP 127/92
[2020-02-06] MEDS: CHLORDIAZEPOXIDE HCL 25 MG CAP PO SCH (06:14)
[2020-02-06 06:36] LABS: ANION GAP 12.1 mmol/L (8-16); BLOOD UREA NITROGEN 11 mg/dL (7-26); BUN/CREATININE RATIO 10 (6-25); CALCIUM 9.8 mg/dL (8.4-10.2); CARBON DIOXIDE 28 mmol/L (22-29); CHLORIDE 87 mmol/L (98-107); CREATININE, SERUM 1.09 mg/dL (0.72-1.25); EST GLOMERULAR FILTRATION RATE > 60 ML/MIN (60-); GLUCOSE 95 mg/dL (74-118); POTASSIUM 4.1 mmol/L (3.5-5.1); SODIUM 123 mmol/L (136-145)
--- NOTE | 2020-02-06 07:10 | NUR ---
RCD PT AT BED PT IS ALERT AND ORIENTED PT RESTING ON BED NO SIGNS OF ANY DISTRESS NOTED IV PATENT BED LOW AND LOCKED CALL LIGHT IN REACH
[2020-02-06 08:26] VITALS: BP 135/97
[2020-02-06 08:50] VITALS: BP 135/97
[2020-02-06] MEDS: NICOTINE 21 MG/EA PATCH TOP SCH (09:00)
[2020-02-06] MEDS: CYANOCOBALAMIN INJ 1,000 MCG/ML VIAL IM SCH (09:00)
[2020-02-06] MEDS ORDERED: SODIUM CHLORIDE 1 GM TAB PO SCH ×2 (09:00)
[2020-02-06] MEDS: THIAMINE HCL 100 MG TAB PO SCH (09:00)
[2020-02-06] MEDS: FOLIC ACID 1 MG TAB PO SCH (09:00)
[2020-02-06] MEDS: HOME MEDICATION--PATIENTS OWN PO SCH ×2 (09:00)
[2020-02-06] MEDS: FLUOXETINE HCL 20 MG CAP PO SCH (09:00)
[2020-02-06] MEDS ORDERED: LIBRIUM PO (10:48)
[2020-02-06] MEDS ORDERED: NEBULIZER (10:48)
[2020-02-06] MEDS ORDERED: ALBUTEROL0.63 MG/3 INH (10:49)
--- NOTE | 2020-02-06 11:37 | NUR ---
PT WENT HOME IN SAFE CONDITION WITH HIS FRIEND
--- NOTE | 2020-02-06 12:08 | Discharge Summary ---
[employer] [place]: Dr. Miguelito Ortiz. FINAL DIAGNOSIS: Severe hyponatremia on hypokalemia secondary to alcoholism and drinking many beers. SUMMARY: A 44-year-old male, alcoholic, HIV, COPD, came in to the hospital with a very low sodium level of 106. The patient was having hallucination and fatigueness, but there was no other significant problem of chest pain or shortness of breath. He was drinking approximately 9 to 12 beers per day. He was also hypokalemic. Those number has been better and his sodium is 123, potassium 4.1, chloride 87, bicarb 20, BUN 11, creatinine 1.09. The patient is otherwise stable. Discussed with the patient at length and he is saying that he is no longer will be drinking or smoking. He does request a nebulizer and medication for that and his COPD. He does have a family physician where he go and get his medication. He is a patient of the [facility]. The patient is stable, discharged home. No more alcohol consumption and smoking tobacco as the patient already wishes. He will take albuterol 0.083% nebs q.4 hours as needed and Librium 25 mg one q.6 hours as needed for alcohol withdrawal symptoms. I will give the patient 30 tablets only. The patient has to follow up with his family physician for further evaluation and treatment of his alcoholism and tobacco cessation. The patient is stable and discharged today. MD KEVIN Back/AMANDAL /[id number]
== END 2020-02-06 11:37 | disposition home or self-care (01) | DRG 641 ==
LOC: ER 21:19 → ERHOLD 22:47 → ICU 23:57 → MED/SURG 02-05 13:37
PROVIDERS: ADMIT Internal Medicine; ATTEND Internal Medicine
DX: E87.1 Hypo-osmolality and hyponatremia (principal); F10.251 Alcohol dependence with alcohol-induced psychotic disorder with hallucinations; E87.6 Hypokalemia; F17.210 Nicotine dependence, cigarettes, uncomplicated; I10 Essential (primary) hypertension; Z21 Asymptomatic human immunodeficiency virus [HIV] infection status; Z83.3 Family history of diabetes mellitus
CPT/HCPCS: 36415; 71046; 80048; 80307; 81001; 82607; 82746; 83735; 83935; 84100; 84300; 84443; 85025; 99284; J1650; J2060; J2405; J3411; J3420; J7030

== ENCOUNTER 2020-02-10 13:53 | Emergency (ER) | payer SELFPAY ==
[~2020-02-10] VITALS: Ht 182.9 cm; Wt 60.3 kg
[~2020-02-10 13:53] MED LIST changes: +ALBUTEROL0.63 MG/3 INH; +LEVALBUTEROL TA15 GM IH; +LIBRIUM PO; +METOPROLOL SUCC50 MG PO; +NEBULIZER; +PIFELTRO100 MG PO; +PROZAC20 MG PO; +TIVICAY50 MG PO; +VASOTEC5 MG PO
--- OUTSIDE RECORDS SUMMARY | 2020-02-10 14:13 | XMS REPORT ---
Author Author Admin, Kerrick Organization Unknown Address Unknown Phone Unavailable PROBLEMS [...] active Sandra Monge Immunization update completed - Nelairina Blackh Hx Latent tuberculosis, s/p INH/B6 active Sandra Monge Stop date 03/16/18 COPD active Sandra Monge seen on CXR TOBACCO USE DISORDER, MODERATE active Jasper Garduno ALCOHOL USE DISORDER, MODERATE active Jasper Garduno DEPRESSIVE DISORDER, OTHER SPECIFIED active Jasper Garduno Screening for hypercholesterolemia completed - Nelairina Canasnth ENCOUNTERS Date Type Provider Location Encounter Diagnosis - Ambulatory Encounter Nela Wayneh Nelairina Blackh Dorothy Pineda [facility] Adult Medicine UNK - Ambulatory Encounter Dorothy Dun[facility] Contact Center UNK - Ambulatory Encounter Marcelino Flores [facility] Behavioral Health UNK - Ambulatory Encounter Nela Santiikanth Nela Santiikanth [facility] Adult Medicine UNK - Ambulatory Encounter Nela Shrikanth Nela Santiikanth [facility] Adult Medicine UNK - Ambulatory Encounter Nela Shrikanth Nela Santiikanth [facility] Adult Medicine UNK - Ambulatory Encounter Nela Santiikanth Nela Alexandre Mcgowan [facility] Adult Medicine UNK - Ambulatory Encounter Nela Shrikanth Nela Shrikanth [facility] Adult Medicine UNK - Ambulatory En[facility] - Ambulatory Encounter Nela Shrikanth Nela Shrikanth [facility] Adult Medicine UNK - Ambulatory Encounter Nela Mcgowan [facility] Adult Medicine ArthralgiaChronic back pain - Ambulatory Encounter Edgard Martin [facility] Vision UNK - Ambulatory Encounter Edgard Martin [facility] Vision UNK - Ambulatory Encounter Edgard Song Martin [facility] Vision SPECIAL SCREENING EXAMINATION OTH SPEC VIRAL DZ - Ambulatory Encounter Chrissjesus Martin [facility] Vision UNK - Ambulatory Encounter Chrissjesus Martin [facility] Vision UNK - Ambulatory Encounter Chrissjesus Martin [facility] Vision UNK - Ambulatory Encounter Chrissjesus Barajas [facility] Vision Encounter for exam of eyes and vision- abnormal findings - Ambulatory Encounter Betzaida Dunlap [facility] UNK - Ambulatory Encounter Martha Stallworth [facility] Public Health Services UNK - Ambulatory Encounter Nela Schroeder [facility] Adult Medicine UNK - Ambulatory Encounter Nela Jones [facility] UNK - Ambulatory Encounter Marcelino Ghosh [facility] Behavioral Health UNK - Ambulatory Encounter Nela Lanza [facility]herence, [facility] Adult Medicine UNK - Ambulatory Encounter Nela Schroeder [facility] Adult Medicine UNK - Ambulatory Encounter Nela Pineda [facility] Adult Medicine UNK - Ambulatory Encounter Nela Lanza [facility], [facility] Adult Medicine UNK - Ambulatory Encounter Marcelino Leoz Callizo LM Behavioral Health UNK - Ambulatory Encounter Marcelino Leoz Callizo Thida Santos [facility] Behavioral Health UNK - Ambulatory Encounter Nelairina Hancockikanth [facility] Adult Medicine UNK - Ambulatory Encounter Nelairina Blackh Nela Hancockikanth [facility] Adult Medicine UNK - Ambulatory Encounter Nelairina Walker [facility] Adult Medicine Abscess, axilla, right - Ambulatory Encounter Sandra Lanza [facility], [facility] Adult Medicine UNK - Ambulatory Encounter Dorothy Blackh Trinidad [facility] Contact Center UNK - Ambulatory Encounter Isi Bliss [facility] Contact Center UNK - Ambulatory Encounter Buck Arringtons Isi Cordovamo Leoz Callizo Apurva Isbell [facility] Contact Center UNK - Ambulatory Encounter Nelairina Hancockikabethanyh [facility] Adult Medicine UNK - Ambulatory Encounter Nela Wayneh Nela Hancockikanth [facility] Adult Medicine UNK - Ambulatory Encounter Nela Alexandre Hancockikanth [facility] Adult Medicine UNK - Ambulatory Encounter Nelairina Pineda [facility] Adult Medicine Screening for hypercholesterolemiaImmunization updateFlu shotHx [...] Medicine UNK - Ambulatory Encounter Cliff Arnold [facility] Adult Medicine UNK - Ambulatory Encounter Nelairina Blackh [facility] Adult Medicine UNK - Ambulatory Encounter Nelairina Blackh [facility] Adult Medicine UNK - Ambulatory Encounter Dorothy Alberts [facility] Contact Center UNK - Ambulatory Encounter Nelairina Canasnth [facility] Adult Medicine UNK - Ambulatory Encounter Martha Stallworth [facility] Public Health Services UNK - Ambulatory Encounter Nela Wayneh Nela Santiikanth [facility] Adult Medicine UNK - Ambulatory Encounter Nela Missaelnth Nela Shrcaleb Stallworth [facility] Adult Medicine HIV infectionHepatitis A immunityHepatitis B immunity - Ambulatory Encounter Cliff Napier [facility] UNK - Ambulatory Encounter Mare Watersado [facility] Adult Medicine UNK - Ambulatory Encounter Jeromy Napier [facility] Adult Medicine UNK - Ambulatory Encounter Cliff Recinos [facility] Adult Medicine UNK - Ambulatory Encounter Rinal Recinos [facility] Adult Medicine UNK - Ambulatory Encounter Rinshara Recinos [facility] Adult Medicine UNK - Ambulatory Encounter Jazlyn Nash [facility] Adult Medicine UNK - Ambulatory Encounter Rinal Recinos [facility] Adult Medicine UNK - Ambulatory Encounter Rinal Recinos [facility] Adult Medicine UNK - Ambulatory Encounter Rinal Recinos [facility] Adult Medicine UNK - Ambulatory Encounter Sandra Monge LM Adult Medicine UNK - Ambulatory Encounter Sandra Monge [facility] Adult Medicine Osteopenia - Ambulatory Encounter Cliff Jackson [facility] Adult Medicine UNK - Ambulatory Encounter Rinal Jorje [facility] Adult Medicine UNK - Ambulatory Encounter Rinal Recinos Cliff Jackson [facility] Adult Medicine UNK - Ambulatory Encounter Cliff Jackson [facility] Adult Medicine UNK - Ambulatory Encounter Cliff Jackson [facility] Adult Medicine UNK - Ambulatory Encounter Sandra Monge [facility] Jeromy Recinos [facility] Adult Medicine UNK - Ambulatory Encounter Sandra Monge [facility] Meghna Arnold [facility] Adult Medicine UNK - Ambulatory Encounter Fax Status [facility] UNK - Ambulatory Encounter Fax Status [facility] UNK - Ambulatory Encounter Fax Status [facility] Services UNK - Ambulatory [facility] - [facility] Encounter Mare Jamison Rinal Jorje Murillo [facility] Adult Medicine UNK - Ambulatory Encounter Rinal Recinos [facility] Mare Carbajal [facility] Adult Medicine UNK - Ambulatory Encounter Rinal Recinos [facility] Adult Medicine UNK - Ambulatory Encounter Meghna Nash [facility] Adult Medicine UNK - Ambulatory Encounter [facility] - [facility]ulatory Encounter [facility] - Ambulatory Encounter Sandra Monge [facility] Adult Medicine UNK - Ambulatory Encounter Sandra Nash [facility] Adult Medicine UNK - Ambulatory Encounter Lashaun Monge [facility] UNK - Ambulatory Encounter Sandra Monge [facility] Adult Medicine UNK - Ambulatory Encounter Rinal Recinos [facility] Adult Medicine UNK - Ambulatory Encounter Rinal Recinos Cliff Jackson [facility] Adult Medicine UNK - Ambulatory Encounter Sheebarachell Manuel [facility] Adult Medicine UNK - Ambulatory Encounter Meghna Charity [facility] Adult Medicine UNK - Ambulatory Encounter Bethanyjaswant Manuel [facility] Adult Medicine UNK - Ambulatory Encounter Fax Status [facility] Services UNK - Ambulatory Encounter Fax Status [facility] UNK - Ambulatory Encounter Sandra Monge [employer] Adult Medicine UNK - Ambulatory Encounter Sandra Monge [facility] Adult Medicine UNK - Ambulatory Encounter Sandra Quiles [facility] Adult Medicine Increased transaminase level - Ambulatory Encounter Sandra Monge [facility] Adult Medicine UNK - Ambulatory Encounter Sandra Mcgowan [facility] Adult Medicine UNK - Ambulatory Encounter Sandra Monge [facility] Adult Medicine UNK - Ambulatory Encounter Sandra Monge [facility] Adult Medicine UNK - Ambulatory Encounter Sandra Martinez [facility] Adult Medicine Hx Bronchitis acute with bronchospasmHyponatremiaHyperkalemiaHypercalcemia - Ambulatory Encounter Sandra Lanza [facility], [facility] Adult Medicine UNK - Ambulatory Encounter Sandra Lanza [facility], [facility] Adult Medicine UNK - Ambulatory Encounter Cliff Jackson [facility] Adult Medicine UNK - Ambulatory Encounter Sandra Monge [facility] Adult Medicine UNK - Ambulatory Encounter Sandra Monge [facility] Cliff Jackson [facility] Adult Medicine UNK - Ambulatory Encounter Sandra Lanza [facility], [facility] Adult Medicine UNK - Ambulatory Encounter Sandra Lanza [facility], [facility] Adult Medicine UNK - Ambulatory Encounter Boni Cristina [facility] Public Health Services UNK - Ambulatory Encounter Jazmin Bullard [facility] Vision UNK - Ambulatory Encounter Jazmin Bullard [facility] Vision UNK - Ambulatory Encounter Sandra Monge [employer]Log[facility] Adult Medicine UNK - Ambulatory Encounter Sandra Monge [facility]Logic [facility] Adult Medicine UNK - Ambulatory Encounter Sandra Monge [facility] Adult Medicine UNK - Ambulatory Encounter Sandra Martinez [facility] Adult Medicine Onychomycosis, toenailsImmunization update - Ambulatory Encounter Jazminkaylen Bullard [facility] Vision UNK - Ambulatory Encounter Edgard Martin [facility] Vision UNK - Ambulatory Encounter Edgard Martin [facility] Vision UNK - Ambulatory Encounter Edgard Hoffmann [facility] Vision SPECIAL SCREENING EXAMINATION OTH SPEC VIRAL DZ - Ambulatory Encounter Chriss Martin [facility] Vision UNK - Ambulatory Encounter Chriss Martin [facility] Vision UNK - Ambulatory Encounter Chriss Martin [facility] Vision UNK - Ambulatory Encounter Chrissjesus Bullard [facility] Vision Myopia - OURegular astigmatism, bilateralPresbyopia - OU - Ambulatory Encounter Sandra GoldsteinLogkendrick [facility] Adult Medicine UNK - Ambulatory Encounter Sandra Vargas [facility] Adult Medicine UNK - Ambulatory Encounter Sandra Vargas [facility] Adult Medicine UNK - Ambulatory Encounter Sandra Yancey MedAdherence [facility] Adult Medicine UNK - Ambulatory Encounter Sandra Lanza [facility]herence, [facility] Adult Medicine UNK - Ambulatory Encounter Sandra Lanza [facility]herence, [facility] Adult Medicine UNK - Ambulatory Encounter Sandra Lomashmisela [facility], [facility] Adult Medicine UNK - Ambulatory Encounter Sandra Lanza [facility], [facility] Adult Medicine UNK - Ambulatory Encounter Sandra Lanza [facility], [facility] Adult Medicine UNK - Ambulatory Encounter Sandra Lomashmisela [facility], [facility] Adult Medicine UNK - Ambulatory Encounter Khloe Mckeon [facility] UNK - Ambulatory Encounter Khloe Lee [facility] UNK - Ambulatory Encounter Amaury Nath [facility] Adult Medicine UNK - Ambulatory Encounter Amaury Nath [facility] Adult Medicine UNK - Ambulatory Encounter Sandra Monge [facility] Adult Medicine UNK - Ambulatory Encounter Sandra Monge [facility] Adult Medicine UNK - Ambulatory Encounter Sandra Hill [facility] Adult Medicine Hx Latent tuberculosis, s/p INH/B6Hx Bronchitis acute with bronchospasm - Ambulatory Encounter Buck Ledesma [facility] Behavioral Health UNK - Ambulatory Encounter Buck Ledesma LinkLogic [facility] Behavioral Health UNK - Ambulatory Encounter Sandra Vargas [facility] Adult Medicine UNK - Ambulatory Encounter Sandra GoldsteinLogkendrick Vargas [facility] Adult Medicine UNK - Ambulatory Encounter Sandra Bush [facility] UNK - Ambulatory Encounter Buck Ledesma [facility] Behavioral Health UNK - Ambulatory Encounter Buck GoldsteinLogkendrick [facility] Behavioral Health UNK - Ambulatory Encounter Buck Solares [facility] Contact Center UNK - Ambulatory Encounter Sandra Castro [facility] UNK - Ambulatory Encounter Sandra Castro [facility] Adult Medicine UNK - Ambulatory Encounter Sandra Monge [facility] Adult Medicine UNK - Ambulatory Encounter Sandra Monge [facility] Adult Medicine UNK - Ambulatory Encounter Sandra Kessler [facility] Adult Medicine UNK - Ambulatory Encounter Sandra Monge LM Adult Medicine UNK - Ambulatory Encounter Sandra Monge [employer]Log[employer] [facility] Adult Medicine UNK - Ambulatory Encounter [facility] UNK - Ambulatory Encounter Khloe Jesus [facility] UNK - Ambulatory Encounter Nancy Jones [facility] Adult Medicine UNK - Ambulatory Encounter Buck Burris [facility] Behavioral Health UNK - Ambulatory Encounter Sandra Monge [facility] Adult Medicine UNK - Ambulatory Encounter Sandra Hill [facility] Adult Medicine Hx Latent tuberculosis, s/p INH/N1Nenmovnxxdlsezjqvmfl - Ambulatory Encounter Sandra Monge [facility]Log[facility] Adult Medicine UNK - Ambulatory Encounter Sandra Boss [facility] Adult Medicine UNK - Ambulatory Encounter Buck Clarke [facility] UNK - Ambulatory Encounter Buck Ledesma [facility] Behavioral Health UNK - Ambulatory Encounter Buck GoldsteinLogic [facility] Behavioral Health UNK - Ambulatory Encounter Sandra GoldsteinLogic [facility] Adult Medicine UNK - Ambulatory Encounter Buck Villeda [facility] UNK - Ambulatory Encounter Marymaritza Callie Angi Burris [facility] Behavioral Health UNK - Ambulatory Encounter Lashaun Mike [facility] UNK - Ambulatory Encounter Sigrid Abramsjulianne [facility] UNK - Ambulatory Encounter Garetteamon Chamberlainkaden [facility] Behavioral Health UNK - Ambulatory Encounter Buck Ledesma Isi Mildredleon [facility] Behavioral Health UNK - Ambulatory Encounter Sandra GlodsteinLogkendrick [facility] Adult Medicine UNK - Ambulatory Encounter Sandra Monge [facility] Adult Medicine UNK - Ambulatory Encounter Sandra Chen [facility] Adult Medicine Flu shot - Ambulatory Encounter Sandra GoldsteinLogic [facility] Adult Medicine UNK - Ambulatory Encounter Sandra Chen [facility] Adult Medicine UNK - Ambulatory Encounter Sandra Monge [facility] Adult Medicine UNK - Ambulatory Encounter Sandra Chen [facility] Adult Medicine BMI < 20 - Ambulatory Encounter Sandra GoldsteinLogkendrick [facility] Adult Medicine UNK - Ambulatory Encounter Sandra Kowalski [facility] UNK - Ambulatory Encounter Sandra Monge [facility] Adult Medicine UNK - Ambulatory Encounter Sandra Chen [facility] Adult Medicine Immunization updateVitamin D deficiency - Ambulatory Encounter Sandra Mariposa Sandra Mariposa [facility] Services UNK - Ambulatory Encounter Jason Gilliam [facility] UNK - Ambulatory Encounter Sandra Hill [facility] Adult Medicine UNK - Ambulatory Encounter [facility] Care Coordination Desktop [facility] Michelle Hill [facility] UNK - Ambulatory Encounter Sandra Monge [facility] Adult Medicine COPDHx Latent tuberculosis, s/p INH/B6 - Ambulatory Encounter Sandra GoldsteinLogkendrick [facility] Adult Medicine UNK - Ambulatory Encounter Maximus Yancey [facility] Cannery Worker UNK - Ambulatory Encounter Maximuskrys Yancey [facility] Cannery Worker UNK - Ambulatory Encounter Jasonyoel Gilliam Idalia Nath [facility] UNK - Ambulatory Encounter Sandar Kowalski [facility] Adult Medicine UNK - Ambulatory Encounter Maximus Yancey [facility] Cannery Worker UNK - Ambulatory Encounter Sandra Mcgowan [facility] Adult Medicine UNK - Ambulatory Encounter Maximus Yancey [facility] Cannery Worker UNK - Ambulatory Encounter Sandra Monge [facility] Adult Medicine UNK - Ambulatory Encounter Jasper Keller [facility] Behavioral Health DEPRESSIVE DISORDER, OTHER SPECIFIEDALCOHOL USE DISORDER, MODERATETOBACCO USE DISORDER, MODERATE - Ambulatory Encounter Sandra Jamison [facility] Adult Medicine - Ambulatory Encounter Sandra Monge [employer] Adult Medicine UNK - Ambulatory Encounter Sandra Day [facility] Adult Medicine Screening for hypercholesterolemia - Ambulatory Encounter Adrian Cristina [facility] Public Health Services UNK - Ambulatory Encounter Sandra Monge LinkLogic [facility] Vision UNK VITAL SIGNS Date Observation Value Provider pulse rate E&M 96 /min Dorothy Pineda " oxygen saturation, oximetry 99 % Dorothy Pineda " blood pressure, diastolic 74 mm[Hg] Dorothy Edwin " blood pressure, systolic 114 mm[Hg] Dorothy Edwin " temperature E&M 98.2 [degF] Dorothy Edwin " weight E&M 135 lbs. Dorothy Pineda " weight in kilograms E&M 61.36 kg Dorothy Pineda " method used to obtain blood pressure automatic Dorothy Pineda " Blood Pressure Position 01 sitting Dorothy Pineda " blood pressure, site #1 right arm Dorothy Pineda " temperature site oral Dorothy Pineda " height E&M 72 [in_i] Dorothy Pineda " height in centimeters E&M 182.88 cm Dorothy Pineda BP diastolic #1 102 mm[Hg] Nela Shrikanth [...] Pineda " temperature E&M 98.4 [degF] Dorothy Edwin " weight E&M 139.38 lbs. Dorothy Pineda " weight in kilograms E&M 63.35 kg Dorothy Pineda " method used to obtain blood pressure automatic Dorothy Pineda " Blood Pressure Position 01 sitting Dorothy Pineda " blood pressure, site #1 left arm Dorothy Edwin " temperature site oral Dorothybarby Pineda " height E&M 72 [in_i] Dorothy [...] " blood pressure, systolic 108 mm[Hg] Cliff aJckson " pulse rate E&M 86 /min Cliff [...] " weight in kilograms E&M 65.97 kg Karianam Mcdermottvez " height E&M 72 [in_i] Kari Crawford [...] " blood pressure, systolic 114 mm[Hg] Angi Ogema " oxygen saturation, oximetry 98 % Angi Ogema " pulse rate E&M 88 /min Angi Juan " temperature E&M 98.9 [degF] Angi Juan " weight E&M 145.13 lbs. Angi Ogema " weight in kilograms E&M 65.97 kg Angi Juan " method used to obtain blood pressure automatic Angi Ogema " Blood Pressure Position 01 sitting Angi Juan " blood pressure, site #1 left arm Angi Juan " temperature site oral Angi Juan " height E&M 72 [in_i] Angi Ogema " height in centimeters E&M 182.88 cm Angi Hessrod oxygen saturation, oximetry 95 % Angi Hessrod " blood pressure, diastolic 88 mm[Hg] Angi Ogema " blood pressure, systolic 129 mm[Hg] Angi Juan " pulse rate E&M 96 /min Angi Ogema " temperature E&M 98.4 [degF] Angi Juan " weight E&M 142 lbs. Angi Ogema " weight in kilograms E&M 64.55 kg Angi Juan " method used to obtain blood pressure automatic Angi Hessrod " Blood Pressure Position 01 sitting Angi Hessrod " blood pressure, site #1 left arm Angi Ogema " temperature site oral Angi Ogema " height E&M 72 [in_i] Angi Hessrod " height in centimeters E&M 182.88 cm Angi Martinez blood pressure, diastolic 62 mm[Hg] Michelleadam Hill " blood pressure, systolic 99 mm[Hg] Michelle Sergio " oxygen saturation, oximetry 96 % Michelle Hill " pulse rate E&M 105 /min Michelleadam Hill " temperature E&M 97.4 [degF] Michelle [...] arm Elizabeth Checo " temperature site tympanic Elizabethnila Kessler " height E&M 72 [in_i] Elizabeth Checo [...] " blood pressure, systolic 104 mm[Hg] Emil Najeramez " pulse rate E&M 89 /min Emil Najeramez " weight E&M 131.25 lbs. Buck Ledesma " weight in kilograms E&M 59.66 kg Buck Ledesma " height E&M 72 [in_i] Emil Coronaz " height in centimeters E&M 182.88 cm [...] Bliss " weight E&M 136 lbs. Isi Bilss " weight in kilograms E&M 61.82 kg [...] used to obtain blood pressure automatic Deepika Cehn " Blood Pressure Position 01 sitting Deepika [...] creatinine, urine, 24 hour 2076 mg/24h [facility] [id number] High " creatinine, random, urine 38.1 mg/dL [...] creatinine, urine, 24 hour 1562 mg/24h [facility] [id number] " creatinine, random, urine 25.4 mg/dL [facility] [...] [facility] 12.0-35.5 High " absolute CD8 1142 LinkLog [id number] High " T-helper cells (CD4) as percent of blood lymphocytes 48.2 % [facility] 30.8-58.5 " T-helper cells (CD4) count 1157 /UL [facility] [phone] rapid plasma reagin antibody, serum Non [facility] " HIV-1RNA, serum, by PCR, quantitative <20 copies/mL LinkLog " LDL cholesterol, serum 24 mg/dL LinkLogic [...] >3.0 " B-12, serum 471 pg/mL LinkLogic [id number] 0946/04/21 human leukocyte antigen B57 negative Sandra Monge [...] Vaccine Dose Lot Number Status riri klein [facility] [id number] sanofi pasteur 0.5 mL [id number] completed HISTORY OF MEDICATION USE Medication Instructions Dates Provider Comments MELOXICAM 7.5 MG ORAL TABLET Take 1 tablet orally once daily as needed Nela Santiikanth DRYSOL 20 % EXTERNAL SOLUTION Apply once daily Nela Shrikanth HYPERCARE 15 % EXTERNAL SOLUTION Apply once daily as needed Nela Santiikanth FLUOXETINE 20 MG CAPSULE TAKE ONE CAPSULE BY MOUTH DAILY Marcelino Jefferson Callizo PIFELTRO 100 MG ORAL TABLET Take 1 tablet orally once daily Nela Santiikanth ONDANSETRON 4 MG ORAL TABLET DISINTEGRATING 1 By Mouth every 8 hours as needed for nausea/vomiting. Sandra Monge PREZCOBIX 800-150 MG ORAL TABLET 1 tab by mouth daily with food - Nela Blackh FENOFIBRATE 48 MG ORAL TABLET tk 1 [...] 4 TO 6 HOURS NEEDED Estrellita Lanza [facility], ok to change per Dr. Monge, due [...] 1 By Mouth Every Day - Sandra Amriposa PREZISTA 800 MG ORAL TABLET 1 by [...] busy though". Not homeless. Born in [facility]. City: [place]. State: [place]. Lives w/ mom and step-father in [place], 2 cats. Unemployed since November 2016. Highest education level: bachelor's degree. Not in workforce. Not on disability. 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 Bachelor's degree in [place] at [employer]. Sex at : Male. Sexual orientation: Palacio. Gender identity: Male. Gender of partner(s): Male. Age of first sexual intercourse: 17. Sexually Active: No. Not sexually active. Dorothy Pineda " social history reviewed E&M reviewed today Dorothy Pineda " passive cigarette smoke exposure No Dorothy Pineda " if the patient is using/has used a vaping item, Current, Former, Never Used, Not asked No Dorothy Pineda " tobacco use (cigarettes, cigar, chew, pipe) Currently Dorothy Pineda " smoking status current every day smoker Dorothy Pineda " Exercise Program Referral T Dorothy Pineda " Weight Management Counseling Provided T Dorothy Pineda " Nutrition intervention Mendez Pineda drug use, illicit Previously Dorothy Pineda " [...] busy though". Not homeless. Born in [facility]. City: [place]. State: [place]. Lives w/ mom and step-father in [address] Unemployed since November 2016. Highest education level: bachelor's degree. Not in workforce. Not on disability. 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 Bachelor's degree in [place] at [employer]. Sex at : Male. Sexual orientation: Palacio. Gender identity: Male. Gender of partner(s): Male. Age of first sexual intercourse: 17. Sexually Active: No. Not sexually active. Dorothy Pineda " social history reviewed E&M reviewed today Dorothy Pineda " assessment of health literacy ([facility] 2014 Standards, 3C10) Adequate Dorothy Pineda " passive cigarette smoke exposure No Dorothy Pineda " smoking status current every day smoker Dorothy Pineda sexual orientation Palacio Jess Karl time of call 11/15/2019 1:21 PM Martha Stallworth drug use, illicit Previously Marcelino Bruceo " [...] though". Not homeless. Born in [place] City: [place]. State: [place]. Lives w/ mom and step-father in [place], 2 cats. Unemployed since November 2016. Highest education level: bachelor's degree. Not in workforce. Not on disability. 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 Bachelor's degree in [place] at [employer]. Sex at [...] though". Not homeless. Born in [place] City: [place]. State: [place]. Lives w/ mom and step-father in [place], 2 cats. Unemployed since November 2016. Highest education level: bachelor's degree. Not in workforce. Not on disability. 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 Bachelor's degree in [place] at [employer]. Sex at : Male. Sexual orientation: Palacio. Gender identity: Male. Gender of partner(s): Male. Age of first sexual intercourse: 17. Sexually Active: No. Not sexually active. Dorothy Pineda " social history reviewed E&M reviewed today Dorothy Pineda " assessment of health literacy ([facility] 2014 Standards, 3C10) Adequate Dorothy Pineda " passive cigarette smoke exposure No Dorothy Pineda " smoking status current every day smoker Dorothy Pineda drug use, illicit Previously Marcelino Bruceo " alcohol use Currently Marcelino Li Bruceo " smoking status current every day smoker Marcelino Farahizo " social history E&M Single. Single. Parents when pt was age 16, mother and father both remarried. Relationship with father "I love him but don't like him... we talk on phone 1x a week". Relationship with mother and step-father "perfect and very good". One younger brother, "get along well, he is very busy though". Not homeless. Born in [facility]. City: [place]. State: [place]. Lives w/ mom and step-father in [place], 2 cats. Unemployed since November 2016. Highest education level: bachelor's degree. Not in workforce. Not on disability. 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 Bachelor's degree in [place] at [employer]. Sex at : Male. Sexual orientation: Palacio. Gender identity: Male. Gender of partner(s): Male. Age of first sexual intercourse: 17. Sexually Active: No. Not sexually active. Marcelino Bruceo " social history reviewed E&M reviewed today Marcelino Bruceo " sexual orientation Palacio Dylon E Aaron " is there any chance that you could be ? No Dylon E Aaron " assessment of health literacy ([facility] 2014 Standards, 3C10) Adequate Dylon E Aaron [...] busy though". Not homeless. Born in [facility]. City: [place]. State: [place]. Lives w/ mom and step-father in [place] [address] cats. Unemployed since November 2016. Highest education level: bachelor's degree. Not in workforce. Not on disability. 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 Bachelor's degree in [place] at [employer]. Sex at [...] busy though". Not homeless. Born in [facility]. City: [place]. State: [place]. Lives w/ mom and step-father in [place] [address] cats. Unemployed since November 2016. Highest education level: bachelor's degree. Not in workforce. Not on disability. 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 Bachelor's degree in [place] at [employer]. Sex at : Male. Sexual orientation: Palacio. Gender identity: Male. Gender of partner(s): Male. Age of first sexual intercourse: 17. Sexually Active: No. Not sexually active. Dorothy Pineda " social history reviewed E&M reviewed today Dorothy Pineda " assessment of health literacy ([facility] 2014 Standards, 3C10) Adequate Dorothy Pineda " passive cigarette smoke exposure No Dorothy Pineda " smoking status current every day smoker Dorothy Pineda drug use, illicit Previously Sheebarachell Manuel " alcohol use Currently Cliff Jackson " [...] busy though". Not homeless. Born in [facility]. City: [place]. State: [place]. Lives w/ mom and step-father in [place], 2 cats. Unemployed since November 2016. Highest education level: bachelor's degree. Not in workforce. Not on disability. 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 Bachelor's degree in [place] at [employer]. Sex at : Male. Sexual orientation: Palacio. Gender identity: Male. Gender of partner(s): Male. Age of first sexual intercourse: 17. Sexually Active: No. Not sexually active. Cliff Jackson " social history reviewed E&M reviewed today Cliff Jackson " is there any chance that you could be ? No Cliff Jackson " assessment of health literacy ([facility] 2014 Standards, 3C10) Adequate [...] Kari Crawford " Weight Management Counseling Provided Mendez Crawford " Nutrition intervention Mendez Crawford time [...] busy though". Not homeless. Born in [facility]. City: [place]. State: [place]. Lives w/ mom and step-father in [place], cats. Unemployed since November 2016. Highest education level: bachelor's degree. Not in workforce. Not on disability. 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 Bachelor's degree in [place] at [employer]. Sex at : Male. Sexual orientation: Palacio. Gender identity: Male. Gender of partner(s): Male. Age of first sexual intercourse: 17. Sexually Active: No. Not sexually active. Cliff Jackson " social history reviewed E&M reviewed today Cliff Jackson " is there any chance that you could be ? No Cliff Jackson " assessment of health literacy ([facility] 2014 Standards, 3C10) Adequate Cliff Jackson " [...] Angi Juan " alcohol use Currently Angi Ogema " social history E&M Single. Single. Parents when pt was age 16, mother and father both remarried. Relationship with father "I love him but don't like him... we talk on phone 1x a week". Relationship with mother and step-father "perfect and very good". One younger brother, "get along well, he is very busy though". Not homeless. Born in [place] City: [place]. State: [place]. Lives w/ mom and step-father in [place], 2 cats. Unemployed since November 2016. Highest education level: bachelor's degree. Not in workforce. Not on disability. 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 Bachelor's degree in [place] at [employer]. Sex at [...] " assessment of health literacy ([facility] 2014 Standards, 3C10) Adequate [...] busy though". Not homeless. Born in [facility]. City: [place]. State: [place]. Lives w/ mom and step-father in [place], 2 cats. Unemployed since November 2016. Highest education level: bachelor's degree. Not in workforce. Not on disability. 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 Bachelor's degree in [place] at [employer]. Sex at [...] " assessment of health literacy ([facility] 2014 Standards, 3C10) Adequate Angi Ogema " passive cigarette smoke exposure Yes Anginava Martinez " smoking status current every day [...] busy though". Not homeless. Born in [facility]. City: [place]. State: [place]. Lives w/ mom and step-father in [place], cats. Unemployed since November 2016. Highest education level: bachelor's degree. Not in workforce. Not on disability. 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 Bachelor's degree in [place] at [employer]. Sex at [...] " assessment of health literacy ([facility] 2014 Standards, 3C10) Adequate [...] " assessment of health literacy ([facility] 2014 Standards, 3C10) Adequate [...] Michelleadam Hill " assessment of health literacy ([facility] 2014 Standards, 3C10) Adequate [...] busy though". Not homeless. Born in [facility]. City: [place]. State: [place]. Lives w/ mom and step-father in [place], 2 cats. Unemployed since November 2016. Highest education level: bachelor's degree. Not in workforce. Not on disability. 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 Bachelor's degree in [place] at [employer]. Sex at : Male. Sexual orientation: Palacio. Gender identity: Male. Gender of partner(s): Male. Age of first sexual intercourse: 17. Sexually Active: No. Not sexually active. Deepika Valentinoierrez " social history reviewed E&M reviewed today Deepikabeatris Chen " sexual orientation Palacio Deepikabeatris Chen " passive cigarette smoke exposure No Deepika Gustavo " smoking status current every day smoker Deepika Valentinoierrez " assessment of health literacy ([facility] 2014 Standards, 3C10) Adequate [...] busy though". Not homeless. Born in [facility]. City: [place]. State: [place]. Lives w/ mom and step-father in [place], [facility]. Unemployed since November 2016. Highest education level: bachelor's degree. Not in workforce. Not on disability. 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 Bachelor's degree in [place] at [employer]. Sex at [...] cigarette smoke exposure No Deepikabeatris Chen " smoking, advice to quit Yes Deepika Chen " smoking status current every day smoker Deepika Gustavo " assessment of health literacy ([facility] 2014 Standards, 3C10) Adequate Deepika Chen Exercise Program Referral T Sandra Monge " Weight Management Counseling Provided T Sandra Monge " Nutrition intervention Mendez Monge " smoking, advice to quit Yes Sandra Monge " drug use, illicit Previously Deepika Gustavo " alcohol use Currently Deepikabaetris Chen " social history E&M Single. Single. Parents when pt was age 16, mother and father both remarried. Relationship with father "I love him but don't like him... we talk on phone 1x a week". Relationship with mother and step-father "perfect and very good". One younger brother, "get along well, he is very busy though". Not homeless. Born in [facility]. City: [place]. State: [place]. Lives w/ mom and step-father in [place], cats. Unemployed since November 2016. Highest education level: bachelor's degree. Not in workforce. Not on disability. 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 Bachelor's degree in [place] at [employer]. Sex at [...] " assessment of health literacy ([facility] 2014 Standards, 3C10) Adequate Deepika Chen social history reviewed E&M reviewed today Jasper Garduno " social history E&M Single. Single. Parents when pt was age 16, mother and father both remarried. Relationship with father "I love him but don't like him... we talk on phone 1x a week". Relationship with mother and step-father "perfect and very good". One younger brother, "get along well, he is very busy though". Not homeless. Born in [facility]. City: [place]. State: [place]. Lives w/ mom and step-father in [place], 2 cats. Unemployed since November 2016. Highest education level: bachelor's degree. Not in workforce. Not on disability. 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 Bachelor's degree in [place] at [employer]. Sex at : Male. Sexual orientation: Palacio. Gender identity: Male. Gender of partner(s): Male. Age of first sexual intercourse: 17. Sexually Active: No. Not sexually active. Jasper Garduno" drug use, illicit Previously Jasper Garduno" alcohol use, number maximum drinks per occasion 4-5 beers Jasper Garduno" alcohol use, frequency daily Jasper Garduno " alcohol use Currently Jasper Garduno " current cigarette packs per day 1-1.5 Jasper Garduno" smoking status current every day smoker Jasper Garduno" sexual orientation Palacio Jasper Garduno " sex at Male Jasper Garduno" Occupation #1 Unemployed Jasper Garduno " patient considered to be homeless No Jasper Garduno" social history - sexual practice Not sexually active. Jasper Garduno " family support Single. Parents when pt was age 16, mother and father both remarried. Relationship with father "I love him but don't like him... we talk on phone 1x a week". Relationship with mother and step-father "perfect and very good". One younger brother, "get along well, he is very busy though". Jasper Garduno" home/family situation, assessment Lives w/ mom and step-father in [place], 2 cats. Jasper Garduno " social history reviewed E&M reviewed today Sandra Monge " social history E&M Single. Spouse/Partner/Significant Other: n/a. Family is aware and supportive. Not homeless. Born in [facility]. City: [place]. State: [place]. [place] [facility] [place] stepdad in [place] in [facility]. Not employed. Highest education level: bachelor's degree. Not working at this time. Sex at : Male. Sexual orientation: Palacio. Gender identity: Male. Gender of partner(s): Male. Age of first sexual intercourse: 17 . Sexually Active: No. Not sexually active since he was diagnosed with HIV. Sandra Monge" social history - sexual practice Not sexually active since he was diagnosed with HIV. Sandra Mariposa " home/family situation, assessment [place] [facility] [place] stepdad in [place] in [facility]. Sandra Monge " family support Family is aware and supportive. Sandra Monge " smoking, advice to quit Yes Sandra Monge " assessment of health literacy ([facility] 2014 Standards, 3C10) Adequate [...] Available MENTAL STATUS Date Observation Value Provider Generalized Anxiety Disorder Questionnaire - Question 2 0 Dorothy Pineda " Generalized Anxiety Disorder Questionnaire - Question 1 0 Dorothy Pineda assessment of judgment and insight E&M intact Nela Black " assessment of mood and affect E&M good eye contact, normal affect Nela Shrikant " Generalized Anxiety Disorder Questionnaire [...] content (mental status exam) (E&M) lucid Marcelino Breanneoz Teoo " mental status assessment, process able [...] motor activity normal gait, normal posture Marcelino Farahjudah " behavior (mental status exam) appropriate, candid, cooperative, good eye contact, polite, responsive Marcelino Raymundoolga Mark " mental appearance (mental status exam) adequate [...] looks like stated age, neat Maryan Bulmaroiuddin assessment of judgment and insight E&M intact [...] oriented to situation, oriented to reality Maryan Bulmaroiuddin " hallucinations none Zishan Samiuddin " thought [...] motor activity normal gait, normal posture Garettshan Samiuddin " behavior (mental status exam) appropriate, candid, cooperative, good eye contact, polite, responsive Zishan Samiuddin " mental appearance (mental status exam) adequate hygiene, appropriate dress, looks like stated age, satya Garetteamon Chamberlainiuddin mental status assessment, judgment fair Zishan [...] dress, looks like stated age, satya Garetteamon Chamberlainiuddin mood (mental status exam) pleasant Garettshan Samiuddin [...] rate, normal tone, normal volume, spontaneous, loud eamon Ledesma " mental status assessment, motor activity normal gait, normal posture Garettmaritza Keatingzenon " behavior (mental status exam) appropriate, candid, cooperative, good eye contact, polite, responsive [facility] " mental appearance (mental status exam) adequate hygiene, appropriate dress, looks like stated age, neat [facility] assessment of judgment and insight E&M [...] 1 0 Deepika Gustavo delusion No Jasper Garduno " mental status assessment, judgment fair Jasper Garduno " insight (mental status exam) fair Jasper Garduno " Mental Status Exam: intelligence adequate fund of information, intact memory processes, oriented to person, oriented to place, oriented to time, oriented to situation, oriented to reality Jasper Garduno " hallucinations none Jasper Garduno " thought content (mental status exam) (E&M) lucid Jasper Garduno " mental status assessment, process able to abstract, logical, circumstantial Jasper Garduno " mental status assessment, sensorium alert, attentive, clear Jasper Garduno " affect (mental status exam) congruent, normal intensity, normal range Jasper Garduno " mood (mental status exam) happy Jasper Garduno " mental status assessment, speech activity normal flow, normal pace, normal pressure, normal rate, normal tone, normal volume, spontaneous, loud Jasper Garduno " mental status assessment, motor activity normal gait, normal posture Jasper Garduno " behavior (mental status exam) appropriate, candid, cooperative, good eye contact, responsive Jasper Garduno " mental appearance (mental status exam) adequate hygiene, appropriate dress, looks like stated age, neat Jasper Garduno Generalized Anxiety Disorder Questionnaire - Question 2 0 Michelle Hill " Generalized Anxiety Disorder Questionnaire - Question 1 0 Michelleadam Hill MEDICAL EQUIPMENT No Information Available FAMILY HISTORY No Information Available INSURANCE PROVIDERS Payer name Policy type / Coverage type Covered alliance party ID *Jasper White 0-100% Other [id number] Sliding Fee - Cat 1 [employer] insurance company [id number] *Jasper White 0-100% Other Sliding Fee - Cat 1 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 *Jasper White 0-100% Other [id number] *Jasper White 0-100% Other Sliding Fee - Cat 1 [employer] insurance company [id number] *Jasper White 0-100% Other [id number] ADVANCE DIRECTIVES Name Date DISCUSSED - NO [...] Lumboacral - InHouse Est Patient Detailed - 52783 Est Patient Comprehensive Opth - 33977 Est Patient Intermediate Opth - 82950 Est Patient Exp Problem - 61750 Est Patient Detailed - 93126 Est Patient Detailed - 48573 Est Patient Exp Problem - 84113 Est Patient Exp Problem - 59402 Ofc Vst, Est Level III Est Patient Detailed - 58668 First Vx - Ix admin via ID IM or jet injects without counseling by physician Menactra Intramuscular Injectable Vision Vaccines Ordered - Print Consent/Declination Forms Ofc Vst, Est Level IV Xray - Chest - 2 Views - InHouse Handling of specimen for transfer Venipuncture Est Patient Detailed - 36085 Dispensing Visit (UNLIVSTED OPHTHALMOLOGICAL SERVICE/PROCEDURE) INFLUENZA VACCINE QUADRIVALENT 3 YRS PLUS IM Pneumovax Vaccine PPSV23 Admin of Vaccine - Injection - Each Add'l Admin of Vaccine - Injection - 1 Est Patient Detailed - 50169 Progressive lens, per lens Frames, purchases Est Patient Comprehensive Opth - 41558 New Patient Intermediate Opth - 81868 Est Patient Detailed - 02183 Est Patient Detailed - 59796 Est Patient Detailed - 69077 Est Patient Detailed - 76455 Est Patient Exp Problem - 63089 Est Patient Detailed - 29689 Diagnostic evaluation with medical - 21744 INFLUENZA VACCINE QUADRIVALENT 3 YRS PLUS IM Admin of Vaccine - Injection - 1 Est Patient Detailed - 22449 Est Patient Detailed - 02383 Prevnar (PCV13) IM TDAP Admin of Vaccine - Injection - Each Add'l Admin of Vaccine - Injection - 1 Est Patient Well Exam (40 - 64 Yrs) - 54402 Primary Care Service [facility] - Psychiatry Diagnostic evaluation (no medical) - 51272 IB Assessment - Jewelry Cutter Primary Care Service [facility] Xray - Chest - PA & Lat - InHouse Primary Care Service [facility] Handling of specimen for transfer Venipuncture Integrated Behavioral Health Assessment (IBH) New Patient Well Exam (40 - 64 Yrs) - 29841 Handling of specimen for transfer Venipuncture HISTORY OF PROCEDURES Procedure Date Procedure Name Provider Procedure Notes Status Est Patient Comprehensive Opt - 20777 Edgard Martin completed Est Patient Intermediate Opt - 30880 Chriss Martin completed First Vx - Ix [...] 60.00) completed Est Patient Comprehensive Opt - 30638 Edgard Song Mario completed New Patient Intermediate Opt - 33440 Chriss Martin completed Diagnostic evaluation with medical - 99945 Buck Ledesma completed Primary Care Service [facility] Maximus Yancey Time spent with patient: 30 completed Diagnostic evaluation (no medical) - 98318 Jasper Garduno completed IB Assessment - Jewelry Cutter Jasper Garduno completed Primary Care Service Linkage Maximus Yancey Time spent with patient: 30 completed Primary Care Service Linkage Maximus Yancey Time spent with patient: 30 completed Venipuncture Sandra Monge completed Venipuncture Sandra Monge completed GOALS No Information Available HEALTH CONCERNS No Information Available
--- OUTSIDE RECORDS SUMMARY | 2020-02-10 14:14 | XMS REPORT ---
Author Author Admin, [place] Organization Unknown Address Unknown Phone Unavailable PROBLEMS [...] Shrikanth Hyperkalemia completed - Nela Shrikanth Hyponatremia active Nela Shrikanth Immunization update active Sandra Monge [...] Sandra Monge Immunization update completed - Nela Wayneh Hx Latent tuberculosis, s/p INH/B6 active Sandra Monge Stop date 03/16/18 COPD active Sandra Monge seen on CXR TOBACCO USE DISORDER, MODERATE active Jasper Garduno ALCOHOL USE DISORDER, MODERATE active Jasper Garduno DEPRESSIVE DISORDER, OTHER SPECIFIED active Jasper Garduno Screening for hypercholesterolemia completed - Nelairina Canasnth ENCOUNTERS Date Type Provider Location Encounter Diagnosis - Ambulatory Encounter Nela Santiikanth Nela Santiikanth LM Adult Medicine UNK - Ambulatory Encounter Nela Santiikanth Nela Blackh Dorothy Pineda [facility] Adult Medicine Hyponatremia - Ambulatory Encounter Dorothy Youssef Roly [facility] Contact Center UNK - Ambulatory Encounter Marcelino Flores [facility] Behavioral Health UNK - Ambulatory Encounter Nela Santiikanth Nela Santiikanth LM Adult Medicine UNK - Ambulatory Encounter Nela Santiikanth Nela Santiikanth [facility] Adult Medicine UNK - Ambulatory Encounter Nela Santiikanth Nela Santiikanth [facility] Adult Medicine UNK - Ambulatory Encounter Nela Santiikanth Nela Santiikantkirill Mcgowan LM Adult Medicine UNK - Ambulatory Encounter Nela Shrikanth Nela Shrikanth [facility] Adult Medicine UNK - Ambulatory Encounter Nela Shrikanth [facility] UN[facility] - Ambulatory Encounter [facility]ela Shrikanth [facility] - Ambulatory Encounter Nela Shrikanth Nela Shrikanth [facility] Adult Medicine UNK - Ambulatory Encounter Nela Mcgowan [facility] Adult Medicine ArthralgiaChronic back pain - Ambulatory Encounter Edgard Martin [facility] Vision UNK - Ambulatory Encounter Edgard Martin [facility] Vision UNK - Ambulatory Encounter Edgard Song Martin [facility] Vision SPECIAL SCREENING EXAMINATION OTH SPEC VIRAL DZ - Ambulatory Encounter Chriss Martin [facility] Vision UNK - Ambulatory Encounter Chrissjesus Martin [facility] Vision UNK - Ambulatory Encounter Chriss Martin [facility] Vision UNK - Ambulatory Encounter Chrissjesus Barajas [facility] Vision Encounter for exam of eyes and vision- abnormal findings - Ambulatory Encounter Betzaida Dunlap [facility] UNK - Ambulatory Encounter Martha Stallworth [facility] Public Health Services UNK - Ambulatory Encounter Nela Schroeder [facility] Adult Medicine UNK - Ambulatory Encounter Nela Jones [facility] UNK - Ambulatory Encounter Marcelino Ghosh [facility] Behavioral Health UNK - Ambulatory Encounter Nelairina Lanza [facility], [facility] Adult Medicine UNK - Ambulatory Encounter Nela Schroeder [facility] Adult Medicine UNK - Ambulatory Encounter Nela Pineda [facility] UNK - Ambulatory Encounter Nela Lanza [facility], [facility] Adult [facility] UNK - Ambulatory Encounter Marcelino Leoz Callizo LM Behavioral Health UNK - Ambulatory Encounter Marcelino Leoz Callizo Thida Santos LM Behavioral Health UNK - Ambulatory Encounter Nelairina Canasnth [facility] Adult Medicine UNK - Ambulatory Encounter Nelairina Canasnth [facility] Adult Medicine UNK - Ambulatory Encounter Nela Suárezuna [facility] Adult Medicine Abscess, axilla, right - Ambulatory Encounter Sandra Lanza [facility], [facility] Adult Medicine UNK - Ambulatory Encounter Dorothy Alberts [facility] Contact Center UNK - Ambulatory Encounter Iis Bliss [facility] Contact [facility] UNK - Ambulatory Encounter Buck Arringtons Isi Ramsaylermo Leoz Callizo Apurva Isbell [facility] Contact Center UNK - Ambulatory Encounter Nela Hancockikanth [facility] Adult Medicine UNK - Ambulatory Encounter Nela Wayneh Nela Hancockikanth [facility] Adult Medicine UNK - Ambulatory Encounter Nelairina Canasnth [facility] Adult Medicine UNK - Ambulatory Encounter Nela Pineda [facility] Adult [facility] Screening for hypercholesterolemiaImmunization updateFlu shotHx Bronchitis acute with bronchospasmHyponatremiaHyperkalemiaHypercalcemia - Ambulatory Encounter Rinshara Recinos [facility] Adult [facility] UNK - Ambulatory Encounter Rinshara Jorje Jackson [facility] Adult Medicine UNK - Ambulatory Encounter Jeromy Recinos [facility] Adult [facility] UNK - Ambulatory Encounter Mare Carbajal [facility] Adult Medicine UNK - Ambulatory Encounter Dorothy Nash [facility] Contact Center UNK - Ambulatory Encounter Destinishara Recinos [facility] Adult Medicine UNK - Ambulatory Encounter Cliff Arnold [facility] Adult Medicine UNK - Ambulatory Encounter Nela Schroeder [facility] Adult Medicine UNK - Ambulatory Encounter Nela Schroeder [facility] Adult Medicine UNK - Ambulatory Encounter Dorothy Alberts [facility] Contact Center UNK - Ambulatory Encounter Nela Schroeder [facility] Adult Medicine UNK - Ambulatory Encounter Martha Stallworth [facility] Public Health Services UNK - Ambulatory Encounter Nela Blackh [facility] Adult Medicine UNK - Ambulatory Encounter Nela Stallworth [facility] Adult Medicine HIV infectionHepatitis A immunityHepatitis B immunity - Ambulatory Encounter Cliff Napier [facility] Center UNK - Ambulatory Encounter Mare Carbajal [...] Medicine Osteopenia - Ambulatory Encounter Cliff Jackson [facility] Adult Medicine UNK - Ambulatory Encounter Rinal Jorje [facility] Adult Medicine UNK - Ambulatory Encounter Rinal Recinos Cliff Jackson LM Adult Medicine UNK - Ambulatory Encounter Cliff Jackson [facility] Adult Medicine UNK - Ambulatory Encounter Cliff GoldsteinLogkendrick [facility] Adult Medicine UNK - Ambulatory Encounter Sandra Monge [facility]Logic Jeromy Recinos [facility] Adult Medicine UNK - Ambulatory Encounter Sandra Monge LinkLogic Meghna Arnold [facility] Adult Medicine UNK - Ambulatory Encounter Fax Status [facility] UNK - Ambulatory Encounter Fax Status [facility] UNK - Ambulatory Encounter Fax Status [facility] UNK - Ambulatory Encounter Fax Status [facility] UNK - Ambulatory Encounter Mare Murillo [facility] Adult Medicine UNK - Ambulatory Encounter Jeromy Recinos [facility]Log[facility] Mare aCrbajal [facility] Adult Medicine UNK - Ambulatory Encounter Jeromy Recinos [facility] Adult Medicine UNK - Ambulatory Encounter Meghna Nash [facility] Adult Medicine UNK - Ambulatory Encounter Fax Status [facility] UNK - Ambulatory Encounter Fax Status [facility] UNK - Ambulatory Encounter Sandra Monge [facility] Adult Medicine UNK - Ambulatory Encounter Sandra Nash [facility] Adult Medicine UNK - Ambulatory Encounter Lashaun Monge [facility] UNK - Ambulatory Encounter Sandra Monge LinkLog[facility] Adult Medicine UNK - Ambulatory Encounter Jeromy Recinos [facility] Adult Medicine UNK - Ambulatory Encounter Jeromy Jackson [facility] Adult Medicine UNK - Ambulatory Encounter Cliff Jackson [facility] Adult Medicine UNK - Ambulatory Encounter Meghna Nash [facility] Adult Medicine UNK - Ambulatory Encounter Cliff Jackson [facility] Adult Medicine UNK - Ambulatory Encounter Fax [facility] UNK - Ambulatory Encounter Fax Status [facility] UNK - Ambulatory Encounter Sandra GoldsteinLogic [facility] Adult Medicine UNK - Ambulatory Encounter Sandra Monge [facility] Adult Medicine UNK - Ambulatory Encounter Sandra Rubirachell Nash Yoly Quiles [facility] Adult Medicine Increased transaminase level - Ambulatory Encounter Sandra Monge LinkLog[facility] Adult Medicine UNK - Ambulatory Encounter Sandra Mcgowan [facility] Adult Medicine UNK - Ambulatory Encounter Sandra Monge [facility]Log[facility] Adult Medicine UNK - Ambulatory Encounter Sandra Monge [facility] Adult Medicine UNK - Ambulatory Encounter Sandra Martinez [facility] Adult Medicine Hx Bronchitis acute with bronchospasmHyponatremiaHyperkalemiaHypercalcemia - Ambulatory Encounter Sandra Lanza [facility]herence, [facility] Adult Medicine UNK - Ambulatory Encounter Sandra Lanza [facility], [facility] Adult Medicine UNK - Ambulatory Encounter Cliff Jackson [facility] Adult Medicine UNK - Ambulatory Encounter Sandra Monge [facility] Adult Medicine UNK - Ambulatory Encounter Sandra Monge LinkLogic Cliff Jackson [facility] Adult Medicine UNK - Ambulatory Encounter Sandra Lanza [facility]herence, [facility] Adult Medicine UNK - Ambulatory Encounter Sandra Lanza [facility]herence, [facility] Adult Medicine UNK - Ambulatory Encounter Boni Cristina [facility] Public Health Services UNK - Ambulatory Encounter Jazmin Bullard [facility] Vision UNK - Ambulatory Encounter Jazmin Bullard [facility] Vision UNK - Ambulatory Encounter Sandra Monge LinkLogic [facility] Adult Medicine UNK - Ambulatory Encounter Sandra Monge LinkLogic [facility] Adult Medicine UNK - Ambulatory Encounter Sandra Monge [facility] Adult Medicine UNK - Ambulatory Encounter Sandra Martinez [facility] Adult Medicine Onychomycosis, toenailsImmunization update - Ambulatory Encounter Jazmin Bullard [facility] Vision UNK - Ambulatory Encounter Edgard Martin [facility] Vision UNK - Ambulatory Encounter Edgard Martin [facility] Vision UNK - Ambulatory Encounter Edgard Hoffmann [facility] Vision SPECIAL SCREENING EXAMINATION OTH SPEC VIRAL DZ - Ambulatory Encounter Chriss Martin [facility] Vision UNK - Ambulatory Encounter Chrissjesus Martin [facility] Vision UNK - Ambulatory Encounter Chrissjesus Martin [facility] Vision UNK - Ambulatory Encounter Chrissjesus Bullard [facility] Vision Myopia - OURegular astigmatism, bilateralPresbyopia - OU - Ambulatory Encounter Sandra Kowalski [facility] Adult Medicine UNK - Ambulatory Encounter Sandra Vargas [facility] Adult Medicine UNK - Ambulatory Encounter Sandra Vargas [facility] Adult Medicine UNK - Ambulatory Encounter Sandra Yancey MedAdherence [facility] Adult Medicine UNK - Ambulatory Encounter Sandra Lanza [facility], [facility] Adult Medicine UNK - Ambulatory Encounter Sandra Lanza [facility]herence, [facility] Adult Medicine UNK - Ambulatory Encounter Sandra Lanza [facility]herence, [facility] Adult Medicine UNK - Ambulatory Encounter Sandra GoldsteinLogkendrick Lanza [facility], [facility] Adult Medicine UNK - Ambulatory Encounter Sandra Lanza [facility], [facility] Adult Medicine UNK - Ambulatory Encounter Sandra Lomashmisela [facility], [facility] Adult Medicine UNK - Ambulatory Encounter Khloe Mckeon [facility] UNK - Ambulatory Encounter Khloe Lee [facility] UNK - Ambulatory Encounter Amaury Nath [facility] Adult Medicine UNK - Ambulatory Encounter Amaury Nath [facility] Adult Medicine UNK - Ambulatory Encounter Sandra Monge [facility] Adult Medicine UNK - Ambulatory Encounter Sandra Monge [facility] Adult Medicine UNK - Ambulatory Encounter Sandra Hill [facility] Adult Medicine Hx Latent tuberculosis, s/p INH/B6Hx Bronchitis acute with bronchospasm - Ambulatory Encounter Buck Ledesma [facility] Behavioral Health UNK - Ambulatory Encounter Buck Ledesma [facility]Logic [facility] Behavioral Health UNK - Ambulatory Encounter Sandra Vargas [facility] Adult Medicine UNK - Ambulatory Encounter Sandra GoldsteinLogkendrick Vargas [facility] Adult Medicine UNK - Ambulatory Encounter Sandra Bush [facility] UNK - Ambulatory Encounter Buck Ledesma [facility] Behavioral Health UNK - Ambulatory Encounter Buck Ledesma [facility]Logic [facility] Behavioral Health UNK - Ambulatory Encounter Buck Solares [facility] Contact Center UNK - Ambulatory Encounter Sandra Castro [facility] UNK - Ambulatory Encounter Sandra Castro [facility] Adult Medicine UNK - Ambulatory Encounter Sandra Monge LM Adult Medicine UNK - Ambulatory Encounter Sandra Monge LM Adult Medicine UNK - Ambulatory Encounter Sandra Kessler [facility] Adult Medicine UNK - Ambulatory Encounter Sandra Monge LM Adult Medicine UNK - Ambulatory Encounter Sandra Monge LinkLogic [facility] Adult Medicine UNK - Ambulatory Encounter Nancy [facility] UNK - Ambulatory Encounter Khloe Lee [facility] UNK - Ambulatory Encounter Nancy Jones [facility] Adult Medicine UNK - Ambulatory Encounter Buck Burris [facility] Behavioral Health UNK - Ambulatory Encounter Sandra Monge [facility] Adult Medicine UNK - Ambulatory Encounter Sandra Hill [facility] Adult Medicine Hx Latent tuberculosis, s/p INH/[id number] - Ambulatory Encounter Sandra Monge LinkLogic [facility] Adult Medicine UNK - Ambulatory Encounter Sandra Boss [facility] Adult Medicine UNK - Ambulatory Encounter Buck Clarke [facility] UNK - Ambulatory Encounter Buck Ledesma [facility] Behavioral Health UNK - Ambulatory Encounter Buck GoldsteinLogkendrick [facility] Behavioral Health UNK - Ambulatory Encounter Sandra GoldsteinLogkendrick [facility] Adult Medicine UNK - Ambulatory Encounter Buck Mirelesdin Emil Caro [facility] Behavioral Health UNK - Ambulatory Encounter Garetteamon Chamberlainkaden Angi Burris [facility] UNK - Ambulatory Encounter Lashaun Mike [facility] UNK - Ambulatory Encounter Sigrid Est[facility]ad[facility] UNK - Ambulatory Encounter Garetteamon Chamberlainkaden [facility] UNK - Ambulatory Encounter Garetteamon Callie Isi Mildredleon [facility] UNK - Ambulatory Encounter Sandra GoldsteinLogic [facility] Adult Medicine UNK - Ambulatory Encounter Sandra Monge [facility] Adult Medicine UNK - Ambulatory Encounter Sandra Chen [facility] Adult Medicine Flu shot - Ambulatory Encounter Sandra GoldsteinLogic [facility] Adult Medicine UNK - Ambulatory Encounter Sandra Chen [facility] Adult Medicine UNK - Ambulatory Encounter Sandra Monge [facility] Adult Medicine UNK - Ambulatory Encounter Sandra Chen [facility] Adult Medicine BMI < 20 - Ambulatory Encounter Sandra GoldsteinLogic [facility] Adult Medicine UNK - Ambulatory Encounter Sandra GoldsteinLogkendrick [facility] UNK - Ambulatory Encounter Sandra Monge [facility] Adult Medicine UNK - Ambulatory Encounter Sandra Chen [facility] Adult Medicine Immunization updateVitamin D deficiency - Ambulatory Encounter [facility] - Ambulatory Encounter Jason Gilliam [facility] UNK - Ambulatory Encounter Sandra Hill [facility] Adult Medicine UNK - Ambulatory Encounter [facility] Care Coordination Desktop Dex Hill [facility] UNK - Ambulatory Encounter Sandra Monge [facility] Adult Medicine COPDHx Latent tuberculosis, s/p INH/B6 - Ambulatory Encounter Sandra Kowalski [facility] Adult Medicine UNK - Ambulatory Encounter [facility] Manager Civil UNK - Ambulatory Encounter [facility] Manager Civil UNK - Ambulatory Encounter Jason Bradleykirill Nath [facility] UNK - Ambulatory Encounter Sandra Kowalski [facility] Adult Medicine UNK - Ambulatory Encounter Maximus Yancey [facility] Manager Civil UNK - Ambulatory Encounter Sandra Mcgowan [facility] Adult Medicine UNK - Ambulatory Encounter [facility] Manager Civil UNK - Ambulatory Encounter Sandra Monge [facility] Adult Medicine UNK - Ambulatory Encounter Jasper Keller [facility] Behavioral Health DEPRESSIVE DISORDER, OTHER SPECIFIEDALCOHOL USE DISORDER, MODERATETOBACCO USE DISORDER, MODERATE - Ambulatory Encounter Sandra Jamison [facility] Adult Medicine - Ambulatory Encounter Sandra Kowalski [facility] Adult Medicine UNK - Ambulatory Encounter Sandra Monge Ashlee Jonathon Day [facility] Adult Medicine Screening for hypercholesterolemia - Ambulatory Encounter Adrian Cristina [facility] Public Health Services UNK - Ambulatory Encounter Sandra Monge [facility] Vision UNK VITAL SIGNS Date Observation Value Provider pulse rate E&M 96 /min Dorothy Pineda " oxygen saturation, oximetry 99 % Dorothy Pineda " blood pressure, diastolic 74 mm[Hg] Dorothy Pineda " blood pressure, systolic 114 mm[Hg] Dorothy Pineda " temperature E&M 98.2 [degF] Dorothy Pineda " weight E&M 135 lbs. Dorothy Pineda [...] Dorothy Pineda " height E&M 72 [in_i] Dorothybarby Pineda " height in centimeters E&M 182.88 [...] Rosy Ghosh " weight E&M 137.38 lbs. Roys Ghosh " weight in kilograms E&M 62.45 kg Rosy Ghosh " height E&M 72 [in_i] Rosy Ghosh " height in centimeters E&M 182.88 cm Rosy Ghosh oxygen saturation, oximetry 98 % Dorothy Edwin " pulse rate E&M 72 /min Dorothy Pineda " blood pressure, diastolic 89 mm[Hg] Dorothy Edwin " blood pressure, systolic 134 mm[Hg] Dorothy Edwin " temperature E&M 98.7 [degF] Dorothy Edwin " weight E&M 138.13 lbs. Dorothy Edwin " weight in kilograms E&M 62.79 kg Dorothy Edwin " method used to obtain blood pressure automatic Dorothy Edwin " Blood Pressure Position 01 sitting Dorothy [...] " pulse rate E&M 82 /min Dorothy Edwin " temperature E&M 98.5 [degF] Dorothy Edwin " weight E&M 139 lbs. Dorothychanda Pineda " weight in kilograms E&M 63.18 kg Dorothy Edwin " method used to obtain blood pressure automatic Dorothy Edwin " Blood Pressure Position 01 sitting Dorothychanda Pineda " blood pressure, site #1 left arm Dorothy Edwin " temperature site oral Dorothybarby Pineda " height E&M 72 [in_i] Dorothychanda Pineda " height in centimeters E&M 182.88 cm Dorothy Edwin oxygen saturation, oximetry 98 % Cliff Jackson " blood pressure, diastolic 70 mm[Hg] Sheebaly Manuel " blood pressure, systolic 108 mm[Hg] Cliff [...] method used to obtain blood pressure automatic Clfif Jackson " temperature site oral Cliff Jackson [...] used to obtain blood pressure automatic Angi Ava " Blood Pressure Position 01 sitting Angi Ava " blood pressure, site #1 left arm Angi Juan " temperature site oral Angi Juan " height E&M 72 [in_i] Angi Juan " height in centimeters E&M 182.88 cm Angi Ava oxygen saturation, oximetry 95 % Angi Juan " blood pressure, diastolic 88 mm[Hg] Angi Juan " blood pressure, systolic 129 mm[Hg] Angi Juan " pulse rate E&M 96 /min Angi Juan " temperature E&M 98.4 [degF] Angi Juan " weight E&M 142 lbs. Angi Ava " weight in kilograms E&M 64.55 kg Angi Juan " method used to obtain blood pressure automatic Angi Juan " Blood Pressure Position 01 sitting Angi Ava " blood pressure, site #1 left arm Angi Ava " temperature site oral Angi Ava " height E&M 72 [in_i] Angi Ava " height in centimeters E&M 182.88 cm Angi Ava blood pressure, diastolic 62 mm[Hg] Michelle Hill [...] Kessler " weight E&M 130.40 lbs. Elizabeth Checo " weight in kilograms E&M 59.27 kg Elizabeth Checo " method used to obtain blood pressure [...] used to obtain blood pressure automatic Emil Najeramez " Blood Pressure Position 01 sitting Emil Gordo " blood pressure, site #1 right arm [...] " blood pressure, systolic 110 mm[Hg] Isi Mildredoa " pulse rate E&M 120 /min Isi Mildredoa " weight E&M 136 lbs. Isi Bliss " weight in kilograms E&M 61.82 kg Isi Bliss " height E&M 72 [in_i] Isi Bliss " height in centimeters E&M 182.88 cm Isi Bliss blood pressure, diastolic 74 mm[Hg] Deepika Chen " blood pressure, systolic 109 mm[Hg] Deepika Chen " pulse rate E&M 80 /min Deepika Chen " oxygen saturation, oximetry 99 % Deepika Gustavo " temperature E&M 97.0 [degF] Deepika Chen " weight E&M 136.80 lbs. Deepika Gusatvo " weight in kilograms E&M 62.18 kg Deepika Gustavo " method used to obtain blood pressure [...] " pulse rate E&M 86 /min Michelle Sergio " temperature E&M 97.4 [...] creatinine, urine, 24 hour 2076 mg/24h [facility] [id number] High " creatinine, random, urine 38.1 mg/dL [...] creatinine, urine, 24 hour 1562 mg/24h [facility] [id number] " creatinine, random, urine 25.4 mg/dL [facility] [...] >3.0 " B-12, serum 471 pg/mL [facility] [id number] 2254/04/21 human leukocyte antigen B57 negative Sandra Monge [...] T-helper cells (CD4) count 1226 /UL [facility] [phone] HISTORY OF IMMUNIZATIONS Date Vaccine Dose Lot Number Status riri klein [facility] [id number] sanofi pasteur 0.5 mL [id number] completed HISTORY OF MEDICATION USE Medication Instructions Dates Provider Comments MELOXICAM 7.5 MG ORAL TABLET Take 1 tablet orally once daily as needed Nela Shrikanth DRYSOL 20 % EXTERNAL SOLUTION Apply once daily Nela Shrikanth HYPERCARE 15 % EXTERNAL SOLUTION Apply once daily as needed Nela Shrhaily FLUOXETINE 20 MG CAPSULE TAKE ONE CAPSULE BY MOUTH DAILY Marcelino Bruceo PIFELTRO 100 MG ORAL TABLET Take 1 tablet orally once daily Nela Wayne ONDANSETRON 4 MG ORAL TABLET DISINTEGRATING 1 [...] once a day with food - Sandra Mariposa SOCIAL HISTORY Date Observation Value Provider drug [...] busy though". Not homeless. Born in [facility]. City: [place]. State: [place]. Lives w/ mom and step-father in [place], 2 cats. Unemployed since November 2016. Highest education level: bachelor's degree. Not in workforce. Not on disability. 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 Bachelor's degree in [employer] Literature at [employer]. Sex at : Male. Sexual orientation: [...] busy though". Not homeless. Born in [facility]. City: [place]. State: [place]. Lives w/ mom and step-father in [place], [facility]. Unemployed since November 2016. Highest education level: bachelor's degree. Not in workforce. Not on disability. 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 Bachelor's degree in [employer] Literature at [employer]. Sex at : Male. Sexual orientation: Palacio. Gender identity: Male. Gender of partner(s): Male. Age of first sexual intercourse: 17. Sexually Active: No. Not sexually active. Dorothy Pineda " social history reviewed E&M reviewed today Dorothy Pineda " assessment of health literacy ([place] [facility] 2014 Standards, 3C10) [...] busy though". Not homeless. Born in [facility]. City: [place]. State: [place]. Lives w/ mom and step-father in [address] Unemployed since November 2016. Highest education level: bachelor's degree. Not in workforce. Not on disability. 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 Bachelor's degree in [place] Literature at [employer]. Sex at : Male. Sexual orientation: Palacio. Gender identity: Male. Gender of partner(s): Male. Age of first sexual intercourse: 17. Sexually Active: No. Not sexually active. Marcelino Brucegurwinder " social history reviewed E&M reviewed today [...] busy though". Not homeless. Born in [facility]. City: [place]. State: [place]. Lives w/ mom and step-father in [place], [facility]. Unemployed since November 2016. Highest education level: bachelor's degree. Not in workforce. Not on disability. 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 Bachelor's degree in [place] Literature at [employer]. Sex at : Male. Sexual orientation: Palacio. Gender identity: Male. Gender of partner(s): Male. Age of first sexual intercourse: 17. Sexually Active: No. Not sexually active. Dorothychanda Pineda " social history reviewed E&M reviewed today Dorothy Pineda " assessment of health literacy ([facility] 2014 Standards, 3C10) Adequate Dorothy Pineda [...] busy though". Not homeless. Born in [facility]. City: [place]. State: [place]. Lives w/ mom and step-father in [place], 2 cats. Unemployed since November 2016. Highest education level: bachelor's degree. Not in workforce. Not on disability. 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 Bachelor's degree in [place] Literature at [employer]. Sex at : Male. Sexual orientation: Palacio. Gender identity: Male. Gender of partner(s): Male. Age of first sexual intercourse: 17. Sexually Active: No. Not sexually active. Marcelino Li Callizo " social history reviewed E&M reviewed today Marcelino Leoz Callizo " sexual orientation Palacio Dylon E Aaron " is there any chance that you could be ? No Dylon E Aaron " assessment of health literacy ([facility] 2014 Standards, 3C10) Adequate Dylon E [...] though". Not homeless. Born in [place]. City: [place]. State: [place]. Lives w/ mom and step-father in [place], 2 cats. Unemployed since November 2016. Highest education level: bachelor's degree. Not in workforce. Not on disability. 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 Bachelor's degree in [place] Literature at [employer]. Sex at : Male. Sexual orientation: [...] though". Not homeless. Born in [place]. City: [place]. State: [place]. Lives w/ mom and step-father in [place], 2 cats. Unemployed since November 2016. Highest education level: bachelor's degree. Not in workforce. Not on disability. 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 Bachelor's degree in [place] Literature at [employer]. Sex at : Male. Sexual orientation: Palacio. Gender identity: Male. Gender of partner(s): Male. Age of first sexual intercourse: 17. Sexually Active: No. Not sexually active. Dorothy Pineda " social history reviewed E&M reviewed today Dorothy Pineda " assessment of health literacy ([facility] 2014 Standards, 3C10) Adequate Dorothychanda Pineda [...] busy though". Not homeless. Born in [facility]. City: [place]. State: [place]. Lives w/ mom and step-father in [place], cats. Unemployed since November 2016. Highest education level: bachelor's degree. Not in workforce. Not on disability. 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 Bachelor's degree in [place] Literature at [employer]. Sex at : Male. Sexual orientation: Palacio. Gender identity: Male. Gender of partner(s): Male. Age of first sexual intercourse: 17. Sexually Active: No. Not sexually active. Sheebarachell Manuel " social history reviewed E&M reviewed today Sheebarachell Manuel " is there any chance that you could be ? No Cliff Jackson " assessment of health literacy ([facility] 2014 Standards, 3C10) Adequate Cliff Jackson [...] busy though". Not homeless. Born in [facility]. City: [place]. State: [place]. Lives w/ mom and step-father in [place], 2 cats. Unemployed since November 2016. Highest education level: bachelor's degree. Not in workforce. Not on disability. 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 Bachelor's degree in [place] Literature at [employer]. Sex at : Male. Sexual orientation: Palacio. Gender identity: Male. Gender of partner(s): Male. Age of first sexual intercourse: 17. Sexually Active: No. Not sexually active. Cliff Jackson " social history reviewed E&M reviewed today Cliff Jackson " is there any chance that you could be ? No Cliff Jackson " assessment of health literacy ([facility] 2014 Standards, 3C10) Adequate Cliff Jackson " passive cigarette smoke exposure Yes Cliff Jackson " smoking status current every day smoker Cliff Jackson " smoking, advice to quit Yes Sandra Monge " Exercise Program Referral T Sandra Monge " Weight Management Counseling Provided T Sandra Monge " Nutrition intervention T Sandra Monge " drug use, illicit Previously Anginava Martinez " alcohol use Currently Angi Martinez [...] busy though". Not homeless. Born in [facility]. City: [place]. State: [place]. Lives w/ mom and step-father in [place], 2 cats. Unemployed since November 2016. Highest education level: bachelor's degree. Not in workforce. Not on disability. 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 Bachelor's degree in [place] Literature at [employer]. Sex at : Male. Sexual orientation: Palacio. Gender identity: Male. Gender of partner(s): Male. Age of first sexual intercourse: 17. Sexually Active: No. Not sexually active. Angi Martinez " social history reviewed E&M reviewed today Angi Martinez " sexual orientation Palacio Angi Martinez " is there any chance that you could be ? No Angi Martinez " assessment of health literacy ([facility] 2014 Standards, 3C10) Adequate Angi Martinez [...] busy though". Not homeless. Born in [facility]. City: [place]. State: [place]. Lives w/ mom and step-father in [place], 2 cats. Unemployed since November 2016. Highest education level: bachelor's degree. Not in workforce. Not on disability. 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 Bachelor's degree in [place] Literature at [employer]. Sex at : Male. Sexual orientation: Palacio. Gender identity: Male. Gender of partner(s): Male. Age of first sexual intercourse: 17. Sexually Active: No. Not sexually active. Angi Juan " social history reviewed E&M reviewed today Angi Martinez " sexual orientation Palacio Angi Martinez " is there any chance that you could be ? No Angi Martinez " assessment of health literacy ([facility] 2014 Standards, 3C10) Adequate Angi Martinez [...] busy though". Not homeless. Born in [facility]. City: [place]. State: [place]. Lives w/ mom and step-father in [place], cats. Unemployed since November 2016. Highest education level: bachelor's degree. Not in workforce. Not on disability. 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 Bachelor's degree in [place] Literature at [employer]. Sex at : Male. Sexual orientation: [...] Hill " assessment of health literacy ([facility] 2014 Standards, 3C10) Adequate Michelle Hill [...] Kessler " assessment of health literacy ([facility] 2014 Standards, 3C10) Adequate Elizabeth Kessler [...] Michelleadam Hill " assessment of health literacy ([facility] 2014 Standards, 3C10) Adequate Michelle Sergio [...] busy though". Not homeless. Born in [facility]. City: [place]. State: [place]. Lives w/ mom and step-father in [place], 2 cats. Unemployed since November 2016. Highest education level: bachelor's degree. Not in workforce. Not on disability. 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 Bachelor's degree in [place] Literature at [employer]. Sex at : Male. Sexual orientation: [...] Chen " assessment of health literacy ([facility] 2014 Standards, 3C10) Adequate Deepika Chen Exercise Program Referral Mendez Monge " Weight Management Counseling Provided Mendez Monge " Nutrition intervention Mendez Mnoge " social history E&M Single. Single. Parents when pt was age 16, mother and father both remarried. Relationship with father "I love him but don't like him... we talk on phone 1x a week". Relationship with mother and step-father "perfect and very good". One younger brother, "get along well, he is very busy though". Not homeless. Born in [facility]. City: [place]. State: [place]. Lives w/ mom and step-father in [place], [facility]. Unemployed since November 2016. Highest education level: bachelor's degree. Not in workforce. Not on disability. 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 Bachelor's degree in [place] Literature at [employer]. Sex at : Male. Sexual orientation: [...] Deepika Jessicarez " assessment of health literacy ([facility] 2014 Standards, 3C10) Adequate Deepika Gustavo [...] busy though". Not homeless. Born in [facility]. City: [place]. State: [place]. Lives w/ mom and step-father in [place], 2 cats. Unemployed since November 2016. Highest education level: bachelor's degree. Not in workforce. Not on disability. 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 Bachelor's degree in [place] Literature at [employer]. Sex at : Male. Sexual orientation: [...] Deepika Jessicarez " assessment of health literacy ([facility] 2014 Standards, 3C10) Adequate Deepikabeatris Chen social history reviewed E&M reviewed today [...] busy though". Not homeless. Born in [facility]. City: [place]. State: [place]. Lives w/ mom and step-father in [address] Unemployed since November 2016. Highest education level: bachelor's degree. Not in workforce. Not on disability. 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 Bachelor's degree in [place] Literature at [employer]. Sex at : Male. Sexual orientation: Palacio. Gender identity: Male. Gender of partner(s): Male. Age of first sexual intercourse: 17. Sexually Active: No. Not sexually active. Jasper Garduno " drug use, illicit Previously Jasper Garduno" alcohol use, number maximum drinks per occasion 4-5 beers Jasper Garduno" alcohol use, frequency daily Jasper Garduno " alcohol use Currently Jasper Garduno " current cigarette packs per day 1-1.5 Jasper Garduno " smoking status current every day smoker Jasper Garduno " sexual orientation Palacio Jasper Garduno " sex at Male Jasper Garduno" Occupation #1 Unemployed Jasper Garduno " patient considered to be homeless No Jasper Garduno " social history - sexual practice Not [...] well, he is very busy though". Jasper Garduno " home/family situation, assessment Lives w/ mom and step-father in [address] Jasper Garduno " social history reviewed E&M reviewed today Sandra Monge " social history E&M Single. Spouse/Partner/Significant Other: n/a. Family is aware and supportive. Not homeless. Born in [facility]. City: [place]. State: [place]. Lives in [facility], [place] and stepdad in [place] in [facility]. Not employed. Highest education level: bachelor's degree. [...] Monge " home/family situation, assessment Lives in [facility], [place] and stepdad in [place] in [facility]. Sandra Monge " family support Family is aware and supportive. Sandra Monge " smoking, advice to quit Yes Sandra Monge " assessment of health literacy ([facility] 2014 Standards, 3C10) Adequate Sandra Monge [...] of judgment and insight E&M intact Nela Shrikant " mental status examination: orientation E&M oriented to time, place, and person Nela Schroeder " assessment of mood and affect E&M no depression, anxiety, or agitation Nela Black " Generalized Anxiety Disorder Questionnaire - Question 2 0 Dorothy Pineda " Generalized Anxiety Disorder Questionnaire - Question 1 0 Dorothy Pineda assessment of judgment and insight E&M intact Nela [facility] " assessment of mood and affect E&M good eye contact, normal affect Nela Black " Generalized Anxiety Disorder Questionnaire - Question 2 0 Dorothy Pineda " Generalized Anxiety Disorder Questionnaire - Question 1 0 Dorothy Pineda assessment of mood and affect E&M good eye contact, normal affect Edgard Martin " mental status examination: orientation E&M alert and oriented to person, place, and time Edgard Martin mental status assessment, judgment fair Marcelino Flores " insight (mental status exam) beck Flores " Mental Status Exam: intelligence adequate [...] of judgment and insight E&M intact Nela Alexandre " mental status examination: orientation E&M oriented to time, place, and person Nela Alexandre " assessment of mood and affect E&M [...] congruent, euthymic, normal intensity, normal range, reactive Marcelinojoaquin Jefferson Callizo " mood (mental status exam) pleasant Marcelino Farahizo " mental status assessment, speech activity normal flow, normal pace, normal pressure, normal rate, normal tone, normal volume, spontaneous, loud Marcelinojoaquin Bruceo " mental status assessment, motor activity normal gait, normal posture Marcelino Bruceo " behavior (mental status exam) appropriate, candid, cooperative, good eye contact, polite, responsive Marcelino Farahizo " mental appearance (mental status exam) adequate hygiene, appropriate dress, looks like stated age, neat, smells of heavy cigarette smoke/tobacco Marcelino Bruceo assessment of judgment and insight E&M intact [...] Disorder Questionnaire - Question 1 0 Angi Ava assessment of judgment and insight E&M intact Sandra Mariposa " mental status examination: orientation E&M alert and oriented to person, place, and time Sandra Mariposa " assessment of mood and affect E&M good eye contact, normal affect Sandra Mariposa " Generalized Anxiety Disorder Questionnaire - Question 2 0 Angi Ava " Generalized Anxiety Disorder Questionnaire - Question 1 0 Angi Ava assessment of mood and affect E&M good [...] 0 Elizabeth Kessler mental status assessment, judgment beck Ledesma " insight (mental status exam) beck Ledesma " Mental Status Exam: intelligence adequate [...] cooperative, good eye contact, polite, responsive Buck Chamberlainiuddin " mental appearance (mental status exam) adequate [...] Hill mental status assessment, judgment fair Maryan Bulmaroiuddin " insight (mental status exam) fair Maryan Samiuddin " Mental Status Exam: intelligence adequate fund of information, intact memory processes, oriented to person, oriented to place, oriented to time, oriented to situation, oriented to reality Maryan Samiuddin " hallucinations none Zishan Samiuddin " [...] to reality Garettshan Samiuddin " hallucinations none [facility] Sam[facility] " thought content (mental status exam) [...] time, oriented to situation, oriented to reality [facility] Bulmarojagdeep " hallucinations none [facility] " thought content (mental status exam) (E&M) lucid [facility] " mental status assessment, process able to abstract, goal-directed, logical [facility] " mental status assessment, sensorium alert, attentive, clear [facility] " affect (mental status exam) congruent, euthymic, normal intensity, normal range [facility] " mental status assessment, speech activity normal flow, normal pace, normal pressure, normal rate, normal tone, normal volume, spontaneous, loud [facility] " mental status assessment, motor activity normal gait, normal posture [facility] " behavior (mental status exam) appropriate, candid, cooperative, good eye contact, polite, responsive [facility] " mental appearance (mental status exam) adequate hygiene, appropriate dress, looks like stated age, neat [facility] of judgment and insight E&M intact [...] 1 0 Deepika Chen delusion No Jasper Garduno " mental status [...] Covered libertarian ID *Jasper White 0-100% Other [id number] Sliding Fee - Cat 1 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 Metabolic Panel (14) Lipid Panel CBC With Differential/Platelet CD4/CD8 Ratio Profile RNA, Real Time PCR (Graph) Cyclic citrullinated peptide (CCP), antibody Uric Acid, [...] hypercalcemia - - Est Patient Detailed - 84045 Xray - Spine - Lumboacral - InHouse Est Patient Detailed - 22173 Est Patient Comprehensive Opth - 07818 Est Patient Intermediate Opth - 35871 Est Patient Exp Problem - 78063 Est Patient Detailed - 69262 Est Patient Detailed - 79113 Est Patient Exp Problem - 64072 Est Patient Exp Problem - 73645 Ofc Vst, Est Level III Est Patient Detailed - 91386 First Vx - Ix admin via ID IM or jet injects without counseling by physician Menactra Intramuscular Injectable Vision Vaccines Ordered - Print Consent/Declination Forms Ofc Vst, Est Level IV Xray - Chest - 2 Views - InHouse Handling of specimen for transfer Venipuncture Est Patient Detailed - 51742 Dispensing Visit (UNLIVSTED OPHTHALMOLOGICAL SERVICE/PROCEDURE) INFLUENZA VACCINE QUADRIVALENT 3 YRS PLUS IM Pneumovax Vaccine PPSV23 Admin of Vaccine - Injection - Each Add'l Admin of Vaccine - Injection - 1 Est Patient Detailed - 80824 Progressive lens, per lens Frames, purchases Est Patient Comprehensive Opth - 40910 New Patient Intermediate Opth - 12448 Est Patient Detailed - 86329 Est Patient Detailed - 30255 Est Patient Detailed - 49353 Est Patient Detailed - 91624 Est Patient Exp Problem - 76697 Est Patient Detailed - 03171 Diagnostic evaluation with medical - 19553 INFLUENZA VACCINE QUADRIVALENT 3 YRS PLUS IM Admin of Vaccine - Injection - 1 Est Patient Detailed - 60146 Est Patient Detailed - 15345 Prevnar (PCV13) IM TDAP Admin of Vaccine - Injection - Each Add'l Admin of Vaccine - Injection - 1 Est Patient Well Exam (40 - 64 Yrs) - 69774 Primary Care Service [facility] - Psychiatry Diagnostic evaluation (no medical) - 18454 IB 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 Primary Care Service Linkage Xray - Chest - PA & Lat - InHouse Primary Care Service Linkage Handling of specimen for transfer Venipuncture Integrated Behavioral Health Assessment (IBH) New Patient Well Exam (40 - 64 Yrs) - 50578 Handling of specimen for transfer Venipuncture HISTORY OF PROCEDURES Procedure Date Procedure Name Provider Procedure Notes Status Est Patient Comprehensive Opt - 57661 Edgard Martin completed Est Patient Intermediate Opt - 46214 Chriss Martin completed First Vx - Ix admin via ID IM or jet injects without counseling by physician Nela Schroeder completed Menactra Intramuscular Injectable Nela Schroeder completed Vaccines Ordered - Print Consent/Declination Forms Nela Schroeder completed Venipuncture Sandra Monge completed Dispensing Visit (UNLIVSTED OPHTHALMOLOGICAL SERVICE/PROCEDURE) Jazmin Bullard completed Progressive lens, per lens Jazmin Bullard completed Frames, purchases JazminEntomoPharm Frame #1111 (Pd 60.00) completed Est Patient Comprehensive Opt - 24077 Edgard Martin completed New Patient Intermediate Opt - 68397 Chriss Martin completed Diagnostic evaluation with medical - 92098 Buck Ledesma completed Primary Care Service Linkage Maximus Yancey Time spent with patient: 30 completed Diagnostic evaluation (no medical) - 44083 Jasper Garduno completed [facility] 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
--- OUTSIDE RECORDS SUMMARY | 2020-02-10 14:15 | XMS REPORT ---
Author Author Admin, [place] Organization Unknown Address Unknown Phone Unavailable PROBLEMS [...] Jasper Garduno Screening for hypercholesterolemia completed - Nela Schroeder ENCOUNTERS Date Type Provider Location Encounter Diagnosis - Ambulatory Encounter Nela Blackh Nela Blackh [facility] Adult [facility] UNK - Ambulatory Encounter Maximus Yancey [facility] Curriculum Assistant Principal UNK - Ambulatory Encounter Nelairina Blackh [facility] Adult [facility] UNK - Ambulatory Encounter Nela Pineda [facility] Adult [facility] Hyponatremia - Ambulatory Encounter Dorothy Youssef Roly [facility] Contact Center UNK - Ambulatory Encounter Marcelino Flores [facility] Behavioral Health UNK - Ambulatory Encounter Nela Schroeder [facility] Adult Medicine UNK - Ambulatory Encounter Nelairina Canasnth [facility] Adult Medicine UNK - Ambulatory Encounter Nela Alexandre Canasnth [facility] Adult Medicine UNK - Ambulatory Encounter Nelairina Mcgowan [facility] Adult Medicine UNK - Ambulatory Encounter Nela Alexandre Hancockikanth [facility] Adult Medicine UNK - Ambulatory Encounter Nela Wayneh Nela Canasnth [facility] Services UNK - Ambulatory Encounter Nela Alexandre Schroeder [facility] Services UNK - Ambulatory Encounter Nela Alexandre Blackh [facility] Adult Medicine UNK - Ambulatory Encounter Nela Mcgowan [facility] Adult Medicine ArthralgiaChronic back pain - Ambulatory Encounter Edgard Martin [facility] Vision UNK - Ambulatory Encounter Edgard Song Martinmargi Martin [facility] Vision UNK - Ambulatory Encounter Edgard Martin [facility] Vision SPECIAL SCREENING EXAMINATION OTH SPEC VIRAL DZ - Ambulatory Encounter Chriss Martin [facility] Vision UNK - Ambulatory Encounter Chriss Martin [facility] Vision UNK - Ambulatory Encounter Chrissjesus Martin [facility] Vision UNK - Ambulatory Encounter Chrissjesus Barajas [facility] Vision Encounter for exam of eyes and vision- abnormal findings - Ambulatory Encounter Betzaida Dunlap [facility] Services UNK - Ambulatory Encounter Martha Stallworth [facility] Public Health Services UNK - Ambulatory Encounter Nela Schroeder [facility] Adult Medicine UNK - Ambulatory Encounter Nela Cruz [facility] Services UNK - Ambulatory Encounter Marcelino Ghosh [facility] Behavioral Health UNK - Ambulatory Encounter Nela Lanza [facility] Adult Medicine UNK - Ambulatory Encounter Nela Schroeder [facility] Adult Medicine UNK - Ambulatory Encounter Nela Pineda [facility] Adult Medicine UNK - Ambulatory Encounter Nela Lanza [facility] Adult Medicine UNK - Ambulatory Encounter Marcelino Breanneoz Callizo [facility] Behavioral Health UNK - Ambulatory Encounter Marcelino Leoz Callizo Thida Santos [facility] Behavioral Health UNK - Ambulatory Encounter Nela Schroeder [facility] Adult Medicine UNK - Ambulatory Encounter Nela Schroeder [facility] Adult Medicine UNK - Ambulatory Encounter Nela Walker [facility] Adult Medicine Abscess, axilla, right - Ambulatory Encounter Sandra Lanza [facility] Adult Medicine UNK - Ambulatory Encounter Dorothy Alberts [facility] Contact Center UNK - Ambulatory Encounter Isi Bliss [facility] Contact Center UNK - Ambulatory Encounter Buck Arringtons Isi Ramsaylermo Leoz Callizo Apurva Isbell [facility] Contact Center UNK - Ambulatory Encounter Nela Schroeder [facility] Adult Medicine UNK - Ambulatory Encounter Nela Schroeder [facility] Adult Medicine UNK - Ambulatory Encounter Nela Schroeder [facility] Adult Medicine UNK - Ambulatory Encounter Nela Pineda [facility] Adult [facility] Screening for hypercholesterolemiaImmunization updateFlu shotHx Bronchitis acute with bronchospasmHyponatremiaHyperkalemiaHypercalcemia - Ambulatory Encounter Rinshara Jorje [facility] Adult Medicine UNK - Ambulatory Encounter Rinal Recinoscaryl Jackson [facility] Adult Medicine UNK - Ambulatory Encounter Rinal Recinos [facility] Adult Medicine UNK - Ambulatory Encounter Mare Carbajal [facility] Adult Medicine UNK - Ambulatory Encounter Dorothy Nash [facility] Contact Center UNK - Ambulatory Encounter Destinishara Recinos [facility] Adult Medicine UNK - Ambulatory Encounter Cliff Arnold [facility] Adult Medicine UNK - Ambulatory Encounter Nela Schroeder [facility] Adult Medicine UNK - Ambulatory Encounter Nela Schroeder [facility] Adult Medicine UNK - Ambulatory Encounter Dorothy Alberts [facility] Contact Center UNK - Ambulatory Encounter Nela Schroeder [facility] Adult Medicine UNK - Ambulatory Encounter Martha Stallworth [facility] Public Health Services UNK - Ambulatory Encounter Nela Schroeder [facility] Adult Medicine UNK - Ambulatory Encounter Nela Stallworth [facility] Adult Medicine HIV infectionHepatitis A immunityHepatitis B immunity - Ambulatory Encounter Cliff Napier [facility] UNK - Ambulatory Encounter Mare Carbajal [facility] Adult Medicine UNK - Ambulatory Encounter Rinal Recinos Cliff Napier [facility] Adult Medicine UNK - Ambulatory Encounter Cliff Recinos [facility] Adult Medicine UNK - Ambulatory Encounter Rinal Recinos [facility] Adult Medicine UNK - Ambulatory Encounter Rinal Recinos [facility] Adult Medicine UNK - Ambulatory Encounter Jazlyn Nash [facility] Adult Medicine UNK - Ambulatory Encounter Rinal Recinos [facility] Adult Medicine UNK - Ambulatory Encounter Rinal Recinos [facility] Adult Medicine UNK - Ambulatory Encounter Rinal Recinos [facility] Adult Medicine UNK - Ambulatory Encounter Sandra Monge [facility] Adult Medicine UNK - Ambulatory Encounter Sandra Monge [facility] Adult Medicine Osteopenia - Ambulatory Encounter Cliff Jackson [facility] Adult Medicine UNK - Ambulatory Encounter Rinal Recinos LM Adult Medicine UNK - Ambulatory Encounter Rinal Recinos Trenatojaswant Manuel [facility] Adult Medicine UNK - Ambulatory Encounter Bethanyjaswant Manuel [facility] Adult Medicine UNK - Ambulatory Encounter Bethanyjaswant Manuel [facility]ic [facility] Adult Medicine UNK - Ambulatory Encounter Sandra Monge [facility] Jeromy Recinos [facility] Adult Medicine UNK - Ambulatory Encounter Sandra Monge [facility] Meghna Arnold [facility] Adult Medicine UNK - Ambulatory Encounter Fax Status [facility] UNK - Ambulatory Encounter Fax Status LinkLogic [facility] UNK - Ambulatory Encounter Fax Status LinkLogic [facility] UNK - Ambulatory Encounter Fax Status LinkLogic [facility] UNK - Ambulatory Encounter Mare Murillo [facility] Adult Medicine UNK - Ambulatory Encounter Rinal Recinos [facility] Mare Carbajal [facility] Adult Medicine UNK - Ambulatory Encounter Jeromy Recinos LinkLogic [facility] Adult Medicine UNK - Ambulatory Encounter Meghna Nash [facility] Adult Medicine UNK - Ambulatory Encounter Fax Status LinkLogFormerly [facility] Services UNK - Ambulatory Encounter Fax Status LinkLogFormerly [facility] Services UNK - Ambulatory Encounter Sandra Monge [facility] Adult Medicine UNK - Ambulatory Encounter Sandra Nash [facility] Adult Medicine UNK - Ambulatory Encounter [facility]un [facility] UNK - Ambulatory Encounter Sandra Monge LinkLogic [facility] Adult Medicine UNK - Ambulatory Encounter Jeromy Recinos [facility] Adult Medicine UNK - Ambulatory Encounter Jeromy Jackson [facility] Adult Medicine UNK - Ambulatory Encounter Cliff Jackson [facility] Adult Medicine UNK - Ambulatory Encounter Meghna Nash [facility] Adult Medicine UNK - Ambulatory Encounter Bethanyjaswant Manuel [facility] Adult Medicine UNK - Ambulatory Encounter Fax Status [facility] UNK - Ambulatory Encounter Fax Status [facility] UNK - Ambulatory Encounter Sandra Monge LinkLogic [facility] Adult Medicine UNK - Ambulatory Encounter Sandra Monge [facility] Adult Medicine UNK - Ambulatory Encounter Sandra Zhaoberrachell Virktim [facility] Adult Medicine Increased transaminase level - Ambulatory Encounter Sandra Monge LinkLogic [facility] Adult Medicine UNK - Ambulatory Encounter Sandra Mcgowan [facility] Adult Medicine UNK - Ambulatory Encounter Sandra Monge LinkLogic [facility] Adult Medicine UNK - Ambulatory Encounter Sandra Monge [facility] Adult Medicine UNK - Ambulatory Encounter Sandra Martinez [facility] Adult Medicine Hx Bronchitis acute with bronchospasmHyponatremiaHyperkalemiaHypercalcemia - Ambulatory Encounter Sandra Lanza [facility]herence, [facility] Adult Medicine UNK - Ambulatory Encounter Sandra Lanza [facility]herence, [facility] Adult Medicine UNK - Ambulatory Encounter Cliff Jackson [facility] Adult Medicine UNK - Ambulatory Encounter Sandra Monge [facility] Adult Medicine UNK - Ambulatory Encounter Sandra Monge [facility] Nasofia Jackson [facility] Adult Medicine UNK - Ambulatory Encounter Sandra Lanza [facility]herence, [facility] Adult Medicine UNK - Ambulatory Encounter Sandra Lanza [facility]herence, [facility] Adult Medicine UNK - Ambulatory Encounter Boni Cristina [facility] Public Health Services UNK - Ambulatory Encounter Jazmin Bullard [facility] Vision UNK - Ambulatory Encounter Jazmin Bullard [facility] Vision UNK - Ambulatory Encounter Sandra Monge LinkLogic [facility] Adult Medicine UNK - Ambulatory Encounter Snadra GoldsteinLogic [facility] Adult Medicine UNK - Ambulatory Encounter Sandra Monge [facility] Adult Medicine UNK - Ambulatory Encounter Sandra Martinez [facility] Adult Medicine Onychomycosis, toenailsImmunization update - Ambulatory Encounter Jazmin Bullard [facility] Vision UNK - Ambulatory Encounter Edgard Martin [facility] Vision UNK - Ambulatory Encounter Edgard Martin [facility] Vision UNK - Ambulatory Encounter Edgard Hoffmann [facility] Vision SPECIAL SCREENING EXAMINATION OTH SPEC VIRAL DZ - Ambulatory Encounter Chriss Martin [facility] Vision UNK - Ambulatory Encounter Chrissjesus Martin [facility] Vision UNK - Ambulatory Encounter Chriss Martin [facility] Vision UNK - Ambulatory Encounter Chrissjesus Bullard [facility] Vision Myopia - OURegular astigmatism, bilateralPresbyopia - OU - Ambulatory Encounter Sandra Kowalski [facility] Adult Medicine UNK - Ambulatory Encounter Sandra Vargas [facility] Adult Medicine UNK - Ambulatory Encounter Sandra Vargas [facility] Adult Medicine UNK - Ambulatory Encounter Sandra Yancey MedAdherence [facility] Adult Medicine UNK - Ambulatory Encounter Sandra Lanza MedAdherence, [facility] Adult Medicine UNK - Ambulatory Encounter Sandra Lanza [facility], [facility] Adult Medicine UNK - Ambulatory Encounter Sandra Lanza [facility], [facility] Adult Medicine UNK - Ambulatory Encounter Sandra Lanza [facility], [facility] Adult Medicine UNK - Ambulatory Encounter Sandra Lanza [facility], [facility] Adult Medicine UNK - Ambulatory Encounter Sandra Wallaceer [facility], [facility] Adult Medicine UNK - Ambulatory Encounter Khloe Mckeon [facility] UNK - Ambulatory Encounter Khloe Jesus [facility] UNK - Ambulatory Encounter Amaury Nath [facility] Adult Medicine UNK - Ambulatory Encounter Amaury Nath [facility] Adult Medicine UNK - Ambulatory Encounter Sandra Monge [facility] Adult Medicine UNK - Ambulatory Encounter Sandra Monge [facility] Adult Medicine UNK - Ambulatory Encounter Sandra Hill [facility] Adult Medicine Hx Latent tuberculosis, s/p INH/B6Hx Bronchitis acute with bronchospasm - Ambulatory Encounter Buck Ledesma [facility] Behavioral Health UNK - Ambulatory Encounter Buck GoldsteinLogic [facility] Behavioral Health UNK - Ambulatory Encounter Sandra Vargas [facility] Adult Medicine UNK - Ambulatory Encounter Sandra GoldsteinLogkendrick Vargas [facility] Adult Medicine UNK - Ambulatory Encounter Sandra Bush [facility] UNK - Ambulatory Encounter Buck Ledesma [facility] Behavioral Health UNK - Ambulatory Encounter Buck Ledesma LinkLogic [facility] Behavioral Health UNK - Ambulatory Encounter Buck Solares [facility] Contact Center UNK - Ambulatory Encounter Sandra Childsuyen [facility] UNK - Ambulatory Encounter Sandra Monge LinkLogic Leny Nicol Gloria [facility] Adult Medicine UNK - Ambulatory Encounter Sandra Monge LM Adult Medicine UNK - Ambulatory Encounter Sandra Monge LM Adult Medicine UNK - Ambulatory Encounter Sandra Kessler [facility] Adult Medicine UNK - Ambulatory Encounter Sandra Monge [facility] Adult Medicine UNK - Ambulatory Encounter Sandra Monge LinkLogic [facility] Adult Medicine UNK - Ambulatory Encounter Nancy [facility] UNK - Ambulatory Encounter Khloe Lee [facility] UNK - Ambulatory Encounter Nancy GoldsteinLogic [facility] Adult Medicine UNK - Ambulatory Encounter Buck Burris [facility] Behavioral Health UNK - Ambulatory Encounter Sandra Monge [facility] Adult Medicine UNK - Ambulatory Encounter Sandra Hill [facility] Adult Medicine Hx Latent tuberculosis, s/p INH/M3Adlrfkodtnrjiyvpidsg - Ambulatory Encounter Sandra GoldsteinLogic LM Adult Medicine UNK - Ambulatory Encounter Sandra Boss [facility] Adult Medicine UNK - Ambulatory Encounter Buck Clarke [facility] UNK - Ambulatory Encounter Buck Ledesma [facility] Behavioral Health UNK - Ambulatory Encounter Buck GoldsteinLogic [facility] Behavioral Health UNK - Ambulatory Encounter Sandra Monge LinkLogic [facility] Adult Medicine UNK - Ambulatory Encounter Garetteamon Chamberlainkaden Emil [facility] Behavioral Health UNK - Ambulatory Encounter Garetteamon Chamberlainkaden Angi Burris [facility] Behavioral Health UNK - Ambulatory Encounter Lashaun Mike [facility] UNK - Ambulatory Encounter [facility] UNK - Ambulatory Encounter Garetteamon Keatingjagdeep [facility] Behavioral Health UNK - Ambulatory Encounter Buck Bliss [facility] Behavioral Health UNK - Ambulatory Encounter Sandra Monge LinkLogic [facility] Adult Medicine UNK - Ambulatory Encounter Sandra Monge [facility] Adult Medicine UNK - Ambulatory Encounter Sandra Chen [facility] Adult Medicine Flu shot - Ambulatory Encounter Sandra Monge LinkLogic [facility] Adult Medicine UNK - Ambulatory Encounter Sandra Chen [facility] Adult Medicine UNK - Ambulatory Encounter Sadnra Monge LM Adult Medicine UNK - Ambulatory Encounter Sandra Chen [facility] Adult Medicine BMI < 20 - Ambulatory Encounter Sandra Monge LinkLogic [facility] Adult Medicine UNK - Ambulatory Encounter Sandra Monge LinkLogic [facility] UNK - Ambulatory Encounter Sandra Monge [facility] Adult Medicine UNK - Ambulatory Encounter Sandra Hill Deepika Gustavo [facility] Adult Medicine Immunization updateVitamin D deficiency - Ambulatory Encounter Sandra Monge [facility] Services UNK - Ambulatory Encounter Jasonyoel Gliliam [facility] UNK - Ambulatory Encounter Sandra Hill [facility] Adult Medicine UNK - Ambulatory Encounter [facility] Care Coordination Desktop [facility] UNK [facility] Ambulatory Encounter Sandra Monge [facility] Adult Medicine COPDHx Latent tuberculosis, s/p INH/B6 - Ambulatory Encounter Sandra [facility]stein[facility] Adult Medicine UNK - Ambulatory Encounter Maximus Yancey [facility] Curriculum Assistant Principal UNK - Ambulatory Encounter Maximus Yancey [facility] Curriculum Assistant Principal UNK - Ambulatory Encounter Jason Bradleykirill [facility]remountain point [facility] centerchanda [facility] UNK - Ambulatory Encounter Sandra Kowalski [facility] Adult Medicine UNK - Ambulatory Encounter Maximus Yancey [facility] Curriculum Assistant Principal UNK - Ambulatory Encounter Sandra Mcgowan [facility] Adult Medicine UNK - Ambulatory Encounter Maximuskrys Yancey [facility] Curriculum Assistant Principal UNK - Ambulatory Encounter Sandra Monge [facility] Adult Medicine UNK - Ambulatory Encounter Jasper Keller [facility] Behavioral Health DEPRESSIVE DISORDER, OTHER SPECIFIEDALCOHOL USE DISORDER, MODERATETOBACCO USE DISORDER, MODERATE - Ambulatory Encounter Sandra Jamison [facility] Adult Medicine - Ambulatory Encounter Sandra Monge LinkLogkendrick [facility] Adult Medicine UNK - Ambulatory Encounter Sandra Day [facility] Adult Medicine Screening for hypercholesterolemia - Ambulatory Encounter Adriangurwinder Cristina [facility] Public Health Services UNK - Ambulatory Encounter Sandra Monge [facility] Vision UNK VITAL SIGNS [...] Dorothy Pineda " weight E&M 139.38 lbs. Dorothychanda Pineda " weight in kilograms E&M 63.35 kg Dorothychanda Pineda " method used to obtain blood pressure automatic Dorothychanda Pineda " Blood Pressure Position 01 sitting [...] Edwin " Blood Pressure Position 01 sitting Dorothybarby Pineda " blood pressure, site #1 left arm Dorothybarby Pineda " temperature site oral Dorothy Edwin [...] Belle Aaron " temperature site oral Dylon Belle Walker " weight E&M 141 lbs. Dylon Belle Walker " weight in kilograms E&M 64.09 kg Dylon Belle Walker " height E&M 72 [in_i] Dylon Belle Walker " height in centimeters E&M 182.88 cm Dylon Belle Aaron blood pressure, diastolic 96 mm[Hg] Dorothy Pineda " blood pressure, systolic 125 mm[Hg] Dorothy Pineda " oxygen saturation, oximetry 98 % Dorothy Pineda " pulse rate E&M 82 /min Dorothy Pineda " temperature E&M 98.5 [degF] Dorothy Pineda " weight E&M 139 lbs. Dorothy Edwin [...] " blood pressure, site #1 right arm Trenasofia Manuel " Blood Pressure Position 01 sitting Bethanylouiserachell Jackson " method used to obtain blood pressure automatic Cliff Jackson " temperature site oral Cliff Jackson " height E&M 72 [in_i] Trenasofia Manuel " height in centimeters E&M 182.88 cm Trenasofia Jackson temperature site oral Kari Crawford " [...] Cliff Jackson " temperature E&M 99.1 [degF] Bethanylouiserachell Jackson " weight E&M 146 lbs. Bethanyjaswant Manuel " weight in kilograms E&M 66.36 kg Bethanyjaswant Manuel " blood pressure, site #1 right arm Trenasofia Jackson " Blood Pressure Position 01 sitting Cliff Jackson " method used to obtain blood pressure automatic Cliff Jackson " temperature site oral Bethanyjaswant Jackson " height E&M 72 [in_i] Cliff Jackson " height in centimeters E&M 182.88 cm Cliff Jackson blood pressure, diastolic 79 mm[Hg] Angi Juan " blood pressure, systolic 114 mm[Hg] Angi Juan " oxygen saturation, oximetry 98 % Angi [place] " pulse rate E&M 88 /min Angi Juan " temperature E&M 98.9 [degF] Angi Juan " weight E&M 145.13 lbs. Angi Juan " weight in kilograms E&M 65.97 kg Angi Juan " method used to obtain blood pressure automatic Angi Juan " Blood Pressure Position 01 sitting Angi [place] " blood pressure, site #1 left arm Angi Juan " temperature site oral Angi [place] " height E&M 72 [in_i] Angi Juan " height in centimeters E&M 182.88 cm Angi [place] oxygen saturation, oximetry 95 % Angi [place] " blood pressure, diastolic 88 mm[Hg] Angi Juan " blood pressure, systolic 129 mm[Hg] Angi [place] " pulse rate E&M 96 /min Angi Juan " temperature E&M 98.4 [degF] Angi Juan " weight E&M 142 lbs. Angi Juan " weight in kilograms E&M 64.55 kg Angi Juan " method used to obtain blood pressure automatic Angi Juan " Blood Pressure Position 01 sitting Angi [place] " blood pressure, site #1 left arm Angi Juan " temperature site oral Angi [place] " height E&M 72 [in_i] Angi [place] " height in centimeters E&M 182.88 cm Angi [place] blood pressure, diastolic 62 mm[Hg] Michelle Hill [...] Angi Burris " height E&M 72 [in_i] Agni Burris " height in centimeters E&M 182.88 [...] [place] " blood pressure, diastolic 75 mm[Hg] Isi Ruthy " blood pressure, systolic 110 mm[Hg] Isi Ruthy " pulse rate E&M 120 /min Isi Bliss " weight E&M 136 lbs. Isichanda Bliss " weight in kilograms E&M 61.82 kg Isichanda Bliss " height E&M 72 [in_i] Isi [...] Jessicarez " height E&M 72 [in_i] Deepika Chen [...] creatinine, urine, 24 hour 2076 mg/24h [facility] [id number] High " creatinine, random, urine 38.1 mg/dL [...] creatinine, urine, 24 hour 1562 mg/24h [facility] [id number] " creatinine, random, urine 25.4 mg/dL [facility] [...] [facility] 12.0-35.5 High " absolute CD8 1293 LinkLog [id number] High " T-helper cells (CD4) as percent of blood lymphocytes 46.6 % [facility] 30.8-58.5 " T-helper cells (CD4) count 1258 /UL Link[facility] [id number] vitamin D 25-hydroxy, serum 15.4 ng/mL Link[facility] 30.0-100.0 Low " rapid plasma reagin antibody, [...] >3.0 " B-12, serum 471 pg/mL [facility] [phone]/04/21 human leukocyte antigen B57 negative Sandra Monge [...] Vaccine Dose Lot Number Status riri klein [facility] [address]-01 sanofi pasteur 0.5 mL [id number] completed HISTORY OF MEDICATION USE Medication Instructions Dates Provider Comments MELOXICAM 7.5 MG ORAL TABLET Take 1 tablet orally once daily as needed Nela Shrikanth DRYSOL 20 % EXTERNAL SOLUTION Apply once daily Nela Shrikanth HYPERCARE 15 % EXTERNAL SOLUTION Apply once daily as needed Nela Santiikabethanyh FLUOXETINE 20 MG CAPSULE TAKE ONE CAPSULE BY MOUTH DAILY Marcelino Jefferson Callizo PIFELTRO 100 MG ORAL TABLET Take 1 tablet orally once daily Nela Shrikabethanyh ONDANSETRON 4 MG ORAL TABLET DISINTEGRATING 1 [...] ONE TABLET BY MOUTH ONCE DAILY Nela Shrikaanthony DESCOVY 200-25 MG ORAL TABLET 1 tab by mouth daily with food - Nelairina Schroeder PROZAC 40 MG ORAL CAPSULE 1 [...] though". Not homeless. Born in [facility]. City: [place]. State: [place]. Lives w/ mom and step-father in [place] [id number] cats. Unemployed since November 2016. Highest education level: bachelor's degree. Not in workforce. Not on disability. 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 Sex at : Male. Sexual orientation: Palacio. [...] though". Not homeless. Born in [facility]. City: [place]. State: [place]. Lives w/ mom and step-father in [address] Unemployed since November 2016. Highest education level: bachelor's degree. Not in workforce. Not on disability. 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 Sex at : Male. Sexual orientation: Palacio. Gender identity: Male. Gender of partner(s): Male. Age of first sexual intercourse: 17. Sexually Active: No. Not sexually active. Dorothy Pineda " social history reviewed E&M reviewed today Dorothy Pineda " assessment of health literacy ([facility] 2014 Standards, 3C10) Adequate Dorothy Edwin " passive cigarette smoke exposure No Dorothy Pineda " smoking status current every day smoker Dorothy Pineda sexual orientation Palacio Jess Barajas time of call 11/15/2019 1:21 PM Martha Stallworth drug use, illicit Previously Marcelino Farahtyo " alcohol use Currently Marcelino Leolga Farahtyo " smoking status current every day smoker [...] though". Not homeless. Born in [facility]. City: [place]. State: [place]. Lives w/ mom and step-father in [place], cats. Unemployed since November 2016. Highest education level: bachelor's degree. Not in workforce. Not on disability. 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 Sex at : Male. Sexual orientation: Palacio. Gender identity: Male. Gender of partner(s): Male. Age of first sexual intercourse: 17. Sexually Active: No. Not sexually active. Marcelino Breanneolga Farahjudah " social history reviewed E&M reviewed [...] though". Not homeless. Born in [facility]. City: [place]. [place]: [place]. Lives w/ mom and step-father in [place], 2 cats. Unemployed since November 2016. Highest education level: bachelor's degree. Not in workforce. Not on disability. 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 Sex at : Male. Sexual orientation: Palacio. Gender identity: Male. Gender of partner(s): Male. Age of first sexual intercourse: 17. Sexually Active: No. Not sexually active. Dorothy Pineda " social history reviewed E&M reviewed today Dorothy Pineda " assessment of health literacy ([facility] 2014 Standards, 3C10) Adequate Dorothy Pineda " passive cigarette smoke exposure No Dorothy Pineda " smoking status current every day smoker Dorothy Pineda drug use, illicit Previously Marcelino Li Calltyo " alcohol use Currently Marcelino Leolga Callizo [...] though". Not homeless. Born in [facility]. City: [place]. [place]: [place]. Lives w/ mom and step-father in [place], 2 cats. Unemployed since November 2016. Highest education level: bachelor's degree. Not in workforce. Not on disability. 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 Sex at : Male. Sexual orientation: Palacio. Gender identity: Male. Gender of partner(s): Male. Age of first sexual intercourse: 17. Sexually Active: No. Not sexually active. Marcelino Li Callizo " social history reviewed E&M reviewed today Marcelino Li Farahizo " sexual orientation Palacio Dylon Walker " is there any chance that you could be ? No Dylon Walker " assessment of health literacy ([facility] 2014 Standards, 3C10) Adequate Dylon Walker " [...] though". Not homeless. Born in [place]. City: [place]. State: [place]. Lives w/ mom and step-father in [place], 2 cats. Unemployed since November 2016. Highest education level: bachelor's degree. Not in workforce. Not on disability. 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 Sex at : Male. Sexual orientation: Palacio. [...] though". Not homeless. Born in [facility]. City: [place]. [place]: [place]. Lives w/ mom and step-father in [place], 2 cats. Unemployed since November 2016. Highest education level: bachelor's degree. Not in workforce. Not on disability. 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 Sex at : Male. Sexual orientation: Palacio. Gender identity: Male. Gender of partner(s): Male. Age of first sexual intercourse: 17. Sexually Active: No. Not sexually active. Dorothy Pineda " social history reviewed E&M reviewed today Dorothy Edwin " assessment of health literacy ([facility] 2014 Standards, 3C10) Adequate Dorothy Pineda " passive cigarette smoke exposure No Dorothy Pineda " smoking status current every day smoker Dorothy Edwin drug use, illicit Previously Cliff Jackson " [...] though". Not homeless. Born in [facility]. City: [place]. [place]: [place]. Lives w/ mom and step-father in [place], 2 cats. Unemployed since November 2016. Highest education level: bachelor's degree. Not in workforce. Not on disability. 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 Sex at : Male. Sexual orientation: Palacio. Gender identity: Male. Gender of partner(s): Male. Age of first sexual intercourse: 17. Sexually Active: No. Not sexually active. Cliff Jackson " social history reviewed E&M reviewed today Cliff Jackson " is there any chance that you could be ? No Cliff Jackson " assessment of health literacy ([facility] 2014 Standards, 3C10) Adequate Cliff Jackson " [...] Crawford time of call 05/21/2019 4:17 PM Leonorviktor Napier drug use, illicit Previously Cliff Jackson [...] though". Not homeless. Born in [facility]. City: [place]. [place]: [place]. Lives w/ mom and step-father in [place], cats. Unemployed since November 2016. Highest education level: bachelor's degree. Not in workforce. Not on disability. 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 Sex at : Male. Sexual orientation: Palacio. Gender identity: Male. Gender of partner(s): Male. Age of first sexual intercourse: 17. Sexually Active: No. Not sexually active. Cliff Jackson " social history reviewed E&M reviewed today Cliff Jackson " is there any chance that you could be ? No Cliff Jackson " assessment of health literacy ([facility] 2014 Standards, 3C10) Adequate Cliff [...] though". Not homeless. Born in [facility]. City: [place]. [place]: [place]. Lives w/ mom and step-father in [place], 2 cats. Unemployed since November 2016. Highest education level: bachelor's degree. Not in workforce. Not on disability. 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 Sex at : Male. Sexual orientation: Palacio. Gender identity: Male. Gender of partner(s): Male. Age of first sexual intercourse: 17. Sexually Active: No. Not sexually active. Angi Martinez " social history reviewed E&M reviewed today Angi Martinez " sexual orientation Palacio Angi Martinez " is there any chance that you could be ? No Angi Martinez " assessment of health literacy ([facility] Standards, 3C10) Adequate Angi Martinez [...] though". Not homeless. Born in [facility]. City: [place]. [place]: [place]. Lives w/ mom and step-father in [place], 2 cats. Unemployed since November 2016. Highest education level: bachelor's degree. Not in workforce. Not on disability. 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 Sex at : Male. Sexual orientation: Palacio. Gender identity: Male. Gender of partner(s): Male. Age of first sexual intercourse: 17. Sexually Active: No. Not sexually active. Angi Martinez " social history reviewed E&M reviewed today Angi Martinez " sexual orientation Palacio Angi Juan " is there any chance that you could be ? No Angi Martinez " assessment of health literacy ([facility] 2014 Standards, 3C10) Adequate Angi Martinez " [...] though". Not homeless. Born in [facility]. City: [place]. [place]: [place]. Lives w/ mom and step-father in [place], 2 cats. Unemployed since November 2016. Highest education level: bachelor's degree. Not in workforce. Not on disability. 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 Sex at : Male. Sexual orientation: Palacio. [...] Michelle Hill " assessment of health literacy ([facility] 2014 Standards, 3C10) Adequate Michelleadam Hill " passive cigarette smoke exposure Yes Michelleadam Hill " smoking status current every day smoker Michelleadam Hill alcohol use Currently Elizabeth Kessler " drug use, illicit Previously Elizabeth Checo " is there any chance that you could be ? No Elizabeth Kessler " sexual orientation Palacio Elizabeth Kessler " passive cigarette smoke exposure No Elizabeth Wolffley " smoking status current every day smoker Elizabeth Kessler " assessment of health literacy ([facility] 2014 Standards, 3C10) Adequate Elizabeth Kessler " [...] Hill " passive cigarette smoke exposure No Michelleaadm Hill " smoking status current every day smoker Michelleadam Hill " assessment of health literacy ([facility] 2014 Standards, 3C10) Adequate Michelle Sergio smoking [...] T Sandra Monge " Nutrition intervention T Sandrakaylen Monge " drug use, illicit Previously Deepika [...] though". Not homeless. Born in [facility]. City: [place]. [place]: [place]. Lives w/ mom and step-father in [place], cats. Unemployed since November 2016. Highest education level: bachelor's degree. Not in workforce. Not on disability. 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 Sex at : Male. Sexual orientation: Palacio. [...] Deepika Chen " assessment of health literacy ([facility] 2014 Standards, 3C10) Adequate Deepika Chen Exercise [...] though". Not homeless. Born in [facility]. City: [place]. [place]: [place]. Lives w/ mom and step-father in [place], cats. Unemployed since November 2016. Highest education level: bachelor's degree. Not in workforce. Not on disability. 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 Sex at : Male. Sexual orientation: Palacio. Gender identity: Male. Gender of partner(s): Male. Age of first sexual intercourse: 17. Sexually Active: No. Not sexually active. Deepika Chen " social history reviewed E&M reviewed today Deepika Chen " drug use, illicit Previously Deepika Jessicarez " alcohol use Currently Deepika Jessicarez " sexual orientation Palacio Deepika Jessicarez " passive cigarette smoke exposure No Deepika Jessicarez " smoking, advice to quit Yes Deepika Jessicarez " smoking status current every day smoker Deepika Jessicarez " assessment of health literacy ([facility] 2014 Standards, 3C10) Adequate Deepika Chen Exercise Program Referral Mendez Monge " Weight Management Counseling Provided Mendez Monge " Nutrition intervention Mendez Mnoge " smoking, advice to quit Yes Sandra Monge " drug use, illicit Previously Deepika Jessicarez " alcohol use Currently Deepikabeatris Jessicarez " social history E&M Single. Single. Parents when pt was age 16, mother and father both remarried. Relationship with father "I love him but don't like him... we talk on phone 1x a week". Relationship with mother and step-father "perfect and very good". One younger brother, "get along well, he is very busy though". Not homeless. Born in [facility]. City: [place]. [place]: [place]. Lives w/ mom and step-father in [place], 2 cats. Unemployed since November 2016. Highest education level: bachelor's degree. Not in workforce. Not on disability. 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 Sex at : Male. Sexual orientation: Palacio. Gender identity: Male. Gender of partner(s): Male. Age of first sexual intercourse: 17. Sexually Active: No. Not sexually active. Deepikamarco antonio Chen " social history reviewed E&M reviewed today Deepika Valentinoierrez " sexual orientation Palacio Deepika Jessicarez " passive cigarette smoke exposure No Deepika Jessicarez " smoking status current every day smoker Deepika Jessicarez " assessment of health literacy ([facility] 2014 Standards, 3C10) Adequate Deepika Chen social [...] though". Not homeless. Born in [facility]. City: [place]. [place]: [place]. Lives w/ mom and step-father in [place], 2 cats. Unemployed since November 2016. Highest education level: bachelor's degree. Not in workforce. Not on disability. 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 Sex at : Male. Sexual orientation: Palacio. 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 Jasper Garduno " social history reviewed E&M reviewed today Sandra Monge " social history E&M Single. Spouse/Partner/Significant Other: n/a. Family is aware and supportive. Not homeless. Born in [facility]. City: [place]. [place]: [place]. [place] [facility] [place] stepdad in [place] in [facility]. Not employed. Highest education level: bachelor's [...] Monge " home/family situation, assessment [place] [facility] [place] and stepdad in [place] in [facility]. Sandra Monge " family support Family is aware and supportive. Sandra Monge " smoking, advice to quit Yes Sandra Monge " assessment of health literacy ([facility] 2014 Standards, 3C10) Adequate Sandra Monge " [...] oriented to time, place, and person Nela Black " assessment of mood and affect E&M no depression, anxiety, or agitation Nela Schroeder " Generalized Anxiety Disorder Questionnaire - Question 2 0 Dorothy Pineda " Generalized Anxiety Disorder Questionnaire - Question 1 0 Dorothy Pineda assessment of judgment and insight E&M intact Nela Shrikanth " assessment of mood and affect E&M good eye contact, normal affect [facility] " Generalized Anxiety Disorder Questionnaire - Question [...] of judgment and insight E&M intact Nela Wayneh " mental status examination: orientation E&M oriented to time, place, and person Nela Wayneh " assessment of mood and affect E&M no depression, anxiety, or agitation Nela Shrkendranth " Generalized Anxiety Disorder Questionnaire - Question [...] (mental status exam) (E&M) lucid Marcelino Raymundooz Callizo " mental status assessment, process able [...] cooperative, good eye contact, polite, responsive Marcelino Breanneoz Callizo " mental appearance (mental status exam) [...] Disorder Questionnaire - Question 2 0 Cliff aJckson " Generalized Anxiety Disorder Questionnaire - Question [...] Disorder Questionnaire - Question 1 0 Angi Juan assessment of mood and affect E&M good [...] of judgment and insight E&M intact Sandra Maripoas " mental status examination: orientation E&M oriented to time, place, and person Sandra Mariposa " assessment of mood and affect E&M no depression, anxiety, or agitation Sandra Mariposa " Generalized Anxiety Disorder Questionnaire - Question 2 0 Elizabeth Kessler " Generalized Anxiety Disorder Questionnaire - Question 1 0 Elizabeth Kessler mental status assessment, judgment fair Maryan Bulmaroiuddin [...] status assessment, sensorium alert, attentive, clear Garettshan Bulmaroiuddin " affect (mental status exam) congruent, euthymic, normal intensity, normal range Garettshan Samiuddin " mood (mental status exam) pleasant Garettshan Bulmaroiuddin " mental status assessment, speech activity normal flow, normal pace, normal pressure, normal rate, normal tone, normal volume, spontaneous, loud Maryan Bulmaroiuddin " mental status assessment, motor activity normal gait, normal posture Buck Chamberlainiuddin " behavior (mental status exam) appropriate, candid, cooperative, good eye contact, polite, responsive Buck Keatinguddin " mental appearance (mental status exam) adequate hygiene, appropriate dress, looks like stated age, neat Buck Bulmarokaden assessment of judgment and insight E&M intact [...] Michelle Hill mental status assessment, judgment fair Garettshan Bulmaroiuddin [...] appropriate dress, looks like stated age, satya Bajwashan Samiuddin mental status assessment, judgment fair Zishan [...] looks like stated age, neat Garettshan Samiuddin mood (mental status exam) pleasant Zishan Samiuddin " anxiety worry a lot, sleep disturbance Zishan Samiuddin " mental status assessment, judgment fair [facility] " insight (mental status exam) fair [facility] " Mental Status Exam: intelligence adequate fund of information, intact memory processes, oriented to person, oriented to place, oriented to time, oriented to situation, oriented to reality Garettmaritza Ledesma " hallucinations none [facility] " thought content (mental status exam) (E&M) lucid Garettmaritza Ledesma " mental status assessment, process able to abstract, goal-directed, logical [facility] " mental status assessment, sensorium alert, attentive, clear [facility] " affect (mental status exam) congruent, euthymic, normal intensity, normal range [facility] " mental status assessment, speech activity normal flow, normal pace, normal pressure, normal rate, normal tone, normal volume, spontaneous, loud [facility] " mental status assessment, motor activity normal gait, normal posture [facility] " behavior (mental status exam) appropriate, candid, cooperative, good eye contact, polite, responsive [facility] " mental appearance (mental status exam) adequate hygiene, appropriate dress, looks like stated age, neat [facility] assessment of judgment and insight E&M intact [...] Covered libertarian ID *Jasper White 0-100% Other [id number] Sliding Fee - Cat 1 T-Quad 22 insurance [employer]oc [id number] *Jasper White 0-100% Other Sliding Fee - Cat 1 T-Quad [employer] insurance company *Jasper White 0-100% Other [id number] *Jasper White 0-100% Other Sliding Fee - Cat 1 T-Quad 22 insurance [employer] [id number] *Jasper White 0-100% Other [id number] [employer] Name Date DISCUSSED - NO [...] - - - - hypercalcemia - - Primary Care Service Linkage Est Patient Detailed - 93687 Xray - Spine - Lumboacral - InHouse Est Patient Detailed - 77635 Est Patient Comprehensive Opth - 34333 Est Patient Intermediate Opth - 10558 Est Patient Exp Problem - 55693 Est Patient Detailed - 32808 Est Patient Detailed - 83071 Est Patient Exp Problem - 34741 Est Patient Exp Problem - 24182 Ofc Vst, Est Level III Est Patient Detailed - 85911 First Vx - Ix admin via ID IM or jet injects without counseling by physician Menactra Intramuscular Injectable Vision Vaccines Ordered - Print Consent/Declination Forms Ofc Vst, Est Level IV Xray - Chest - 2 Views - InHouse Handling of specimen for transfer Venipuncture Est Patient Detailed - 74327 Dispensing Visit (UNLIVSTED OPHTHALMOLOGICAL SERVICE/PROCEDURE) INFLUENZA VACCINE QUADRIVALENT 3 YRS PLUS IM Pneumovax Vaccine PPSV23 Admin of Vaccine - Injection - Each Add'l Admin of Vaccine - Injection - 1 Est Patient Detailed - 62575 Progressive lens, per lens Frames, purchases Est Patient Comprehensive Opth - 06377 New Patient Intermediate Opth - 20295 Est Patient Detailed - 61686 Est Patient Detailed - 91040 Est Patient Detailed - 83135 Est Patient Detailed - 54422 Est Patient Exp Problem - 43321 Est Patient Detailed - 59389 Diagnostic evaluation with medical - 54031 INFLUENZA VACCINE QUADRIVALENT 3 YRS PLUS IM Admin of Vaccine - Injection - 1 Est Patient Detailed - 26691 Est Patient Detailed - 78353 Prevnar (PCV13) IM TDAP Admin of Vaccine - Injection - Each Add'l Admin of Vaccine - Injection - 1 Est Patient Well Exam (40 - 64 Yrs) - 89097 Primary Care Service Linkage [facility] - Psychiatry Diagnostic evaluation (no medical) - 96634 IB Assessment - Alternative Energy Engineer Primary Care Service Linkage Xray - Chest - PA & Lat - InHouse Primary Care Service Linkage Handling of specimen for transfer Venipuncture Integrated Behavioral Health Assessment (IBH) New Patient Well Exam (40 - 64 Yrs) - 55250 Handling of specimen for transfer Venipuncture HISTORY OF PROCEDURES Procedure Date Procedure Name Provider Procedure Notes Status Primary Care Service Linkage Maximus Yancey Time spent with patient: 15 completed Est Patient Comprehensive Opt - 54674 Edgard Martin completed Est Patient Intermediate Opt - 07229 Crhiss Martin completed First Vx - Ix admin via ID IM or jet injects without counseling by physician Nela Schroeder completed Menactra Intramuscular Injectable Nela Schroeder completed Vaccines Ordered - Print Consent/Declination Forms Nela Schroeder completed Venipuncture Sandra Monge completed Dispensing Visit (UNLIVSTED OPHTHALMOLOGICAL SERVICE/PROCEDURE) Jazmin Bullard completed Progressive lens, per lens Jazmin Bullard completed Frames, purchases Jazmin [place] [employer] Frame #1111 (Pd 60.00) completed Est Patient Comprehensive Opt - 40451 Edgard Martin completed New Patient Intermediate Opt - 86676 Chriss Martin completed Diagnostic evaluation with medical - 54257 Buck Ledesma completed Primary Care Service Linkage Maximus Yancey Time spent with patient: 30 completed Diagnostic evaluation (no medical) - 82630 Jasper Garduno completed IB Assessment - Alternative Energy Engineer Jasper Garduno completed Primary Care Service Linkage Maximus Yancey Time spent with patient: 30 completed Primary Care Service Linkage Maximus Yancey Time spent with patient: 30 completed Venipuncture Sandra Monge completed Venipuncture Sandra Monge completed GOALS No Information Available HEALTH CONCERNS No Information Available
--- NOTE | 2020-02-10 16:00 | Diagnostic Imaging Report ---
EXAM: CHEST SINGLE (PORTABLE) DATE: 02/10/2020 2:11 PM INDICATION: Shortness of breath COMPARISON: 02/03/2020 FINDINGS: The lungs are remain hyperinflated which can be seen in the setting of COPD/emphysema. The trachea is midline. There is no evidence for large focal consolidation, pneumothorax, or significant pleural effusion. The cardiomediastinal silhouette and pulmonary vasculature are within normal limits. No acute osseous abnormality is identified. IMPRESSION: No acute cardiopulmonary process or significant interval change identified from 02/03/2020. Signed by: Dr. Vasile Stern MD on 02/10/2020 3:56 PM
== END 2020-02-10 16:11 | disposition home or self-care (01) ==
LOC: ER 13:53
DX: R05 Cough (principal); B34.9 Viral infection, unspecified
CPT/HCPCS: 71045; 99282

== ENCOUNTER 2020-02-11 19:43 | Emergency (ER) | payer SELFPAY ==
[~2020-02-11] VITALS: Ht 182.9 cm; Wt 61.2 kg
[2020-02-11 20:15] VITALS: BP 136/82
--- NOTE | 2020-02-11 20:15 | NUR ---
PT INFORMED UNIVERSITY DEMONSTRATOR HE WAS HOLLERED AT BY THE DOCTOR AND WAS NOT GOING TO TAKE THAT. WALKED OUT.....DR LENZ STATES HE HAD NOT BEEN IN TO SEE THE PATIENT YET SO HE COULD NOT HAVE HOLLERED AT THE PT. PT LWBS
== END 2020-02-11 20:15 | disposition left against medical advice (07) ==
LOC: FSED 19:43
DX: R51 Headache (principal)

== ENCOUNTER 2021-01-03 17:51 | Emergency (ER) | payer SELFPAY ==
[~2021-01-03] VITALS: Ht 182.9 cm; Wt 61.2 kg
[2021-01-03 18:24] LABS: BASOPHILS # (AUTO) 0.1 (0.0-0.1); BASOPHILS % 0.8 % (0.0-1.0); EOSINOPHILS # (AUTO) 0.1 (0.0-0.4); EOSINOPHILS % 2.3 % (0.0-6.0); HEMATOCRIT 40.5 % (38.2-49.6); LYMPHOCYTES # (AUTO) 2.4 (1.0-3.2); LYMPHOCYTES % 39.3 % (18.0-39.1); MEAN CORPUSCULAR HEMOGLOBIN 28.7 pg (28-32); MEAN CORPUSCULAR HGB CONC 32.1 g/dL (31-35); MEAN CORPUSCULAR VOLUME 89.4 fL (81-99); MONOCYTES # (AUTO) 0.7 (0.2-0.8); MONOCYTES % 11.1 % (4.4-11.3); NEUTROPHILS # (AUTO) 2.8 (2.1-6.9); NEUTROPHILS % 46.3 % (38.7-80.0); PLATELET COUNT 237 x10e3/uL (140-360); RED BLOOD COUNT 4.53 x10e6/uL (4.3-5.7); RED CELL DISTRIBUTION WIDTH 13.2 % (11.7-14.4)
[2021-01-03 18:43] LABS: ALANINE AMINOTRANSFERASE 14 IU/L (0-55); ALBUMIN/GLOBULIN RATIO 1.1 (0.8-2.0); ALKALINE PHOSPHATASE 88 IU/L (40-150); ANION GAP 12.6 mmol/L (8-16); BLOOD UREA NITROGEN 21 mg/dL (7-26); BUN/CREATININE RATIO 16 (6-25); CALCIUM 9.6 mg/dL (8.4-10.2); CARBON DIOXIDE 29 mmol/L (22-29); CHLORIDE 103 mmol/L (98-107); CREATINE KINASE 63 IU/L (30-200); EST GLOMERULAR FILTRATION RATE 59 ML/MIN (60-); GLUCOSE 89 mg/dL (74-118); POTASSIUM 4.6 mmol/L (3.5-5.1); SODIUM 140 mmol/L (136-145)
[2021-01-03 19:44] VITALS: BP 121/99
== END 2021-01-03 19:47 | disposition home or self-care (01) ==
LOC: ER 17:58
DX: S00.83XA Contusion of other part of head, initial encounter (principal); W18.09XA Striking against other object with subsequent fall, initial encounter; Y93.01 Activity, walking, marching and hiking; Y92.002 Bathroom of unspecified non-institutional (private) residence as the place of occurrence of the external cause; I10 Essential (primary) hypertension; J44.9 Chronic obstructive pulmonary disease, unspecified; B20 Human immunodeficiency virus [HIV] disease; F41.9 Anxiety disorder, unspecified; E51.2 Wernicke's encephalopathy
CPT/HCPCS: 36415; 70450; 80053; 82550; 82553; 84484; 85025; 99283

== ENCOUNTER 2024-08-03 13:58 | Emergency (ER) | payer MEDICARE ==
[~2024-08-03] VITALS: Ht 182.9 cm; Wt 61.2 kg
[2024-08-03 14:19] VITALS: PULSE 93; RESP 14; TEMP 98.9; O2SAT 99
== END 2024-08-03 18:12 | disposition left against medical advice (07) ==
LOC: ER 14:31
DX: L72.8 Other follicular cysts of the skin and subcutaneous tissue (principal); Z53.21 Procedure and treatment not carried out due to patient leaving prior to being seen by health care provider
CPT/HCPCS: 99282